=== PATIENT | female | born 1945 | race Caucasian/White ===

== ENCOUNTER 2016-06-10 08:32 | Inpatient (IN) | payer MEDICARE, OTHER ==
[2016-06-10] MEDS ORDERED: ONDANSETRON 4 MG/2 ML VIAL IVP STA (08:39)
--- NOTE | 2016-06-10 08:43 | ED ---
Abdominal Pain HPI - General Stated Complaint: Lethargic/Dehydrated Time Seen by Provider: 06/10/16 08:39 Source: patient, EMS, RN notes reviewed Mode of arrival: EMS Limitations: no limitations - History of Present Illness Initial Comments: This is a 71-year-old female presents emergency department via EMS chief complaint of nausea, vomiting, diarrhea, abdominal pain. Patient states this started on Saturday. Patient states she believes she had a UTI that she call her primary care physician who called her in [facility]. Patient states that the antibiotic seemed different than what she usually takes. Patient states she does have frequent UTIs. Patient states that she feels sick now from 1 dose of antibiotics that she started yesterday. Patient denies any known fever. Patient states that she has lower abdominal pain, some back discomfort. Patient states that she's had multiple abdominal surgeries secondary to colon cancer. Patient denies any chest pain or shortness of breath. Denies any cold- like symptoms. - Related Data Home Medications Medication Instructions Recorded Confirmed ALPRAZolam [Xanax] 0.25 mg PO BID PRN 02/22/16 06/10/16 Albuterol Sulfate [Proair Hfa] 1 puff INHALATION RT-Q6H PRN 02/22/16 06/10/16 Atenolol [Tenormin] 25 mg PO BID 02/22/16 06/10/16 Baclofen [Lioresal] 10 mg PO AC-TID 02/22/16 06/10/16 DULoxetine HCL [Cymbalta] 60 mg PO BID 02/22/16 06/10/16 Famotidine [Pepcid] 40 mg PO BID 02/22/16 06/10/16 Fluticasone/Salmeterol [Advair Hfa 2 puff INHALATION RT-BID 02/22/16 06/10/16 115-21 Mcg Inhaler] Folic Acid 2 mg PO DAILY@1600 02/22/16 06/10/16 Lansoprazole 30 mg PO DAILY@1600 02/22/16 06/10/16 Levothyroxine Sodium [Synthroid] 25 mcg PO DAILY 02/22/16 06/10/16 Loperamide [Imodium] 2 mg PO AC-SUPPER 02/22/16 06/10/16 Losartan [Cozaar] 50 mg PO AC-LUNCH 02/22/16 06/10/16 Pravastatin Sodium [Pravachol] 80 mg PO HS 02/22/16 06/10/16 busPIRone HCL 15 mg PO BID 02/22/16 06/10/16 levETIRAcetam [Keppra] 500 mg PO Q12HR 02/22/16 06/10/16 oxyCODONE-APAP 10-325MG [Percocet 1 tab PO Q6HR PRN 02/22/16 06/10/16 10-325 mg] Ergocalciferol [Vitamin D2] 50,000 unit PO Q7D 06/10/16 06/10/16 Allergies Allergy/AdvReac Type Severity Reaction Status Date / Time fluoxetine [From Prozac] Allergy Unknown Verified 06/10/16 08:50 indomethacin [From Indocin] Allergy Unknown Verified 06/10/16 08:50 Penicillins Allergy Anaphylaxis Verified 06/10/16 08:50 Sulfa (Sulfonamide AdvReac Nausea & Verified 06/10/16 12:08 Antibiotics) Vomiting & Diarrhea Review of Systems ROS Statement: Those systems with pertinent positive or pertinent negative responses have been documented in the HPI. ROS Other: All systems not noted in ROS Statement are negative. Past Medical History Past Medical History: Cancer, Hypertension Additional Past Medical History / Comment(s): anal ca History of Any Multi-Drug Resistant Organisms: None Reported Past Surgical History: Back Surgery, Orthopedic Surgery Additional Past Surgical History / Comment(s): hip knee surg Past Psychological History: No Psychological Hx Reported Smoking Status: Current every day smoker Past Alcohol Use History: None Reported Past Drug Use History: None Reported General Exam General appearance: alert, in no apparent distress Head exam: Present: atraumatic, normocephalic, normal inspection Respiratory exam: Present: normal lung sounds bilaterally. Absent: respiratory distress, wheezes, rales, rhonchi, stridor Cardiovascular Exam: Present: regular rate, normal rhythm, normal heart sounds. Absent: systolic murmur, diastolic murmur, rubs, gallop, clicks GI/Abdominal exam: Present: soft, tenderness (Mild suprapubic tenderness), normal bowel sounds, other (Multiple surgical scars noted). Absent: distended, guarding, rebound, rigid Back exam: Absent: CVA tenderness (R), CVA tenderness (L) Neurological exam: Present: alert, oriented X3, CN II-XII intact Skin exam: Present: warm, dry, intact, normal color. Absent: rash Course Vital Signs 06/10/16 06/10/16 06/10/16 08:36 09:40 09:58 Temperature 98.1 F 97.8 F Pulse Rate 74 73 76 Respiratory 16 16 Rate Blood Pressure 97/55 76/47 90/50 O2 Sat by Pulse 92 L 95 98 Oximetry 06/10/16 06/10/16 06/10/16 10:18 10:38 10:58 Temperature Pulse Rate 80 80 82 Respiratory Rate Blood Pressure 80/52 84/51 84/53 O2 Sat by Pulse 97 97 94 L Oximetry Medical Decision Making - Lab Data Result diagrams: 06/10/16 08:00 06/10/16 08:00 Lab Results 06/10/16 06/10/16 06/10/16 Range/Units 08:00 08:00 08:00 WBC 11.8 H (3.8-10.6) k/uL RBC 3.14 L (3.80-5.40) m/uL Hgb 9.8 L (11.4-16.0) gm/dL Hct 31.4 L (34.0-46.0) % MCV 99.9 (80.0-100.0) fL MCH 31.1 (25.0-35.0) pg MCHC 31.2 (31.0-37.0) g/dL RDW 15.8 H (11.5-15.5) % Plt Count 225 (150-450) k/uL Neutrophils % (Manual) 88.0 % Lymphocytes % (Manual) 4.0 % Monocytes % (Manual) 8.0 % Neutrophils # (Manual) 10.4 H (1.3-7.7) k/uL Lymphocytes # (Manual) 0.5 L (1.0-4.8) k/uL Monocytes # (Manual) 0.9 (0-1.0) k/uL Nucleated RBCs 0 (0-0) /100 WBC Macrocytosis Slight Rouleaux Present PT 10.3 (9.0-12.0) sec INR 1.0 (<1.1) APTT 29.0 (22.0-30.0) sec Sodium 141 (137-145) mmol/L Potassium 3.8 (3.5-5.1) mmol/L Chloride 108 H (98-107) mmol/L Carbon Dioxide 21 L (22-30) mmol/L Anion Gap 12 mmol/L BUN 36 H (7-17) mg/dL Creatinine 1.58 H (0.52-1.04) mg/dL Est GFR (MDRD) Af Amer 39 (>60 ml/min/1.73 sqM) Est GFR (MDRD) Non-Af 32 (>60 ml/min/1.73 sqM) Glucose 94 (74-99) mg/dL Plasma Lactic Acid Juan (0.7-2.0) mmol/L Calcium 8.2 L (8.4-10.2) mg/dL Total Bilirubin 0.5 (0.2-1.3) mg/dL AST 41 H (14-36) U/L ALT 52 (9-52) U/L Alkaline Phosphatase 112 (38-126) U/L Troponin I (0.000-0.034) ng/mL Total Protein 5.6 L (6.3-8.2) g/dL Albumin 2.7 L (3.5-5.0) g/dL Amylase <30 L (30-110) U/L Lipase 42 (23-300) U/L Urine Color Urine Appearance (Clear) Urine pH (5.0-8.0) Ur Specific [place] (1.001-1.035) Urine Protein (Negative) Urine Glucose (UA) (Negative) Urine Ketones (Negative) Urine Blood (Negative) Urine Nitrate (Negative) Urine Bilirubin (Negative) Urine Urobilinogen (<2.0) mg/dL Ur Leukocyte Esterase (Negative) Urine RBC (0-5) /hpf Urine WBC (0-5) /hpf Urine WBC Clumps (None) /hpf Amorphous Sediment (None) /hpf Urine Bacteria (None) /hpf 06/10/16 06/10/16 06/10/16 Range/Units 08:10 09:57 09:57 WBC (3.8-10.6) k/uL RBC (3.80-5.40) m/uL Hgb (11.4-16.0) gm/dL Hct (34.0-46.0) % MCV (80.0-100.0) fL MCH (25.0-35.0) pg MCHC (31.0-37.0) g/dL RDW (11.5-15.5) % Plt Count (150-450) k/uL Neutrophils % (Manual) % Lymphocytes % (Manual) % Monocytes % (Manual) % Neutrophils # (Manual) (1.3-7.7) k/uL Lymphocytes # (Manual) (1.0-4.8) k/uL Monocytes # (Manual) (0-1.0) k/uL Nucleated RBCs (0-0) /100 WBC Macrocytosis Rouleaux PT (9.0-12.0) sec INR (<1.1) APTT (22.0-30.0) sec Sodium (137-145) mmol/L Potassium (3.5-5.1) mmol/L Chloride (98-107) mmol/L Carbon Dioxide (22-30) mmol/L Anion Gap mmol/L BUN (7-17) mg/dL Creatinine (0.52-1.04) mg/dL Est GFR (MDRD) Af Amer (>60 ml/min/1.73 sqM) Est GFR (MDRD) Non-Af (>60 ml/min/1.73 sqM) Glucose (74-99) mg/dL Plasma Lactic Acid Juan 1.0 (0.7-2.0) mmol/L Calcium (8.4-10.2) mg/dL Total Bilirubin (0.2-1.3) mg/dL AST (14-36) U/L ALT (9-52) U/L Alkaline Phosphatase (38-126) U/L Troponin I <0.012 (0.000-0.034) ng/mL Total Protein (6.3-8.2) g/dL Albumin (3.5-5.0) g/dL Amylase (30-110) U/L Lipase (23-300) U/L Urine Color Yellow Urine Appearance Cloudy H (Clear) Urine pH 6.0 (5.0-8.0) Ur Specific [place] 1.014 (1.001-1.035) Urine Protein 2+ H (Negative) Urine Glucose (UA) Negative (Negative) Urine Ketones Negative (Negative) Urine Blood Small H (Negative) Urine Nitrate Negative (Negative) Urine Bilirubin Negative (Negative) Urine Urobilinogen 2.0 (<2.0) mg/dL Ur Leukocyte Esterase Moderate H (Negative) Urine RBC 7 H (0-5) /hpf Urine WBC 29 H (0-5) /hpf Urine WBC Clumps Few H (None) /hpf Amorphous Sediment Occasional H (None) /hpf Urine Bacteria Occasional H (None) /hpf Disposition Clinical Impression: UTI (urinary tract infection), Dehydration, Pneumonitis, Weakness, Nausea vomiting and diarrhea Disposition: ADMITTED IP TO THIS HOSP Condition: Fair Time of Disposition: 12:42
[2016-06-10] MEDS: SODIUM CHLORIDE 0.9% 1,000 ML IV STA ×2 (08:54→10:37)
[2016-06-10 09:06] LABS: Aty Lym Flag Slight; CH 31.4; CHCM 31.5; HCT 31.4 % (34.0-46.0); HDW 2.33; HGB 9.8 gm/dL (11.4-16.0); MCH 31.1 pg (25.0-35.0); MCHC 31.2 g/dL (31.0-37.0); MCV 99.9 fL (80.0-100.0); Macrocytosis Slight; Mean Platelet Volume 8.8; RBC 3.14 m/uL (3.80-5.40); RDW 15.8 % (11.5-15.5); WBC 11.8 k/uL (3.8-10.6); WBC (Perox) 12.08
[2016-06-10 09:14] LABS: Prothrombin Time 10.3 sec (9.0-12.0)
[2016-06-10] MEDS ORDERED: SODIUM CHLORIDE 0.9% 1,000 ML IV ONE ×2 (09:19→12:40)
[2016-06-10 09:21] LABS: ALT 52 U/L (9-52); AST 41 U/L (14-36); Alkaline Phosphatase 112 U/L (38-126); Amylase <30 U/L (30-110); Anion Gap 12 mmol/L; Blood Urea Nitrogen 36 mg/dL (7-17); Calcium 8.2 mg/dL (8.4-10.2); Carbon Dioxide 21 mmol/L (22-30); Chloride 108 mmol/L (98-107); Glucose 94 mg/dL (74-99); Non-African American GFR(MDRD) 32 (>60 ml/min/1.73 sqM); Potassium 3.8 mmol/L (3.5-5.1); Sodium 141 mmol/L (137-145); Total Bilirubin 0.5 mg/dL (0.2-1.3); Total Protein 5.6 g/dL (6.3-8.2)
[2016-06-10 09:59] LABS: Add Differential Manual Differential
[2016-06-10 10:00] LABS: Nucleated Red Blood Cells 0 /100 WBC (0-0); Total Cells Counted 100
[2016-06-10] MEDS ORDERED: LEVOFLOXACIN 750MG-D5W PMX 750 MG in DEXTROSE/WATER 1 150ML.BAG IVPB STA (10:00)
[2016-06-10 10:01] LABS: Rouleaux Present
[2016-06-10 10:17] LABS: Amorphous Sediment,Urine Occasional /hpf; Appearance,Urine Cloudy (Clear); Bacteria,Urine Occasional /hpf; Bilirubin,Urine Negative (Negative); Glucose,Urine (UA) Negative (Negative); Ketones,Urine Negative (Negative); Leukocyte Esterase,Urine Moderate (Negative); Nitrite,Urine Negative (Negative); Particle Count 11376; Protein,Urine 2+ (Negative); RBC,Urine 7 /hpf (0-5); Specific Gravity,Urine 1.014 (1.001-1.035); UA Billing (MACRO vs. MICRO) MICRO; WBC,Urine 29 /hpf (0-5)
--- NOTE | 2016-06-10 11:32 | XR ---
EXAMINATION TYPE: XR chest 1V DATE OF EXAM: 06/10/2016 11:27 AM COMPARISON: 04/11/2012 HISTORY: Shortness of breath TECHNIQUE: Single frontal view of the chest is obtained. FINDINGS: Hyperinflation suggests COPD. No definite pleural effusion or pneumothorax. Coarsened inte rstitium noted. IMPRESSION: 1. COPD correlate for mild venous congestion or interstitial pneumonitis superimposed on a background COPD.
--- NOTE | 2016-06-10 11:33 | XR ---
EXAMINATION TYPE: XR KUB DATE OF EXAM: 06/10/2016 11:27 AM COMPARISON: NONE HISTORY: Abdominal pain, nausea and vomiting FINDINGS: There are air-fluid levels with dilated small bowel loops. Air is seen distally within the colon. Sco liosis and postsurgical changes seen. Postsurgical changes involving the hip joints. IMPRESSION: 1. Nonspecific abdomen. Differential include enteritis or ileus. Partial obstruction not excluded. C orrelate clinically.
[2016-06-10] MEDS ORDERED: ONDANSETRON 4 MG/2 ML VIAL IVP PRN (12:42)
[2016-06-10] MEDS ORDERED: NALOXONE 0.4 MG/ML 1 ML VIAL IV PRN (12:42)
--- NOTE | 2016-06-10 15:41 | P.HPIM ---
History of Present Illness H&P Date: 06/10/16 Chief Complaint: Abdominal pain, altered mental status, UTI with failure to outpatient treat 71-year-old female one of Dr. Delaney's patient is known to have history of colorectal cancer recurrent UTI history of COPD chronic smoking chronic depression and hypothyroidism. Patient apparently was diagnosed with UTI sometime this past week Bactrim was called to the pharmacy patient is taking it yesterday she developed to have significant increase symptom with frequency urgency mild confusion and altered mental status along with worsening pain in the pelvic and lower abdominal area with more change of pinkish color urination with no clot at the time. With severe generalized fatigue and tiredness and low-grade temperature with her current symptom ended up coming to the emergency department [facility] where was seen and evaluated her urine was very positive culture was done at the time. Chest x-ray shows early sign of pneumonitis in the basal area specially in the right side. Patient also was tachypneic and tachycardic along with mild low-grade temperature. Was started on IV Levaquin updraft treatment patient be hospitalized with above problem. Review of Systems Constitutional: Reports anorexia, Reports chronic headaches, Reports fatigue, Reports lethargy, Reports malaise, Reports poor appetite, Reports weakness, Reports weight loss, Denies as per HPI, Denies chills, Denies chronic pain, Denies daytime sleepiness, Denies fever, Denies night sweats, Denies sweats, Denies weight gain Eyes: bilateral as per HPI, bilateral blurred vision Ears: bilateral: decreased hearing, ear discharge Ears, nose, mouth and throat: Reports ant. neck pain, Reports bleeding gums, Reports nasal discharge, Reports sinus pressure, Reports swelling in mouth, Denies as per HPI, Denies dental pain, Denies dysphagia, Denies epistaxis, Denies headache, Denies hoarseness, Denies mouth pain, Denies nasal congestion, Denies neck fullness/pressure, Denies neck lump, Denies nose pain, Denies odynophagia, Denies post-nasal drip, Denies sinus pain, Denies swelling in throat, Denies sore throat, Denies vertigo, Denies voice changes Cardiovascular: Reports chest pain, Reports lightheadedness, Reports orthopnea, Reports palpitations, Denies as per HPI, Denies claudication, Denies decreased exercise tolerance, Denies dyspnea on exertion, Denies edema, Denies high blood pressure, Denies irregular heart beat, Denies leg edema, Denies paroxysmal nocturnal dyspnea, Denies phlebitis, Denies rapid heart beat, Denies shortness of breath, Denies syncope Respiratory: Reports congestion, Reports cough, Reports dyspnea, Denies as per HPI, Denies cough with sputum, Denies excessive sputum, Denies hemoptysis, Denies home oxygen, Denies pain, Denies pain on inspiration, Denies pleurisy, Denies respiratory infections, Denies sleep apnea, Denies snoring, Denies wheezing Gastrointestinal: Reports abdominal pain, Reports bloating, Reports dyspepsia, Reports early satiety, Reports indigestion, Reports nausea, Denies as per HPI, Denies belching, Denies BRBPR, Denies change in bowel habits, Denies coffee ground emesis, Denies constipation, Denies diarrhea, Denies excessive gas, Denies heartburn, Denies hematemesis, Denies hematochezia, Denies jaundice, Denies lactose intolerance, Denies loss of appetite, Denies melena, Denies vomiting Genitourinary: Reports mixed incontinence, Reports nocturia, Reports pelvic pain , Reports stress incontinence, Reports urge incontinence, Reports urgency, Reports urinary frequency, Denies as per HPI, Denies abnormal vaginal bleeding, Denies decreased libido, Denies difficulty conceiving, Denies difficulty voiding , Denies dysmenorrhea, Denies dyspareunia, Denies dysuria, Denies flank pain, Denies genital sores, Denies hematuria, Denies hot flashes, Denies incomplete emptying, Denies kidney stones, Denies menorrhagia, Denies post void dribbling, Denies , Denies prolapse symptoms, Denies vaginal discharge, Denies vaginal dryness, Denies vaginal itching, Denies vaginal odor Musculoskeletal: Reports arm numbness/tingling, Reports frequent falls, Reports gait dysfunction, Reports leg numbness/tingling, Reports limitation of motion, Reports myalgias, Reports neck pain, Reports neck stiffness, Denies as per HPI, Denies atrophy, Denies fractures, Denies hot joints, Denies loss of height, Denies low back pain, Denies morning stiffness, Denies muscle cramps, Denies muscle weakness, Denies prior amputations, Denies redness of joints, Denies shooting arm pain, Denies shooting leg pain Integumentary: Reports pruritus, Reports rash, Denies as per HPI, Denies acne, Denies boils, Denies brittle nails, Denies change in hair/nails, Denies color changes, Denies darkening of skin, Denies depigmentation, Denies dryness, Denies foot/leg ulcers, Denies growths, Denies hirsutism, Denies lesions, Denies onychomycosis, Denies sores, Denies striae, Denies unusual bruising, Denies wounds Neurological: Reports ataxia, Reports convulsions, Reports gait dysfunction, Reports headaches, Reports motor disturbance, Reports numbness, Reports paralysis, Reports paresthesias, Reports tic, Reports tingling, Reports tremors , Reports weakness, Denies as per HPI, Denies aphasia, Denies balance difficulties, Denies burning pain, Denies change in mentation, Denies change in smell/taste, Denies change in speech, Denies confusion, Denies double vision, Denies head injury, Denies hearing difficulties, Denies lack of coordination, Denies loss of vision, Denies memory loss, Denies migraines, Denies seizures, Denies sensory deficit, Denies spasticity, Denies syncope, Denies transient paralysis, Denies vertigo, Denies visual changes Psychiatric: Reports anhedonia, Reports anxiety, Reports anxiety attacks, Reports depression, Reports difficulty concentrating, Reports memory loss, Reports sadness/tearfulness, Reports sleep disturbances, Denies as per HPI, Denies change in appetite, Denies change in libido, Denies change in sleep habits, Denies confusion, Denies disorientation, Denies hallucinations, Denies hopelessness, Denies hypersomnia, Denies insomnia, Denies irritability, Denies mood swings, Denies paranoia, Denies suicidal ideation Endocrine: Reports cold intolerance, Reports deepening of the voice, Reports excessive thirst, Reports flushing, Reports high blood sugars, Denies as per HPI , Denies excessive sweating, Denies fatigue, Denies heat intolerance, Denies increase in ring/shoe/hat size, Denies low blood sugars, Denies nocturia, Denies palpitations, Denies polydipsia, Denies polyphagia, Denies polyuria, Denies proptosis, Denies recent glucocorticoid use, Denies thyroid mass, Denies weight change Hematologic/Lymphatic: Reports easy bruising, Denies as per HPI, Denies easy bleeding, Denies lymphadenopathy, Denies lymphedema, Denies thrombophilia Allergic/Immunologic: Reports allergic rhinitis, Denies as per HPI, Denies anaphylaxis, Denies angioedema, Denies gluten intolerance, Denies persistent infections, Denies seasonal allergies, Denies urticaria, Denies wheezing Past Medical History Past Medical History: Cancer, Hypertension Additional Past Medical History / Comment(s): anal ca History of Any Multi-Drug Resistant Organisms: None Reported Past Surgical History: Back Surgery, Orthopedic Surgery Additional Past Surgical History / Comment(s): hip knee surg Past Psychological History: No Psychological Hx Reported Smoking Status: Current every day smoker Past Alcohol Use History: None Reported Past Drug Use History: None Reported Medications and Allergies Home Medications Medication Instructions Recorded Confirmed Type ALPRAZolam [Xanax] 0.25 mg PO BID PRN 02/22/16 06/10/16 History Atenolol [Tenormin] 25 mg PO DAILY 02/22/16 06/10/16 History Baclofen [Lioresal] 10 mg PO TID 02/22/16 06/10/16 History DULoxetine HCL [Cymbalta] 60 mg PO BID 02/22/16 06/10/16 History Famotidine [Pepcid] 40 mg PO BID 02/22/16 06/10/16 History Fluticasone/Salmeterol [Advair Hfa 1 puff INHALATION RT-HS 02/22/16 06/10/16 History 115-21 Mcg Inhaler] Folic Acid 2 mg PO DAILY 02/22/16 06/10/16 History Lansoprazole 30 mg PO DAILY 02/22/16 06/10/16 History Levothyroxine Sodium [Synthroid] 25 mcg PO DAILY 02/22/16 06/10/16 History Losartan [Cozaar] 50 mg PO DAILY 02/22/16 06/10/16 History Pravastatin Sodium [Pravachol] 80 mg PO HS 02/22/16 06/10/16 History busPIRone HCL 15 mg PO DAILY 02/22/16 06/10/16 History levETIRAcetam [Keppra] 500 mg PO Q12HR 02/22/16 06/10/16 History oxyCODONE-APAP 10-325MG [Percocet 1 tab PO Q6HR PRN 02/22/16 06/10/16 History 10-325 mg] Ergocalciferol [Vitamin D2] 50,000 unit PO Q7D 06/10/16 06/10/16 History Sulfamethox-Tmp 800-160Mg [Bactrim 1 tab PO BID 06/10/16 06/10/16 History DS 800-160 mg] Allergies Allergy/AdvReac Type Severity Reaction Status Date / Time fluoxetine [From Prozac] Allergy Unknown Verified 06/10/16 08:50 indomethacin [From Indocin] Allergy Unknown Verified 06/10/16 08:50 Penicillins Allergy Anaphylaxis Verified 06/10/16 08:50 Sulfa (Sulfonamide AdvReac Nausea & Verified 06/10/16 12:08 Antibiotics) Vomiting & Diarrhea Physical Exam Vitals: Vital Signs Pulse Resp BP Pulse Ox 06/10/16 14:58 84 18 103/56 97 06/10/16 14:18 83 98/57 95 06/10/16 13:50 82 18 93/54 97 06/10/16 12:48 74 80/47 97 - Constitutional General appearance: no average body habitus, cooperative, disheveled, no mild distress, no morbidly obese, no acute distress, no obese, no severe distress, thin - EENT Eyes: abnormal pupil, no anicteric sclerae, no disc margins sharp, no edentulous , no EOMI, no PERRLA, no fundus normal, no photophobia, no dentition normal, no poor dentition, no ptosis, no scleral icterus, no normal appearance ENT: no hard of hearing, no NA/AT, normal oropharynx, no other, pharyngeal erythema, no thrush, no tonsillar exudates, no tonsillar swelling Ears: bilateral: normal - Neck Neck: no lymphadenopathy, normal ROM, no other, no rigidity, no stridor, no thyromegaly Carotids: bilateral: upstroke normal, upstroke delayed Thyroid: bilateral: normal size, enlarged - Respiratory Respiratory: bilateral: CTA, diminished, dullness, rhonchi - Cardiovascular Rhythm: regular Heart sounds: normal: S1, S2 Abnormal Heart Sounds: systolic murmur, S3 Gallop - Gastrointestinal General gastrointestinal: no absent bowel sounds, no decreased bowel sounds, distended, no hepatomegaly, no hyperactive bowel sounds, normal bowel sounds, no organomegaly, no rigid, no scaphoid, soft, no splenomegaly, tenderness, no umbilical hernia, no ventral hernia - Integumentary Integumentary: no calor, no cellulitis, no cyanotic, no decreased turgor, no flushed, no jaundiced, normal, no normal turgor, pale, rash, no ulcer - Neurologic Neurologic: CNII-XII intact - Musculoskeletal Musculoskeletal: gait normal, generalized weakness, no strength equal bilaterally, no right sided weakness, no left sided weakness - Psychiatric Psychiatric: A&O x's 3, appropriate affect Results CBC & Chem 7: 06/10/16 08:00 06/10/16 08:00 Thrombosis Risk Factor Assmnt - DVT/VTE Prophylaxis DVT/VTE Prophylaxis: Pharmacologic Prophylaxis ordered Assessment and Plan Plan: 1 sepsis/UTI: With failure to outpatient treatment despite the sensitivity of bacteria to Bactrim patient is not well with it was patient to Levaquin blood culture was done continue to watch her symptoms can add Pyridium and increase fluid intake currently. 2 acute kidney injury most likely ATN: Patient be hydrated take away any of for renal medication for now watch symptoms closely. 3 early pneumonitis: With current symptoms patient be started on Ventolin inhaler along with her HFA oxygen and antibiotic with Mucinex. 4 increase abdominal pain: Most likely combination of UTI with sepsis and severe attack ulcer disease continue lansoprazole continue treatment for UTI. 5 seizure: Has been doing well on Keppra 500 mg twice a day. 6 chronic history of anal cancer: Patient still seen oncology on regular basis. 7 hyperlipidemia: On Pravachol 80 mg daily. 8 hypertension: Remain on Tenormin 25 mg twice a day along with losartan 50 mg daily. 9 Chronic depression: Has been on Cymbalta 60 mg twice a day and BuSpar 15 mg twice a day. 10 change in bowel habits with diarrhea: Patient has been on Imodium almost on regular basis. 11 severe GERD/GI prophylaxis: Patient remain on lansoprazole continue medication. 12 DVT prophylaxis: Patient will be on knee-high CHRISTELLE hose and Venodyne boots. 13 chronic pain syndrome: Has been on Percocet was taking off fentanyl recently because of tremor. CODE STATUS: Full code. Expectation from this admission: Patient be in the hospital for more than 2 nights.
[2016-06-10] MEDS ORDERED: ERGOCALCIFEROL 50,000 UNIT CAP PO SCH (15:45)
[2016-06-10] MEDS: SODIUM CHLORIDE 0.9% 1,000 ML IV SCH (16:23)
[2016-06-10] MEDS: BACLOFEN 10 MG TAB PO SCH ×2 (17:48→21:56)
[2016-06-10 18:30] VITALS: BMI 18.8
[2016-06-10] MEDS: SYMBICORT 80-4.5 MCG INHALER INHALATION SCH (19:15)
[2016-06-10] MEDS: ALPRAZolam 0.25 MG TAB PO PRN (21:52)
[2016-06-10] MEDS: DULoxetine HCL 60 MG CAPSULE.DR PO SCH (21:52)
[2016-06-10] MEDS: PRAVASTATIN SODIUM 80 MG TAB PO SCH (21:56)
[2016-06-10] MEDS: levETIRAcetam 500 MG TAB PO SCH (21:56)
[2016-06-10] MEDS: FAMOTIDINE 20 MG TAB PO SCH (22:05)
[2016-06-11] MEDS: SODIUM CHLORIDE 0.9% 1,000 ML IV SCH ×2 (00:21→12:25)
[2016-06-11] MEDS: LEVOTHYROXINE 25 MCG TAB PO SCH (06:12)
[2016-06-11] MEDS: LOSARTAN 50 MG TAB PO SCH (09:03)
[2016-06-11] MEDS: DULoxetine HCL 60 MG CAPSULE.DR PO SCH ×2 (09:03→21:43)
[2016-06-11] MEDS: levETIRAcetam 500 MG TAB PO SCH ×2 (09:03→21:43)
[2016-06-11] MEDS: busPIRone HCl 5 MG TAB PO SCH (09:04)
[2016-06-11] MEDS: FAMOTIDINE 20 MG TAB PO SCH (09:04)
[2016-06-11] MEDS: PANTOPRAZOLE 40 MG TABLET PO SCH (09:04)
[2016-06-11] MEDS: BACLOFEN 10 MG TAB PO SCH ×3 (09:04→21:43)
[2016-06-11] MEDS: ATENOLOL 25 MG TAB PO SCH (09:04)
[2016-06-11 09:05] LABS: Aty Lym Flag Slight; CH 30.8; CHCM 29.6; HCT 30.3 % (34.0-46.0); HDW 2.35; HGB 9.4 gm/dL (11.4-16.0); Hypochromasia Marked; MCH 32.2 pg (25.0-35.0); MCHC 30.9 g/dL (31.0-37.0); MCV 104.3 fL (80.0-100.0); Macrocytosis Moderate; Mean Platelet Volume 8.9; RBC 2.91 m/uL (3.80-5.40); RDW 15.9 % (11.5-15.5); WBC 9.8 k/uL (3.8-10.6); WBC (Perox) 10.04
[2016-06-11 09:59] LABS: Calcium 7.5 mg/dL (8.4-10.2); Potassium 4.3 mmol/L (3.5-5.1); Total Bilirubin 0.4 mg/dL (0.2-1.3); Total Protein 4.7 g/dL (6.3-8.2)
[2016-06-11 10:26] LABS: Add Differential Manual Differential
[2016-06-11 10:35] LABS: Nucleated Red Blood Cells 0 /100 WBC (0-0); Total Cells Counted 100
[2016-06-11 10:36] LABS: Manual Review Performed
[2016-06-11 10:37] LABS: Rouleaux Present
[2016-06-11] MEDS: FOLIC ACID 1 MG TAB PO SCH (12:26)
[2016-06-11] MEDS: LEVOFLOXACIN 500MG-D5W PMX 500 MG in DEXTROSE/WATER 1 100ML.BAG IVPB SCH (14:03)
[2016-06-11] MEDS: DEXTROSE 5%-0.45% NACL 1,000 ML IV SCH (14:04)
[2016-06-11] MEDS: NYSTATIN 100,000 UNIT/ML SUSP 500,000 UNIT/5 ML CUP PO SCH ×3 (14:04→21:43)
--- NOTE | 2016-06-11 16:23 | P.PN ---
Subjective 71-year-old female one of Dr. Delaney's patient is known to have history of colorectal cancer recurrent UTI history of COPD chronic smoking chronic depression and hypothyroidism. Patient apparently was diagnosed with UTI sometime this past week Bactrim was called to the pharmacy patient is taking it yesterday she developed to have significant increase symptom with frequency urgency mild confusion and altered mental status along with worsening pain in the pelvic and lower abdominal area with more change of pinkish color urination with no clot at the time. With severe generalized fatigue and tiredness and low-grade temperature with her current symptom ended up coming to the emergency department [facility] where was seen and evaluated her urine was very positive culture was done at the time. Chest x-ray shows early sign of pneumonitis in the basal area specially in the right side. Patient also was tachypneic and tachycardic along with mild low-grade temperature. Was started on IV Levaquin updraft treatment patient be hospitalized with above problem. 06/11: Repeat hemoglobin 9.4, BUN 20 and creatinine 1.1. Urine culture has been finalized with no growth at 18 hours. Objective - Vital Signs Vital signs: Vital Signs Temp 97.7 F 06/11/16 07:00 Pulse 92 06/11/16 07:00 Resp 16 06/11/16 07:00 BP 114/58 06/11/16 07:00 Pulse Ox 99 06/11/16 07:00 Intake & Output 06/10/16 06/11/16 06/11/16 18:59 06:59 18:59 Intake Total 590 240 Balance 590 240 Weight 48.081 kg 48.081 kg Intake: Oral 590 240 Other: Voiding Method Diaper Diaper Diaper Incontinent Incontinent Incontinent # Voids 2 2 - Exam General appearance: no average body habitus, cooperative, disheveled, no mild distress, no morbidly obese, no acute distress, no obese, no severe distress, thin - EENT Eyes: abnormal pupil, no anicteric sclerae, no disc margins sharp, no edentulous , no EOMI, no PERRLA, no fundus normal, no photophobia, no dentition normal, no poor dentition, no ptosis, no scleral icterus, no normal appearance ENT: no hard of hearing, no NA/AT, normal oropharynx, no other, pharyngeal erythema, no thrush, no tonsillar exudates, no tonsillar swelling Ears: bilateral: normal - Neck Neck: no lymphadenopathy, normal ROM, no other, no rigidity, no stridor, no thyromegaly Carotids: bilateral: upstroke normal, upstroke delayed Thyroid: bilateral: normal size, enlarged - Respiratory Respiratory: bilateral: CTA, diminished, dullness, rhonchi - Cardiovascular Rhythm: regular Heart sounds: normal: S1, S2 Abnormal Heart Sounds: systolic murmur, S3 Gallop - Gastrointestinal General gastrointestinal: no absent bowel sounds, no decreased bowel sounds, distended, no hepatomegaly, no hyperactive bowel sounds, normal bowel sounds, no organomegaly, no rigid, no scaphoid, soft, no splenomegaly, tenderness, no umbilical hernia, no ventral hernia - Integumentary Integumentary: no calor, no cellulitis, no cyanotic, no decreased turgor, no flushed, no jaundiced, normal, no normal turgor, pale, rash, no ulcer - Neurologic Neurologic: CNII-XII intact - Musculoskeletal Musculoskeletal: gait normal, generalized weakness, no strength equal bilaterally, no right sided weakness, no left sided weakness - Psychiatric Psychiatric: A&O x's 3, appropriate affect - Labs CBC & Chem 7: 06/11/16 08:32 06/11/16 08:39 Labs: Abnormal Lab Results - Last 24 Hours (Table) 06/11/16 06/11/16 Range/Units 08:32 08:39 RBC 2.91 L (3.80-5.40) m/uL Hgb 9.4 L (11.4-16.0) gm/dL Hct 30.3 L (34.0-46.0) % MCV 104.3 H (80.0-100.0) fL MCHC 30.9 L (31.0-37.0) g/dL RDW 15.9 H (11.5-15.5) % Neutrophils # (Manual) 8.4 H (1.3-7.7) k/uL Lymphocytes # (Manual) 0.6 L (1.0-4.8) k/uL Chloride 118 H (98-107) mmol/L Carbon Dioxide 17 L (22-30) mmol/L BUN 20 H (7-17) mg/dL Creatinine 1.10 H (0.52-1.04) mg/dL Calcium 7.5 L (8.4-10.2) mg/dL AST 87 H (14-36) U/L ALT 65 H (9-52) U/L Total Protein 4.7 L (6.3-8.2) g/dL Albumin 2.2 L (3.5-5.0) g/dL Assessment and Plan Plan: 1 sepsis/UTI: With failure to outpatient treatment despite the sensitivity of bacteria to Bactrim patient is not well with it was patient to Levaquin blood culture was done continue to watch her symptoms can add Pyridium and increase fluid intake currently. 2 acute kidney injury most likely ATN: Patient be hydrated take away any of for renal medication for now watch symptoms closely. 3 early pneumonitis: With current symptoms patient be started on Ventolin inhaler along with her HFA oxygen and antibiotic with Mucinex. 4 increase abdominal pain: Most likely combination of UTI with sepsis and severe attack ulcer disease continue lansoprazole continue treatment for UTI. 5 seizure: Has been doing well on Keppra 500 mg twice a day. 6 chronic history of anal cancer: Patient still seen oncology on regular basis. 7 hyperlipidemia: On Pravachol 80 mg daily. 8 hypertension: Remain on Tenormin 25 mg twice a day along with losartan 50 mg daily. 9 Chronic depression: Has been on Cymbalta 60 mg twice a day and BuSpar 15 mg twice a day. 10 change in bowel habits with diarrhea: Patient has been on Imodium almost on regular basis. 11 severe GERD/GI prophylaxis: Patient remain on lansoprazole continue medication. 12 DVT prophylaxis: Patient will be on knee-high CHRISTELLE hose and Venodyne boots. 13 chronic pain syndrome: Has been on Percocet was taking off fentanyl recently because of tremor. CODE STATUS: Full code. Discharge plan: Return home with [facility] Impression and plan of care have been directed as dictated by the signing physician. Louisa Edmond nurse practitioner acting as scribe for signing physician. Time with Patient: Greater than 30
[2016-06-11] MEDS: SYMBICORT 80-4.5 MCG INHALER INHALATION SCH (19:14)
[2016-06-11] MEDS: ALPRAZolam 0.25 MG TAB PO PRN (19:17)
[2016-06-11] MEDS: PRAVASTATIN SODIUM 80 MG TAB PO SCH (21:43)
[2016-06-12] MEDS: ACETAMINOPHEN TAB 325 MG TAB PO PRN ×3 (01:15→21:33)
[2016-06-12] MEDS: DEXTROSE 5%-0.45% NACL 1,000 ML IV SCH ×3 (01:16→12:28)
[2016-06-12] MEDS: SODIUM CHLORIDE 0.9% 1,000 ML IV SCH ×2 (02:26→07:41)
[2016-06-12] MEDS: LEVOTHYROXINE 25 MCG TAB PO SCH (05:43)
[2016-06-12] MEDS: DULoxetine HCL 60 MG CAPSULE.DR PO SCH ×2 (09:47→21:35)
[2016-06-12] MEDS: NYSTATIN 100,000 UNIT/ML SUSP 500,000 UNIT/5 ML CUP PO SCH ×4 (09:47→21:36)
[2016-06-12] MEDS: busPIRone HCl 5 MG TAB PO SCH (09:47)
[2016-06-12] MEDS: ATENOLOL 25 MG TAB PO SCH (09:47)
[2016-06-12] MEDS: levETIRAcetam 500 MG TAB PO SCH ×2 (09:47→21:36)
[2016-06-12] MEDS: PANTOPRAZOLE 40 MG TABLET PO SCH (09:47)
[2016-06-12] MEDS: BACLOFEN 10 MG TAB PO SCH ×3 (09:48→21:35)
[2016-06-12] MEDS: LOSARTAN 50 MG TAB PO SCH (09:48)
--- NOTE | 2016-06-12 11:23 | CDI ---
In responding to this query, please exercise your independent professional judgment. The [facility] Coding Staff and Clinical Documentation Specialists appreciate your assistance in clarifying documentation, maintaining compliance with coding guidelines, accurately documenting patients condition and capturing severity of illness. The fact that a question is asked does not imply that any particular answer is desired or expected. Communication forms are a method of clarifying documentation and are not made part of the Legal Health Record. Thank you in advance for your clarification. Last Revision, July 2015 Dayorosibel Najera [address] [place] [address] Documentation Clarification Form Date: 06/12/2016 11:08:00 AM From: Cristopher Schmidt, RN, BSN, CDI Admit Date: 06/10/2016 4:46:00 PM Patient Name: Aspen Mendoza Visit Number: [id number] Dr. Juan Lorenzo: Altered mental status and mild confusion was documented in the H&P. Patient history/risk factors: 71 yo female with history of frequent/recurrent UTI's. Currently being treatment for "sepsis/UTI with failed outpatient treatment, SANDRA most likely ATN and early pneumonitis". She has a history of chronic pain syndrome currently taking Percocet at home. Clinical Indicators: Per the H&P, "the patient was diagnosed with UTI last week and treated with Bactrim. Yesterday, she developed significant increase in symptoms with frequency, urgency, mild confusion and altered mental status". She reports fatigue and tiredness with low grade fever. Labs: WBC: 11.8, +UA Chest X Ray: COPD correlate or mild venous congestion or interstitial pneumonitis Treatment: Levaquin, Tylenol, IVF @100cc/hr, 3L fluid bolus given in ED Urine/blood cultures: pending In your professional opinion, please clarify the etiology of the altered mental status, if known. Metabolic Encephalopathy * Septic Encephalopathy * Toxic Encephalopathy Delirium (specify cause) Other condition (please specify) Unable to determine Please document in your progress notes and discharge summary in order to capture severity of illness and risk of mortality. Include clinical findings that support your diagnosis. FYI: Press F11 to launch patient chart. Place X here if this finding has no clinical significance, is not applicable or if you are not able to provide any additional documentation. MTDD
--- NOTE | 2016-06-12 11:33 | CDI ---
In responding to this query, please exercise your independent professional judgment. The [facility] Coding Staff and Clinical Documentation Specialists appreciate your assistance in clarifying documentation, maintaining compliance with coding guidelines, accurately documenting patients condition and capturing severity of illness. The fact that a question is asked does not imply that any particular answer is desired or expected. Communication forms are a method of clarifying documentation and are not made part of the Legal Health Record. Thank you in advance for your clarification. Last Revision, March 2015 Dayo Najera [address] [place] [address] Documentation Clarification Form Date: 06/12/2016 11:24:00 AM From: Cristopher Schmidt, RN, BSN, CDI Admit Date: 06/10/2016 4:46:00 PM Patient Name: Aspen Mendoza Visit Number: [id number] Dr. Juan Lorenzo: History/Risk Factors: 71 yo female with a history of anal cancer, back surgery , chronic pain syndrome, and active smoker Clinical Indicators: She reports anorexia, fatigue, lethargy, poor appetite, weight loss Labs: Total Protein: 5.6->4.7, Albumin: 2.7->2.2 Current BMI: 18.8 Decreased hand coat agent strength: reports arm numbness/tingling, frequent falls and gait dysfunction Treatment: Dietary Consult: pending Supplements: Ensure, Magic Cup In your professional opinion, can you please clarify if these findings signify one of the following conditions? Mild Protein Malnutrition Mild Protein-Calorie Malnutrition Moderate Protein Malnutrition Moderate Protein-Calorie Malnutrition Severe Protein Malnutrition Severe Protein-Calorie Malnutrition Malnutrition following GI surgery Malnutrition Other condition, please specify Unable to determine Please document in your progress notes and discharge summary in order to capture severity of illness and risk of mortality. Include clinical findings that support your diagnosis. FYI: Press F11 to launch patient chart. Place X here if this finding has no clinical significance, is not applicable or if you are not able to provide any additional documentation. MTDD
[2016-06-12] MEDS: LEVOFLOXACIN 500MG-D5W PMX 500 MG in DEXTROSE/WATER 1 100ML.BAG IVPB SCH (12:28)
[2016-06-12] MEDS: FOLIC ACID 1 MG TAB PO SCH (12:29)
--- NOTE | 2016-06-12 14:32 | P.PN ---
Subjective 71-year-old female one of Dr. Delaney's patient is known to have history of colorectal cancer recurrent UTI history of COPD chronic smoking chronic depression and hypothyroidism. Patient apparently was diagnosed with UTI sometime this past week Bactrim was called to the pharmacy patient is taking it yesterday she developed to have significant increase symptom with frequency urgency mild confusion and altered mental status along with worsening pain in the pelvic and lower abdominal area with more change of pinkish color urination with no clot at the time. With severe generalized fatigue and tiredness and low-grade temperature with her current symptom ended up coming to the emergency department [facility] where was seen and evaluated her urine was very positive culture was done at the time. Chest x-ray shows early sign of pneumonitis in the basal area specially in the right side. Patient also was tachypneic and tachycardic along with mild low-grade temperature. Was started on IV Levaquin updraft treatment patient be hospitalized with above problem. 06/11: Repeat hemoglobin 9.4, BUN 20 and creatinine 1.1. Urine culture has been finalized with no growth at 18 hours. 06/12: Patient was started on nystatin swish and swallow for thrush yesterday. IV fluids will be decreased to 75 mL per hour. Pulse ox currently 89% on 2 L and patient will be monitored for home O2 need. Objective - Vital Signs Vital signs: Vital Signs Temp 96.9 F L 06/12/16 07:00 Pulse 79 06/12/16 07:00 Resp 16 06/12/16 07:00 BP 120/56 06/12/16 07:00 Pulse Ox 98 06/12/16 07:00 Intake & Output 06/11/16 06/12/16 06/12/16 18:59 06:59 18:59 Intake Total 1380 1390 Balance 1380 1390 Weight 48.081 kg 48.081 kg Intake: IV 900 800 Levofloxacin 500Mg-D5w 100 Pmx 500 mg In Dextrose/ Water 1 100ml.bag @ 100 mls/hr IVPB Q24H [facility] Rx#: [id number] Sodium Chloride 0.9% 1, 800 800 000 ml @ 100 mls/hr IV . Q10H [facility] Rx#:[id number] Oral 480 590 Other: Voiding Method Diaper Diaper Incontinent Incontinent # Voids 1 1 - Exam General appearance: no average body habitus, cooperative, disheveled, no mild distress, no morbidly obese, no acute distress, no obese, no severe distress, thin - EENT Eyes: abnormal pupil, no anicteric sclerae, no disc margins sharp, no edentulous , no EOMI, no PERRLA, no fundus normal, no photophobia, no dentition normal, no poor dentition, no ptosis, no scleral icterus, no normal appearance ENT: no hard of hearing, no NA/AT, normal oropharynx, no other, pharyngeal erythema, no thrush, no tonsillar exudates, no tonsillar swelling Ears: bilateral: normal - Neck Neck: no lymphadenopathy, normal ROM, no other, no rigidity, no stridor, no thyromegaly Carotids: bilateral: upstroke normal, upstroke delayed Thyroid: bilateral: normal size, enlarged - Respiratory Respiratory: bilateral: CTA, diminished, dullness, rhonchi - Cardiovascular Rhythm: regular Heart sounds: normal: S1, S2 Abnormal Heart Sounds: systolic murmur, S3 Gallop - Gastrointestinal General gastrointestinal: no absent bowel sounds, no decreased bowel sounds, distended, no hepatomegaly, no hyperactive bowel sounds, normal bowel sounds, no organomegaly, no rigid, no scaphoid, soft, no splenomegaly, tenderness, no umbilical hernia, no ventral hernia - Integumentary Integumentary: no calor, no cellulitis, no cyanotic, no decreased turgor, no flushed, no jaundiced, normal, no normal turgor, pale, rash, no ulcer - Neurologic Neurologic: CNII-XII intact - Musculoskeletal Musculoskeletal: gait normal, generalized weakness, no strength equal bilaterally, no right sided weakness, no left sided weakness - Psychiatric Psychiatric: A&O x's 3, appropriate affect - Labs CBC & Chem 7: 06/11/16 08:32 06/11/16 08:39 Assessment and Plan Plan: 1 sepsis and UTIwith metabolic encephalopathy: With failure to outpatient treatment . Continue Levaquin 2 acute kidney injury most likely ATN: Patient be hydrated take away any of for renal medication for now watch symptoms closely. 3 early pneumonitis: With current symptoms patient be started on Ventolin inhaler along with her HFA oxygen and antibiotic with Mucinex. 4 increase abdominal pain: Most likely combination of UTI with sepsis and severe attack ulcer disease continue lansoprazole continue treatment for UTI. 5 seizure: Has been doing well on Keppra 500 mg twice a day. 6 chronic history of anal cancer: Patient still seen oncology on regular basis. 7 hyperlipidemia: On Pravachol 80 mg daily. 8 hypertension: Remain on Tenormin 25 mg twice a day along with losartan 50 mg daily. 9 Chronic depression: Has been on Cymbalta 60 mg twice a day and BuSpar 15 mg twice a day. 10 change in bowel habits with diarrhea: Patient has been on Imodium almost on regular basis. 11 severe GERD/GI prophylaxis: Patient remain on lansoprazole continue medication. 12 DVT prophylaxis: Patient will be on knee-high CHRISTELLE hose and Venodyne boots. 13 chronic pain syndrome: Has been on Percocet was taking off fentanyl recently because of tremor. 14. Severe protein calorie malnutrition with BMI of 18,albumin 2.2. Continue supplements. 15. Possible need for home O2 for chronic hypoxic respiratory failure. Patient is being monitored. 16. Oral thrush. Patient started on nystatin. CODE STATUS: Full code. Discharge plan: Return home with [facility] Impression and plan of care have been directed as dictated by the signing physician. Louisa Edmond nurse practitioner acting as scribe for signing physician. Time with Patient: Greater than 30
[2016-06-12] MEDS: HEPARIN SODIUM,PORCINE 5,000 UNIT/ML 1 ML VIAL SQ SCH (15:31)
[2016-06-12] MEDS: SYMBICORT 80-4.5 MCG INHALER INHALATION SCH (21:01)
[2016-06-12] MEDS: PRAVASTATIN SODIUM 80 MG TAB PO SCH (21:35)
[2016-06-13] MEDS: HEPARIN SODIUM,PORCINE 5,000 UNIT/ML 1 ML VIAL SQ SCH ×4 (00:19→23:30)
[2016-06-13] MEDS: DEXTROSE 5%-0.45% NACL 1,000 ML IV SCH ×5 (00:19→23:33)
[2016-06-13] MEDS: ALPRAZolam 0.25 MG TAB PO PRN ×2 (00:22→12:23)
[2016-06-13] MEDS: ACETAMINOPHEN TAB 325 MG TAB PO PRN ×3 (04:42→20:32)
[2016-06-13] MEDS: LEVOTHYROXINE 25 MCG TAB PO SCH (06:22)
[2016-06-13 07:44] LABS: Anisocytosis Slight; CH 31.1; CHCM 31.5; HCT 28.8 % (34.0-46.0); HDW 2.73; HGB 9.2 gm/dL (11.4-16.0); Hypochromasia Slight; MCH 31.6 pg (25.0-35.0); MCHC 31.9 g/dL (31.0-37.0); Macrocytosis Slight; Mean Platelet Volume 9.7; RDW 16.2 % (11.5-15.5); WBC 8.1 k/uL (3.8-10.6)
[2016-06-13 07:45] LABS: MCV 99.3 fL (80.0-100.0)
[2016-06-13 08:02] LABS: Anion Gap 9 mmol/L; Blood Urea Nitrogen 9 mg/dL (7-17); Calcium 8.1 mg/dL (8.4-10.2); Carbon Dioxide 19 mmol/L (22-30); Chloride 113 mmol/L (98-107); Glucose 106 mg/dL (74-99); Non-African American GFR(MDRD) >60 (>60 ml/min/1.73 sqM); Potassium 3.5 mmol/L (3.5-5.1); Sodium 141 mmol/L (137-145)
[2016-06-13] MEDS: SYMBICORT 80-4.5 MCG INHALER INHALATION SCH (08:06)
[2016-06-13] MEDS: BACLOFEN 10 MG TAB PO SCH ×3 (09:13→20:33)
[2016-06-13] MEDS: PANTOPRAZOLE 40 MG TABLET PO SCH (09:13)
[2016-06-13] MEDS: levETIRAcetam 500 MG TAB PO SCH ×2 (09:13→20:33)
[2016-06-13] MEDS: DULoxetine HCL 60 MG CAPSULE.DR PO SCH ×2 (09:13→20:33)
[2016-06-13] MEDS: busPIRone HCl 5 MG TAB PO SCH (09:14)
[2016-06-13] MEDS: ATENOLOL 25 MG TAB PO SCH (09:14)
[2016-06-13] MEDS: LOSARTAN 50 MG TAB PO SCH (09:15)
[2016-06-13] MEDS: NYSTATIN 100,000 UNIT/ML SUSP 500,000 UNIT/5 ML CUP PO SCH ×4 (09:15→20:33)
[2016-06-13] MEDS: LEVOFLOXACIN 250 MG TAB PO SCH (12:20)
[2016-06-13] MEDS: FOLIC ACID 1 MG TAB PO SCH (12:20)
--- NOTE | 2016-06-13 17:22 | P.PN ---
Subjective 71-year-old female one of Dr. Delaney's patient is known to have history of colorectal cancer recurrent UTI history of COPD chronic smoking chronic depression and hypothyroidism. Patient apparently was diagnosed with UTI sometime this past week Bactrim was called to the pharmacy patient is taking it yesterday she developed to have significant increase symptom with frequency urgency mild confusion and altered mental status along with worsening pain in the pelvic and lower abdominal area with more change of pinkish color urination with no clot at the time. With severe generalized fatigue and tiredness and low-grade temperature with her current symptom ended up coming to the emergency department [facility] where was seen and evaluated her urine was very positive culture was done at the time. Chest x-ray shows early sign of pneumonitis in the basal area specially in the right side. Patient also was tachypneic and tachycardic along with mild low-grade temperature. Was started on IV Levaquin updraft treatment patient be hospitalized with above problem. 06/11: Repeat hemoglobin 9.4, BUN 20 and creatinine 1.1. Urine culture has been finalized with no growth at 18 hours. 06/12: Patient was started on nystatin swish and swallow for thrush yesterday. IV fluids will be decreased to 75 mL per hour. Pulse ox currently 89% on 2 L and patient will be monitored for home O2 need. 06/13: Patient states that she is having frequent diarrhea and cramping. C diff toxin ordered. IV fluids increased to 100 cc/hr. Percocet resumed from home. Objective - Vital Signs Vital signs: Vital Signs Temp 98.0 F 06/13/16 07:00 Pulse 88 06/13/16 08:00 Resp 18 06/13/16 08:00 BP 145/71 06/13/16 07:00 Pulse Ox 97 06/13/16 07:00 Intake & Output 06/12/16 06/13/16 06/13/16 18:59 06:59 18:59 Intake Total 1250 300 Balance 1250 300 Weight 48.081 kg 48.081 kg Intake: IV 850 300 Dextrose 5%-0.45% NaCl 1, 150 300 000 ml @ 75 mls/hr IV . [id number] [facility] Rx#:[id number] Levofloxacin 500Mg-D5w 100 Pmx 500 mg In Dextrose/ Water 1 100ml.bag @ 100 mls/hr IVPB Q24H [facility] Rx#: [id number] Sodium Chloride 0.9% 1, 600 000 ml @ 100 mls/hr IV . Q10H [facility] Rx#:[id number] Oral 400 Other: Voiding Method Diaper Bedside Commode Bedside Commode Incontinent Diaper Diaper Incontinent Incontinent # Voids 1 4 1 # Bowel Movements 1 - Exam General appearance: no average body habitus, cooperative, disheveled, no mild distress, no morbidly obese, no acute distress, no obese, no severe distress, thin - EENT Eyes: abnormal pupil, no anicteric sclerae, no disc margins sharp, no edentulous , no EOMI, no PERRLA, no fundus normal, no photophobia, no dentition normal, no poor dentition, no ptosis, no scleral icterus, no normal appearance ENT: no hard of hearing, no NA/AT, normal oropharynx, no other, pharyngeal erythema, no thrush, no tonsillar exudates, no tonsillar swelling Ears: bilateral: normal - Neck Neck: no lymphadenopathy, normal ROM, no other, no rigidity, no stridor, no thyromegaly Carotids: bilateral: upstroke normal, upstroke delayed Thyroid: bilateral: normal size, enlarged - Respiratory Respiratory: bilateral: CTA, diminished, dullness, rhonchi - Cardiovascular Rhythm: regular Heart sounds: normal: S1, S2 Abnormal Heart Sounds: systolic murmur, S3 Gallop - Gastrointestinal General gastrointestinal: no absent bowel sounds, no decreased bowel sounds, distended, no hepatomegaly, no hyperactive bowel sounds, normal bowel sounds, no organomegaly, no rigid, no scaphoid, soft, no splenomegaly, tenderness, no umbilical hernia, no ventral hernia - Integumentary Integumentary: no calor, no cellulitis, no cyanotic, no decreased turgor, no flushed, no jaundiced, normal, no normal turgor, pale, rash, no ulcer - Neurologic Neurologic: CNII-XII intact - Musculoskeletal Musculoskeletal: gait normal, generalized weakness, no strength equal bilaterally, no right sided weakness, no left sided weakness - Psychiatric Psychiatric: A&O x's 3, appropriate affect - Labs CBC & Chem 7: 06/13/16 07:07 06/13/16 07:07 Labs: Abnormal Lab Results - Last 24 Hours (Table) 06/13/16 06/13/16 Range/Units 07:07 07:07 RBC 2.90 L (3.80-5.40) m/uL Hgb 9.2 L (11.4-16.0) gm/dL Hct 28.8 L (34.0-46.0) % RDW 16.2 H (11.5-15.5) % Chloride 113 H (98-107) mmol/L Carbon Dioxide 19 L (22-30) mmol/L Glucose 106 H (74-99) mg/dL Calcium 8.1 L (8.4-10.2) mg/dL Assessment and Plan Plan: 1 sepsis and UTIwith metabolic encephalopathy: With failure to outpatient treatment . Continue Levaquin 2 acute kidney injury most likely ATN: Patient be hydrated take away any of for renal medication for now watch symptoms closely. 3 early pneumonitis: With current symptoms patient be started on Ventolin inhaler along with her HFA oxygen and antibiotic with Mucinex. 4 increase abdominal pain: Most likely combination of UTI with sepsis and severe attack ulcer disease continue lansoprazole continue treatment for UTI. 5 seizure: Has been doing well on Keppra 500 mg twice a day. 6 chronic history of anal cancer: Patient still seen oncology on regular basis. 7 hyperlipidemia: On Pravachol 80 mg daily. 8 hypertension: Remain on Tenormin 25 mg twice a day along with losartan 50 mg daily. 9 Chronic depression recurrent. Has been on Cymbalta 60 mg twice a day and BuSpar 15 mg twice a day. 10 change in bowel habits with diarrhea: Patient has been on Imodium almost on regular basis. Check C Diff toxin. 11 severe GERD/GI prophylaxis: Patient remain on lansoprazole continue medication. 12 DVT prophylaxis: Patient will be on knee-high CHRISTELLE hose and Venodyne boots. 13 chronic pain syndrome: Has been on Percocet was taking off fentanyl recently because of tremor. 14. Severe protein calorie malnutrition with BMI of 18,albumin 2.2. Continue supplements. 15. Possible need for home O2 for chronic hypoxic respiratory failure. Patient is being monitored. 16. Oral thrush. Patient started on nystatin. CODE STATUS: Full code. Discharge plan: Return home with [facility] Impression and plan of care have been directed as dictated by the signing physician. Louisa Edmond nurse practitioner acting as scribe for signing physician. Time with Patient: Greater than 30
[2016-06-13] MEDS: PRAVASTATIN SODIUM 80 MG TAB PO SCH (20:33)
[2016-06-14] MEDS: ALPRAZolam 0.25 MG TAB PO PRN ×2 (01:08→14:58)
[2016-06-14] MEDS: LEVOTHYROXINE 25 MCG TAB PO SCH (06:24)
[2016-06-14 07:32] VITALS: RESP 16
[2016-06-14] MEDS: HEPARIN SODIUM,PORCINE 5,000 UNIT/ML 1 ML VIAL SQ SCH (08:12)
[2016-06-14] MEDS: ATENOLOL 25 MG TAB PO SCH (08:12)
[2016-06-14] MEDS: LOSARTAN 50 MG TAB PO SCH (08:13)
[2016-06-14] MEDS: levETIRAcetam 500 MG TAB PO SCH (08:13)
[2016-06-14] MEDS: DULoxetine HCL 60 MG CAPSULE.DR PO SCH (08:13)
[2016-06-14] MEDS: BACLOFEN 10 MG TAB PO SCH ×2 (08:13→16:07)
[2016-06-14] MEDS: busPIRone HCl 5 MG TAB PO SCH (08:13)
[2016-06-14] MEDS: NYSTATIN 100,000 UNIT/ML SUSP 500,000 UNIT/5 ML CUP PO SCH ×3 (08:14→11:29)
[2016-06-14] MEDS: PANTOPRAZOLE 40 MG TABLET PO SCH (08:14)
[2016-06-14] MEDS: DEXTROSE 5%-0.45% NACL 1,000 ML IV SCH (09:14)
[2016-06-14] MEDS: LEVOFLOXACIN 250 MG TAB PO SCH (11:28)
[2016-06-14] MEDS: FOLIC ACID 1 MG TAB PO SCH (11:28)
[2016-06-14] MEDS: ACETAMINOPHEN TAB 325 MG TAB PO PRN (11:31)
[2016-06-14 15:03] VITALS: BP 138/79; PULSE 91; TEMP 97
--- NOTE | 2016-06-15 12:22 | P.DS ---
Providers Date of admission: 06/10/16 16:46 Expected date of discharge: 06/14/16 Attending physician: Juan Lorenzo Primary care physician: Carolyn Delaney [facility] Course: 71-year-old female one of Dr. Delaney's patient is known to have history of colorectal cancer recurrent UTI history of COPD chronic smoking chronic depression and hypothyroidism. Patient apparently was diagnosed with UTI sometime this past week Bactrim was called to the pharmacy patient is taking it yesterday she developed to have significant increase symptom with frequency urgency mild confusion and altered mental status along with worsening pain in the pelvic and lower abdominal area with more change of pinkish color urination with no clot at the time. With severe generalized fatigue and tiredness and low-grade temperature with her current symptom ended up coming to the emergency department [facility] where was seen and evaluated her urine was very positive culture was done at the time. Chest x-ray shows early sign of pneumonitis in the basal area specially in the right side. Patient also was tachypneic and tachycardic along with mild low-grade temperature. Was started on IV Levaquin updraft treatment patient be hospitalized with above problem. 06/11: Repeat hemoglobin 9.4, BUN 20 and creatinine 1.1. Urine culture has been finalized with no growth at 18 hours. 06/12: Patient was started on nystatin swish and swallow for thrush yesterday. IV fluids will be decreased to 75 mL per hour. Pulse ox currently 89% on 2 L and patient will be monitored for home O2 need. 06/13: Patient states that she is having frequent diarrhea and cramping. C diff toxin ordered. IV fluids increased to 100 cc/hr. Percocet resumed from home. 06/14: C. difficile toxin was negative. Patient is anxious to be discharged home. Patient will be discharged home today in stable condition. Discharge diagnoses: 1 sepsis and UTI with metabolic encephalopathy: With failure to outpatient treatment . 2 acute kidney injury most likely ATN 3 early pneumonitis 4 increase abdominal pain: Most likely combination of UTI with sepsis and severe attack ulcer disease 5 seizure 6 chronic history of anal cancer 7 hyperlipidemia 8 hypertension 9 Chronic depression recurrent 10 change in bowel habits with diarrhea 11 severe GERD 12 chronic pain syndrome 13. Severe protein calorie malnutrition with BMI of 18,albumin 2.2. 14. Oral thrush. . Discharge plan: Return home with [facility] Impression and plan of care have been directed as dictated by the signing physician. Louisa Edmond nurse practitioner acting as scribe for signing physician. Patient Condition at Discharge: Good Plan - Discharge Summary New Discharge Prescriptions: Levofloxacin [Levaquin] 250 mg PO DAILY@1200 #7 tab Nystatin 100,000 Unit/ml Susp [Mycostatin Oral Susp] 500,000 unit PO QID #120 ml Discharge Medication List ALPRAZolam [Xanax] 0.25 mg PO BID PRN 02/22/16 [History] Atenolol [Tenormin] 25 mg PO DAILY 02/22/16 [History] Baclofen [Lioresal] 10 mg PO TID 02/22/16 [History] DULoxetine HCL [Cymbalta] 60 mg PO BID 02/22/16 [History] Famotidine [Pepcid] 40 mg PO BID 02/22/16 [History] Fluticasone/Salmeterol [Advair Hfa 115-21 Mcg Inhaler] 1 puff INHALATION RT-HS 02/22/16 [History] Folic Acid 2 mg PO DAILY 02/22/16 [History] Lansoprazole 30 mg PO DAILY 02/22/16 [History] Levothyroxine Sodium [Synthroid] 25 mcg PO DAILY 02/22/16 [History] Losartan [Cozaar] 50 mg PO DAILY 02/22/16 [History] Pravastatin Sodium [Pravachol] 80 mg PO HS 02/22/16 [History] busPIRone HCL 15 mg PO DAILY 02/22/16 [History] levETIRAcetam [Keppra] 500 mg PO Q12HR 02/22/16 [History] oxyCODONE-APAP 10-325MG [Percocet 10-325 mg] 1 tab PO Q6HR PRN 02/22/16 [History ] Ergocalciferol [Vitamin D2 (DRISDOL)] 50,000 unit PO Q7D 06/10/16 [History] Levofloxacin [Levaquin] 250 mg PO DAILY@1200 #7 tab 06/14/16 [Rx] Nystatin 100,000 Unit/ml Susp [Mycostatin Oral Susp] 500,000 unit PO QID #120 ml 06/14/16 [Rx] Follow up Appointment(s)/Referral(s): [facility], [NON-STAFF] - 1 Week Carolyn Delaney MD [Primary Care Provider] - 1 Week (Patient needs to call Dr. Delaney 's office in the morning to schedule follow up appointment, the office is closed at time of discharge.) Patient Instructions/Handouts: Nystatin (By mouth), Levofloxacin (By mouth), How to Stop Smoking (DC), Urinary Tract Infection in Women (DC) Discharge Disposition: HOME WITH HOME HEALTH SERVICES
== END 2016-06-14 16:45 | disposition home health service (06) | DRG 871 ==
LOC: EC 08:32 → 6SEL 12:43 → UNDOADMIN 12:43 → 5MS5E 16:46
PROVIDERS: ADMIT Internal Medicine Geriatric Medicine; ATTEND Internal Medicine Geriatric Medicine
DX: A41.9 Sepsis, unspecified organism (principal); N17.0 Acute kidney failure with tubular necrosis; E43 Unspecified severe protein-calorie malnutrition; G93.41 Metabolic encephalopathy; J96.11 Chronic respiratory failure with hypoxia; J18.9 Pneumonia, unspecified organism; B37.0 Candidal stomatitis; R56.9 Unspecified convulsions; J44.0 Chronic obstructive pulmonary disease with (acute) lower respiratory infection; N39.0 Urinary tract infection, site not specified; Z68.1 Body mass index [BMI] 19.9 or less, adult; F33.9 Major depressive disorder, recurrent, unspecified; E86.0 Dehydration; G89.4 Chronic pain syndrome; R32 Unspecified urinary incontinence; R53.1 Weakness; R11.2 Nausea with vomiting, unspecified; R19.7 Diarrhea, unspecified; R25.1 Tremor, unspecified; R19.4 Change in bowel habit; E03.9 Hypothyroidism, unspecified; K21.9 Gastro-esophageal reflux disease without esophagitis; R10.30 Lower abdominal pain, unspecified; M54.9 Dorsalgia, unspecified; E78.5 Hyperlipidemia, unspecified; I10 Essential (primary) hypertension; F17.200 Nicotine dependence, unspecified, uncomplicated; Z87.440 Personal history of urinary (tract) infections; Z85.048 Personal history of other malignant neoplasm of rectum, rectosigmoid junction, and anus; Z88.0 Allergy status to penicillin; Z88.2 Allergy status to sulfonamides; Z88.8 Allergy status to other drugs, medicaments and biological substances; Z87.11 Personal history of peptic ulcer disease; Z79.891 Long term (current) use of opiate analgesic; Z79.51 Long term (current) use of inhaled steroids; Z79.899 Other long term (current) drug therapy; Z71.6 Tobacco abuse counseling
CPT/HCPCS: 36415; 71010; 74000; 80048; 80053; 80299; 81001; 82150; 83605; 83690; 84484; 85025; 85027; 85610; 85730; 87040; 87077; 87086; 87186; 87324; 93005; 94640; 96361; 96365; 96375; 99285

== ENCOUNTER 2017-08-29 14:07 | Emergency (ER) | payer MEDICARE, OTHER ==
--- NOTE | 2017-08-29 16:30 | ED ---
General Adult HPI - General Chief complaint: Back Pain/Injury Stated complaint: Left Leg Numbness Time Seen by Provider: 08/29/17 15:50 Source: patient, RN notes reviewed Mode of arrival: wheelchair Limitations: no limitations - History of Present Illness Initial comments: This a 72-year-old female presents emergency Department chief complaint of left leg, left hip pain. Patient states that she has a history of back surgery, left hip replacement. Patient states that she's had extensive issues with this. Approximately one month ago she fell on concrete. She is concerned about her prosthesis of her left hip. Patient states she normally takes Percocet. States it has not been helping. Patient does not involve bladder incontinence or retention. Patient denies any saddle anesthesias. She normally has some nerve issues with her left leg. Patient states that her back surgeon was out of [place] and she's had left hip replacement by Dr. Spivey. - Related Data Home Medications Medication Instructions Recorded Confirmed ALPRAZolam [Xanax] 0.25 mg PO BID PRN 02/22/16 08/29/17 Atenolol [Tenormin] 25 mg PO BID 02/22/16 08/29/17 Baclofen [Lioresal] 10 mg PO TID 02/22/16 08/29/17 DULoxetine HCL [Cymbalta] 60 mg PO BID 02/22/16 08/29/17 Famotidine [Pepcid] 40 mg PO BID 02/22/16 08/29/17 Fluticasone/Salmeterol [Advair Hfa 1 puff INHALATION RT-BID 02/22/16 08/29/17 115-21 Mcg Inhaler] Folic Acid 2 mg PO DAILY 02/22/16 08/29/17 Lansoprazole 30 mg PO DAILY 02/22/16 08/29/17 Levothyroxine Sodium [Synthroid] 25 mcg PO DAILY 02/22/16 08/29/17 Losartan [Cozaar] 50 mg PO DAILY 02/22/16 08/29/17 Pravastatin Sodium [Pravachol] 80 mg PO HS 02/22/16 08/29/17 busPIRone HCL 15 mg PO DAILY 02/22/16 08/29/17 levETIRAcetam [Keppra] 500 mg PO Q12HR 02/22/16 08/29/17 oxyCODONE-APAP 10-325MG [Percocet 1 tab PO Q8HR PRN 02/22/16 08/29/17 10-325 mg] Albuterol Sulfate [Proair Hfa] 2 puff INHALATION RT-Q6H PRN 08/29/17 08/29/17 Nicotine 21Mg/24Hr Patch [Habitrol] 1 patch TRANSDERM DAILY 08/29/17 08/29/17 Potassium Chloride ER [K-Dur 10] 10 meq PO BID 08/29/17 08/29/17 Allergies Allergy/AdvReac Type Severity Reaction Status Date / Time aspirin Allergy Unknown Verified 08/29/17 16:28 fluoxetine [From Prozac] Allergy Unknown Verified 08/29/17 16:28 ibuprofen [From Motrin] Allergy Unknown Verified 08/29/17 16:28 indomethacin [From Indocin] Allergy Unknown Verified 08/29/17 16:28 Iodinated Contrast- Oral and Allergy Unknown Verified 08/29/17 16:28 IV Dye Penicillins Allergy Anaphylaxis Verified 08/29/17 16:28 Sulfa (Sulfonamide AdvReac Nausea & Verified 08/29/17 16:28 Antibiotics) Vomiting & Diarrhea Review of Systems ROS Statement: Those systems with pertinent positive or pertinent negative responses have been documented in the HPI. ROS Other: All systems not noted in ROS Statement are negative. Past Medical History Past Medical History: Cancer, Hypertension Additional Past Medical History / Comment(s): anal ca 2012 History of Any Multi-Drug Resistant Organisms: None Reported Past Surgical History: Back Surgery, Orthopedic Surgery Additional Past Surgical History / Comment(s): hip knee surg Past Psychological History: No Psychological Hx Reported Smoking Status: Former smoker Past Alcohol Use History: None Reported Past Drug Use History: None Reported - Past Family History Mother Family Medical History: CVA/TIA General Exam Limitations: no limitations General appearance: alert, in no apparent distress Head exam: Present: atraumatic, normocephalic, normal inspection Respiratory exam: Present: normal lung sounds bilaterally. Absent: respiratory distress, wheezes, rales, rhonchi, stridor Cardiovascular Exam: Present: regular rate, normal rhythm, normal heart sounds. Absent: systolic murmur, diastolic murmur, rubs, gallop, clicks GI/Abdominal exam: Present: soft, normal bowel sounds. Absent: distended, tenderness, guarding, rebound, rigid Extremities exam: Present: other (Left hip there is tenderness with palpation, left proximal to mid femur. Neurovascular intact) Back exam: Present: full ROM, tenderness (Left lower), paraspinal tenderness. Absent: vertebral tenderness Neurological exam: Present: alert, oriented X3, CN II-XII intact, reflexes normal. Absent: motor sensory deficit Skin exam: Present: warm, dry, intact, normal color. Absent: rash Course Vital Signs 08/29/17 14:08 Temperature 98.0 F Pulse Rate 74 Respiratory 20 Rate Blood Pressure 103/51 O2 Sat by Pulse 98 Oximetry Medical Decision Making - Medical Decision Making This a 72-year-old female presented to ER with complaints of back and hip problems. Patient will follow-up with surgeon's, primary care physician. Patient has recurrent pain medications. Patient has no red flag symptoms. Disposition Clinical Impression: Fall, Lumbar radiculopathy Disposition: HOME SELF-CARE Condition: Stable Instructions: Lumbar Radiculopathy (ED) Additional Instructions: Please return to the Emergency Department if symptoms worsen or any other concerns. Is patient prescribed a controlled substance at d/c from ED?: No Referrals: Carolyn Delaney MD [Primary Care Provider] - 1-2 days Time of Disposition: 17:08
--- NOTE | 2017-08-29 16:31 | XR ---
AP pelvis HISTORY: Trauma and pain 1 month prior Frontal view of the pelvis correlated to prior pelvis 02/22/2016 Patient is status post bilateral hip arthroplasties. There is a scoliotic curvature to the lumbar spi ne. Degenerative disc changes are present. Spacing cages are present at L4-5. Degenerative disc her es noted in the visualized spine with probable laminectomies. Bone mineralization is mildly reduced. IMPRESSION: Findings are stable. No acute fracture or dislocation evident.
--- NOTE | 2017-08-29 16:33 | XR ---
Left femur HISTORY: Trauma and pain 2 views of the left femur submitted on 4 images Bone mineralization is reduced which may limit sensitivity. Patient is status post left hip arthropla sty. Alignment is maintained. Joint space loss present within the medial and lateral joint compartmen ts at the left knee. IMPRESSION: No fracture or dislocation is evident. Consider rheumatoid arthritis.
--- NOTE | 2017-08-29 16:38 | XR ---
Lumbosacral spine HISTORY: Pain, trauma one month prior 3 views of the lumbosacral spine correlated to prior exam 02/22/2016 There is no interval change. Scoliotic curvature is again noted. Postop changes are stable. Alignment , bone mineralization is unchanged. Bone mineralization is reduced which may limit sensitivity. Vacuu m phenomenon present at the intervertebral level with endplate sclerosis at multiple levels. Suspect sacralized L5. Impression: No acute fracture or subluxation.
[2017-08-29] MEDS ORDERED: MORPHINE SULFATE 4 MG/ML SYRINGE IM ONE (17:06)
[2017-08-29 17:35] VITALS: BP 103/59; PULSE 64; RESP 16; TEMP 97.8
== END 2017-08-29 17:42 | disposition home or self-care (01) ==
LOC: EC 14:07
DX: M54.16 Radiculopathy, lumbar region (principal); I10 Essential (primary) hypertension; Z87.891 Personal history of nicotine dependence; Z79.51 Long term (current) use of inhaled steroids; Z79.899 Other long term (current) drug therapy; Z88.0 Allergy status to penicillin; Z88.2 Allergy status to sulfonamides; Z88.6 Allergy status to analgesic agent; Z88.8 Allergy status to other drugs, medicaments and biological substances; Z91.041 Radiographic dye allergy status; Z96.642 Presence of left artificial hip joint; Z98.890 Other specified postprocedural states; W19.XXXA Unspecified fall, initial encounter
CPT/HCPCS: 99284; 72100; 72170; 73552; J2270

== ENCOUNTER 2017-12-07 11:43 | Inpatient (IN) | payer MEDICARE, OTHER ==
[2017-12-07] MEDS ORDERED: SODIUM CHLORIDE 0.9% 500 ML IV STA (11:48)
[2017-12-07] MEDS ORDERED: SODIUM CHLORIDE 0.9% 1,000 ML IV STA ×2 (11:48→18:40)
--- NOTE | 2017-12-07 11:54 | ED ---
General Adult HPI - General Source: patient, EMS, RN notes reviewed, old records reviewed <Michael Matute - Last Filed: 12/07/17 16:57> <Michael Buchanan - Last Filed: 12/07/17 18:24> - General Stated complaint: SANDRITA Time Seen by Provider: 12/07/17 11:44 - History of Present Illness Initial comments: 72-year-old female presenting for evaluation of generalized weakness. Patient was recently admitted to outside hospital and subsequently transferred to the [facility]. She was discharged from the [facility] on which was 2 days ago. She has been home with family since that time. EMS was initially called for difficult to breathing and hypoxia. According to in all nursing there was hypoxia in the 80s. EMS reports normal oxygenation on room air throughout transport. Patient was noted to have low blood pressure by EMS in the 80s systolic. Patient denies fever or chills. Denies vomiting or diarrhea. She states she has been eating and drinking normally. She does confess to generalized weakness. No focal weakness or numbness. (Michael Matute) - Related Data Home Medications Medication Instructions Recorded Confirmed Atenolol [Tenormin] 25 mg PO BID 02/22/16 12/07/17 Baclofen [Lioresal] 10 mg PO TID 02/22/16 12/07/17 DULoxetine HCL [Cymbalta] 60 mg PO BID 02/22/16 12/07/17 Famotidine [Pepcid] 40 mg PO BID 02/22/16 12/07/17 Fluticasone/Salmeterol [Advair Hfa 2 puff INHALATION RT-BID 02/22/16 12/07/17 115-21 Mcg Inhaler] Folic Acid 2 mg PO DAILY 02/22/16 12/07/17 Lansoprazole 30 mg PO DAILY 02/22/16 12/07/17 Levothyroxine Sodium [Synthroid] 25 mcg PO DAILY 02/22/16 12/07/17 Losartan [Cozaar] 50 mg PO DAILY 02/22/16 12/07/17 Pravastatin Sodium [Pravachol] 80 mg PO HS 02/22/16 12/07/17 busPIRone HCL 15 mg PO BID 02/22/16 12/07/17 levETIRAcetam [Keppra] 500 mg PO Q12HR 02/22/16 12/07/17 oxyCODONE-APAP 10-325MG [Percocet 1 tab PO Q8HR PRN 02/22/16 12/07/17 10-325 mg] Potassium Chloride ER [K-Dur 10] 10 meq PO BID 08/29/17 12/07/17 Albuterol Inhaler [Ventolin Hfa 2 puff INHALATION RT-Q6H PRN 12/07/17 12/07/17 Inhaler] Clopidogrel [Plavix] 75 mg PO DAILY 12/07/17 12/07/17 Diltiazem Cd [Cardizem Cd] 180 mg PO DAILY 12/07/17 12/07/17 Metoprolol Tartrate [Lopressor] 25 mg PO TID 12/07/17 12/07/17 Allergies Allergy/AdvReac Type Severity Reaction Status Date / Time aspirin Allergy Unknown Verified 09/02/17 10:54 fluoxetine [From Prozac] Allergy Unknown Verified 09/02/17 10:54 ibuprofen [From Motrin] Allergy Unknown Verified 09/02/17 10:54 indomethacin [From Indocin] Allergy Unknown Verified 09/02/17 10:54 Iodinated Contrast- Oral and Allergy Unknown Verified 09/02/17 10:54 IV Dye Penicillins Allergy Anaphylaxis Verified 09/02/17 10:54 Sulfa (Sulfonamide AdvReac Nausea & Verified 09/02/17 10:54 Antibiotics) Vomiting & Diarrhea Review of Systems ROS Other: All systems not noted in ROS Statement are negative. <Michael Matute - Last Filed: 12/07/17 16:57> ROS Other: All systems not noted in ROS Statement are negative. <Michael Buchanan - Last Filed: 12/07/17 18:24> ROS Statement: Those systems with pertinent positive or pertinent negative responses have been documented in the HPI. Past Medical History Past Medical History: Cancer, Hypertension Additional Past Medical History / Comment(s): anal ca 2012 History of Any Multi-Drug Resistant Organisms: None Reported Past Surgical History: Back Surgery, Orthopedic Surgery Additional Past Surgical History / Comment(s): hip knee surg Smoking Status: Former smoker - Past Family History Mother Family Medical History: CVA/TIA <Michael Matute - Last Filed: 12/07/17 16:57> General Exam General appearance: lethargic Head exam: Present: atraumatic, normocephalic Eye exam: Present: normal appearance, PERRL ENT exam: Present: mucous membranes dry Neck exam: Present: normal inspection. Absent: tenderness, meningismus Respiratory exam: Present: decreased breath sounds. Absent: respiratory distress Cardiovascular Exam: Present: regular rate, normal rhythm GI/Abdominal exam: Present: soft. Absent: distended, tenderness, guarding Extremities exam: Present: normal inspection, normal capillary refill. Absent: pedal edema Neurological exam: Present: alert, oriented X3, CN II-XII intact. Absent: motor sensory deficit Psychiatric exam: Present: normal affect, normal mood Skin exam: Present: warm, dry, intact. Absent: cyanosis, diaphoretic <Michael Matute - Last Filed: 12/07/17 16:57> Course <Michael Matute - Last Filed: 12/07/17 16:57> <Michael Buchanan - Last Filed: 12/07/17 18:24> Vital Signs 12/07/17 12/07/17 12/07/17 11:48 13:53 14:16 Temperature 97.1 F L Pulse Rate 71 57 L 57 L Respiratory 17 17 17 Rate Blood Pressure 82/49 78/48 74/46 O2 Sat by Pulse 89 L 100 98 Oximetry 12/07/17 12/07/17 12/07/17 15:55 17:05 17:24 Temperature Pulse Rate 65 55 L 58 L Respiratory 17 Rate Blood Pressure 99/53 O2 Sat by Pulse 99 95 98 Oximetry - Reevaluation(s) Reevaluation #1: 12/07/17 [address] Lorenzo, was familiar with this patient. Patient has had multiple hospital admissions, multiple ER visits. She has been admitted to the [facility] and discharged secondary to noncompliance. She is bedbound at baseline. (Michael Matute) Reevaluation #2: 12/07/17 1700 Patient care is signed out to Dr. Buchanan at shift change awaiting repeat troponin. (Michael Matute) EKG Findings - EKG Comments: EKG Findings:: EKG: Sinus rhythm: T-wave inversion in inferior leads as well as precordial leads. No ST segment changes. Rate of 61, OK interval 158, QRS duration 64, QTC 473, no recent for comparison. <Michael Matute N - Last Filed: 12/07/17 16:57> Medical Decision Making - Lab Data Result diagrams: 12/07/17 12:25 12/07/17 12:25 <Michael Matute - Last Filed: 12/07/17 16:57> - Lab Data Result diagrams: 12/07/17 12:25 12/07/17 12:25 <Michael Buchanan - Last Filed: 12/07/17 18:24> - Medical Decision Making Patient was endorsed me by Dr. Matute at the end of his shift. Pending repeat troponin. The repeat troponin is trending down however the patient was having episodes of hypotension and dyspnea. Discussion with the family was called prior to my taking endorsed to patient will be admitted for ACS (Michael Buchanan) - Lab Data Lab Results 12/07/17 12/07/17 12/07/17 Range/Units 12:25 12:25 12:25 WBC 6.6 (3.8-10.6) k/uL RBC 3.41 L (3.80-5.40) m/uL Hgb 10.3 L (11.4-16.0) gm/dL Hct 33.8 L (34.0-46.0) % MCV 99.1 (80.0-100.0) fL MCH 30.3 (25.0-35.0) pg MCHC 30.5 L (31.0-37.0) g/dL RDW 17.3 H (11.5-15.5) % Plt Count 313 D (150-450) k/uL Neutrophils % (Manual) 80 % Lymphocytes % (Manual) 5 % Monocytes % (Manual) 15 % Neutrophils # (Manual) 5.28 (1.3-7.7) k/uL Lymphocytes # (Manual) 0.33 L (1.0-4.8) k/uL Monocytes # (Manual) 0.99 (0-1.0) k/uL Nucleated RBCs 0 (0-0) /100 WBC Manual Slide Review Performed Hypochromasia Slight Anisocytosis Slight Macrocytosis Slight PT (9.0-12.0) sec INR (<1.2) APTT (22.0-30.0) sec Sodium 138 (137-145) mmol/L Potassium 5.2 H (3.5-5.1) mmol/L Chloride 103 (98-107) mmol/L Carbon Dioxide 25 (22-30) mmol/L Anion Gap 10 mmol/L BUN 36 H (7-17) mg/dL Creatinine 1.80 H (0.52-1.04) mg/dL Est GFR (CKD-EPI)AfAm 32 (>60 ml/min/1.73 sqM) Est GFR (CKD-EPI)NonAf 28 (>60 ml/min/1.73 sqM) Glucose 118 H (74-99) mg/dL Plasma Lactic Acid Juan (0.7-2.0) mmol/L Calcium 9.0 (8.4-10.2) mg/dL Magnesium 2.7 H (1.6-2.3) mg/dL Total Bilirubin 0.4 (0.2-1.3) mg/dL AST 46 H (14-36) U/L ALT 103 H (9-52) U/L Alkaline Phosphatase 94 (38-126) U/L Total Creatine Kinase 31 (30-135) U/L CK-MB (CK-2) 1.6 (0.0-2.4) ng/mL CK-MB (CK-2) Rel Index 5.2 Troponin I 0.057 H* (0.000-0.034) ng/mL Total Protein 6.2 L (6.3-8.2) g/dL Albumin 3.6 (3.5-5.0) g/dL Urine Color Urine Appearance (Clear) Urine pH (5.0-8.0) Ur Specific [place] (1.001-1.035) Urine Protein (Negative) Urine Glucose (UA) (Negative) Urine Ketones (Negative) Urine Blood (Negative) Urine Nitrite (Negative) Urine Bilirubin (Negative) Urine Urobilinogen (<2.0) mg/dL Ur Leukocyte Esterase (Negative) Urine WBC (0-5) /hpf Urine Bacteria (None) /hpf 12/07/17 12/07/17 12/07/17 Range/Units 12:25 12:25 15:33 WBC (3.8-10.6) k/uL RBC (3.80-5.40) m/uL Hgb (11.4-16.0) gm/dL Hct (34.0-46.0) % MCV (80.0-100.0) fL MCH (25.0-35.0) pg MCHC (31.0-37.0) g/dL RDW (11.5-15.5) % Plt Count (150-450) k/uL Neutrophils % (Manual) % Lymphocytes % (Manual) % Monocytes % (Manual) % Neutrophils # (Manual) (1.3-7.7) k/uL Lymphocytes # (Manual) (1.0-4.8) k/uL Monocytes # (Manual) (0-1.0) k/uL Nucleated RBCs (0-0) /100 WBC Manual Slide Review Hypochromasia Anisocytosis Macrocytosis PT 9.6 (9.0-12.0) sec INR 1.0 (<1.2) APTT 22.1 (22.0-30.0) sec Sodium (137-145) mmol/L Potassium (3.5-5.1) mmol/L Chloride (98-107) mmol/L Carbon Dioxide (22-30) mmol/L Anion Gap mmol/L BUN (7-17) mg/dL Creatinine (0.52-1.04) mg/dL Est GFR (CKD-EPI)AfAm (>60 ml/min/1.73 sqM) Est GFR (CKD-EPI)NonAf (>60 ml/min/1.73 sqM) Glucose (74-99) mg/dL Plasma Lactic Acid Juan 1.3 (0.7-2.0) mmol/L Calcium (8.4-10.2) mg/dL Magnesium (1.6-2.3) mg/dL Total Bilirubin (0.2-1.3) mg/dL AST (14-36) U/L ALT (9-52) U/L Alkaline Phosphatase (38-126) U/L Total Creatine Kinase (30-135) U/L CK-MB (CK-2) (0.0-2.4) ng/mL CK-MB (CK-2) Rel Index Troponin I (0.000-0.034) ng/mL Total Protein (6.3-8.2) g/dL Albumin (3.5-5.0) g/dL Urine Color Yellow Urine Appearance Clear (Clear) Urine pH 5.5 (5.0-8.0) Ur Specific [place] 1.012 (1.001-1.035) Urine Protein Trace H (Negative) Urine Glucose (UA) Negative (Negative) Urine Ketones Negative (Negative) Urine Blood Negative (Negative) Urine Nitrite Negative (Negative) Urine Bilirubin Negative (Negative) Urine Urobilinogen <2.0 (<2.0) mg/dL Ur Leukocyte Esterase Moderate H (Negative) Urine WBC 47 H (0-5) /hpf Urine Bacteria Few H (None) /hpf 12/07/17 Range/Units 17:11 WBC (3.8-10.6) k/uL RBC (3.80-5.40) m/uL Hgb (11.4-16.0) gm/dL Hct (34.0-46.0) % MCV (80.0-100.0) fL MCH (25.0-35.0) pg MCHC (31.0-37.0) g/dL RDW (11.5-15.5) % Plt Count (150-450) k/uL Neutrophils % (Manual) % Lymphocytes % (Manual) % Monocytes % (Manual) % Neutrophils # (Manual) (1.3-7.7) k/uL Lymphocytes # (Manual) (1.0-4.8) k/uL Monocytes # (Manual) (0-1.0) k/uL Nucleated RBCs (0-0) /100 WBC Manual Slide Review Hypochromasia Anisocytosis Macrocytosis PT (9.0-12.0) sec INR (<1.2) APTT (22.0-30.0) sec Sodium (137-145) mmol/L Potassium (3.5-5.1) mmol/L Chloride (98-107) mmol/L Carbon Dioxide (22-30) mmol/L Anion Gap mmol/L BUN (7-17) mg/dL Creatinine (0.52-1.04) mg/dL Est GFR (CKD-EPI)AfAm (>60 ml/min/1.73 sqM) Est GFR (CKD-EPI)NonAf (>60 ml/min/1.73 sqM) Glucose (74-99) mg/dL Plasma Lactic Acid Juan (0.7-2.0) mmol/L Calcium (8.4-10.2) mg/dL Magnesium (1.6-2.3) mg/dL Total Bilirubin (0.2-1.3) mg/dL AST (14-36) U/L ALT (9-52) U/L Alkaline Phosphatase (38-126) U/L Total Creatine Kinase (30-135) U/L CK-MB (CK-2) (0.0-2.4) ng/mL CK-MB (CK-2) Rel Index Troponin I 0.037 H* (0.000-0.034) ng/mL Total Protein (6.3-8.2) g/dL Albumin (3.5-5.0) g/dL Urine Color Urine Appearance (Clear) Urine pH (5.0-8.0) Ur Specific [place] (1.001-1.035) Urine Protein (Negative) Urine Glucose (UA) (Negative) Urine Ketones (Negative) Urine Blood (Negative) Urine Nitrite (Negative) Urine Bilirubin (Negative) Urine Urobilinogen (<2.0) mg/dL Ur Leukocyte Esterase (Negative) Urine WBC (0-5) /hpf Urine Bacteria (None) /hpf Disposition <Michael Matute - Last Filed: 12/07/17 16:57> <Michael Buchanan - Last Filed: 12/07/17 18:24> Clinical Impression: Acute coronary syndrome Disposition: ADMITTED IP TO THIS HOSP Condition: Stable Referrals: Carolyn Delaney MD [Primary Care Provider] - 1-2 days
[2017-12-07 12:55] LABS: Partial Thromboplastin Time 22.1 sec (22.0-30.0); Prothrombin Time 9.6 sec (9.0-12.0)
[2017-12-07 12:58] LABS: Albumin 3.6 g/dL (3.5-5.0); Magnesium 2.7 mg/dL (1.6-2.3); Potassium 5.2 mmol/L (3.5-5.1); Total Bilirubin 0.4 mg/dL (0.2-1.3); Total Protein 6.2 g/dL (6.3-8.2)
[2017-12-07 12:59] LABS: Anisocytosis Slight; HCT 33.8 % (34.0-46.0); HGB 10.3 gm/dL (11.4-16.0); Hypochromasia Slight; MCH 30.3 pg (25.0-35.0); MCHC 30.5 g/dL (31.0-37.0); MCV 99.1 fL (80.0-100.0); Macrocytosis Slight; Mean Platelet Volume 8.8; RBC 3.41 m/uL (3.80-5.40); RDW 17.3 % (11.5-15.5); WBC 6.6 k/uL (3.8-10.6)
[2017-12-07 13:02] LABS: Platelet Count 313 k/uL (150-450)
[2017-12-07] MEDS ORDERED: ALPRAZolam 0.25 MG TAB PO STA (13:23)
[2017-12-07] MEDS ORDERED: oxyCODONE-APAP 10-325MG 1 EACH TAB PO ONE (13:24)
[2017-12-07 13:25] LABS: Lymphocytes # (M) 0.33 k/uL (1.0-4.8); Monocytes # (M) 0.99 k/uL (0-1.0); Neutrophils # (M) 5.28 k/uL (1.3-7.7); Neutrophils % (M) 80 %; Nucleated Red Blood Cells 0 /100 WBC (0-0); Total Cells Counted 100
[2017-12-07 13:26] LABS: Creatine Kinase MB 1.6 ng/mL (0.0-2.4)
[2017-12-07 13:27] LABS: Troponin I 0.057 ng/mL (0.000-0.034)
--- NOTE | 2017-12-07 13:42 | XR ---
EXAMINATION TYPE: XR chest 2V DATE OF EXAM: 12/07/2017 HISTORY: Weakness. REFERENCE: NONE. FINDINGS: The lungs are clear. Pleural spaces are clear. The heart is not enlarged. IMPRESSION: NO ACTIVE CARDIOTHORACIC ABNORMALITY.
[2017-12-07] MEDS ORDERED: SODIUM CHLORIDE 0.9% 500 ML IV ONE (14:10)
[2017-12-07 16:01] LABS: Appearance,Urine Clear (Clear); Bacteria,Urine Few /hpf; Bilirubin,Urine Negative (Negative); Blood,Urine Negative (Negative); Color,Urine Yellow; Glucose,Urine (UA) Negative (Negative); Ketones,Urine Negative (Negative); Leukocyte Esterase,Urine Moderate (Negative); Nitrite,Urine Negative (Negative); PH, Urine 5.5 (5.0-8.0); Protein,Urine Trace (Negative); Specific Gravity,Urine 1.012 (1.001-1.035); Urobilinogen,Urine <2.0 mg/dL (<2.0); WBC,Urine 47 /hpf (0-5)
[2017-12-07] MEDS ORDERED: HEPARIN SODIUM,PORCINE 5,000 UNIT/ML 1 ML VIAL IV ONE (18:24)
[2017-12-07] MEDS ORDERED: NITROGLYCERIN SL TABS 0.4 MG TAB SUBLINGUAL PRN (18:24)
[2017-12-07] MEDS ORDERED: HEPARIN SOD,PORK IN 0.45% NACL 25,000 UNIT in 0.45% NACL 1 500ML.BAG IV SCH (18:30)
[2017-12-07] MEDS: oxyCODONE-APAP 10-325MG 1 EACH TAB PO PRN (20:55)
[2017-12-07] MEDS: PRAVASTATIN SODIUM 80 MG TAB PO SCH (22:35)
[2017-12-07] MEDS: POTASSIUM CHLORIDE ER 10 MEQ TAB.ER.PRT PO SCH (22:35)
[2017-12-07] MEDS: DULoxetine HCL 60 MG CAPSULE.DR PO SCH (22:35)
[2017-12-07] MEDS: FAMOTIDINE 20 MG TAB PO SCH (22:35)
[2017-12-07] MEDS: busPIRone HCl 5 MG TAB PO SCH (22:35)
[2017-12-07] MEDS: levETIRAcetam 500 MG TAB PO SCH (22:35)
[2017-12-07] MEDS: METOPROLOL TARTRATE 25 MG TAB PO SCH (23:24)
[2017-12-07] MEDS: ATENOLOL 25 MG TAB PO SCH (23:24)
[2017-12-08 00:40] LABS: Creatine Kinase MB 1.7 ng/mL (0.0-2.4); Troponin I 0.034 ng/mL (0.000-0.034)
[2017-12-08] MEDS: ACETAMINOPHEN TAB 500 MG TAB PO PRN (06:19)
[2017-12-08 06:44] LABS: Calcium 7.2 mg/dL (8.4-10.2)
[2017-12-08] MEDS: LEVOTHYROXINE 25 MCG TAB PO SCH (06:49)
[2017-12-08] MEDS: SODIUM CHLORIDE 0.9% 1,000 ML IV SCH ×2 (06:50→20:56)
[2017-12-08] MEDS ORDERED: HEPARIN SODIUM,PORCINE 5,000 UNIT/ML 1 ML VIAL IV PRN (06:53)
[2017-12-08 06:59] LABS: Creatine Kinase MB 1.8 ng/mL (0.0-2.4); Troponin I 0.03 ng/mL (0.000-0.034)
[2017-12-08 07:12] LABS: Anisocytosis Slight; HCT 24.9 % (34.0-46.0); Hypochromasia Marked; MCH 31.4 pg (25.0-35.0); MCV 101.2 fL (80.0-100.0); Macrocytosis Slight; Mean Platelet Volume 8.8; Platelet Count 270 k/uL (150-450); RBC 2.46 m/uL (3.80-5.40); RDW 16.8 % (11.5-15.5); WBC 4.2 k/uL (3.8-10.6)
[2017-12-08 07:18] LABS: HGB 7.7 gm/dL (11.4-16.0)
[2017-12-08] MEDS: ALBUTEROL NEBULIZED 2.5 MG/3 ML INHALATION PRN ×2 (07:23→20:07)
[2017-12-08] MEDS: SYMBICORT 160-4.5 MCG INHALER INHALATION SCH ×2 (07:23→20:07)
[2017-12-08 08:33] LABS: Eosinophils # (M) 0.04 k/uL (0-0.7); Lymphocytes # (M) 0.29 k/uL (1.0-4.8); Monocytes # (M) 0.59 k/uL (0-1.0); Neutrophils # (M) 3.28 k/uL (1.3-7.7); Neutrophils % (M) 78 %; Nucleated Red Blood Cells 0 /100 WBC (0-0); Total Cells Counted 100
[2017-12-08 08:34] LABS: Large Platelets Present
[2017-12-08] MEDS: METOPROLOL TARTRATE 25 MG TAB PO SCH ×3 (08:39→22:28)
[2017-12-08] MEDS: ATENOLOL 25 MG TAB PO SCH ×2 (08:39→21:19)
[2017-12-08] MEDS: DILTIAZEM CD 180 MG CAP.ER.24H PO SCH (08:39)
[2017-12-08] MEDS: LOSARTAN 50 MG TAB PO SCH (08:39)
[2017-12-08] MEDS: busPIRone HCl 5 MG TAB PO SCH ×2 (08:45→21:19)
[2017-12-08] MEDS: FAMOTIDINE 20 MG TAB PO SCH ×2 (08:46→21:19)
[2017-12-08] MEDS: CLOPIDOGREL 75 MG TAB PO SCH (08:46)
[2017-12-08] MEDS: DULoxetine HCL 60 MG CAPSULE.DR PO SCH ×2 (08:46→21:19)
[2017-12-08] MEDS: levETIRAcetam 500 MG TAB PO SCH ×2 (08:46→21:19)
[2017-12-08] MEDS: POTASSIUM CHLORIDE ER 10 MEQ TAB.ER.PRT PO SCH ×2 (08:47→21:00)
[2017-12-08] MEDS: PANTOPRAZOLE 40 MG TABLET PO SCH (08:47)
[2017-12-08] MEDS: oxyCODONE-APAP 10-325MG 1 EACH TAB PO PRN ×3 (09:02→22:33)
--- NOTE | 2017-12-08 09:33 | P.HPIM ---
History of Present Illness H&P Date: 12/08/17 Chief Complaint: Possible acute coronary syndrome, severe generalized weakness, recurrent se 72-year-old female one of Dr. Delaney's patient is known to have history of colorectal cancer, recurrent UTI, COPD from chronic smoking, depression, hypothyroidism who was hospitalized at [facility] twice in the last 4 weeks and was transferred to [facility] and apparently refused to do physical therapy and rehab was discharged home sometimes last week ended up at the emergency department at [facility] the same night no major finding was discharged home to return to the emergency room one more time at [facility] with similar circumstances with no finding again for the second time the patient ended up being discharged home from the ER and agree to be taking care of by family. Patient repeatedly keeps claiming that her family are not giving her medication once taking care of her and such despite the failure to maintain and sustain in a fpc rehab and allow social media manager to help her for longer term planning, repeatedly going home with family to failed maintain her status at home and failed her care at home as well. She returned to the emergency department at [facility] this time after found by the visiting nurse to have significant hypotension not feeling well and having mild hypoxia. Ended up coming to the emergency department no family found with her [facility] showed mildly elevated troponin, patient is debilitated bedridden had mild change of mental status with elevated troponin the current condition patient was hospitalized. Troponin was elevated, kidney function slightly bit worse, patient had mild anemia, and I wouldn't be surprised patient had sepsis as well this time. Also found to have stage IV decub in the sacral area measure 0.51 cm with depth of 1 cm with significant drainage. [facility]: To notify the family that possible blood culture was done through the last visit to the emergency room last few days but no information of what kind of germ was found that time. Review of Systems CONSTITUTIONAL: Very thin, look in mild respiratory distress, mildly confused and able to answer most for question some time if she takes her time. EYES: No icterus sclerae, no conjunctivitis. EARS, NOSE, MOUTH, THROAT, and FACE: No sore throat, lymphadenopathy, carotid bruits or deformity. RESPIRATORY: The second shortness of breath with mild cough and wheezes.. CARDIOVASCULAR: No CP, Palpitation, PND, Orthopnea, or angina. GASTROINTESTINAL: Positive abdominal pain with mild nausea vomiting no diarrhea no bloody stool or black stool so far. GENITOURINARY: Has incontinence with burning discomfort. INTEGUMENT/BREAST: Significant East infection in the groin area. HEMATOLOGIC/LYMPHATIC: Negative for bleed or purpura. MUSCULOSKELTAL: Negative for Myalgia or arthralgia. NEURLOGICAL: History of seizure with mild change mental status with decreased mobility and mild tremor. BEHAVIORAL/PSYCH: Chronic depression. ENDOCRINE: Negative. Past Medical History Past Medical History: Cancer, CVA/TIA, Hypertension, Rheumatoid Arthritis (RA), Thyroid Disorder Additional Past Medical History / Comment(s): anal ca 2011; pt stated that she had a stroke back in 2001, stent to the legs History of Any Multi-Drug Resistant Organisms: None Reported Past Surgical History: Back Surgery, Hysterectomy, Orthopedic Surgery Additional Past Surgical History / Comment(s): hip and right knee surg Past Anesthesia/Blood Transfusion Reactions: No Reported Reaction Past Psychological History: Panic Disorder Smoking Status: Former smoker Past Alcohol Use History: None Reported Past Drug Use History: None Reported - Past Family History Mother Family Medical History: CVA/TIA Father Additional Family Medical History / Comment(s): father of blot clots 6months after cabg Medications and Allergies Home Medications Medication Instructions Recorded Confirmed Type Atenolol [Tenormin] 25 mg PO BID 02/22/16 12/07/17 History Baclofen [Lioresal] 10 mg PO TID 02/22/16 12/07/17 History DULoxetine HCL [Cymbalta] 60 mg PO BID 02/22/16 12/07/17 History Famotidine [Pepcid] 40 mg PO BID 02/22/16 12/07/17 History Fluticasone/Salmeterol [Advair Hfa 2 puff INHALATION RT-BID 02/22/16 12/07/17 History 115-21 Mcg Inhaler] Folic Acid 2 mg PO DAILY 02/22/16 12/07/17 History Lansoprazole 30 mg PO DAILY 02/22/16 12/07/17 History Levothyroxine Sodium [Synthroid] 25 mcg PO DAILY 02/22/16 12/07/17 History Losartan [Cozaar] 50 mg PO DAILY 02/22/16 12/07/17 History Pravastatin Sodium [Pravachol] 80 mg PO HS 02/22/16 12/07/17 History busPIRone HCL 15 mg PO BID 02/22/16 12/07/17 History levETIRAcetam [Keppra] 500 mg PO Q12HR 02/22/16 12/07/17 History oxyCODONE-APAP 10-325MG [Percocet 1 tab PO Q8HR PRN 02/22/16 12/07/17 History 10-325 mg] Potassium Chloride ER [K-Dur 10] 10 meq PO BID 08/29/17 12/07/17 History Albuterol Inhaler [Ventolin Hfa 2 puff INHALATION RT-Q6H PRN 12/07/17 12/07/17 History Inhaler] Clopidogrel [Plavix] 75 mg PO DAILY 12/07/17 12/07/17 History Diltiazem Cd [Cardizem Cd] 180 mg PO DAILY 12/07/17 12/07/17 History Metoprolol Tartrate [Lopressor] 25 mg PO TID 12/07/17 12/07/17 History Allergies Allergy/AdvReac Type Severity Reaction Status Date / Time aspirin Allergy Unknown Verified 09/02/17 10:54 fluoxetine [From Prozac] Allergy Unknown Verified 09/02/17 10:54 ibuprofen [From Motrin] Allergy Unknown Verified 09/02/17 10:54 indomethacin [From Indocin] Allergy Unknown Verified 09/02/17 10:54 Iodinated Contrast- Oral and Allergy Unknown Verified 09/02/17 10:54 IV Dye Penicillins Allergy Anaphylaxis Verified 09/02/17 10:54 Sulfa (Sulfonamide AdvReac Nausea & Verified 09/02/17 10:54 Antibiotics) Vomiting & Diarrhea Physical Exam Vitals: Vital Signs Temp Pulse Pulse Resp BP BP Pulse Ox 12/08/17 07:38 64 12/08/17 07:23 60 12/08/17 04:00 97 F L 60 17 93/50 96 12/07/17 23:50 60 18 12/07/17 23:45 96.6 F L 60 18 92/50 95 12/07/17 21:07 97.4 F L 12/07/17 20:50 96.6 F L 64 17 97/52 95 12/07/17 20:48 64 17 96/50 97 12/07/17 19:44 59 L 18 96/54 99 12/07/17 18:54 91 17 82/49 95 12/07/17 17:24 58 L 98 12/07/17 17:05 55 L 95 12/07/17 15:55 65 17 99/53 99 12/07/17 14:16 57 L 17 74/46 98 12/07/17 13:53 57 L 17 78/48 100 12/07/17 11:48 97.1 F L 71 17 82/49 89 L Intake and Output 12/07/17 12/08/17 12/08/17 22:59 06:59 14:59 Intake Total 285.090 0854 Output Total 900 Balance -174.009 8414 Intake: Intake, IV Titration 775.897 0211 Amount Heparin Sod,Pork in 0.45% 134.587 NaCl 25,000 unit In 0.45 % NaCl 1 500ml.bag @ 12 UNITS/KG/HR 11.2 mls/hr IV .Q24H ISAEL Rx#: [id number] Sodium Chloride 0.9% 1, 1500 000 ml @ 100 mls/hr IV . Q10H ISAEL Rx#:[id number] Output: Urine 900 Other: Voiding Method Bedside Commode # Bowel Movements 1 1 Weight 47 kg 49.2 kg General Appearance: Alert, slightly confused in mild respiratory distress Neck HEENT: Supple, no lymphadenopathy, no thyroid enlargement, no carotid bruits. Lungs: Decreased breath sound bilaterally fine rhonchi mild expiratory wheezes. Chest Wall: Decreased expansion with deep inspiration bilaterally worse on the left on the right side with mild rhonchi and positive expiratory wheezes.. Heart: Regular rate and rhythm, S1, S2 normal, no murmur, rub or gallop. Back: Decubitus in the sacral area measuring 11 with depth of 1 cm looks like stage IV sacral area. Abdomen: Soft slight discomfort in the epigastric area with significant yeast infection in the lower part extending into the groin area bilaterally. Extremities: Extremities normal, atraumatic, no cyanosis or edema. Pulses: 2+ and symmetric. Skin: Skin color, texture, tugor normal, no rashes or lesions. Neurologic: Alert slightly confused moving all her 4 extremity has generalized weakness no focal deficit also had mild resting tremor. Results CBC & Chem 7: 12/08/17 06:02 12/08/17 06:02 Labs: Abnormal Lab Results - Last 24 Hours (Table) 12/07/17 12/07/17 12/07/17 Range/Units 12:25 12:25 12:25 RBC 3.41 L (3.80-5.40) m/uL Hgb 10.3 L (11.4-16.0) gm/dL Hct 33.8 L (34.0-46.0) % MCV (80.0-100.0) fL MCHC 30.5 L (31.0-37.0) g/dL RDW 17.3 H (11.5-15.5) % Lymphocytes # (Manual) 0.33 L (1.0-4.8) k/uL APTT (22.0-30.0) sec Potassium 5.2 H (3.5-5.1) mmol/L Chloride (98-107) mmol/L Carbon Dioxide (22-30) mmol/L BUN 36 H (7-17) mg/dL Creatinine 1.80 H (0.52-1.04) mg/dL Glucose 118 H (74-99) mg/dL Calcium (8.4-10.2) mg/dL Magnesium 2.7 H (1.6-2.3) mg/dL AST 46 H (14-36) U/L ALT 103 H (9-52) U/L Troponin I 0.057 H* (0.000-0.034) ng/mL Total Protein 6.2 L (6.3-8.2) g/dL Urine Protein (Negative) Ur Leukocyte Esterase (Negative) Urine WBC (0-5) /hpf Urine Bacteria (None) /hpf 12/07/17 12/07/17 12/07/17 Range/Units 15:33 17:11 23:47 RBC (3.80-5.40) m/uL Hgb (11.4-16.0) gm/dL Hct (34.0-46.0) % MCV (80.0-100.0) fL MCHC (31.0-37.0) g/dL RDW (11.5-15.5) % Lymphocytes # (Manual) (1.0-4.8) k/uL APTT 53.7 H (22.0-30.0) sec Potassium (3.5-5.1) mmol/L Chloride (98-107) mmol/L Carbon Dioxide (22-30) mmol/L BUN (7-17) mg/dL Creatinine (0.52-1.04) mg/dL Glucose (74-99) mg/dL Calcium (8.4-10.2) mg/dL Magnesium (1.6-2.3) mg/dL AST (14-36) U/L ALT (9-52) U/L Troponin I 0.037 H* (0.000-0.034) ng/mL Total Protein (6.3-8.2) g/dL Urine Protein Trace H (Negative) Ur Leukocyte Esterase Moderate H (Negative) Urine WBC 47 H (0-5) /hpf Urine Bacteria Few H (None) /hpf 12/08/17 12/08/17 12/08/17 Range/Units 06:02 06:02 06:02 RBC 2.46 L (3.80-5.40) m/uL Hgb 7.7 L D (11.4-16.0) gm/dL Hct 24.9 L (34.0-46.0) % MCV 101.2 H (80.0-100.0) fL MCHC (31.0-37.0) g/dL RDW 16.8 H (11.5-15.5) % Lymphocytes # (Manual) (1.0-4.8) k/uL APTT 33.7 H (22.0-30.0) sec Potassium (3.5-5.1) mmol/L Chloride 114 H (98-107) mmol/L Carbon Dioxide 19 L (22-30) mmol/L BUN 29 H (7-17) mg/dL Creatinine 1.20 H (0.52-1.04) mg/dL Glucose (74-99) mg/dL Calcium 7.2 L (8.4-10.2) mg/dL Magnesium (1.6-2.3) mg/dL AST (14-36) U/L ALT (9-52) U/L Troponin I (0.000-0.034) ng/mL Total Protein (6.3-8.2) g/dL Urine Protein (Negative) Ur Leukocyte Esterase (Negative) Urine WBC (0-5) /hpf Urine Bacteria (None) /hpf Microbiology - Last 24 Hours (Table) 12/07/17 15:33 Urine Culture - Preliminary Urine,Catheterized Thrombosis Risk Factor Assmnt - DVT/VTE Prophylaxis DVT/VTE Prophylaxis: Mechanical Prophylaxis ordered - Choose All That Apply Each Factor Represents 1 point: Abnormal pulmonary function (COPD) Each Risk Factor Represents 2 Points: Age 61-74 years Thrombosis Risk Factor Assessment Total Risk Factor Score: 3 Thrombosis Risk Factor Assessment Level: Moderate Risk Assessment and Plan Plan: 1 elevated troponin with possible acute coronary syndrome: Patient be hospitalized, troponin 3 will be done, will see cardiology echocardiogram and her other testing to be done. Patient BNP from her last admission to [facility] was quite bit high was treated aggressively for congestive heart failure diastolic dysfunction. 2 hypoxia: With pulse ox running in the 80s only, continue O2 try to keep pulse ox above 90 percentile and patient will be go back on Advair along with 1 AB continue nebulizer treatment will consult pulmonary. 3 Alter mental status: Combination of sepsis, hypoxia, UTI, anemia and other. Patient will be seen neurology, , if need further workup including EEG and brain CT will be done. 4 sepsis and UTI: Previously diagnosed with E. coli many time also had significant candidiasis was doing nystatin topical patient had responded to levofloxacin in the past which can be use this point ~cultures final. 5 sacral ulcer: Stage IV, infectious disease, blood culture, IV antibiotics and topical care and patient will require probably wound care in the long run. 6 acute anemia with acute blood loss: Patient is known to have colorectal cancer , should watch Hemoccult and watch for any further bleed. Patient is not taking currently any anticoagulation. 7 chronic pain syndrome: Patient has been on Percocet along with muscle relaxer which is baclofen in the past reduce the dose slightly. 8 debility: Not been able to ambulate and walk with significant generalized weakness, will consult social media manager and further need and help should have meeting with the family to discuss further planning because specially with the failure to do physical therapy at [facility] I doubted that patient will be able to go back to do any short term rehab and fpc. Patient might benefit from longer term planning for either placement in assisted living or adult foster home or long-term fpc. 9 hypertension: Has been on losartan 50 mg a day along with atenolol 25 mg daily continue both medication. 10 hyperlipidemia: Has been on pravastatin 80 mg daily. 11 seizure: Patient is on Keppra 500 mg twice a day and the on add of her altered mental status related to seizure specially she is not using her medication regularly still a possibility. 12 chronic depression: Patient has been on Cymbalta 60 mg twice a day along with BuSpar 15 mg daily. 13 hypothyroidism: Continue levothyroxine at 25 g daily. 14 acute kidney injury: With stage III chronic kidney disease, continue to hydrate patient gently and watch her BUN/creatinine. CODE STATUS: Full code. Admit patient to inpatient status for more than 2 nights.
--- NOTE | 2017-12-08 09:58 | P.CRDCN ---
History of Present Illness History of present illness: Mrs. Mendoza is a pleasant 72-year-old female past medical history significant for hypertension, peripheral vascular disease status post stenting, details unknown at this time. History of CVA in the past. She denies personal coronary artery disease, diabetes mellitus or dyslipidemia. She states she has never followed with cardiology for any reason. We have been asked to see her in consultation for elevated troponin. She was recently admitted into [facility] for approximately 3 weeks then [facility]. She was just sent home from [facility] 2 days ago. She states she was trying to get back into bed last night and her family called EMS. She denies any symptoms and is unsure of the reason why her family called EMS. She denies symptoms of chest pain, shortness of breath, nausea, vomiting, diaphoresis, palpitations or dizziness. He documentation indicates she has had generalized weakness for this reason that is why the family called EMS. EKG reveals diffuse T-wave abnormalities in inferior, anterior and lateral leads. There is no old EKG to compare. Chest xray negative for an acute cardiopulmonary process. Laboratory data reviewed, hemoglobin on admission 10.3 repeat today 7.7, platelets 270, sodium 141, potassium 5.0, creatinine on admission 1.81.2 this morning, GFR 46, troponin 0.057, 0.037, 0.034, 0.03 with normal CK-MBs. LDL 60 , HDL 46. Current cardiac medications include Lopressor 25 mg 3 times a day, Cardizem 180 mg daily, Plavix 75 mg daily, pravastatin 80 mg daily, losartan 50 mg daily, and atenolol 25 mg twice a day. She also takes Ventolin, Advair, Percocet, Keppra, BuSpar, Synthroid, Pepcid and baclofen. Review of Systems At the time of my exam: CONSTITUTIONAL: Denies fever. Denies chills. EYES: Denies blurred vision. Denies vision changes. Denies eye pain. EARS, NOSE, MOUTH & THROAT: Denies headache. Denies sore throat. Denies ear pain. CARDIOVASCULAR: Denies chest pain. Denies shortness of breath. Denies orthopnea. Denies PND. Denies palpitations. RESPIRATORY: Denies cough. GASTROINTESTINAL: Denies abdominal pain. Denies diarrhea. Denies constipation. Denies nausea. Denies vomiting. MUSCULOSKELETAL: Denies myalgias. INTEGUMENTARY: Denies pruitis. Denies rash. NEUROLOGIC: Denies numbness. Denies tingling. Denies weakness. PSYCHIATRIC: Denies anxiety. Denies depression. ENDOCRINE: Denies fatigue. Denies weight change. Denies polydipsia. Denies polyurina. GENITOURINARY: Denies burning, hematuria or urgency with micturation. HEMATOLOGIC: Denies history of anemia. Denies bleeding. Past Medical History Past Medical History: Cancer, CVA/TIA, Hypertension, Rheumatoid Arthritis (RA), Thyroid Disorder Additional Past Medical History / Comment(s): anal ca 2011; pt stated that she had a stroke back in 2001, stent to the legs History of Any Multi-Drug Resistant Organisms: None Reported Past Surgical History: Back Surgery, Hysterectomy, Orthopedic Surgery Additional Past Surgical History / Comment(s): hip and right knee surg Past Anesthesia/Blood Transfusion Reactions: No Reported Reaction Past Psychological History: Panic Disorder Smoking Status: Former smoker Past Alcohol Use History: None Reported Past Drug Use History: None Reported - Past Family History Mother Family Medical History: CVA/TIA Father Additional Family Medical History / Comment(s): father of blot clots 6months after cabg Medications and Allergies Home Medications Medication Instructions Recorded Confirmed Type Atenolol [Tenormin] 25 mg PO BID 02/22/16 12/07/17 History Baclofen [Lioresal] 10 mg PO TID 02/22/16 12/07/17 History DULoxetine HCL [Cymbalta] 60 mg PO BID 02/22/16 12/07/17 History Famotidine [Pepcid] 40 mg PO BID 02/22/16 12/07/17 History Fluticasone/Salmeterol [Advair Hfa 2 puff INHALATION RT-BID 02/22/16 12/07/17 History 115-21 Mcg Inhaler] Folic Acid 2 mg PO DAILY 02/22/16 12/07/17 History Lansoprazole 30 mg PO DAILY 02/22/16 12/07/17 History Levothyroxine Sodium [Synthroid] 25 mcg PO DAILY 02/22/16 12/07/17 History Losartan [Cozaar] 50 mg PO DAILY 02/22/16 12/07/17 History Pravastatin Sodium [Pravachol] 80 mg PO HS 02/22/16 12/07/17 History busPIRone HCL 15 mg PO BID 02/22/16 12/07/17 History levETIRAcetam [Keppra] 500 mg PO Q12HR 02/22/16 12/07/17 History oxyCODONE-APAP 10-325MG [Percocet 1 tab PO Q8HR PRN 02/22/16 12/07/17 History 10-325 mg] Potassium Chloride ER [K-Dur 10] 10 meq PO BID 08/29/17 12/07/17 History Albuterol Inhaler [Ventolin Hfa 2 puff INHALATION RT-Q6H PRN 12/07/17 12/07/17 History Inhaler] Clopidogrel [Plavix] 75 mg PO DAILY 12/07/17 12/07/17 History Diltiazem Cd [Cardizem Cd] 180 mg PO DAILY 12/07/17 12/07/17 History Metoprolol Tartrate [Lopressor] 25 mg PO TID 12/07/17 12/07/17 History Allergies Allergy/AdvReac Type Severity Reaction Status Date / Time aspirin Allergy Unknown Verified 09/02/17 10:54 fluoxetine [From Prozac] Allergy Unknown Verified 09/02/17 10:54 ibuprofen [From Motrin] Allergy Unknown Verified 09/02/17 10:54 indomethacin [From Indocin] Allergy Unknown Verified 09/02/17 10:54 Iodinated Contrast- Oral and Allergy Unknown Verified 09/02/17 10:54 IV Dye Penicillins Allergy Anaphylaxis Verified 09/02/17 10:54 Sulfa (Sulfonamide AdvReac Nausea & Verified 09/02/17 10:54 Antibiotics) Vomiting & Diarrhea Physical Exam Vitals: Vital Signs Temp Pulse Pulse Resp BP BP Pulse Ox 12/08/17 08:00 97.8 F 75 16 88/51 96 12/08/17 07:38 64 12/08/17 07:23 60 12/08/17 04:00 97 F L 60 17 93/50 96 12/07/17 23:50 60 18 12/07/17 23:45 96.6 F L 60 18 92/50 95 12/07/17 21:07 97.4 F L 12/07/17 20:50 96.6 F L 64 17 97/52 95 12/07/17 20:48 64 17 96/50 97 12/07/17 19:44 59 L 18 96/54 99 12/07/17 18:54 91 17 82/49 95 12/07/17 17:24 58 L 98 12/07/17 17:05 55 L 95 12/07/17 15:55 65 17 99/53 99 12/07/17 14:16 57 L 17 74/46 98 12/07/17 13:53 57 L 17 78/48 100 12/07/17 11:48 97.1 F L 71 17 82/49 89 L Intake and Output 12/07/17 12/08/17 12/08/17 22:59 06:59 14:59 Intake Total 906.224 6887 Output Total 900 Balance -834.291 5912 Intake: Intake, IV Titration 827.426 2913 Amount Heparin Sod,Pork in 0.45% 134.587 NaCl 25,000 unit In 0.45 % NaCl 1 500ml.bag @ 12 UNITS/KG/HR 11.2 mls/hr IV .Q24H ISAEL Rx#: [id number] Sodium Chloride 0.9% 1, 1500 000 ml @ 100 mls/hr IV . Q10H ISAEL Rx#:[id number] Output: Urine 900 Other: Voiding Method Bedside Commode # Bowel Movements 1 1 Weight 47 kg 49.2 kg Blood pressure 88/51 heart rate 75 afebrile maintaining oxygen saturation on nasal cannula GENERAL: This is a 72-year-old female in no apparent distress at the time of my examination. Frail. HEENT: Head is atraumatic, normocephalic. Pupils are equal, round. Sclerae anicteric. Conjunctivae are clear. Mucous membranes of the mouth are moist. Neck is supple. There is no jugular venous distention. No carotid bruit is heard. LUNGS: Clear to auscultation no wheezes, rales or rhonchi. No chest wall tenderness is noted on palpation or with deep breathing. HEART: Regular rate and rhythm without murmurs, rubs or gallops. S1 and S2 heard. Distant heart sounds. ABDOMEN: Soft, nontender. Bowel sounds are heard. No organomegaly noted. EXTREMITIES: No evidence of peripheral edema and no calf tenderness noted. VASCULAR: Radial and dorsalis pedis pulses palpated, no evidence of clubbing. NEUROLOGIC: Patient is awake, alert and oriented x3. Results 12/08/17 06:02 12/08/17 06:02 Cardiac Enzymes 12/07/17 12/07/17 12/07/17 Range/Units 12:25 12:25 17:11 AST 46 H (14-36) U/L CK-MB (CK-2) 1.6 (0.0-2.4) ng/mL Troponin I 0.057 H* 0.037 H* (0.000-0.034) ng/mL 12/07/17 12/08/17 Range/Units 23:47 06:02 AST (14-36) U/L CK-MB (CK-2) 1.7 1.8 (0.0-2.4) ng/mL Troponin I 0.034 0.030 (0.000-0.034) ng/mL Coagulation 12/07/17 12/07/17 12/08/17 Range/Units 12:25 23:47 06:02 PT 9.6 (9.0-12.0) sec APTT 22.1 53.7 H 33.7 H (22.0-30.0) sec Lipids 12/08/17 Range/Units 06:02 Triglycerides 131 (<150) mg/dL Cholesterol 132 (<200) mg/dL HDL Cholesterol 46 (40-60) mg/dL CBC 12/07/17 12/08/17 Range/Units 12:25 06:02 WBC 6.6 4.2 (3.8-10.6) k/uL RBC 3.41 L 2.46 L (3.80-5.40) m/uL Hgb 10.3 L 7.7 L D (11.4-16.0) gm/dL Hct 33.8 L 24.9 L (34.0-46.0) % Plt Count 313 D 270 (150-450) k/uL Comprehensive Metabolic Panel 12/07/17 12/08/17 Range/Units 12:25 06:02 Sodium 138 141 (137-145) mmol/L Potassium 5.2 H 5.0 (3.5-5.1) mmol/L Chloride 103 114 H (98-107) mmol/L Carbon Dioxide 25 19 L (22-30) mmol/L BUN 36 H 29 H (7-17) mg/dL Creatinine 1.80 H 1.20 H (0.52-1.04) mg/dL Glucose 118 H 93 (74-99) mg/dL Calcium 9.0 7.2 L (8.4-10.2) mg/dL AST 46 H (14-36) U/L ALT 103 H (9-52) U/L Alkaline Phosphatase 94 (38-126) U/L Total Protein 6.2 L (6.3-8.2) g/dL Albumin 3.6 (3.5-5.0) g/dL Current Medications Generic Name Dose Route Start Last Admin Trade Name Freq PRN Reason Stop Dose Admin Acetaminophen 500 mg 12/08/17 05:37 12/08/17 06:19 Tylenol Tab PO 500 mg Q6HR PRN Administration Fever and/ or Pain Albuterol Sulfate 2.5 mg 12/07/17 18:28 12/08/17 07:23 Ventolin Nebulized INHALATION 2.5 mg RT-Q6H PRN Administration Shortness Of Breath Atenolol 25 mg 12/07/17 21:00 12/08/17 08:39 Tenormin PO Not Given BID [facility] Budesonide/Formoterol Fumarate 2 puff 12/08/17 08:00 12/08/17 07:23 Symbicort 160-4.5 Mcg Inhaler INHALATION 2 puff RT-BID ISAEL Administration Buspirone HCl 15 mg 12/07/17 21:00 12/08/17 08:45 Buspar PO 15 mg BID ISAEL Administration Clopidogrel Bisulfate 75 mg 12/08/17 09:00 12/08/17 08:46 Plavix PO 75 mg DAILY ISAEL Administration Diltiazem HCl 180 mg 12/08/17 09:00 12/08/17 08:39 Cardizem Cd PO Not Given DAILY [facility] Duloxetine HCl 60 mg 12/07/17 21:00 12/08/17 08:46 Cymbalta PO 60 mg BID ISAEL Administration Famotidine 40 mg 12/07/17 21:00 12/08/17 08:46 Pepcid PO 40 mg BID ISAEL Administration Folic Acid 2 mg 12/08/17 12:00 Folic Acid PO 1200 ISAEL Sodium Chloride 1,000 mls @ 100 mls/hr 12/08/17 06:30 12/08/17 06:50 Saline 0.9% IV 100 mls/hr .Q10H ISAEL Administration Levetiracetam 500 mg 12/07/17 21:00 12/08/17 08:46 Keppra PO 500 mg Q12HR ISAEL Administration Levothyroxine Sodium 25 mcg 12/08/17 06:30 12/08/17 06:49 Synthroid PO 25 mcg 0630 ISAEL Administration Losartan Potassium 50 mg 12/08/17 09:00 12/08/17 08:39 Cozaar PO Not Given DAILY ISAEL Metoprolol Tartrate 25 mg 12/07/17 22:00 12/08/17 08:39 Lopressor PO Not Given TID ISAEL Nitroglycerin 0.4 mg 12/07/17 18:24 Nitrostat SUBLINGUAL Q5M PRN Chest Pain Oxycodone/Acetaminophen 1 each 12/07/17 18:28 12/07/17 20:55 Percocet 10-325 PO 1 each Q8HR PRN Administration MODERATE Pain Pantoprazole Sodium 40 mg 12/08/17 09:00 12/08/17 08:47 Protonix PO 40 mg DAILY ISAEL Administration Potassium Chloride 10 meq 12/07/17 21:00 12/08/17 08:47 K-Dur 10 PO 10 meq BID ISAEL Administration Pravastatin Sodium 80 mg 12/07/17 21:00 12/07/17 22:35 Pravachol PO 80 mg HS ISAEL Administration Intake and Output 12/07/17 12/08/17 12/08/17 22:59 06:59 14:59 Intake Total 568.580 9886 Output Total 900 Balance -395.784 8555 Intake: Intake, IV Titration 637.222 3770 Amount Heparin Sod,Pork in 0.45% 134.587 NaCl 25,000 unit In 0.45 % NaCl 1 500ml.bag @ 12 UNITS/KG/HR 11.2 mls/hr IV .Q24H ISAEL Rx#: [id number] Sodium Chloride 0.9% 1, 1500 000 ml @ 100 mls/hr IV . Q10H ISAEL Rx#:[id number] Output: Urine 900 Other: Voiding Method Bedside Commode # Bowel Movements 1 1 Weight 47 kg 49.2 kg 12/08/17 06:02 12/08/17 06:02 Assessment and Plan Assessment: ASSESSMENT Elevated troponin of unclear etiology, possibly related to oxygen supply demand mismatch with hypoxia on admission. May also be related to acute anemia with 3 gram blood loss in 24 hours. EKG abnormalities, unknown if acute or chronic with no old EKG for comparison Hypoxia on admission, pulse ox saturation in 80's Anemia, unknown etiology. Denies any acute blood loss. Has history of rectal cancer. Hypertension, currently hypotensive. Acute sepsis, positive blood cultures per family from [facility] recently. Dyslipidemia Peripheral vascular disease s/p stenting per the patient this occurred 5 weeks ago Chronic kidney disease PLAN Obtain 2D echocardiogram and doppler study to assess cardiac structure and function. Hold antihypertensives while systolic bp less than 90. She is on 2 beta blocking agents, discontinue atenolol. Discontinue heparin infusion secondary to drop in hgb. Obtain records from recent admission at [facility] to compare EKG and assess extent of cardiac workup. Further recommendations to follow based on clinical course. Thank you kindly for this consultation. Nurse Practitioner note has been reviewed, I agree with a documented findings and plan of care. Patient was seen and examined.
[2017-12-08] MEDS ORDERED: LEVOFLOXACIN 250MG-D5W PMX 250 MG in DEXTROSE/WATER 1 50ML.BAG IVPB SCH (10:00)
[2017-12-08] MEDS: FOLIC ACID 1 MG TAB PO SCH (11:41)
[2017-12-08] MEDS: cefTRIAXone IN SWFI 1,000 MG/10 ML SYRINGE IVP SCH (16:21)
--- NOTE | 2017-12-08 20:54 | CONS ---
CONSULTATION DATE OF DICTATION: December 08, 2017. REQUESTING PHYSICIAN: Dr. Lorenzo. REASON FOR CONSULTATION: Severe anemia and chronic diarrhea. HISTORY OF PRESENT ILLNESS: The patient is a 72-year-old pleasant white female with history of anal cancer for which she underwent chemo radiation therapy and follows with Dr. Knott on a regular basis. She was admitted to the hospital because of progressive weakness, not feeling well, hypertension, and mild hypoxia. In the emergency room, she was noted to have a hemoglobin of 7.7 and hence we are consulted in regards to this issue. The patient states that she has been having chronic diarrhea for the last one month duration. She was in fact admitted two weeks ago and was discharged to [facility]. She does not recall as to what was the reason she was admitted to [facility]. The patient states that she has been having diarrhea with bowel movements anywhere from four to five a day which are loose to watery in consistency but denies any blood or mucous in the stool. She also mentioned that she did have a colonoscopy by Dr. Ferro about one or two months ago at [facility], according to her, it was within normal limits. She has been taking Imodium as needed for the chronic diarrhea. She has noticed a small amount of blood in the stool occasion. She denies abdominal pain. Reports no nausea, vomiting. PAST MEDICAL HISTORY: Significant for history of hypertension, rheumatoid arthritis, hypothyroidism, degenerative joint disease, anal cancer diagnosed in 2011, status post radiation and chemotherapy. PAST SURGICAL HISTORY: Hysterectomy, back surgery, hip surgery and right knee surgery. MEDICATIONS: At home include Folic acid, Prevacid, Tricor,Pravachol, Keppra, Buspirone, oxycodone, potassium chloride, albuterol, Plavix, Cardizem, Lopressor. ALLERGIES: TO PROZAC, MOTRIN, INDOCIN, IV DYE, PENICILLIN. SOCIAL HISTORY: No smoking. No alcohol use. FAMILY HISTORY: Unremarkable. REVIEW OF SYSTEMS: Cardiopulmonary: No chest pain or shortness of breath. Genitourinary: No dysuria or hematuria. Musculoskeletal: Unremarkable. Skin: Decub in the buttocks. Neurology unremarkable. Psychiatric unremarkable. ENT vision unremarkable. Musculoskeletal . ENT/Vision: Unremarkable. Constitutional: No recent weight loss. No fever, chills, night sweats. PHYSICAL EXAMINATION: She appears comfortable, in no apparent distress. VITAL SIGNS: Stable. Blood pressure is 122/82, pulse rate 80 per minute and afebrile. HEENT examination: Unremarkable. Conjunctivae pink. Sclerae anicteric. Oral cavity no lesions. NECK: No jugular venous distention or lymph node enlargement. Chest was clear to auscultation. HEART: Regular rate and rhythm. ABDOMEN: Soft. Bowel sounds are positive. No organomegaly. EXTREMITIES: No pedal edema. Skin: No rashes. NEUROLOGIC: Alert and oriented x3. No focal deficits. LABS: WBC 6.6, hemoglobin 10.3, and platelets 17.3. Today hemoglobin is down to 7.7, WBC is 4.2, and platelets are normal. BUN is 32 and creatinine 1.2. AST and ALT of 46 and 103 respectively. Rest of the labs are within normal limits. Troponin was 0.3. IMPRESSION: 1. Severe symptomatic anemia with a hemoglobin of 7.7 g/dL, but clinically no evidence of active ongoing bleeding. She noticed small amount of bright red blood in the stool a couple of weeks ago, but since being in the hospital, she has been having diarrhea with no active gastrointestinal bleed. Stool Hemoccult was negative. The patient states that she did have a colonoscopy by Dr. Ferro, the reports of which are not available at the time of this dictation. According to her, it was within normal limits. C. dif toxin was negative. 2. Chronic diarrhea. 3. Elevated troponin for which cardiology has been consulted. RECOMMENDATIONS: 1. Obtain . 2. Obtain colonoscopy report from [facility] that was done in the last 1 or 2 months. 3. evidence of active bleeding, I do not have any plans for endoscopic intervention. 4. I will review records of her endoscopy and further recommendations will follow. For now, we will follow the patient patient closely during her hospital stay. Thank you for this consultation. MMODL / IJN: [id number] /
[2017-12-08] MEDS: PRAVASTATIN SODIUM 80 MG TAB PO SCH (21:19)
[2017-12-09] MEDS: SODIUM CHLORIDE 0.9% 1,000 ML IV SCH ×3 (04:56→23:26)
[2017-12-09 06:42] LABS: Anisocytosis Slight; HCT 24.3 % (34.0-46.0); HGB 7.4 gm/dL (11.4-16.0); Hypochromasia Marked; MCH 31.1 pg (25.0-35.0); MCHC 30.6 g/dL (31.0-37.0); MCV 101.6 fL (80.0-100.0); Macrocytosis Slight; Mean Platelet Volume 8.2; Platelet Count 331 k/uL (150-450); RBC 2.39 m/uL (3.80-5.40); RDW 17.1 % (11.5-15.5); WBC 4.2 k/uL (3.8-10.6)
[2017-12-09 06:52] LABS: ALT 59 U/L (9-52); AST 30 U/L (14-36); Albumin 2.3 g/dL (3.5-5.0); Alkaline Phosphatase 60 U/L (38-126); Anion Gap 4 mmol/L; Blood Urea Nitrogen 12 mg/dL (7-17); Calcium 7.5 mg/dL (8.4-10.2); Carbon Dioxide 21 mmol/L (22-30); Chloride 116 mmol/L (98-107); Glucose 80 mg/dL (74-99); Potassium 4.8 mmol/L (3.5-5.1); Sodium 141 mmol/L (137-145); Total Bilirubin <0.1 mg/dL (0.2-1.3); Total Protein 4.4 g/dL (6.3-8.2)
[2017-12-09] MEDS: LEVOTHYROXINE 25 MCG TAB PO SCH (06:52)
[2017-12-09] MEDS: SYMBICORT 160-4.5 MCG INHALER INHALATION SCH ×2 (07:42→19:33)
[2017-12-09 07:43] LABS: Band Neutrophils % 1 %; Eosinophils # (M) 0.17 k/uL (0-0.7); Large Platelets Present; Lymphocytes # (M) 0.55 k/uL (1.0-4.8); Monocytes # (M) 0.59 k/uL (0-1.0); Myelocytes # (M) 0.04 k/uL (0); Myelocytes % 1 %; Neutrophils % (M) 69 %; Nucleated Red Blood Cells 0 /100 WBC (0-0); Polychromasia Present; Total Cells Counted 200
[2017-12-09 07:44] LABS: Poikilocytosis (M) Present
[2017-12-09] MEDS: cefTRIAXone IN SWFI 1,000 MG/10 ML SYRINGE IVP SCH (09:07)
[2017-12-09] MEDS: oxyCODONE-APAP 10-325MG 1 EACH TAB PO PRN ×2 (09:08→23:25)
[2017-12-09] MEDS: DULoxetine HCL 60 MG CAPSULE.DR PO SCH ×2 (09:09→21:02)
[2017-12-09] MEDS: CLOPIDOGREL 75 MG TAB PO SCH (09:09)
[2017-12-09] MEDS: DILTIAZEM CD 180 MG CAP.ER.24H PO SCH (09:09)
[2017-12-09] MEDS: FAMOTIDINE 20 MG TAB PO SCH ×2 (09:09→21:01)
[2017-12-09] MEDS: busPIRone HCl 5 MG TAB PO SCH ×2 (09:09→21:01)
[2017-12-09] MEDS: POTASSIUM CHLORIDE ER 10 MEQ TAB.ER.PRT PO SCH ×2 (09:10→21:01)
[2017-12-09] MEDS: METOPROLOL TARTRATE 25 MG TAB PO SCH ×3 (09:10→23:26)
[2017-12-09] MEDS: levETIRAcetam 500 MG TAB PO SCH ×2 (09:10→23:25)
[2017-12-09] MEDS: PANTOPRAZOLE 40 MG TABLET PO SCH (09:10)
[2017-12-09] MEDS: LOSARTAN 50 MG TAB PO SCH (09:10)
[2017-12-09] MEDS ORDERED: LOPERAMIDE 2 MG CAP PO PRN ×2 (10:20→20:01)
[2017-12-09] MEDS ORDERED: LOPERAMIDE 2 MG CAP PO STA (10:20)
[2017-12-09 10:23] VITALS: BMI 21.4
--- NOTE | 2017-12-09 10:42 | P.CONS ---
History of Present Illness - Reason for Consult Consult date: 12/09/17 Recurrent UTI and sepsis - History of Present Illness This is a 72-year-old female patient has been treated for recurrent UTIs. Patient was hospitalized twice at [facility] in the past 4 weeks and then transferred to [facility] for rehab patient apparently was discharged from [facility] on the as she apparently refused to do physical therapy she then presented to [facility] and was discharged home from the emergency center with plan for family to take care of her. According to Dr. Lorenzo's note patient has claimed that the family were not giving her her medications. Patient then presented to [facility] emergency center as she was found by her home care nurse to have hypotension and not feeling well with mild hypoxia on presentation she had a pulse ox of 89% below blood pressure with systolic in the 70s and 80s. Patient was afebrile, white count was 6.6. Hemoglobin initially 10.3 and repeat 7.4. P1 was 36 and creatinine 1.8 with repeat of 12 and 0.8 respectively patient has had a C. diff toxin negative and occult stool negative her urinalysis was clear, leukoesterase moderate, WBCs 47. Urine culture is showing group D enterococcus and blood culture is currently showing no growth after 24 hours patient did have a positive urine culture done at [facility] last week that was VRE and she also has a blood culture showing gram-positive cocci that has not been finalized. Regarding her diarrhea, patient states that she has had this for a number of months with stools watery consistency 4-5 times per day. She states Imodium does help her. She has decreased appetite with at least a 9 pound weight loss in the past couple months. She complains of some nausea without vomiting she states she always feels cold all the time with no definite complaints of fever. She is complaining of pain to the buttocks area where she has a stage IV decubitus in the sacral area. Wound culture in progress. Patient was initially on Levaquin and this has been transitioned to Rocephin and daptomycin based on previous cultures. Patient was admitted to the selective care unit. She has been seen by cardiology for elevated troponins of unclear etiology, possibly related to oxygen supply demand mismatch with hypoxia on admission and possibly related to acute anemia area echocardiogram has been ordered and all antihypertensives have been on hold, heparin discontinued. Patient has also been seen by Dr. Dominique Viera and there are currently no plans for endoscopy intervention. She will review the endoscopy reports from [facility]. Review of Systems All systems: negative Constitutional: Reports anorexia, Reports chills, Reports poor appetite, Reports weight loss, Denies fever Eyes: denies blurred vision, denies pain Ears, nose, mouth and throat: Denies dental pain, Denies dysphagia, Denies headache, Denies mouth pain, Denies sore throat, Denies vertigo Cardiovascular: Denies chest pain, Denies decreased exercise tolerance, Denies dyspnea on exertion, Denies edema, Denies leg edema, Denies lightheadedness, Denies shortness of breath, Denies syncope Respiratory: Denies cough, Denies cough with sputum, Denies dyspnea, Denies excessive sputum, Denies hemoptysis, Denies home oxygen, Denies wheezing Gastrointestinal: Reports diarrhea, Reports loss of appetite, Reports nausea, Denies abdominal pain, Denies constipation, Denies melena, Denies vomiting Genitourinary: Denies dysuria, Denies hematuria, Denies urgency, Denies urinary frequency Musculoskeletal: Denies myalgias Integumentary: Denies pruritus, Denies rash Neurological: Denies numbness, Denies weakness Psychiatric: Denies anxiety, Denies depression Endocrine: Denies fatigue, Denies weight change Past Medical History Past Medical History: Cancer, CVA/TIA, Hypertension, Rheumatoid Arthritis (RA), Thyroid Disorder Additional Past Medical History / Comment(s): anal ca 2011; pt stated that she had a stroke back in 2001, stent to the legs History of Any Multi-Drug Resistant Organisms: None Reported Past Surgical History: Back Surgery, Hysterectomy, Orthopedic Surgery Additional Past Surgical History / Comment(s): hip and right knee surg Past Anesthesia/Blood Transfusion Reactions: No Reported Reaction Past Psychological History: Panic Disorder Smoking Status: Former smoker Past Alcohol Use History: None Reported Additional Past Alcohol Use History / Comment(s): Patient lives at home with her and he is unable to care for her. She was recently [facility] for rehab Past Drug Use History: None Reported - Past Family History Mother Family Medical History: CVA/TIA Father Additional Family Medical History / Comment(s): father of blot clots 6months after cabg Medications and Allergies Home Medications Medication Instructions Recorded Confirmed Type Atenolol [Tenormin] 25 mg PO BID 02/22/16 12/07/17 History Baclofen [Lioresal] 10 mg PO TID 02/22/16 12/07/17 History DULoxetine HCL [Cymbalta] 60 mg PO BID 02/22/16 12/07/17 History Famotidine [Pepcid] 40 mg PO BID 02/22/16 12/07/17 History Fluticasone/Salmeterol [Advair Hfa 2 puff INHALATION RT-BID 02/22/16 12/07/17 History 115-21 Mcg Inhaler] Folic Acid 2 mg PO DAILY 02/22/16 12/07/17 History Lansoprazole 30 mg PO DAILY 02/22/16 12/07/17 History Levothyroxine Sodium [Synthroid] 25 mcg PO DAILY 02/22/16 12/07/17 History Losartan [Cozaar] 50 mg PO DAILY 02/22/16 12/07/17 History Pravastatin Sodium [Pravachol] 80 mg PO HS 02/22/16 12/07/17 History busPIRone HCL 15 mg PO BID 02/22/16 12/07/17 History levETIRAcetam [Keppra] 500 mg PO Q12HR 02/22/16 12/07/17 History oxyCODONE-APAP 10-325MG [Percocet 1 tab PO Q8HR PRN 02/22/16 12/07/17 History 10-325 mg] Potassium Chloride ER [K-Dur 10] 10 meq PO BID 08/29/17 12/07/17 History Albuterol Inhaler [Ventolin Hfa 2 puff INHALATION RT-Q6H PRN 12/07/17 12/07/17 History Inhaler] Clopidogrel [Plavix] 75 mg PO DAILY 12/07/17 12/07/17 History Diltiazem Cd [Cardizem Cd] 180 mg PO DAILY 12/07/17 12/07/17 History Metoprolol Tartrate [Lopressor] 25 mg PO TID 12/07/17 12/07/17 History Allergies Allergy/AdvReac Type Severity Reaction Status Date / Time aspirin Allergy Unknown Verified 09/02/17 10:54 fluoxetine [From Prozac] Allergy Unknown Verified 09/02/17 10:54 ibuprofen [From Motrin] Allergy Unknown Verified 09/02/17 10:54 indomethacin [From Indocin] Allergy Unknown Verified 09/02/17 10:54 Iodinated Contrast- Oral and Allergy Unknown Verified 09/02/17 10:54 IV Dye Penicillins Allergy Anaphylaxis Verified 09/02/17 10:54 Sulfa (Sulfonamide AdvReac Nausea & Verified 09/02/17 10:54 Antibiotics) Vomiting & Diarrhea Physical Exam Vitals: Vital Signs Temp Pulse Pulse Resp BP Pulse Ox 12/09/17 09:00 97.8 F 86 16 129/63 93 L 12/09/17 04:00 97.7 F 84 16 106/61 95 12/09/17 00:00 98.3 F 95 16 95/59 95 12/08/17 20:18 82 12/08/17 20:08 82 12/08/17 20:00 98.4 F 95 16 94/56 98 12/08/17 16:00 97.5 F L 82 16 91/51 98 12/08/17 11:55 82 16 12/08/17 11:20 82 16 88/48 98 Intake and Output 12/08/17 12/09/17 12/09/17 22:59 06:59 14:59 Intake Total 240 240 Output Total 1500 900 Balance -1260 -660 Intake: Oral 240 240 Output: Urine 1500 900 Uretheral (Arceo) 700 900 Other: Voiding Method Indwelling Catheter Indwelling Catheter Weight 55 kg Gen: This is a thin 72-year-old female patient. She is in bed and appears to be comfortable. She appears to be in no acute distress. No respiratory distress is noted. HEENT: Head is atraumatic, normocephalic. Pupils equal, round. Sclerae is anicteric. Conjunctiva pink. Because members of the mouth are somewhat dry. Dentures in place. NECK: Supple. No JVD. No lymphadenopathy. No thyromegaly. LUNGS: Clear to auscultation. No wheezes or rhonchi. No intercostal retractions. HEART: Regular rate and rhythm. No murmur. ABDOMEN: Soft. Bowel sounds are present. No masses. No tenderness. Arceo catheter in place draining clear ayla urine. Patient has known stage IV decubitus ulcer to the sacrum which was not evaluated and referred to Dr. Clifford. EXTREMITIES: No pedal edema. No calf tenderness. Dorsalis pedis is +1 bilaterally. NEUROLOGICAL: Patient is awake, alert and oriented x3. Cranial nerves 2 through 12 are grossly intact. Results Results: Laboratory Results WBC 4.2 k/uL (3.8-10.6) 12/09/17 06:02 RBC 2.39 m/uL (3.80-5.40) L 12/09/17 06:02 Hgb 7.4 gm/dL (11.4-16.0) L 12/09/17 06:02 Hct 24.3 % (34.0-46.0) L 12/09/17 06:02 MCV 101.6 fL (80.0-100.0) H 12/09/17 06:02 MCH 31.1 pg (25.0-35.0) 12/09/17 06:02 MCHC 30.6 g/dL (31.0-37.0) L 12/09/17 06:02 RDW 17.1 % (11.5-15.5) H 12/09/17 06:02 Plt Count 331 k/uL (150-450) 12/09/17 06:02 Neutrophils % (Manual) 69 % 12/09/17 06:02 Band Neutrophils % 1 % 12/09/17 06:02 Lymphocytes % (Manual) 13 % 12/09/17 06:02 Monocytes % (Manual) 14 % 12/09/17 06:02 Eosinophils % (Manual) 4 % 12/09/17 06:02 Myelocytes % 1 % 12/09/17 06:02 Neutrophils # (Manual) 2.90 k/uL (1.3-7.7) 12/09/17 06:02 Lymphocytes # (Manual) 0.55 k/uL (1.0-4.8) L 12/09/17 06:02 Monocytes # (Manual) 0.59 k/uL (0-1.0) 12/09/17 06:02 Eosinophils # (Manual) 0.17 k/uL (0-0.7) 12/09/17 06:02 Myelocytes # (Manual) 0.04 k/uL (0) H 12/09/17 06:02 Nucleated RBCs 0 /100 WBC (0-0) 12/09/17 06:02 Manual Slide Review Performed 12/09/17 06:02 Large Platelets Present 12/09/17 06:02 Polychromasia Present 12/09/17 06:02 Hypochromasia Marked 12/09/17 06:02 Poikilocytosis (manual Present 12/09/17 06:02 Anisocytosis Slight 12/09/17 06:02 Macrocytosis Slight 12/09/17 06:02 PT 9.6 sec (9.0-12.0) 12/07/17 12:25 INR 1.0 (<1.2) 12/07/17 12:25 APTT 33.7 sec (22.0-30.0) H 12/08/17 06:02 Sodium 141 mmol/L (137-145) 12/09/17 06:02 Potassium 4.8 mmol/L (3.5-5.1) 12/09/17 06:02 Chloride 116 mmol/L (98-107) H 12/09/17 06:02 Carbon Dioxide 21 mmol/L (22-30) L 12/09/17 06:02 Anion Gap 4 mmol/L 12/09/17 06:02 BUN 12 mg/dL (7-17) 12/09/17 06:02 Creatinine 0.80 mg/dL (0.52-1.04) 12/09/17 06:02 Est GFR (CKD-EPI)AfAm 87 (>60 ml/min/1.73 sqM) 12/09/17 06:02 Est GFR (CKD-EPI)NonAf 75 (>60 ml/min/1.73 sqM) 12/09/17 06:02 Glucose 80 mg/dL (74-99) 12/09/17 06:02 Plasma Lactic Acid Juan 1.3 mmol/L (0.7-2.0) 12/07/17 12:25 Calcium 7.5 mg/dL (8.4-10.2) L 12/09/17 06:02 Magnesium 2.7 mg/dL (1.6-2.3) H 12/07/17 12:25 Total Bilirubin <0.1 mg/dL (0.2-1.3) L 12/09/17 06:02 AST 30 U/L (14-36) 12/09/17 06:02 ALT 59 U/L (9-52) H 12/09/17 06:02 Alkaline Phosphatase 60 U/L (38-126) 12/09/17 06:02 Total Creatine Kinase 38 U/L (30-135) 12/08/17 06:02 CK-MB (CK-2) 1.8 ng/mL (0.0-2.4) 12/08/17 06:02 CK-MB (CK-2) Rel Index 4.7 12/08/17 06:02 Troponin I 0.030 ng/mL (0.000-0.034) 12/08/17 06:02 Total Protein 4.4 g/dL (6.3-8.2) L 12/09/17 06:02 Albumin 2.3 g/dL (3.5-5.0) L 12/09/17 06:02 Triglycerides 131 mg/dL (<150) 12/08/17 06:02 Cholesterol 132 mg/dL (<200) 12/08/17 06:02 LDL Cholesterol, Calc 60 mg/dL (0-99) 12/08/17 06:02 HDL Cholesterol 46 mg/dL (40-60) 12/08/17 06:02 Urine Color Yellow 12/07/17 15:33 Urine Appearance Clear (Clear) 12/07/17 15:33 Urine pH 5.5 (5.0-8.0) 12/07/17 15:33 Ur Specific Howard 1.012 (1.001-1.035) 12/07/17 15:33 Urine Protein Trace (Negative) H 12/07/17 15:33 Urine Glucose (UA) Negative (Negative) 12/07/17 15:33 Urine Ketones Negative (Negative) 12/07/17 15:33 Urine Blood Negative (Negative) 12/07/17 15:33 Urine Nitrite Negative (Negative) 12/07/17 15:33 Urine Bilirubin Negative (Negative) 12/07/17 15:33 Urine Urobilinogen <2.0 mg/dL (<2.0) 12/07/17 15:33 Ur Leukocyte Esterase Moderate (Negative) H 12/07/17 15:33 Urine WBC 47 /hpf (0-5) H 12/07/17 15:33 Urine Bacteria Few /hpf (None) H 12/07/17 15:33 Stool Occult Blood Negative (Negative) 12/08/17 08:15 C. difficile (EIA) Intrp Negative (Negative) 12/08/17 08:15 CBC & Chem 7: 12/09/17 06:02 12/09/17 06:02 Labs: Abnormal Lab Results - Last 24 Hours (Table) 12/09/17 12/09/17 Range/Units 06:02 06:02 RBC 2.39 L (3.80-5.40) m/uL Hgb 7.4 L (11.4-16.0) gm/dL Hct 24.3 L (34.0-46.0) % MCV 101.6 H (80.0-100.0) fL MCHC 30.6 L (31.0-37.0) g/dL RDW 17.1 H (11.5-15.5) % Lymphocytes # (Manual) 0.55 L (1.0-4.8) k/uL Myelocytes # (Manual) 0.04 H (0) k/uL Chloride 116 H (98-107) mmol/L Carbon Dioxide 21 L (22-30) mmol/L Calcium 7.5 L (8.4-10.2) mg/dL Total Bilirubin <0.1 L (0.2-1.3) mg/dL ALT 59 H (9-52) U/L Total Protein 4.4 L (6.3-8.2) g/dL Albumin 2.3 L (3.5-5.0) g/dL Microbiology - Last 24 Hours (Table) 12/08/17 14:50 Urine Culture - Preliminary Urine,Catheterized 12/08/17 11:00 Gram Stain - Preliminary Buttock Wound Culture - Preliminary 12/07/17 15:33 Urine Culture - Preliminary Urine,Catheterized Group D Enterococcus 12/08/17 11:00 Anaerobic Culture - Preliminary Buttock 12/07/17 12:25 Blood Culture - Preliminary Blood No Growth after 24 hours Assessment and Plan Plan: This is a 72-year-old female who presented to the hospital with elevated troponins, acute hypoxic respiratory failure, metabolic encephalopathy secondary to him sepsis with UTI and underlying sacral ulcer stage IV. There is concern also for acute blood loss anemia and patient presented with acute kidney injury as well with known chronic kidney disease stage III. Patient has been seen by cardiology regarding the elevated troponins. She has been seen by Dr. Barnes regarding diarrhea. We will add in Imodium as patient states this usually helps her stools improved consistency. [facility] urine culture has been finalized with VRE and patient is to be placed in isolation. Blood culture at [place] urine is positive for gram-positive cocci. Repeat blood culture showing no growth after 24 hours here blood cultures from the decubitus are in progress. Local wound care will be in the form of therahoney. Continue supportive care. Further recommendations as patient progresses. The above dictated assessment and findings were discussed with Dr. Clifford. The impression and plan of care have been directed as dictated. Louisa Edmond nurse practitioner acting as scribe for Dr. Clifford.
[2017-12-09] MEDS: ALBUTEROL NEBULIZED 2.5 MG/3 ML INHALATION PRN ×2 (11:34→19:34)
[2017-12-09] MEDS ORDERED: NYSTAT-TRIAMCIN 100,000-0.1 UNIT/GM-% OINT 30 GM TUBE TOPICAL SCH (12:15)
[2017-12-09] MEDS: FOLIC ACID 1 MG TAB PO SCH (13:12)
[2017-12-09] MEDS: TRIAMCINOLONE ACET 0.1% OINTMENT 15 GM TUBE TOPICAL SCH ×2 (13:16→21:00)
[2017-12-09] MEDS: NYSTATIN 100,000 UNIT/GM OINT 30 GM TUBE TOPICAL SCH ×2 (13:16→21:00)
--- NOTE | 2017-12-09 13:21 | P.PN ---
Subjective Progress Note Date: 12/09/17 Mrs. Mendoza is a pleasant 72-year-old female past medical history significant for hypertension, peripheral vascular disease status post stenting, details unknown at this time. History of CVA in the past. Patient was recently admitted to [facility] for approximately 3 weeks and then sent to [facility] for rehab. She states she was trying to get into bed and her family called EMS. She was really unsure on this admission Y she was here. Cardiology was asked to see the patient because of abnormal troponin. Her EKG on admission revealed diffuse T-wave abnormalities in the inferior anterior lateral leads. Laboratory data, hemoglobin 7.4 today, platelet count 331. Sodium 141, potassium 4.8, BUN 12, creatinine 0.8. Blood pressure today 114/60 with a heart rate in the 70s. Echocardiogram with Doppler study remains pending. Patient was seen and examined this morning, still feeling weak. No other complaints. Objective - Vital Signs Vital signs: Vital Signs Temp 97.8 F 12/09/17 09:00 Pulse 76 12/09/17 11:55 Resp 16 12/09/17 11:55 BP 114/62 12/09/17 11:55 Pulse Ox 94 L 12/09/17 11:55 Intake & Output 12/08/17 12/09/17 12/09/17 18:59 06:59 18:59 Intake Total 1740 240 180 Output Total 800 1600 Balance 940 -1360 180 Weight 55 kg 55 kg Intake: Intake, IV Titration 1500 Amount Sodium Chloride 0.9% 1, 1500 000 ml @ 100 mls/hr IV . Q10H [facility] Rx#:[id number] Oral 240 240 180 Output: Urine 800 1600 Uretheral (Acreo) 1600 Other: Voiding Method Indwelling Catheter Indwelling Catheter Indwelling Catheter # Bowel Movements 1 2 - Exam Blood pressure 88/51 heart rate 75 afebrile maintaining oxygen saturation on nasal cannula GENERAL: This is a 72-year-old female in no apparent distress at the time of my examination. Frail. HEENT: Head is atraumatic, normocephalic. Pupils are equal, round. Sclerae anicteric. Conjunctivae are clear. Mucous membranes of the mouth are moist. Neck is supple. There is no jugular venous distention. No carotid bruit is heard. LUNGS: Clear to auscultation no wheezes, rales or rhonchi. No chest wall tenderness is noted on palpation or with deep breathing. HEART: Regular rate and rhythm without murmurs, rubs or gallops. S1 and S2 heard. Distant heart sounds. ABDOMEN: Soft, nontender. Bowel sounds are heard. No organomegaly noted. EXTREMITIES: No evidence of peripheral edema and no calf tenderness noted. VASCULAR: Radial and dorsalis pedis pulses palpated, no evidence of clubbing. NEUROLOGIC: Patient is awake, alert and oriented x3. - Labs CBC & Chem 7: 12/09/17 06:02 12/09/17 06:02 Labs: Abnormal Lab Results - Last 24 Hours (Table) 12/09/17 12/09/17 Range/Units 06:02 06:02 RBC 2.39 L (3.80-5.40) m/uL Hgb 7.4 L (11.4-16.0) gm/dL Hct 24.3 L (34.0-46.0) % MCV 101.6 H (80.0-100.0) fL MCHC 30.6 L (31.0-37.0) g/dL RDW 17.1 H (11.5-15.5) % Lymphocytes # (Manual) 0.55 L (1.0-4.8) k/uL Myelocytes # (Manual) 0.04 H (0) k/uL Chloride 116 H (98-107) mmol/L Carbon Dioxide 21 L (22-30) mmol/L Calcium 7.5 L (8.4-10.2) mg/dL Total Bilirubin <0.1 L (0.2-1.3) mg/dL ALT 59 H (9-52) U/L Total Protein 4.4 L (6.3-8.2) g/dL Albumin 2.3 L (3.5-5.0) g/dL Microbiology - Last 24 Hours (Table) 12/08/17 14:50 Urine Culture - Preliminary Urine,Catheterized 12/08/17 11:00 Gram Stain - Preliminary Buttock Wound Culture - Preliminary 12/07/17 15:33 Urine Culture - Preliminary Urine,Catheterized Group D Enterococcus 12/08/17 11:00 Anaerobic Culture - Preliminary Buttock 12/07/17 12:25 Blood Culture - Preliminary Blood No Growth after 24 hours Assessment and Plan Plan: ASSESSMENT #1 Elevated troponin of unclear etiology, possibly related to oxygen supply demand mismatch with hypoxia on admission. May also be related to acute anemia with 3 gram blood loss in 24 hours. #2 EKG abnormalities, unknown if acute or chronic with no old EKG for comparison #3 Hypoxia on admission, pulse ox saturation in 80's #4 Anemia, unknown etiology. Denies any acute blood loss. Has history of rectal cancer. #5 Hypertension, currently hypotensive. #6 Acute sepsis, positive blood cultures per family from [facility] recently. #7 Dyslipidemia #8 Peripheral vascular disease s/p stenting per the patient this occurred 5 weeks ago #9 Chronic kidney disease Plan Records from [facility] of been reviewed, left ventricular systolic function is normal at 55-60%. EKG performed there revealed similar changes to the patient's EKG here. Number perspective we'll continue the patient on her current medications. DNP note has been reviewed, I agree with a documented findings and plan of care. Patient was seen and examined.
--- NOTE | 2017-12-09 14:45 | P.CNPUL ---
History of Present Illness Consult date: 12/09/17 Reason for consult: hypoxemia History of present illness: This is a 72-year-old female patient with previous history of colorectal cancer in addition to COPD, recurrent UTIs, depression and hypothyroidism who was residing at [facility] after being admitted to [facility] and transferred to [facility] was essentially to undergo rehabilitation. The patient declined the treatment and she she ultimately did not finish her rehabilitation and she went home and within 2 days she was readmitted to [facility]. During this current admission, the patient is found to have a 1 x 1 cm stage IV sacral decub ulceration with active drainage in addition to significant skin excoriation within the medial aspect of the buttock cheek with significant erythema and skin erosion and sloughing in addition to purulent material covering the skin surface. No fever. No chills. She was noted to be short of breath and it was reported by the burst department the patient was hypoxic with a pulse ox of 80% at a time of admission patient was also found to be in acute kidney injury with a creatinine of 1.3 at the time of admission. At time of my evaluation, the patient was resting comfortably in bed and pulse ox was 97% on room air. She denied having any respiratory distress. No cough sputum production chest tightness or wheezing. No pleurisy or hemoptysis. No reported aspiration. No chest pain or angina. No significant swelling in the lower extremities. She is able to answers questions appropriately. She is quite debilitated and she is unable to walk independently and she moves around with the help of a walker. She does minimal amount of work and she is help for activities of daily today life. I noted that her renal function is improved and normalized with IV fluids. She is chronically anemic. However, it was noted that hemoglobin dropped from a baseline of 10.3 down to 7.4. No signs of any GI bleeding. She was having loose liquidy bowel movements and the stool for C. diff has been negative. Stool for occult blood is also negative. Review of Systems Constitutional: Reports fatigue, Reports lethargy, Reports weakness Eyes: denies blurred vision, denies bulging eye, denies decreased vision Ears: deny: decreased hearing, ear discharge, earache Ears, nose, mouth and throat: Reports as per HPI Cardiovascular: Reports decreased exercise tolerance, Reports shortness of breath Respiratory: Reports dyspnea Gastrointestinal: Denies abdominal pain, Denies diarrhea, Denies nausea, Denies vomiting Genitourinary: Denies dysuria, Denies hematuria Musculoskeletal: Reports gait dysfunction, Reports limitation of motion Musculoskeletal: absent: ankle pain, ankle stiffness, ankle swelling Integumentary: Reports as per HPI, Reports wounds Neurological: Reports change in mentation, Reports gait dysfunction, Reports weakness Psychiatric: Denies anxiety, Denies depression Endocrine: Denies fatigue, Denies weight change Hematologic/Lymphatic: Reports as per HPI Allergic/Immunologic: Reports as per HPI Past Medical History Past Medical History: Cancer, CVA/TIA, Hypertension, Rheumatoid Arthritis (RA), Thyroid Disorder Additional Past Medical History / Comment(s): Colorectal/anal cancer 2012, CVA, TIA, depression, rheumatoid arthritis, hypothyroidism, peripheral vascular disease with previous stenting to the lower extremities, degenerative arthritis and chronic back pain History of Any Multi-Drug Resistant Organisms: None Reported Date of last positivie culture/infection: November 2017 ([facility]) MDRO Source:: Urine Past Surgical History: Back Surgery, Hysterectomy, Orthopedic Surgery Additional Past Surgical History / Comment(s): hip and right knee surg Past Anesthesia/Blood Transfusion Reactions: No Reported Reaction Past Psychological History: Panic Disorder Smoking Status: Former smoker Past Alcohol Use History: None Reported Additional Past Alcohol Use History / Comment(s): Patient lives at home with her and he is unable to care for her. She was recently [facility] for rehab Past Drug Use History: None Reported - Past Family History Mother Family Medical History: CVA/TIA Father Additional Family Medical History / Comment(s): father of blot clots 6months after cabg Medications and Allergies Home Medications Medication Instructions Recorded Confirmed Type Atenolol [Tenormin] 25 mg PO BID 02/22/16 12/07/17 History Baclofen [Lioresal] 10 mg PO TID 02/22/16 12/07/17 History DULoxetine HCL [Cymbalta] 60 mg PO BID 02/22/16 12/07/17 History Famotidine [Pepcid] 40 mg PO BID 02/22/16 12/07/17 History Fluticasone/Salmeterol [Advair Hfa 2 puff INHALATION RT-BID 02/22/16 12/07/17 History 115-21 Mcg Inhaler] Folic Acid 2 mg PO DAILY 02/22/16 12/07/17 History Lansoprazole 30 mg PO DAILY 02/22/16 12/07/17 History Levothyroxine Sodium [Synthroid] 25 mcg PO DAILY 02/22/16 12/07/17 History Losartan [Cozaar] 50 mg PO DAILY 02/22/16 12/07/17 History Pravastatin Sodium [Pravachol] 80 mg PO HS 02/22/16 12/07/17 History busPIRone HCL 15 mg PO BID 02/22/16 12/07/17 History levETIRAcetam [Keppra] 500 mg PO Q12HR 02/22/16 12/07/17 History oxyCODONE-APAP 10-325MG [Percocet 1 tab PO Q8HR PRN 02/22/16 12/07/17 History 10-325 mg] Potassium Chloride ER [K-Dur 10] 10 meq PO BID 08/29/17 12/07/17 History Albuterol Inhaler [Ventolin Hfa 2 puff INHALATION RT-Q6H PRN 12/07/17 12/07/17 History Inhaler] Clopidogrel [Plavix] 75 mg PO DAILY 12/07/17 12/07/17 History Diltiazem Cd [Cardizem Cd] 180 mg PO DAILY 12/07/17 12/07/17 History Metoprolol Tartrate [Lopressor] 25 mg PO TID 12/07/17 12/07/17 History Allergies Allergy/AdvReac Type Severity Reaction Status Date / Time aspirin Allergy Unknown Verified 09/02/17 10:54 fluoxetine [From Prozac] Allergy Unknown Verified 09/02/17 10:54 ibuprofen [From Motrin] Allergy Unknown Verified 09/02/17 10:54 indomethacin [From Indocin] Allergy Unknown Verified 09/02/17 10:54 Iodinated Contrast- Oral and Allergy Unknown Verified 09/02/17 10:54 IV Dye Penicillins Allergy Anaphylaxis Verified 09/02/17 10:54 Sulfa (Sulfonamide AdvReac Nausea & Verified 09/02/17 10:54 Antibiotics) Vomiting & Diarrhea Physical Exam Vitals: Vital Signs Temp Pulse Pulse Resp BP Pulse Ox 12/09/17 11:55 76 16 114/62 94 L 12/09/17 11:46 82 16 07/30/18 11:35 84 16 12/09/17 09:00 97.8 F 86 16 129/63 93 L 12/09/17 04:00 97.7 F 84 16 106/61 95 12/09/17 00:00 98.3 F 95 16 95/59 95 12/08/17 20:18 82 12/08/17 20:08 82 12/08/17 20:00 98.4 F 95 16 94/56 98 12/08/17 16:00 97.5 F L 82 16 91/51 98 Intake and Output 12/08/17 12/09/17 12/09/17 22:59 06:59 14:59 Intake Total 240 240 180 Output Total 1500 900 Balance -1260 -660 180 Intake: Oral 240 240 180 Output: Urine 1500 900 Uretheral (Arceo) 700 900 Other: Voiding Method Indwelling Catheter Indwelling Catheter Indwelling Catheter # Bowel Movements 2 Weight 55 kg 55 kg General Appearance: Alert, slightly confused , currently on room air oxygen and there is no apparent signs of any respiratory distress for now. Neck HEENT: Supple, no lymphadenopathy, no thyroid enlargement, no carotid bruits. Lungs: Decreased breath sound bilaterally fine rhonchi mild expiratory wheezes. Chest Wall: Decreased expansion with deep inspiration bilaterally worse on the left on the right side with mild rhonchi and positive expiratory wheezes.. Heart: Regular rate and rhythm, S1, S2 normal, no murmur, rub or gallop. Back: Decubitus in the sacral area measuring 11 with depth of 1 cm looks like stage IV sacral area. Abdomen: Soft slight discomfort in the epigastric area with significant yeast infection in the lower part extending into the groin area bilaterally. Extremities: Extremities normal, atraumatic, no cyanosis or edema. Pulses: 2+ and symmetric. Skin: Skin color, texture, tugor normal, no rashes or lesions. Stage IV sacral decub ulceration 1 x 1 cm in addition to extensive skin erosion and erythema along with superficial purulent material covering the surface wound along the medial aspect of the gluteus Neurologic: Alert slightly confused moving all her 4 extremity has generalized weakness no focal deficit also had mild resting tremor. Results - Laboratory Findings CBC and BMP: 12/09/17 06:02 12/09/17 06:02 PT/INR, D-dimer PT 9.6 sec (9.0-12.0) 12/07/17 12:25 INR 1.0 (<1.2) 12/07/17 12:25 Abnormal lab findings: Abnormal Labs 12/07/17 12/07/17 12/07/17 12:25 12:25 12:25 RBC 3.41 L Hgb 10.3 L Hct 33.8 L MCV MCHC 30.5 L RDW 17.3 H Lymphocytes # (Manual) 0.33 L Myelocytes # (Manual) APTT Potassium 5.2 H Chloride Carbon Dioxide BUN 36 H Creatinine 1.80 H Glucose 118 H Calcium Magnesium 2.7 H Total Bilirubin AST 46 H ALT 103 H Troponin I 0.057 H* Total Protein 6.2 L Albumin Urine Protein Ur Leukocyte Esterase Urine WBC Urine Bacteria 12/07/17 12/07/17 12/07/17 15:33 17:11 23:47 RBC Hgb Hct MCV MCHC RDW Lymphocytes # (Manual) Myelocytes # (Manual) APTT 53.7 H Potassium Chloride Carbon Dioxide BUN Creatinine Glucose Calcium Magnesium Total Bilirubin AST ALT Troponin I 0.037 H* Total Protein Albumin Urine Protein Trace H Ur Leukocyte Esterase Moderate H Urine WBC 47 H Urine Bacteria Few H 12/08/17 12/08/17 12/08/17 06:02 06:02 06:02 RBC 2.46 L Hgb 7.7 L D Hct 24.9 L MCV 101.2 H MCHC RDW 16.8 H Lymphocytes # (Manual) 0.29 L Myelocytes # (Manual) APTT 33.7 H Potassium Chloride 114 H Carbon Dioxide 19 L BUN 29 H Creatinine 1.20 H Glucose Calcium 7.2 L Magnesium Total Bilirubin AST ALT Troponin I Total Protein Albumin Urine Protein Ur Leukocyte Esterase Urine WBC Urine Bacteria 12/09/17 12/09/17 06:02 06:02 RBC 2.39 L Hgb 7.4 L Hct 24.3 L MCV 101.6 H MCHC 30.6 L RDW 17.1 H Lymphocytes # (Manual) 0.55 L Myelocytes # (Manual) 0.04 H APTT Potassium Chloride 116 H Carbon Dioxide 21 L BUN Creatinine Glucose Calcium 7.5 L Magnesium Total Bilirubin <0.1 L AST ALT 59 H Troponin I Total Protein 4.4 L Albumin 2.3 L Urine Protein Ur Leukocyte Esterase Urine WBC Urine Bacteria - Diagnostic Findings Chest x-ray: image reviewed Assessment and Plan Plan: Assessment 1 transient hypoxemia, recovered and the patient is currently on room air oxygen with her pulse ox above 94% and the patient denies having any respiratory distress. Chest x-ray on admission is within normal limits. No signs of pneumonia. No signs of aspiration. Pulmonary embolism is doubtful especially with the improvement in her oxidation that was seen over the past 24 hours. 2 altered mentation, recovered and the patient seems to be much more alert compared to yesterday 3 acute kidney injury, recovered and the renal function is normalized 4 history of recurrent urine checked infection with E. coli and Keri. Rule out recurrent urine checked infection and based on that urine cultures of been sent and the results are still pending. 5 sacral decub stage IV in addition to superficial skin excoriation/cellulitis along the medial aspect of the gluteus , bilaterally 6 chronic pain 7 depression 8 debility with difficulty with mobility and ambulation and the patient needs help with activities of daily today life and the patient was residing in snf 9 hypertension 10 hyperlipidemia 11 seizure disorder 12 hypothyroidism 13 troponin leak, nonspecific finding, awaiting cardiology evaluation. Plan No need for any further workup in regards to the pulmonary status. The patient' s oxidation is normalized. Watch for any signs of aspiration. Continue albuterol about treatments every 6 hours when necessary. Patient has baseline COPD and the patient is currently on Symbicort 160/4.52 puffs twice a day. The patient has cellulitis of the gluteus area in addition to a stage IV sacral decubitus ulceration and the patient is currently on a combination of Rocephin and daptomycin. Local wound care with medihoney in addition to a pressure dressing, Versiva. Resume outpatient medications. Renal function is normalized. IV fluids for another 24 hours at the same rate of 100 mL an hour and drop her down to a maintenance. We'll continue to follow.
[2017-12-09 16:20] LABS: Glucose,Whole Blood 100 mg/dL (75-99)
--- NOTE | 2017-12-09 16:55 | ECHOF ---
Referral Reason:lvfunction MEASUREMENTS -------- HEIGHT: 160.0 cm WEIGHT: 49.0 kg BP: 100/61 IVSd: 1.1 cm (0.6 - 1.1) LVIDd: 3.2 cm (3.9 - 5.3) LVPWd: 1.0 cm (0.6 - 1.1) IVSs: 1.4 cm LVIDs: 2.7 cm LVPWs: 1.0 cm Ao Diam: 2.9 cm (2.0 - 3.7) LA Diam: 4.0 cm (2.7 - 3.8) MV EXCURSION: 15.965 mm (> 18.000) MV EF SLOPE: 49 mm/s (70 - 150) MV E Scot: 0.87 m/s MV DecT: 160 ms MV A Scot: 0.65 m/s MV E/A Ratio: 1.35 RAP: 5.00 mmHg RVSP: 17.46 mmHg FINDINGS -------- Sinus rhythm. This was a technically adequate study. LV size, wall thickness and systolic function are normal, with an EF greater than 55%. The left shaq tricular size is normal. The right ventricle is normal in size. The left atrial size is normal. The right atrial size is normal. The aortic valve is trileaflet, and appears structurally normal. No aortic stenosis or regurgitation. Mild mitral annular calcification present. Mild mitral regurgitation is present. Mild tricuspid regurgitation present. There is no evidence of pulmonary hypertension. The right v entricular systolic pressure, as measured by Doppler, is 17.46mmHg. Trace/mild (physiologic) pulmonic regurgitation. The aortic root size is normal. There is no pericardial effusion. CONCLUSIONS -------- 1. LV size, wall thickness and systolic function are normal, with an EF greater than 55%. 2. The left ventricular size is normal. 3. The right ventricle is normal in size. 4. The left atrial size is normal. 5. The right atrial size is normal. 6. The aortic valve is trileaflet, and appears structurally normal. No aortic stenosis or regurgitati on. 7. Mild mitral annular calcification present. 8. Mild mitral regurgitation is present. 9. Mild tricuspid regurgitation present. 10. There is no evidence of pulmonary hypertension. 11. The right ventricular systolic pressure, as measured by Doppler, is 17.46mmHg. 12. Trace/mild (physiologic) pulmonic regurgitation. 13. The aortic root size is normal. 14. There is no pericardial effusion. CRANE ASSEMBLER: Suyapa Haney RDCS
[2017-12-09 18:52] LABS: Iron Saturation 5.91 (12.00-45.00)
[2017-12-09 19:30] LABS: T4, Free (Free Thyroxine) 1.48 ng/dL (0.78-2.19)
[2017-12-09] MEDS: PRAVASTATIN SODIUM 80 MG TAB PO SCH (21:01)
--- NOTE | 2017-12-09 23:55 | P.CON ---
Consult Note - . Consult date: 12/09/17 Assessment/Plan:: is is a 72-year-old female patient has been treated for recurrent UTIs. Patient was hospitalized twice at [facility] in the past 4 weeks and then transferred to [facility] for rehab patient apparently was discharged from [facility] on the as she apparently refused to do physical therapy she then presented to [facility] and was discharged home from the emergency center with plan for family to take care of her. According to Dr. Lorenzo's note patient has claimed that the family were not giving her her medications. Patient then presented to [facility] emergency center as she was found by her home care nurse to have hypotension and not feeling well with mild hypoxia on presentation she had a pulse ox of 89% below blood pressure with systolic in the 70s and 80s. Patient was afebrile, white count was 6.6. Hemoglobin initially 10.3 and repeat 7.4. P1 was 36 and creatinine 1.8 with repeat of 12 and 0.8 respectively patient has had a C. diff toxin negative and occult stool negative her urinalysis was clear, leukoesterase moderate, WBCs 47. Urine culture is showing group D enterococcus and blood culture is currently showing no growth after 24 hours patient did have a positive urine culture done at [facility] last week that was VRE and she also has a blood culture showing gram-positive cocci that has not been finalized. Regarding her diarrhea, patient states that she has had this for a number of months with stools watery consistency 4-5 times per day. She states Imodium does help her. She has decreased appetite with at least a 9 pound weight loss in the past couple months. She complains of some nausea without vomiting she states she always feels cold all the time with no definite complaints of fever. She is complaining of pain to the buttocks area where she has a stage IV decubitus in the sacral area. Wound culture in progress. Patient was initially on Levaquin and this has been transitioned to Rocephin and daptomycin based on previous cultures. Patient was admitted to the selective care unit. She has been seen by cardiology for elevated troponins of unclear etiology, possibly related to oxygen supply demand mismatch with hypoxia on admission and possibly related to acute anemia area echocardiogram has been ordered and all antihypertensives have been on hold, heparin discontinued. Patient has also been seen by Dr. Lynn Viera and there are currently no plans for endoscopy intervention. She will review the endoscopy reports from [facility]. Please see the consult note is dictated by nurse practitioner Mrs. Louisa Edmond. Fortunately at this time the patient is comfortable. However data is reviewed from the outside hospital, there is evidence of VRE in her urine culture and blood cultures are pending potentially positive for gram-positive cocci per preliminary report. Urine culture at this facility clarifies and enterococcus. With this daptomycin was initiated, and Rocephin was also utilized given her history of prior gram-negative urinary tract infections also it will continue this until final cultures available. May need to have plans for outpatient intravenous antibiotic therapy. Wound care to the coccyx ulceration as well as the optifoam dressing which she is tolerating well. I agree with the Evaluation, assessment and plan as dictated by nurse practitioner Mrs. Louisa Edmond. Patient will be followed by Dr. Wisdom after today.
--- NOTE | 2017-12-10 00:22 | CONS ---
CONSULTATION DATE OF CONSULTATION: 12/09/2017. CHIEF COMPLAINT: History of seizures. HISTORY OF PRESENT ILLNESS: Ms. Mendoza is a pleasant 72-year-old female seen by our service per the request of Dr. Lorenzo for history of seizures. She was brought into [facility] Emergency Room after her visiting nurse noticed that she was quite fatigued and was having hypotension and mild hypoxia. The patient is bedridden. And was also found to have a stage IV decubitus ulcer in the sacral region while being evaluated in the emergency room. She was admitted for further workup and management. She was also found to have elevated troponins and Cardiology was consulted. Her workup also revealed a urinary tract infection which she is currently on antibiotics. Regarding her seizure history, she states that she has had epilepsy for several years. This has been very well controlled on Keppra 500 mg b.i.d. She states that her last breakthrough seizure was several years ago. She denies any neurological complaints at this time except she has a chronic tremor involving bilateral upper extremities. PAST MEDICAL HISTORY: Seizure disorder, history of rectal cancer, strokes, hypertension, rheumatoid arthritis, hypothyroidism, peripheral vascular disease, history of lower extremity stent placement, history of spinal surgery, hysterectomy, orthopedic surgeries, history of panic attacks. SOCIAL HISTORY: The patient is a former smoker. She denies any alcohol or drug use. FAMILY HISTORY: Positive for strokes and heart disease. HOME MEDICATIONS: Reviewed in the chart. ALLERGIES: ASPIRIN, PROZAC, MOTRIN, INDOCIN, IV DYE, PENICILLIN, SULFA DRUGS. REVIEW OF SYSTEMS: As mentioned above and otherwise negative. PHYSICAL EXAM: VITAL SIGNS: Temperature of 97.8, pulse 82, respirations 16, blood pressure 129/63. GENERAL APPEARANCE: The patient is a thin elderly female who appears to be in no acute distress. HEENT: Normocephalic, atraumatic. No facial asymmetry is seen. NECK: Supple with no masses felt. CARDIOVASCULAR: Regular rate and rhythm. ABDOMEN: Nontender, nondistended. EXTREMITIES: No edema or clubbing. NEUROLOGICAL: The patient is awake and oriented to person and place. She knew it was the year 2017 but thought we were in the month of February. Speech and language are normal. Postural tremors are seen in bilateral upper extremities. Strength is 4/5 in bilateral lower extremities and 5-/5 in bilateral upper extremities. Sensory exam showed diminished light touch sensation in bilateral distal lower extremities. No facial asymmetry is seen on cranial nerve testing. No seizure-like activity is seen. IMPRESSION: 1. History of seizure disorder. 2. Altered mental status. 3. Infectious and hypoxic encephalopathy. 4. Episode of hypotension. 5. Elevated cardiac enzymes. 6. Urinary tract infection. 7. Hypoxia. RECOMMENDATIONS: The patient's altered mental status is likely due to a combination of and hypoxic etiologies. The patient was also hypotensive which has improved. Continue current workup and management for these findings. From a neurology standpoint, the patient's history of seizures is long-standing. Her seizures are very well controlled on Keppra and I will keep her on her home dose of 500 mg b.i.d. An EEG has been ordered. I will continue to follow with you. Further recommendations to follow. Thank you for allowing me to participate in the care of your patient. If you have any questions, please feel free to contact me. RIAZ / KAYLEY: [id number] /
[2017-12-10] MEDS: ACETAMINOPHEN TAB 500 MG TAB PO PRN (05:37)
[2017-12-10] MEDS: LEVOTHYROXINE 25 MCG TAB PO SCH (06:08)
[2017-12-10 06:43] LABS: Anisocytosis Slight; HCT 26.8 % (34.0-46.0); HGB 8.1 gm/dL (11.4-16.0); Hypochromasia Moderate; MCH 29.6 pg (25.0-35.0); MCHC 30.1 g/dL (31.0-37.0); MCV 98.5 fL (80.0-100.0); Macrocytosis Slight; Mean Platelet Volume 8.3; Platelet Count 405 k/uL (150-450); RBC 2.73 m/uL (3.80-5.40); RDW 16.6 % (11.5-15.5); WBC 3.9 k/uL (3.8-10.6)
[2017-12-10 06:44] LABS: ALT 53 U/L (9-52); AST 34 U/L (14-36); Albumin 2.6 g/dL (3.5-5.0); Alkaline Phosphatase 66 U/L (38-126); Anion Gap 4 mmol/L; Blood Urea Nitrogen 9 mg/dL (7-17); Carbon Dioxide 20 mmol/L (22-30); Chloride 116 mmol/L (98-107); Glucose 81 mg/dL (74-99); Potassium 4.9 mmol/L (3.5-5.1); Sodium 140 mmol/L (137-145); Total Bilirubin 0.1 mg/dL (0.2-1.3); Total Protein 4.8 g/dL (6.3-8.2)
[2017-12-10] MEDS: SYMBICORT 160-4.5 MCG INHALER INHALATION SCH ×2 (07:42→19:19)
[2017-12-10 09:01] LABS: Eosinophils # (M) 0.12 k/uL (0-0.7); Lymphocytes # (M) 0.47 k/uL (1.0-4.8); Metamyelocytes # (M) 0.04 k/uL (0); Metamyelocytes % 1 %; Monocytes # (M) 0.43 k/uL (0-1.0); Myelocytes # (M) 0.08 k/uL (0); Myelocytes % 2 %; Neutrophils # (M) 2.81 k/uL (1.3-7.7); Neutrophils % (M) 72 %; Nucleated Red Blood Cells 0 /100 WBC (0-0); Total Cells Counted 200
[2017-12-10 09:02] LABS: Polychromasia Present
[2017-12-10] MEDS: cefTRIAXone IN SWFI 1,000 MG/10 ML SYRINGE IVP SCH (09:11)
[2017-12-10] MEDS: TRIAMCINOLONE ACET 0.1% OINTMENT 15 GM TUBE TOPICAL SCH ×2 (09:11→22:33)
[2017-12-10] MEDS: oxyCODONE-APAP 10-325MG 1 EACH TAB PO PRN ×2 (09:11→16:11)
[2017-12-10] MEDS: NYSTATIN 100,000 UNIT/GM OINT 30 GM TUBE TOPICAL SCH ×2 (09:11→22:32)
[2017-12-10] MEDS: DULoxetine HCL 60 MG CAPSULE.DR PO SCH ×2 (09:11→22:32)
[2017-12-10] MEDS: DILTIAZEM CD 180 MG CAP.ER.24H PO SCH (09:12)
[2017-12-10] MEDS: LOSARTAN 50 MG TAB PO SCH (09:12)
[2017-12-10] MEDS: PANTOPRAZOLE 40 MG TABLET PO SCH (09:12)
[2017-12-10] MEDS: levETIRAcetam 500 MG TAB PO SCH ×2 (09:12→22:31)
[2017-12-10] MEDS: busPIRone HCl 5 MG TAB PO SCH ×2 (09:12→22:31)
[2017-12-10] MEDS: FOLIC ACID 1 MG TAB PO SCH (09:12)
[2017-12-10] MEDS: POTASSIUM CHLORIDE ER 10 MEQ TAB.ER.PRT PO SCH ×2 (09:12→22:32)
[2017-12-10] MEDS: FAMOTIDINE 20 MG TAB PO SCH ×2 (09:12→22:32)
[2017-12-10] MEDS: CLOPIDOGREL 75 MG TAB PO SCH (09:12)
[2017-12-10] MEDS: METOPROLOL TARTRATE 25 MG TAB PO SCH ×3 (09:12→22:34)
[2017-12-10] MEDS: SODIUM CHLORIDE 0.9% 1,000 ML IV SCH ×2 (09:13→22:32)
--- NOTE | 2017-12-10 10:02 | P.PN ---
Subjective Progress Note Date: 12/09/17 72-year-old female one of Dr. Delaney's patient is known to have history of colorectal cancer, recurrent UTI, COPD from chronic smoking, depression, hypothyroidism who was hospitalized at [facility] twice in the last 4 weeks and was transferred to [facility] rehab and apparently refused to do physical therapy and rehab was discharged home sometimes last week ended up at the emergency department at [facility] the same night no major finding was discharged home to return to the emergency room one more time at [facility] with similar circumstances with no finding again for the second time the patient ended up being discharged home from the ER and agree to be taking care of by family. Patient repeatedly keeps claiming that her family are not giving her medication once taking care of her and such despite the failure to maintain and sustain in a halfway rehab and allow manager social to help her for longer term planning, repeatedly going home with family to failed maintain her status at home and failed her care at home as well. She returned to the emergency department at [facility] this time after found by the visiting nurse to have significant hypotension not feeling well and having mild hypoxia. Ended up coming to the emergency department no family found with her at the time [facility] showed mildly elevated troponin, patient is debilitated bedridden had mild change of mental status with elevated troponin the current condition patient was hospitalized. Troponin was elevated, kidney function slightly bit worse, patient had mild anemia, and I wouldn't be surprised patient had sepsis as well this time. Also found to have stage IV decub in the sacral area measure 0.51 cm with depth of 1 cm with significant drainage. [facility]: To notify the family that possible blood culture was done through the last visit to the emergency room last few days but no information of what kind of germ was found that time. 12/09:She has been seen by cardiology for elevated troponins of unclear etiology , possibly related to oxygen supply demand mismatch with hypoxia on admission and possibly related to acute anemia. Echocardiogram has been ordered and all antihypertensives have been on hold, heparin discontinued. Patient has also been seen by Dr. Lory Viera and there are currently no plans for endoscopy intervention. She will review the endoscopy reports from [facility]. [facility] urine culture from last week has been finalized with VRE and blood culture is gram-positive cocci. Repeat blood culture done here is showing no growth at 24 hours. Cultures from the decubitus ulcer are in progress. Patient has been seen by Dr. Clifford and antibiotics have been changed to daptomycin and Rocephin. Local wound care is the form of therahoney. Nystatin/Kenalog added for anal ulcer with yeast. TSH and free T4 will be ordered. retail branch manager is working on [facility]. Apparently is not able to take care of the patient home. Objective - Vital Signs Vital signs: Vital Signs Temp 97.8 F 12/09/17 09:00 Pulse 82 12/09/17 11:46 Resp 16 12/09/17 11:46 BP 129/63 12/09/17 09:00 Pulse Ox 93 L 12/09/17 09:00 Intake & Output 12/08/17 12/09/17 12/09/17 18:59 06:59 18:59 Intake Total 1740 240 Output Total 800 1600 Balance 940 -1360 Weight 55 kg 55 kg Intake: Intake, IV Titration 1500 Amount Sodium Chloride 0.9% 1, 1500 000 ml @ 100 mls/hr IV . Q10H [facility] Rx#:[id number] Oral 240 240 Output: Urine 800 1600 Uretheral (Arceo) 1600 Other: Voiding Method Indwelling Catheter Indwelling Catheter Indwelling Catheter # Bowel Movements 1 2 - Exam General Appearance: Alert, slightly confused in mild respiratory distress Neck HEENT: Supple, no lymphadenopathy, no thyroid enlargement, no carotid bruits. Lungs: Decreased breath sound bilaterally fine rhonchi mild expiratory wheezes. Chest Wall: Decreased expansion with deep inspiration bilaterally worse on the left on the right side with mild rhonchi and positive expiratory wheezes.. Heart: Regular rate and rhythm, S1, S2 normal, no murmur, rub or gallop. Back: Decubitus in the sacral area measuring 11 with depth of 1 cm looks like stage IV sacral area. Abdomen: Soft slight discomfort in the epigastric area with significant yeast infection in the lower part extending into the groin area bilaterally. Extremities: Extremities normal, atraumatic, no cyanosis or edema. Pulses: 2+ and symmetric. Skin: Skin color, texture, tugor normal, no rashes or lesions. Neurologic: Alert slightly confused moving all her 4 extremity has generalized weakness no focal deficit also had mild resting tremor. - Labs CBC & Chem 7: 07/31/18 05:27 12/10/17 05:27 Labs: Abnormal Lab Results - Last 24 Hours (Table) 12/09/17 12/09/17 Range/Units 06:02 06:02 RBC 2.39 L (3.80-5.40) m/uL Hgb 7.4 L (11.4-16.0) gm/dL Hct 24.3 L (34.0-46.0) % MCV 101.6 H (80.0-100.0) fL MCHC 30.6 L (31.0-37.0) g/dL RDW 17.1 H (11.5-15.5) % Lymphocytes # (Manual) 0.55 L (1.0-4.8) k/uL Myelocytes # (Manual) 0.04 H (0) k/uL Chloride 116 H (98-107) mmol/L Carbon Dioxide 21 L (22-30) mmol/L Calcium 7.5 L (8.4-10.2) mg/dL Total Bilirubin <0.1 L (0.2-1.3) mg/dL ALT 59 H (9-52) U/L Total Protein 4.4 L (6.3-8.2) g/dL Albumin 2.3 L (3.5-5.0) g/dL Microbiology - Last 24 Hours (Table) 12/08/17 14:50 Urine Culture - Preliminary Urine,Catheterized 12/08/17 11:00 Gram Stain - Preliminary Buttock Wound Culture - Preliminary 12/07/17 15:33 Urine Culture - Preliminary Urine,Catheterized Group D Enterococcus 12/08/17 11:00 Anaerobic Culture - Preliminary Buttock 12/07/17 12:25 Blood Culture - Preliminary Blood No Growth after 24 hours Assessment and Plan Plan: 1. Elevated troponin secondary to oxygen supply demand mismatch with hypoxia on admission and acute anemia. Cardiology consult is appreciated. No plan for any further cardiac workup. Echocardiogram was reviewed from [facility] that showed EF of 55-60%. 2. Acute hypoxic respiratory failure of unclear etiology possibly due to anemia , improved. Continue oxygen supplementation, Symbicort 2 puffs twice daily, home urinary on consult. No sign of heart failure. 3. Metabolic encephalopathy secondary to sepsis, hypoxia in a patient with history of seizure disorder. Patient appears to be back to baseline. Continue Keppra 500 mg every [address] Sarkar. 4. Sepsis secondary to VRE urinary tract infection. Consult with Dr. Clifford is appreciated. Antibiotics have been changed to Rocephin and daptomycin according to culture from [facility]. 5. Possible bacteremia with positive blood culture done at [facility]. Await final report 6. Stage IV sacral ulcer, present on admission. Consult with Dr. Clifford appreciated. Continue Rocephin and daptomycin. Local wound care with Janine. Wound cultures are in progress. 7. Anemia of unclear etiology, possibly of chronic disease. Appears to be no acute blood loss. Consult with Dr. Barnes appreciated. Patient had recent colonoscopy done at [facility] which will be reviewed by Dr. Barnes. Monitor hemoglobin. No plan for transfusion until less than 7. Patient' s baseline hemoglobin appears to be around 9.6. Stool for occult blood was negative. 8. History of colorectal cancer, should watch Hemoccult and watch for any further bleed. Patient is not taking currently any anticoagulation. 9. Diarrhea chronic for greater than 3 months. C. difficile toxin negative. Patient will be started on Imodium which has helped in the past. 10. Chronic pain syndrome. 7 chronic pain syndrome: Patient has been on Percocet along with muscle relaxer which is baclofen in the past reduce the dose slightly. 8 debility: Not been able to ambulate and walk with significant generalized weakness, will consult manager social and further need and help should have meeting with the family to discuss further planning because specially with the failure to do physical therapy at [facility] I doubted that patient will be able to go back to do any short term rehab and halfway. Patient might benefit from longer term planning for either placement in assisted living or adult foster home or long-term halfway. 9 hypertension: Has been on losartan 50 mg a day along with atenolol 25 mg daily continue both medication. 10 hyperlipidemia: Has been on pravastatin 80 mg daily. 11 seizure: Patient is on Keppra 500 mg twice a day and the on add of her altered mental status related to seizure specially she is not using her medication regularly still a possibility. 12 chronic depression: Patient has been on Cymbalta 60 mg twice a day along with BuSpar 15 mg daily. 13 hypothyroidism: Continue levothyroxine at 25 g daily. 14 acute kidney injury: With stage III chronic kidney disease, continue to hydrate patient gently and watch her BUN/creatinine. CODE STATUS: Full code. [facility] Imp[facility] and plan of care have been directed as dictated by the signing physician. Louisa Edmond nurse practitioner acting as scribe for signing physician.
--- NOTE | 2017-12-10 10:50 | P.PN ---
Subjective Progress Note Date: 12/10/17 Principal diagnosis: Chronic diarrhea anemia 2 moderate loose nonbloody bowel movements this morning. No bleeding. Hemoglobin 8.1. C. diff negative. Stool occult blood negative. Objective - Vital Signs Vital signs: Vital Signs Temp 97.6 F 12/10/17 09:10 Pulse 77 12/10/17 09:10 Resp 16 12/10/17 09:10 BP 168/75 12/10/17 09:10 Pulse Ox 94 L 12/10/17 09:10 Intake & Output 12/09/17 12/10/17 12/10/17 18:59 06:59 18:59 Intake Total 180 120 Output Total 950 2401 1 Balance -770 -2281 -1 Weight 55 kg 54.5 kg Intake: Oral 180 120 Output: Urine 950 2400 Uretheral (Arceo) 2400 Stool 1 1 Other: Voiding Method Indwelling Catheter Indwelling Catheter Indwelling Catheter # Bowel Movements 2 1 - Exam General appearance: The patient is alert, oriented, in no acute distress. HET: Head is normocephalic and atraumatic. Pupils are equal and reactive. Oropharynx is clear without lesions. Neck: Supple without lymphadenopathy. Trachea midline. Heart: S1 S2. Regular rate and rhythm. Lungs: No crackles or wheezes are heard. Abdomen: Soft, nontender, nondistended with bowel sounds. No peritoneal signs. No palpable organomegaly or masses. - Labs CBC & Chem 7: 12/10/17 05:27 12/10/17 05:27 Labs: Abnormal Lab Results - Last 24 Hours (Table) 12/09/17 12/09/17 12/09/17 Range/Units 06:02 06:02 16:12 RBC (3.80-5.40) m/uL Hgb (11.4-16.0) gm/dL Hct (34.0-46.0) % MCHC (31.0-37.0) g/dL RDW (11.5-15.5) % Lymphocytes # (Manual) (1.0-4.8) k/uL Metamyelocytes # (Man) (0) k/uL Myelocytes # (Manual) (0) k/uL Chloride (98-107) mmol/L Carbon Dioxide (22-30) mmol/L POC Glucose (mg/dL) 100 H (75-99) mg/dL Calcium (8.4-10.2) mg/dL Iron 13 L (50-170) ug/dL TIBC 220 L (228-460) ug/dL Iron Saturation 5.91 L (12.00-45.00) Total Bilirubin (0.2-1.3) mg/dL ALT (9-52) U/L Total Protein (6.3-8.2) g/dL Albumin (3.5-5.0) g/dL TSH 0.349 L (0.465-4.680) mIU/L 12/10/17 12/10/17 Range/Units 05:27 05:27 RBC 2.73 L (3.80-5.40) m/uL Hgb 8.1 L (11.4-16.0) gm/dL Hct 26.8 L (34.0-46.0) % MCHC 30.1 L (31.0-37.0) g/dL RDW 16.6 H (11.5-15.5) % Lymphocytes # (Manual) 0.47 L (1.0-4.8) k/uL Metamyelocytes # (Man) 0.04 H (0) k/uL Myelocytes # (Manual) 0.08 H (0) k/uL Chloride 116 H (98-107) mmol/L Carbon Dioxide 20 L (22-30) mmol/L POC Glucose (mg/dL) (75-99) mg/dL Calcium 8.0 L (8.4-10.2) mg/dL Iron (50-170) ug/dL TIBC (228-460) ug/dL Iron Saturation (12.00-45.00) Total Bilirubin 0.1 L (0.2-1.3) mg/dL ALT 53 H (9-52) U/L Total Protein 4.8 L (6.3-8.2) g/dL Albumin 2.6 L (3.5-5.0) g/dL TSH (0.465-4.680) mIU/L Microbiology - Last 24 Hours (Table) 12/08/17 14:50 Urine Culture - Preliminary Urine,Catheterized Group D Enterococcus 12/07/17 12:25 Blood Culture - Preliminary Blood No Growth after 48 hours Assessment and Plan (1) Chronic diarrhea Current Visit: Yes Status: Acute Code(s): K52.9 - NONINFECTIVE GASTROENTERITIS AND COLITIS, UNSPECIFIED SNOMED Code(s): 312405434 (2) Symptomatic anemia Current Visit: Yes Status: Acute Code(s): D64.9 - ANEMIA, UNSPECIFIED SNOMED Code(s): 484086484 (3) Iron deficiency anemia Current Visit: Yes Status: Acute Code(s): D50.9 - IRON DEFICIENCY ANEMIA, UNSPECIFIED SNOMED Code(s): 67933522 Plan: 1. Colonoscopy report reviewed from [facility] performed on by Dr. Ferro for evaluation of bright red blood per rectum; exam within normal limits biopsies not obtained. Bleeding possibly related to superficial fissure or some reversible perianal irritation perhaps related to her diarrhea. 2. Change when necessary to scheduled Imodium 2 mg 4 times daily. We'll reevaluate. Assessment and plan a care discussed with Dr. Viera
--- NOTE | 2017-12-10 11:10 | P.PN ---
Subjective Progress Note Date: 12/10/17 Principal diagnosis: Transient hypoxemia, recovered, altered mentation, recovered, acute urinary tract infection This is a 72-year-old female patient with previous history of colorectal cancer in addition to COPD, recurrent UTIs, depression and hypothyroidism who was residing at [facility] after being admitted to [facility] and transferred to [facility] was essentially to undergo rehabilitation. The patient declined the treatment and she she ultimately did not finish her rehabilitation and she went home and within 2 days she was readmitted to [facility]. During this current admission, the patient is found to have a 1 x 1 cm stage IV sacral decub ulceration with active drainage in addition to significant skin excoriation within the medial aspect of the buttock cheek with significant erythema and skin erosion and sloughing in addition to purulent material covering the skin surface. No fever. No chills. She was noted to be short of breath and it was reported by the burst department the patient was hypoxic with a pulse ox of 80% at a time of admission patient was also found to be in acute kidney injury with a creatinine of 1.3 at the time of admission. At time of my evaluation, the patient was resting comfortably in bed and pulse ox was 97% on room air. She denied having any respiratory distress. No cough sputum production chest tightness or wheezing. No pleurisy or hemoptysis. No reported aspiration. No chest pain or angina. No significant swelling in the lower extremities. She is able to answers questions appropriately. She is quite debilitated and she is unable to walk independently and she moves around with the help of a walker. She does minimal amount of work and she is help for activities of daily today life. I noted that her renal function is improved and normalized with IV fluids. She is chronically anemic. However, it was noted that hemoglobin dropped from a baseline of 10.3 down to 7.4. No signs of any GI bleeding. She was having loose liquidy bowel movements and the stool for C. diff has been negative. Stool for occult blood is also negative. On 12/10/2017 patient seen in follow-up on selective care unit. She is not requiring supplemental oxygen, room air pulse ox is 94%, she denies any pulmonary complaints, no dyspnea, no cough, no chest congestion. Lung sounds are positive for coarse bilateral basilar rales, she is mostly bedbound, she has a chronic shortness on her coccyx, she is compliant with her incentive spirometry, although she needs encouragement. Incentive spirometer effort today 's 500-750 ML. Afebrile, hemodynamically stable, urine culture showed group D enterococcus, final culture is pending, wound cultures are pending. Cultures show no growth at the 48 hour goldie. He service is following, and the patient remains on Rocephin, and daptomycin. His labs were reviewed, no leukocytosis, she is 3.9, hemoglobin is 8.1, sodium is 140, potassium is 4.9, chloride is 116 , CO2 is 20, renal profile is normal. Objective - Vital Signs Vital signs: Vital Signs Temp 97.6 F 12/10/17 09:10 Pulse 77 12/10/17 09:10 Resp 16 12/10/17 09:10 BP 168/75 12/10/17 09:10 Pulse Ox 94 L 12/10/17 09:10 Intake & Output 12/09/17 12/10/17 12/10/17 18:59 06:59 18:59 Intake Total 180 120 Output Total 950 2401 1 Balance -770 -2281 -1 Weight 55 kg 54.5 kg Intake: Oral 180 120 Output: Urine 950 2400 Uretheral (Arceo) 2400 Stool 1 1 Other: Voiding Method Indwelling Catheter Indwelling Catheter Indwelling Catheter # Bowel Movements 2 1 - Exam General Appearance: Alert, slightly confused , currently on room air oxygen and there is no apparent signs of any respiratory distress for now. Neck HEENT: Supple, no lymphadenopathy, no thyroid enlargement, no carotid bruits. Lungs: Decreased breath sound bilaterally fine rhonchi Chest Wall: Equal breath sounds bilaterally Heart: Regular rate and rhythm, S1, S2 normal, no murmur, rub or gallop. Back: Decubitus in the sacral area measuring 11 with depth of 1 cm looks like stage IV sacral area. Abdomen: Soft slight discomfort in the epigastric area with significant yeast infection in the lower part extending into the groin area bilaterally. Extremities: Extremities normal, atraumatic, no cyanosis or edema. Pulses: 2+ and symmetric. Skin: Skin color, texture, tugor normal, no rashes or lesions. Stage IV sacral decub ulceration 1 x 1 cm in addition to extensive skin erosion and erythema along with superficial purulent material covering the surface wound along the medial aspect of the gluteus Neurologic: Alert slightly confused moving all her 4 extremity has generalized weakness no focal deficit also had mild resting tremor. - Labs CBC & Chem 7: 12/10/17 05:27 12/10/17 05:27 Labs: Abnormal Lab Results - Last 24 Hours (Table) 12/09/17 12/09/17 12/09/17 Range/Units 06:02 06:02 16:12 RBC (3.80-5.40) m/uL Hgb (11.4-16.0) gm/dL Hct (34.0-46.0) % MCHC (31.0-37.0) g/dL RDW (11.5-15.5) % Lymphocytes # (Manual) (1.0-4.8) k/uL Metamyelocytes # (Man) (0) k/uL Myelocytes # (Manual) (0) k/uL Chloride (98-107) mmol/L Carbon Dioxide (22-30) mmol/L POC Glucose (mg/dL) 100 H (75-99) mg/dL Calcium (8.4-10.2) mg/dL Iron 13 L (50-170) ug/dL TIBC 220 L (228-460) ug/dL Iron Saturation 5.91 L (12.00-45.00) Total Bilirubin (0.2-1.3) mg/dL ALT (9-52) U/L Total Protein (6.3-8.2) g/dL Albumin (3.5-5.0) g/dL TSH 0.349 L (0.465-4.680) mIU/L 12/10/17 12/10/17 Range/Units 05:27 05:27 RBC 2.73 L (3.80-5.40) m/uL Hgb 8.1 L (11.4-16.0) gm/dL Hct 26.8 L (34.0-46.0) % MCHC 30.1 L (31.0-37.0) g/dL RDW 16.6 H (11.5-15.5) % Lymphocytes # (Manual) 0.47 L (1.0-4.8) k/uL Metamyelocytes # (Man) 0.04 H (0) k/uL Myelocytes # (Manual) 0.08 H (0) k/uL Chloride 116 H (98-107) mmol/L Carbon Dioxide 20 L (22-30) mmol/L POC Glucose (mg/dL) (75-99) mg/dL Calcium 8.0 L (8.4-10.2) mg/dL Iron (50-170) ug/dL TIBC (228-460) ug/dL Iron Saturation (12.00-45.00) Total Bilirubin 0.1 L (0.2-1.3) mg/dL ALT 53 H (9-52) U/L Total Protein 4.8 L (6.3-8.2) g/dL Albumin 2.6 L (3.5-5.0) g/dL TSH (0.465-4.680) mIU/L Microbiology - Last 24 Hours (Table) 12/08/17 14:50 Urine Culture - Preliminary Urine,Catheterized Group D Enterococcus 12/07/17 12:25 Blood Culture - Preliminary Blood No Growth after 48 hours Assessment and Plan Plan: Assessment: 1 transient hypoxemia, recovered and the patient is currently on room air oxygen with her pulse ox above 94% and the patient denies having any respiratory distress. Chest x-ray on admission is within normal limits. No signs of pneumonia. No signs of aspiration. Pulmonary embolism is doubtful especially with the improvement in her oxidation that was seen over the past 24 hours. 2 altered mentation, recovered and the patient seems to be much more alert compared to yesterday 3 acute kidney injury, recovered and the renal function is normalized 4 history of recurrent urine checked infection with E. coli and Keri. Rule out recurrent urine checked infection and based on that urine cultures of been sent and the results are still pending. 5 sacral decub stage IV in addition to superficial skin excoriation/cellulitis along the medial aspect of the gluteus , bilaterally 6 chronic pain 7 depression 8 debility with difficulty with mobility and ambulation and the patient needs help with activities of daily today life and the patient was residing in [facility] 9 hypertension 10 hyperlipidemia 11 seizure disorder 12 hypothyroidism 13 troponin leak, nonspecific finding, awaiting cardiology evaluation. Plan: Patient remains stable from pulmonary standpoint, denies any pulmonary complaints, no shortness of breath, no cough, no wheezing, patient. She is on room air, chest x-ray was within normal limits. Vital signs are stable, no evidence of altered mentation, kidney function has recovered. We will see the patient on as-needed basis. Thank you for this consultation. I performed a history & physical examination of the patient and discussed their management with my nurse practitioner, Rosa Lan. I reviewed the nurse practitioner's note and agree with the documented findings and plan of care. Lung sounds are positive for bibasilar crackles. The findings and the impression was discussed with the patient. I attest to the documentation by the nurse practitioner. Time with Patient: Less than 30
[2017-12-10] MEDS: LOPERAMIDE 2 MG CAP PO SCH ×3 (11:28→22:34)
--- NOTE | 2017-12-10 14:21 | P.PN ---
Subjective Progress Note Date: 12/10/17 72-year-old female one of Dr. Delaney's patient is known to have history of colorectal cancer, recurrent UTI, COPD from chronic smoking, depression, hypothyroidism who was hospitalized at [facility] twice in the last 4 weeks and was transferred to [facility] rehab and apparently refused to do physical therapy and rehab was discharged home sometimes last week ended up at the emergency department at [facility] the same night no major finding was discharged home to return to the emergency room one more time at [facility] with similar circumstances with no finding again for the second time the patient ended up being discharged home from the ER and agree to be taking care of by family. Patient repeatedly keeps claiming that her family are not giving her medication once taking care of her and such despite the failure to maintain and sustain in a alf rehab and allow social work job titles to help her for longer term planning, repeatedly going home with family to failed maintain her status at home and failed her care at home as well. She returned to the emergency department at [facility] this time after found by the visiting nurse to have significant hypotension not feeling well and having mild hypoxia. Ended up coming to the emergency department no family found with her at the time her workup [facility] showed mildly elevated troponin, patient is debilitated bedridden had mild change of mental status with elevated troponin the current condition patient was hospitalized. Troponin was elevated, kidney function slightly bit worse, patient had mild anemia, and I wouldn't be surprised patient had sepsis as well this time. Also found to have stage IV decub in the sacral area measure 0.51 cm with depth of 1 cm with significant drainage. [facility]: To notify the family that possible blood culture was done through the last visit to the emergency room last few days but no information of what kind of germ was found that time. 12/09:She has been seen by cardiology for elevated troponins of unclear etiology , possibly related to oxygen supply demand mismatch with hypoxia on admission and possibly related to acute anemia. Echocardiogram has been ordered and all antihypertensives have been on hold, heparin discontinued. Patient has also been seen by Dr. Lory Viera and there are currently no plans for endoscopy intervention. She will review the endoscopy reports from [facility]. [facility] urine culture from last week has been finalized with VRE and blood culture is gram-positive cocci. Repeat blood culture done here is showing no growth at 24 hours. Cultures from the decubitus ulcer are in progress. Patient has been seen by Dr. Clifford and antibiotics have been changed to daptomycin and Rocephin. Local wound care is the form of therahoney. Nystatin/Kenalog added for anal ulcer with yeast. TSH and free T4 will be ordered. veterinary manager is working on discharge planning to [facility]. Apparently is not able to take care of the patient home. 12/10: Patient has been afebrile. Vital signs are stable. Pulse ox is 94% on room air. White count is normal, hemoglobin increased to 8.1. Imodium has been changed to scheduled. Protein supplement 3 times daily. Patient states that she has had 2 bowel movements today. PT has recommended subacute rehab. We will plan for discharge to [facility] tomorrow. Dr. Wisdom to clarify antibiotics. We are waiting for one blood culture from [facility] that was positive for gram-positive cocci. Objective - Vital Signs Vital signs: Vital Signs Temp 97.6 F 12/10/17 09:10 Pulse 77 12/10/17 09:10 Resp 16 12/10/17 09:10 BP 168/75 12/10/17 09:10 Pulse Ox 94 L 12/10/17 09:10 Intake & Output 12/09/17 12/10/17 12/10/17 18:59 06:59 18:59 Intake Total 180 120 Output Total 950 2401 Balance -770 -2281 Weight 55 kg 54.5 kg Intake: Oral 180 120 Output: Urine 950 2400 Uretheral (Arceo) 2400 Stool 1 Other: Voiding Method Indwelling Catheter Indwelling Catheter # Bowel Movements 2 1 - Exam General Appearance: Alert, slightly confused in mild respiratory distress Neck HEENT: Supple, no lymphadenopathy, no thyroid enlargement, no carotid bruits. Lungs: Decreased breath sound bilaterally fine rhonchi mild expiratory wheezes. Chest Wall: Decreased expansion with deep inspiration bilaterally worse on the left on the right side with mild rhonchi and positive expiratory wheezes.. Heart: Regular rate and rhythm, S1, S2 normal, no murmur, rub or gallop. Back: Decubitus in the sacral area measuring 11 with depth of 1 cm looks like stage IV sacral area. Abdomen: Soft slight discomfort in the epigastric area with significant yeast infection in the lower part extending into the groin area bilaterally. Extremities: Extremities normal, atraumatic, no cyanosis or edema. Pulses: 2+ and symmetric. Skin: Skin color, texture, tugor normal, no rashes or lesions. Neurologic: Alert slightly confused moving all her 4 extremity has generalized weakness no focal deficit also had mild resting tremor. - Labs CBC & Chem 7: 12/10/17 05:27 12/10/17 05:27 Labs: Abnormal Lab Results - Last 24 Hours (Table) 12/09/17 12/09/17 12/09/17 Range/Units 06:02 06:02 16:12 RBC (3.80-5.40) m/uL Hgb (11.4-16.0) gm/dL Hct (34.0-46.0) % MCHC (31.0-37.0) g/dL RDW (11.5-15.5) % Lymphocytes # (Manual) (1.0-4.8) k/uL Metamyelocytes # (Man) (0) k/uL Myelocytes # (Manual) (0) k/uL Chloride (98-107) mmol/L Carbon Dioxide (22-30) mmol/L POC Glucose (mg/dL) 100 H (75-99) mg/dL Calcium (8.4-10.2) mg/dL Iron 13 L (50-170) ug/dL TIBC 220 L (228-460) ug/dL Iron Saturation 5.91 L (12.00-45.00) Total Bilirubin (0.2-1.3) mg/dL ALT (9-52) U/L Total Protein (6.3-8.2) g/dL Albumin (3.5-5.0) g/dL TSH 0.349 L (0.465-4.680) mIU/L 12/10/17 12/10/17 Range/Units 05:27 05:27 RBC 2.73 L (3.80-5.40) m/uL Hgb 8.1 L (11.4-16.0) gm/dL Hct 26.8 L (34.0-46.0) % MCHC 30.1 L (31.0-37.0) g/dL RDW 16.6 H (11.5-15.5) % Lymphocytes # (Manual) 0.47 L (1.0-4.8) k/uL Metamyelocytes # (Man) 0.04 H (0) k/uL Myelocytes # (Manual) 0.08 H (0) k/uL Chloride 116 H (98-107) mmol/L Carbon Dioxide 20 L (22-30) mmol/L POC Glucose (mg/dL) (75-99) mg/dL Calcium 8.0 L (8.4-10.2) mg/dL Iron (50-170) ug/dL TIBC (228-460) ug/dL Iron Saturation (12.00-45.00) Total Bilirubin 0.1 L (0.2-1.3) mg/dL ALT 53 H (9-52) U/L Total Protein 4.8 L (6.3-8.2) g/dL Albumin 2.6 L (3.5-5.0) g/dL TSH (0.465-4.680) mIU/L Microbiology - Last 24 Hours (Table) 12/08/17 14:50 Urine Culture - Preliminary Urine,Catheterized Group D Enterococcus 12/07/17 12:25 Blood Culture - Preliminary Blood No Growth after 48 hours Assessment and Plan Plan: 1. Elevated troponin secondary to oxygen supply demand mismatch with hypoxia on admission and acute anemia. Cardiology consult is appreciated. No plan for any further cardiac workup. Echocardiogram was reviewed from [facility] that showed EF of 55-60%. 2. Acute hypoxic respiratory failure of unclear etiology possibly due to anemia , improved. Continue oxygen supplementation, Symbicort 2 puffs twice daily, home urinary on consult. No sign of heart failure. 3. Metabolic encephalopathy secondary to sepsis, hypoxia in a patient with history of seizure disorder. Patient appears to be back to baseline. Continue Keppra 500 mg every [address] Sarkar. 4. Sepsis secondary to VRE urinary tract infection. Consult with Dr. Clifford is appreciated. Antibiotics have been changed to Rocephin and daptomycin according to culture from [facility]. 5. Possible bacteremia with positive blood culture done at [facility]. Await final report 6. Stage IV sacral ulcer and stage II at the perianal opening, present on admission. Consult with Dr. Clifford appreciated. Continue Rocephin and daptomycin. Local wound care with Therahoney. Wound cultures are in progress. 7. Anemia of unclear etiology, possibly of chronic disease. Appears to be no acute blood loss. Consult with Dr. Barnes appreciated. Patient had recent colonoscopy done at [facility] which will be reviewed by Dr. Barnes. Monitor hemoglobin. No plan for transfusion until less than 7. Patient' s baseline hemoglobin appears to be around 9.6. Stool for occult blood was negative. 8. History of colorectal cancer, should watch Hemoccult and watch for any further bleed. Patient is not taking currently any anticoagulation. 9. Diarrhea chronic for greater than 3 months. C. difficile toxin negative. Patient will be started on Imodium which has helped in the past. 10. Chronic pain syndrome. 7 chronic pain syndrome: Patient has been on Percocet along with muscle relaxer which is baclofen in the past reduce the dose slightly. 8 debility: Not been able to ambulate and walk with significant generalized weakness, will consult social work job titles and further need and help should have meeting with the family to discuss further planning because specially with the failure to do physical therapy at [facility] I doubted that patient will be able to go back to do any short term rehab and alf. Patient might benefit from longer term planning for either placement in assisted living or adult foster home or long-term alf. 9 hypertension: Has been on losartan 50 mg a day along with atenolol 25 mg daily continue both medication. 10 hyperlipidemia: Has been on pravastatin 80 mg daily. 11 seizure: Patient is on Keppra 500 mg twice a day and the on add of her altered mental status related to seizure specially she is not using her medication regularly still a possibility. 12 chronic depression: Patient has been on Cymbalta 60 mg twice a day along with BuSpar 15 mg daily. 13 hypothyroidism: Continue levothyroxine at 25 g daily. 14 acute kidney injury: With stage III chronic kidney disease, continue to hydrate patient gently and watch her BUN/creatinine. CODE STATUS: Full code. [facility] Impression and plan of care have been directed as dictated by the signing physician. Louisa Edmond nurse practitioner acting as scribe for signing physician.
--- NOTE | 2017-12-10 14:37 | P.PN ---
Subjective Progress Note Date: 12/10/17 Mrs. Mendoza is a pleasant 72-year-old female past medical history significant for hypertension, peripheral vascular disease status post stenting, details unknown at this time. History of CVA in the past. Patient was recently admitted to [facility] for approximately 3 weeks and then sent to [facility] for rehab. She states she was trying to get into bed and her family called EMS. She was really unsure on this admission Y she was here. Cardiology was asked to see the patient because of abnormal troponin. Her EKG on admission revealed diffuse T-wave abnormalities in the inferior anterior lateral leads. Laboratory data, hemoglobin 7.4 today, platelet count 331. Sodium 141, potassium 4.8, BUN 12, creatinine 0.8. Blood pressure today 114/60 with a heart rate in the 70s. Echocardiogram with Doppler study remains pending. Patient was seen and examined this morning, still feeling weak. No other complaints. 12/10/2017 Patient seen and examined this morning,TERRI dynamically stable, blood pressure 150/60 heart rate in the 60s, 96% on room air.cardiac gram with Doppler study revealed a normal left ventricular systolic function. From cardiology's perspective, we'll follow this patient along with you now on an as-needed basis only, please don't hesitate to call with any questions. Objective - Vital Signs Vital signs: Vital Signs Temp 97.6 F 12/10/17 09:10 Pulse 65 12/10/17 11:30 Resp 16 12/10/17 11:32 BP 150/65 12/10/17 11:30 Pulse Ox 96 12/10/17 11:30 Intake & Output 12/09/17 12/10/17 12/10/17 18:59 06:59 18:59 Intake Total 180 120 Output Total 950 2401 403 Balance -770 -2281 -403 Weight 55 kg 54.5 kg Intake: Oral 180 120 Output: Urine 950 2400 400 Uretheral (Arceo) 2400 Stool 1 3 Other: Voiding Method Indwelling Catheter Indwelling Catheter Indwelling Catheter # Bowel Movements 2 1 1 - Exam Blood pressure 88/51 heart rate 75 afebrile maintaining oxygen saturation on nasal cannula GENERAL: This is a 72-year-old female in no apparent distress at the time of my examination. Frail. HEENT: Head is atraumatic, normocephalic. Pupils are equal, round. Sclerae anicteric. Conjunctivae are clear. Mucous membranes of the mouth are moist. Neck is supple. There is no jugular venous distention. No carotid bruit is heard. LUNGS: Clear to auscultation no wheezes, rales or rhonchi. No chest wall tenderness is noted on palpation or with deep breathing. HEART: Regular rate and rhythm without murmurs, rubs or gallops. S1 and S2 heard. Distant heart sounds. ABDOMEN: Soft, nontender. Bowel sounds are heard. No organomegaly noted. EXTREMITIES: No evidence of peripheral edema and no calf tenderness noted. VASCULAR: Radial and dorsalis pedis pulses palpated, no evidence of clubbing. NEUROLOGIC: Patient is awake, alert and oriented x3. - Labs CBC & Chem 7: 12/10/17 05:27 12/10/17 05:27 Labs: Abnormal Lab Results - Last 24 Hours (Table) 12/09/17 12/09/17 12/09/17 Range/Units 06:02 06:02 16:12 RBC (3.80-5.40) m/uL Hgb (11.4-16.0) gm/dL Hct (34.0-46.0) % MCHC (31.0-37.0) g/dL RDW (11.5-15.5) % Lymphocytes # (Manual) (1.0-4.8) k/uL Metamyelocytes # (Man) (0) k/uL Myelocytes # (Manual) (0) k/uL Chloride (98-107) mmol/L Carbon Dioxide (22-30) mmol/L POC Glucose (mg/dL) 100 H (75-99) mg/dL Calcium (8.4-10.2) mg/dL Iron 13 L (50-170) ug/dL TIBC 220 L (228-460) ug/dL Iron Saturation 5.91 L (12.00-45.00) Total Bilirubin (0.2-1.3) mg/dL ALT (9-52) U/L Total Protein (6.3-8.2) g/dL Albumin (3.5-5.0) g/dL TSH 0.349 L (0.465-4.680) mIU/L 12/10/17 12/10/17 Range/Units 05:27 05:27 RBC 2.73 L (3.80-5.40) m/uL Hgb 8.1 L (11.4-16.0) gm/dL Hct 26.8 L (34.0-46.0) % MCHC 30.1 L (31.0-37.0) g/dL RDW 16.6 H (11.5-15.5) % Lymphocytes # (Manual) 0.47 L (1.0-4.8) k/uL Metamyelocytes # (Man) 0.04 H (0) k/uL Myelocytes # (Manual) 0.08 H (0) k/uL Chloride 116 H (98-107) mmol/L Carbon Dioxide 20 L (22-30) mmol/L POC Glucose (mg/dL) (75-99) mg/dL Calcium 8.0 L (8.4-10.2) mg/dL Iron (50-170) ug/dL TIBC (228-460) ug/dL Iron Saturation (12.00-45.00) Total Bilirubin 0.1 L (0.2-1.3) mg/dL ALT 53 H (9-52) U/L Total Protein 4.8 L (6.3-8.2) g/dL Albumin 2.6 L (3.5-5.0) g/dL TSH (0.465-4.680) mIU/L Microbiology - Last 24 Hours (Table) 12/08/17 14:50 Urine Culture - Preliminary Urine,Catheterized Group D Enterococcus 12/07/17 12:25 Blood Culture - Preliminary Blood No Growth after 48 hours Assessment and Plan Plan: ASSESSMENT #1 Elevated troponin of unclear etiology, possibly related to oxygen supply demand mismatch with hypoxia on admission. May also be related to acute anemia with 3 gram blood loss in 24 hours. #2 EKG abnormalities, unknown if acute or chronic with no old EKG for comparison #3 Hypoxia on admission, pulse ox saturation in 80's #4 Anemia, unknown etiology. Denies any acute blood loss. Has history of rectal cancer. #5 Hypertension, currently hypotensive. #6 Acute sepsis, positive blood cultures per family from [facility] recently. #7 Dyslipidemia #8 Peripheral vascular disease s/p stenting per the patient this occurred 5 weeks ago #9 Chronic kidney disease Plan From Cardiology's perspective, we'll continue patient on current medications.we will follow this patient along with you now on an as-needed basis only, please hesitate to call with any questions. DNP note has been reviewed, I agree with a documented findings and plan of care. Patient was seen and examined.
--- NOTE | 2017-12-10 17:04 | P.PN ---
Subjective Progress Note Date: 12/10/17 Patient is a pleasant 72-year-old female who is being followed by the neurology service for seizures. Patient was brought to [facility] after visiting nurse noticed that she was quite fatigued and having hypotension and mild hypoxia. Patient is bedridden and, on presentation to the emergency room, was found to have a stage IV decubitus ulcer in the sacral region. Patient was admitted and lab work was done. Patient had elevated troponins and cardiology was consulted. Patient also was found to have a urinary tract infection which is currently being treated with antibiotics. Patient does have history of epilepsy which she has had for several years. Her epilepsy has been well controlled on Keppra 500 mg twice a day. No seizures have been reported since admission. Patient does have chronic tremor of both upper extremities. At the time of my evaluation, patient is complaining of inability to get comfortable due to sacral decubitus ulcer. Patient does not appear to be in any acute distress. Objective - Vital Signs Vital signs: Vital Signs Temp 97.9 F 12/10/17 16:00 Pulse 88 12/10/17 16:00 Resp 18 12/10/17 16:00 BP 177/81 12/10/17 16:00 Pulse Ox 93 L 12/10/17 16:00 Intake & Output 12/09/17 12/10/17 12/10/17 18:59 06:59 18:59 Intake Total 180 120 850 Output Total 950 2401 403 Balance -658 -2768 447 Weight 55 kg 54.5 kg Intake: Intake, IV Titration 850 Amount DAPTOmycin 250 mg In 50 Sodium Chloride 0.9% 50 ml @ 100 mls/hr IVPB Q24HR ISAEL Rx#:[id number] Sodium Chloride 0.9% 1, 800 000 ml @ 100 mls/hr IV . Q10H ISAEL Rx#:[id number] Oral 180 120 Output: Urine 950 2400 400 Uretheral (Arceo) 2400 Stool 1 3 Other: Voiding Method Indwelling Catheter Indwelling Catheter Indwelling Catheter # Bowel Movements 2 1 1 - Exam PHYSICAL EXAM: GENERAL APPEARANCE: Patient is a well-developed, female who appears to be in no acute distress. HEENT: Normocephalic, atraumatic, no facial asymmetry is seen. Neck is supple with no masses felt. CARDIOVASCULAR: Regular rate and rhythm. ABDOMEN: Nontender, nondistended. EXTREMITIES: Show no edema or clubbing. NEUROLOGICAL EXAM: Patient is awake, alert, and oriented 3. Speech and language are normal. Strength is 4/5 in bilateral lower extremities and 5-/5 in bilateral upper extremities. Postural tremors are seen in bilateral upper extremities. Sensory exam is diminished to light touch in distal lower extremities. No facial asymmetry is seen on cranial nerve testing. No seizure- like activity is noted. - Labs CBC & Chem 7: 12/10/17 05:27 12/10/17 05:27 Labs: Abnormal Lab Results - Last 24 Hours (Table) 12/09/17 12/10/17 12/10/17 Range/Units 06:02 05:27 05:27 RBC 2.73 L (3.80-5.40) m/uL Hgb 8.1 L (11.4-16.0) gm/dL Hct 26.8 L (34.0-46.0) % MCHC 30.1 L (31.0-37.0) g/dL RDW 16.6 H (11.5-15.5) % Lymphocytes # (Manual) 0.47 L (1.0-4.8) k/uL Metamyelocytes # (Man) 0.04 H (0) k/uL Myelocytes # (Manual) 0.08 H (0) k/uL Chloride 116 H (98-107) mmol/L Carbon Dioxide 20 L (22-30) mmol/L Calcium 8.0 L (8.4-10.2) mg/dL Iron 13 L (50-170) ug/dL TIBC 220 L (228-460) ug/dL Iron Saturation 5.91 L (12.00-45.00) Total Bilirubin 0.1 L (0.2-1.3) mg/dL ALT 53 H (9-52) U/L Total Protein 4.8 L (6.3-8.2) g/dL Albumin 2.6 L (3.5-5.0) g/dL Microbiology - Last 24 Hours (Table) 12/08/17 11:00 Anaerobic Culture - Preliminary Buttock 12/08/17 11:00 Gram Stain - Final Buttock Wound Culture - Final 12/07/17 12:25 Blood Culture - Preliminary Blood No Growth after 72 hours 07/29/18 14:50 Urine Culture - Preliminary Urine,Catheterized Group D Enterococcus Assessment and Plan Plan: Impression: 1. History of seizure disorder, on Keppra 2. Altered mental status 3. Infectious and hypoxic encephalopathy 4. Hypotension 5. Elevated cardiac enzymes 6. Urinary tract infection 7. Hypoxia Recommendation: Patient's altered mental status is improving. Staff reports patient is a little more confused at night, however, patient is appropriate during my visit. Her altered mental status most likely due to combination of infectious and hypoxic etiologies. I recommend continuing Keppra 500 mg twice a day. EEG has been done and results are pending. Continue current medical management. I will continue to follow with you. Further recommendations to follow. I performed an examination of the patient and discussed the management with the [employer]. I have reviewed the [employer] notes and agree with the findings and plan of care.
--- NOTE | 2017-12-10 18:32 | EEG ---
ELECTROENCEPHALOGRAM REPORT DATE OF SERVICE: 12/10/2017. REASON FOR TESTING: Seizures. CURRENT ANTI-EPILEPTIC MEDICATIONS: Keppra. DESCRIPTION OF THE PROCEDURE: This EEG was performed using a 21 channel digital electroencephalograph, following international 10-20 system. DESCRIPTION OF THE RECORDING: From the beginning of the tracing, and with patient's eyes closed, the background rhythm was mostly consisting of 8 Hz alpha frequency in the posterior occipital leads. Photic stimulation was performed with a minimal driving response seen. No pathological waves were elicited. Hyperventilation was not performed. No significant artifacts are seen. The patient remains awake throughout the tracing. No epileptiform discharges were seen. Rare movement artifacts are seen. Her EKG lead showed a regular rate and rhythm. INTERPRETATION: This awake EEG can be considered within normal limits. There was no asymmetry seen. No epileptiform discharges were noticed. The absence of epileptiform discharges does not rule out the diagnosis of epilepsy; therefore, clinical correlation is recommended. MMMONIQUEL / IJN: [id number] /
[2017-12-10] MEDS: PRAVASTATIN SODIUM 80 MG TAB PO SCH (22:31)
--- NOTE | 2017-12-10 23:35 | PN ---
PROGRESS NOTE DATE OF SERVICE: 12/10/2017. REASON FOR FOLLOWUP: VRE urinary tract infection. INTERVAL HISTORY: The patient is afebrile. She is breathing comfortably. Denies having any chest pain or cough. No abdominal pain. She is complaining of diarrhea with multiple loose stools. EXAMINATION: Her blood pressure is 177/81 with a pulse of 88, temperature 97.9. She is 93% on room air. General description is a an elderly female, lying in bed in no distress. RESPIRATORY SYSTEM: Unlabored breathing. Clear to auscultation anteriorly. HEART: S1, S2. Regular rate and rhythm. ABDOMEN: Soft. EXTREMITIES: No edema of feet. LABS: Hemoglobin is 8.9, white count of 3.9. BUN of 9, creatinine 0.70. Urine showing VRE. The 2nd culture so far negative. Blood culture negative. DIAGNOSTIC IMPRESSION/PLAN: 1. Patient with vancomycin-resistant Enterococcus urinary tract infection. Patient did have a PENICILLIN allergy, though the organism is sensitive penicillin. Hence, the patient will be continued on daptomycin through a main line for 10 days. 2. Patient with diarrhea. We will add Questran for symptomatic relief. 3. Patient with sacral wound stage III. Local wound care with Aquacel Silver. Keep the area off the pressure. MMODL / IJN: [id number] /
[2017-12-11] MEDS: oxyCODONE-APAP 10-325MG 1 EACH TAB PO PRN ×3 (00:22→20:07)
[2017-12-11] MEDS: SODIUM CHLORIDE 0.9% 1,000 ML IV SCH ×2 (06:06→12:24)
[2017-12-11] MEDS: LEVOTHYROXINE 25 MCG TAB PO SCH (06:38)
[2017-12-11] MEDS: SYMBICORT 160-4.5 MCG INHALER INHALATION SCH (07:59)
--- NOTE | 2017-12-11 08:46 | P.DS ---
Providers Date of admission: 12/07/17 18:25 Expected date of discharge: 12/11/17 Attending physician: Juan Lorenzo Consults: 12/07/17 18:25 Consult Physician Urgent Consulting Provider: Taniya Costa Consult Reason/Comments: Elevated troponin Do you want consulting provider notified?: Yes 12/08/17 08:46 Consult Physician Routine Consulting Provider: Michael Townsend Consult Reason/Comments: COPD Do you want consulting provider notified?: Yes 12/08/17 08:47 Consult Physician Routine Consulting Provider: Lyndsey Sarkar Consult Reason/Comments: Sz and Mental status Do you want consulting provider notified?: Yes 12/08/17 08:48 Consult Physician Routine Consulting Provider: Joanne Wisdom Consult Reason/Comments: Recurrent UTI and sepsis Do you want consulting provider notified?: Yes 12/08/17 08:49 Consult Physician Routine Consulting Provider: Lynn Viera Consult Reason/Comments: GI Bleed. Do you want consulting provider notified?: Yes Primary care physician: Carolyn Delaney Hospital Course: 72-year-old female one of Dr. Delaney's patient is known to have history of colorectal cancer, recurrent UTI, COPD from chronic smoking, depression, hypothyroidism who was hospitalized at [facility] twice in the last 4 weeks and was transferred [facility] and apparently refused to do physical therapy and rehab was discharged home sometimes last week ended up at the emergency department at [facility] the same night no major finding was discharged home to return to the emergency room one more time at [facility] with similar circumstances with no finding again for the second time the patient ended up being discharged home from the ER and agree to be taking care of by family. Patient repeatedly keeps claiming that her family are not giving her medication once taking care of her and such despite the failure to maintain and sustain in a senior living rehab and allow social worker delinquency prevention to help her for longer term planning, repeatedly going home with family to failed maintain her status at home and failed her care at home as well. She returned to the emergency department at [facility] this time after found by the visiting nurse to have significant hypotension not feeling well and having mild hypoxia. Ended up coming to the emergency department no family found with her at the time her workup [facility] showed mildly elevated troponin, patient is debilitated bedridden had mild change of mental status with elevated troponin the current condition patient was hospitalized. Troponin was elevated, kidney function slightly bit worse, patient had mild anemia, and I wouldn't be surprised patient had sepsis as well this time. Also found to have stage IV decub in the sacral area measure 0.51 cm with depth of 1 cm with significant drainage. [facility]: To notify the family that possible blood culture was done through the last visit to the emergency room last few days but no information of what kind of germ was found that time. 12/09:She has been seen by cardiology for elevated troponins of unclear etiology , possibly related to oxygen supply demand mismatch with hypoxia on admission and possibly related to acute anemia. Echocardiogram has been ordered and all antihypertensives have been on hold, heparin discontinued. Patient has also been seen by Dr. Lory Viera and there are currently no plans for endoscopy intervention. She will review the endoscopy reports from [facility]. [facility] urine culture from last week has been finalized with VRE and blood culture is gram-positive cocci. Repeat blood culture done here is showing no growth at 24 hours. Cultures from the decubitus ulcer are in progress. Patient has been seen by Dr. Clifford and antibiotics have been changed to daptomycin and Rocephin. Local wound care is the form of therahoney. Nystatin/Kenalog added for anal ulcer with yeast. TSH and free T4 will be ordered. manager sql is working on discharge planning to [facility]. Apparently is not able to take care of the patient home. 12/10: Patient has been afebrile. Vital signs are stable. Pulse ox is 94% on room air. White count is normal, hemoglobin increased to 8.1. Imodium has been changed to scheduled. Protein supplement 3 times daily. Patient states that she has had 2 bowel movements today. PT has recommended subacute rehab. We will plan for [facility] to [facility] Wisdom to clarify antibiotics. We are waiting for one blood culture from [facility] that was positive for gram-positive cocci. 12/11: Patient has been afebrile, pulse ox 98% on 2 L nasal cannula. WBC is 3.9, hemoglobin 8.1, creatinine 0.7. Noted TSH is 0.349 [address] lev[address] Wisdom has clarified antibiotics to daptomycin for 4 more days. Patient will be discharged to either [facility] or [facility] in stable condition once all arrangements are completed. Discharge diagnoses: 1. Elevated troponin secondary to oxygen supply demand mismatch with hypoxia on admission and acute anemia. 2. Acute hypoxic respiratory failure of unclear etiology possibly due to anemia , improved. No sign of heart failure. 3. Metabolic encephalopathy secondary to sepsis, hypoxia 4. Sepsis secondary to VRE urinary tract infection. 5. Possible bacteremia with positive blood culture done at [facility]. Await final report 6. Stage IV sacral ulcer and stage II at the perianal opening, present on admission. 7. Anemia, chronic blood loss. No acute blood loss. 8. History of colorectal cancer 9. Diarrhea chronic. C. difficile toxin negative. 10. Chronic pain syndrome. 7 chronic pain syndrome 8 debility 9 hypertension 10 hyperlipidemia 11 seizure disorder, stable 12 recurrent depression 13 hypothyroidism 14 acute kidney injury: With stage III chronic kidney disease Discharge plan: [facility] Impression and plan of care have been directed as dictated by the signing physician. Louisa Edmond nurse practitioner acting as scribe for signing physician. Patient Condition at Discharge: Good Plan - Discharge Summary Discharge Rx Participant: No New Discharge Prescriptions: New Acetaminophen with Codeine [Tylenol w/codeine #3] 1 - 2 tab PO Q6H PRN #24 tab PRN Reason: Pain Cholestyramine (with Sugar) [Questran Packet] 4 gm PO BID@1000,1800 packet Loperamide [Imodium] 2 mg PO QID cap Nitroglycerin Sl Tabs [Nitrostat] 0.4 mg SUBLINGUAL Q5M PRN tab PRN Reason: Chest Pain Nystatin 100,000 Unit/gm Oint [Mycostatin Oint] 1 applic TOPICAL BID applic DAPTOmycin [Cubicin] 500 mg IV DAILY #4 bag Continue busPIRone HCL 15 mg PO BID levETIRAcetam [Keppra] 500 mg PO Q12HR Levothyroxine Sodium [Synthroid] 25 mcg PO DAILY Pravastatin Sodium [Pravachol] 80 mg PO HS Folic Acid 2 mg PO DAILY Baclofen [Lioresal] 10 mg PO TID Losartan [Cozaar] 50 mg PO DAILY Lansoprazole 30 mg PO DAILY DULoxetine HCL [Cymbalta] 60 mg PO BID Fluticasone/Salmeterol [Advair Hfa 115-21 Mcg Inhaler] 2 puff INHALATION RT- BID Potassium Chloride ER [K-Dur 10] 10 meq PO BID Metoprolol Tartrate [Lopressor] 25 mg PO TID Diltiazem Cd [Cardizem CD] 180 mg PO DAILY Clopidogrel [Plavix] 75 mg PO DAILY Albuterol Inhaler [Ventolin Hfa Inhaler] 2 puff INHALATION RT-Q6H PRN PRN Reason: Shortness Of Breath Discontinued oxyCODONE-APAP 10-325MG [Percocet 10-325 mg] 1 tab PO Q8HR PRN PRN Reason: Pain Atenolol [Tenormin] 25 mg PO BID Famotidine [Pepcid] 40 mg PO BID Discharge Medication List Baclofen [Lioresal] 10 mg PO TID 02/22/16 [History] DULoxetine HCL [Cymbalta] 60 mg PO BID 02/22/16 [History] Fluticasone/Salmeterol [Advair Hfa 115-21 Mcg Inhaler] 2 puff INHALATION RT-BID 02/22/16 [History] Folic Acid 2 mg PO DAILY 02/22/16 [History] Lansoprazole 30 mg PO DAILY 02/22/16 [History] Levothyroxine Sodium [Synthroid] 25 mcg PO DAILY 02/22/16 [History] Losartan [Cozaar] 50 mg PO DAILY 02/22/16 [History] Pravastatin Sodium [Pravachol] 80 mg PO HS 02/22/16 [History] busPIRone HCL 15 mg PO BID 02/22/16 [History] levETIRAcetam [Keppra] 500 mg PO Q12HR 02/22/16 [History] Potassium Chloride ER [K-Dur 10] 10 meq PO BID 08/29/17 [History] Albuterol Inhaler [Ventolin Hfa Inhaler] 2 puff INHALATION RT-Q6H PRN 12/07/17 [ History] Clopidogrel [Plavix] 75 mg PO DAILY 12/07/17 [History] Diltiazem Cd [Cardizem CD] 180 mg PO DAILY 12/07/17 [History] Metoprolol Tartrate [Lopressor] 25 mg PO TID 12/07/17 [History] Acetaminophen with Codeine [Tylenol w/codeine #3] 1 - 2 tab PO Q6H PRN #24 tab 12/11/17 [Rx] Cholestyramine (with Sugar) [Questran Packet] 4 gm PO BID@1000,1800 packet 05/30 [Rx] DAPTOmycin [Cubicin] 500 mg IV DAILY #4 bag 12/11/17 [Rx] Loperamide [Imodium] 2 mg PO QID cap 12/11/17 [Rx] Nitroglycerin Sl Tabs [Nitrostat] 0.4 mg SUBLINGUAL Q5M PRN tab 12/11/17 [Rx] Nystatin 100,000 Unit/gm Oint [Mycostatin Oint] 1 applic TOPICAL BID applic 05/30 [Rx] Follow up Appointment(s)/Referral(s): Carolyn Delaney MD [Primary Care Provider] - As Needed () Lyndsey Sarkar MD [STAFF PHYSICIAN] - 4 Weeks ([facility] will call with appointment date and time) Joanne Wisdom MD [STAFF PHYSICIAN] - 12/26/17 9:45 am Ambulatory/Diagnostic Orders: Basic Metabolic Panel [LAB.AMB] Location: None Selected Complete Blood Count w/diff [LAB.AMB] Location: None Selected Patient Instructions/Handouts: How to Turn a Person in Bed (DC), How to Prevent Pressure Ulcers (DC), Iron Deficiency Anemia (DC), Acute Coronary Syndrome (DC), Epilepsy (DC), Hypotension (DC), Pressure Ulcer (DC) Activity/Diet/Wound Care/Special Instructions: Medi on D/C. Keep nava due to decubitus ulcer. Discharge Disposition: TRANSFER TO SNF/ECF
[2017-12-11] MEDS: NYSTATIN 100,000 UNIT/GM OINT 30 GM TUBE TOPICAL SCH (09:27)
[2017-12-11] MEDS: TRIAMCINOLONE ACET 0.1% OINTMENT 15 GM TUBE TOPICAL SCH (09:28)
[2017-12-11] MEDS: FAMOTIDINE 20 MG TAB PO SCH (09:29)
[2017-12-11] MEDS: busPIRone HCl 5 MG TAB PO SCH (09:29)
[2017-12-11] MEDS: DILTIAZEM CD 180 MG CAP.ER.24H PO SCH (09:29)
[2017-12-11] MEDS: POTASSIUM CHLORIDE ER 10 MEQ TAB.ER.PRT PO SCH (09:29)
[2017-12-11] MEDS: PANTOPRAZOLE 40 MG TABLET PO SCH (09:30)
[2017-12-11] MEDS: DULoxetine HCL 60 MG CAPSULE.DR PO SCH (09:31)
[2017-12-11] MEDS: LOPERAMIDE 2 MG CAP PO SCH ×2 (09:31→12:21)
[2017-12-11] MEDS: levETIRAcetam 500 MG TAB PO SCH (09:31)
[2017-12-11] MEDS: CLOPIDOGREL 75 MG TAB PO SCH (09:31)
[2017-12-11] MEDS: LOSARTAN 50 MG TAB PO SCH (09:32)
[2017-12-11] MEDS: FOLIC ACID 1 MG TAB PO SCH (09:32)
[2017-12-11] MEDS: METOPROLOL TARTRATE 25 MG TAB PO SCH ×2 (09:32→15:39)
--- NOTE | 2017-12-11 09:56 | P.PN ---
Subjective Progress Note Date: 12/11/17 Principal diagnosis: Chronic diarrhea anemia No bowel movements last night. No bleeding. Objective - Vital Signs Vital signs: Vital Signs Temp 98.4 F 12/11/17 04:15 Pulse 68 12/11/17 04:15 Resp 17 12/11/17 04:15 BP 138/63 12/11/17 04:15 Pulse Ox 98 12/11/17 04:15 Intake & Output 12/10/17 12/11/17 12/11/17 18:59 06:59 18:59 Intake Total 850 Output Total 405 778 Balance 445 -778 Weight 53.5 kg Intake: Intake, IV Titration 850 Amount DAPTOmycin 250 mg In 50 Sodium Chloride 0.9% 50 ml @ 100 mls/hr IVPB Q24HR [facility] Rx#:[id number] Sodium Chloride 0.9% 1, 800 000 ml @ 100 mls/hr IV . Q10H [facility] Rx#:[id number] Output: Urine 400 775 Stool 5 3 Other: Voiding Method Indwelling Catheter Indwelling Catheter # Voids 1 # Bowel Movements 1 1 - Exam General appearance: The patient is alert, oriented, in no acute distress. HET: Head is normocephalic and atraumatic. Pupils are equal and reactive. Oropharynx is clear without lesions. Neck: Supple without lymphadenopathy. Trachea midline. Heart: S1 S2. Regular rate and rhythm. Lungs: No crackles or wheezes are heard. Abdomen: Soft, nontender, nondistended with bowel sounds. No peritoneal signs. No palpable organomegaly or masses. - Labs CBC & Chem 7: 12/10/17 05:27 12/10/17 05:27 Labs: Microbiology - Last 24 Hours (Table) 12/07/17 15:33 Urine Culture - Final Urine,Catheterized Enterococcus faecalis VRE 12/08/17 14:50 Urine Culture - Final Urine,Catheterized Enterococcus faecalis VRE 12/08/17 11:00 Anaerobic Culture - Preliminary Buttock 12/08/17 11:00 Gram Stain - Final Buttock Wound Culture - Final 12/07/17 12:25 Blood Culture - Preliminary Blood No Growth after 72 hours Assessment and Plan (1) Chronic diarrhea Current Visit: Yes Status: Acute Code(s): K52.9 - NONINFECTIVE GASTROENTERITIS AND COLITIS, UNSPECIFIED SNOMED Code(s): 000590637 (2) Symptomatic anemia Current Visit: Yes Status: Acute Code(s): D64.9 - ANEMIA, UNSPECIFIED SNOMED Code(s): 368672051 (3) Iron deficiency anemia Current Visit: Yes Status: Acute Code(s): D50.9 - IRON DEFICIENCY ANEMIA, UNSPECIFIED SNOMED Code(s): 16172561 Plan: 1. Continue Imodium 2 mg 4 times daily. Assessment and plan a care discussed with Dr. Viera
[2017-12-11] MEDS ORDERED: CHOLESTYRAMINE (WITH SUGAR) 4 GM PACKET PO SCH (10:00)
[2017-12-11 10:31] VITALS: RESP 16
[2017-12-11] MEDS ORDERED: SODIUM FERRIC GLUCONAT-SUCROSE 125 MG in SODIUM CHLORIDE 0.9% 100 ML IVPB ONE (12:54)
[2017-12-11 13:17] LABS: INR 1.1 (<1.2); Prothrombin Time 10.3 sec (9.0-12.0)
--- NOTE | 2017-12-11 13:54 | PN ---
PROGRESS NOTE DATE OF SERVICE: 12/11/2017 REASON FOR FOLLOWUP: VRE urinary tract infection. INTERVAL HISTORY: The patient is currently afebrile. She is breathing comfortably. Denies having any chest pain or any cough. No abdominal pain. Did mention the diarrhea has slightly slowed down. PHYSICAL EXAMINATION: Blood pressure 132/61 with a pulse of 84, temperature 98.3, she is 100% on 2 L nasal cannula. General description is an elderly female, lying in bed in no distress. RESPIRATORY SYSTEM: Unlabored breathing, clear to auscultation anteriorly. HEART: S1, S2. Regular rate and rhythm. ABDOMEN: Soft, no tenderness. Sacral wound is currently dressed up, no obvious drainage. LABS: Hemoglobin 8.1, white count of 3.9, BUN of 9, creatinine 0.70. DIAGNOSTIC IMPRESSION AND PLAN: 1. Patient with vancomycin-resistant Enterococcus urinary tract infection. Unfortunately, the patient does to have allergies to PENICILLIN and she cannot use the Augmentin or amoxicillin due to sensitive. Similarly, the patient is on Cymbalta, currently continues the use of . She is currently on daptomycin 2 days of day 3. Will need at least 4 more days to finish a 7-day course of therapy. 2. Local wound care to the sacral wound with Aquacel silver dressing. Continue supportive care. MMODL / IJN: [id number] /
--- NOTE | 2017-12-11 14:37 | P.PN ---
Subjective Progress Note Date: 12/11/17 Patient is a pleasant 72-year-old female who is being followed by the neurology service for seizures. Patient was brought to [facility] after visiting nurse noticed that she was quite fatigued and having hypotension and mild hypoxia. Patient is bedridden and, on presentation to the emergency room, was found to have a stage IV decubitus ulcer in the sacral region. Patient was admitted and lab work was done. Patient had elevated troponins and cardiology was consulted. Patient also was found to have a urinary tract infection which is currently being treated with antibiotics. Patient does have history of epilepsy which she has had for several years. Her epilepsy has been well controlled on Keppra 500 mg twice a day. No seizures have been reported since admission. Patient does have chronic tremor of both upper extremities. At the time of my evaluation, patient is complaining of inability to get comfortable due to sacral decubitus ulcer. Patient does not appear to be in any acute distress. 12/11/2017 Patient is a pleasant 72-year-old female is being followed by the neurology service for seizures. Patient was brought to [facility] after visiting nurse found her to be hypotensive and hypoxic. Patient is bedridden and has a stage IV decubitus ulcer in the sacral region. Patient had elevated troponins on admission and cardiology has been consulted. Patient is being treated for urinary tract infection with IV antibiotics. Patient does have history of epilepsy which she has had for several years. Her seizures been well controlled on Keppra 500 mg twice a day. No seizures have been reported this admission. At the time of my evaluation, patient is resting comfortably in bed and appears to be in no acute distress. Objective - Vital Signs Vital signs: Vital Signs Temp 98.8 F 12/11/17 12:00 Pulse 89 12/11/17 12:00 Resp 16 12/11/17 12:00 BP 149/71 12/11/17 12:00 Pulse Ox 97 12/11/17 12:00 Intake & Output 12/10/17 12/11/17 12/11/17 18:59 06:59 18:59 Intake Total 850 236 Output Total 405 778 2 Balance 445 -398 234 Weight 53.5 kg Intake: Intake, IV Titration 850 Amount DAPTOmycin 250 mg In 50 Sodium Chloride 0.9% 50 ml @ 100 mls/hr IVPB Q24HR [facility] Rx#:[id number] Sodium Chloride 0.9% 1, 800 000 ml @ 100 mls/hr IV . Q10H [facility] Rx#:[id number] Oral 236 Output: Urine 400 775 Stool 5 3 2 Other: Voiding Method Indwelling Catheter Indwelling Catheter Indwelling Catheter # Voids 1 # Bowel Movements 1 1 - Exam PHYSICAL EXAM: GENERAL APPEARANCE: Patient is a well-developed, female who appears to be in no acute distress. HEENT: Normocephalic, atraumatic, no facial asymmetry is seen. Neck is supple with no masses felt. CARDIOVASCULAR: Regular rate and rhythm. ABDOMEN: Nontender, nondistended. EXTREMITIES: Show no edema or clubbing. NEUROLOGICAL EXAM: Patient is awake, alert, and oriented 3. Speech and language are normal. Strength is 4/5 in bilateral lower extremities and 5-/5 in bilateral upper extremities. Postural tremors are seen in bilateral upper extremities. Sensory exam is diminished to light touch in distal lower extremities. No facial asymmetry is seen on cranial nerve testing. No seizure- like activity is noted. - Labs CBC & Chem 7: 12/10/17 05:27 12/10/17 05:27 Labs: Microbiology - Last 24 Hours (Table) 12/07/17 15:33 Urine Culture - Final Urine,Catheterized Enterococcus faecalis VRE 12/08/17 14:50 Urine Culture - Final Urine,Catheterized Enterococcus faecalis VRE 12/08/17 11:00 Anaerobic Culture - Preliminary Buttock 12/08/17 11:00 Gram Stain - Final Buttock Wound Culture - Final 12/07/17 12:25 Blood Culture - Preliminary Blood No Growth after 72 hours Assessment and Plan Plan: Impression: 1. History of seizure disorder, on Keppra 2. Altered mental status 3. Infectious and hypoxic encephalopathy 4. Hypotension 5. Elevated cardiac enzymes 6. Urinary tract infection 7. Hypoxia Recommendation: Patient's altered mental status has improved and she has alert and oriented 3. Her altered mental status most likely due to combination of infectious and hypoxic etiologies. I recommend continuing Keppra 500 mg twice a day. EEG was normal. No seizure activity has been witnessed or reported. Continue current medical management. Continue seizure precautions. Patient is stable from a neurological standpoint for discharge to rehab. I will continue to follow with you on an as-needed basis. Feel free to call with any questions or concerns. I performed an examination of the patient and discussed the management with the PAWN BROKER. I have reviewed the PAWN BROKER notes and agree with the findings and plan of care.
[2017-12-11 17:25] VITALS: BP 131/62; PULSE 74; TEMP 97.5
== END 2017-12-11 20:18 | DRG 871 ==
LOC: EC 11:43 → 6SEL 18:25
PROVIDERS: ADMIT Internal Medicine Geriatric Medicine; ATTEND Internal Medicine Geriatric Medicine
DX: A41.81 Sepsis due to Enterococcus (principal); L89.154 Pressure ulcer of sacral region, stage 4; J96.01 Acute respiratory failure with hypoxia; G93.41 Metabolic encephalopathy; I50.32 Chronic diastolic (congestive) heart failure; N39.0 Urinary tract infection, site not specified; N17.9 Acute kidney failure, unspecified; F33.9 Major depressive disorder, recurrent, unspecified; I13.0 Hypertensive heart and chronic kidney disease with heart failure and stage 1 through stage 4 chronic kidney disease, or unspecified chronic kidney disease; L03.317 Cellulitis of buttock; K62.6 Ulcer of anus and rectum; G40.909 Epilepsy, unspecified, not intractable, without status epilepticus; D50.0 Iron deficiency anemia secondary to blood loss (chronic); M06.9 Rheumatoid arthritis, unspecified; J44.9 Chronic obstructive pulmonary disease, unspecified; N18.3 Chronic kidney disease, stage 3 (moderate); R65.20 Severe sepsis without septic shock; B37.2 Candidiasis of skin and nail; E03.9 Hypothyroidism, unspecified; E78.5 Hyperlipidemia, unspecified; G89.4 Chronic pain syndrome; F41.0 Panic disorder [episodic paroxysmal anxiety]; R26.2 Difficulty in walking, not elsewhere classified; M54.9 Dorsalgia, unspecified; M19.91 Primary osteoarthritis, unspecified site; R77.9 Abnormality of plasma protein, unspecified; K52.9 Noninfective gastroenteritis and colitis, unspecified; Z16.21 Resistance to vancomycin; Z79.02 Long term (current) use of antithrombotics/antiplatelets; Z79.51 Long term (current) use of inhaled steroids; Z79.890 Hormone replacement therapy; Z79.899 Other long term (current) drug therapy; Z74.01 Bed confinement status; Z95.820 Peripheral vascular angioplasty status with implants and grafts; Z85.048 Personal history of other malignant neoplasm of rectum, rectosigmoid junction, and anus; Z87.440 Personal history of urinary (tract) infections; Z87.891 Personal history of nicotine dependence; Z86.73 Personal history of transient ischemic attack (TIA), and cerebral infarction without residual deficits; Z90.710 Acquired absence of both cervix and uterus; Z92.3 Personal history of irradiation; Z92.21 Personal history of antineoplastic chemotherapy; Z88.0 Allergy status to penicillin; Z88.2 Allergy status to sulfonamides; Z88.8 Allergy status to other drugs, medicaments and biological substances; Z88.6 Allergy status to analgesic agent; Z88.1 Allergy status to other antibiotic agents; Z91.041 Radiographic dye allergy status; Z83.2 Family history of diseases of the blood and blood-forming organs and certain disorders involving the immune mechanism; Z82.49 Family history of ischemic heart disease and other diseases of the circulatory system; Z82.3 Family history of stroke
CPT/HCPCS: 36415; 71046; 80048; 80053; 80061; 81001; 82272; 82550; 82553; 82728; 83540; 83550; 83605; 83735; 84439; 84443; 84484; 85025; 85610; 85730; 87040; 87070; 87075; 87077; 87086; 87186; 87205; 87324; 93005; 93306; 94640; 95816; 96361; 96365; 96366; 96376; 99285

== ENCOUNTER 2018-01-29 11:46 | Day surgery (SDC) | payer MEDICARE, OTHER ==
[2018-01-28 10:38] VITALS: BMI 17.5
--- NOTE | 2018-01-29 09:59 | P.GSHP ---
History of Present Illness H&P Date: 01/29/18 Chief Complaint: Presacral ulcer This is a generally debilitated 72-year-old woman who developed a large presacral pressure ulcer. She has a significant area of tunneling which requires debridement to facilitate therapies. - Constitutional Constitutional: Reports weakness, Denies chills, Denies fever - EENT Eyes: denies blurred vision, denies pain Ears, nose, mouth and throat: Denies headache, Denies sore throat - Cardiovascular Cardiovascular: Reports decreased exercise tolerance, Denies chest pain, Denies orthopnea, Denies paroxysmal nocturnal dyspnea, Denies shortness of breath - Respiratory Respiratory: Reports cough, Denies cough with sputum, Denies hemoptysis - Gastrointestinal Gastrointestinal: Denies abdominal pain, Denies coffee ground emesis, Denies diarrhea, Denies hematochezia, Denies melena, Denies nausea, Denies vomiting - Genitourinary (Female) Genitourinary: Denies dysuria, Denies hematuria - Genitourinary (Male) Genitourinary: Denies dysuria, Denies hematuria - Musculoskeletal Musculoskeletal: Denies myalgias - Integumentary Integumentary: Denies pruritus, Denies rash - Neurological Comment: Generalized debilitation Neurological: Denies numbness, Denies weakness - Psychiatric Psychiatric: Denies anxiety, Denies depression - Endocrine Endocrine: Denies fatigue, Denies weight change - Hematologic/Lymphatic Hematologic/Lymphatic: Denies easy bleeding, Denies easy bruising - Allergic/Immunologic Allergic/Immunologic: Denies anaphylaxis, Denies angioedema Past Medical History Past Medical History: Cancer, CVA/TIA, Hypertension, Rheumatoid Arthritis (RA), Seizure Disorder, Skin Disorder, Thyroid Disorder, Vascular Disorder Additional Past Medical History / Comment(s): Colorectal/anal cancer 2012, CVA, TIA, peripheral vascular disease with previous stenting to the lower extremities, degenerative arthritis and chronic back pain, recent blood poisoning and bowel obtruction, "rapid heart rate with SOB", nava catheter. wound on tailbone, uses walker with wheels History of Any Multi-Drug Resistant Organisms: VRE Date of last positivie culture/infection: 12/07/17 MDRO Source:: URINE VRE Past Surgical History: Appendectomy, Back Surgery, Bowel Resection, Hysterectomy , Joint Replacement, Orthopedic Surgery Additional Past Surgical History / Comment(s): rt knee replacement, lyly hip replacement, bone removed and yaquelin placed left leg, surgery for bowel obstruction x 2, lyly cataracts Past Anesthesia/Blood Transfusion Reactions: No Reported Reaction Smoking Status: Current every day smoker - Past Family History Mother History Unknown: Yes Family Medical History: CVA/TIA Father History Unknown: Yes Additional Family Medical History / Comment(s): father of blot clots 6months after cabg Daughter(s) Family Medical History: Cancer Additional Family Medical History / Comment(s): bone Medications and Allergies Home Medications Medication Instructions Recorded Confirmed Type Baclofen [Lioresal] 10 mg PO TID 02/22/16 01/28/18 History DULoxetine HCL [Cymbalta] 60 mg PO BID 02/22/16 01/28/18 History Fluticasone/Salmeterol [Advair Hfa 2 puff INHALATION BID 02/22/16 01/28/18 History 115-21 Mcg Inhaler] Folic Acid 2 mg PO DAILY 02/22/16 01/28/18 History Lansoprazole 30 mg PO DAILY 02/22/16 01/28/18 History Levothyroxine Sodium [Synthroid] 25 mcg PO DAILY 02/22/16 01/28/18 History Losartan [Cozaar] 50 mg PO DAILY 02/22/16 01/28/18 History Pravastatin Sodium [Pravachol] 80 mg PO HS 02/22/16 01/28/18 History busPIRone HCL 15 mg PO BID 02/22/16 01/28/18 History levETIRAcetam [Keppra] 500 mg PO Q12HR 02/22/16 01/28/18 History Potassium Chloride ER [K-Dur 10] 10 meq PO BID 08/29/17 01/28/18 History Albuterol Inhaler [Ventolin Hfa 2 puff INHALATION Q6HR PRN 12/07/17 01/28/18 History Inhaler] Diltiazem Cd [Cardizem CD] 180 mg PO DAILY 12/07/17 01/28/18 History Metoprolol Tartrate [Lopressor] 25 mg PO TID 12/07/17 01/28/18 History oxyCODONE-APAP 10-325MG [Percocet 1 tab PO Q8HR PRN 08/24/18 09/18/18 History 10-325 mg] Allergies Allergy/AdvReac Type Severity Reaction Status Date / Time acetaminophen Allergy Hallucinati Verified 01/28/18 10:28 [From Tylenol-Codeine #3] ons aspirin Allergy Unknown Verified 01/28/18 10:28 codeine Allergy Hallucinati Verified 01/28/18 10:28 [From Tylenol-Codeine #3] ons fluoxetine [From Prozac] Allergy Unknown Verified 01/28/18 10:28 ibuprofen [From Motrin] Allergy Unknown Verified 01/28/18 10:28 indomethacin [From Indocin] Allergy Unknown Verified 01/28/18 10:28 Iodinated Contrast- Oral and Allergy Unknown Verified 01/28/18 10:28 IV Dye Penicillins Allergy Anaphylaxis Verified 01/28/18 10:28 Sulfa (Sulfonamide AdvReac Nausea & Verified 01/28/18 10:28 Antibiotics) Vomiting & Diarrhea Surgical - Exam Osteopathic Statement: *. No significant issues noted on an osteopathic structural exam other than those noted in the History and Physical/Consult. - General Rather thin and looks significantly older than her chronologic years. well developed, well nourished, no distress - Eyes normal ocular movement, no icteric - ENT no hearing loss, no congestion - Neck no masses, no bruits, trachea midline - Respiratory normal expansion, normal respiratory effort, clear to auscultation - Cardiovascular Rhythm: regular - Abdomen Abdomen: soft, non tender, no guarding, no rigid, no rebound - Integumentary Large presacral ulcer. no rash, no abnormal pigmentation - Neurologic no disoriented, no combative - Psychiatric oriented to time, oriented to person, oriented to place, speech is normal, memory intact Assessment and Plan (1) Pressure ulcer of sacral region, stage 3 Status: Acute Code(s): L89.153 - PRESSURE ULCER OF SACRAL REGION, STAGE 3 SNOMED Code(s): 170873973 Plan: Patient is admitted for debridement. We will then be able to utilize a wound VAC.
[~2018-01-29 11:46] MED LIST: DEXAMETHASONE SOD PHOSPHATE 10 MG/ML 1 ML VIAL IV ONE; HYDROmorphone 0.5 MG/0.5 ML SYRINGE IVP PRN; LACTATED RINGERS 1,000 ML IV SCH; LIDOCAINE 1% 20 ML VIAL (10MG/ML) FOR IV START INTRADERMA PRN; MIDAZOLAM 2 MG/2 ML VIAL IV PRN; ONDANSETRON 4 MG/2 ML VIAL IVP ONE; Pre Op ABX Message 1 EACH MISC MISCELLANE ONE; SCOPOLAMINE 1.5MG/72HR PATCH TRANSDERM ONE
[2018-01-29 11:58] VITALS: RESP 18; TEMP 97.4
[2018-01-29] MEDS ORDERED: KETAMINE 10 MG/ML 20 ML VIAL ONE (13:25)
[2018-01-29] MEDS ORDERED: PROPOFOL 10 MG/ML 20 ML VIAL IV ONE (13:25)
[2018-01-29] MEDS ORDERED: MIDAZOLAM 2 MG/2 ML VIAL ONE (13:25)
[2018-01-29] MEDS ORDERED: fentaNYL (PF) 50 MCG/ML 2 ML AMP ONE (13:25)
--- NOTE | 2018-01-29 14:44 | PCM.SQDEBR ---
Subcutaneous Debridement - Subcutaneous Debridement Subcutaneous Debridement: Date of service: 01/29/2018 Surgeon: Nikia Pre-and postop diagnosis: Pressure ulcer stage III over the sacrum Type of debridement: Excisional surgical Chief complaint: ulcer of directly over the distal sacrum Anesthesia: IV sedation was utilized Signs of infection: Mild redness Other material in the wound that is expected to inhibit healing or promote adjacent tissue breakdown: As noted below Degree of epithelialization: % Method and instrument: Surgical debridement with scalpel Character of the wound after debridement: Clean bloody subcutaneous bed Description of necrotic material present: Nonviable soft tissue and overhanging skin edges Description of tissue removed: Same Pre-debridement measurement: One by one cm and 0.8 cm in depth Postoperative debridement measurement: 2.1 x 2.0 cm and 0.8 cm in depth Specimens none sent to pathology Control of bleeding: Bleeding was controlled with a combination of electrocautery and direct pressure Post debridement dressing: Absorptive silver Patient tolerated procedure well
[2018-01-29 15:18] VITALS: BP 116/67; PULSE 64
== END 2018-01-29 16:02 | disposition home or self-care (01) ==
LOC: OR 11:46
PROVIDERS: ATTEND Thoracic Surgery (Cardiothoracic Vascular Surgery)
DX: L89.153 Pressure ulcer of sacral region, stage 3 (principal); J44.9 Chronic obstructive pulmonary disease, unspecified; I10 Essential (primary) hypertension; M06.9 Rheumatoid arthritis, unspecified; I73.9 Peripheral vascular disease, unspecified; E07.9 Disorder of thyroid, unspecified; M19.90 Unspecified osteoarthritis, unspecified site; M54.9 Dorsalgia, unspecified; G89.29 Other chronic pain; F41.0 Panic disorder [episodic paroxysmal anxiety]; E78.5 Hyperlipidemia, unspecified; F32.9 Major depressive disorder, single episode, unspecified; G40.909 Epilepsy, unspecified, not intractable, without status epilepticus; Z95.820 Peripheral vascular angioplasty status with implants and grafts; Z90.49 Acquired absence of other specified parts of digestive tract; Z90.710 Acquired absence of both cervix and uterus; Z96.651 Presence of right artificial knee joint; Z96.643 Presence of artificial hip joint, bilateral; Z85.038 Personal history of other malignant neoplasm of large intestine; Z85.048 Personal history of other malignant neoplasm of rectum, rectosigmoid junction, and anus; Z86.73 Personal history of transient ischemic attack (TIA), and cerebral infarction without residual deficits; Z87.440 Personal history of urinary (tract) infections; Z87.891 Personal history of nicotine dependence; Z79.02 Long term (current) use of antithrombotics/antiplatelets; Z79.890 Hormone replacement therapy; Z79.51 Long term (current) use of inhaled steroids; Z79.899 Other long term (current) drug therapy; Z88.5 Allergy status to narcotic agent; Z88.0 Allergy status to penicillin; Z88.8 Allergy status to other drugs, medicaments and biological substances; Z88.6 Allergy status to analgesic agent; Z91.041 Radiographic dye allergy status
CPT/HCPCS: 11043; J2250; J2405; J3010; J2704

== ENCOUNTER → 2018-05-19 | Outpatient (CLI) | payer MEDICARE, OTHER ==
--- NOTE | 2018-05-19 13:25 | MR ---
MR sacrum and coccyx with and without contrast HISTORY: Osteomyelitis, nonhealing ulcer Multiplanar multisequence and postcontrast images obtained through the sacrum and coccyx following 6 cc Gadavist IV. Correlation to plain film 08/29/2017 Postop changes are noted to the lower lumbar spine. There is an underlying scoliosis, degenerative di sc change. Patient shows post arthroplasty change in the hips, artifact is present. Suspect postop ch anges to the posterior left ilium, correlate for appropriate surgical history. Indwelling Arceo paul ter is present. There is also present at the level of the lower sacrum and coccyx in the midline, abnormal skin thick ening is present. Underlying bone marrow signal is maintained. No evident abscess. There is enhanceme nt at the level of the abnormal skin thickening at the site of patient's nonhealing wound. IMPRESSION: Findings compatible with cellulitis. Osteomyelitis is not evident. Follow-up as indicated . Additional findings above.
== END | disposition home or self-care (01) ==
LOC: RADMRIMAIN 11:21
PROVIDERS: ATTEND Nurse Practitioner Family
DX: L03.818 Cellulitis of other sites (principal)
CPT/HCPCS: 72197; A9585

== ENCOUNTER 2018-05-21 08:11 | Day surgery (SDC) | payer MEDICARE, OTHER ==
[2018-05-21 08:47] VITALS: TEMP 97.8
--- NOTE | 2018-05-21 09:39 | P.GSHP ---
History of Present Illness H&P Date: 05/21/18 Chief Complaint: Sacral ulcer The patient has a long-standing presacral ulcer. She has been more compliant with offloading. However, she still has a lot of rolled edges and undermining. - Constitutional Constitutional: Reports weakness, Denies chills, Denies fever - EENT Eyes: denies blurred vision, denies pain Ears, nose, mouth and throat: Denies headache, Denies sore throat - Cardiovascular Cardiovascular: Denies chest pain, Denies dyspnea on exertion, Denies orthopnea , Denies paroxysmal nocturnal dyspnea, Denies shortness of breath - Respiratory Respiratory: Reports cough, Denies cough with sputum, Denies hemoptysis - Gastrointestinal Gastrointestinal: Denies abdominal pain, Denies coffee ground emesis, Denies diarrhea, Denies hematemesis, Denies hematochezia, Denies jaundice, Denies nausea, Denies vomiting - Genitourinary (Female) Genitourinary: Denies dysuria, Denies hematuria - Genitourinary (Male) Genitourinary: Denies dysuria, Denies hematuria - Musculoskeletal Musculoskeletal: Reports gait dysfunction, Denies myalgias - Integumentary Integumentary: Denies pruritus, Denies rash - Neurological Neurological: Denies numbness, Denies weakness - Psychiatric Psychiatric: Denies anxiety, Denies depression - Endocrine Endocrine: Denies fatigue, Denies weight change Past Medical History Past Medical History: Coronary Artery Disease (CAD), Cancer, Heart Failure, COPD , CVA/TIA, Hyperlipidemia, Hypertension, Renal Disease, Rheumatoid Arthritis (RA ), Seizure Disorder, Skin Disorder, Thyroid Disorder, Vascular Disorder Additional Past Medical History / Comment(s): SACRAL WOUND STAGE 3 (WOUND CLINIC ). Arceo catheter. DAMARI'S ESOPHAGUS. IBS. Colorectal/anal cancer 2012. FIBROMYALGIA. Peripheral vascular disease with previous stenting to the lower extremities. Chronic back pain. "Blood poisoning and bowel obtruction. "Rapid heart rate with SOB". Walker with wheels. History of Any Multi-Drug Resistant Organisms: VRE Date of last positivie culture/infection: 12/07/17 MDRO Source:: URINE VRE Past Surgical History: Appendectomy, Back Surgery, Bowel Resection, Hysterectomy , Joint Replacement, Orthopedic Surgery Additional Past Surgical History / Comment(s): [employer] Operator knee replacement &ion hip replacement. Bone removed and yaquelin placed left leg. Surgery for bowel obstruction x 2. Ion cataracts Past Anesthesia/Blood Transfusion Reactions: No Reported Reaction Past Psychological History: Depression, Panic Disorder Smoking Status: Current every day smoker Past Alcohol Use History: None Reported Additional Past Alcohol Use History / Comment(s): smoked since age 21, < 1 PPD Past Drug Use History: None Reported - Past Family History Mother History Unknown: Yes Family Medical History: CVA/TIA Father History Unknown: Yes Additional Family Medical History / Comment(s): father of blot clots 6months after cabg Daughter(s) Family Medical History: Cancer Additional Family Medical History / Comment(s): bone Medications and Allergies Home Medications Medication Instructions Recorded Confirmed Type Baclofen [Lioresal] 10 mg PO TID 02/22/16 05/21/18 History Folic Acid 1 mg PO DAILY 02/22/16 05/21/18 History Lansoprazole 30 mg PO DAILY 02/22/16 05/21/18 History Levothyroxine Sodium [Synthroid] 25 mcg PO QAM 02/22/16 05/21/18 History busPIRone HCL 15 mg PO Q12H 02/22/16 05/21/18 History levETIRAcetam [Keppra] 500 mg PO Q12HR 02/22/16 05/21/18 History Albuterol Inhaler [Ventolin Hfa 2 puff INHALATION Q6HR PRN 12/07/17 05/21/18 History Inhaler] Clopidogrel Bisulfate [Plavix] 75 mg PO DAILY 04/23/18 05/21/18 History Melatonin 5 mg PO HS 04/23/18 05/21/18 History ALPRAZolam [Xanax] 0.25 mg PO BID PRN 05/14/18 05/21/18 History Diltiazem HCl 30 mg PO TID 05/15/18 05/21/18 History Dimethicone/Zinc Oxide [Inzo Zinc 1 dose TOPICAL Q8H 05/15/18 05/21/18 History Oxide Barrier Cream] Fluticasone/Vilanterol [Breo 1 puff INHALATION DAILY 05/15/18 05/21/18 History Ellipta 100-25 Mcg Inhaler] Losartan [Cozaar] 0.5 tab PO DAILY 05/15/18 05/21/18 History Metoprolol Tartrate [Lopressor] 12.5 mg PO BID 05/15/18 05/21/18 History Mylanta 30 ml PO Q4H PRN 05/15/18 05/21/18 History Nitroglycerin Sl Tabs [Nitrostat] 0.4 mg SL DIRECTED 05/15/18 05/21/18 History Potassium Chloride [Klor-Con 10] 10 meq PO Q12H 05/15/18 05/21/18 History oxyCODONE HCL/ACETAMINOPHEN 1 tab PO Q12H 05/15/18 05/21/18 History [Endocet 5-325 mg] Allergies Allergy/AdvReac Type Severity Reaction Status Date / Time amitriptyline Allergy Unknown Verified 05/21/18 08:48 aspirin Allergy Unknown Verified 05/21/18 08:48 ciprofloxacin [From Cipro] Allergy Unknown Verified 05/21/18 08:48 codeine Allergy Hallucinati Verified 05/21/18 08:48 [From Tylenol-Codeine #3] ons ezetimibe Allergy Unknown Verified 05/21/18 08:48 fluoxetine [From Prozac] Allergy Unknown Verified 05/21/18 08:48 ibuprofen [From Motrin] Allergy Unknown Verified 05/21/18 08:48 indomethacin [From Indocin] Allergy Unknown Verified 05/21/18 08:48 Iodinated Contrast- Oral and Allergy Unknown Verified 05/21/18 08:48 IV Dye niacin Allergy Unknown Verified 05/21/18 08:48 nitrofurantoin Allergy Unknown Verified 05/21/18 08:48 Penicillins Allergy Anaphylaxis Verified 05/21/18 08:48 pregabalin Allergy Unknown Verified 05/21/18 08:48 Boymyla-Dcf-[id number] Reductase Allergy Unknown Verified 05/21/18 08:48 Inhibitor Sulfa (Sulfonamide AdvReac Nausea & Verified 05/21/18 08:48 Antibiotics) Vomiting & Diarrhea Surgical - Exam Osteopathic Statement: *. No significant issues noted on an osteopathic structural exam other than those noted in the History and Physical/Consult. Vital Signs Temp Pulse Resp BP Pulse Ox 97.8 F 86 17 157/82 96 05/21/18 08:45 05/21/18 08:45 05/21/18 08:45 05/21/18 08:45 05/21/18 08:45 - General well developed, well nourished, no distress - Eyes normal ocular movement, no icteric - ENT no hearing loss, no congestion - Neck no masses, no bruits, trachea midline - Respiratory normal expansion, normal respiratory effort, clear to auscultation - Cardiovascular Rhythm: regular - Abdomen Abdomen: soft, non tender, no guarding, no rigid, no rebound - Integumentary Presacral ulcer no rash, no abnormal pigmentation - Neurologic no disoriented, no combative - Psychiatric oriented to time, oriented to person, oriented to place, speech is normal, memory intact Assessment and Plan (1) Pressure ulcer of sacral region, stage 3 Status: Acute Code(s): L89.153 - PRESSURE ULCER OF SACRAL REGION, STAGE 3 SNOMED Code(s): 525360176 Plan: We discussed options with the patient. She agrees to proceed with debridement to include the rolled edges to facilitate closure.
[2018-05-21] MEDS ORDERED: PROPOFOL 10 MG/ML 20 ML VIAL IV ONE (10:13)
[2018-05-21] MEDS ORDERED: LIDOCAINE 1% INJ 10MG/ML (20 ML MDV) ONE (10:13)
[2018-05-21] MEDS ORDERED: fentaNYL (PF) 50 MCG/ML 2 ML AMP ONE (10:13)
[2018-05-21] MEDS ORDERED: MIDAZOLAM 2 MG/2 ML VIAL ONE (10:13)
[2018-05-21] MEDS ORDERED: LACTATED RINGERS 1,000 ML IV ONE (10:53)
[2018-05-21 11:32] VITALS: BP 156/95; PULSE 86; RESP 16
--- NOTE | 2018-05-21 11:38 | PCM.SQDEBR ---
Subcutaneous Debridement - Subcutaneous Debridement Date of Service: 05/21/18 Subcutaneous Debridement: Date of service: 05/21/2018 Surgeon: Nikia Pre-and postop diagnosis: Presacral ulceration Type of debridement: Excisional subcutaneous surgical debridement Chief complaint: ulcer of presacral area Anesthesia: 2% lidocaine gel applied to the ulcer Signs of infection: Mild redness Other material in the wound that is expected to inhibit healing or promote adjacent tissue breakdown: And nonviable soft tissue, slough, rolled nonviable skin edges and subcutaneous tissue Degree of epithelialization: % Method and instrument: Surgical debridement with scalpel and sharp curette Character of the wound after debridement: Clean bloody subcutaneous bed with tapered skin edges Description of necrotic material present: And nonviable soft tissue with rolled skin edges and nonviable skin and slough Description of tissue removed: Same Pre-debridement measurement: 2 x 2.5 cm and 0.5 cm in depth Postoperative debridement measurement: 3 x 3.5 cm and 0.7 cm in depth Specimens deep tissue cultures sent Control of bleeding:Bleeding was easily controlled with saline moistened gauze and light pressure Post debridement dressing: Absorptive silver Patient tolerated procedure well
== END 2018-05-21 12:10 | disposition home or self-care (01) ==
LOC: OR 08:11
PROVIDERS: ATTEND Thoracic Surgery (Cardiothoracic Vascular Surgery)
DX: L89.153 Pressure ulcer of sacral region, stage 3 (principal); I25.10 Atherosclerotic heart disease of native coronary artery without angina pectoris; I13.0 Hypertensive heart and chronic kidney disease with heart failure and stage 1 through stage 4 chronic kidney disease, or unspecified chronic kidney disease; N18.9 Chronic kidney disease, unspecified; I50.9 Heart failure, unspecified; F17.210 Nicotine dependence, cigarettes, uncomplicated; J44.9 Chronic obstructive pulmonary disease, unspecified; Z86.73 Personal history of transient ischemic attack (TIA), and cerebral infarction without residual deficits; E78.5 Hyperlipidemia, unspecified; M06.9 Rheumatoid arthritis, unspecified; G40.909 Epilepsy, unspecified, not intractable, without status epilepticus; E07.9 Disorder of thyroid, unspecified; Z85.038 Personal history of other malignant neoplasm of large intestine; K22.70 Barrett's esophagus without dysplasia; M79.7 Fibromyalgia; I73.9 Peripheral vascular disease, unspecified; Z95.820 Peripheral vascular angioplasty status with implants and grafts; G89.29 Other chronic pain; M54.9 Dorsalgia, unspecified; K58.9 Irritable bowel syndrome, unspecified; F32.9 Major depressive disorder, single episode, unspecified; F41.0 Panic disorder [episodic paroxysmal anxiety]; Z79.02 Long term (current) use of antithrombotics/antiplatelets; Z79.890 Hormone replacement therapy; Z79.891 Long term (current) use of opiate analgesic; Z79.899 Other long term (current) drug therapy; Z88.5 Allergy status to narcotic agent; Z88.0 Allergy status to penicillin; Z88.2 Allergy status to sulfonamides; Z88.8 Allergy status to other drugs, medicaments and biological substances; Z88.6 Allergy status to analgesic agent; Z88.1 Allergy status to other antibiotic agents; Z91.041 Radiographic dye allergy status
CPT/HCPCS: 88304; 87070; 87205; 87075; 11043; J2250; J1100; J2405; J2001; J3010; J2704; 87077; 87186

== ENCOUNTER 2018-06-13 10:08 | Emergency (ER) | payer MEDICARE, OTHER ==
--- NOTE | 2018-06-13 10:48 | ED ---
Psych HPI - General Chief Complaint: Psychiatric Symptoms Stated Complaint: Petition Time Seen by Provider: 06/13/18 10:11 Source: patient, EMS, RN notes reviewed Mode of arrival: EMS Limitations: no limitations - History of Present Illness Initial Comments: This is a 73-year-old female presents emergency Department from [facility] for psychiatric evaluation. Patient has been aggressive, combative at [facility]. Patient reports this is because she cannot sleep at nighttime and he will not give her any sleeping pills. Patient states they've been given her melatonin that does not help. Patient and eyes fevers or chills. She is currently being treated for sacral wound with bone exposure states that she had a wound VAC on it but they removed it to send her to the hospital. Patient was seen at [facility] prior to this and was sent back to facility as they could not find any signs of infection or any other reason for her behavior. Patient is now sent here for evaluation by psych and petition. - Related Data Home Medications Medication Instructions Recorded Confirmed Baclofen [Lioresal] 10 mg PO TID@0900,1300,2100 02/22/16 06/13/18 Folic Acid 1 mg PO DAILY@1300 02/22/16 06/13/18 Lansoprazole 30 mg PO DAILY@0900 02/22/16 06/13/18 Levothyroxine Sodium [Synthroid] 25 mcg PO DAILY@0600 02/22/16 06/13/18 busPIRone HCL 15 mg PO BID@0900,2100 02/22/16 06/13/18 levETIRAcetam [Keppra] 500 mg PO BID@0900,2100 02/22/16 06/13/18 Albuterol Inhaler [Ventolin Hfa 2 puff INHALATION Q6HR PRN 12/07/17 06/13/18 Inhaler] Clopidogrel Bisulfate [Plavix] 75 mg PO DAILY@1700 04/23/18 06/13/18 Melatonin 5 mg PO HS@209904/23/18 06/13/18 ALPRAZolam [Xanax] 0.25 mg PO BID@1300,2100 05/14/18 06/13/18 Fluticasone/Vilanterol [Breo 1 puff INHALATION DAILY@0900 05/15/18 06/13/18 Ellipta 100-25 Mcg Inhaler] Metoprolol Tartrate [Lopressor] 12.5 mg PO BID@0900,2100 05/15/18 06/13/18 Mylanta 30 ml PO Q4H PRN 05/15/18 06/13/18 Nitroglycerin Sl Tabs [Nitrostat] 0.4 mg SL DIRECTED PRN 05/15/18 06/13/18 oxyCODONE HCL/ACETAMINOPHEN 1 tab PO TID@0600,1400,2200 05/15/18 06/13/18 [Endocet 5-325 mg] Acetaminophen Tab [Tylenol Tab] 650 mg PO Q4H PRN 06/13/18 06/13/18 Fluticasone Nasal [place] [Flonase 1 spray EA NOSTRIL DAILY@0900,209906/13/1805/31 Nasal [place]] Lactose-Reduced Food [Ensure Plus] 237 ml PO TID@0900,1300,209906/13/18 Loperamide [Imodium] 2 mg PO Q8H PRN 06/13/18 06/13/18 Potassium Chloride [Klor-Con 10] 10 meq PO BID@0900,209906/13/18 06/13/18 Sodium Chloride [Saline Nasal 1 spray EA NOSTRIL HS@209906/13/18 06/13/18 [place]] Previous Rx's Medication Instructions Recorded Cephalexin [Keflex] 500 mg PO Q8HR #21 cap 06/13/18 Allergies Allergy/AdvReac Type Severity Reaction Status Date / Time amitriptyline Allergy Unknown Verified 06/13/18 10:48 aspirin Allergy Unknown Verified 06/13/18 10:48 ciprofloxacin [From Cipro] Allergy Unknown Verified 06/13/18 10:48 codeine Allergy Hallucinati Verified 06/13/18 10:48 [From Tylenol-Codeine #3] ons ezetimibe Allergy Unknown Verified 06/13/18 10:48 fluoxetine [From Prozac] Allergy Unknown Verified 06/13/18 10:48 ibuprofen [From Motrin] Allergy Unknown Verified 06/13/18 10:48 indomethacin [From Indocin] Allergy Unknown Verified 06/13/18 10:48 Iodinated Contrast- Oral and Allergy Unknown Verified 06/13/18 10:48 IV Dye niacin Allergy Unknown Verified 06/13/18 10:48 nitrofurantoin Allergy Unknown Verified 06/13/18 10:48 Penicillins Allergy Anaphylaxis Verified 06/13/18 10:48 pregabalin Allergy Unknown Verified 06/13/18 10:48 Wxdiukp-Eeb-Ndk Reductase Allergy Unknown Verified 06/13/18 10:48 Inhibitor Sulfa (Sulfonamide AdvReac Nausea & Verified 06/13/18 10:48 Antibiotics) Vomiting & Diarrhea Review of Systems ROS Statement: Those systems with pertinent positive or pertinent negative responses have been documented in the HPI. ROS Other: All systems not noted in ROS Statement are negative. Past Medical History Past Medical History: Coronary Artery Disease (CAD), Cancer, Heart Failure, COPD , CVA/TIA, Hyperlipidemia, Hypertension, Renal Disease, Rheumatoid Arthritis (RA ), Seizure Disorder, Skin Disorder, Thyroid Disorder, Vascular Disorder Additional Past Medical History / Comment(s): SACRAL WOUND STAGE 3 (WOUND CLINIC ). Arceo catheter. DAMARI'S ESOPHAGUS. IBS. Colorectal/anal cancer 2012. FIBROMYALGIA. Peripheral vascular disease with previous stenting to the lower extremities. Chronic back pain. "Blood poisoning and bowel obtruction. "Rapid heart rate with SOB". Walker with wheels. 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 Bone removed and yaquelin placed left leg. Surgery for bowel obstruction x 2. Lyly cataracts Past Anesthesia/Blood Transfusion Reactions: No Reported Reaction Past Psychological History: Depression, Panic Disorder Smoking Status: Current every day smoker Past Alcohol Use History: None Reported Past Drug Use History: None Reported - Past Family History Mother History Unknown: Yes Family Medical History: CVA/TIA Father History Unknown: Yes Additional Family Medical History / Comment(s): father of blot clots 6months after cabg Daughter(s) Family Medical History: Cancer Additional Family Medical History / Comment(s): bone General Exam Limitations: no limitations General appearance: alert, in no apparent distress Head exam: Present: atraumatic, normocephalic, normal inspection Eye exam: Present: normal appearance, PERRL, EOMI. Absent: scleral icterus, conjunctival injection, periorbital swelling ENT exam: Present: normal exam, normal oropharynx, mucous membranes moist Cardiovascular Exam: Present: regular rate, normal rhythm, normal heart sounds. Absent: systolic murmur, diastolic murmur, rubs, gallop, clicks GI/Abdominal exam: Present: soft, normal bowel sounds. Absent: distended, tenderness, guarding, rebound, rigid Skin exam: Present: warm, dry, intact, normal color, other (Deep wound noted in the sacral region approximate 2.5 cm). Absent: rash Course Vital Signs 06/13/18 06/13/18 06/13/18 10:33 11:42 12:12 Temperature 97.8 F 98.3 F Pulse Rate 125 H 119 H Respiratory 18 18 Rate Blood Pressure 143/80 108/66 O2 Sat by Pulse 98 95 Oximetry Medical Decision Making - Medical Decision Making 73-year-old female presented for psychiatric evaluation. Patient was evaluated by EPS and case discussed with on-call psychiatrist. They do not recommend inpatient treatment. She does have noted bacteria in a urinalysis so this may be chronic from Arceo. Patient will be given antibiotics pending urine culture. Patient is stable for discharge at this time. - Lab Data Result diagrams: 06/13/18 10:31 06/13/18 10:31 Lab Results 06/13/18 06/13/18 06/13/18 Range/Units 10:31 10:31 10:44 WBC 10.5 (3.8-10.6) k/uL RBC 4.21 (3.80-5.40) m/uL Hgb 12.2 (11.4-16.0) gm/dL Hct 38.4 (34.0-46.0) % MCV 91.3 (80.0-100.0) fL MCH 28.9 (25.0-35.0) pg MCHC 31.7 (31.0-37.0) g/dL RDW 16.2 H (11.5-15.5) % Plt Count 385 (150-450) k/uL Neutrophils % 81 % Lymphocytes % 10 % Monocytes % 6 % Eosinophils % 0 % Basophils % 0 % Neutrophils # 8.5 H (1.3-7.7) k/uL Lymphocytes # 1.0 (1.0-4.8) k/uL Monocytes # 0.6 (0-1.0) k/uL Eosinophils # 0.0 (0-0.7) k/uL Basophils # 0.0 (0-0.2) k/uL Anisocytosis Slight Sodium 144 (137-145) mmol/L Potassium 4.8 (3.5-5.1) mmol/L Chloride 110 H (98-107) mmol/L Carbon Dioxide 22 (22-30) mmol/L Anion Gap 12 mmol/L BUN 24 H (7-17) mg/dL Creatinine 1.12 H (0.52-1.04) mg/dL Est GFR (CKD-EPI)AfAm 57 (>60 ml/min/1.73 sqM) Est GFR (CKD-EPI)NonAf 50 (>60 ml/min/1.73 sqM) Glucose 120 H (74-99) mg/dL Calcium 11.0 H (8.4-10.2) mg/dL Total Bilirubin 0.5 (0.2-1.3) mg/dL AST 35 (14-36) U/L ALT 20 (9-52) U/L Alkaline Phosphatase 106 (38-126) U/L Total Protein 7.3 (6.3-8.2) g/dL Albumin 4.3 (3.5-5.0) g/dL Urine Color Yellow Urine Appearance Turbid H (Clear) Urine pH 5.0 (5.0-8.0) Ur Specific [place] 1.020 (1.001-1.035) Urine Protein 1+ H (Negative) Urine Glucose (UA) Negative (Negative) Urine Ketones Negative (Negative) Urine Blood Small H (Negative) Urine Nitrite Negative (Negative) Urine Bilirubin Negative (Negative) Urine Urobilinogen <2.0 (<2.0) mg/dL Ur Leukocyte Esterase Large H (Negative) Urine RBC 10 H (0-5) /hpf Urine WBC >182 H (0-5) /hpf Ur Squamous Epith Cells 3 (0-4) /hpf Calcium Oxalate Crystal Occasional H (None) /hpf Urine Bacteria Occasional H (None) /hpf Urine Mucus Occasional H (None) /hpf Urine Opiates Screen Not Detected (NotDetected) Ur Oxycodone Screen Detected H (NotDetected) Urine Methadone Screen Not Detected (NotDetected) Ur Propoxyphene Screen Not Detected (NotDetected) Ur Barbiturates Screen Not Detected (NotDetected) U Tricyclic Antidepress Not Detected (NotDetected) Ur Phencyclidine Scrn Not Detected (NotDetected) Ur Amphetamines Screen Not Detected (NotDetected) U Methamphetamines Scrn Not Detected (NotDetected) U Benzodiazepines Scrn Detected H (NotDetected) Urine Cocaine Screen Not Detected (NotDetected) U Marijuana (THC) Screen Not Detected (NotDetected) Serum Alcohol <10 mg/dL Disposition Clinical Impression: UTI (urinary tract infection), Mood disorder Disposition: HOME SELF-CARE Condition: Stable Additional Instructions: Please return to the Emergency Department if symptoms worsen or any other concerns. Prescriptions: Cephalexin [Keflex] 500 mg PO Q8HR #21 cap Is patient prescribed a controlled substance at d/c from ED?: No Referrals: Carolyn Delaney MD [Primary Care Provider] - 1-2 days Time of Disposition: 14:35
[2018-06-13 10:53] VITALS: RESP 18
[2018-06-13 10:53] LABS: Anisocytosis Slight; Basophils % (A) 0 %; Eosinophils % (A) 0 %; HCT 38.4 % (34.0-46.0); HGB 12.2 gm/dL (11.4-16.0); Lymphocytes % (A) 10 %; MCH 28.9 pg (25.0-35.0); MCHC 31.7 g/dL (31.0-37.0); MCV 91.3 fL (80.0-100.0); Mean Platelet Volume 7.1; Monocytes # (A) 0.6 k/uL (0-1.0); Monocytes % (A) 6 %; Neutrophils # (A) 8.5 k/uL (1.3-7.7); Neutrophils % (A) 81 %; Platelet Count 385 k/uL (150-450); RBC 4.21 m/uL (3.80-5.40); RDW 16.2 % (11.5-15.5); WBC 10.5 k/uL (3.8-10.6)
[2018-06-13 11:02] LABS: ALT 20 U/L (9-52); AST 35 U/L (14-36); Albumin 4.3 g/dL (3.5-5.0); Alcohol <10 mg/dL; Alkaline Phosphatase 106 U/L (38-126); Anion Gap 12 mmol/L; Blood Urea Nitrogen 24 mg/dL (7-17); Carbon Dioxide 22 mmol/L (22-30); Chloride 110 mmol/L (98-107); Glucose 120 mg/dL (74-99); Potassium 4.8 mmol/L (3.5-5.1); Sodium 144 mmol/L (137-145); Total Bilirubin 0.5 mg/dL (0.2-1.3); Total Protein 7.3 g/dL (6.3-8.2)
[2018-06-13 11:05] LABS: Appearance,Urine Turbid (Clear); Bacteria,Urine Occasional /hpf; Bilirubin,Urine Negative (Negative); Blood,Urine Small (Negative); Calcium Oxalate Crystals,Urine Occasional /hpf; Color,Urine Yellow; Glucose,Urine (UA) Negative (Negative); Ketones,Urine Negative (Negative); Leukocyte Esterase,Urine Large (Negative); Mucus,Urine Occasional /hpf; Nitrite,Urine Negative (Negative); Protein,Urine 1+ (Negative); RBC,Urine 10 /hpf (0-5); Squamous Epithelial Cell,Urine 3 /hpf (0-4); Urobilinogen,Urine <2.0 mg/dL (<2.0); WBC,Urine >182 /hpf (0-5)
[2018-06-13] MEDS ORDERED: CEPHALEXIN 500 MG CAP PO STA (11:09)
[2018-06-13 11:15] LABS: Amphetamine Screen,Urine Not Detected (NotDetected); Barbiturate Screen,Urine Not Detected (NotDetected); Benzodiazepines Screen,Urine Detected (NotDetected); Cocaine Screen,Urine Not Detected (NotDetected); Methadone Screen, Urine Not Detected (NotDetected); Opiate Screen,Urine Not Detected (NotDetected); Oxycodone Screen, Urine Detected (NotDetected); Phencyclidine Screen,Urine Not Detected (NotDetected); Tricyclic Antidepressant,Urine Not Detected (NotDetected); Urn Cannabinoid Scrn Not Detected (NotDetected)
[2018-06-13] MEDS ORDERED: oxyCODONE-APAP 5-325MG 1 EACH TAB PO STA (11:31)
[2018-06-13] MEDS ORDERED: LORazepam 2 MG/ML INJ IM STA (13:40)
[2018-06-13] MEDS ORDERED: diphenhydrAMINE 50 MG/ML 1 ML VIAL IM STA (14:24)
[2018-06-13 15:03] VITALS: BP 126/68; PULSE 122; TEMP 98.5
== END 2018-06-13 16:12 | disposition home or self-care (01) ==
LOC: EC 10:08
DX: N39.0 Urinary tract infection, site not specified (principal); F39 Unspecified mood [affective] disorder; R45.6 Violent behavior; L89.153 Pressure ulcer of sacral region, stage 3; I11.0 Hypertensive heart disease with heart failure; I50.9 Heart failure, unspecified; J44.9 Chronic obstructive pulmonary disease, unspecified; I25.10 Atherosclerotic heart disease of native coronary artery without angina pectoris; K22.70 Barrett's esophagus without dysplasia; G89.29 Other chronic pain; G40.909 Epilepsy, unspecified, not intractable, without status epilepticus; F32.9 Major depressive disorder, single episode, unspecified; F41.0 Panic disorder [episodic paroxysmal anxiety]; M06.9 Rheumatoid arthritis, unspecified; F17.200 Nicotine dependence, unspecified, uncomplicated; Z88.0 Allergy status to penicillin; Z88.1 Allergy status to other antibiotic agents; Z88.2 Allergy status to sulfonamides; Z88.5 Allergy status to narcotic agent; Z88.6 Allergy status to analgesic agent; Z88.8 Allergy status to other drugs, medicaments and biological substances; Z91.041 Radiographic dye allergy status; Z79.02 Long term (current) use of antithrombotics/antiplatelets; Z79.51 Long term (current) use of inhaled steroids; Z79.890 Hormone replacement therapy; Z79.891 Long term (current) use of opiate analgesic; Z79.899 Other long term (current) drug therapy; Z86.73 Personal history of transient ischemic attack (TIA), and cerebral infarction without residual deficits; Z96.643 Presence of artificial hip joint, bilateral; Z96.0 Presence of urogenital implants; Z96.651 Presence of right artificial knee joint; Z85.038 Personal history of other malignant neoplasm of large intestine; Z85.048 Personal history of other malignant neoplasm of rectum, rectosigmoid junction, and anus; Z90.49 Acquired absence of other specified parts of digestive tract; Z86.79 Personal history of other diseases of the circulatory system; Z95.828 Presence of other vascular implants and grafts; Z87.19 Personal history of other diseases of the digestive system; Z98.890 Other specified postprocedural states
CPT/HCPCS: 36415; 80053; 85025; 81001; 80306; 87086; 99285; 96372 ×2; G0480; J2060; J1200; 80320; 87077; 87186

== ENCOUNTER 2018-06-14 17:02 | Inpatient (IN) | payer MEDICARE, OTHER ==
--- NOTE | 2018-06-14 19:19 | ED ---
Psych HPI - General Source: patient, RN notes reviewed Mode of arrival: EMS - History of Present Illness MD Complaint: other <Michael Buchanan - Last Filed: 06/14/18 20:59> <Óscar Aviles - Last Filed: 06/14/18 23:04> - General Chief Complaint: Psychiatric Symptoms Stated Complaint: Mental Health Time Seen by Provider: 06/14/18 18:05 - History of Present Illness Initial Comments: Is a 73-year-old female history of multiple medical problems who is back today for evaluation for psychiatric evaluation. The patient having nightmares not sleeping very anxious she relates it to multiple factors including a wound that won't resolve on her coccyx also she relates to the fact that she and her used to live with a lady who she feels feet are very badly. She was seen here yesterday and diagnosed with a UTI. She is back today for reevaluation. She is uncooperative at times with staff members she initially seemed to have somewhat of a flight of ideas. She reports of fevers chills or sweats she complains of her coccyx wound as well as a forearm wound on her right wrist/dorsal forearm that she states it happened yesterday when she was at [facility] which she states was caused by paramedics. (Michael Buchanan) - Related Data Home Medications Medication Instructions Recorded Confirmed Baclofen [Lioresal] 10 mg PO TID@0900,1300,2100 02/22/16 06/14/18 Folic Acid 1 mg PO DAILY@1300 02/22/16 06/14/18 Lansoprazole 30 mg PO DAILY@0900 02/22/16 06/14/18 Levothyroxine Sodium [Synthroid] 25 mcg PO DAILY@0600 02/22/16 06/14/18 busPIRone HCL 15 mg PO BID@0900,209902/22/16 06/14/18 levETIRAcetam [Keppra] 500 mg PO BID@0900,209902/22/16 06/14/18 Albuterol Inhaler [Ventolin Hfa 2 puff INHALATION RT-Q6H PRN 12/07/17 06/14/18 Inhaler] Clopidogrel Bisulfate [Plavix] 75 mg PO DAILY@1700 04/23/18 06/14/18 ALPRAZolam [Xanax] 0.25 mg PO BID@1300,2100 05/14/18 06/14/18 Fluticasone/Vilanterol [Breo 1 puff INHALATION DAILY@0900 05/15/18 06/14/18 Ellipta 100-25 Mcg Inhaler] Metoprolol Tartrate [Lopressor] 12.5 mg PO BID@0900,2100 05/15/18 06/14/18 Mylanta 30 ml PO Q4H PRN 05/15/18 06/14/18 Nitroglycerin Sl Tabs [Nitrostat] 0.4 mg SL DIRECTED PRN 05/15/18 06/14/18 oxyCODONE HCL/ACETAMINOPHEN 1 tab PO TID@0600,1400,2200 05/15/18 06/14/18 [Endocet 5-325 mg] Acetaminophen Tab [Tylenol Tab] 650 mg PO Q4H PRN 06/13/18 06/14/18 Fluticasone Nasal [place] [Flonase 1 spray EA NOSTRIL DAILY@0900,209906/13/1807/01 Nasal [place]] Lactose-Reduced Food [Ensure Plus] 237 ml PO TID@0900,1300,209906/13/18 Loperamide [Imodium] 2 mg PO Q8H PRN 06/13/18 06/14/18 Potassium Chloride [Klor-Con 10] 10 meq PO BID@0900,2100 06/13/18 06/14/18 Sodium Chloride [Saline Nasal 1 spray EA NOSTRIL HS@209906/13/18 06/14/18 [place]] Melatonin 10 mg PO HS 06/14/18 06/14/18 Previous Rx's Medication Instructions Recorded Cephalexin [Keflex] 500 mg PO Q8HR #21 cap 06/13/18 Allergies Allergy/AdvReac Type Severity Reaction Status Date / Time amitriptyline Allergy Unknown Verified 06/14/18 18:18 aspirin Allergy Unknown Verified 06/14/18 18:18 ciprofloxacin [From Cipro] Allergy Unknown Verified 06/14/18 18:18 codeine Allergy Hallucinati Verified 06/14/18 18:18 [From Tylenol-Codeine #3] ons ezetimibe Allergy Unknown Verified 06/14/18 18:18 fluoxetine [From Prozac] Allergy Unknown Verified 06/14/18 18:18 ibuprofen [From Motrin] Allergy Unknown Verified 06/14/18 18:18 indomethacin [From Indocin] Allergy Unknown Verified 06/14/18 18:18 Iodinated Contrast- Oral and Allergy Unknown Verified 06/14/18 18:18 IV Dye niacin Allergy Unknown Verified 06/14/18 18:18 nitrofurantoin Allergy Unknown Verified 06/14/18 18:18 Penicillins Allergy Anaphylaxis Verified 06/14/18 18:18 pregabalin Allergy Unknown Verified 06/14/18 18:18 Lbroivg-Brf-Vde Reductase Allergy Unknown Verified 06/14/18 18:18 Inhibitor Sulfa (Sulfonamide AdvReac Nausea & Verified 06/14/18 18:18 Antibiotics) Vomiting & Diarrhea Review of Systems ROS Other: All systems not noted in ROS Statement are negative. <Michael Buchanan - Last Filed: 06/14/18 20:59> ROS Other: All systems not noted in ROS Statement are negative. <Óscar Aviles - Last Filed: 06/14/18 23:04> ROS Statement: Those systems with pertinent positive or pertinent negative responses have been documented in the HPI. Past Medical History Past Medical History: Coronary Artery Disease (CAD), Cancer, Heart Failure, COPD , CVA/TIA, Hyperlipidemia, Hypertension, Renal Disease, Rheumatoid Arthritis (RA ), Seizure Disorder, Skin Disorder, Thyroid Disorder, Vascular Disorder Additional Past Medical History / Comment(s): SACRAL WOUND STAGE 3 (WOUND [facility] ). Arceo catheter. DAMARI'S ESOPHAGUS. IBS. Colorectal/anal cancer 2011. FIBROMYALGIA. Peripheral vascular disease with previous stenting to the lower extremities. Chronic back pain. "Blood poisoning and bowel obtruction. "Rapid heart rate with SOB". Walker with wheels. 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 Bone removed and yaquelin placed left leg. Surgery for bowel obstruction x 2. Lyly cataracts Past Anesthesia/Blood Transfusion Reactions: No Reported Reaction Past Psychological History: Depression, Panic Disorder Smoking Status: Current every day smoker Past Alcohol Use History: None Reported Past Drug Use History: None Reported - Past Family History Mother History Unknown: Yes Family Medical History: CVA/TIA Father History Unknown: Yes Additional Family Medical History / Comment(s): father of blot clots 6months after cabg Daughter(s) Family Medical History: Cancer Additional Family Medical History / Comment(s): bone <DewayneMichael - Last Filed: 06/14/18 20:59> General Exam Limitations: no limitations General appearance: alert, in no apparent distress Head exam: Present: atraumatic, normocephalic, normal inspection Eye exam: Present: normal appearance, PERRL, EOMI. Absent: scleral icterus, conjunctival injection, periorbital swelling ENT exam: Present: mucous membranes dry Neck exam: Present: normal inspection. Absent: tenderness, meningismus, lymphadenopathy Respiratory exam: Present: normal lung sounds bilaterally. Absent: respiratory distress, wheezes, rales, rhonchi, stridor Cardiovascular Exam: Present: regular rate, normal rhythm, normal heart sounds. Absent: systolic murmur, diastolic murmur, rubs, gallop, clicks GI/Abdominal exam: Present: soft, normal bowel sounds. Absent: distended, tenderness, guarding, rebound, rigid Rectal exam: Present: other (I finally 2.5 cm diameter stage III ulcer the coccyx no overt drainage no erythema localized tenderness.) Extremities exam: Present: normal inspection, full ROM, normal capillary refill. Absent: tenderness, pedal edema, joint swelling, calf tenderness Back exam: Present: normal inspection Neurological exam: Present: alert, oriented X3, CN II-XII intact Psychiatric exam: Present: agitated, anxious Skin exam: Present: warm, dry, normal color. Absent: intact, rash <Michael Buchanan - Last Filed: 06/14/18 20:59> <Óscar Aviles - Last Filed: 06/14/18 23:04> - General Exam Comments Initial Comments: This a well-developed well-nourished awake alert anxious appearing female (Michael Buchanan) Course <Michael Buchanan - Last Filed: 06/14/18 20:59> <Óscar Aviles - Last Filed: 06/14/18 23:04> Vital Signs 06/14/18 06/14/18 06/14/18 17:05 17:36 21:00 Temperature 97.1 F L 98.3 F 97.7 F Pulse Rate 113 H Respiratory 20 Rate Blood Pressure 116/75 O2 Sat by Pulse 97 Oximetry - Reevaluation(s) Reevaluation #1: 06/14/18 21:00 Patient's care will be endorsed to Dr. Aviles at our shift change. (Michael Buchanan) Reevaluation #2: 06/14/18 23:03 Patient was made medically cleared and seen evaluated by psychiatry here in the emergency department, was not deemed admissible for psychiatric criteria at this time (Óscar Aviles) Medical Decision Making - Lab Data Result diagrams: 06/14/18 19:10 06/14/18 19:10 <Michael Buchanan - Last Filed: 06/14/18 20:59> - Lab Data Result diagrams: 06/14/18 19:10 06/14/18 19:10 <Óscar Aviles - Last Filed: 06/14/18 23:04> - Medical Decision Making 73 female to be admitted for urinary tract infection feeling outpatient treatment, IV antibiotics and further psychiatric evaluation (Óscar Aviles) - Lab Data Lab Results 06/14/18 06/14/18 06/14/18 Range/Units 19:10 19:10 19:10 WBC 7.5 (3.8-10.6) k/uL RBC 4.01 (3.80-5.40) m/uL Hgb 11.9 (11.4-16.0) gm/dL Hct 36.5 (34.0-46.0) % MCV 91.0 (80.0-100.0) fL MCH 29.7 (25.0-35.0) pg MCHC 32.6 (31.0-37.0) g/dL RDW 16.1 H (11.5-15.5) % Plt Count 340 (150-450) k/uL Neutrophils % 73 % Lymphocytes % 12 % Monocytes % 8 % Eosinophils % 3 % Basophils % 0 % Neutrophils # 5.5 (1.3-7.7) k/uL Lymphocytes # 0.9 L (1.0-4.8) k/uL Monocytes # 0.6 (0-1.0) k/uL Eosinophils # 0.2 (0-0.7) k/uL Basophils # 0.0 (0-0.2) k/uL Anisocytosis Slight Sodium 140 (137-145) mmol/L Potassium 4.5 (3.5-5.1) mmol/L Chloride 108 H (98-107) mmol/L Carbon Dioxide 21 L (22-30) mmol/L Anion Gap 11 mmol/L BUN 25 H (7-17) mg/dL Creatinine 1.23 H (0.52-1.04) mg/dL Est GFR (CKD-EPI)AfAm 51 (>60 ml/min/1.73 sqM) Est GFR (CKD-EPI)NonAf 44 (>60 ml/min/1.73 sqM) Glucose 85 (74-99) mg/dL Plasma Lactic Acid Juan (0.7-2.0) mmol/L Calcium 10.4 H (8.4-10.2) mg/dL Magnesium 2.0 (1.6-2.3) mg/dL Total Bilirubin 0.6 (0.2-1.3) mg/dL AST 39 H (14-36) U/L ALT 28 (9-52) U/L Alkaline Phosphatase 110 (38-126) U/L Ammonia (<30) umol/L Total Creatine Kinase 452 H (30-135) U/L CK-MB (CK-2) 1.7 (0.0-2.4) ng/mL CK-MB (CK-2) Rel Index 0.4 Total Protein 6.8 (6.3-8.2) g/dL Albumin 4.0 (3.5-5.0) g/dL Amylase 81 (30-110) U/L Lipase 128 (23-300) U/L TSH 1.830 (0.465-4.680) mIU/L Urine Color Urine Appearance (Clear) Urine pH (5.0-8.0) Ur Specific [place] (1.001-1.035) Urine Protein (Negative) Urine Glucose (UA) (Negative) Urine Ketones (Negative) Urine Blood (Negative) Urine Nitrite (Negative) Urine Bilirubin (Negative) Urine Urobilinogen (<2.0) mg/dL Ur Leukocyte Esterase (Negative) Urine RBC (0-5) /hpf Urine WBC (0-5) /hpf Ur Squamous Epith Cells (0-4) /hpf Calcium Oxalate Crystal (None) /hpf Urine Bacteria (None) /hpf Urine Mucus (None) /hpf Urine Opiates Screen (NotDetected) Ur Oxycodone Screen (NotDetected) Urine Methadone Screen (NotDetected) Ur Propoxyphene Screen (NotDetected) Ur Barbiturates Screen (NotDetected) U Tricyclic Antidepress (NotDetected) Ur Phencyclidine Scrn (NotDetected) Ur Amphetamines Screen (NotDetected) U Methamphetamines Scrn (NotDetected) U Benzodiazepines Scrn (NotDetected) Urine Cocaine Screen (NotDetected) U Marijuana (THC) Screen (NotDetected) Serum Alcohol <10 mg/dL 06/14/18 06/14/18 Range/Units 19:11 19:18 WBC (3.8-10.6) k/uL RBC (3.80-5.40) m/uL Hgb (11.4-16.0) gm/dL Hct (34.0-46.0) % MCV (80.0-100.0) fL MCH (25.0-35.0) pg MCHC (31.0-37.0) g/dL RDW (11.5-15.5) % Plt Count (150-450) k/uL Neutrophils % % Lymphocytes % % Monocytes % % Eosinophils % % Basophils % % Neutrophils # (1.3-7.7) k/uL Lymphocytes # (1.0-4.8) k/uL Monocytes # (0-1.0) k/uL Eosinophils # (0-0.7) k/uL Basophils # (0-0.2) k/uL Anisocytosis Sodium (137-145) mmol/L Potassium (3.5-5.1) mmol/L Chloride (98-107) mmol/L Carbon Dioxide (22-30) mmol/L Anion Gap mmol/L BUN (7-17) mg/dL Creatinine (0.52-1.04) mg/dL Est GFR (CKD-EPI)AfAm (>60 ml/min/1.73 sqM) Est GFR (CKD-EPI)NonAf (>60 ml/min/1.73 sqM) Glucose (74-99) mg/dL Plasma Lactic Acid Juan 1.0 (0.7-2.0) mmol/L Calcium (8.4-10.2) mg/dL Magnesium (1.6-2.3) mg/dL Total Bilirubin (0.2-1.3) mg/dL AST (14-36) U/L ALT (9-52) U/L Alkaline Phosphatase (38-126) U/L Ammonia 18 (<30) umol/L Total Creatine Kinase (30-135) U/L CK-MB (CK-2) (0.0-2.4) ng/mL CK-MB (CK-2) Rel Index Total Protein (6.3-8.2) g/dL Albumin (3.5-5.0) g/dL Amylase (30-110) U/L Lipase (23-300) U/L TSH (0.465-4.680) mIU/L Urine Color Yellow Urine Appearance Cloudy H (Clear) Urine pH 5.5 (5.0-8.0) Ur Specific [place] 1.025 (1.001-1.035) Urine Protein 1+ H (Negative) Urine Glucose (UA) Negative (Negative) Urine Ketones Negative (Negative) Urine Blood Trace H (Negative) Urine Nitrite Positive H (Negative) Urine Bilirubin Negative (Negative) Urine Urobilinogen 2.0 (<2.0) mg/dL Ur Leukocyte Esterase Large H (Negative) Urine RBC 5 (0-5) /hpf Urine WBC 63 H (0-5) /hpf Ur Squamous Epith Cells 1 (0-4) /hpf Calcium Oxalate Crystal Occasional H (None) /hpf Urine Bacteria Rare H (None) /hpf Urine Mucus Rare H (None) /hpf Urine Opiates Screen Not Detected (NotDetected) Ur Oxycodone Screen Detected H (NotDetected) Urine Methadone Screen Not Detected (NotDetected) Ur Propoxyphene Screen Not Detected (NotDetected) Ur Barbiturates Screen Not Detected (NotDetected) U Tricyclic Antidepress Not Detected (NotDetected) Ur Phencyclidine Scrn Not Detected (NotDetected) Ur Amphetamines Screen Not Detected (NotDetected) U Methamphetamines Scrn Not Detected (NotDetected) U Benzodiazepines Scrn Detected H (NotDetected) Urine Cocaine Screen Not Detected (NotDetected) U Marijuana (THC) Screen Not Detected (NotDetected) Serum Alcohol mg/dL Disposition <Michael Buchanan - Last Filed: 06/14/18 20:59> Is patient prescribed a controlled substance at d/c from ED?: No <Óscar Aviles - Last Filed: 06/14/18 23:04> Clinical Impression: Weakness, Mood disorder, UTI (urinary tract infection), Failure of outpatient treatment Disposition: ADMITTED IP TO THIS HOSP Condition: Fair Referrals: Carolyn Delaney MD [Primary Care Provider] - 1-2 days
[2018-06-14 19:41] LABS: Anisocytosis Slight; Basophils % (A) 0 %; Eosinophils # (A) 0.2 k/uL (0-0.7); Eosinophils % (A) 3 %; HCT 36.5 % (34.0-46.0); HGB 11.9 gm/dL (11.4-16.0); Lymphocytes # (A) 0.9 k/uL (1.0-4.8); Lymphocytes % (A) 12 %; MCH 29.7 pg (25.0-35.0); MCHC 32.6 g/dL (31.0-37.0); Mean Platelet Volume 7.6; Monocytes # (A) 0.6 k/uL (0-1.0); Monocytes % (A) 8 %; Neutrophils # (A) 5.5 k/uL (1.3-7.7); Neutrophils % (A) 73 %; Platelet Count 340 k/uL (150-450); RBC 4.01 m/uL (3.80-5.40); RDW 16.1 % (11.5-15.5); WBC 7.5 k/uL (3.8-10.6)
[2018-06-14 19:44] LABS: Appearance,Urine Cloudy (Clear); Bacteria,Urine Rare /hpf; Bilirubin,Urine Negative (Negative); Blood,Urine Trace (Negative); Calcium Oxalate Crystals,Urine Occasional /hpf; Color,Urine Yellow; Glucose,Urine (UA) Negative (Negative); Ketones,Urine Negative (Negative); Leukocyte Esterase,Urine Large (Negative); Mucus,Urine Rare /hpf; Nitrite,Urine Positive (Negative); PH, Urine 5.5 (5.0-8.0); Protein,Urine 1+ (Negative); RBC,Urine 5 /hpf (0-5); Specific Gravity,Urine 1.025 (1.001-1.035); Squamous Epithelial Cell,Urine 1 /hpf (0-4)
[2018-06-14 19:51] LABS: ALT 28 U/L (9-52); AST 39 U/L (14-36); Alcohol <10 mg/dL; Alkaline Phosphatase 110 U/L (38-126); Amylase 81 U/L (30-110); Anion Gap 11 mmol/L; Blood Urea Nitrogen 25 mg/dL (7-17); Calcium 10.4 mg/dL (8.4-10.2); Carbon Dioxide 21 mmol/L (22-30); Chloride 108 mmol/L (98-107); Glucose 85 mg/dL (74-99); Lipase 128 U/L (23-300); Potassium 4.5 mmol/L (3.5-5.1); Sodium 140 mmol/L (137-145); Total Bilirubin 0.6 mg/dL (0.2-1.3); Total Protein 6.8 g/dL (6.3-8.2)
[2018-06-14 19:52] LABS: Amphetamine Screen,Urine Not Detected (NotDetected); Barbiturate Screen,Urine Not Detected (NotDetected); Benzodiazepines Screen,Urine Detected (NotDetected); Cocaine Screen,Urine Not Detected (NotDetected); Methadone Screen, Urine Not Detected (NotDetected); Opiate Screen,Urine Not Detected (NotDetected); Oxycodone Screen, Urine Detected (NotDetected); Phencyclidine Screen,Urine Not Detected (NotDetected); Tricyclic Antidepressant,Urine Not Detected (NotDetected); Urn Cannabinoid Scrn Not Detected (NotDetected)
[2018-06-14 20:16] LABS: Creatine Kinase MB 1.7 ng/mL (0.0-2.4)
--- NOTE | 2018-06-14 20:25 | CT ---
EXAMINATION TYPE: CT brain wo con DATE OF EXAM: 06/14/2018 HISTORY: Altered mental status CT DLP: 1099.4 mGycm. Automated Exposure Control for Dose Reduction was Utilized. TECHNIQUE: CT scan of the head is performed without contrast. COMPARISON: CT brain February 07, 2011. FINDINGS: There is no acute intracranial hemorrhage or midline shift identified. There is diffuse v entricular and sulcal prominence consistent with diffuse age-related cerebral atrophy. Atrophy is sli ghtly more prominent over the bilateral frontal lobes similar to prior. There is low-attenuation in t he periventricular white matter consistent with chronic small vessel ischemic change. Old lacunar inf arct left head of caudate nucleus axial image 24 is redemonstrated. The globes are intact and the vis ualized sinuses are clear. IMPRESSION: No acute intracranial hemorrhage or midline shift. There is mild to moderate diffuse ag e-related cerebral atrophy most prominent over bilateral frontal lobes and mild chronic small vessel ischemic change with old left-sided lacunar infarct all redemonstrated. No significant change from p rior CT.
--- NOTE | 2018-06-14 20:30 | XR ---
EXAMINATION TYPE: XR chest 1V DATE OF EXAM: 06/14/2018 COMPARISON: Prior chest x-ray June 10, 2016 HISTORY: Cough per order. TECHNIQUE: Single frontal view of the chest is obtained. FINDINGS: Exam is suboptimal due to rotation. In addition there is overlying clothing material causin g edge in the left lung with lung markings peripheral to this noted. There is chronic parenchymal luis enrique nge without suspicious focal air space opacity, pleural effusion, or pneumothorax seen. The cardiac silhouette size remains within normal limits. The osseous structures are somewhat demineralized. IMPRESSION: Suboptimal study without new acute pulmonary process.
[2018-06-14] MEDS ORDERED: cefTRIAXone 2,000 MG in SODIUM CHLORIDE 0.9% 100 ML IVPB STA (22:21)
[2018-06-14] MEDS ORDERED: SODIUM CHLORIDE 0.9% 1,000 ML IV ONE (23:00)
[2018-06-15] MEDS ORDERED: ALBUTEROL NEBULIZED 2.5 MG/3 ML INHALATION PRN (01:14)
[2018-06-15] MEDS: oxyCODONE-APAP 5-325MG 1 EACH TAB PO SCH ×4 (02:29→22:05)
[2018-06-15] MEDS ORDERED: ALPRAZolam 0.25 MG TAB PO STA (03:04)
[2018-06-15] MEDS ORDERED: MELATONIN 5 MG TABLET PO SCH (05:32)
[2018-06-15] MEDS: LEVOTHYROXINE 25 MCG TAB PO SCH (05:49)
[2018-06-15] MEDS: PANTOPRAZOLE 40 MG TABLET PO SCH (07:15)
[2018-06-15] MEDS: busPIRone HCl 5 MG TAB PO SCH ×2 (07:15→21:36)
[2018-06-15] MEDS: BACLOFEN 10 MG TAB PO SCH ×3 (07:15→21:35)
[2018-06-15] MEDS: levETIRAcetam 500 MG TAB PO SCH ×2 (07:15→21:36)
[2018-06-15] MEDS: ENOXAPARIN 40 MG/0.4 ML SYRINGE SQ SCH (07:16)
[2018-06-15] MEDS ORDERED: NON-FORMULARY DRUG (Lactose-Reduced Food [Ensure Plus] 237 ML) PO SCH (09:00)
[2018-06-15] MEDS ORDERED: FLUoxetine HCL 20 MG CAP PO SCH (09:00)
[2018-06-15] MEDS ORDERED: METOPROLOL TARTRATE 12.5 MG TAB PO SCH (09:00)
[2018-06-15] MEDS: SYMBICORT 80-4.5 MCG INHALER INHALATION SCH (11:41)
[2018-06-15] MEDS: ATENOLOL 12.5 MG TAB PO SCH ×2 (11:42→21:35)
[2018-06-15] MEDS: ALPRAZolam 0.25 MG TAB PO SCH ×2 (11:42→21:35)
[2018-06-15] MEDS: FOLIC ACID 1 MG TAB PO SCH (11:42)
[2018-06-15] MEDS: FLUTICASONE 50MCG/SPRAY NASAL 16GM EA NOSTRIL SCH ×2 (11:42→21:36)
--- NOTE | 2018-06-15 12:29 | P.HPIM ---
History of Present Illness H&P Date: 06/15/18 Chief Complaint: UTI This is a 73-year-old female one of Dr. Delaney's patient with a known history of colorectal cancer, recurrent UTIs, COPD, depression, chronic decub in the sacral area and hypothyroidism. Patient was recently seen in the emergency department yesterday for aggressive and combative behavior at [facility]. She was found have a urinary tract infection and was prescribed antibiotics and sent back to [facility]. [facility] apparently sent the patient back to the emergency department again for mood disturbances. She is admitted for urinary tract infection and for psychiatric evaluation. Vital signs are stable , blood pressure 133/84, she remains afebrile heart rate 106, 96% on room air. WBC 7.5, hemoglobin 11.9, sodium 140, BUN 25, creatinine 1.23. Urine positive for urinary tract infection, urine culture was sent. Patient evaluated today, reports she has not been sleeping. She does have a sitter at the bedside. Psychiatry consulted, medications were adjusted, trazodone 100 mg at bedtime and fluoxetine 20 mg daily added. Wound VAC ordered for the sacral decub, she follows up at the wound center with Dr. Montejo on regular basis. Review of Systems Constitutional: Denies chills, Denies fatigue, Denies fever Ears, nose, mouth and throat: Denies headache, Denies nasal congestion, Denies nasal discharge, Denies sinus pain, Denies sinus pressure Cardiovascular: Denies dyspnea on exertion, Denies edema, Denies orthopnea, Denies palpitations, Denies shortness of breath, Denies syncope Respiratory: Denies congestion, Denies cough, Denies dyspnea, Denies wheezing Gastrointestinal: Denies constipation, Denies diarrhea, Denies dyspepsia, Denies nausea, Denies vomiting Genitourinary: Denies flank pain, Denies urgency, Denies urinary frequency Musculoskeletal: Denies myalgias, Denies neck pain Integumentary: Denies lesions, Denies pruritus, Denies rash Neurological: Denies confusion, Denies convulsions, Denies headaches, Denies paralysis, Denies paresthesias, Denies seizures, Denies syncope, Denies weakness Psychiatric: Reports anxiety, Reports anxiety attacks, Reports insomnia, Reports irritability, Reports mood swings, Reports sleep disturbances, Denies hallucinations, Denies suicidal ideation Endocrine: Denies fatigue, Denies palpitations Past Medical History Past Medical History: Coronary Artery Disease (CAD), Cancer, Heart Failure, COPD , CVA/TIA, Hyperlipidemia, Hypertension, Renal Disease, Rheumatoid Arthritis (RA ), Seizure Disorder, Skin Disorder, Thyroid Disorder, Vascular Disorder Additional Past Medical History / Comment(s): SACRAL WOUND STAGE 3 (WOUND CLIN[facility] ). Arceo catheter. DAMARI'S ESOPHAGUS. IBS. Colorectal/anal cancer 2011. FIBROMYALGIA. Peripheral vascular disease with previous stenting to the lower extremities. Chronic back pain. "Blood poisoning and bowel obtruction. "Rapid heart rate with SOB". Walker with wheels. History of Any Multi-Drug Resistant Organisms: VRE Date of last positivie culture/infection: 12/07/17 MDRO Source:: URINE VRE Past Surgical History: Appendectomy, Back Surgery, Bowel Resection, Hysterectomy , Joint Replacement, Orthopedic Surgery Additional Past Surgical History / Comment(s): Machine Stamper knee replacement &lyly hip replacement. Bone removed and yaquelin placed left leg. Surgery for bowel obstruction x 2. Lyly cataracts Past Anesthesia/Blood Transfusion Reactions: No Reported Reaction Past Psychological History: Depression, Panic Disorder Smoking Status: Former smoker Past Alcohol Use History: None Reported Additional Past Alcohol Use History / Comment(s): smoked since age 21, < 1 PPD. states quit smoking 8 months ago Past Drug Use History: None Reported - Past Family History Mother History Unknown: Yes Family Medical History: CVA/TIA Father History Unknown: Yes Additional Family Medical History / Comment(s): father of blot clots 6months after cabg Daughter(s) Family Medical History: Cancer Additional Family Medical History / Comment(s): bone Medications and Allergies Home Medications Medication Instructions Recorded Confirmed Type Baclofen [Lioresal] 10 mg PO TID@0900,1300,2100 02/22/16 06/14/18 History Folic Acid 1 mg PO DAILY@1300 02/22/16 06/14/18 History Lansoprazole 30 mg PO DAILY@0900 02/22/16 06/14/18 History Levothyroxine Sodium [Synthroid] 25 mcg PO DAILY@0600 02/22/16 06/14/18 History busPIRone HCL 15 mg PO BID@0900,2100 02/22/16 06/14/18 History levETIRAcetam [Keppra] 500 mg PO BID@0900,2100 02/22/16 06/14/18 History Albuterol Inhaler [Ventolin Hfa 2 puff INHALATION RT-Q6H PRN 12/07/17 06/14/18 History Inhaler] Clopidogrel Bisulfate [Plavix] 75 mg PO DAILY@1700 04/23/18 06/14/18 History ALPRAZolam [Xanax] 0.25 mg PO BID@1300,209905/14/18 06/14/18 History Fluticasone/Vilanterol [Breo 1 puff INHALATION DAILY@0900 05/15/18 06/14/18 History Ellipta 100-25 Mcg Inhaler] Metoprolol Tartrate [Lopressor] 12.5 mg PO BID@0900,209905/15/18 06/14/18 History Mylanta 30 ml PO Q4H PRN 05/15/18 06/14/18 History Nitroglycerin Sl Tabs [Nitrostat] 0.4 mg SL DIRECTED PRN 05/15/18 06/14/18 History oxyCODONE HCL/ACETAMINOPHEN 1 tab PO TID@0600,1400,2200 05/15/18 06/14/18 History [Endocet 5-325 mg] Acetaminophen Tab [Tylenol Tab] 650 mg PO Q4H PRN 06/13/18 06/14/18 History Cephalexin [Keflex] 500 mg PO Q8HR #21 cap 06/13/18 06/14/18 Rx Fluticasone Nasal [place] [Flonase 1 spray EA NOSTRIL DAILY@0900,209906/13/1807/01 History Nasal [place]] Lactose-Reduced Food [Ensure Plus] 237 ml PO TID@0900,1300,209906/13/18 History Loperamide [Imodium] 2 mg PO Q8H PRN 06/13/18 06/14/18 History Potassium Chloride [Klor-Con 10] 10 meq PO BID@0900,209906/13/18 06/14/18 History Sodium Chloride [Saline Nasal 1 spray EA NOSTRIL HS@209906/13/18 06/14/18 History [place]] Melatonin 10 mg PO HS 06/14/18 06/14/18 History Allergies Allergy/AdvReac Type Severity Reaction Status Date / Time amitriptyline Allergy Unknown Verified 06/14/18 18:18 aspirin Allergy Unknown Verified 06/14/18 18:18 ciprofloxacin [From Cipro] Allergy Unknown Verified 06/14/18 18:18 codeine Allergy Hallucinati Verified 06/14/18 18:18 [From Tylenol-Codeine #3] ons ezetimibe Allergy Unknown Verified 06/14/18 18:18 fluoxetine [From Prozac] Allergy Unknown Verified 06/14/18 18:18 ibuprofen [From Motrin] Allergy Unknown Verified 06/14/18 18:18 indomethacin [From Indocin] Allergy Unknown Verified 06/14/18 18:18 Iodinated Contrast- Oral and Allergy Unknown Verified 06/14/18 18:18 IV Dye niacin Allergy Unknown Verified 06/14/18 18:18 nitrofurantoin Allergy Unknown Verified 06/14/18 18:18 Penicillins Allergy Anaphylaxis Verified 06/14/18 18:18 pregabalin Allergy Unknown Verified 06/14/18 18:18 Lyurvtg-Njm-Iah Reductase Allergy Unknown Verified 06/14/18 18:18 Inhibitor Sulfa (Sulfonamide AdvReac Nausea & Verified 06/14/18 18:18 Antibiotics) Vomiting & Diarrhea Physical Exam Vitals: Vital Signs Temp Pulse Pulse Resp BP BP Pulse Ox 06/15/18 07:05 97.9 F 106 H 16 133/84 96 06/15/18 00:25 97.8 F 116 H 16 149/77 94 L 06/14/18 23:00 97.8 F 85 20 119/71 97 06/14/18 21:00 97.7 F 113 H 20 116/75 97 06/14/18 17:36 98.3 F 06/14/18 17:05 97.1 F L Intake and Output 06/14/18 06/15/18 06/15/18 22:59 06:59 14:59 Intake Total 600 Output Total 400 Balance 200 Intake: Intake, IV Titration 600 Amount Sodium Chloride 0.9% 1, 500 000 ml @ 100 mls/hr IV . Q10H ONE Rx#:[id number] cefTRIAXone 2,000 mg In 100 Sodium Chloride 0.9% 100 ml @ 100 mls/hr IVPB ONCE STA Rx#:[id number] Output: Urine 400 Uretheral (Arceo) 400 Other: Voiding Method Indwelling Catheter Indwelling Catheter Weight 56.699 kg - Constitutional General appearance: no acute distress - EENT Eyes: EOMI, PERRLA ENT: hearing grossly normal - Neck Neck: no lymphadenopathy, normal ROM, no rigidity, no stridor, no thyromegaly - Respiratory Respiratory: bilateral: CTA, negative: diminished, dullness, rales, rhonchi, wheezing - Cardiovascular Rhythm: regular Heart sounds: normal: S1, S2 - Gastrointestinal General gastrointestinal: no distended, no hepatomegaly, normal bowel sounds, no organomegaly, soft, no tenderness - Genitourinary Arceo catheter in place - Integumentary Chronic sacral pressure ulcer with bone exposure - Neurologic Neurologic: CNII-XII intact - Musculoskeletal Musculoskeletal: generalized weakness, strength equal bilaterally, no right sided weakness, no left sided weakness - Psychiatric Psychiatric: A&O x's 3 Results CBC & Chem 7: 06/14/18 19:10 06/14/18 19:10 Labs: Abnormal Lab Results - Last 24 Hours (Table) 06/14/18 06/14/18 06/14/18 Range/Units 19:10 19:10 19:10 RDW 16.1 H (11.5-15.5) % Lymphocytes # 0.9 L (1.0-4.8) k/uL Chloride 108 H (98-107) mmol/L Carbon Dioxide 21 L (22-30) mmol/L BUN 25 H (7-17) mg/dL Creatinine 1.23 H (0.52-1.04) mg/dL Calcium 10.4 H (8.4-10.2) mg/dL AST 39 H (14-36) U/L Total Creatine Kinase 452 H (30-135) U/L Urine Appearance (Clear) Urine Protein (Negative) Urine Blood (Negative) Urine Nitrite (Negative) Ur Leukocyte Esterase (Negative) Urine WBC (0-5) /hpf Calcium Oxalate Crystal (None) /hpf Urine Bacteria (None) /hpf Urine Mucus (None) /hpf Ur Oxycodone Screen (NotDetected) U Benzodiazepines Scrn (NotDetected) 06/14/18 Range/Units 19:18 RDW (11.5-15.5) % Lymphocytes # (1.0-4.8) k/uL Chloride (98-107) mmol/L Carbon Dioxide (22-30) mmol/L BUN (7-17) mg/dL Creatinine (0.52-1.04) mg/dL Calcium (8.4-10.2) mg/dL AST (14-36) U/L Total Creatine Kinase (30-135) U/L Urine Appearance Cloudy H (Clear) Urine Protein 1+ H (Negative) Urine Blood Trace H (Negative) Urine Nitrite Positive H (Negative) Ur Leukocyte Esterase Large H (Negative) Urine WBC 63 H (0-5) /hpf Calcium Oxalate Crystal Occasional H (None) /hpf Urine Bacteria Rare H (None) /hpf Urine Mucus Rare H (None) /hpf Ur Oxycodone Screen Detected H (NotDetected) U Benzodiazepines Scrn Detected H (NotDetected) Microbiology - Last 24 Hours (Table) 06/14/18 19:14 Gram Stain - Preliminary Arm - Right Wound Culture - Preliminary 06/14/18 19:38 Anaerobic Culture - Preliminary Arm - Right Thrombosis Risk Factor Assmnt - Choose All That Apply Any of the Below Risk Factors Present?: Yes Each Factor Represents 1 point: Abnormal pulmonary function (COPD) Other Risk Factors: Yes Each Risk Factor Represents 2 Points: Age 61-74 years Other congenital or acquired thrombophilia - If yes, enter type in comment: No Thrombosis Risk Factor Assessment Total Risk Factor Score: 3 Thrombosis Risk Factor Assessment Level: Moderate Risk Assessment and Plan Plan: 1. Urinary tract infection. Urine culture obtained, will do ceftriaxone 50ml Q24 hours 2. Chronic depression, anxiety and panic attacks. Sitter at bedside, psychiatry consulted, will continue with BuSpar 15 mg twice a day, fluoxetine 20 mg and trazodone 100 mg added 3. Insomnia: Trazodone 100 mg at at bedtime 4. Chronic Sacral ulcer: Follows up in wound center on a regular basis with Dr. Montejo, wound VAC ordered, will continue with wound care 5. Chronic pain syndrome. Continue with Percocet 6. Hypertension. Atenolol 12.5 mg twice a day 7. Hyperlipidemia 8. Seizure. Continue home medication of Keppra 500 mg twice a day 9. Hypothyroidism. Continue with levothyroxine 25 g daily DVT/GI prophylaxis: Lovenox and Protonix The above impression and plan of care have been discussed and directed by signing physician. Heather Tejeda nurse practitioner acting as scribe for signing physician.
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
[2018-06-15] MEDS: CLOPIDOGREL 75 MG TAB PO SCH (17:53)
[2018-06-15] MEDS: MELATONIN 5 MG TABLET PO SCH (21:36)
[2018-06-15] MEDS: MIRTAZAPINE 15 MG TAB PO SCH (21:37)
[2018-06-15] MEDS: SODIUM CHLORIDE 0.65% NASAL SPRAY 44 ML BTL NASAL SCH (21:37)
[2018-06-15] MEDS: traZODone HCL 100 MG TAB PO SCH (21:37)
[2018-06-16] MEDS: oxyCODONE-APAP 5-325MG 1 EACH TAB PO SCH ×3 (05:47→22:18)
[2018-06-16] MEDS: LEVOTHYROXINE 25 MCG TAB PO SCH (05:47)
[2018-06-16] MEDS: BACLOFEN 10 MG TAB PO SCH ×3 (08:09→22:18)
[2018-06-16] MEDS: busPIRone HCl 5 MG TAB PO SCH ×2 (08:09→22:20)
[2018-06-16] MEDS: ENOXAPARIN 40 MG/0.4 ML SYRINGE SQ SCH (08:09)
[2018-06-16] MEDS: FLUTICASONE 50MCG/SPRAY NASAL 16GM EA NOSTRIL SCH ×2 (08:09→22:21)
[2018-06-16] MEDS: levETIRAcetam 500 MG TAB PO SCH ×2 (08:10→22:22)
[2018-06-16] MEDS: PANTOPRAZOLE 40 MG TABLET PO SCH (08:10)
[2018-06-16] MEDS: ATENOLOL 12.5 MG TAB PO SCH ×2 (08:11→22:21)
--- NOTE | 2018-06-16 11:42 | P.PN ---
Subjective Progress Note Date: 06/16/18 This is a 73-year-old female one of Dr. Delaney's patient with a known history of colorectal cancer, recurrent UTIs, COPD, depression, chronic decub in the sacral area and hypothyroidism. Patient was recently seen in the emergency department yesterday for aggressive and combative behavior at [facility]. She was found have a urinary tract infection and was prescribed antibiotics and sent back to [facility]. [facility] apparently sent the patient back to the emergency department again for mood disturbances. She is admitted for urinary tract infection and for psychiatric evaluation. Vital signs are stable , blood pressure 133/84, she remains afebrile heart rate 106, 96% on room air. WBC 7.5, hemoglobin 11.9, sodium 140, BUN 25, creatinine 1.23. Urine positive for urinary tract infection, urine culture was sent. Patient evaluated today, reports she has not been sleeping. She does have a sitter at the bedside. Psychiatry consulted, medications were adjusted, trazodone 100 mg at bedtime and fluoxetine 20 mg daily added. Wound VAC ordered for the sacral decub, she follows up at the wound center with Dr. Montejo on regular basis. 06/16: Patient has been afebrile, pulse ranging between 66 and 98, blood pressure 89/48, pulse ox 93% on room air. Urine culture showing gram-negative bacilli and patient is on ceftriaxone. Arm wound culture which is believed to be coccyx decub wound culture is showing presumptive staph aureus. Patient is complaining of left hip pain after a fall at [facility]. X-rays apparently were done at the time of the fall which were negative. Patient continues to have pain and repeat x-ray will be obtained. Discharge plan will be to return to [facility]. Patient is followed by PT and OT. Review of Systems Constitutional: Denies chills, Denies fatigue, Denies fever Ears, nose, mouth and throat: Denies headache, Denies nasal congestion, Denies nasal discharge, Denies sinus pain, Denies sinus pressure Cardiovascular: Denies dyspnea on exertion, Denies edema, Denies orthopnea, Denies palpitations, Denies shortness of breath, Denies syncope Respiratory: Denies congestion, Denies cough, Denies dyspnea, Denies wheezing Gastrointestinal: Denies constipation, Denies diarrhea, Denies dyspepsia, Denies nausea, Denies vomiting Genitourinary: Denies flank pain, Denies urgency, Denies urinary frequency Musculoskeletal: Denies myalgias, Denies neck pain, reports left hip pain Integumentary: Denies lesions, Denies pruritus, Denies rash Neurological: Denies confusion, Denies convulsions, Denies headaches, Denies paralysis, Denies paresthesias, Denies seizures, Denies syncope, Denies weakness Psychiatric: Reports anxiety, Reports anxiety attacks, Reports insomnia, Reports irritability, Reports mood swings, Reports sleep disturbances, Denies hallucinations, Denies suicidal ideation Endocrine: Denies fatigue, Denies palpitations Objective - Vital Signs Vital signs: Vital Signs Temp 98.3 F 06/16/18 00:00 Pulse 70 06/16/18 00:00 Resp 16 06/16/18 00:00 BP 94/54 06/16/18 00:00 Pulse Ox 95 06/16/18 00:00 Intake & Output 06/15/18 06/16/18 06/16/18 18:59 06:59 18:59 Intake Total 1000 1000 Output Total 300 Balance 700 1000 Intake: Intake, IV Titration 900 1000 Amount Sodium Chloride 0.9% 1, 900 1000 000 ml @ 100 mls/hr IV . Q10H ONE Rx#:[id number] Oral 100 Output: Urine 300 Uretheral (Arceo) 300 Other: Voiding Method Indwelling Catheter Indwelling Catheter # Bowel Movements 1 - Exam General appearance: no acute distress, patient resting in bed - EENT Eyes: EOMI, PERRLA ENT: hearing grossly normal - Neck Neck: no lymphadenopathy, normal ROM, no rigidity, no stridor, no thyromegaly - Respiratory Respiratory: bilateral: CTA, negative: diminished, dullness, rales, rhonchi, wheezing - Cardiovascular Rhythm: regular Heart sounds: normal: S1, S2 - Gastrointestinal General gastrointestinal: no distended, no hepatomegaly, normal bowel sounds, no organomegaly, soft, no tenderness - Genitourinary Arceo catheter in place - Integumentary Chronic sacral pressure ulcer with bone exposure - Neurologic Neurologic: CNII-XII intact - Musculoskeletal Musculoskeletal: generalized weakness, strength equal bilaterally, no right sided weakness, no left sided weakness - Psychiatric Psychiatric: A&O x's 3 - Labs CBC & Chem 7: 06/14/18 19:10 06/14/18 19:10 Labs: Microbiology - Last 24 Hours (Table) 06/14/18 19:18 Urine Culture - Preliminary Urine,Voided Gram Neg Bacilli 06/14/18 19:14 Gram Stain - Preliminary Arm - Right Wound Culture - Preliminary Presumptive Staph aureus Assessment and Plan Plan: 1. Urinary tract infection. Urine culture in progress, will do ceftriaxone Q24 hours 2. Chronic depression, anxiety and panic attacks. Sitter at bedside, psychiatry consulted, will continue with BuSpar 15 mg twice a day, fluoxetine 20 mg and trazodone 100 mg added 3. Insomnia: Trazodone 100 mg at at bedtime 4. Chronic Sacral ulcer: Follows up in wound center on a regular basis with Dr. Montejo, wound VAC ordered, will continue with wound care 5. Chronic pain syndrome. Continue with Percocet 6. Hypertension. Atenolol 12.5 mg twice a day 7. Hyperlipidemia 8. Seizure. Continue home medication of Keppra 500 mg twice a day 9. Hypothyroidism. Continue with levothyroxine 25 g daily DVT/GI prophylaxis: Lovenox and Protonix Left hip pain following fall. X-rays ordered. Discharge plan: return to [facility] under the care of Dr. Delaney. The above impression and plan of care have been discussed and directed by signing physician. Louisa Edmond nurse practitioner acting as scribe for signing physician.
[2018-06-16 12:07] VITALS: BMI 21.4
[2018-06-16] MEDS: ALPRAZolam 0.25 MG TAB PO SCH ×2 (13:22→22:18)
[2018-06-16] MEDS: FOLIC ACID 1 MG TAB PO SCH (13:22)
[2018-06-16] MEDS: CLOPIDOGREL 75 MG TAB PO SCH (16:49)
--- NOTE | 2018-06-16 20:09 | XR ---
EXAMINATION TYPE: XR Hip Complete LT DATE OF EXAM: 06/16/2018 CLINICAL HISTORY: Left hip pain, trauma per order. TECHNIQUE: AP and frogleg views of the left hip are obtained. COMPARISON: Left femur x-ray August 29, 2017. FINDINGS: Exam noted suboptimal due to patient pain and inability to move hip. Basically only single frontal projection is acquired. In addition [place] osseous structures are demineralized which is note d lower radiographic sensitivity. There is no definitive new acute fracture/dislocation evident in th e left hip. Metallic hardware from left hip arthroplasty is stable in position. Catheter over the pub ic symphysis likely reflects Arceo catheter. Tubular density left pelvis is felt to reflect new vascu lar stent graft in left-sided iliac artery, correlate clinically. There is surgical and degenerative change in visualized portion of lumbar spine IMPRESSION: There is no acute fracture or dislocation in the left hip.
[2018-06-16] MEDS: MIRTAZAPINE 15 MG TAB PO SCH (22:18)
[2018-06-16] MEDS: MELATONIN 5 MG TABLET PO SCH (22:19)
[2018-06-16] MEDS: SODIUM CHLORIDE 0.65% NASAL SPRAY 44 ML BTL NASAL SCH (22:22)
[2018-06-16] MEDS: traZODone HCL 100 MG TAB PO SCH (22:29)
[2018-06-17] MEDS: SYMBICORT 80-4.5 MCG INHALER INHALATION SCH ×4 (03:58→21:49)
[2018-06-17] MEDS: oxyCODONE-APAP 5-325MG 1 EACH TAB PO SCH ×3 (05:48→22:10)
[2018-06-17] MEDS: LEVOTHYROXINE 25 MCG TAB PO SCH (05:48)
[2018-06-17 08:22] LABS: Anisocytosis Slight; HCT 32.5 % (34.0-46.0); HGB 10.3 gm/dL (11.4-16.0); Hypochromasia Slight; MCH 29.7 pg (25.0-35.0); MCHC 31.5 g/dL (31.0-37.0); MCV 94.2 fL (80.0-100.0); Mean Platelet Volume 6.9; Platelet Count 320 k/uL (150-450); RBC 3.46 m/uL (3.80-5.40); WBC 4.5 k/uL (3.8-10.6)
[2018-06-17 08:25] LABS: Calcium 9.8 mg/dL (8.4-10.2)
[2018-06-17] MEDS: FLUTICASONE 50MCG/SPRAY NASAL 16GM EA NOSTRIL SCH (09:21)
[2018-06-17] MEDS: PANTOPRAZOLE 40 MG TABLET PO SCH (09:21)
[2018-06-17] MEDS: ENOXAPARIN 40 MG/0.4 ML SYRINGE SQ SCH (09:21)
[2018-06-17] MEDS: levETIRAcetam 500 MG TAB PO SCH ×2 (09:22→22:12)
[2018-06-17] MEDS: busPIRone HCl 5 MG TAB PO SCH ×2 (09:22→22:11)
[2018-06-17] MEDS: BACLOFEN 10 MG TAB PO SCH ×3 (09:22→22:11)
[2018-06-17] MEDS: ATENOLOL 12.5 MG TAB PO SCH ×2 (09:23→22:11)
[2018-06-17] MEDS ORDERED: VANCOMYCIN IV PER PHARMACY 1 EACH MISC MISCELLANE PRN (09:26)
[2018-06-17] MEDS ORDERED: VANCOMYCIN 1,250 MG in SODIUM CHLORIDE 0.9% 250 ML IVPB ONE (10:30)
[2018-06-17] MEDS: ALPRAZolam 0.25 MG TAB PO SCH ×2 (14:08→22:11)
[2018-06-17] MEDS: FOLIC ACID 1 MG TAB PO SCH (14:08)
--- NOTE | 2018-06-17 14:11 | P.CN ---
Psychiatric Consult - . Consult date: 06/17/18 Consult:: Psych? 06/17/18 13:34 Assessment and Plan Assessment: Reconsult for psychiatry This Is a 73-year-old female history of multiple medical problems who is back today for evaluation for psychiatric evaluation. The patient having nightmares not sleeping very anxious she relates it to multiple factors including a wound that won't resolve on her coccyx also she relates to the fact that she and her used to live with a lady who she feels feet are very badly. She was seen here yesterday and diagnosed with a UTI. She is back today for reevaluation. She is uncooperative at times with staff members she initially seemed to have somewhat of a flight of ideas. She reports of fevers chills or sweats she complains of her coccyx wound as well as a forearm wound on her right wrist/dorsal forearm that she states it happened yesterday when she was at [facility] which she states was caused by paramedics. - Related Data Home Medications Medication Instructions Recorded Confirmed Baclofen [Lioresal] 10 mg PO TID@0900,1300,2100 02/22/16 06/14/18 Folic Acid 1 mg PO DAILY@1300 02/22/16 06/14/18 Lansoprazole 30 mg PO DAILY@0900 02/22/16 06/14/18 Levothyroxine Sodium [Synthroid] 25 mcg PO DAILY@0600 02/22/16 06/14/18 busPIRone HCL 15 mg PO BID@0900,2100 02/22/16 06/14/18 levETIRAcetam [Keppra] 500 mg PO BID@0900,2100 02/22/16 06/14/18 Albuterol Inhaler [Ventolin Hfa 2 puff INHALATION RT-Q6H PRN 12/07/17 06/14/18 Inhaler] Clopidogrel Bisulfate [Plavix] 75 mg PO DAILY@1700 04/23/18 06/14/18 ALPRAZolam [Xanax] 0.25 mg PO BID@1300,2100 05/14/18 06/14/18 Fluticasone/Vilanterol [Breo 1 puff INHALATION DAILY@0900 05/15/18 06/14/18 Ellipta 100-25 Mcg Inhaler] Metoprolol Tartrate [Lopressor] 12.5 mg PO BID@0900,2100 05/15/18 06/14/18 Mylanta 30 ml PO Q4H PRN 05/15/18 06/14/18 Nitroglycerin Sl Tabs [Nitrostat] 0.4 mg SL DIRECTED PRN 05/15/18 06/14/18 oxyCODONE HCL/ACETAMINOPHEN 1 tab PO TID@0600,1400,2200 05/15/18 06/14/18 [Endocet 5-325 mg] Acetaminophen Tab [Tylenol Tab] 650 mg PO Q4H PRN 06/13/18 06/14/18 Fluticasone Nasal [place] [Flonase 1 spray EA NOSTRIL DAILY@0900,209906/13/1807/01 Nasal [place]] Lactose-Reduced Food [Ensure Plus] 237 ml PO TID@0900,1300,209906/13/18 Loperamide [Imodium] 2 mg PO Q8H PRN 06/13/18 06/14/18 Potassium Chloride [Klor-Con 10] 10 meq PO BID@0900,209906/13/18 06/14/18 Sodium Chloride [Saline Nasal 1 spray EA NOSTRIL HS@209906/13/18 06/14/18 [place]] Melatonin 10 mg PO HS 06/14/18 06/14/18 Previous Rx's Medication Instructions Recorded Cephalexin [Keflex] 500 mg PO Q8HR #21 cap 06/13/18 Allergies Allergy/AdvReac Type Severity Reaction Status Date / Time amitriptyline Allergy Unknown Verified 06/14/18 18:18 aspirin Allergy Unknown Verified 06/14/18 18:18 ciprofloxacin [From Cipro] Allergy Unknown Verified 06/14/18 18:18 codeine Allergy Hallucinati Verified 06/14/18 18:18 [From Tylenol-Codeine #3] ons ezetimibe Allergy Unknown Verified 06/14/18 18:18 fluoxetine [From Prozac] Allergy Unknown Verified 06/14/18 18:18 ibuprofen [From Motrin] Allergy Unknown Verified 06/14/18 18:18 indomethacin [From Indocin] Allergy Unknown Verified 06/14/18 18:18 Iodinated Contrast- Oral and Allergy Unknown Verified 06/14/18 18:18 IV Dye niacin Allergy Unknown Verified 06/14/18 18:18 nitrofurantoin Allergy Unknown Verified 06/14/18 18:18 Penicillins Allergy Anaphylaxis Verified 06/14/18 18:18 pregabalin Allergy Unknown Verified 06/14/18 18:18 Viywnow-Qdt-Lwy Reductase Allergy Unknown Verified 06/14/18 18:18 Inhibitor Sulfa (Sulfonamide AdvReac Nausea & Verified 06/14/18 18:18 Antibiotics) Vomiting & Diarrhea Past Medical History Past Medical History: Coronary Artery Disease (CAD), Cancer, Heart Failure, COPD , CVA/TIA, Hyperlipidemia, Hypertension, Renal Disease, Rheumatoid Arthritis (RA ), Seizure Disorder, Skin Disorder, Thyroid Disorder, Vascular Disorder Additional Past Medical History / Comment(s): SACRAL WOUND STAGE 3 (WOUND [facility] ). Arceo catheter. DAMARI'S ESOPHAGUS. IBS. Colorectal/anal cancer 2012. FIBROMYALGIA. Peripheral vascular disease with previous stenting to the lower extremities. Chronic back pain. "Blood poisoning and bowel obtruction. "Rapid heart rate with SOB". Walker with wheels. History of Any Multi-Drug Resistant Organisms: VRE Date of last positivie culture/infection: 12/07/17 MDRO Source:: URINE VRE Past Surgical History: Appendectomy, Back Surgery, Bowel Resection, Hysterectomy , Joint Replacement, Orthopedic Surgery Additional Past Surgical History / Comment(s): [employer] knee replacement &ion hip replacement. Bone removed and yaquelin placed left leg. Surgery for bowel obstruction x 2. Ion cataracts Past Anesthesia/Blood Transfusion Reactions: No Reported Reaction Past Psychological History: Depression, Panic Disorder Smoking Status: Current every day smoker Past Alcohol Use History: None Reported Past Drug Use History: None Reported - Past Family History Mother History Unknown: Yes Family Medical History: CVA/TIA Father History Unknown: Yes Additional Family Medical History / Comment(s): father of blot clots 6months after cabg Daughter(s) Family Medical History: Cancer Additional Family Medical History / Comment(s): bone Mental status examination: The patient presents alert, pleasant, and cooperative. There calmly seated without any agitated behavior. She reports that [her] mood is good. Affect is congruent and euthymic. [She] deny having any suicidal or homicidal ideation intent or plan. [She] denies any auditory or visual hallucinations. There is no evidence of any delusional thought content. [Her] thought process is linear and goal-directed. Her her speech is fluent and nonpressured. [] memory and concentration is grossly intact for the purposes of this session. Psychiatric impression: Delirium stabilized; major depressive disorder stable Psychiatric Recommendations: She is not a harm to herself or others and is medically psychiatrically stable may return to [facility] on the [place]. (1) Delirium due to another medical condition Current Visit: Yes Status: Acute Priority: Low Code(s): F05 - DELIRIUM DUE TO KNOWN PHYSIOLOGICAL CONDITION SNOMED Code(s): 9816091 Time with Patient: Less than 30
--- NOTE | 2018-06-17 15:59 | P.PN ---
Subjective Progress Note Date: 06/17/18 This is a 73-year-old female one of Dr. Delaney's patient with a known history of colorectal cancer, recurrent UTIs, COPD, depression, chronic decub in the sacral area and hypothyroidism. Patient was recently seen in the emergency department yesterday for aggressive and combative behavior at [facility]. She was found have a urinary tract infection and was prescribed antibiotics and sent back to [facility]. [facility] apparently sent the patient back to the emergency department again for mood disturbances. She is admitted for urinary tract infection and for psychiatric evaluation. Vital signs are stable , blood pressure 133/84, she remains afebrile heart rate 106, 96% on room air. WBC 7.5, hemoglobin 11.9, sodium 140, BUN 25, creatinine 1.23. Urine positive for urinary tract infection, urine culture was sent. Patient evaluated today, reports she has not been sleeping. She does have a sitter at the bedside. Psychiatry consulted, medications were adjusted, trazodone 100 mg at bedtime and fluoxetine 20 mg daily added. Wound VAC ordered for the sacral decub, she follows up at the wound center with Dr. Montejo on regular basis. 06/16: Patient has been afebrile, pulse ranging between 66 and 98, blood pressure 89/48, pulse ox 93% on room air. Urine culture showing gram-negative bacilli and patient is on ceftriaxone. Arm wound culture is showing presumptive staph aureus. Patient is complaining of left hip pain after a fall at [facility]. X- rays apparently were done at the time of the fall which were negative. Patient continues to have pain and repeat x-ray will be obtained. Discharge plan will be to return to [facility]. Patient is followed by PT and OT. 06/17: The patient will be given 1 dose of IV vancomycin possibly cover for MRSA from right arm wound. Culture came back as MSSA and urine culture was Pseudomonas. Patient has multiple ALLERGIES to antibiotics and consult will be placed with Dr. Wisdom. Hip x-ray was negative for any acute findings. She states her ostomy is having semi-formed soft stools. Psychiatry has been asked to clear patient for discharge to the alf. We'll plan for discharge to [facility] tomorrow. Review of Systems Constitutional: Denies chills, Denies fatigue, Denies fever Ears, nose, mouth and throat: Denies headache, Denies nasal congestion, Denies nasal discharge, Denies sinus pain, Denies sinus pressure Cardiovascular: Denies dyspnea on exertion, Denies edema, Denies orthopnea, Denies palpitations, Denies shortness of breath, Denies syncope Respiratory: Denies congestion, Denies cough, Denies dyspnea, Denies wheezing Gastrointestinal: Denies constipation, Denies diarrhea, Denies dyspepsia, Denies nausea, Denies vomiting Genitourinary: Denies flank pain, Denies urgency, Denies urinary frequency Musculoskeletal: Denies myalgias, Denies neck pain, reports left hip pain Integumentary: Reports wound right arm, Denies pruritus, Denies rash Neurological: Denies confusion, Denies convulsions, Denies headaches, Denies paralysis, Denies paresthesias, Denies seizures, Denies syncope, Denies weakness Psychiatric: Reports anxiety, Reports anxiety attacks, Reports insomnia, Reports irritability, Reports mood swings, Reports sleep disturbances, Denies hallucinations, Denies suicidal ideation Endocrine: Denies fatigue, Denies palpitations Objective - Vital Signs Vital signs: Vital Signs Temp 98.1 F 06/17/18 00:45 Pulse 73 06/17/18 00:45 Resp 18 06/17/18 00:45 BP 102/56 06/17/18 00:45 Pulse Ox 94 L 06/17/18 00:45 Intake & Output 06/16/18 06/17/18 06/17/18 18:59 06:59 18:59 Intake Total 100 473 Output Total 700 650 Balance -700 -550 473 Weight 56.699 kg Intake: Oral 100 473 Output: Urine 700 650 Other: Voiding Method Indwelling Catheter Indwelling Catheter - Exam General appearance: no acute distress, patient resting in bed - EENT Eyes: EOMI, PERRLA ENT: hearing grossly normal - Neck Neck: no lymphadenopathy, normal ROM, no rigidity, no stridor, no thyromegaly - Respiratory Respiratory: bilateral: CTA, negative: diminished, dullness, rales, rhonchi, wheezing - Cardiovascular Rhythm: regular Heart sounds: normal: S1, S2 - Gastrointestinal General gastrointestinal: no distended, no hepatomegaly, normal bowel sounds, no organomegaly, soft, no tenderness - Genitourinary Arceo catheter in place - Integumentary Wound right arm occurred at [facility] Chronic sacral pressure ulcer with bone exposure - Neurologic Neurologic: CNII-XII intact - Musculoskeletal Musculoskeletal: generalized weakness, strength equal bilaterally, no right sided weakness, no left sided weakness - Psychiatric Psychiatric: A&O x's 3 - Labs CBC & Chem 7: 06/17/18 07:26 06/17/18 07:26 Labs: Abnormal Lab Results - Last 24 Hours (Table) 06/17/18 06/17/18 Range/Units 07:26 07:26 RBC 3.46 L (3.80-5.40) m/uL Hgb 10.3 L (11.4-16.0) gm/dL Hct 32.5 L (34.0-46.0) % RDW 16.0 H (11.5-15.5) % Chloride 117 H (98-107) mmol/L Creatinine 1.06 H (0.52-1.04) mg/dL Microbiology - Last 24 Hours (Table) 06/14/18 19:14 Gram Stain - Final Arm - Right Wound Culture - Final Staphylococcus aureus 06/14/18 19:18 Urine Culture - Preliminary Urine,Voided Gram Neg Bacilli Assessment and Plan Plan: 1. Pseudomonas catheter associated urinary tract infection. Patient is on ceftriaxone Q24 hours. Consult with Dr. Wisdom. 2. Recurrent depression, anxiety and panic attacks. Psychiatry appreciated. Continue BuSpar 15 mg twice a day, Remeron 7.5 mg at bedtime, trazodone 100 mg at bedtime. 3. Insomnia: Trazodone 100 mg at at bedtime 4. Chronic Sacral ulcer: Follows up in wound center [facility] a [facility], wound VAC ordered, will continue with wound care 5. Chronic pain syndrome. Continue with Percocet 6. Hypertension. Atenolol 12.5 mg twice a day 7. Hyperlipidemia 8. Seizure. Continue home medication of Keppra 500 mg twice a day 9. Hypothyroidism. Continue with levothyroxine 25 g daily DVT/GI prophylaxis: Lovenox and Protonix Discharge plan: return to [facility] under the care of Dr. Delaney on Saturday. The above impression and plan of care have been discussed and directed by signing physician. Louisa Edmond nurse practitioner acting as scribe for signing physician.
[2018-06-17] MEDS: ACETAMINOPHEN TAB 325 MG TAB PO PRN (17:09)
[2018-06-17] MEDS: CLOPIDOGREL 75 MG TAB PO SCH (17:10)
[2018-06-17] MEDS: MELATONIN 5 MG TABLET PO SCH (22:11)
[2018-06-17] MEDS: traZODone HCL 100 MG TAB PO SCH (22:12)
[2018-06-17] MEDS: MIRTAZAPINE 15 MG TAB PO SCH (22:12)
[2018-06-17] MEDS: CEFEPIME 2 GM in SODIUM CHLORIDE 0.9% 50 ML IVPB SCH (22:13)
[2018-06-17] MEDS: SODIUM CHLORIDE 0.65% NASAL SPRAY 44 ML BTL NASAL SCH (22:21)
--- NOTE | 2018-06-18 00:25 | PN ---
PROGRESS NOTE DATE OF SERVICE: 06/17/2018. REASON FOR CONSULTATION: Positive urine culture. HISTORY OF PRESENT ILLNESS: The patient is a 73 -year-old female with past medical history significant for chronic nonhealing wound to the sacral area for which the patient currently being treated with wound VAC, has not been cleared for . The patient is on the wound VAC as the patient not sure about it. The patient to follow up at [facility]. The patient also has chronic indwelling Arceo catheter for urinary retention and she did not sure when the last time Arceo catheter has been changed. The patient has been brought into the ER at [facility] on 06/14/2018 for evaluation of psychiatric condition. The patient has nightmares, not sleeping, . The patient also apparently was recently diagnosed with UTI in the outpatient setting and has been treated with antibiotics without any improvement. On arrival to the ER, the patient has been afebrile. The patient did have a normal white count. The patient's urine was positive. However, this has been obtained from Arceo catheter, which showed large leukocyte esterases, 60 WBCs with urine culture now showing Pseudomonas aeruginosa that is sensitive pathogen. The patient now also have cultures obtained from the right arm, which is showing MSSA. However, we were not able to find any wound on her right arm and it is not very clear if this culture was obtained from the sacral wound as the patient is not able to give us that history. Patient at this time is awake. She knows she is in the hospital. The patient denies any headache or chest pain. No cough. No abdominal pain. Denies any diarrhea or any worsening pain to the sacral wound. REVIEW OF SYSTEMS: Positive points have been mentioned in HPI. The rest of systems have been negative. PAST MEDICAL HISTORY: Coronary artery disease, heart failure, COPD, CVA, TIA, hypertension, hyperlipidemia, rheumatoid arthritis, seizure disorder, hypothyroidism, stage III sacral wound. Cortes esophagus. Previous history of VRE urinary tract infection. PAST SURGICAL HISTORY: Appendectomy, back surgery, bowel resection, hysterectomy, right knee replacement, bilateral hip replacement. SOCIAL HISTORY: Current every day smoker. No drinking or drug use. FAMILY HISTORY: Mother with history of CVA/TIA. Father from blood clot after CABG. Daughter with history of colon cancer. ALLERGIES: MULTIPLE MEDICATIONS INCLUDING CIPROFLOXACIN, CODEINE, IBUPROFEN. MEDICATIONS: The patient is currently on Tylenol, Ventolin, Xanax, Tenormin, baclofen, Symbicort, Buspar, Rocephin, vancomycin, Lovenox, Keppra. Synthroid, melatonin, Premarin, Protonix and Desyrel. EXAMINATION: Blood pressure is 121/71 with a pulse of 74. Temperature is 97.2. She is 95% on room air. General description is an elderly female, lying in bed in no distress. No tachypnea or accessory muscles of respiration use. HEENT: Shows pallor. No scleral icterus. Oral mucosa membranes are dry. No pharyngeal erythema or thrush. Neck trachea central. No thyromegaly. Lungs unlabored breathing. Clear to auscultation anteriorly. No wheeze or crackles. Heart S1-S2. Regular rate and rhythm. ABDOMEN: Soft, no tenderness. No guarding or rigidity. Extremities: No edema of the feet. Sacral wound currently with wound VAC applied and no significant erythema was noted. EXTREMITIES: No edema of the feet. Skin examination: Some bruises but no rashes or mass palpable. Neurological: Patient is awake, alert, and oriented times three. Mood and affect normal. LABS: Hemoglobin is 10.2, white count 4.5, BUN of 16, creatinine 1.06. Electrolytes has been normal. Liver enzymes are normal. Urine was positive for oxycodone and benzos. UA was positive urine culture with Pseudomonas Aeruginosa. The wound culture with MSSA. DIAGNOSTIC IMPRESSION AND PLAN: 1. Patient admitted to the hospital with mental status changes, in this patient who does have a positive UA with concern for possible catheter associated urinary tract infection. Urine did show Pseudomonas sensitive to Cipro. However, the patient is ALLERGIC TO CIPROFLOXACIN. 2. The patient did have positive wound culture. Currently it is not very clear where this culture obtained from as the patient has no wound on her right arm, suspicion for possible culture taken from the sacral wound. The wound could not be examined today because of the wound VAC will be evaluated tomorrow to see any significance of these cultures and need for treatment. PLAN: 1. We will discontinue the Rocephin and vancomycin. 2. Will start patient cefepime 2 g q.12 to cover for both Pseudomonas as well as the MSSA. 3. Change of Arceo catheter. Obtain urine culture from new Arceo. 4. We will follow up on clinical condition and culture to further adjust medication if needed. Thank you for this consultation. Will follow this patient along with you. RIAZ / ORLINN: [id number] /
[2018-06-18] MEDS: FLUTICASONE 50MCG/SPRAY NASAL 16GM EA NOSTRIL SCH ×2 (01:18→09:05)
[2018-06-18] MEDS ORDERED: VANCOMYCIN 1,000 MG in SODIUM CHLORIDE 0.9% 250 ML IVPB SCH (04:00)
[2018-06-18] MEDS: ACETAMINOPHEN TAB 325 MG TAB PO PRN (04:13)
[2018-06-18] MEDS: LEVOTHYROXINE 25 MCG TAB PO SCH (05:49)
[2018-06-18] MEDS: oxyCODONE-APAP 5-325MG 1 EACH TAB PO SCH ×2 (05:49→13:00)
[2018-06-18 08:25] VITALS: BP 121/64; PULSE 68; RESP 16; TEMP 97.9
[2018-06-18] MEDS: ENOXAPARIN 40 MG/0.4 ML SYRINGE SQ SCH (09:05)
[2018-06-18] MEDS: BACLOFEN 10 MG TAB PO SCH ×2 (09:05→13:00)
[2018-06-18] MEDS: levETIRAcetam 500 MG TAB PO SCH (09:05)
[2018-06-18] MEDS: busPIRone HCl 5 MG TAB PO SCH (09:05)
[2018-06-18] MEDS: CEFEPIME 2 GM in SODIUM CHLORIDE 0.9% 50 ML IVPB SCH (09:05)
[2018-06-18] MEDS: ATENOLOL 12.5 MG TAB PO SCH (09:05)
[2018-06-18] MEDS: PANTOPRAZOLE 40 MG TABLET PO SCH (09:09)
[2018-06-18] MEDS: FOLIC ACID 1 MG TAB PO SCH (13:00)
[2018-06-18] MEDS: ALPRAZolam 0.25 MG TAB PO SCH (13:00)
--- NOTE | 2018-06-18 14:06 | P.DS ---
Providers Date of admission: 06/17/18 09:27 Expected date of discharge: 06/18/18 Attending physician: Carolyn Delaney Consults: 06/14/18 23:00 Consult Physician Routine Consulting Provider: Nicolás Reyna Consult Reason/Comments: psych Do you want consulting provider notified?: Yes 06/17/18 14:59 Consult Physician Routine Consulting Provider: Joanne Wisdom Consult Reason/Comments: Pseudomonas and MSSA, abx allergies Do you want consulting provider notified?: Yes Primary care physician: Carolyn Delaney [facility] Course: This is a 73-year-old female one of Dr. Delaney's patient with a known history of colorectal cancer, recurrent UTIs, COPD, depression, chronic decub in the sacral area and hypothyroidism. Patient was recently seen in the emergency department yesterday for aggressive and combative behavior at [facility]. She was found have a urinary tract infection and was prescribed antibiotics and sent back to [facility]. [facility] apparently sent the patient back to the emergency department again for mood disturbances. She is admitted for urinary tract infection and for psychiatric evaluation. Vital signs are stable , blood pressure 133/84, she remains afebrile heart rate 106, 96% on room air. WBC 7.5, hemoglobin 11.9, sodium 140, BUN 25, creatinine 1.23. Urine positive for urinary tract infection, urine culture was sent. Patient evaluated today, reports she has not been sleeping. She does have a sitter at the bedside. Psychiatry consulted, medications were adjusted, trazodone 100 mg at bedtime and fluoxetine 20 mg daily added. Wound VAC ordered for the sacral decub, she follows up at the wound center with Dr. Montejo on regular basis. 06/16: Patient has been afebrile, pulse ranging between 66 and 98, blood pressure 89/48, pulse ox 93% on room air. Urine culture showing gram-negative bacilli and patient is on ceftriaxone. Arm wound culture is showing presumptive staph aureus. Patient is complaining of left hip pain after a fall at [facility]. X- rays apparently were done at the time of the fall which were negative. Patient continues to have pain and repeat x-ray will be obtained. Discharge plan will be to return to [facility]. Patient is followed by PT and OT. 06/17: The patient will be given 1 dose of IV vancomycin possibly cover for MRSA from right arm wound. Culture came back as MSSA and urine culture was Pseudomonas. Patient has multiple ALLERGIES to antibiotics and consult will be placed with Dr. Wisdom. Hip x-ray was negative for any acute findings. She states her ostomy is having semi-formed soft stools. Psychiatry has been asked to clear patient for discharge to the intermediate. We'll plan for discharge to [facility] tomorrow. 06/18: Patient has been afebrile, blood pressure 121/64, heart rate running in the 60s and 70s. Pulse ox 93% on room air. Patient has been followed by Dr. Wisdom and has placed the patient on cefepime. Plan is for her to continue 3 doses at the intermediate via peripheral line. Arceo catheter was changed yesterday. Patient denies any diarrhea. Patient will be discharged to [facility] once all results are completed. Discharge diagnoses: 1. Pseudomonas catheter associated urinary tract infection. 2. Recurrent depression, anxiety and panic attacks. 3. Insomnia 4. Chronic Sacral ulcer: [facility], wound VAC to continue 5. Chronic pain syndrome. 6. Hypertension. 7. Hyperlipidemia 8. Seizure. 9. Hypothyroidism. Discharge plan: return to [facility] under the care of Dr. Delaney The above impression and plan of care have been discussed and directed by signing physician. Louisa Edmond nurse practitioner acting as scribe for signing physician. Patient Condition at Discharge: Good Plan - Discharge Summary Discharge Rx Participant: No New Discharge Prescriptions: New ALPRAZolam [Xanax] 0.25 mg PO BID@1300,2100 #6 tab Atenolol [Tenormin] 12.5 mg PO BID dose Cefepime HCl [Maxipime] 2 gm IV Q12H #6 vial Mirtazapine [Remeron] 7.5 mg PO HS tab traZODone HCL [Desyrel] 100 mg PO HS tab Continue busPIRone HCL 15 mg PO BID@0900,2100 levETIRAcetam [Keppra] 500 mg PO BID@0900,2100 Levothyroxine Sodium [Synthroid] 25 mcg PO DAILY@0600 Folic Acid 1 mg PO DAILY@1300 Baclofen [Lioresal] 10 mg PO TID@0900,1300,2100 Lansoprazole 30 mg PO DAILY@0900 Albuterol Inhaler [Ventolin Hfa Inhaler] 2 puff INHALATION RT-Q6H PRN PRN Reason: Shortness Of Breath Clopidogrel Bisulfate [Plavix] 75 mg PO DAILY@1700 ALPRAZolam [Xanax] 0.25 mg PO BID@1300,2100 Fluticasone/Vilanterol [Breo Ellipta 100-25 Mcg Inhaler] 1 puff INHALATION DAILY@0900 Mylanta 30 ml PO Q4H PRN PRN Reason: Indigestion Nitroglycerin Sl Tabs [Nitrostat] 0.4 mg SL DIRECTED PRN PRN Reason: Angina Acetaminophen Tab [Tylenol] 650 mg PO Q4H PRN PRN Reason: Pain Loperamide [Imodium] 2 mg PO Q8H PRN PRN Reason: Loose Stool Lactose-Reduced Food [Ensure Plus] 237 ml PO TID@0900,1300,2100 Sodium Chloride [Saline Nasal [place]] 1 spray EA NOSTRIL HS@2099 Potassium Chloride [Klor-Con 10] 10 meq PO BID@0900,2100 Fluticasone Nasal [place] [Flonase Nasal [place]] 1 spray EA NOSTRIL DAILY@0900, 2100 Melatonin 10 mg PO HS oxyCODONE HCL/ACETAMINOPHEN [Endocet 5-325 mg] 1 tab PO TID@0600,1400,2200 # 9 tablet Discontinued Metoprolol Tartrate [Lopressor] 12.5 mg PO BID@0900,2100 Cephalexin [Keflex] 500 mg PO Q8HR #21 cap Discharge Medication List Baclofen [Lioresal] 10 mg PO TID@0900,1300,2100 02/22/16 [History] Folic Acid 1 mg PO DAILY@1300 02/22/16 [History] Lansoprazole 30 mg PO DAILY@0900 02/22/16 [History] Levothyroxine Sodium [Synthroid] 25 mcg PO DAILY@0600 02/22/16 [History] busPIRone HCL 15 mg PO BID@0900,2100 02/22/16 [History] levETIRAcetam [Keppra] 500 mg PO BID@0900,2100 02/22/16 [History] Albuterol Inhaler [Ventolin Hfa Inhaler] 2 puff INHALATION RT-Q6H PRN 12/07/17 [ History] Clopidogrel Bisulfate [Plavix] 75 mg PO DAILY@1700 04/23/18 [History] ALPRAZolam [Xanax] 0.25 mg PO BID@1300,2100 05/14/18 [History] Fluticasone/Vilanterol [Breo Ellipta 100-25 Mcg Inhaler] 1 puff INHALATION DAILY @0900 05/15/18 [History] Mylanta 30 ml PO Q4H PRN 05/15/18 [History] Nitroglycerin Sl Tabs [Nitrostat] 0.4 mg SL DIRECTED PRN 05/15/18 [History] Acetaminophen Tab [Tylenol] 650 mg PO Q4H PRN 06/13/18 [History] Fluticasone Nasal [place] [Flonase Nasal [place]] 1 spray EA NOSTRIL DAILY@0900, 209906/13/18 [History] Lactose-Reduced Food [Ensure Plus] 237 ml PO TID@0900,1300,209906/13/18 [ History] Loperamide [Imodium] 2 mg PO Q8H PRN 06/13/18 [History] Potassium Chloride [Klor-Con 10] 10 meq PO BID@0900,209906/13/18 [History] Sodium Chloride [Saline Nasal [place]] 1 spray EA NOSTRIL HS@209906/13/18 [ History] Melatonin 10 mg PO HS 06/14/18 [History] ALPRAZolam [Xanax] 0.25 mg PO BID@1300,2100 #6 tab 06/18/18 [Rx] Atenolol [Tenormin] 12.5 mg PO BID dose 06/18/18 [Rx] Cefepime HCl [Maxipime] 2 gm IV Q12H #6 vial 06/18/18 [Rx] Mirtazapine [Remeron] 7.5 mg PO HS tab 06/18/18 [Rx] oxyCODONE HCL/ACETAMINOPHEN [Endocet 5-325 mg] 1 tab PO TID@0600,1400,2200 #9 tablet 06/18/18 [Rx] traZODone HCL [Desyrel] 100 mg PO HS tab 06/18/18 [Rx] Follow up Appointment(s)/Referral(s): Carolyn Delaney MD [Primary Care Provider] - 1 Week (at [facility])
--- NOTE | 2018-06-18 16:44 | PN ---
PROGRESS NOTE DATE OF SERVICE: 06/18/2018. REASON FOR FOLLOW UP: 1. Pseudomonas catheter infection. 2. Stage III sacral wound. INTERVAL HISTORY: The patient is currently afebrile. She was seen on rounds earlier this afternoon. No chest pain or any cough. No abdominal pain or any diarrhea. PHYSICAL EXAMINATION: Blood pressure 121/54 with a pulse of 68. Temperature 97.9. She is 93% on room air. General description is an elderly female, lying in bed in no distress. Respiratory system: Unlabored breathing. Clear to auscultation anteriorly. Heart S1, S2. Regular rate and rhythm. Abdomen soft, no tenderness. Examination of sacral wound, the wound base looks clean with no evidence of any cellulitis. LABS: Hemoglobin 10.1, white count 4.5 with a BUN of 16, creatinine 1.06. DIAGNOSTIC IMPRESSION AND PLAN: 1. Patient with Pseudomonas aeruginosa catheter associated urinary tract infection. The patient does have ALLERGY TO CIPROFLOXACIN with available. She will continue on cefepime 2 g q.12 hours for another 3 days to finish a course of therapy. Plan of care was discussed with the admitting team who is working on the discharge. 2. Patient with stage III sacral pressure ulcer. Local care with a wound VAC that can be resumed at the care home. MMODL / IJN: [id number] /
== END 2018-06-18 15:57 | DRG 698 ==
LOC: EC 17:02 → EEVIPCON 23:03 → 4SSUR 23:03 → INTOOBSV 23:03 → OBSVTOIN 06-17 09:27
PROVIDERS: ADMIT Internal Medicine; ATTEND Internal Medicine
DX: T83.511A Infection and inflammatory reaction due to indwelling urethral catheter, initial encounter (principal); L89.153 Pressure ulcer of sacral region, stage 3; F33.9 Major depressive disorder, recurrent, unspecified; Y84.6 Urinary catheterization as the cause of abnormal reaction of the patient, or of later complication, without mention of misadventure at the time of the procedure; E03.9 Hypothyroidism, unspecified; E78.5 Hyperlipidemia, unspecified; F17.200 Nicotine dependence, unspecified, uncomplicated; F41.0 Panic disorder [episodic paroxysmal anxiety]; G40.909 Epilepsy, unspecified, not intractable, without status epilepticus; G47.00 Insomnia, unspecified; G89.4 Chronic pain syndrome; I11.0 Hypertensive heart disease with heart failure; I25.10 Atherosclerotic heart disease of native coronary artery without angina pectoris; I50.9 Heart failure, unspecified; I73.9 Peripheral vascular disease, unspecified; J44.9 Chronic obstructive pulmonary disease, unspecified; K22.70 Barrett's esophagus without dysplasia; K58.9 Irritable bowel syndrome, unspecified; M06.9 Rheumatoid arthritis, unspecified; M79.7 Fibromyalgia; N39.0 Urinary tract infection, site not specified; W19.XXXA Unspecified fall, initial encounter; Z79.02 Long term (current) use of antithrombotics/antiplatelets; Z79.890 Hormone replacement therapy; Z79.899 Other long term (current) drug therapy; Z85.048 Personal history of other malignant neoplasm of rectum, rectosigmoid junction, and anus; Z86.73 Personal history of transient ischemic attack (TIA), and cerebral infarction without residual deficits; Z87.440 Personal history of urinary (tract) infections; Z88.1 Allergy status to other antibiotic agents; Z90.710 Acquired absence of both cervix and uterus; Z96.643 Presence of artificial hip joint, bilateral; Z96.651 Presence of right artificial knee joint; Z79.51 Long term (current) use of inhaled steroids; Z88.5 Allergy status to narcotic agent; Z88.0 Allergy status to penicillin; Z88.8 Allergy status to other drugs, medicaments and biological substances; Z88.6 Allergy status to analgesic agent; Z91.041 Radiographic dye allergy status; Z88.2 Allergy status to sulfonamides; Z98.42 Cataract extraction status, left eye; Z98.41 Cataract extraction status, right eye; B95.8 Unspecified staphylococcus as the cause of diseases classified elsewhere
CPT/HCPCS: 36415; 70450; 71045; 73502; 80048; 80053; 80306; 80320; 81001; 82140; 82150; 82550; 82553; 83605; 83690; 83735; 84443; 85025; 85027; 87070; 87075; 87077; 87086; 87186; 87205; 96365; 99285

== ENCOUNTER 2019-05-07 14:54 | Inpatient (IN) | payer MEDICARE, OTHER ==
--- NOTE | 2019-05-07 15:34 | ED ---
General Adult HPI - General Chief complaint: Neuro Symptoms/Deficit Stated complaint: Weakness Time Seen by Provider: 05/07/19 15:13 Source: patient, EMS, RN notes reviewed Mode of arrival: EMS Limitations: physical limitation - History of Present Illness Initial comments: Patient is a pleasant 73-year-old female presenting to the emergency Department with concerns regarding left sided paresthesias. Patient went to bed around midnight and was doing fine. Patient woke up at 2 AM and complains of paresthesias left face and left arm. Patient states left arm also feels somewhat weak. Symptoms have improved since onset. Symptoms still remained dheeraj ewhat low. No headache or confusion. No speech problems. Patient did have similar symptoms years ago associated with stroke. - Related Data Home Medications Medication Instructions Recorded Confirmed Baclofen [Lioresal] 10 mg PO TID@0900,1300,2100 02/22/16 08/12/18 Folic Acid 1 mg PO DAILY@1300 02/22/16 08/12/18 Lansoprazole 30 mg PO DAILY@0900 02/22/16 08/12/18 Levothyroxine Sodium [Synthroid] 25 mcg PO DAILY@0600 02/22/16 08/12/18 busPIRone HCL 15 mg PO BID@0900,2100 02/22/16 08/12/18 levETIRAcetam [Keppra] 500 mg PO BID@0900,2100 02/22/16 08/12/18 Albuterol Inhaler [Ventolin Hfa 2 puff INHALATION RT-Q6H PRN 12/07/17 08/12/18 Inhaler] Clopidogrel Bisulfate [Plavix] 75 mg PO DAILY@1700 04/23/18 08/12/18 ALPRAZolam [Xanax] 0.25 mg PO BID@1300,2100 05/14/18 08/12/18 Fluticasone/Vilanterol [Breo 1 puff INHALATION DAILY@0900 05/15/18 08/12/18 Ellipta 100-25 Mcg Inhaler] Mylanta 30 ml PO Q4H PRN 05/15/18 08/12/18 Nitroglycerin Sl Tabs [Nitrostat] 0.4 mg SL DIRECTED PRN 05/15/18 08/12/18 Acetaminophen Tab [Tylenol] 650 mg PO Q4H PRN 06/13/18 08/12/18 Fluticasone Nasal [place] [Flonase 1 spray EA NOSTRIL BID@0900,2100 06/13/18 08/13/18 Nasal [place]] Lactose-Reduced Food [Ensure Plus] 237 ml PO TID@0900,1300,2100 06/13/18 08/12/18 Loperamide [Imodium] 2 mg PO Q8H PRN 06/13/18 08/12/18 Potassium Chloride [Klor-Con 10] 10 meq PO BID@0900,2100 06/13/18 08/12/18 Sodium Chloride [Saline Nasal 1 spray EA NOSTRIL HS@209906/13/18 08/12/18 [place]] Melatonin 10 mg PO HS 06/14/18 08/12/18 FLUoxetine HCL [PROzac] 20 mg PO DAILY 07/08/18 08/12/18 Lidocaine 2% Gel [Xylocaine Jelly 1 applic TOPICAL DAILY PRN 07/29/18 08/13/18 2%] Tofacitinib Citrate [Xeljanz Xr] 11 mg PO DAILY 08/05/18 08/12/18 predniSONE 10 mg PO BID 08/05/18 08/12/18 Previous Rx's Medication Instructions Recorded Atenolol [Tenormin] 12.5 mg PO BID dose 06/18/18 Cefepime HCl [Maxipime] 2 gm IV Q12H #6 vial 06/18/18 Mirtazapine [Remeron] 7.5 mg PO HS tab 06/18/18 oxyCODONE HCL/ACETAMINOPHEN 1 tab PO TID@0600,1400,2200 #9 06/18/18 [Endocet 5-325 mg] tablet traZODone HCL [Desyrel] 100 mg PO HS tab 06/18/18 Allergies Allergy/AdvReac Type Severity Reaction Status Date / Time amitriptyline Allergy Unknown Verified 08/12/18 08:13 aspirin Allergy Unknown Verified 08/12/18 08:13 ciprofloxacin [From Cipro] Allergy Unknown Verified 08/12/18 08:13 codeine Allergy Hallucinati Verified 08/12/18 08:13 [From Tylenol-Codeine #3] ons ezetimibe Allergy Unknown Verified 08/12/18 08:13 fluoxetine [From Prozac] Allergy Unknown Verified 08/12/18 08:13 ibuprofen [From Motrin] Allergy Unknown Verified 08/12/18 08:13 indomethacin [From Indocin] Allergy Unknown Verified 08/12/18 08:13 Iodinated Contrast Media Allergy Unknown Verified 08/12/18 08:13 [Iodinated Contrast- Oral and IV Dye] niacin Allergy Unknown Verified 08/12/18 08:13 nitrofurantoin Allergy Unknown Verified 08/12/18 08:13 Penicillins Allergy Anaphylaxis Verified 08/12/18 08:13 pregabalin Allergy Unknown Verified 08/12/18 08:13 Mkptgvn-Aap-Eku Reductase Allergy Unknown Verified 08/12/18 08:13 Inhibitor Sulfa (Sulfonamide AdvReac Nausea & Verified 08/12/18 08:13 Antibiotics) Vomiting & Diarrhea Review of Systems ROS Statement: Those systems with pertinent positive or pertinent negative responses have been documented in the HPI. ROS Other: All systems not noted in ROS Statement are negative. Constitutional: Denies: fever Eyes: Denies: eye pain ENT: Denies: ear pain Respiratory: Denies: cough Cardiovascular: Denies: chest pain Endocrine: Denies: fatigue Gastrointestinal: Denies: abdominal pain Genitourinary: Denies: dysuria Musculoskeletal: Denies: back pain Skin: Denies: rash Neurological: Reports: weakness, paresthesias Past Medical History Past Medical History: Coronary Artery Disease (CAD), Cancer, Heart Failure, COPD, CVA/TIA, Hyperlipidemia, Hypertension, Renal Disease, Rheumatoid Arthritis (RA), Seizure Disorder, Skin Disorder, Thyroid Disorder, Vascular Disorder Additional Past Medical History / Comment(s): SACRAL WOUND STAGE 3 ([facility] Arceo catheter. DAMARI'S ESOPHAGUS. IBS. Colorectal/anal cancer 2011. FIBROMYALGIA. Peripheral vascular disease with previous stenting to the lower extremities. Chronic back pain. "Blood poisoning and bowel obtruction. "Rapid heart rate with SOB". Walker with wheels. 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 Bone removed and yaquelin placed left leg. Surgery for bowel obstruction x 2. Lyly cataracts Past Anesthesia/Blood Transfusion Reactions: No Reported Reaction Past Psychological History: Depression, Panic Disorder Smoking Status: Former smoker Past Alcohol Use History: None Reported Past Drug Use History: None Reported - Past Family History Mother History Unknown: Yes Family Medical History: CVA/TIA Father History Unknown: Yes Additional Family Medical History / Comment(s): father of blot clots 6months after cabg Daughter(s) Family Medical History: Cancer Additional Family Medical History / Comment(s): bone General Exam Limitations: physical limitation General appearance: alert, in no apparent distress Head exam: Present: normocephalic Eye exam: Present: normal appearance, PERRL, EOMI. Absent: nystagmus ENT exam: Present: normal oropharynx Neck exam: Present: normal inspection Respiratory exam: Present: normal lung sounds bilaterally Cardiovascular Exam: Present: regular rate, normal rhythm GI/Abdominal exam: Present: soft. Absent: tenderness Extremities exam: Present: normal inspection Neurological exam: Present: alert, oriented X3, CN II-XII intact (Except for decreased sensation left side of face) Expanded Neurological exam: Present: protecting the airway Patient oriented to: Present: person, place, time Speech: Present: fluid speech Cranial nerves: EOM's Intact: Normal, Facial Sensation: Abnormal Left (Patient states decreased on the left) Sensory exam: Upper Extremity Light Touch: Abnormal Left (Patient states decreased sensation), Lower Extremity Light Touch: Normal Motor strength exam: RUE: 5, LUE: 4, RLE: 5, LLE: 5 Eye Response: (4) open spontaneously Motor Response: (6) obeys commands Verbal Response: (5) oriented Psychiatric exam: Present: normal affect, normal mood Skin exam: Present: normal color Course Vital Signs 05/07/19 05/07/19 05/07/19 14:59 15:30 15:45 Temperature 98.1 F Pulse Rate 83 88 83 Respiratory 19 19 20 Rate Blood Pressure 118/93 113/93 124/96 O2 Sat by Pulse 93 L 93 L 94 L Oximetry 05/07/19 16:00 Temperature Pulse Rate 70 Respiratory 18 Rate Blood Pressure 151/76 O2 Sat by Pulse 94 L Oximetry - Reevaluation(s) Reevaluation #1: 05/07/19 15:32 Patient is not a TPA candidate secondary to onset greater than 4.5 hours. In addition patient has minimal symptoms that are improving. 05/07/19 15:47 Case was discussed in detail with neural interventional list Dr. Izaguirre who agrees patient is not a TPA candidate. He will call back if any intervention is needed EKG Findings - EKG Comments: EKG Findings:: Normal sinus rhythm 81. DE 162. QRS 68. QT 362. QTC 420. Normal axis. Normal QRS. No acute ST change. Medical Decision Making - Medical Decision Making Patient reevaluated and updated. Case was discussed in detail with Dr. Liriano, who will admit covering for Dr. Delaney. She does request Dr. Gamble with only and echo. CTA of chest Read done tomorrow secondary to patient just receiving contrast. - Lab Data Result diagrams: 05/07/19 15:31 05/07/19 15:31 Lab Results 05/07/19 05/07/19 05/07/19 Range/Units 15:31 15:31 15:31 WBC 8.6 (3.8-10.6) k/uL RBC 3.60 L (3.80-5.40) m/uL Hgb 10.6 L (11.4-16.0) gm/dL Hct 33.3 L (34.0-46.0) % MCV 92.4 (80.0-100.0) fL MCH 29.3 (25.0-35.0) pg MCHC 31.7 (31.0-37.0) g/dL RDW 16.4 H (11.5-15.5) % Plt Count 385 (150-450) k/uL Neutrophils % (Manual) 75 % Lymphocytes % (Manual) 15 % Monocytes % (Manual) 5 % Eosinophils % (Manual) 5 % Neutrophils # (Manual) 6.45 (1.3-7.7) k/uL Lymphocytes # (Manual) 1.29 (1.0-4.8) k/uL Monocytes # (Manual) 0.43 (0-1.0) k/uL Eosinophils # (Manual) 0.43 (0-0.7) k/uL Nucleated RBCs 0 (0-0) /100 WBC Manual Slide Review Performed Hypochromasia Slight Poikilocytosis (manual Present Anisocytosis Slight PT (9.0-12.0) sec INR (<1.2) APTT (22.0-30.0) sec Sodium 140 (137-145) mmol/L Potassium 4.2 (3.5-5.1) mmol/L Chloride 109 H (98-107) mmol/L Carbon Dioxide 25 (22-30) mmol/L Anion Gap 6 mmol/L BUN 30 H (7-17) mg/dL Creatinine 1.18 H (0.52-1.04) mg/dL Est GFR (CKD-EPI)AfAm 54 (>60 ml/min/1.73 sqM) Est GFR (CKD-EPI)NonAf 47 (>60 ml/min/1.73 sqM) Glucose 106 H (74-99) mg/dL Calcium 9.3 (8.4-10.2) mg/dL Total Bilirubin 0.4 (0.2-1.3) mg/dL AST 27 (14-36) U/L ALT 7 (4-34) U/L Alkaline Phosphatase 102 (38-126) U/L Total Creatine Kinase 61 (30-135) U/L CK-MB (CK-2) 0.6 (0.0-2.4) ng/mL CK-MB (CK-2) Rel Index 1.0 Troponin I <0.012 (0.000-0.034) ng/mL Total Protein 6.8 (6.3-8.2) g/dL Albumin 3.8 (3.5-5.0) g/dL 05/07/19 Range/Units 15:31 WBC (3.8-10.6) k/uL RBC (3.80-5.40) m/uL Hgb (11.4-16.0) gm/dL Hct (34.0-46.0) % MCV (80.0-100.0) fL MCH (25.0-35.0) pg MCHC (31.0-37.0) g/dL RDW (11.5-15.5) % Plt Count (150-450) k/uL Neutrophils % (Manual) % Lymphocytes % (Manual) % Monocytes % (Manual) % Eosinophils % (Manual) % Neutrophils # (Manual) (1.3-7.7) k/uL Lymphocytes # (Manual) (1.0-4.8) k/uL Monocytes # (Manual) (0-1.0) k/uL Eosinophils # (Manual) (0-0.7) k/uL Nucleated RBCs (0-0) /100 WBC Manual Slide Review Hypochromasia Poikilocytosis (manual Anisocytosis PT 9.5 (9.0-12.0) sec INR 0.9 (<1.2) APTT 22.9 (22.0-30.0) sec Sodium (137-145) mmol/L Potassium (3.5-5.1) mmol/L Chloride (98-107) mmol/L Carbon Dioxide (22-30) mmol/L Anion Gap mmol/L BUN (7-17) mg/dL Creatinine (0.52-1.04) mg/dL Est GFR (CKD-EPI)AfAm (>60 ml/min/1.73 sqM) Est GFR (CKD-EPI)NonAf (>60 ml/min/1.73 sqM) Glucose (74-99) mg/dL Calcium (8.4-10.2) mg/dL Total Bilirubin (0.2-1.3) mg/dL AST (14-36) U/L ALT (4-34) U/L Alkaline Phosphatase (38-126) U/L Total Creatine Kinase (30-135) U/L CK-MB (CK-2) (0.0-2.4) ng/mL CK-MB (CK-2) Rel Index Troponin I (0.000-0.034) ng/mL Total Protein (6.3-8.2) g/dL Albumin (3.5-5.0) g/dL - Radiology Data Radiology results: report reviewed (Computed tomography scan of the brain shows stable atrophy. No acute intercranial abnormality. CTA shows some incidental pulmonary emboli as discussed with radiology. This includes central left main pulmonary emboli.), image reviewed (Chest x-ray shows some interstitial densities that could reflect bronchitis or asthma.) Critical Care Time Critical Care Time: Yes Total Critical Care Time: 33 Disposition Clinical Impression: Cerebrovascular accident (CVA), Pulmonary embolus Disposition: ADMITTED IP TO THIS HOSP Is patient prescribed a controlled substance at d/c from ED?: No Referrals: Carolyn Delaney MD [Primary Care Provider] - 1-2 days Decision Time: 17:09
[2019-05-07] MEDS ORDERED: diphenhydrAMINE 50 MG/ML 1 ML VIAL IVP STA (15:39)
[2019-05-07] MEDS ORDERED: methylPREDNISolone SOD SUCCI 125 MG/2 ML VIAL IV STA (15:40)
[2019-05-07] MEDS ORDERED: FAMOTIDINE 20 MG/2 ML VIAL IV STA (15:40)
[2019-05-07 15:43] LABS: Anisocytosis Slight; HCT 33.3 % (34.0-46.0); HGB 10.6 gm/dL (11.4-16.0); Hypochromasia Slight; MCH 29.3 pg (25.0-35.0); MCHC 31.7 g/dL (31.0-37.0); MCV 92.4 fL (80.0-100.0); Mean Platelet Volume 8.3; Platelet Count 385 k/uL (150-450); RDW 16.4 % (11.5-15.5); WBC 8.6 k/uL (3.8-10.6)
[2019-05-07 15:47] LABS: INR 0.9 (<1.2); Partial Thromboplastin Time 22.9 sec (22.0-30.0); Prothrombin Time 9.5 sec (9.0-12.0)
[2019-05-07 15:49] LABS: Albumin 3.8 g/dL (3.5-5.0); Calcium 9.3 mg/dL (8.4-10.2); Potassium 4.2 mmol/L (3.5-5.1); Total Bilirubin 0.4 mg/dL (0.2-1.3); Total Protein 6.8 g/dL (6.3-8.2)
--- NOTE | 2019-05-07 15:51 | CT ---
EXAMINATION TYPE: CT brain wo con for TPA DATE OF EXAM: 05/07/2019 COMPARISON: 06/14/2018 HISTORY: 73-year-old female Left arm weakness TECHNIQUE: Examination was done in axial plane without intravenous contrast. Coronal and sagittal r econstructions performed. CT DLP: 1101.8 mGycm Automated exposure control for dose reduction was used. FINDINGS: There is no evidence of acute intracranial hemorrhage, acute ischemic changes, mass, mass-effect, or extra-axial fluid collection. There is no effacement of cerebral sulci or basal subarachnoid cister ns. There is no hydrocephalus. There is no midline shift. Bishop-white matter distinction is preserv ed. Mild generalized supratentorial volume loss. Mild patchy white matter hypodensities compatible with c hanges of chronic small vessel ischemic disease. Paranasal sinuses and mastoid air cells well pneumatized. Orbits and globes are intact. IMPRESSION: Stable mild generalized atrophy and changes of chronic small vessel ischemic disease. No acute intrac ranial abnormality seen.
[2019-05-07 15:53] LABS: Creatine Kinase 61 U/L (30-135)
[2019-05-07 16:05] LABS: Creatine Kinase MB 0.6 ng/mL (0.0-2.4); Troponin I <0.012 ng/mL (0.000-0.034)
[2019-05-07 16:11] LABS: Eosinophils # (M) 0.43 k/uL (0-0.7); Lymphocytes # (M) 1.29 k/uL (1.0-4.8); Monocytes # (M) 0.43 k/uL (0-1.0); Neutrophils # (M) 6.45 k/uL (1.3-7.7); Neutrophils % (M) 75 %; Nucleated Red Blood Cells 0 /100 WBC (0-0); Poikilocytosis (M) Present; Total Cells Counted 100
--- NOTE | 2019-05-07 16:12 | XR ---
EXAMINATION TYPE: XR chest 2V DATE OF EXAM: 05/07/2019 COMPARISON: 06/14/2018 HISTORY: 73-year-old female with confusion, altered mental status TECHNIQUE: AP and lateral views FINDINGS: Heart normal size. Aorta within normal limits. Mild streaky perihilar peribronchial opacities. No fra nk consolidation. Large appearance to the main right pulmonary artery on the lateral view. No pleural effusion. IMPRESSION: Central interstitial densities could reflect bronchitis or asthma. Correlate for underlying pulmonary arterial hypertension given large right main pulmonary artery on the lateral view.
--- NOTE | 2019-05-07 16:22 | CT ---
EXAMINATION TYPE: CT angio head neck DATE OF EXAM: 05/07/2019 COMPARISON: Brain same day HISTORY: 73-year-old female Left arm weakness TECHNIQUE: Contiguous axial scanning of the head and neck performed with IV Contrast, patient injecte d with 65 mL of Isovue 370. Coronal/sagittal MIP reconstructions performed. 3-D reconstructions gener ated on a dedicated independent workstation. CT DLP: 498.9 mGycm Automated exposure control for dose reduction was used. FINDINGS: NECK: Partially visualized upper lobe and segmental branch pulmonary emboli on both sides. Additional embol us within left main pulmonary artery. Conventional vessel branching anatomy. The vertebral arteries appear codominant and patent throughout the course. The common carotid arteries have a partial retropharyngeal course. Right common and internal carotid arteries are patent. The left common and internal carotid arteries are patent. HEAD: Vertebral and basilar arteries are patent. Scattered mild atherosclerotic calcifications within the carotid siphons with both internal carotid a rteries remain patent. The remainder of the anterior and posterior circulations are patent. No aneurysmal change seen. IMPRESSION: NECK: 1. PARTIALLY VISUALIZED BILATERAL PULMONARY EMBOLI INVOLVING THE RIGHT AND LEFT UPPER LOBAR AND SEGME NTAL BRANCHES. ADDITIONAL CENTRAL EMBOLUS INVOLVING THE LEFT MAIN PULMONARY ARTERY. 2. PATENT VERTEBRAL AND CAROTID ARTERIES OF THE NECK. HEAD: 1. NO LARGE VESSEL INTRACRANIAL ARTERIAL OCCLUSION OR ANEURYSMAL CHANGE SEEN. Critical findings of bilateral pulmonary emboli called to Dr. Baltazar in the ER at 4:17 PM.
[2019-05-07] MEDS ORDERED: HEPARIN SODIUM,PORCINE 5,000 UNIT/ML 1 ML VIAL IV PRN (17:09)
[2019-05-07] MEDS ORDERED: HEPARIN SODIUM,PORCINE 10,000 UNIT/ML 1 ML VIAL IV ONE (17:09)
[2019-05-07] MEDS: SODIUM CHLORIDE 0.9% 1,000 ML IV SCH (17:54)
[2019-05-07] MEDS: HEPARIN SOD,PORK IN 0.45% NACL 25,000 UNIT in 0.45% NACL 1 250ML.BAG IV SCH (17:55)
[2019-05-07] MEDS ORDERED: DICYCLOMINE 10 MG CAP PO PRN (20:32)
[2019-05-07] MEDS ORDERED: NITROGLYCERIN SL TABS 0.4 MG TAB SUBLINGUAL PRN (20:32)
[2019-05-07] MEDS ORDERED: IPRATROPIUM-ALBUTEROL 3 ML NEB INHALATION PRN (20:32)
[2019-05-07] MEDS ORDERED: LOPERAMIDE 2 MG CAP PO PRN (20:32)
[2019-05-07] MEDS: ALPRAZolam 0.25 MG TAB PO SCH (22:18)
[2019-05-07] MEDS: ATENOLOL 25 MG TAB PO SCH (22:18)
[2019-05-07] MEDS: CARBIDOPA-LEVODOPA 10-100 MG 1 EACH TAB PO SCH (22:19)
[2019-05-07] MEDS: busPIRone HCl 5 MG TAB PO SCH (22:19)
[2019-05-07] MEDS: FLUTICASONE 50MCG/SPRAY NASAL 16GM EA NOSTRIL SCH (22:19)
[2019-05-07] MEDS: BACLOFEN 10 MG TAB PO SCH (22:19)
[2019-05-07] MEDS: levETIRAcetam 500 MG TAB PO SCH (22:19)
[2019-05-07] MEDS: FAMOTIDINE 20 MG TAB PO SCH (22:19)
[2019-05-07] MEDS: oxyCODONE-APAP 5-325MG 1 EACH TAB PO SCH (22:20)
[2019-05-07] MEDS: traZODone HCL 100 MG TAB PO SCH (22:20)
[2019-05-07] MEDS: MELATONIN 5 MG TABLET PO SCH (22:20)
[2019-05-08] MEDS: oxyCODONE-APAP 5-325MG 1 EACH TAB PO SCH ×3 (06:35→20:57)
[2019-05-08] MEDS: LEVOTHYROXINE 25 MCG TAB PO SCH (06:35)
[2019-05-08] MEDS: SODIUM CHLORIDE 0.9% 1,000 ML IV SCH ×3 (06:36→23:15)
[2019-05-08 07:19] LABS: Anisocytosis Slight; Basophils % (A) 0 %; Eosinophils % (A) 0 %; HCT 34.2 % (34.0-46.0); HGB 11.1 gm/dL (11.4-16.0); Hypochromasia Slight; Lymphocytes # (A) 0.5 k/uL (1.0-4.8); Lymphocytes % (A) 6 %; MCH 30.5 pg (25.0-35.0); MCHC 32.4 g/dL (31.0-37.0); MCV 94.2 fL (80.0-100.0); Mean Platelet Volume 8.3; Monocytes # (A) 0.7 k/uL (0-1.0); Monocytes % (A) 8 %; Neutrophils # (A) 7.2 k/uL (1.3-7.7); Neutrophils % (A) 85 %; Platelet Count 382 k/uL (150-450); RBC 3.64 m/uL (3.80-5.40); RDW 16.6 % (11.5-15.5); WBC 8.5 k/uL (3.8-10.6)
[2019-05-08 07:52] LABS: Cholesterol 313 mg/dL (<200); HDL Cholesterol 77 mg/dL (40-60); LDL Cholesterol,Calculated 222 mg/dL (0-99); Triglycerides 70 mg/dL (<150)
[2019-05-08] MEDS ORDERED: NON FORMULARY DRUG (Prostat Awc 30 ML) PO SCH (09:00)
[2019-05-08] MEDS: BACLOFEN 10 MG TAB PO SCH ×3 (09:08→20:57)
[2019-05-08] MEDS: PANTOPRAZOLE 40 MG TABLET PO SCH (09:08)
[2019-05-08] MEDS: busPIRone HCl 5 MG TAB PO SCH ×2 (09:08→20:56)
[2019-05-08] MEDS: ACETAMINOPHEN TAB 325 MG TAB PO PRN (09:08)
[2019-05-08] MEDS: LORATADINE 10 MG TAB PO SCH (09:08)
[2019-05-08] MEDS: CARBIDOPA-LEVODOPA 10-100 MG 1 EACH TAB PO SCH ×3 (09:09→20:57)
[2019-05-08] MEDS: ATENOLOL 25 MG TAB PO SCH ×2 (09:09→20:58)
[2019-05-08] MEDS: FAMOTIDINE 20 MG TAB PO SCH (09:09)
[2019-05-08] MEDS: FLUoxetine HCL 20 MG CAP PO SCH (09:09)
[2019-05-08] MEDS: levETIRAcetam 500 MG TAB PO SCH ×2 (09:09→20:56)
[2019-05-08] MEDS: SYMBICORT 80-4.5 MCG INHALER INHALATION SCH ×2 (09:58→20:14)
--- NOTE | 2019-05-08 11:11 | US ---
EXAMINATION TYPE: US venous doppler duplex LE DATE OF EXAM: 05/08/2019 11:01 AM COMPARISON: NONE CLINICAL HISTORY: PE. Pulmonary embolism SIDE PERFORMED: Bilateral TECHNIQUE: The lower extremity deep venous system is examined utilizing real time linear array sonog wanda with graded compression, doppler sonography and color-flow sonography. VESSELS IMAGED: External Iliac Vein (EIV) Common Femoral Vein Deep Femoral Vein Greater Saphenous Vein * Femoral Vein Popliteal Vein Small Saphenous Vein * Proximal Calf Veins (* superficial vessels) Right Leg: Positive for DVT right popliteal vein and right proximal calf veins Left Leg: Positive for DVT left mid femoral vein to left proximal calf veins IMPRESSION: Bilateral DVT as discussed above.
--- NOTE | 2019-05-08 11:25 | P.PN ---
Subjective Progress Note Date: 05/08/19 Principal diagnosis: 73-year-old female patient of Dr. Delaney, chronically bedbound, resides at [facility], has chronic sacral wound stage IV, with wound cultures positive for MRSA, coronary artery disease, chronic congestive heart failure, COPD, previous history of CVA, hypertension, hyperlipidemia, chronic kidney disease, rheumatoid arthritis, seizure disorder hypothyroidism, who was brought into the emergency department per EMS on 05/07/2019 for evaluation of left facial numbness, and left arm numbness for 2 days. Patient states she had recently had ear tubes put in for ear infection by Dr. Billings, and the ear tube on the right side had fallen out, however the left side ear tube has not. She has been having increasing pain in her left ear but denies any drainage. She is also having some sinus pressure and pain over left until and left maxilla ry sinuses. No obvious facial asymmetry, her left dressage instructor is weaker than the right. She also had some headaches, nausea. She does admit to having some shortness of breath and discomfort on her left breast area worsened with deep inspiration and coughing. Denies any hemoptysis. Does admit to some pain and swelling in her legs. In the emergency department brain CT was completed showing stable mild generalized atrophy and changes of chronic small vessel ischemic disease no acute intracranial abnormality. Chest x-ray showed central interstitial densities, or could reflect pulmonary arterial hypertension. CT brain angiography showed patent vertebral and basilar arteries, scattered mild atherosclerotic calcifications within the carotid siphons with both internal carotid arteries patent, no aneurysmal changes, and the remainder of the anterior-posterior circulations were patent, however there were incidental finding of partially visualized bilateral pulmonary emboli involving the right a nd left upper lobar and segmental branches and additional central embolus involving the left main pulmonary artery. Patient was started on heparin for anticoagulation, been hemodynamically stable, she is on 3 L of supplemental oxygen, and her pulse ox is 93%. And we are consulted for acute bilateral pulmonary emboli Objective - Vital Signs Vital signs: Vital Signs Temp 97.7 F 05/08/19 04:00 Pulse 82 05/08/19 04:00 Resp 18 05/08/19 04:00 BP 135/73 05/08/19 04:00 Pulse Ox 93 L 05/08/19 04:00 Intake & Output 05/07/19 05/08/19 05/08/19 18:59 06:59 18:59 Intake Total 79.583 87.844 Output Total 1475 Balance -1395.417 87.844 Weight 77.56 kg 93 kg Intake: Intake, IV Titration 79.583 87.844 Amount Heparin Sod,Pork in 0.45% 79.583 87.844 NaCl 25,000 unit In 0.45 % NaCl 1 250ml.bag @ 18 UNITS/KG/HR 13.962 mls/hr IV .[id number] [facility] Rx#: [id number] Oral 0 Output: Urine 1475 Other: Voiding Method Indwelling Catheter - Exam GENERAL EXAM: Alert, very pleasant, 73-year-old white female, chronically bedbound, with no obvious facial asymmetry, on 3 L of oxygen, with a pulse ox of 93% comfortable in no apparent distress. HEAD: Normocephalic/atraumatic. EYES: Normal reaction of pupils, equal size. Conjunctiva pink, sclera white. NOSE: Clear with pink turbinates. THROAT: No erythema or exudates. NECK: No masses, no JVD, no thyroid enlargement, no adenopathy. CHEST: No chest wall deformity. Symmetrical expansion. LUNGS: Equal air entry with basilar crackles, but no wheeze, rhonchi or dullness. CVS: Regular rate and rhythm, normal S1 and S2, no gallops, no murmurs, no rubs ABDOMEN: Soft, nontender. No hepatosplenomegaly, normal bowel sounds, no guarding or rigidity. EXTREMITIES: No clubbing, no edema, no cyanosis, 2+ pulses and upper and lower extremities. MUSCULOSKELETAL: Muscle strength and tone normal. SPINE: No scoliosis or deformity SKIN: No rashes, stage IV sacral ulcer, with a clean wound bed, 100% granulated, no malodorous drainage, no slough, no necrotic tissue CENTRAL NERVOUS SYSTEM: Alert and oriented -3. No obvious facial asymmetry, s till complains of numbness on the left side of her face, and left arm, pain in the left ear, and pressure and pain in the left frontal and maxillary sinuses, left dressage instructor is weaker than the right PSYCHIATRIC: Alert and oriented -3. Appropriate affect. Intact judgment and insight. - Labs CBC & Chem 7: 05/08/19 06:36 05/07/19 15:31 Labs: Abnormal Lab Results - Last 24 Hours (Table) 05/07/19 05/07/19 05/07/19 Range/Units 15:31 15:31 22:11 RBC 3.60 L (3.80-5.40) m/uL Hgb 10.6 L (11.4-16.0) gm/dL Hct 33.3 L (34.0-46.0) % RDW 16.4 H (11.5-15.5) % Lymphocytes # (1.0-4.8) k/uL APTT >200.0 H* (22.0-30.0) sec Chloride 109 H (98-107) mmol/L BUN 30 H (7-17) mg/dL Creatinine 1.18 H (0.52-1.04) mg/dL Glucose 106 H (74-99) mg/dL Cholesterol (<200) mg/dL LDL Cholesterol, Calc (0-99) mg/dL HDL Cholesterol (40-60) mg/dL 05/08/19 05/08/19 05/08/19 Range/Units 06:36 06:36 06:36 RBC 3.64 L (3.80-5.40) m/uL Hgb 11.1 L (11.4-16.0) gm/dL Hct (34.0-46.0) % RDW 16.6 H (11.5-15.5) % Lymphocytes # 0.5 L (1.0-4.8) k/uL APTT >200.0 H* (22.0-30.0) sec Chloride (98-107) mmol/L BUN (7-17) mg/dL Creatinine (0.52-1.04) mg/dL Glucose (74-99) mg/dL Cholesterol 313 H (<200) mg/dL LDL Cholesterol, Calc 222 H (0-99) mg/dL HDL Cholesterol 77 H (40-60) mg/dL Assessment and Plan Plan: Assessment: #1. Acute bilateral pulmonary emboli, incidental finding on the CT angiogram of the brain, completed for purposes of neurologic workup for possibility of CVA #2. Left facial numbness, and left arm numbness, and left arm weakness, CT brain angiogram no large vessel intracranial arterial occlusion or aneurysmal change #3. Left ear pain, patient recently had bilateral ear tubes put in #4. History of coronary artery disease #5. Peripheral vascular disease with previous stenting #6. Chronic sacral wound, with MRSA infection, patient follows at the wound Center, and has recently received hyperbaric treatments #7. Recurrent congestive heart failure, unspecified #8. History of COPD #9. Previous history of CVA/TIA #10. Hypertension #11. Hyperlipidemia #12. History of rheumatoid arthritis #13. Seizure disorder #14. General medical debility, patient is chronically bedbound a resident of [facility] #15. Previous history of bleeding gastric ulcer Plan: Continue heparin infusion, echocardiogram is pending, hemodynamically patient is stable, does admit to some slight left chest discomfort with deep breathing, but no acute distress, no hemoptysis, we will check if she qualifies for Eliquis or Xarelto. Doppler ultrasounds of lower extremities revealed DVTs in the right popliteal vein and the right proximal calf veins, and left mid femoral to left proximal calf veins. She is still having left facial numbness and left arm numbness and weakness, neurology consultation is pending, will consult ENT service for left ear pain, Dr. Rosenberg and wound Center for wound care recommendations. We will continue to follow I performed a history & physical examination of the patient and discussed their management with my nurse practitioner, Rosa Lan. I reviewed the nurse practitioner's note and agree with the documented findings and plan of care. Lung sounds are positive for basilar crackles. The findings and the impression was discussed with the patient. I attest to the documentation by the nurse practitioner. Time with Patient: Greater than 30
[2019-05-08] MEDS: ALPRAZolam 0.25 MG TAB PO SCH ×2 (12:29→20:56)
[2019-05-08] MEDS: FOLIC ACID 1 MG TAB PO SCH (12:29)
[2019-05-08] MEDS: HEPARIN SOD,PORK IN 0.45% NACL 25,000 UNIT in 0.45% NACL 1 250ML.BAG IV SCH (12:36)
[2019-05-08] MEDS ORDERED: DIAZEPAM 5 MG/ML 2 ML INJ IVP STA (13:31)
--- NOTE | 2019-05-08 13:43 | P.CNNES ---
History of Present Illness Consult date: 05/08/19 Requesting physician: Josep Baltazar Reason for Consult: CVA History of Present Illness: Patient is a 73-year-old female, who has been nonambulatory for the last 1 year, states that for the last 3 days she has been noticing numbness of left side of his face, left arm and left leg. She was also having headache and the headache was going to the left ear. Patient had bilateral tympanostomy tubes placed, the right one has felt as expected but the left did not. Also complaining of pain in the left side of the neck. Patient underwent EKG, which revealed normal sinus rhythm. CT of the head showed stable mild generalized atrophy and changes of chronic small vessel ischemic disease. No acute process. Patient had CTA of head and neck, which revealed partially visualized bilateral pulmonary emboli involving the right and left upper lobar and segmental branches. Additional central embolus involving the left main pulmonary artery. Patent vertebral and carotid arteries of the neck. CTA of head showed no large vessel intercranial arterial occlusion or aneurysmal change. Chest x-ray showed central interstitial densities could reflect bronchitis or asthma. Ultrasound of the lower limbs revealed bilateral DVTs. Patient's blood tests was reviewed. Her hemoglobin is 7.1. Platelets 382. Electrolytes are normal, BUN 30 creatinine 1.18. Liver panel normal. Ammonia normal. Her total cholesterol is 313, LDL 222, HDL 77 and triglycerides 70. TSH normal. Patient had a normal EEG previously on 12/10/2017. Patient had a normal 2-D echo on 12/09/2017, with EF 55%. Her previous MRI of the cervical spine from 11/24/2014 showed mild disc bulge C5 6 and C6 7 with mild anterior thecal sac flattening. No cord contact or spinal canal stenosis. Patient also mentions that as she had history of a stroke affecting left side about 6-7 months ago. Patient also has chronic tremors which she believes is from use of antidepressant in the past. She also has panic attacks. Patient states she has stents in the legs placed 3 years ago. Patient has history of tobacco use of one pack per day for 50 years, quit 1 year ago. She has not smoked since 04/12/2018. She does not see a neurologist. ago. At that time her left face and arm became numb. She was admitted to the [facility]. Review of Systems As above. Complains of tremors. Some shortness of breath. She has rheumatoid arthritis. Denies diplopia loss of vision. Denies dysphagia. Past Medical History Past Medical History: Coronary Artery Disease (CAD), Cancer, Heart Failure, COPD, CVA/TIA, Hyperlipidemia, Hypertension, Rheumatoid Arthritis (RA), Seizure Disorder, Skin Disorder, Thyroid Disorder, Vascular Disorder Additional Past Medical History / Comment(s): SACRAL WOUND STAGE 3 ([facility] Arceo catheter. DAMARI'S ESOPHAGUS. IBS. Colorectal/anal cancer 2011. FIBROMYALGIA. Peripheral vascular disease with previous stenting to the lower extremities. Chronic back pain. "Blood poisoning and bowel obtruction. "Rapid heart rate with SOB". Walker with wheels. 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 Bone removed and yaquelin placed left leg. Surgery for bowel obstruction x 2. Lyly cataracts Past Anesthesia/Blood Transfusion Reactions: No Reported Reaction Past Psychological History: Depression, Panic Disorder Smoking Status: Former smoker Past Alcohol Use History: None Reported Additional Past Alcohol Use History / Comment(s): smoked since age 21, < 1 PPD. states quit smoking 8 months ago Past Drug Use History: None Reported - Past Family History Mother History Unknown: Yes Family Medical History: CVA/TIA Father History Unknown: Yes Additional Family Medical History / Comment(s): father of blot clots 6months after cabg Daughter(s) Family Medical History: Cancer Additional Family Medical History / Comment(s): bone Medications and Allergies Home Medications Medication Instructions Recorded Confirmed Type Baclofen [Lioresal] 10 mg PO TID@0900,1300,2100 02/22/16 05/07/19 History Folic Acid 1 mg PO DAILY@1300 02/22/16 05/07/19 History Levothyroxine Sodium [Synthroid] 25 mcg PO DAILY@0600 02/22/16 05/07/19 History busPIRone HCL 15 mg PO BID@0900,2100 02/22/16 05/07/19 History levETIRAcetam [Keppra] 500 mg PO BID@0900,2100 02/22/16 05/07/19 History Clopidogrel Bisulfate [Plavix] 75 mg PO DAILY@1700 04/23/18 05/07/19 History ALPRAZolam [Xanax] 0.25 mg PO BID@1300,2100 05/14/18 05/07/19 History Fluticasone/Vilanterol [Breo 1 puff INHALATION DAILY@0900 05/15/18 05/07/19 History Ellipta 100-25 Mcg Inhaler] Mylanta 30 ml PO Q4H PRN 05/15/18 05/07/19 History Nitroglycerin Sl Tabs [Nitrostat] 0.4 mg SL Q5M PRN 05/15/18 05/07/19 History Acetaminophen Tab [Tylenol] 650 mg PO Q4H PRN 06/13/18 05/07/19 History Fluticasone Nasal Sutton [Flonase 1 spray EA NOSTRIL BID@0900,2100 06/13/18 05/07/19 History Nasal Sutton] Loperamide [Imodium] 2 mg PO Q8H PRN 06/13/18 05/07/19 History Sodium Chloride [Saline Nasal 2 spray EA NOSTRIL 06/13/18 05/07/19 History Sutton] TID@0900,1300,2100 Melatonin 10 mg PO HS@209906/14/18 05/07/19 History oxyCODONE HCL/ACETAMINOPHEN 1 tab PO TID@0600,1400,2200 #9 06/18/18 05/07/19 Rx [Endocet 5-325 mg] tablet FLUoxetine HCL [PROzac] 20 mg PO DAILY@0900 07/08/18 05/07/19 History Tofacitinib Citrate [Xeljanz Xr] 11 mg PO DAILY@0900 08/05/18 05/07/19 History Atenolol [Tenormin] 12.5 mg PO BID@0900,209905/07/19 05/07/19 History Carbidopa-Levodopa 10-100 mg 1 tab PO TID@0900,1300,2100 05/07/19 05/07/19 History [Sinemet 10-100] Dicyclomine [Bentyl] 10 mg PO BID PRN 05/07/19 05/07/19 History Ipratropium-Albuterol Nebulize 3 ml INHALATION RT-QID PRN 05/07/19 05/07/19 History [Duoneb 0.5 mg-3 mg/3 ml Soln] Loratadine [Claritin] 10 mg PO DAILY@0900 05/07/19 05/07/19 History Pantoprazole Sodium [Protonix] 40 mg PO DAILY@0900 05/07/19 05/07/19 History Prostat Awc 30 ml PO BID@0900,1700 05/07/19 05/07/19 History traZODone HCL [Desyrel] 100 mg PO HS@2100 05/07/19 05/07/19 History Allergies Allergy/AdvReac Type Severity Reaction Status Date / Time amitriptyline Allergy Unknown Verified 05/07/19 18:03 aspirin Allergy Unknown Verified 05/07/19 18:03 ciprofloxacin [From Cipro] Allergy Unknown Verified 05/07/19 18:03 codeine Allergy Hallucinati Verified 05/07/19 18:03 [From Tylenol-Codeine #3] ons ezetimibe Allergy Unknown Verified 05/07/19 18:03 fluoxetine [From Prozac] Allergy Unknown Verified 05/07/19 18:03 ibuprofen [From Motrin] Allergy Unknown Verified 05/07/19 18:03 indomethacin [From Indocin] Allergy Unknown Verified 05/07/19 18:03 Iodinated Contrast Media Allergy Unknown Verified 05/07/19 18:03 [Iodinated Contrast- Oral and IV Dye] niacin Allergy Unknown Verified 05/07/19 18:03 nitrofurantoin Allergy Unknown Verified 05/07/19 18:03 Penicillins Allergy Anaphylaxis Verified 05/07/19 18:03 pregabalin Allergy Unknown Verified 05/07/19 18:03 [id number] Reductase Allergy Unknown Verified 05/07/19 18:03 Inhibitor Sulfa (Sulfonamide AdvReac Nausea & Verified 05/07/19 18:03 Antibiotics) Vomiting & Diarrhea Physical Examination - Vital Signs Vital Signs: Vital Signs Temp Pulse Pulse Resp BP BP Pulse Ox 05/08/19 08:00 97.2 F L 94 20 170/98 92 L 05/08/19 04:00 97.7 F 82 18 135/73 93 L 05/08/19 00:00 97.6 F 74 18 127/60 97 05/07/19 20:00 97.7 F 74 18 162/78 96 05/07/19 18:53 97.5 F L 76 22 175/88 97 05/07/19 17:56 71 18 148/98 97 05/07/19 17:30 128/99 05/07/19 17:00 142/115 05/07/19 16:30 70 14 166/84 96 05/07/19 16:00 70 18 151/76 94 L 05/07/19 15:45 83 20 124/96 94 L 05/07/19 15:30 88 19 113/93 93 L 05/07/19 14:59 98.1 F 83 19 118/93 93 L Intake and Output 05/07/19 05/08/19 05/08/19 22:59 06:59 14:59 Intake Total 79.583 112.665 Output Total 1475 Balance -1395.417 112.665 Intake: Intake, IV Titration 79.583 112.665 Amount Heparin Sod,Pork in 0.45% 79.583 112.665 NaCl 25,000 unit In 0.45 % NaCl 1 250ml.bag @ 18 UNITS/KG/HR 13.962 mls/hr IV .[id number] [facility] Rx#: [id number] Oral 0 Output: Urine 1475 Other: Voiding Method Indwelling Catheter Indwelling Catheter Indwelling Catheter Weight 77.56 kg 93 kg On examination patient is an elderly female, in no distress. She is anxious, has nervous tremors noted at rest. The tremors did go away while I was examining her arms but does come back and she appears very tense. Speech and language functions are normal. On cranial nerve examination her pupils are round and reactive, visual pradhan are full, face is symmetric and tongue protrudes the midline. Palatal elevation sensation normal. On muscle strength testing patient has left pronator drift. The strength is normal in the right arm and right leg. On the left side her deltoid, biceps, triceps and jig builder are all 4+. Her left ankle appears weaker than the right. Likewise her hip flexion was better on the right as compared to left. Reflexes are diminished and plantars are downgoing. Sensory touch is decreased in left arm and leg. Patient Stone is normal. She has tremor at rest, which appears somewhat combination of tremors at rest, enhanced because of anxiety. Results - Laboratory Findings CBC and BMP: 12/27/19 06:36 05/07/19 15:31 Abnormal Lab Findings: Abnormal Labs 05/07/19 05/07/19 05/07/19 15:31 15:31 22:11 RBC 3.60 L Hgb 10.6 L Hct 33.3 L RDW 16.4 H Lymphocytes # APTT >200.0 H* Chloride 109 H BUN 30 H Creatinine 1.18 H Glucose 106 H Cholesterol LDL Cholesterol, Calc HDL Cholesterol 05/08/19 05/08/19 05/08/19 06:36 06:36 06:36 RBC 3.64 L Hgb 11.1 L Hct RDW 16.6 H Lymphocytes # 0.5 L APTT >200.0 H* Chloride BUN Creatinine Glucose Cholesterol 313 H LDL Cholesterol, Calc 222 H HDL Cholesterol 77 H Assessment and Plan Assessment: * 73-year-old female admitted with a three-day history of possible left-sided numbness of the body. Examination reveals mild left hemiparesis. Rule out CVA. * Bilateral DVTs and PE. Patient on anticoagulation. * History of CVA 3 years ago affected left side. * Hypertension * Hyperlipidemia * Rheumatoid arthritis. Plan: * MRI of the brain was performed today, which revealed no acute stroke. Only showed some small vessel disease.. * Patient already has been started on anticoagulation for bilateral DVT and PE, which hopefully will prevent further strokes also. * CTA of head and neck showed no significant stenosis. * 2-D echocardiogram was performed today, which revealed normal EF 55-60%. Normal size of the left ventricle. * Suggest starting statins, but patient is ALLERGIC to "statins and niacin". * Continue Sinemet. * Patient needs to follow-up with neurologist as outpatient to manage her trem ors/?Parkinson's.
[2019-05-08] MEDS: TOFACITINIB CITRATE 11 MG PO SCH (13:50)
--- NOTE | 2019-05-08 16:15 | P.CONS ---
History of Present Illness - Reason for Consult Consult date: 05/08/19 DVT,PE Requesting physician: Padmini Liriano - Chief Complaint CVA symptoms, lt sided deficit - History of Present Illness Mrs. Mendoza is a very pleasant 73-year-old female resident of [facility] who has seen Dr. Knott in the past for anal canal cancer. Patient noticed rectal bleeding in January 2012, symptoms persisted. Patient had a sigmoidoscopy with Dr. Aden on 03/17/2012, she had a mass, ultimately, pathology was determined to be invasive carcinoma. CT scan on 04/10/2012 was negative. She had concurrent chemoradiation starting in April 2012. She completed chemotherapy 06/23/2012, radiation therapy on 07/03/2012. Patient stayed current on her follow-up, no evidence of recurrence. In September 2014 there was a liver lesion at the dome of her liver, MRI revealed focal area of fat. She had [address] scans in 2014 with no evidence of disease recurrence. She was last seen by Dr. Knott in July 2016, she was supposed to have 6 mo f/u-pt states she does n ot see Dr. Knott anymore because her cancer is cured. Patient states that she was in her normal state of health until waking up last night with left-sided deficit, she feels it's related to tubes she had placed in her ears. Some of the symptoms are improved, she states some chronic bilateral upper extremity tremors, she states her mood stabilizing medications are going to be adjusted for the same. Patient denied any sudden onset difficulty in breathing, lower extremity swelling, pain in the lower extremities, denies any recent injury, unusual immobility, hormonal usage. Denies SANDRITA, dysphagia, odynophagia. Review of Systems 14 point ROS is negative except as stated in HPI` Past Medical History Past Medical History: Coronary Artery Disease (CAD), Cancer, Heart Failure, COPD, CVA/TIA, Hyperlipidemia, Hypertension, Rheumatoid Arthritis (RA), Seizure Disorder, Skin Disorder, Thyroid Disorder, Vascular Disorder Additional Past Medical History / Comment(s): SACRAL WOUND STAGE 3 (WOUND CLIN IC). Arceo catheter. DAMARI'S ESOPHAGUS. IBS. Colorectal/anal cancer 2011. FIBROMYALGIA. Peripheral vascular disease with previous stenting to the lower extremities. Chronic back pain. "Blood poisoning and bowel obtruction. "Rapid heart rate with SOB". Walker with wheels. History of Any Multi-Drug Resistant Organisms: C-DIFF, Other MDRO, VRE Year Discovered:: 04/2019 MDRO Source:: C Diff Past Surgical History: Appendectomy, Back Surgery, Bowel Resection, Hysterectomy, Joint Replacement, Orthopedic Surgery Additional Past Surgical History / Comment(s): [place] knee replacement &lyly hip replacement. Bone removed and yaquelin placed left leg. Surgery for bowel obstruction x 2. Lyly cataracts Past Anesthesia/Blood Transfusion Reactions: No Reported Reaction Past Psychological History: Depression, Panic Disorder Smoking Status: Former smoker Past Alcohol Use History: None Reported Additional Past Alcohol Use History / Comment(s): smoked since age 21, < 1 PPD. states quit smoking 8 months ago Past Drug Use History: None Reported - Past Family History Mother History Unknown: Yes Family Medical History: CVA/TIA Father History Unknown: Yes Additional Family Medical History / Comment(s): father of blot clots 6months after cabg Daughter(s) Family Medical History: Cancer Additional Family Medical History / Comment(s): bone Medications and Allergies Home Medications Medication Instructions Recorded Confirmed Type Baclofen [Lioresal] 10 mg PO TID@0900,1300,2100 02/22/16 05/07/19 History Folic Acid 1 mg PO DAILY@1300 02/22/16 05/07/19 History Levothyroxine Sodium [Synthroid] 25 mcg PO DAILY@0600 02/22/16 05/07/19 History busPIRone HCL 15 mg PO BID@0900,2100 02/22/16 05/07/19 History levETIRAcetam [Keppra] 500 mg PO BID@0900,2100 02/22/16 05/07/19 History Clopidogrel Bisulfate [Plavix] 75 mg PO DAILY@1700 04/23/18 05/07/19 History ALPRAZolam [Xanax] 0.25 mg PO BID@1300,2100 05/14/18 05/07/19 History Fluticasone/Vilanterol [Breo 1 puff INHALATION DAILY@0900 05/15/18 05/07/19 History Ellipta 100-25 Mcg Inhaler] Mylanta 30 ml PO Q4H PRN 05/15/18 05/07/19 History Nitroglycerin Sl Tabs [Nitrostat] 0.4 mg SL Q5M PRN 05/15/18 05/07/19 History Acetaminophen Tab [Tylenol] 650 mg PO Q4H PRN 06/13/18 05/07/19 History Fluticasone Nasal [place] [Flonase 1 spray EA NOSTRIL BID@0900,209906/13/18 05/07/19 History Nasal [place]] Loperamide [Imodium] 2 mg PO Q8H PRN 06/13/18 05/07/19 History Sodium Chloride [Saline Nasal 2 spray EA NOSTRIL 06/13/18 05/07/19 History [place]] TID@0900,1300,2100 Melatonin 10 mg PO HS@209906/14/18 05/07/19 History oxyCODONE HCL/ACETAMINOPHEN 1 tab PO TID@0600,1400,2200 #9 06/18/18 05/07/19 Rx [Endocet 5-325 mg] tablet FLUoxetine HCL [PROzac] 20 mg PO DAILY@0900 07/08/18 05/07/19 History Tofacitinib Citrate [Xeljanz Xr] 11 mg PO DAILY@0900 08/05/18 05/07/19 History Atenolol [Tenormin] 12.5 mg PO BID@0900,209905/07/19 05/07/19 History Carbidopa-Levodopa 10-100 mg 1 tab PO TID@0900,1300,209905/07/19 05/07/19 History [Sinemet 10-100] Dicyclomine [Bentyl] 10 mg PO BID PRN 05/07/19 05/07/19 History Ipratropium-Albuterol Nebulize 3 ml INHALATION RT-QID PRN 05/07/19 05/07/19 History [Duoneb 0.5 mg-3 mg/3 ml Soln] Loratadine [Claritin] 10 mg PO DAILY@0900 05/07/19 05/07/19 History Pantoprazole Sodium [Protonix] 40 mg PO DAILY@0900 05/07/19 05/07/19 History Prostat Awc 30 ml PO BID@0900,1700 05/07/19 05/07/19 History traZODone HCL [Desyrel] 100 mg PO HS@209905/07/19 05/07/19 History Allergies Allergy/AdvReac Type Severity Reaction Status Date / Time amitriptyline Allergy Unknown Verified 05/07/19 18:03 aspirin Allergy Unknown Verified 05/07/19 18:03 ciprofloxacin [From Cipro] Allergy Unknown Verified 05/07/19 18:03 codeine Allergy Hallucinati Verified 05/07/19 18:03 [From Tylenol-Codeine #3] ons ezetimibe Allergy Unknown Verified 05/07/19 18:03 fluoxetine [From Prozac] Allergy Unknown Verified 05/07/19 18:03 ibuprofen [From Motrin] Allergy Unknown Verified 05/07/19 18:03 indomethacin [From Indocin] Allergy Unknown Verified 05/07/19 18:03 Iodinated Contrast Media Allergy Unknown Verified 05/07/19 18:03 [Iodinated Contrast- Oral and IV Dye] niacin Allergy Unknown Verified 05/07/19 18:03 nitrofurantoin Allergy Unknown Verified 05/07/19 18:03 Penicillins Allergy Anaphylaxis Verified 05/07/19 18:03 pregabalin Allergy Unknown Verified 05/07/19 18:03 [id number]-[id number]-Cca Reductase Allergy Unknown Verified 05/07/19 18:03 Inhibitor Sulfa (Sulfonamide AdvReac Nausea & Verified 05/07/19 18:03 Antibiotics) Vomiting & Diarrhea Physical Exam Vitals: Vital Signs Temp Pulse Pulse Resp BP BP Pulse Ox 05/08/19 12:00 20 05/08/19 08:00 97.2 F L 94 20 170/98 92 L 05/08/19 04:00 97.7 F 82 18 135/73 93 L 05/08/19 00:00 97.6 F 74 18 127/60 97 05/07/19 20:00 97.7 F 74 18 162/78 96 05/07/19 18:53 97.5 F L 76 22 175/88 97 05/07/19 17:56 71 18 148/98 97 05/07/19 17:30 128/99 05/07/19 17:00 142/115 05/07/19 16:30 70 14 166/84 96 05/07/19 16:00 70 18 151/76 94 L 05/07/19 15:45 83 20 124/96 94 L Intake and Output 05/08/19 05/08/19 05/08/19 06:59 14:59 22:59 Intake Total 79.583 112.665 Output Total 1475 Balance -1395.417 112.665 Intake: Intake, IV Titration 79.583 112.665 Amount Heparin Sod,Pork in 0.45% 79.583 112.665 NaCl 25,000 unit In 0.45 % NaCl 1 250ml.bag @ 18 UNITS/KG/HR 13.962 mls/hr IV .[id number] [facility] Rx#: [id number] Oral 0 Output: Urine 1475 Other: Voiding Method Indwelling Catheter Indwelling Catheter Weight 93 kg - Constitutional General appearance: average body habitus, cooperative, no acute distress - EENT very dry mouth Eyes: anicteric sclerae, EOMI ENT: hearing grossly normal - Neck Neck: no lymphadenopathy - Respiratory Respiratory: bilateral: diminished - Cardiovascular Rhythm: regular Heart sounds: normal: S1, S2 Abnormal Heart Sounds: no systolic murmur, no diastolic murmur, no rub, no S3 Gallop, no S4 Gallop, no click, no other leg Peripheral Edema: bilateral: Trace - Gastrointestinal General gastrointestinal: no absent bowel sounds, no decreased bowel sounds, no distended, no hepatomegaly, no hyperactive bowel sounds, normal bowel sounds, no organomegaly, no rigid, no scaphoid, soft, no splenomegaly, no tenderness, no umbilical hernia, no ventral hernia - Integumentary Integumentary: normal - Neurologic Slight left facial droop, bilateral upper extremity tremor R>L - Psychiatric Psychiatric: A&O x's 3 Results CBC & Chem 7: 05/08/19 06:36 05/07/19 15:31 Labs: Abnormal Lab Results - Last 24 Hours (Table) 05/07/19 05/07/19 05/07/19 Range/Units 15:31 15:31 22:11 RBC 3.60 L (3.80-5.40) m/uL Hgb 10.6 L (11.4-16.0) gm/dL Hct 33.3 L (34.0-46.0) % RDW 16.4 H (11.5-15.5) % Lymphocytes # (1.0-4.8) k/uL APTT >200.0 H* (22.0-30.0) sec Chloride 109 H (98-107) mmol/L BUN 30 H (7-17) mg/dL Creatinine 1.18 H (0.52-1.04) mg/dL Glucose 106 H (74-99) mg/dL Cholesterol (<200) mg/dL LDL Cholesterol, Calc (0-99) mg/dL HDL Cholesterol (40-60) mg/dL 05/08/19 05/08/19 05/08/19 Range/Units 06:36 06:36 06:36 RBC 3.64 L (3.80-5.40) m/uL Hgb 11.1 L (11.4-16.0) gm/dL Hct (34.0-46.0) % RDW 16.6 H (11.5-15.5) % Lymphocytes # 0.5 L (1.0-4.8) k/uL APTT >200.0 H* (22.0-30.0) sec Chloride (98-107) mmol/L BUN (7-17) mg/dL Creatinine (0.52-1.04) mg/dL Glucose (74-99) mg/dL Cholesterol 313 H (<200) mg/dL LDL Cholesterol, Calc 222 H (0-99) mg/dL HDL Cholesterol 77 H (40-60) mg/dL CT scan - chest: report reviewed Venous US: report reviewed Assessment and Plan (1) DVT, bilateral lower limbs Current Visit: Yes Status: Acute Priority: High Code(s): I82.403 - ACUTE EMBOLISM AND THOMBOS UNSP DEEP VEINS OF LOW EXTRM, BI SNOMED Code(s): 488977189 (2) Pulmonary embolus Current Visit: Yes Status: Acute Priority: High Code(s): I26.99 - OTHER PULMONARY EMBOLISM WITHOUT ACUTE COR PULMONALE SNOMED Code(s): 34119605 Plan: Bilateral lower extremity DVT and LLL PE. Heparin drip. Eliquis recommended as oral anticoagulant. Due to lack of f/u in the last 4 years, unprovoked BLE DVT, PE and non healing perirectal wounds CT AP ordered. Not sure when pt last seen by GI, may need to follow up outpatient
[2019-05-08] MEDS ORDERED: IOPAMIDOL CONTRAST (ORAL USE) VIAL PO PRN (16:16)
[2019-05-08] MEDS ORDERED: predniSONE 50 MG TAB PO ONE (16:19)
[2019-05-08] MEDS ORDERED: diphenhydrAMINE 50 MG CAP PO ONE (16:19)
[2019-05-08] MEDS: CLOPIDOGREL 75 MG TAB PO SCH (17:37)
[2019-05-08] MEDS: FLUTICASONE 50MCG/SPRAY NASAL 16GM EA NOSTRIL SCH ×2 (17:45→21:27)
--- NOTE | 2019-05-08 19:24 | MR ---
EXAMINATION TYPE: MR brain and iac wo/w con DATE OF EXAM: 05/08/2019 COMPARISON: 06/28/2011 HISTORY: CVA, PE, EUSTACHEAN TUBE SX, EAR PAIN VERTIGO CONTRAST: Standard multiplanar, multisequence MRI departmental protocol utilizing 9 mL intravenous Gadavist joleen olinium contrast. there is mild cerebral cortical atrophy. There is no mass effect nor midline shift. There is no sign of intracranial hemorrhage. There is no evidence of cortical infarct. There are a few areas of increa sed signal in the periventricular white matter on the FLAIR images that measure up to 5 mm. Total num luca is less than 10. The brainstem is intact. Cerebellum is intact. Contrast images show no pathologic enhancement. Corpus callosum is intact. Sella turcica appears normal. Internal auditory canals appear normal. There is no evidence of cerebellopontine angle mass. Acoustic and vestibular nerves appear normal. IMPRESSION: There are mild white matter changes that are nonspecific and probably relate to minimal chronic small vessel ischemia that has progressed compared to old exam. No evidence of posterior fossa focal abnor mality.
--- NOTE | 2019-05-08 19:33 | ECHOF ---
Referral Reason:Thrombus MEASUREMENTS -------- HEIGHT: 160.0 cm WEIGHT: 90.7 kg BP: RVIDd: 3.2 cm (< 3.3) IVSd: 1.4 cm (0.6 - 1.1) LVIDd: 3.2 cm (3.9 - 5.3) LVPWd: 1.3 cm (0.6 - 1.1) IVSs: 1.4 cm LVIDs: 2.9 cm LVPWs: 1.1 cm Ao Diam: 2.7 cm (2.0 - 3.7) AV Cusp: 1.8 cm (1.5 - 2.6) RAP: 5.00 mmHg RVSP: 12.80 mmHg FINDINGS -------- Undetermined rhythm. This was a techncally difficult study with suboptimal views, , Lumason utilized for enhancement of im ages. Pt. not compliant. The left ventricular size is normal. There is mild concentric left ventricular hypertrophy. Overa ll left ventricular systolic function is normal with, an EF between 55 - 60 %. The right ventricle is normal in size. The left atrial size is normal. The right atrial size is normal. 5.0mg OF Lumason UTLIZED: 2 OR MORE WALL SEGMENTS NOT VISUALIZED. The aortic valve was not well visualized. There is no evidence of aortic regurgitation. Mild mitral annular calcification present. Mild mitral regurgitation is present. Trace tricuspid regurgitation present. Right ventricular systolic pressure is normal at < 35 mmHg. There is no evidence of pulmonary hypertension. The pulmonic valve was not well visualized. The aortic root size is normal. There is no pericardial effusion. CONCLUSIONS -------- 1. Undetermined rhythm. 2. Pt. not compliant. 3. The left ventricular size is normal. 4. There is mild concentric left ventricular hypertrophy. 5. Overall left ventricular systolic function is normal with, an EF between 55 - 60 %. 6. The left atrial size is normal. 7. 5.0mg OF Lumason UTLIZED: 2 OR MORE WALL SEGMENTS NOT VISUALIZED. 8. The aortic valve was not well visualized. 9. Mild mitral annular calcification present. 10. Mild mitral regurgitation is present. 11. Trace tricuspid regurgitation present. 12. Right ventricular systolic pressure is normal at < 35 mmHg. 13. The pulmonic valve was not well visualized. 14. The aortic root size is normal. 15. There is no pericardial effusion. DESIGN PAINTER: Suyapa Haney RDCS
[2019-05-08] MEDS: MELATONIN 5 MG TABLET PO SCH (20:56)
[2019-05-08] MEDS: traZODone HCL 100 MG TAB PO SCH (20:57)
--- NOTE | 2019-05-08 21:43 | P.HPIM ---
History of Present Illness H&P Date: 05/08/19 Chief Complaint: left face numbness and weakness lef arm headache This is a 73-year-old female one of Dr. Delaney's patient with a known history of colorectal cancer, recurrent UTIs, COPD, depression, chronic decub in the sacral area follows with wound care center at [facility] and hypothyroidism and currently resides at [facility] the [place] x 1 year, and is wheelchair bound.. Patient was recently seen in the emergency department yesterday Secondary to left face numbness, left shoulder numbness, upper extremity numbness, for the past 3 days, accompanied by weakness of the upper extremity, pain in the upper shoulders, posterior back, for the past 3 days. She also has chronic leg swelling for the past 3 months, with pain, patient denies any chest pain or palpitations, she mentioned this to the nurse, however her neurologic exam was unremarkable to the time, and last night, when she mentioned this to the nurse again, she might be having a CVA, with the left arm weakness, and was subsequently sent to the emergency room for evaluation. We have conflicting sarah kwon from the emergency room as the emergency room mentions that she woke up with the numbness and weakness, per patient, this has been going on for the past 3 days. Patient has had leg swelling and pain left side, for the past 3 months, no Dopplers were done prior to admission, no new medication changes according to the patient. She is not on any blood thinner anticoagulation, however she had PAD with stents placed several months ago and is on Plavix for it. Patient is very anxious with information today, has refused to be seen by surgeon in the hospital for wound in the sacrum, however at the wound clinic, she is followed by [facility]ese Np patient refused to be seen by infectious disease while in the hospital. She has had multiple debridements of the sacrum, and had multiple referrals to plastic surgeon, however this is not amenable to treatment secondary to radiation changes to the skin. 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 Incidentally, the CTA of the chest showed partially visualized upper lobe and segmental partial pulmonary emboli on both sides, additional embolus in the left main pulmonary artery, patient was subsequently admitted secondary to TIA againstCVA, paraneoplastic syndrome as well as acute pulmonary emboli that was incidentally seen in the CT angiogram of the neck. We admitted the patient, with consultation to Dr. Jefferson from neurology, Dr. Abbott from oncology, Dr. Kelley from pulmonary medicine. Patient refused infectious disease consultation, patient was started on iv heparin, irina have requested MRi brain with IAC, doppler lyly lower extremitis, and soon will need spect ct o to be done this admissionf sacrum for osteomyelitis , Review of Systems Constitutional: Reports as per HPI, Reports anorexia, Reports fatigue, Reports sweats Ears: left: decreased hearing, earache Ears, nose, mouth and throat: Reports as per HPI, Reports neck fullness/pressure, Denies ant. neck pain, Denies bleeding gums, Denies dental pain, Denies dysphagia, Denies epistaxis, Denies headache, Denies hoarseness, Denies mouth pain, Denies nasal congestion, Denies nasal discharge, Denies neck lump, Denies nose pain, Denies odynophagia, Denies post-nasal drip, Denies sinus pain, Denies sinus pressure, Denies swelling in mouth, Denies swelling in throat, Denies sore throat, Denies vertigo, Denies voice changes Cardiovascular: Reports as per HPI, Denies chest pain, Denies claudication, Denies decreased exercise tolerance, Denies dyspnea on exertion, Denies edema, Denies high blood pressure, Denies irregular heart beat, Denies leg edema, Denies lightheadedness, Denies orthopnea, Denies palpitations, Denies paroxysmal nocturnal dyspnea, Denies phlebitis, Denies rapid heart beat, Denies shortness of breath, Denies syncope Respiratory: Reports as per HPI, Denies congestion, Denies cough, Denies cough with sputum, Denies dyspnea, Denies excessive sputum, Denies hemoptysis, Denies home oxygen, Denies pain, Denies pain on inspiration, Denies pleurisy, Denies respiratory infections, Denies sleep apnea, Denies snoring, Denies wheezing Gastrointestinal: Reports as per HPI, Denies abdominal pain, Denies belching, Denies bloating, Denies BRBPR, Denies change in bowel habits, Denies coffee ground emesis, Denies constipation, Denies diarrhea, Denies dyspepsia, Denies early satiety, Denies excessive gas, Denies heartburn, Denies hematemesis, Denies hematochezia, Denies indigestion, Denies jaundice, Denies lactose intolerance, Denies loss of appetite, Denies melena, Denies nausea, Denies vomiting Genitourinary: Reports as per HPI Menstruation: Reports as per HPI, Reports postmenopausal Musculoskeletal: Reports as per HPI, Reports gait dysfunction, Reports limitation of motion, Reports shooting leg pain Integumentary: Reports as per HPI, Denies acne, Denies boils, Denies brittle nails, Denies change in hair/nails, Denies color changes, Denies darkening of skin, Denies depigmentation, Denies dryness, Denies foot/leg ulcers, Denies growths, Denies hirsutism, Denies lesions, Denies onychomycosis, Denies pruritus, Denies rash, Denies sores, Denies striae, Denies unusual bruising, Denies wounds Neurological: Reports as per HPI, Denies aphasia, Denies ataxia, Denies balance difficulties, Denies burning pain, Denies change in mentation, Denies change in smell/taste, Denies change in speech, Denies confusion, Denies convulsions, Denies double vision, Denies gait dysfunction, Denies head injury, Denies headaches, Denies hearing difficulties, Denies lack of coordination, Denies loss of vision, Denies memory loss, Denies migraines, Denies motor disturbance, Denies numbness, Denies paralysis, Denies paresthesias, Denies seizures, Denies sensory deficit, Denies spasticity, Denies syncope, Denies tic, Denies tingling, Denies transient paralysis, Denies tremors, Denies vertigo, Denies weakness, Denies visual changes Psychiatric: Reports as per HPI Endocrine: Reports as per HPI Hematologic/Lymphatic: Reports as per HPI Allergic/Immunologic: Reports as per HPI, Denies allergic rhinitis, Denies anaphylaxis, Denies angioedema, Denies gluten intolerance, Denies persistent infections, Denies seasonal allergies, Denies urticaria, Denies wheezing Past Medical History Past Medical History: Coronary Artery Disease (CAD), Cancer, Heart Failure, COPD, CVA/TIA, Hyperlipidemia, Hypertension, Rheumatoid Arthritis (RA), Seizure Disorder, Skin Disorder, Thyroid Disorder, Vascular Disorder Additional Past Medical History / Comment(s): SACRAL WOUND STAGE 3 (WOUND CLINIC). Arceo catheter. DAMARI'S ESOPHAGUS. IBS. Colorectal/anal cancer 2011. FIBROMYALGIA. Peripheral vascular disease with previous stenting to the lower extremities. Chronic back pain. "Blood poisoning and bowel obtruction. "Rapid heart rate with SOB". Walker with wheels. History of Any Multi-Drug Resistant Organisms: C-DIFF, Other MDRO, VRE Date of last positivie culture/infection: 04/2019 MDRO Source:: C Diff Past Surgical History: Appendectomy, Back Surgery, Bowel Resection, Hysterectomy, Joint Replacement, Orthopedic Surgery Additional Past Surgical History / Comment(s): [employer] knee replacement &lyly hip rep lacement. Bone removed and yaquelin placed left leg. Surgery for bowel obstruction x 2. Lyly cataracts Past Anesthesia/Blood Transfusion Reactions: No Reported Reaction Past Psychological History: Depression, Panic Disorder Smoking Status: Former smoker Past Alcohol Use History: None Reported Additional Past Alcohol Use History / Comment(s): smoked since age 21, < 1 PPD. states quit smoking 8 months ago Past Drug Use History: None Reported - Past Family History Mother History Unknown: Yes Family Medical History: CVA/TIA Father History Unknown: Yes Additional Family Medical History / Comment(s): father of blot clots 6months after cabg Daughter(s) Family Medical History: Cancer Additional Family Medical History / Comment(s): bone Medications and Allergies Home Medications Medication Instructions Recorded Confirmed Type Baclofen [Lioresal] 10 mg PO TID@0900,1300,2100 02/22/16 05/07/19 History Folic Acid 1 mg PO DAILY@1300 02/22/16 05/07/19 History Levothyroxine Sodium [Synthroid] 25 mcg PO DAILY@0600 02/22/16 05/07/19 History busPIRone HCL 15 mg PO BID@0900,2100 02/22/16 05/07/19 History levETIRAcetam [Keppra] 500 mg PO BID@0900,2100 02/22/16 05/07/19 History Clopidogrel Bisulfate [Plavix] 75 mg PO DAILY@1700 04/23/18 05/07/19 History ALPRAZolam [Xanax] 0.25 mg PO BID@1300,2100 05/14/18 05/07/19 History Fluticasone/Vilanterol [Breo 1 puff INHALATION DAILY@0900 05/15/18 05/07/19 History Ellipta 100-25 Mcg Inhaler] Mylanta 30 ml PO Q4H PRN 05/15/18 05/07/19 History Nitroglycerin Sl Tabs [Nitrostat] 0.4 mg SL Q5M PRN 05/15/18 05/07/19 History Acetaminophen Tab [Tylenol] 650 mg PO Q4H PRN 06/13/18 05/07/19 History Fluticasone Nasal Nelson [Flonase 1 spray EA NOSTRIL BID@0900,2100 06/13/18 05/07/19 History Nasal Nelson] Loperamide [Imodium] 2 mg PO Q8H PRN 06/13/18 05/07/19 History Sodium Chloride [Saline Nasal 2 spray EA NOSTRIL 06/13/18 05/07/19 History Nelson] TID@0900,1300,2100 Melatonin 10 mg PO HS@209906/14/18 05/07/19 History oxyCODONE HCL/ACETAMINOPHEN 1 tab PO TID@0600,1400,2200 #9 06/18/18 05/07/19 Rx [Endocet 5-325 mg] tablet FLUoxetine HCL [PROzac] 20 mg PO DAILY@0900 07/08/18 05/07/19 History Tofacitinib Citrate [Xeljanz Xr] 11 mg PO DAILY@0900 08/05/18 05/07/19 History Atenolol [Tenormin] 12.5 mg PO BID@0900,209905/07/19 05/07/19 History Carbidopa-Levodopa 10-100 mg 1 tab PO TID@0900,1300,2100 05/07/19 05/07/19 History [Sinemet 10-100] Dicyclomine [Bentyl] 10 mg PO BID PRN 05/07/19 05/07/19 History Ipratropium-Albuterol Nebulize 3 ml INHALATION RT-QID PRN 05/07/19 05/07/19 History [Duoneb 0.5 mg-3 mg/3 ml Soln] Loratadine [Claritin] 10 mg PO DAILY@0900 05/07/19 05/07/19 History Pantoprazole Sodium [Protonix] 40 mg PO DAILY@0900 05/07/19 05/07/19 History Prostat Awc 30 ml PO BID@0900,1700 05/07/19 05/07/19 History traZODone HCL [Desyrel] 100 mg PO HS@2100 05/07/19 05/07/19 History Allergies Allergy/AdvReac Type Severity Reaction Status Date / Time amitriptyline Allergy Unknown Verified 05/07/19 18:03 aspirin Allergy Unknown Verified 05/07/19 18:03 ciprofloxacin [From Cipro] Allergy Unknown Verified 05/07/19 18:03 codeine Allergy Hallucinati Verified 05/07/19 18:03 [From Tylenol-Codeine #3] ons ezetimibe Allergy Unknown Verified 05/07/19 18:03 fluoxetine [From Prozac] Allergy Unknown Verified 05/07/19 18:03 ibuprofen [From Motrin] Allergy Unknown Verified 05/07/19 18:03 indomethacin [From Indocin] Allergy Unknown Verified 05/07/19 18:03 Iodinated Contrast Media Allergy Unknown Verified 05/07/19 18:03 [Iodinated Contrast- Oral and IV Dye] niacin Allergy Unknown Verified 05/07/19 18:03 nitrofurantoin Allergy Unknown Verified 05/07/19 18:03 Penicillins Allergy Anaphylaxis Verified 05/07/19 18:03 pregabalin Allergy Unknown Verified 05/07/19 18:03 Czqqoxl-Feh-Rig Reductase Allergy Unknown Verified 05/07/19 18:03 Inhibitor Sulfa (Sulfonamide AdvReac Nausea & Verified 05/07/19 18:03 Antibiotics) Vomiting & Diarrhea Physical Exam Vitals: Vital Signs Temp Pulse Pulse Resp BP BP Pulse Ox 05/08/19 04:00 97.7 F 82 18 135/73 93 L 05/08/19 00:00 97.6 F 74 18 127/60 97 05/07/19 20:00 97.7 F 74 18 162/78 96 05/07/19 18:53 97.5 F L 76 22 175/88 97 12/26/19 17:56 71 18 148/98 97 05/07/19 17:30 128/99 05/07/19 17:00 142/115 05/07/19 16:30 70 14 166/84 96 05/07/19 16:00 70 18 151/76 94 L 05/07/19 15:45 83 20 124/96 94 L 05/07/19 15:30 88 19 113/93 93 L 05/07/19 14:59 98.1 F 83 19 118/93 93 L Intake and Output 05/07/19 05/08/19 05/08/19 22:59 06:59 14:59 Intake Total 79.583 87.844 Output Total 1475 Balance -1395.417 87.844 Intake: Intake, IV Titration 79.583 87.844 Amount Heparin Sod,Pork in 0.45% 79.583 87.844 NaCl 25,000 unit In 0.45 % NaCl 1 250ml.bag @ 18 UNITS/KG/HR 13.962 mls/hr IV .[id number] [facility] Rx#: [id number] Oral 0 Output: Urine 1475 Other: Voiding Method Indwelling Catheter Indwelling Catheter Weight 77.56 kg 93 kg - Constitutional General appearance: cooperative, no acute distress, obese - EENT Eyes: anicteric sclerae, EOMI, PERRLA, normal appearance ENT: NA/AT, normal oropharynx - Neck Neck: normal ROM - Respiratory Respiratory: bilateral: CTA, negative: diminished, dullness, rales - Cardiovascular Rhythm: regular Heart sounds: normal: S1, S2 Abnormal Heart Sounds: systolic murmur - Gastrointestinal General gastrointestinal: normal bowel sounds, soft - Integumentary Integumentary: decreased turgor, normal - Neurologic Neurologic: CNII-XII intact - Musculoskeletal Musculoskeletal: gait normal, strength equal bilaterally - Psychiatric Psychiatric: A&O x's 3, appropriate affect, intact judgment & insight Results CBC & Chem 7: 05/08/19 06:36 05/07/19 15:31 Labs: Abnormal Lab Results - Last 24 Hours (Table) 05/07/19 05/07/19 05/07/19 Range/Units 15:31 15:31 22:11 RBC 3.60 L (3.80-5.40) m/uL Hgb 10.6 L (11.4-16.0) gm/dL Hct 33.3 L (34.0-46.0) % RDW 16.4 H (11.5-15.5) % Lymphocytes # (1.0-4.8) k/uL APTT >200.0 H* (22.0-30.0) sec Chloride 109 H (98-107) mmol/L BUN 30 H (7-17) mg/dL Creatinine 1.18 H (0.52-1.04) mg/dL Glucose 106 H (74-99) mg/dL Cholesterol (<200) mg/dL LDL Cholesterol, Calc (0-99) mg/dL HDL Cholesterol (40-60) mg/dL 05/08/19 05/08/19 05/08/19 Range/Units 06:36 06:36 06:36 RBC 3.64 L (3.80-5.40) m/uL Hgb 11.1 L (11.4-16.0) gm/dL Hct (34.0-46.0) % RDW 16.6 H (11.5-15.5) % Lymphocytes # 0.5 L (1.0-4.8) k/uL APTT >200.0 H* (22.0-30.0) sec Chloride (98-107) mmol/L BUN (7-17) mg/dL Creatinine (0.52-1.04) mg/dL Glucose (74-99) mg/dL Cholesterol 313 H (<200) mg/dL LDL Cholesterol, Calc 222 H (0-99) mg/dL HDL Cholesterol 77 H (40-60) mg/dL Most recent lab results Calcium 9.3 mg/dL (8.4-10.2) 05/07/19 15:31 Thrombosis Risk Factor Assmnt - DVT/VTE Prophylaxis DVT/VTE Prophylaxis: Pharmacologic Prophylaxis ordered - Choose All That Apply Any of the Below Risk Factors Present?: Yes Each Factor Represents 1 point: Obesity (BMI >25) Other Risk Factors: Yes Each Risk Factor Represents 2 Points: Age 61-74 years, Patient confined to bed Each Risk Factor Represents 3 Points: History of DVT/PE Other congenital or acquired thrombophilia - If yes, enter type in comment: No Thrombosis Risk Factor Assessment Total Risk Factor Score: 8 Thrombosis Risk Factor Assessment Level: High Risk Assessment and Plan Plan: 1. acute lyly PE and lyly dvt , with known history of malignancy, will need life long anticoagulation, heparin iv for now, then can switch to oral direct anticoag/ facor xa inhibitor. will consult dr abbott oncology. echo cardiogram, venous dopplers. in view of previous plavix use withh discontinue this in favor on the direct anticoagulants 2. left face numbness and left uppper extremitiy weakness TIA suspected but has residual left hemiparesis, mri brain failed to reveal ischemic or embolic event 3. old hemiparesis from previous cva , residual mhemiparesis left side, refusing statins/ zetia mentioning she is allergic to this. will discuss PSK-9 inhibitors like praluent or repatha howevere these drugs are very costly 4. uncontrolled hyperlipidemia, see above 5. parkinsons, significnt tremors 6 Chronic depression, anxiety and panic attacks. Sitter at bedside, will continue with BuSpar 15 mg twice a day, fluoxetine 20 mg and trazodone 100 mg 7 Insomnia: Trazodone 100 mg at at bedtime 8. Chronic Sacral ulcer: Follows up in wound center on a regular basis with jesus ptient refused to see Dr. Montejo as pt does not want any debridement , refused infectious disease consultation for osteomyelitis, will need spect ct imaging sacrum 9. 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 Chronic pain syndrome. Continue with Percocet 11. Hypertension. Atenolol 12.5 mg twice a day 12. Seizure. Continue home medication of Keppra 500 mg twice a day 13 Hypothyroidism. Continue with levothyroxine 25 g daily DVT/GI prophylaxis: skilled nursing anticoagulation with this new pe DVT; Protonix discharge planning return to [facility] [place]
[2019-05-09] MEDS: oxyCODONE-APAP 5-325MG 1 EACH TAB PO SCH ×3 (06:13→21:26)
[2019-05-09] MEDS: LEVOTHYROXINE 25 MCG TAB PO SCH (06:13)
[2019-05-09] MEDS: SODIUM CHLORIDE 0.9% 1,000 ML IV SCH ×2 (06:15→17:26)
[2019-05-09 06:32] LABS: Anisocytosis Slight; Basophils % (A) 0 %; Eosinophils % (A) 0 %; HCT 33.3 % (34.0-46.0); HGB 10.7 gm/dL (11.4-16.0); Hypochromasia Slight; Lymphocytes # (A) 0.3 k/uL (1.0-4.8); Lymphocytes % (A) 3 %; MCH 30.3 pg (25.0-35.0); MCHC 32.1 g/dL (31.0-37.0); MCV 94.2 fL (80.0-100.0); Mean Platelet Volume 8.2; Monocytes # (A) 0.5 k/uL (0-1.0); Monocytes % (A) 5 %; Neutrophils # (A) 10.1 k/uL (1.3-7.7); Neutrophils % (A) 90 %; Platelet Count 398 k/uL (150-450); RBC 3.54 m/uL (3.80-5.40); RDW 16.9 % (11.5-15.5); WBC 11.2 k/uL (3.8-10.6)
[2019-05-09 06:44] LABS: Calcium 9.2 mg/dL (8.4-10.2); Potassium 3.6 mmol/L (3.5-5.1)
--- NOTE | 2019-05-09 08:06 | CONS ---
CONSULTATION REASON FOR CONSULTATION: Left ear pain. HISTORY: This is a 73-year-old white female who is nonambulatory, who was admitted due to having numbness on the left side of the face acutely, left arm and left leg. She has a history of stroke about 3 years ago. She also has had some pain in the left ear over the last week. She has previous history of bilateral ventilation tube placement due to need for hyperbaric oxygen treatment for a nonhealing sacral wound with the ventilation tubes placed in early February to facilitate the hyperbaric oxygen treatments as she could not tolerate the pressure with eustachian tube dysfunction without ventilation tubes. She completed her hyperbaric oxygen treatment and she thinks that the right ventilation tube is extruded. Her ear pain is actually better today but still has some ear pain, but states that it radiates in the preauricular area and down into the neck on the left. She is admitted also for DVT and pulmonary embolus, bilateral. She is having no hearing change or ear drainage. PAST MEDICAL HISTORY: Positive for history of coronary artery disease, cancer, heart failure, COPD, TIA, CVA, hyperlipidemia, hypertension, rheumatoid arthritis, seizure disorder, thyroid disorder, vascular disorder. PAST SURGICAL HISTORY: As above as well as a sacral wound, Cortes's esophagus history, IBS, colorectal and anal cancer, probable myalgia. Additional past surgical history is appendectomy and back surgery, bowel resection, hysterectomy, joint replacement, orthopedic surgery, right knee replacement, bilateral hip replacement, surgery for bowel obstruction, cataract surgery. SOCIAL HISTORY: Did smoke, does not now. Alcohol none. She is in an extended care facility. FAMILY HISTORY: History of blood clot and cancer. MEDICATIONS: Baclofen, folic acid, Synthroid, Keppra, Plavix, Xanax, Breo, Mylanta, nitroglycerin, seizure medicine, Flonase, Imodium, oxycodone, Prozac, Xeljanz, Tenormin, Sinemet, Bentyl, DuoNeb, Claritin, Protonix, trazodone. ALLERGIES: AMITRIPTYLINE, ASPIRIN, CIPRO, CODEINE, EZETIMIBE, PROZAC INDOCIN, NIACIN, NITROFURANTOIN, PENICILLIN, PREGABALIN, STATINS, SULFA. REVIEW OF SYSTEMS: Reviewed in the History of Present Illness, otherwise noncontributory. Vital signs are stable overall, in the chart already. PHYSICAL EXAM: Well-developed elderly white female in no acute distress. She is conversant, awake and alert and oriented x3. HEENT. Head normocephalic and atraumatic. Ears and canals are clear. Tympanic membranes show ventilation tubes patent and intact bilaterally. There is no drainage, erythema or other abnormalities of the tympanic membranes. There is tenderness of the left temporomandibular joint, worse on oral excursion. No masses palpated in this area. The nose shows no drainage or obstruction. Mouth and throat shows the patient is edentulous. She has relatively dry mucosa. She does have dentures in place. Oropharynx shows no abnormal masses or lesions. NECK: Supple without adenopathy or tenderness noted. ASSESSMENT: 1. Left otalgia secondary to referred pain from left temporomandibular joint syndrome. 2. Eustachian tube dysfunction with ventilation tubes in place. PLAN: The patient was counseled on conservative TMJ instructions. She does have analgesics ordered. Could use local heat also if necessary. As an outpatient she should have her dentures checked for fit. The current ventilation tubes are still functional and are having no particular bearing on her symptoms presently. she should continue to keep her ears dry. If there are questions or concerns, please free to contact me. MMODL / IJN: [id number] /
[2019-05-09] MEDS: PANTOPRAZOLE 40 MG TABLET PO SCH (09:43)
[2019-05-09] MEDS: FAMOTIDINE 20 MG TAB PO SCH (09:43)
[2019-05-09] MEDS: ATENOLOL 25 MG TAB PO SCH ×2 (09:43→21:25)
[2019-05-09] MEDS: BACLOFEN 10 MG TAB PO SCH ×3 (09:43→21:25)
[2019-05-09] MEDS: FLUoxetine HCL 20 MG CAP PO SCH (09:43)
[2019-05-09] MEDS: levETIRAcetam 500 MG TAB PO SCH ×2 (09:44→21:25)
[2019-05-09] MEDS: CARBIDOPA-LEVODOPA 10-100 MG 1 EACH TAB PO SCH ×3 (09:44→21:25)
[2019-05-09] MEDS: LORATADINE 10 MG TAB PO SCH (09:44)
[2019-05-09] MEDS: FLUTICASONE 50MCG/SPRAY NASAL 16GM EA NOSTRIL SCH ×2 (09:44→22:09)
[2019-05-09] MEDS: busPIRone HCl 5 MG TAB PO SCH ×2 (09:44→21:25)
[2019-05-09] MEDS: TOFACITINIB CITRATE 11 MG PO SCH (09:45)
[2019-05-09] MEDS: SYMBICORT 80-4.5 MCG INHALER INHALATION SCH ×2 (09:50→21:57)
[2019-05-09] MEDS: ALPRAZolam 0.25 MG TAB PO SCH ×2 (12:53→21:25)
[2019-05-09] MEDS: FOLIC ACID 1 MG TAB PO SCH (12:53)
--- NOTE | 2019-05-09 14:14 | P.PN ---
Subjective Progress Note Date: 05/09/19 This is a 73-year-old female one of Dr. Delaney's patient with a known history of colorectal cancer, recurrent UTIs, COPD, depression, chronic decub in the sacral area follows with wound care center at [facility] and hypothyroidism and currently resides at [facility] [place] 1 year, and is wheelchair bound.. Patient was recently seen in the emergency department yesterday Secondary to left face numbness, left shoulder numbness, upper extremity numbness, for the past 3 days, accompanied by weakness of the upper extremity, pain in the upper shoulders, posterior back, for the past 3 days. She also has chronic leg swelling for the past 3 months, with pain, patient denies any chest pain or pal pitations, she mentioned this to the nurse, however her neurologic exam was unremarkable to the time, and last night, when she mentioned this to the nurse again, she might be having a CVA, with the left arm weakness, and was subsequently sent to the emergency room for evaluation. We have conflicting data from the emergency room as the emergency room mentions that she woke up with the numbness and weakness, per patient, this has been going on for the past 3 days. Patient has had leg swelling and pain left side, for the past 3 months, no Dopplers were done prior to admission, no new medication changes according to the patient. She is not on any blood thinner anticoagulation, however she had PAD with stents placed several months ago and is on Plavix for it. Patient is very anxious with information today, has refused to be seen by surgeon in the hospital for wound in the sacrum, however at the wound clinic, she is followed by [facility] patient refused to be seen by infectious disease while in the hospital. She has had multiple debridements of the sacrum, and had multiple referrals to plastic surgeon, however this is not amenable to treatment secondary to radiation changes to the skin. 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 Incidentally, the CTA of the chest showed partially visualized upper lobe and segmental partial pulmonary emboli on both sides, additional embolus in the left main pulmonary artery, patient was subsequently admitted secondary to TIA againstCVA, paraneoplastic syndrome as well as acute pulmonary emboli that was incidentally seen in the CT angiogram of the neck. We admitted the patient, with consultation to Dr. Jefferson from neurology, Dr. Abbott from oncology, Dr. Kelley from pulmonary medicine. Patient refused infectious disease consultation, patient was started on iv heparin, irina have requested MRi brain with IAC, doppler lyly lower extremitis, and soon will need spect ct o to be done this admissionf sacrum for osteomyelitis 05/09: Patient is calm and today, he has less pain in the neck area, seen by ENT, tympanostomy tube is in place, they have suggested TMJ as a problem for the left ear left base, MRI brain ruled out CVA,, patient still is refusing statins, has seen by oncology, with recommendations for eliquis, imaging studies are underway for GI cancer evaluation, with a CAT scan, patient would need SPECT CT of the sacrum in a.m. to evaluate for osteomyelitis however CTs underwent also for the abdomen. We will with this results, waiting for creatinine clear currently at 1.08 from 1.18, C4 imaging studies, continue to hydrate. Patient h as tremors, although less will discontinue IV heparin today, and transition to eliquis today, no RV strain on echocardiogram RVSP less than 35 normal , pulse oximetry 96- 97% on room on 3 L is a cannula. Review of Systems Constitutional: Reports as per HPI, Reports anorexia, Reports fatigue, Reports sweats Ears: left: decreased hearing, earache Ears, nose, mouth and throat: Reports as per HPI, Reports neck fullness/pressure, Denies ant. neck pain, Denies bleeding gums, Denies dental pain, Denies dysphagia, Denies epistaxis, Denies headache, Denies hoarseness, Denies mouth pain, Denies nasal congestion, Denies nasal discharge, Denies neck lump, Denies nose pain, Denies odynophagia, Denies post-nasal drip, Denies sinus pain, Denies sinus pressure, Denies swelling in mouth, Denies swelling in throat , Denies sore throat, Denies vertigo, Denies voice changes Cardiovascular: Reports as per HPI, Denies chest pain, Denies claudication, Denies decreased exercise tolerance, Denies dyspnea on exertion, Denies edema, Denies high blood pressure, Denies irregular heart beat, Denies leg edema, Denies lightheadedness, Denies orthopnea, Denies palpitations, Denies paroxysmal nocturnal dyspnea, Denies phlebitis, Denies rapid heart beat, Denies shortness of breath, Denies syncope Respiratory: Reports as per HPI, Denies congestion, Denies cough, Denies cough with sputum, Denies dyspnea, Denies excessive sputum, Denies hemoptysis, Denies home oxygen, Denies pain, Denies pain on inspiration, Denies pleurisy, Denies respiratory infections, Denies sleep apnea, Denies snoring, Denies wheezing Gastrointestinal: Reports as per HPI, Denies abdominal pain, Denies belching, Denies bloating, Denies BRBPR, Denies change in bowel habits, Denies coffee ground emesis, Denies constipation, Denies diarrhea, Denies dyspepsia, Denies early satiety, Denies excessive gas, Denies heartburn, Denies hematemesis, Denies hematochezia, Denies indigestion, Denies jaundice, Denies lactose intolerance, Denies loss of appetite, Denies melena, Denies nausea, Denies vomiting Genitourinary: Reports as per HPI Menstruation: Reports as per HPI, Reports postmenopausal Musculoskeletal: Reports as per HPI, Reports gait dysfunction, Reports limitation of motion, Reports shooting leg pain Integumentary: Reports as per HPI, Denies acne, Denies boils, Denies brittle nails, Denies change in hair/nails, Denies color changes, Denies darkening of skin, Denies depigmentation, Denies dryness, Denies foot/leg ulcers, Denies growths, Denies hirsutism, Denies lesions, Denies onychomycosis, Denies pruritus, Denies rash, Denies sores, Denies striae, Denies unusual bruising, Denies wounds Neurological: Reports as per HPI, Denies aphasia, Denies ataxia, Denies balance difficulties, Denies burning pain, Denies change in mentation, Denies change in smell/taste, Denies change in speech, Denies confusion, Denies convulsions, Denies double vision, Denies gait dysfunction, Denies head injury, Denies headaches, Denies hearing difficulties, Denies lack of coordination, Denies loss of vision, Denies memory loss, Denies migraines, Denies motor disturbance, Denies numbness, Denies paralysis, Denies paresthesias, Denies seizures, Denies sensory deficit, Denies spasticity, Denies syncope, Denies tic, Denies tingling, Denies transient paralysis, Denies tremors, Denies vertigo, Denies weakness, Denies visual changes Psychiatric: Reports as per HPI Endocrine: Reports as per HPI Hematologic/Lymphatic: Reports as per HPI Allergic/Immunologic: Reports as per HPI, Denies allergic rhinitis, Denies anaphylaxis, Denies angioedema, Denies gluten intolerance, Denies persistent infections, Denies seasonal allergies, Denies urticaria, Denies wheezing Objective - Vital Signs Vital signs: Vital Signs Temp 97.7 F 05/09/19 00:18 Pulse 86 05/09/19 00:18 Resp 20 05/09/19 04:12 BP 135/79 05/09/19 00:18 Pulse Ox 96 05/09/19 00:18 Intake & Output 05/08/19 05/09/19 05/09/19 18:59 06:59 18:59 Intake Total 164.324 0 Output Total 525 2100 Balance -360.676 -2100 Weight 87 kg Intake: Intake, IV Titration 164.324 0 Amount Heparin Sod,Pork in 0.45% 164.324 0 NaCl 25,000 unit In 0.45 % NaCl 1 250ml.bag @ 18 UNITS/KG/HR 13.962 mls/hr IV .[id number] [facility] Rx#: [id number] Oral 0 Output: Urine 525 2100 Other: Voiding Method Indwelling Catheter Indwelling Catheter # Bowel Movements 1 - Constitutional General appearance: Present: cooperative, no acute distress, obese - EENT Eyes: Present: anicteric sclerae, EOMI, PERRLA, dentition normal ENT: Present: NA/AT, normal oropharynx - Neck Neck: Present: normal ROM - Respiratory Respiratory: bilateral: CTA, negative: diminished, dullness - Cardiovascular Rhythm: regular Heart sounds: normal: S1, S2 Abnormal Heart Sounds: Absent: systolic murmur, diastolic murmur, rub, S3 Gallop, S4 Gallop, click, other - Gastrointestinal General gastrointestinal: Present: normal bowel sounds, soft - Integumentary Integumentary: Present: normal - Neurologic Neurologic: Present: CNII-XII intact - Musculoskeletal Musculoskeletal: Present: left sided weakness - Psychiatric Psychiatric: Present: A&O x's 3 - Labs CBC & Chem 7: 05/09/19 05:51 05/09/19 05:51 Labs: Abnormal Lab Results - Last 24 Hours (Table) 05/08/19 05/09/19 05/09/19 Range/Units 17:51 01:56 05:51 WBC 11.2 H (3.8-10.6) k/uL RBC 3.54 L (3.80-5.40) m/uL Hgb 10.7 L (11.4-16.0) gm/dL Hct 33.3 L (34.0-46.0) % RDW 16.9 H (11.5-15.5) % Neutrophils # 10.1 H (1.3-7.7) k/uL Lymphocytes # 0.3 L (1.0-4.8) k/uL APTT 92.4 H 66.8 H (22.0-30.0) sec Chloride (98-107) mmol/L BUN (7-17) mg/dL Creatinine (0.52-1.04) mg/dL Glucose (74-99) mg/dL 05/09/19 Range/Units 05:51 WBC (3.8-10.6) k/uL RBC (3.80-5.40) m/uL Hgb (11.4-16.0) gm/dL Hct (34.0-46.0) % RDW (11.5-15.5) % Neutrophils # (1.3-7.7) k/uL Lymphocytes # (1.0-4.8) k/uL APTT (22.0-30.0) sec Chloride 113 H (98-107) mmol/L BUN 18 H (7-17) mg/dL Creatinine 1.08 H (0.52-1.04) mg/dL Glucose 120 H (74-99) mg/dL Assessment and Plan Plan: 1. acute lyly PE and lyly dvt , with known history of malignancy, will need life long anticoagulation, heparin iv for now, then can switch to oral direct anticoag/ facor xa inhibitor. will consult dr abbott oncology. echo cardiogram, venous dopplers. in view of previous plavix use withh discontinue this in favor on the direct anticoagulants 2. left face numbness and left uppper extremitiy weakness, ruled out acute cva TIA suspected but has residual left hemiparesis, mri brain failed to reveal ischemic or embolic event 3. old hemiparesis from previous cva , residual mhemiparesis left side, refusing statins/ zetia mentioning she is allergic to this. will discuss PSK-9 inhibitors like praluent or repatha however these drugs are very costly 4. uncontrolled hyperlipidemia, see above refused statin 5. parkinsons vs benign familial tremors, significnt tremors on sineme t. has hx behavior disturbance in past must be cautious on titration, can cause increase in psychosis. cont kepra 500 bid 6 Chronic depression, anxiety and panic attacks. Sitter at bedside, will continue with BuSpar 15 mg twice a day, fluoxetine 20 mg and trazodone 100 mg 7 Insomnia: Trazodone 100 mg at at bedtime 8. Chronic Sacral ulcer: Follows up in wound center on a regular basis with jesus henriquezient refused to see Dr. Montejo as pt does not want any debridement , refused infectious disease consultation for osteomyelitis, will need spect ct imaging sacrum has pending CAT scan of the abdomen and pelvis, ordered by oncology 9. 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 Chronic pain syndrome. Continue with Percocet 11. Hypertension. Atenolol 12.5 mg twice a day 12. Seizure. Continue home medication of Keppra 500 mg twice a day 13 Hypothyroidism. Continue with levothyroxine 25 g daily 14. TMJ, recent eustachean tube placement functional in place DVT/GI prophylaxis: nursing home anticoagulation with this new pe DVT; Protonix discharge planning return to [facility] [place]
[2019-05-09] MEDS: HEPARIN SOD,PORK IN 0.45% NACL 25,000 UNIT in 0.45% NACL 1 250ML.BAG IV SCH (17:26)
[2019-05-09] MEDS: CLOPIDOGREL 75 MG TAB PO SCH ×2 (17:33→17:34)
--- NOTE | 2019-05-09 19:34 | P.PN ---
Subjective Progress Note Date: 05/09/19 Principal diagnosis: PE MRI of the brain was negative Objective - Vital Signs Vital signs: Vital Signs Temp 97.4 F L 05/09/19 17:00 Pulse 76 05/09/19 16:00 Resp 16 05/09/19 17:00 BP 133/53 05/09/19 16:00 Pulse Ox 96 05/09/19 17:00 Intake & Output 05/09/19 05/09/19 05/10/19 06:59 18:59 06:59 Intake Total 0 290.7 Output Total 2100 500 Balance -2100 -209.3 Weight 87 kg Intake: Intake, IV Titration 0 172.7 Amount Heparin Sod,Pork in 0.45% 0 172.7 NaCl 25,000 unit In 0.45 % NaCl 1 250ml.bag @ 18 UNITS/KG/HR 13.962 mls/hr IV .[id number] [facility] Rx#: [id number] Oral 118 Output: Urine 2100 500 Other: Voiding Method Indwelling Catheter Indwelling Catheter - Exam Gen.: In no acute distress. HEENT: No conjunctival pallor or scleral icterus. Mucosa moist. Neck: Supple. Lungs: CTA-B bilaterally. Heart: Regular rate. Trace bilateral lower extremity pitting edema. Abdomen: Soft, nontender. MSK: 4/4 strength in all 4 extremities. Neuro: Alert and oriented 3. Skin: No jaundice Psych: Appropriate affect. - Labs CBC & Chem 7: 05/09/19 05:51 05/09/19 05:51 Labs: Abnormal Lab Results - Last 24 Hours (Table) 05/09/19 05/09/19 05/09/19 Range/Units 01:56 05:51 05:51 WBC 11.2 H (3.8-10.6) k/uL RBC 3.54 L (3.80-5.40) m/uL Hgb 10.7 L (11.4-16.0) gm/dL Hct 33.3 L (34.0-46.0) % RDW 16.9 H (11.5-15.5) % Neutrophils # 10.1 H (1.3-7.7) k/uL Lymphocytes # 0.3 L (1.0-4.8) k/uL APTT 66.8 H (22.0-30.0) sec Chloride 113 H (98-107) mmol/L BUN 18 H (7-17) mg/dL Creatinine 1.08 H (0.52-1.04) mg/dL Glucose 120 H (74-99) mg/dL Assessment and Plan Assessment: 1. PE 2. Bilateral lower extremity DVTs 3. History of rectal cancer, lost to follow-up 4. Mild AK I 5. Mild reactive leukocytosis 6. Mild normocytic anemia 7. Neuropathy Plan: Mrs. Mendoza is a very pleasant 73-year-old female with history of rectal cancer, lost to follow-up, who is here for shortness of breath, found to have PE. She was started on heparin drip and underwent lower extremity Dopplers which revealed bilateral lower extremity DVT. Seen by neurology for generalized weakness and neuropathy. MRI ordered, unremarkable. She also has mild leukocy tosis today and mild anemia, likely reactive leukocytosis and dilutional anemia. Has been on IV heparin, continue. Ideally would like to restage her with a CT of the chest abdomen and pelvis with contrast however we'll hold off for now due to slightly increased creatinine from baseline as well as recent CT/PE. 1 patient stable and ready for discharge we'll need anticoagulation DOAC. She will likely need long-term anticoagulation as this is provoked due to malignancy and immobility however this does not seem to be a reversible provoking factor.
[2019-05-09] MEDS ORDERED: predniSONE 50 MG TAB PO ONE (21:00)
[2019-05-09] MEDS: traZODone HCL 100 MG TAB PO SCH (21:25)
[2019-05-09] MEDS: APIXABAN 5 MG TAB PO SCH (21:25)
[2019-05-09] MEDS: MELATONIN 5 MG TABLET PO SCH (21:25)
[2019-05-10] MEDS ORDERED: predniSONE 50 MG TAB PO ONE ×2 (03:00→09:00)
[2019-05-10] MEDS: LEVOTHYROXINE 25 MCG TAB PO SCH (05:53)
[2019-05-10] MEDS: oxyCODONE-APAP 5-325MG 1 EACH TAB PO SCH ×3 (05:53→20:42)
[2019-05-10] MEDS ORDERED: BARIUM SULFATE 450 ML ORAL.SUSP BOTTLE PO ONE ×2 (06:00→09:00)
[2019-05-10 06:54] LABS: Anisocytosis Slight; Basophils % (A) 0 %; Eosinophils % (A) 0 %; HCT 34.1 % (34.0-46.0); HGB 10.8 gm/dL (11.4-16.0); Hypochromasia Slight; Lymphocytes # (A) 0.4 k/uL (1.0-4.8); Lymphocytes % (A) 4 %; MCH 29.5 pg (25.0-35.0); MCHC 31.6 g/dL (31.0-37.0); MCV 93.2 fL (80.0-100.0); Mean Platelet Volume 8.3; Monocytes # (A) 0.3 k/uL (0-1.0); Monocytes % (A) 3 %; Neutrophils # (A) 8.6 k/uL (1.3-7.7); Neutrophils % (A) 92 %; Platelet Count 388 k/uL (150-450); RBC 3.66 m/uL (3.80-5.40); WBC 9.3 k/uL (3.8-10.6)
[2019-05-10 07:24] LABS: Calcium 9.4 mg/dL (8.4-10.2); Potassium 3.8 mmol/L (3.5-5.1)
[2019-05-10] MEDS ORDERED: diphenhydrAMINE 50 MG CAP PO ONE (09:00)
[2019-05-10] MEDS: SYMBICORT 80-4.5 MCG INHALER INHALATION SCH ×2 (09:37→20:55)
[2019-05-10] MEDS: CARBIDOPA-LEVODOPA 10-100 MG 1 EACH TAB PO SCH ×3 (10:47→20:42)
[2019-05-10] MEDS: ATENOLOL 25 MG TAB PO SCH ×2 (10:47→20:42)
[2019-05-10] MEDS: PANTOPRAZOLE 40 MG TABLET PO SCH (10:47)
[2019-05-10] MEDS: APIXABAN 5 MG TAB PO SCH ×2 (10:47→20:42)
[2019-05-10] MEDS: FOLIC ACID 1 MG TAB PO SCH (10:47)
[2019-05-10] MEDS: levETIRAcetam 500 MG TAB PO SCH ×2 (10:48→20:42)
[2019-05-10] MEDS: FAMOTIDINE 20 MG TAB PO SCH (10:48)
[2019-05-10] MEDS: TOFACITINIB CITRATE 11 MG PO SCH (10:48)
[2019-05-10] MEDS: LORATADINE 10 MG TAB PO SCH (10:48)
[2019-05-10] MEDS: BACLOFEN 10 MG TAB PO SCH ×3 (10:48→20:42)
[2019-05-10] MEDS: FLUoxetine HCL 20 MG CAP PO SCH (10:48)
[2019-05-10] MEDS: FLUTICASONE 50MCG/SPRAY NASAL 16GM EA NOSTRIL SCH ×2 (10:49→20:58)
[2019-05-10] MEDS: ACETAMINOPHEN TAB 325 MG TAB PO PRN (10:52)
--- NOTE | 2019-05-10 10:56 | CT ---
EXAMINATION TYPE: CT abdomen pelvis w con DATE OF EXAM: 05/10/2019 COMPARISON: None HISTORY: HX of rectal cancer. NO F/U for [address] DLP: 1367.5 mGycm Automated exposure control for dose reduction was used. CONTRAST: CT scan of the abdomen pelvis is performed with IV Contrast, patient injected with 100 ml mL of Isovu e 300. FINDINGS- LUNG BASES-basilar subsegmental consolidation noted is typical of atelectasis. LIVER/GB-2 mm hypodensity within the liver axial image 19 too small to characterize. Low attenuation near the ligamentum teres suggestive of fatty localized infiltration small amount of fluid is seen ad jacent lower margin PANCREAS- No gross abnormality is seen. SPLEEN- No gross abnormality is seen. ADRENALS- No gross abnormality is seen. KIDNEYS/BLADDER- no hydronephrosis nephrolithiasis or renal mass. Renal cortical loss suggest chronic medical renal disease. BOWEL-bowel loops in the pelvis including the rectum or not visualized due to severe artifact from th e patient's hip prostheses. Remaining portions of bowel demonstrate no diagnostic evidence of obstruc tion. Visualized portions of the sigmoid colon demonstrate occasional diverticulosis wall thickening which could be related to incomplete distention. Other etiologies not excluded correlate with direct visualization as clinically warranted. Stomach is nondistended and limited evaluation LYMPH NODES- No greater than 1cm abdominal or pelvic lymph nodes areappreciated. OSSEOUS STRUCTURES-scoliosis with postsurgical changes and multilevel severe degenerative disc diseas e noted. Sclerotic changes of L3 and L2 are nonspecific.. OTHER- the pelvis is completely obscured by severe metallic artifact from patient's hip prostheses a nd therefore assessment for mass, adenopathy or abnormalities of the bowel nondiagnostic in the regio n. There is suggestion of a Arceo catheter air within the bladder. Small amount of free fluid is seen within the anterior pelvis. There is a single 6 mm nodular density inferior and lateral to the spleen which could represent a sma ll accessory spleen. Six-month follow-up is recommended to confirm stability exclude other etiologies . 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 IMPRESSION- 1. Nondiagnostic assessment of the pelvis due to severe artifact from patient's bilateral hip prosthe ses. This includes the rectal region. 2. Nonspecific wall thickening involving the distal left colon and sigmoid colon most likely in the b asis of incomplete distention. Correlate with direct visualization as clinically warranted. 3. No pathologic adenopathy. There is a 6 mm nodule inferior and lateral to the spleen which could re present a small accessory spleen but is too small to characterize. Six-month follow-up CT scan recomm ended to confirm stability and exclude other etiologies including metastases.
[2019-05-10] MEDS: busPIRone HCl 5 MG TAB PO SCH ×2 (12:55→20:42)
--- NOTE | 2019-05-10 15:47 | P.PN ---
Subjective Progress Note Date: 05/10/19 This is a 73-year-old female one of Dr. Delaney's patient with a known history of colorectal cancer, recurrent UTIs, COPD, depression, chronic decub in the sacral area follows with wound care center at [facility] and hypothyroidism and currently resides at [facility] on the [place] 1 year, and is wheelchair bound.. Patient was recently seen in the emergency department yesterday Secondary to left face numbness, left shoulder numbness, upper extremity numbness, for the past 3 days, accompanied by weakness of the upper extremity, pain in the upper shoulders, posterior back, for the past 3 days. She also has chronic leg swelling for the past 3 months, with pain, patient denies any chest pain or pal pitations, she mentioned this to the nurse, however her neurologic exam was unremarkable to the time, and last night, when she mentioned this to the nurse again, she might be having a CVA, with the left arm weakness, and was subsequently sent to the emergency room for evaluation. We have conflicting data from the emergency room as the emergency room mentions that she woke up with the numbness and weakness, per patient, this has been going on for the past 3 days. Patient has had leg swelling and pain left side, for the past 3 months, no Dopplers were done prior to admission, no new medication changes according to the patient. She is not on any blood thinner anticoagulation, however she had PAD with stents placed several months ago and is on Plavix for it. Patient is very anxious with information today, has refused to be seen by surgeon in the hospital for wound in the sacrum, however at the wound clinic, she is followed by [facility] patient refused to be seen by infectious disease while in the hospital. She has had multiple debridements of the sacrum, and had multiple referrals to plastic surgeon, however this is not amenable to treatment secondary to radiation changes to the skin. 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 Incidentally, the CTA of the chest showed partially visualized upper lobe and segmental partial pulmonary emboli on both sides, additional embolus in the left main pulmonary artery, patient was subsequently admitted secondary to TIA againstCVA, paraneoplastic syndrome as well as acute pulmonary emboli that was incidentally seen in the CT angiogram of the neck. We admitted the patient, with consultation to Dr. Jefferson from neurology, Dr. Abbott from oncology, Dr. Kelley from pulmonary medicine. Patient refused infectious disease consultation, patient was started on iv heparin, irina have requested MRi brain with IAC, doppler lyly lower extremitis, and soon will need spect ct o to be done this admissionf sacrum for osteomyelitis 05/09: Patient is calm and today, he has less pain in the neck area, seen by ENT, tympanostomy tube is in place, they have suggested TMJ as a problem for the left ear left base, MRI brain ruled out CVA,, patient still is refusing statins, has seen by oncology, with recommendations for eliquis, imaging studies are underway for GI cancer evaluation, with a CAT scan, patient would need SPECT CT of the sacrum in a.m. to evaluate for osteomyelitis however CTs underwent also for the abdomen. We will with this results, waiting for creatinine clear currently at 1.08 from 1.18, C4 imaging studies, continue to hydrate. Patient h as tremors, although less will discontinue IV heparin today, and transition to eliquis today, no RV strain on echocardiogram RVSP less than 35 normal , pulse oximetry 96- 97% on room on 3 L is a cannula. 05/10, patient has headache left frontal, left jaw, and left occiput, most likely secondary TMJ, and occipital neuralgia, patient was offered lidocaine for supplemental control, incidentally agreeable to this one. CAT scan imaging abdomen and pelvis, shows artifact changes secondary to hip prosthesis, there is no obstruction, occasional diverticulosis of the sigmoid colon, however direct visualization is warranted, no lymphadenopathy, six-month follow-up recommended to confirm stability. Creatinine is at 1.12, hemoglobin of 10.7 stable, double basic count decreased now to 9.3, C. diff negative requesting SPECT-CT images of the sacrum to evaluate for osteomyelitis, has chronic decubiti, nonhealing wounds Review of Systems Constitutional: Reports as per HPI, Reports anorexia, Reports fatigue, Reports sweats Ears: left: decreased hearing, earache Ears, nose, mouth and throat: Reports as per HPI, Reports neck fullness/pressure, Denies ant. neck pain, Denies bleeding gums, Denies dental pain, Denies dysphagia, Denies epistaxis, Denies headache, Denies hoarseness, Denies mouth pain, Denies nasal congestion, Denies nasal discharge, Denies neck lump, Denies nose pain, Denies odynophagia, Denies post-nasal drip, Denies sinus pain, Denies sinus pressure, Denies swelling in mouth, Denies swelling in throat, Denies sore throat, Denies vertigo, Denies voice changes Cardiovascular: Reports as per HPI, Denies chest pain, Denies claudication, Denies decreased exercise tolerance, Denies dyspnea on exertion, Denies edema, Denies high blood pressure, Denies irregular heart beat, Denies leg edema, Denies lightheadedness, Denies orthopnea, Denies palpitations, Denies paroxysmal nocturnal dyspnea, Denies phlebitis, Denies rapid heart beat, Denies shortness of breath, Denies syncope Respiratory: Reports as per HPI, Denies congestion, Denies cough, Denies cough with sputum, Denies dyspnea, Denies excessive sputum, Denies hemoptysis, Denies home oxygen, Denies pain, Denies pain on inspiration, Denies pleurisy, Denies respiratory infections, Denies sleep apnea, Denies snoring, Denies wheezing Gastrointestinal: Reports as per HPI, Denies abdominal pain, Denies belching, Denies bloating, Denies BRBPR, Denies change in bowel habits, Denies coffee ground emesis, Denies constipation, Denies diarrhea, Denies dyspepsia, Denies early satiety, Denies excessive gas, Denies heartburn, Denies hematemesis, Denies hematochezia, Denies indigestion, Denies jaundice, Denies lactose intolerance, Denies loss of appetite, Denies melena, Denies nausea, Denies vomiting Genitourinary: Reports as per HPI Menstruation: Reports as per HPI, Reports postmenopausal Musculoskeletal: Reports as per HPI, Reports gait dysfunction, Reports limitation of motion, Reports shooting leg pain Integumentary: Reports as per HPI, Denies acne, Denies boils, Denies brittle nails, Denies change in hair/nails, Denies color changes, Denies darkening of skin, Denies depigmentation, Denies dryness, Denies foot/leg ulcers, Denies growths, Denies hirsutism, Denies lesions, Denies onychomycosis, Denies pruritus, Denies rash, Denies sores, Denies striae, Denies unusual bruising, Denies wounds Neurological: Reports as per HPI, Denies aphasia, Denies ataxia, Denies balance difficulties, Denies burning pain, Denies change in mentation, Denies change in smell/taste, Denies change in speech, Denies confusion, Denies convulsions, Denies double vision, Denies gait dysfunction, Denies head injury, Denies headaches, Denies hearing difficulties, Denies lack of coordination, Denies loss of vision, Denies memory loss, Denies migraines, Denies motor disturbance, Denies numbness, Denies paralysis, Denies paresthesias, Denies seizures, Denies sensory deficit, Denies spasticity, Denies syncope, Denies tic, Denies tingling, Denies transient paralysis, Denies tremors, Denies vertigo, Denies weakness, Denies visual changes Psychiatric: Reports as per HPI Endocrine: Reports as per HPI Hematologic/Lymphatic: Reports as per HPI Allergic/Immunologic: Reports as per HPI, Denies allergic rhinitis, Denies anaphylaxis, Denies angioedema, Denies gluten intolerance, Denies persistent infections, Denies seasonal allergies, Denies urticaria, Denies wheezing Objective - Vital Signs Vital signs: Vital Signs Temp 97.5 F L 05/10/19 12:00 Pulse 68 05/10/19 12:00 Resp 18 05/10/19 12:00 BP 185/88 05/10/19 12:00 Pulse Ox 95 05/10/19 12:00 Intake & Output 05/09/19 05/10/19 05/10/19 18:59 06:59 18:59 Intake Total 290.7 30.895 Output Total 500 950 Balance -209.3 -919.105 Weight 87.5 kg Intake: Intake, IV Titration 172.7 30.895 Amount Heparin Sod,Pork in 0.45% 172.7 30.895 NaCl 25,000 unit In 0.45 % NaCl 1 250ml.bag @ 18 UNITS/KG/HR 13.962 mls/hr IV .[id number] [facility] Rx#: [id number] Oral 118 Output: Urine 500 950 Other: Voiding Method Indwelling Catheter Indwelling Catheter Indwelling Catheter # Bowel Movements 1 1 - Constitutional General appearance: Present: cooperative, no acute distress, obese - EENT Eyes: Present: anicteric sclerae, EOMI, PERRLA, dentition normal ENT: Present: NA/AT, normal oropharynx - Respiratory Respiratory: bilateral: CTA, negative: diminished, dullness, rales, rhonchi, wheezing - Cardiovascular Rhythm: regular Heart sounds: normal: S1, S2 Abnormal Heart Sounds: Absent: systolic murmur, diastolic murmur, rub, S3 Gallop, S4 Gallop, click, other - Gastrointestinal General gastrointestinal: Present: normal bowel sounds, soft - Integumentary Integumentary: Present: decreased turgor, normal - Neurologic Neurologic: Present: CNII-XII intact, focal deficits - Labs CBC & Chem 7: 05/10/19 06:02 05/10/19 06:02 Labs: Abnormal Lab Results - Last 24 Hours (Table) 05/10/19 05/10/19 Range/Units 06:02 06:02 RBC 3.66 L (3.80-5.40) m/uL Hgb 10.8 L (11.4-16.0) gm/dL RDW 17.0 H (11.5-15.5) % Neutrophils # 8.6 H (1.3-7.7) k/uL Lymphocytes # 0.4 L (1.0-4.8) k/uL Chloride 109 H (98-107) mmol/L Creatinine 1.12 H (0.52-1.04) mg/dL Glucose 144 H (74-99) mg/dL Assessment and Plan Plan: 1. acute lyly PE and lyly dvt , with known history of malignancy, will need life long anticoagulation, heparin iv for now, then can switch to oral direct anticoag/ facor xa inhibitor. will consult dr abbott oncology. echo cardiogram, venous dopplers. in view of previous plavix use withh discontinue this in favor on the direct anticoagulants 2. left face numbness and left uppper extremitiy weakness, ruled out acute cva TIA suspected but has residual left hemiparesis, mri brain failed to reveal is chemic or embolic event 3. old hemiparesis from previous cva , residual mhemiparesis left side, refusing statins/ zetia mentioning she is allergic to this. will discuss PSK-9 inhibitors like praluent or repatha however these drugs are very costly 4. uncontrolled hyperlipidemia, see above refused statin 5. parkinsons vs benign familial tremors, significnt tremors on sineme t. has hx behavior disturbance in past must be cautious on titration, can cause increase in psychosis. cont kepra 500 bid 6 Chronic depression, anxiety and panic attacks. Sitter at bedside, will continue with BuSpar 15 mg twice a day, fluoxetine 20 mg and trazodone 100 mg 7 Insomnia: Trazodone 100 mg at at bedtime 8. Chronic Sacral ulcer: Follows up in wound center on a regular basis with jesus henriquezient refused to see Dr. Montejo as pt does not want any debridement , refused infectious disease consultation for osteomyelitis, will need spect ct imaging sacrum has pending CAT scan of the abdomen and pelvis, ordered by oncology 9. 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 Chronic pain syndrome. Continue with Percocet 11. Hypertension. Atenolol 12.5 mg twice a day 12. Seizure. Continue home medication of Keppra 500 mg twice a day 13 Hypothyroidism. Continue with levothyroxine 25 g daily 14. TMJ, recent eustachean tube placement functional in place DVT/GI prophylaxis: retirement anticoagulation with this new pe DVT; Protonix discharge planning return to [facility] on [facility] [address] in 24-48 hrs depenmding on sacral spect ct
[2019-05-10] MEDS: ALPRAZolam 0.25 MG TAB PO SCH ×2 (16:14→20:42)
[2019-05-10] MEDS: MELATONIN 5 MG TABLET PO SCH (20:41)
[2019-05-10] MEDS: traZODone HCL 100 MG TAB PO SCH (20:41)
[2019-05-11] MEDS: oxyCODONE-APAP 5-325MG 1 EACH TAB PO SCH ×3 (05:14→20:43)
[2019-05-11] MEDS: LEVOTHYROXINE 25 MCG TAB PO SCH (05:14)
[2019-05-11 07:53] LABS: Calcium 9.3 mg/dL (8.4-10.2); Potassium 3.3 mmol/L (3.5-5.1)
[2019-05-11] MEDS: SYMBICORT 80-4.5 MCG INHALER INHALATION SCH ×2 (08:30→20:32)
[2019-05-11] MEDS: SODIUM CHLORIDE 0.9% 1,000 ML IV SCH ×2 (09:16→20:59)
[2019-05-11] MEDS: BACLOFEN 10 MG TAB PO SCH ×3 (09:18→20:44)
[2019-05-11] MEDS: PANTOPRAZOLE 40 MG TABLET PO SCH (09:18)
[2019-05-11] MEDS: LORATADINE 10 MG TAB PO SCH (09:18)
[2019-05-11] MEDS: ATENOLOL 25 MG TAB PO SCH ×2 (09:18→20:43)
[2019-05-11] MEDS: FOLIC ACID 1 MG TAB PO SCH (09:18)
[2019-05-11] MEDS: levETIRAcetam 500 MG TAB PO SCH ×2 (09:18→20:44)
[2019-05-11] MEDS: busPIRone HCl 5 MG TAB PO SCH ×2 (09:18→20:43)
[2019-05-11] MEDS: FLUoxetine HCL 20 MG CAP PO SCH (09:18)
[2019-05-11] MEDS: APIXABAN 5 MG TAB PO SCH ×2 (09:18→20:43)
[2019-05-11] MEDS: FAMOTIDINE 20 MG TAB PO SCH (09:18)
[2019-05-11] MEDS: FLUTICASONE 50MCG/SPRAY NASAL 16GM EA NOSTRIL SCH ×2 (09:19→20:45)
[2019-05-11] MEDS: CARBIDOPA-LEVODOPA 10-100 MG 1 EACH TAB PO SCH ×3 (09:19→20:44)
[2019-05-11] MEDS: TOFACITINIB CITRATE 11 MG PO SCH (09:19)
[2019-05-11] MEDS: ACETAMINOPHEN TAB 325 MG TAB PO PRN (12:42)
[2019-05-11] MEDS: ALPRAZolam 0.25 MG TAB PO SCH ×2 (12:43→20:44)
--- NOTE | 2019-05-11 14:11 | P.PN ---
Subjective Progress Note Date: 05/11/19 This is a 73-year-old female one of Dr. Delaney's patient with a known history of colorectal cancer, recurrent UTIs, COPD, depression, chronic decub in the sacral area follows with wound care center at [facility] and hypothyroidism and currently resides at [facility] on the [address] x 1 year, and is wheelchair bound.. Patient was recently seen in the emergency department y for left face numbness, left shoulder numbness, upper extremity numbness, for the past 3 days, accompanied by weakness of the upper extremity, pain in the upper shoulders, posterior back, for the past 3 days. Patient has had leg swelling and pain left side, for the past 3 months. She had PAD with stents placed several months ago and is on Plavix for it. Patient also sees nurse practitioner Mary Ann, for wound in the sacrum at the wound clinic,, refused to be seen by infectious disease while in the hospital. She has had multiple debridements of the sacrum, and had multiple referrals to plastic surgeon, however this is not amenable to treatment secondary to radiation changes to the skin. 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 Incidentally, the CTA of the chest showed partially visualized upper lobe and segmental partial pulmonary emboli on both sides, additional embolus in the left main pulmonary artery, patient was subsequently admitted secondary to TIA againstCVA, paraneoplastic syndrome as well as acute pulmonary emboli that was incidentally seen in the CT angiogram of the neck. Multiple consultation to Dr. Jefferson from neurology, Dr. Abbott from oncology, Dr. Kelley from pulmonary medicine. Patient refused infectious disease consultation, patient was started on iv heparin, irina have requested MRi brain with IAC, doppler lyly lower extremitis, and soon will need spect ct o to be done this admissionf sacrum for osteomyelitis 05/09: Seen by ENT, tympanostomy tube is in place, they have suggested TMJ as a problem for the left ear left base, MRI brain ruled out CVA,, patient still is refusing statins, has seen by oncology, with recommendations for eliquis, imaging studies are underway for GI cancer evaluation, with a CAT scan, patient would need SPECT CT of the sacrum in a.m. to evaluate for osteomyelitis however CTs underwent also for the abdomen. We will with this results, waiting for c reatinine clear currently at 1.08 from 1.18, C4 imaging studies, continue to hydrate. Patient has tremors, although less will discontinue IV heparin today, and transition to eliquis today, no RV strain on echocardiogram RVSP less than 35 normal , pulse oximetry 96- 97% on room on 3 L is a cannula. 05/10, patient has headache left frontal, left jaw, and left occiput, most likely secondary TMJ, and occipital neuralgia, patient was offered lidocaine for supplemental control, incidentally agreeable to this one. CAT scan imaging abdomen and pelvis, shows artifact changes secondary to hip prosthesis, there is no obstruction, occasional diverticulosis of the sigmoid colon, however direct visualization is warranted, no lymphadenopathy, six-month follow-up recommended to confirm stability. Creatinine is at 1.12, hemoglobin of 10.7 stable, double basic count decreased now to 9.3, C. diff negative requesting SPECT-CT images of the sacrum to evaluate for osteomyelitis, has chronic decubiti, nonhealing wounds 05/11 patient examined at bedside complaining of headache on the left side and jaw pain. The seen by ENT yesterday and was told to have TMJ dislocation for which patient would need to have her dentures checked. Patient has not been seen by wound care nurse here. Bone scan ordered results pending. Vitals are stable. Patient's numbness in the upper and lower extremity is still persistent on the left. Patient is had multiple back surgeries and is currently bedbound. She has foot drop on the left and has minimal motor power in the left limb which is present from the previous CVA. On assessment of lab patient has a hemoglobin of 10 and a creatinine 1.18 and potassium of 3.3 status post 20 meq of potassium Review Constitutional: Denies chills, Denies fever, endorses lethargy Eyes: denies decreased vision, denies diplopia, denies discharge, denies pain Ears: deny: decreased hearing Ears, nose, mouth and throat: Denies dental pain, Denies headache, Denies nasal discharge, Denies nose pain Cardiovascular: Denies chest pain, Denies decreased exercise tolerance, Denies edema, Denies high blood pressure, Denies irregular heart beat, Denies palpitations, Denies paroxysmal nocturnal dyspnea, Denies rapid heart beat, Denies shortness of breath Respiratory: Denies congestion, Denies cough, Denies cough with sputum, Denies dyspnea, Denies home oxygen, Denies wheezing Gastrointestinal: Denies abdominal pain, Denies change in bowel habits, Denies coffee ground emesis, Denies early satiety, Denies excessive gas, Denies heartburn, Denies hematemesis, Denies hematochezia, Denies loss of appetite, Denies nausea, Denies vomiting Genitourinary: Denies dysuria, Denies flank pain, Denies kidney stones, Denies menorrhagia, Denies urgency, Denies urinary frequency Musculoskeletal: endorses gait dysfunction, endorses limitation of motion, Denies morning stiffness, Denies muscle cramps Integumentary: Denies rash, Denies wounds, Denies brittle nails, Denies change in hair/nails, Denies darkening of skin Neurological: endoerses balance difficulties, Denies change in speech, Denies double vision,endorses gait dysfunction, Denies loss of vision, endorses weakness and numbness left , left LE paralysis, Denies paresthesias, Denies seizures Psychiatric: Denies anxiety, Denies depression Endocrine: Denies excessive sweating, Denies excessive thirst, Denies high blood sugars, Denies palpitations Hematologic/Lymphatic: Denies easy bruising, Denies lymphadenopathy Objective - Vital Signs Vital signs: Vital Signs Temp 97.5 F L 05/11/19 07:53 Pulse 68 05/11/19 07:53 Resp 16 05/11/19 07:53 BP 110/56 05/11/19 07:53 Pulse Ox 94 L 05/11/19 07:53 Intake & Output 05/10/19 05/11/19 05/11/19 18:59 06:59 18:59 Intake Total 472 120 Output Total 1600 600 Balance -1128 -480 Weight 85 kg Intake: Oral 472 120 Output: Urine 1600 600 Other: Voiding Method Indwelling Catheter Indwelling Catheter # Voids 0 # Bowel Movements 1 - Exam - Constitutional General appearance: Present: cooperative, no acute distress, left paresthesias and face numbness - EENT Eyes: Present: anicteric sclerae, EOMI, PERRLA, dentition normal ENT: Present: NA/AT, normal oropharynx - Respiratory Respiratory: bilateral: CTA, negative: diminished, dullness, rales, rhonchi, w heezing - Cardiovascular Rhythm: regular Heart sounds: normal: S1, S2 Abnormal Heart Sounds: Absent: systolic murmur, diastolic murmur, rub - Gastrointestinal General gastrointestinal: Present: normal bowel sounds, soft - Integumentary Integumentary: Present: decreased turgor, normal , sacral wound currently dressed - Neurologic Neurologic: Present: CNII-XII intact, left lower extremity 3/5 power, numbness left lower extremity and left upper extremity - Labs CBC & Chem 7: 05/10/19 06:02 05/11/19 06:25 Labs: Abnormal Lab Results - Last 24 Hours (Table) 05/11/19 Range/Units 06:25 Potassium 3.3 L (3.5-5.1) mmol/L BUN 18 H (7-17) mg/dL Creatinine 1.18 H (0.52-1.04) mg/dL Glucose 100 H (74-99) mg/dL Assessment and Plan Plan: 1. acute lyly PE and lyly dvt , with known history of malignancy, will need life long anticoagulation, on eliquis 10 mg twice a day dr abbott oncology. echo cardiogram negative for blood clot , venous dopplers positive for bilateral DVT in the right popliteal vein and right proximal calf vein and left mid femoral vein to left proximal calf 2. left face numbness and left uppper extremitiy weakness, ruled out acute cva ,has residual left hemiparesis, mri brain failed to reveal ischemic or embolic event 3. old hemiparesis from previous cva , residual hemiparesis left side, refusing statins/ zetia mentioning she is allergic to this. will discuss PSK-9 inhibitors like praluent or repatha however these drugs are very costly 4. uncontrolled hyperlipidemia, see above refused statin 5. parkinsons vs benign familial tremors, significnt tremors on sineme t. has hx behavior disturbance in past must be cautious on titration, can cause increase in psychosis. cont kepra 500 bid 6 Chronic depression, anxiety and panic attacks. Sitter at bedside, will continue with BuSpar 15 mg twice a day, fluoxetine 20 mg and trazodone 100 mg 7 Insomnia: Trazodone 100 mg at at bedtime 8. Chronic Sacral ulcer: Follows up in wound center on a regular basis with jesus henriquezient refused to see Dr. Montejo as pt does not want any debridement , refused infectious disease consultation for osteomyelitis, three- phase bone scan negative for osteomyelitis 9. 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 Chronic pain syndrome. Continue with Percocet 11. Hypertension. Atenolol 12.5 mg twice a day 12. Seizure. Continue home medication of Keppra 500 mg twice a day 13 Hypothyroidism. Continue with levothyroxine 25 g daily 14. Left otalgia secondary to TMJ, recent eustachean tube placement functional in place DVT/GI prophylaxis: correction anticoagulation with this new pe DVT; Protonix discharge planning return to [facility] on the [address] tomorrow
--- NOTE | 2019-05-11 16:22 | NM ---
EXAMINATION TYPE: NM bone 3 phase DATE OF EXAM: 05/11/2019 COMPARISON: CT abdomen and pelvis from yesterday HISTORY: History of rectal cancer with sacral decubitus ulcer rule out acute osteomyelitis. Triple phase bone scintigraphy was performed following the injection of 25.7 mCi Tc 99m MDP. Immedia te images and 5.5 hours post injection images acquired. Imaging is performed of the pelvis in multipl e projections with additional delayed phase whole body images in anterior and posterior projections. FINDINGS: Arterial and soft tissue phase images show increased radiotracer uptake involving lower sacrum or chaya cyx. Present with delayed phase images show no suspicious increased radiotracer uptake at this level to suggest acute osteomyelitis. Excretion in poorly distended bladder anteriorly is noted with Arceo catheter extension inferiorly identified. 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 There is scoliotic curvature and degenerative change in the lumbar spine. Whole body image s show no suspicious radiotracer uptake to suggest metastatic disease to the bone. IMPRESSION: No scintigraphic evidence of three-phase radiotracer uptake to the lower sacrum/coccyx to suggest acu te osteomyelitis involvement at this level.
--- NOTE | 2019-05-11 16:40 | P.PN ---
Subjective Progress Note Date: 05/11/19 Principal diagnosis: 73-year-old female patient of Dr. Delaney, chronically bedbound, resides at [facility], has chronic sacral wound stage IV, with wound cultures positive for MRSA, coronary artery disease, chronic congestive heart failure, COPD, previous history of CVA, hypertension, hyperlipidemia, chronic kidney disease, rheumatoid arthritis, seizure disorder hypothyroidism, who was brought into the emergency department per EMS on 05/07/2019 for evaluation of left facial numbness, and left arm numbness for 2 days. Patient states she had recently had ear tubes put in for ear infection by Dr. Billings, and the ear tube on the right side had fallen out, however the left side ear tube has not. She has been having increasing pain in her left ear but denies any drainage. She is also having some sinus pressure and pain over left until and left maxilla ry sinuses. No obvious facial asymmetry, her left expansion joint builder is weaker than the right. She also had some headaches, nausea. She does admit to having some shortness of breath and discomfort on her left breast area worsened with deep inspiration and coughing. Denies any hemoptysis. Does admit to some pain and swelling in her legs. In the emergency department brain CT was completed showing stable mild generalized atrophy and changes of chronic small vessel ischemic disease no acute intracranial abnormality. Chest x-ray showed central interstitial densities, or could reflect pulmonary arterial hypertension. CT brain angiography showed patent vertebral and basilar arteries, scattered mild atherosclerotic calcifications within the carotid siphons with both internal carotid arteries patent, no aneurysmal changes, and the remainder of the anterior-posterior circulations were patent, however there were incidental finding of partially visualized bilateral pulmonary emboli involving the right a nd left upper lobar and segmental branches and additional central embolus involving the left main pulmonary artery. Patient was started on heparin for anticoagulation, been hemodynamically stable, she is on 3 L of supplemental oxygen, and her pulse ox is 93%. And we are consulted for acute bilateral pulmonary emboli On 05/11/2019 patient seen in follow-up on selective care unit. She is awake a nd alert, in no acute distress, on 2 L of oxygen her pulse ox is 95%, no complaints of worsening shortness of breath, vital signs are stable, lung sounds are clear, diminished at the bases. Patient has been started on Eliquis for anticoagulation for bilateral pulmonary embolisms and lower extremity DVTs. Patient is likely to require lifelong anticoagulation in view of her chronic immobility. Echocardiogram was completed showing preserved left ventricle systolic function with an EF of 55-60%, and no sign of right ventricular strain Objective - Vital Signs Vital signs: Vital Signs Temp 97.5 F L 05/11/19 07:53 Pulse 70 05/11/19 12:00 Resp 18 05/11/19 12:00 BP 166/77 05/11/19 12:00 Pulse Ox 95 05/11/19 12:00 Intake & Output 05/10/19 05/11/19 05/11/19 18:59 06:59 18:59 Intake Total 472 120 Output Total 1600 600 Balance -1128 -480 Weight 85 kg Intake: Oral 472 120 Output: Urine 1600 600 Other: Voiding Method Indwelling Catheter Indwelling Catheter Indwelling Catheter # Voids 0 # Bowel Movements 1 - Exam GENERAL EXAM: Alert, very pleasant, 73-year-old white female, chronically bedbound, with no obvious facial asymmetry, on 3 L of oxygen, with a pulse ox of 93% comfortable in no apparent distress. HEAD: Normocephalic/atraumatic. EYES: Normal reaction of pupils, equal size. Conjunctiva pink, sclera white. NOSE: Clear with pink turbinates. THROAT: No erythema or exudates. NECK: No masses, no JVD, no thyroid enlargement, no adenopathy. CHEST: No chest wall deformity. Symmetrical expansion. LUNGS: Equal air entry with basilar crackles, but no wheeze, rhonchi or dullness. CVS: Regular rate and rhythm, normal S1 and S2, no gallops, no murmurs, no rubs ABDOMEN: Soft, nontender. No hepatosplenomegaly, normal bowel sounds, no guarding or rigidity. EXTREMITIES: No clubbing, no edema, no cyanosis, 2+ pulses and upper and lower extremities. MUSCULOSKELETAL: Muscle strength and tone normal. SPINE: No scoliosis or deformity SKIN: No rashes, stage IV sacral ulcer, with a clean wound bed, 100% granulated, no malodorous drainage, no slough, no necrotic tissue CENTRAL NERVOUS SYSTEM: Alert and oriented -3. No obvious facial asymmetry, still complains of numbness on the left side of her face, and left arm, pain in the left ear, and pressure and pain in the left frontal and maxillary sinuses, left expansion joint builder is weaker than the right PSYCHIATRIC: Alert and oriented -3. Appropriate affect. Intact judgment and insight. - Labs CBC & Chem 7: 05/10/19 06:02 05/11/19 06:25 Labs: Abnormal Lab Results - Last 24 Hours (Table) 05/11/19 Range/Units 06:25 Potassium 3.3 L (3.5-5.1) mmol/L BUN 18 H (7-17) mg/dL Creatinine 1.18 H (0.52-1.04) mg/dL Glucose 100 H (74-99) mg/dL Assessment and Plan Plan: Assessment: #1. Acute bilateral pulmonary emboli, incidental finding on the CT angiogram of the brain, completed for purposes of neurologic workup for possibility of CVA #2. Left facial numbness, and left arm numbness, and left arm weakness, CT brain angiogram no large vessel intracranial arterial occlusion or aneurysmal change #3. Left ear pain, patient recently had bilateral ear tubes put in #4. History of coronary artery disease #5. Peripheral vascular disease with previous stenting #6. Chronic sacral wound, with MRSA infection, patient follows at the wound Center, and has recently received hyperbaric treatments #7. Recurrent congestive heart failure, unspecified #8. History of COPD #9. Previous history of CVA/TIA #10. Hypertension #11. Hyperlipidemia #12. History of rheumatoid arthritis #13. Seizure disorder #14. General medical debility, patient is chronically bedbound a resident of [facility] #15. Previous history of bleeding gastric ulcer Plan: Continue oral anticoagulation for acute PEs and lower extremity DVTs, patient will likely need lifelong anticoagulation in view of her chronic immobility. No sign of right ventricular strain on echocardiogram, vital signs are stable, no worsening dyspnea, no complex of chest pain, maintaining stable oxygenation on 2 L of oxygen, hemodynamically patient is stable. No worsening dyspnea. I performed a history & physical examination of the patient and discussed their management with my nurse practitioner, Rosa Lan. I reviewed the nurse practitioner's note and agree with the documented findings and plan of care. Lung sounds are positive for basilar crackles. The findings and the impression was discussed with the patient. I attest to the documentation by the nurse practitioner. Time with Patient: Less than 30
[2019-05-11] MEDS: CLOPIDOGREL 75 MG TAB PO SCH (17:03)
[2019-05-11] MEDS: traZODone HCL 100 MG TAB PO SCH (20:43)
[2019-05-11] MEDS: MELATONIN 5 MG TABLET PO SCH (20:58)
[2019-05-12] MEDS: oxyCODONE-APAP 5-325MG 1 EACH TAB PO SCH (06:53)
[2019-05-12] MEDS: LEVOTHYROXINE 25 MCG TAB PO SCH (06:53)
[2019-05-12 07:35] LABS: Calcium 9.3 mg/dL (8.4-10.2); Potassium 3.1 mmol/L (3.5-5.1)
[2019-05-12 07:38] LABS: Anisocytosis Slight; Basophils % (A) 0 %; Eosinophils # (A) 0.3 k/uL (0-0.7); Eosinophils % (A) 4 %; HCT 34.5 % (34.0-46.0); Hypochromasia Slight; Lymphocytes # (A) 0.5 k/uL (1.0-4.8); Lymphocytes % (A) 7 %; MCH 29.4 pg (25.0-35.0); MCHC 31.8 g/dL (31.0-37.0); MCV 92.7 fL (80.0-100.0); Mean Platelet Volume 8.1; Monocytes # (A) 0.5 k/uL (0-1.0); Monocytes % (A) 7 %; Neutrophils # (A) 5.9 k/uL (1.3-7.7); Neutrophils % (A) 79 %; Platelet Count 337 k/uL (150-450); RBC 3.73 m/uL (3.80-5.40); RDW 17.1 % (11.5-15.5); WBC 7.5 k/uL (3.8-10.6)
--- NOTE | 2019-05-12 08:38 | CDI ---
Documentation Clarification Form Date: 05/11/2019 02:25:32 PM From: Thuy Moseley RN CCDS Admit Date: 05/07/2019 05:10:00 PM Patient Name: Aspen Mendoza Visit Number: [id number] Discharge Date: ATTENTION: The Clinical Documentation Specialists (CDI) and [facility] Coding Staff appreciate your assistance in clarifying documentation. Please respond to the clarification below the line at the bottom and electronically sign. The CDI & [facility] Coding staff will review the response and follow-up if needed. Please note: Queries are made part of the Legal Health Record. If you have any questions, please contact the author of this message via ITS. Dr. Aime Montejo DO A chronic sacral ulcer is documented in the H & P and subsequent documentation. History/Risk Factors: 73-year-old female presents to the ED via EMS from [facility] for left sided facial and arm paresthesias. Medical history CAD; CHF; RA; CVA/TIA; COPD; PVD; Chronic sacral ulcer. Clinical Indicators: Per nursing assessment patient states she has been bed bound for 2 years. States she cannot walk and only pivots. Location: Sacral Wound description: per nursing assessment tunneling Treatment: ABD pad. Elements for accurate and compliant documentation of an ulcer: *The location/laterality of the ulcer *Etiology (decubitus/pressure, diabetic, PVD) *Stage I-IV, Unstageable, Suspected Deep Tissue Injury (To the deepest stage) *If the ulcer was present at admission (POA) or occurred after admission In your professional opinion, can you please clarify the diagnosis, location, laterality and whether present on admission (POA): * Stage 3 Pressure/Decubitus Ulcer (Full thickness tissue loss) * Stage 4 Pressure/Decubitus Ulcer (Full thickness tissue loss with exposed bone, tendon, or muscle. May have slough or eschar present) * Unstageable * Other condition, please specify * Unable to determine Please indicate etiology of pressure ulcer (if known). (Last Revision: February 2017) MTDD
[2019-05-12] MEDS: SYMBICORT 80-4.5 MCG INHALER INHALATION SCH (08:47)
[2019-05-12 09:46] VITALS: TEMP 98
[2019-05-12] MEDS: busPIRone HCl 5 MG TAB PO SCH (09:57)
[2019-05-12] MEDS: FLUoxetine HCL 20 MG CAP PO SCH (09:57)
[2019-05-12] MEDS: levETIRAcetam 500 MG TAB PO SCH (09:58)
[2019-05-12] MEDS: APIXABAN 5 MG TAB PO SCH (09:58)
[2019-05-12] MEDS: ATENOLOL 25 MG TAB PO SCH (09:58)
[2019-05-12] MEDS: CARBIDOPA-LEVODOPA 10-100 MG 1 EACH TAB PO SCH ×2 (09:58→12:41)
[2019-05-12] MEDS: BACLOFEN 10 MG TAB PO SCH ×2 (09:58→12:41)
[2019-05-12] MEDS: FAMOTIDINE 20 MG TAB PO SCH (09:58)
[2019-05-12] MEDS: LORATADINE 10 MG TAB PO SCH (09:58)
[2019-05-12] MEDS: PANTOPRAZOLE 40 MG TABLET PO SCH (09:58)
[2019-05-12] MEDS: FLUTICASONE 50MCG/SPRAY NASAL 16GM EA NOSTRIL SCH (10:00)
[2019-05-12] MEDS: TOFACITINIB CITRATE 11 MG PO SCH (10:03)
--- NOTE | 2019-05-12 10:41 | P.CON ---
Consult Note - . Consult date: 05/12/19 Assessment/Plan:: This is a 73-year-old patient known to the wound care center being seen on for continuation of care of wound. Patient has a stage 3 pressure injury on the sacrum. Measuring approximately 1.2 x 0.7 x 0.8 cm. There is fat layer exposure. With undermining from 11:00 until 2:00. Patient has history of soft tissue radionecrosis. Patient continues to have significant amount of serosanguineous drainage. She has granulation to the wound bed. Patient to complete 40 treatments of hyperbaric therapy. Patient had a wound VAC previously however she has not been able to tolerate wound VAC at this time. Patient was seen by plastic surgery who did not feel she was a candidate for a flap. Wound care has been observed to silver at this time previously it was triad. Review Of Systems: Constitutional: No fever, no chills, no night sweats. No weight change. No weakness, fatigue or lethargy. No daytime sleepiness. Integumentary:reports wounds, no lesions. No rash or pruritus. No unusual bruising. No change in hair or nails. Physical exam: General Appearance: Alert, cooperative, no distress, appears stated age. Skin: See HPI all other Skin color, texture, tugor normal, no rashes or lesions. Neurologic: Alert oriented x3 Assessment: 1. 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 Pressure ulcer of sacral region stage III 3. Nicotine dependence, cigarettes Plan: 1. Absorptive silver, saline moistened gauze, foam, paper tape to secure. Change dressing to this Saturday, continue with weekly wound care visits. Continue with offloading. Thank you for the consultation. Any questions please contact the wound care center DNP note has been reviewed and discussed with Dr. Montejo and the impression and plan of care has been directed as dictated.
[2019-05-12] MEDS: ALPRAZolam 0.25 MG TAB PO SCH (12:40)
[2019-05-12] MEDS: FOLIC ACID 1 MG TAB PO SCH (12:41)
[2019-05-12 12:47] VITALS: BP 106/60; PULSE 68; RESP 18
--- NOTE | 2019-05-12 13:09 | P.DS ---
Providers Date of admission: 05/07/19 17:10 Attending physician: Padmini Liriano Consults: 05/07/19 17:11 Consult Physician Urgent Consulting Provider: Chasidy Gamble Consult Reason/Comments: pe Do you want consulting provider notified?: Yes Consult Physician Urgent Consulting Provider: Camille Nolasco Consult Reason/Comments: cva Do you want consulting provider notified?: Yes 05/07/19 20:42 Consult Physician Routine Consulting Provider: Saúl Abbott Consult Reason/Comments: PE and CVA, CA patient Do you want consulting provider notified?: Yes, Notify in am 05/08/19 09:59 Consult Physician Routine Consulting Provider: Luis Escalante Consult Reason/Comments: left ear pain recent tubes placed 3 mo ago Do you want consulting provider notified?: Yes Primary care physician: Carolyn Delaney [facility] Course: This is a 73-year-old female one of Dr. Delaeny's patient with a known history of colorectal cancer, recurrent UTIs, COPD, depression, chronic decub in the sacral area follows with wound care center at [facility] and [facility] and currently resides at [facility] x 1 year, and is wheelchair bound.. Patient was recently seen in the emergency department y for left face numbness, left shoulder numbness, upper extremity numbness, for the past 3 days, accompanied by weakness of the upper extremity, pain in the upper shoulders, posterior back, for the past 3 days. Patient has had leg swelling and pain left side, for the past 3 months. She had PAD with stents placed several months ago and is on Plavix for it. Patient also sees nurse practitioner Mary Ann, for wound in the sacrum at the wound clinic,, refused to be seen by infectious disease while in the hospital. She has had multiple debridements of the sacrum, and had multiple referrals to plastic surgeon, however this is not amenable to treatment secondary to radiation changes to the skin. 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 Incidentally, the CTA of the chest showed partially visualized upper lobe and segmental partial pulmonary emboli on both sides, additional embolus in the left main pulmonary artery, patient was subsequently admitted secondary to TIA againstCVA, paraneoplastic syndrome as well as acute pulmonary emboli that was incidentally seen in the CT angiogram of the neck. Multiple consultation to Dr. Jefferson from neurology, Dr. Abbott from oncology, Dr. Kelley from pulmonary medicine. Patient refused infectious disease consultation, patient was started on iv heparin, irina have requested MRi brain with IAC, doppler lyly lower extremitis, and soon will need spect ct o to be done this admissionf sacrum for osteomyelitis 05/09: Seen by ENT, tympanostomy tube is in place, they have suggested TMJ as a problem for the left ear left base, MRI brain ruled out CVA,, patient still is refusing statins, has seen by oncology, with recommendations for eliquis, imaging studies are underway for GI cancer evaluation, with a CAT scan, patient would need SPECT CT of the sacrum in a.m. to evaluate for osteomyelitis however CTs underwent also for the abdomen. We will with this results, waiting for creatinine clear currently at 1.08 from 1.18, C4 imaging studies, continue to hydrate. Patient has tremors, although less will discontinue IV heparin today, and transition to eliquis today, no RV strain on echocardiogram RVSP less than 35 normal , pulse oximetry 96- 97% on room on 3 L is a cannula. 05/10, patient has headache left frontal, left jaw, and left occiput, most likely secondary TMJ, and occipital neuralgia, patient was offered lidocaine for supplemental control, incidentally agreeable to this one. CAT scan imaging abdomen and pelvis, shows artifact changes secondary to hip prosthesis, there is no obstruction, occasional diverticulosis of the sigmoid colon, however direct visualization is warranted, no lymphadenopathy, six-month follow-up recommended to confirm stability. Creatinine is at 1.12, hemoglobin of 10.7 stable, double basic count decreased now to 9.3, C. diff negative requesting SPECT-CT images of the sacrum to evaluate for osteomyelitis, has chronic decubiti, nonhealing wounds 05/11 patient examined at bedside complaining of headache on the left side and jaw pain. The seen by ENT yesterday and was told to have TMJ dislocation for which patient would need to have her dentures checked. Patient has not been seen by wound care nurse here. Bone scan ordered results pending. Vitals are stable. Patient's numbness in the upper and lower extremity is still persistent on the left. Patient is had multiple back surgeries and is currently bedbound. She has foot drop on the left and has minimal motor power in the left limb which is present from the previous CVA. On assessment of lab patient has a hemoglobin of 10 and a creatinine 1.18 and potassium of 3.3 status post 20 meq of potassium Patient examined at bedside. Feeling better but still complains of headache on the left side and difficulty with shoulder mobility on the right. Patient has outpatient appointment pending with Dr. Butler. Follow-up as outpatient with ENT for possible TMJ dislocation. If his bone scan was negative Discharge diagnosis 1. acute lyly PE and lyly dvt , with known history of malignancy, will need life long anticoagulation 2. left face numbness and left uppper extremitiy weakness, ruled out acute cva ,has residual left hemiparesis 3. old hemiparesis from previous cva 4. uncontrolled hyperlipidemia 5. parkinsons vs benign familial tremors 6 Chronic depression, anxiety and panic attacks. 7 Insomnia: 8. Chronic Sacral ulcer: 9. 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 Chronic pain syndrome. 11. Hypertension. 12. Seizure. 13 Hypothyroidism 14. Left otalgia secondary to TMJ, recent eustachean tube placement functional in place Patient Condition at Discharge: Good Plan - Discharge Summary Discharge Rx Participant: No New Discharge Prescriptions: New Apixaban [Eliquis] 10 mg PO BID tab ALPRAZolam [Xanax] 0.25 mg PO BID@1300,2100 #6 tab Continue busPIRone HCL 15 mg PO BID@0900,2100 levETIRAcetam [Keppra] 500 mg PO BID@0900,2100 Levothyroxine Sodium [Synthroid] 25 mcg PO DAILY@0600 Folic Acid 1 mg PO DAILY@1300 Baclofen [Lioresal] 10 mg PO TID@0900,1300,2100 Clopidogrel Bisulfate [Plavix] 75 mg PO DAILY@1700 ALPRAZolam [Xanax] 0.25 mg PO BID@1300,2100 Fluticasone/Vilanterol [Breo Ellipta 100-25 Mcg Inhaler] 1 puff INHALATION DAILY@0900 Mylanta 30 ml PO Q4H PRN PRN Reason: Indigestion Nitroglycerin Sl Tabs [Nitrostat] 0.4 mg SL Q5M PRN PRN Reason: Chest Pain Acetaminophen Tab [Tylenol] 650 mg PO Q4H PRN PRN Reason: Pain Loperamide [Imodium] 2 mg PO Q8H PRN PRN Reason: Loose Stool Sodium Chloride [Saline Nasal Dunlow] 2 spray EA NOSTRIL TID@0900,1300,2100 Fluticasone Nasal Dunlow [Flonase Nasal Dunlow] 1 spray EA NOSTRIL BID@0900,2100 Melatonin 10 mg PO HS@2100 FLUoxetine HCL [PROzac] 20 mg PO DAILY@0900 Tofacitinib Citrate [Xeljanz Xr] 11 mg PO DAILY@0900 Prostat Awc 30 ml PO BID@0900,1700 Atenolol [Tenormin] 12.5 mg PO BID@0900,2100 Carbidopa-Levodopa 10-100 mg [Sinemet 10-100 mg] 1 tab PO TID@0900,1300,2100 Dicyclomine [Bentyl] 10 mg PO BID PRN PRN Reason: STOMACH CRAMPING Ipratropium-Albuterol Nebulize [Duoneb 0.5 mg-3 mg/3 ml Soln] 3 ml INHALATION RT-QID PRN PRN Reason: HYPOXIA Loratadine [Claritin] 10 mg PO DAILY@0900 Pantoprazole Sodium [Protonix] 40 mg PO DAILY@0900 traZODone HCL [Desyrel] 100 mg PO HS@2100 oxyCODONE HCL/ACETAMINOPHEN [Endocet 5-325 mg] 1 tab PO TID@0600,1400,2200 #9 tablet Discharge Medication List Baclofen [Lioresal] 10 mg PO TID@0900,1300,2100 02/22/16 [History] Folic Acid 1 mg PO DAILY@1300 02/22/16 [History] Levothyroxine Sodium [Synthroid] 25 mcg PO DAILY@0600 02/22/16 [History] busPIRone HCL 15 mg PO BID@0900,2100 02/22/16 [History] levETIRAcetam [Keppra] 500 mg PO BID@0900,2100 02/22/16 [History] Clopidogrel Bisulfate [Plavix] 75 mg PO DAILY@1700 12/12/18 [History] ALPRAZolam [Xanax] 0.25 mg PO BID@1300,209905/14/18 [History] Fluticasone/Vilanterol [Breo Ellipta 100-25 Mcg Inhaler] 1 puff INHALATION DAILY@0905/15/18 [History] Mylanta 30 ml PO Q4H PRN 05/15/18 [History] Nitroglycerin Sl Tabs [Nitrostat] 0.4 mg SL Q5M PRN 05/15/18 [History] Acetaminophen Tab [Tylenol] 650 mg PO Q4H PRN 06/13/18 [History] Fluticasone Nasal Dunlow [Flonase Nasal Dunlow] 1 spray EA NOSTRIL BID@0900,209906/13/18 [History] Loperamide [Imodium] 2 mg PO Q8H PRN 06/13/18 [History] Sodium Chloride [Saline Nasal Dunlow] 2 spray EA NOSTRIL TID@0900,1300,209906/13/18 [History] Melatonin 10 mg PO HS@209906/14/18 [History] FLUoxetine HCL [PROzac] 20 mg PO DAILY@89907/08/18 [History] Tofacitinib Citrate [Xeljanz Xr] 11 mg PO DAILY@89908/05/18 [History] Atenolol [Tenormin] 12.5 mg PO BID@0900,209905/07/19 [History] Carbidopa-Levodopa 10-100 mg [Sinemet 10-100 mg] 1 tab PO TID@0900,1300,209905/07/19 [History] Dicyclomine [Bentyl] 10 mg PO BID PRN 05/07/19 [History] Ipratropium-Albuterol Nebulize [Duoneb 0.5 mg-3 mg/3 ml Soln] 3 ml INHALATION RT-QID PRN 05/07/19 [History] Loratadine [Claritin] 10 mg PO DAILY@0905/07/19 [History] Pantoprazole Sodium [Protonix] 40 mg PO DAILY@0905/07/19 [History] Prostat Awc 30 ml PO BID@0900,1700 05/07/19 [History] traZODone HCL [Desyrel] 100 mg PO HS@209905/07/19 [History] ALPRAZolam [Xanax] 0.25 mg PO BID@1300,2100 #6 tab 05/12/19 [Rx] Apixaban [Eliquis] 10 mg PO BID tab 05/12/19 [Rx] oxyCODONE HCL/ACETAMINOPHEN [Endocet 5-325 mg] 1 tab PO TID@0600,1400,2200 #9 tablet 05/12/19 [Rx] Follow up Appointment(s)/Referral(s): Carolyn Delaney MD [Primary Care Provider] - 1-2 days Activity/Diet/Wound Care/Special Instructions: Sacral wound stage 3 - Absorptive silver, saline moistened gauze, foam, paper tape to secure. Change dressing to this Saturday, continue with weekly wound care visits. Continue with offloading. Discharge Disposition: TRANSFER TO SNF/ECF
[2019-05-12 13:18] VITALS: BMI 33.0
--- NOTE | 2019-05-12 15:52 | P.PN ---
Subjective Progress Note Date: 05/12/19 Principal diagnosis: CVA, PE In f/u today pt states she is being discharged, We reviewed her CT scan results in regards to her rectal cancer. She is on eliquis, denies any overt bleeding Objective - Vital Signs Vital signs: Vital Signs Temp 98 F 05/12/19 08:00 Pulse 68 05/12/19 12:00 Resp 18 05/12/19 12:00 BP 106/60 05/12/19 12:00 Pulse Ox 92 L 05/12/19 12:00 Intake & Output 05/11/19 05/12/19 05/12/19 18:59 06:59 18:59 Intake Total 120 Output Total 1400 200 Balance -1280 -200 Weight 84.5 kg 84.5 kg Intake: Oral 120 Output: Urine 1400 200 Uretheral (Arceo) 100 Other: Voiding Method Indwelling Catheter Indwelling Catheter Indwelling Catheter # Voids 0 - Constitutional General appearance: Present: average body habitus, cooperative, no acute distres s - EENT Eyes: Present: anicteric sclerae, EOMI ENT: Present: hearing grossly normal - Respiratory Details: respirations even and unlabored - Gastrointestinal General gastrointestinal: Present: soft - Integumentary Integumentary: Present: pale - Neurologic Neurologic Comment(s): hand tremor - Musculoskeletal Musculoskeletal: Present: generalized weakness, strength equal bilaterally - Psychiatric Psychiatric: Present: A&O x's 3, appropriate affect - Labs CBC & Chem 7: 05/12/19 06:51 05/12/19 06:51 Labs: Abnormal Lab Results - Last 24 Hours (Table) 05/12/19 05/12/19 Range/Units 06:51 06:51 RBC 3.73 L (3.80-5.40) m/uL Hgb 11.0 L (11.4-16.0) gm/dL RDW 17.1 H (11.5-15.5) % Lymphocytes # 0.5 L (1.0-4.8) k/uL Potassium 3.1 L (3.5-5.1) mmol/L BUN 19 H (7-17) mg/dL Creatinine 1.22 H (0.52-1.04) mg/dL - Imaging and Cardiology CT scan - abdomen: report reviewed CT scan - pelvis: report reviewed Assessment and Plan (1) DVT, bilateral lower limbs Current Visit: Yes Status: Acute Priority: High Code(s): I82.403 - ACUTE EMBOLISM AND THOMBOS UNSP DEEP VEINS OF LOW EXTRM, BI SNOMED Code(s): 812095465 (2) Pulmonary embolus Current Visit: Yes Status: Acute Priority: High Code(s): I26.99 - OTHER PULMONARY EMBOLISM WITHOUT ACUTE COR PULMONALE SNOMED Code(s): 04033956 Plan: Bilateral lower extremity DVT and LLL PE, suspect r/t ongoing rectal area wound. Eliquis recommended as oral anticoagulant, this has been started no gross bleeding. Recommendation for anticoagulation for at least [address] Knott Due to lack of f/u in the last 4 years, unprovoked BLE DVT, PE and non healing perirectal wounds CT AP ordered, no evidence to suggest recurrent malignancy. Advised pt that she should f/u with Dr. Knott at least every 6 mo for another year or 2. GI routine f/u recommended as well.
--- NOTE | 2019-05-15 09:45 | CDI ---
Documentation Clarification Form Date: 05/15/2019 From: Darlyn Torre Phone: If you have a question about this query, please contact Lore Morin, Drive Worker at [phone] between 8am and 5pm. Admit Date: 05/07/19 Discharge Date:05/12/19 Patient Name: Aspen Mendoza Visit Number: [id number] ATTENTION: The Clinical Documentation Specialists (CDI) and [facility] Coding Staff appreciate your assistance in clarifying documentation. Please respond to the clarification below the line at the bottom and electronically sign. The CDI & [facility] Coding staff will review the response and follow-up if needed. Please note: Queries are made part of the Legal Health Record. If you have any questions, please contact the author of this message via ITS. Dear Dr. Padmini Liriano TIA suspected is documented as a diagnosis in the H&P and throughout the chart. Acute bilateral PE and lower extremity DVT with workup for possiblity of CVA is documented in Dr. Bryant's 05/[address] Townsend's 05/11 progress note. Documentation in the discharge summary stated CVA ruled out. Patient history/risk factors: History of CVA with left weakness, hypertension, PE, bilateral lower extremity DVT Clinical indicators: left face numbness, left arm numbness and weakness CT head: Mild generalized atrophy and changes of chronic small vessel disease. No acute intracranial abnormality. CT head and neck: Patent vertebral and carotid arteries of the neck. Treatment: Heparin IV Consult: Dr. Nolasco documented 3 day history of possible left -sided numbness. Rule out CVA. In your professional opinion, please clarify if the transient ischemic attack was: Ruled In Ruled Out Other (please specify): Etiology unknown or Unable to determine TIA RULED OUT MTDD
== END 2019-05-12 15:50 | DRG 175 ==
LOC: EEVIPCON 14:54 → EC 14:54 → 3SCARD 17:10
PROVIDERS: ADMIT Family Medicine; ATTEND Family Medicine
DX: I26.99 Other pulmonary embolism without acute cor pulmonale (principal); L89.153 Pressure ulcer of sacral region, stage 3; G45.9 Transient cerebral ischemic attack, unspecified; I13.0 Hypertensive heart and chronic kidney disease with heart failure and stage 1 through stage 4 chronic kidney disease, or unspecified chronic kidney disease; I50.32 Chronic diastolic (congestive) heart failure; I69.354 Hemiplegia and hemiparesis following cerebral infarction affecting left non-dominant side; I82.431 Acute embolism and thrombosis of right popliteal vein; I82.4Z1 Acute embolism and thrombosis of unspecified deep veins of right distal lower extremity; I82.412 Acute embolism and thrombosis of left femoral vein; I82.4Z2 Acute embolism and thrombosis of unspecified deep veins of left distal lower extremity; N17.9 Acute kidney failure, unspecified; G20 Parkinson's disease; D64.9 Anemia, unspecified; R20.0 Anesthesia of skin; D72.828 Other elevated white blood cell count; E03.9 Hypothyroidism, unspecified; E78.5 Hyperlipidemia, unspecified; F32.9 Major depressive disorder, single episode, unspecified; F41.0 Panic disorder [episodic paroxysmal anxiety]; G40.909 Epilepsy, unspecified, not intractable, without status epilepticus; G47.00 Insomnia, unspecified; G62.9 Polyneuropathy, unspecified; G89.4 Chronic pain syndrome; H69.93 Unspecified Eustachian tube disorder, bilateral; I25.10 Atherosclerotic heart disease of native coronary artery without angina pectoris; I73.9 Peripheral vascular disease, unspecified; J44.9 Chronic obstructive pulmonary disease, unspecified; M06.9 Rheumatoid arthritis, unspecified; M26.602 Left temporomandibular joint disorder, unspecified; M54.81 Occipital neuralgia; M79.7 Fibromyalgia; N18.9 Chronic kidney disease, unspecified; H92.02 Otalgia, left ear; M54.9 Dorsalgia, unspecified; K58.9 Irritable bowel syndrome, unspecified; E66.9 Obesity, unspecified; Z68.33 Body mass index [BMI] 33.0-33.9, adult; Z74.01 Bed confinement status; Z79.02 Long term (current) use of antithrombotics/antiplatelets; Z79.890 Hormone replacement therapy; Z79.899 Other long term (current) drug therapy; Z79.891 Long term (current) use of opiate analgesic; Z79.52 Long term (current) use of systemic steroids; Z88.8 Allergy status to other drugs, medicaments and biological substances; Z88.5 Allergy status to narcotic agent; Z88.0 Allergy status to penicillin; Z88.2 Allergy status to sulfonamides; Z88.6 Allergy status to analgesic agent; Z88.1 Allergy status to other antibiotic agents; Z91.041 Radiographic dye allergy status; Z87.11 Personal history of peptic ulcer disease; Z87.440 Personal history of urinary (tract) infections; Z90.710 Acquired absence of both cervix and uterus; Z95.820 Peripheral vascular angioplasty status with implants and grafts; Z96.643 Presence of artificial hip joint, bilateral; Z96.651 Presence of right artificial knee joint; Z90.49 Acquired absence of other specified parts of digestive tract; Z99.3 Dependence on wheelchair; Z87.891 Personal history of nicotine dependence; Z98.42 Cataract extraction status, left eye; Z98.41 Cataract extraction status, right eye; Z96.1 Presence of intraocular lens; Z85.038 Personal history of other malignant neoplasm of large intestine; Z85.048 Personal history of other malignant neoplasm of rectum, rectosigmoid junction, and anus; Z86.14 Personal history of Methicillin resistant Staphylococcus aureus infection; Z82.3 Family history of stroke; Z80.8 Family history of malignant neoplasm of other organs or systems
CPT/HCPCS: 36415; 70450; 70496; 70498; 70553; 71046; 74177; 78315; 80048; 80053; 80061; 82272; 82550; 82553; 84484; 85025; 85610; 85730; 87324; 93005; 93306; 93970; 94640; 96374; 96375; 99283; 99291

== ENCOUNTER 2019-05-12 20:45 | Emergency (ER) | payer MEDICARE, OTHER ==
[2019-05-12] MEDS ORDERED: oxyCODONE-APAP 7.5-325MG 1 EACH TAB PO STA (21:21)
[2019-05-12] MEDS ORDERED: ALPRAZolam 0.25 MG TAB PO STA (21:21)
[2019-05-12] MEDS ORDERED: levETIRAcetam 500 MG TAB PO STA (21:21)
[2019-05-12] MEDS ORDERED: BACLOFEN 10 MG TAB PO STA (21:22)
[2019-05-12] MEDS ORDERED: traZODone HCL 50 MG TAB PO STA (21:22)
--- NOTE | 2019-05-12 21:27 | ED ---
Fall HPI - General Chief Complaint: Fall Stated Complaint: Fall Time Seen by Provider: 05/12/19 20:49 Source: EMS Mode of arrival: EMS - History of Present Illness Initial Comments: This patient is a 73-year-old woman, presenting from the residential to have evaluation after she had a fall. The patient states that she was attempting to demonstrate that she does not walk well. She attempted to stand next to her bed and then she could not support herself and slid down, striking her head. halfway staff felt that she should have evaluation, but the patient on arrival denies any injury. She states she does have a little bit of headache at baseline but states that she has had this for a number of months intermittently. She states that she does not want to have any evaluation here. She also acknowledges that she had a bump to her left arm but she does not want any imaging there either and states that it is just a dull ache. Patient denies any change in neurologic status. 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 Witnessed: yes, by living facility staff Place Fall Occurred: residential/SNF Loss of Consciousness: none Prolonged Down Time?: no Symptoms Prior to Fall: none Location: head Location - Extremities: Left: Arm Severity: mild Quality: dull Associated Symptoms: headache - Related Data Home Medications Medication Instructions Recorded Confirmed Baclofen [Lioresal] 10 mg PO TID@0900,1300,2100 02/22/16 05/07/19 Folic Acid 1 mg PO DAILY@1300 02/22/16 05/07/19 Levothyroxine Sodium [Synthroid] 25 mcg PO DAILY@0600 02/22/16 05/07/19 busPIRone HCL 15 mg PO BID@0900,2100 02/22/16 05/07/19 levETIRAcetam [Keppra] 500 mg PO BID@0900,2100 02/22/16 05/07/19 Clopidogrel Bisulfate [Plavix] 75 mg PO DAILY@1700 04/23/18 05/07/19 ALPRAZolam [Xanax] 0.25 mg PO BID@1300,2100 05/14/18 05/07/19 Fluticasone/Vilanterol [Breo 1 puff INHALATION DAILY@0900 05/15/18 05/07/19 Ellipta 100-25 Mcg Inhaler] Mylanta 30 ml PO Q4H PRN 05/15/18 05/07/19 Nitroglycerin Sl Tabs [Nitrostat] 0.4 mg SL Q5M PRN 05/15/18 05/07/19 Acetaminophen Tab [Tylenol] 650 mg PO Q4H PRN 06/13/18 05/07/19 Fluticasone Nasal [place] [Flonase 1 spray EA NOSTRIL BID@0900,209906/13/18 05/07/19 Nasal [place]] Loperamide [Imodium] 2 mg PO Q8H PRN 06/13/18 05/07/19 Sodium Chloride [Saline Nasal 2 spray EA NOSTRIL 06/13/18 05/07/19 [place]] TID@0900,1300,2099 Melatonin 10 mg PO HS@209906/14/18 05/07/19 FLUoxetine HCL [PROzac] 20 mg PO DAILY@0907/08/18 05/07/19 Tofacitinib Citrate [Xeljanz Xr] 11 mg PO DAILY@0908/05/18 05/07/19 Atenolol [Tenormin] 12.5 mg PO BID@0900,209905/07/19 05/07/19 Carbidopa-Levodopa 10-100 mg 1 tab PO TID@0900,1300,209905/07/19 05/07/19 [Sinemet 10-100 mg] Dicyclomine [Bentyl] 10 mg PO BID PRN 05/07/19 05/07/19 Ipratropium-Albuterol Nebulize 3 ml INHALATION RT-QID PRN 05/07/19 05/07/19 [Duoneb 0.5 mg-3 mg/3 ml Soln] Loratadine [Claritin] 10 mg PO DAILY@0905/07/19 05/07/19 Pantoprazole Sodium [Protonix] 40 mg PO DAILY@0905/07/19 05/07/19 Prostat Awc 30 ml PO BID@0900,1700 05/07/19 05/07/19 traZODone HCL [Desyrel] 100 mg PO HS@209905/07/19 05/07/19 Previous Rx's Medication Instructions Recorded ALPRAZolam [Xanax] 0.25 mg PO BID@1300,2100 #6 tab 05/12/19 Apixaban [Eliquis] 10 mg PO BID tab 05/12/19 oxyCODONE HCL/ACETAMINOPHEN 1 tab PO TID@0600,1400,2200 #9 05/12/19 [Endocet 5-325 mg] tablet Allergies Allergy/AdvReac Type Severity Reaction Status Date / Time amitriptyline Allergy Unknown Verified 05/07/19 18:03 aspirin Allergy Unknown Verified 05/07/19 18:03 ciprofloxacin [From Cipro] Allergy Unknown Verified 05/07/19 18:03 codeine Allergy Hallucinati Verified 05/07/19 18:03 [From Tylenol-Codeine #3] ons ezetimibe Allergy Unknown Verified 05/07/19 18:03 fluoxetine [From Prozac] Allergy Unknown Verified 05/07/19 18:03 ibuprofen [From Motrin] Allergy Unknown Verified 05/07/19 18:03 indomethacin [From Indocin] Allergy Unknown Verified 05/07/19 18:03 Iodinated Contrast Media Allergy Unknown Verified 05/07/19 18:03 [Iodinated Contrast- Oral and IV Dye] niacin Allergy Unknown Verified 05/07/19 18:03 nitrofurantoin Allergy Unknown Verified 05/07/19 18:03 Penicillins Allergy Anaphylaxis Verified 05/07/19 18:03 pregabalin Allergy Unknown Verified 05/07/19 18:03 Quhcdym-Aml-Dgx Reductase Allergy Unknown Verified 05/07/19 18:03 Inhibitor Sulfa (Sulfonamide AdvReac Nausea & Verified 05/07/19 18:03 Antibiotics) Vomiting & Diarrhea Review of Systems ROS Statement: Those systems with pertinent positive or pertinent negative responses have been documented in the HPI. ROS Other: All systems not noted in ROS Statement are negative. Constitutional: Denies: fever Eyes: Denies: eye pain, vision change ENT: Denies: epistaxis Respiratory: Denies: cough, dyspnea Cardiovascular: Denies: chest pain Gastrointestinal: Denies: abdominal pain Musculoskeletal: Denies: back pain Skin: Reports: other (Chronic decubitus ulcer) Neurological: Reports: headache (Chronic for years), weakness (Chronic) Past Medical History Past Medical History: Coronary Artery Disease (CAD), Cancer, Heart Failure, COPD, CVA/TIA, Hyperlipidemia, Hypertension, Rheumatoid Arthritis (RA), Seizure Disorder, Skin Disorder, Thyroid Disorder, Vascular Disorder Additional Past Medical History / Comment(s): SACRAL WOUND STAGE 3 ([facility]). Arceo catheter. DAMARI'S ESOPHAGUS. IBS. Colorectal/anal cancer 2012. FIBROMYALGIA. Peripheral vascular disease with previous stenting to the lower extremities. Chronic back pain. "Blood poisoning and bowel obtruction. "Rapid heart rate with SOB". Walker with wheels. 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 Bone removed and yaquelin placed left leg. Surgery for bowel obstruction x 2. Lyly cataracts Past Anesthesia/Blood Transfusion Reactions: No Reported Reaction Past Psychological History: Depression, Panic Disorder Smoking Status: Former smoker Past Alcohol Use History: None Reported Past Drug Use History: None Reported - Past Family History Mother History Unknown: Yes Family Medical History: CVA/TIA Father History Unknown: Yes Additional Family Medical History / Comment(s): father of blot clots 6months after cabg Daughter(s) Family Medical History: Cancer Additional Family Medical History / Comment(s): bone General Exam Limitations: no limitations General appearance: alert, in no apparent distress Head exam: Present: atraumatic, normocephalic Eye exam: Present: normal appearance, PERRL, EOMI. Absent: scleral icterus, conjunctival injection Neck exam: Present: normal inspection, full ROM. Absent: tenderness Respiratory exam: Present: normal lung sounds bilaterally. Absent: respiratory distress, wheezes, rales, rhonchi, stridor, chest wall tenderness Cardiovascular Exam: Present: regular rate, normal rhythm, normal heart sounds. Absent: systolic murmur, diastolic murmur, rubs, gallop GI/Abdominal exam: Present: soft. Absent: distended, tenderness, guarding, rebound Extremities exam: Present: normal inspection, normal capillary refill. Absent: tenderness, pedal edema, calf tenderness Neurological exam: Present: alert Skin exam: Present: warm, dry Course Vital Signs 05/12/19 05/12/19 20:49 22:00 Temperature 99.1 F 98.4 F Pulse Rate 83 68 Respiratory 20 18 Rate Blood Pressure 152/75 140/79 O2 Sat by Pulse 93 L 94 L Oximetry Medical Decision Making - Medical Decision Making Patient is a 73-year-old woman coming from long-term care facility after a low mechanism of injury fall. The patient states that she feels she is doing well and that she does not want to have any workup. The patient does state that she had been in the hospital for nearly one week and had left this afternoon. She states that she did not receive her night medications from her long-term care facility and if it is possible she would like to have these and go back home. I did discuss with patient that she is free to change her mind at any time if she would like to have imaging done. Disposition Clinical Impression: Fall Disposition: HOME SELF-CARE Condition: Fair Instructions (If sedation given, give patient instructions): Fall Prevention (ED) Is patient prescribed a controlled substance at d/c from ED?: No Referrals: Carolyn Delaney MD [Primary Care Provider] - 1-2 days
[2019-05-12 22:02] VITALS: BP 140/79; PULSE 68; RESP 18; TEMP 98.4
== END 2019-05-12 22:02 | disposition home or self-care (01) ==
LOC: EC 20:45
DX: Z04.3 Encounter for examination and observation following other accident (principal); R51 Headache; I25.10 Atherosclerotic heart disease of native coronary artery without angina pectoris; I11.0 Hypertensive heart disease with heart failure; I50.9 Heart failure, unspecified; E07.9 Disorder of thyroid, unspecified; F41.0 Panic disorder [episodic paroxysmal anxiety]; F32.9 Major depressive disorder, single episode, unspecified; G40.909 Epilepsy, unspecified, not intractable, without status epilepticus; Z79.890 Hormone replacement therapy; Z79.02 Long term (current) use of antithrombotics/antiplatelets; Z79.51 Long term (current) use of inhaled steroids; Z79.899 Other long term (current) drug therapy; Z88.6 Allergy status to analgesic agent; Z88.1 Allergy status to other antibiotic agents; Z88.5 Allergy status to narcotic agent; Z88.8 Allergy status to other drugs, medicaments and biological substances; Z91.041 Radiographic dye allergy status; Z88.0 Allergy status to penicillin; Z88.2 Allergy status to sulfonamides; Z86.73 Personal history of transient ischemic attack (TIA), and cerebral infarction without residual deficits; Z96.651 Presence of right artificial knee joint; Z96.643 Presence of artificial hip joint, bilateral; Z87.891 Personal history of nicotine dependence
CPT/HCPCS: 99283

== ENCOUNTER → 2019-05-25 | Outpatient (CLI) | payer MEDICARE, OTHER ==
--- NOTE | 2019-05-25 11:44 | US ---
EXAMINATION TYPE: US venous doppler duplex LE LT DATE OF EXAM: 05/25/2019 11:10 AM COMPARISON: 05/08/2019 CLINICAL HISTORY: M79.605 Pain in left leg. SIDE PERFORMED: left+ TECHNIQUE: The lower extremity deep venous system is examined utilizing real time linear array sonog wanda with graded compression, doppler sonography and color-flow sonography. VESSELS IMAGED: External Iliac Vein (EIV) Common Femoral Vein Deep Femoral Vein Greater Saphenous Vein * Femoral Vein Popliteal Vein Small Saphenous Vein * (* superficial vessels) Technically difficult due to patient tremors and inability to abduct leg. Left Leg: DVT left leg, appears slightly improved from previous scan in April. Patient and math and science instructor state patient on blood thinner. IMPRESSION: Chronic deep venous thrombosis within the left mid femoral vein and popliteal vein appear s slightly improved from the prior of 05/08/2019.
== END | disposition home or self-care (01) ==
LOC: RADUSWWP 10:37
PROVIDERS: ATTEND Thoracic Surgery (Cardiothoracic Vascular Surgery)
DX: I82.532 Chronic embolism and thrombosis of left popliteal vein (principal)

== ENCOUNTER 2020-01-15 18:56 | Inpatient (IN) | payer MEDICARE, OTHER ==
[2020-01-15] MEDS ORDERED: MORPHINE SULFATE 4 MG/ML SYRINGE IV STA (19:06)
--- NOTE | 2020-01-15 19:11 | ED ---
General Adult HPI - General Chief complaint: Back Pain/Injury Stated complaint: Leg pain Time Seen by Provider: 01/15/20 18:57 Source: patient, EMS Mode of arrival: EMS Limitations: no limitations - History of Present Illness Initial comments: Dictation was produced using Inf[employer] dictation software. please excuse any grammatical, word or spelling errors. This patient was cared for during a federal and state declared state of emergency secondary to Covid 19 Chief Complaint: 74-year-old female brought in for worsening right lower leg weakness and numbness. History of Present Illness: 74-year-old female. I did get a call ahead from the [facility] doctor. States that we should be expecting the patient this coming from [facility] for back pain and right lower extremity neurologic deficits. According to EMS and patient. She was at the shelter where she was in a hoist for a shower. Patient reports that the staff member who is giving her shower was not familiar with the equipment. She was in her voice and she was dr haynes causing her back pain. Patient has history of right lower extremity weakness and paresthesias. She has not had sensation to her right lower extremity since 4 months ago. She has history of multiple back surgeries. Patient is chronically debilitated. She does not ambulate at baseline. Dr. Delaney who is [facility] doctor was concerned about traumatic spinal injury. He request that patient get CT imaging.. Alleged fall occurred approximately for 5 days ago. The ROS documented in this emergency department record has been reviewed and confirmed by me. Those systems with pertinent positive or negative responses have been documented in the HPI. All other systems are other negative and/or noncontributory. PHYSICAL EXAM: General Impression: Alert and oriented x3, not in acute distress HEENT: Normocephalic atraumatic, extra-ocular movements intact, pupils equal and reactive to light bilaterally, mucous membranes moist. Cardiovascular: Heart regular rate and rhythm Chest: Able to complete full sentences, no retractions, no tachypnea Abdomen: abdomen soft, non-tender, non-distended, no organomegaly Musculoskeletal: Pulses present and equal in all extremities, no peripheral edema Neurological: CN II-XII grossly intact, tremulous, last process of the right lower extremity, 2+ weakness in the left lower extremity. She does not have any sensory to painful stimuli at about the mid thigh level, no clonus, no knee hyperreflexia Skin: Intact with no visualized rashes Psych: Normal affect and mood ED course: 74-year-old female with chronic back injuries, multiple back surgeries and chronic right lower extremity numbness and weakness presents with fall from shower hoist 4 days ago. She was sent in by [facility] doctor who was concerned about traumatic back injury. She has indwelling Arceo catheter. She also has history of radiation to the anus and is incontinent to stool c hronically. EKG shows atrial flutter which was not apparent on previous EKG however patient's currently on Elavil course and is rate controlled. Laboratory evaluation obtained. CBC is unremarkable. Coag panel is negative. Metabolic panel is negative. Computed tomography scan of the head and C-spine was obtained showing no acute processes. Thoracic and lumbar CT shows previous surgery with no acute bony abnormality. I did discussed patient case further with Dr. Delaney. I did mention to him that patient reports that she has had weakness in her right leg for [address] Delaney is not so sure and believes that patient should be evaluated by a spinal surgeon and to get an urgent MRI. We usually don't have any MRI capabilities over the weekend however recontacted MRI and they will be able to take patient for MRI tomorrow. We discussed patient case with Dr. Delaney is willing to accept patients care for admission. Discussed case with Dr. Neely or spinal surgeon who will consult on patient tomorrow. EKG interpretation: Ventricular rate 74, atrial flutter, QRS 66, QTC 457. No PA prolongation, no QTC prolongation, no ST or T-wave changes noted. Overall, this EKG is unremarkable - Related Data Home Medications Medication Instructions Recorded Confirmed Baclofen [Lioresal] 10 mg PO TID@0900,1300,2100 02/22/16 05/07/19 Folic Acid 1 mg PO DAILY@1300 02/22/16 05/07/19 Levothyroxine Sodium [Synthroid] 25 mcg PO DAILY@0600 02/22/16 05/07/19 busPIRone HCL 15 mg PO BID@0900,2100 02/22/16 05/07/19 levETIRAcetam [Keppra] 500 mg PO BID@0900,2100 02/22/16 05/07/19 Fluticasone/Vilanterol [Breo 1 puff INHALATION DAILY@0905/15/18 05/07/19 Ellipta 100-25 Mcg Inhaler] Nitroglycerin Sl Tabs [Nitrostat] 0.4 mg SL Q5M PRN 05/15/18 05/07/19 Acetaminophen Tab [Tylenol] 650 mg PO Q4H PRN 06/13/18 05/07/19 Fluticasone Nasal [place] [Flonase 1 spray EA NOSTRIL BID@09,209906/13/18 05/07/19 Nasal [place]] Sodium Chloride [Saline Nasal 2 spray EA NOSTRIL 06/13/18 05/07/19 [place]] TID@0900,1300,2099 Melatonin 10 mg PO HS@209906/14/18 05/07/19 Tofacitinib Citrate [Xeljanz Xr] 11 mg PO DAILY@89908/05/18 05/07/19 Dicyclomine [Bentyl] 10 mg PO BID PRN 05/07/19 05/07/19 Loratadine [Claritin] 10 mg PO DAILY@89905/07/19 05/07/19 Pantoprazole Sodium [Protonix] 40 mg PO DAILY@89905/07/19 05/07/19 Prostat Awc 30 ml PO BID@0900,1700 05/07/19 05/07/19 atenoloL [Tenormin] 12.5 mg PO BID@0900,209905/07/19 05/07/19 traZODone HCL [Desyrel] 100 mg PO HS@209905/07/19 05/07/19 Apixaban [Eliquis] 5 mg PO BID@0900,209901/15/20 01/15/20 Carbidopa-Levodopa 25-100 mg 1 tab PO TID@0900,1300,209901/15/20 01/15/20 [Sinemet 25-100] FLUoxetine HCL [PROzac] 10 mg PO DAILY@89901/15/20 01/15/20 Furosemide [Lasix] 20 mg PO DAILY@0601/15/20 01/15/20 Gabapentin 600 mg PO TID@0900,1300,209901/15/20 01/15/20 Ipratropium/Albuter 20-100Mcg 2 puff INHALATION RT-QID PRN 01/15/20 01/15/20 [Combivent Respimat 20-100Mcg Inhaler] Mag Hydrox/Aluminum Hyd/Simeth 30 ml PO Q4H PRN 01/15/20 01/15/20 [Mylanta Maximum Strength Liq] Potassium Chloride [Klor-Con 10] 20 meq PO DAILY@0900 01/15/20 01/15/20 Psyllium Husk 100% [Metamucil 6 gm PO DAILY PRN 01/15/20 01/15/20 Packet] Sennosides/Docusate Sodium 2 tab PO HS@209901/15/20 01/15/20 [Senna-S 8.6-50 mg Tablet] oxyCODONE HCL/ACETAMINOPHEN 1 tab PO TID@0900,1300,209901/15/20 01/15/20 [Endocet 7.5-325 mg] traZODone HCL 25 mg PO HS@209901/15/20 01/15/20 Previous Rx's Medication Instructions Recorded ALPRAZolam [Xanax] 0.25 mg PO BID@1299,2099 #6 tab 05/12/19 Allergies Allergy/AdvReac Type Severity Reaction Status Date / Time amitriptyline Allergy Unknown Verified 01/15/20 20:48 aspirin Allergy Unknown Verified 01/15/20 20:48 ciprofloxacin [From Cipro] Allergy Unknown Verified 01/15/20 20:48 codeine Allergy Hallucinati Verified 01/15/20 20:48 [From Tylenol-Codeine #3] ons ezetimibe Allergy Unknown Verified 01/15/20 20:48 fluoxetine [From Prozac] Allergy Unknown Verified 01/15/20 20:48 ibuprofen [From Motrin] Allergy Unknown Verified 01/15/20 20:48 indomethacin [From Indocin] Allergy Unknown Verified 01/15/20 20:48 Iodinated Contrast Media Allergy Unknown Verified 01/15/20 20:48 [Iodinated Contrast- Oral and IV Dye] niacin Allergy Unknown Verified 01/15/20 20:48 nitrofurantoin Allergy Unknown Verified 01/15/20 20:48 Penicillins Allergy Anaphylaxis Verified 01/15/20 20:48 pregabalin Allergy Unknown Verified 01/15/20 20:48 Cuxmrrl-Nbj-Vtk Reductase Allergy Unknown Verified 01/15/20 20:48 Inhibitor Sulfa (Sulfonamide AdvReac Nausea & Verified 01/15/20 20:48 Antibiotics) Vomiting & Diarrhea Review of Systems ROS Statement: Those systems with pertinent positive or pertinent negative responses have been documented in the HPI. ROS Other: All systems not noted in ROS Statement are negative. Past Medical History Past Medical History: Coronary Artery Disease (CAD), Cancer, Heart Failure, COPD, CVA/TIA, Hyperlipidemia, Hypertension, Rheumatoid Arthritis (RA), Seizure Disorder, Skin Disorder, Thyroid Disorder, Vascular Disorder Additional Past Medical History / Comment(s): parkinsons History of Any Multi-Drug Resistant Organisms: ESBL, Other MDRO, VRE Date of last positivie culture/infection: 07/18/19 ESBL 12/08/17 VRE MDRO Source:: ESBL/VRE/MDRO URINE Past Surgical History: Appendectomy, Back Surgery, Bowel Resection, Hysterectomy, Joint Replacement, Orthopedic Surgery Additional Past Surgical History / Comment(s): Necktie Turner knee replacement &ion hip replacement. Bone removed and yaquelin placed left leg. Surgery for bowel obstruction x 2. Ion cataracts Past Anesthesia/Blood Transfusion Reactions: No Reported Reaction Past Psychological History: Depression, Panic Disorder Smoking Status: Never smoker Past Alcohol Use History: None Reported Past Drug Use History: None Reported - Past Family History Mother History Unknown: Yes Family Medical History: CVA/TIA Father History Unknown: Yes Additional Family Medical History / Comment(s): father of blot clots 6months after cabg Daughter(s) Family Medical History: Cancer Additional Family Medical History / Comment(s): bone General Exam Limitations: no limitations Course Vital Signs 01/15/20 19:00 Temperature 97.8 F Pulse Rate 78 Respiratory 18 Rate Blood Pressure 162/82 O2 Sat by Pulse 96 Oximetry Medical Decision Making - Lab Data Result diagrams: 01/15/20 19:27 01/15/20 19:27 Lab Results 01/15/20 01/15/20 01/15/20 Range/Units 19:27 19:27 19:27 WBC 5.2 (3.8-10.6) k/uL RBC 3.45 L (3.80-5.40) m/uL Hgb 9.6 L (11.4-16.0) gm/dL Hct 31.5 L (34.0-46.0) % MCV 91.5 (80.0-100.0) fL MCH 27.8 (25.0-35.0) pg MCHC 30.4 L (31.0-37.0) g/dL RDW 16.5 H (11.5-15.5) % Plt Count 346 (150-450) k/uL Neutrophils % (Manual) 33 % Lymphocytes % (Manual) 48 % Monocytes % (Manual) 15 % Eosinophils % (Manual) 4 % Neutrophils # (Manual) 1.72 (1.3-7.7) k/uL Lymphocytes # (Manual) 2.50 (1.0-4.8) k/uL Monocytes # (Manual) 0.78 (0-1.0) k/uL Eosinophils # (Manual) 0.21 (0-0.7) k/uL Nucleated RBCs 0 (0-0) /100 WBC Manual Slide Review Performed Polychromasia Present Hypochromasia Marked Anisocytosis Slight Anisocytosis (manual) Present PT 9.6 (9.0-12.0) sec INR 0.9 (<1.2) APTT 23.3 (22.0-30.0) sec Sodium 136 L (137-145) mmol/L Potassium 4.2 (3.5-5.1) mmol/L Chloride 101 (98-107) mmol/L Carbon Dioxide 28 (22-30) mmol/L Anion Gap 7 mmol/L BUN 26 H (7-17) mg/dL Creatinine 1.07 H (0.52-1.04) mg/dL Est GFR (CKD-EPI)AfAm 60 (>60 ml/min/1.73 sqM) Est GFR (CKD-EPI)NonAf 52 (>60 ml/min/1.73 sqM) Glucose 149 H (74-99) mg/dL Calcium 9.4 (8.4-10.2) mg/dL Disposition Clinical Impression: Back pain Disposition: ADMITTED IP TO THIS HOSP Condition: Fair Referrals: Carolyn Delaney MD [Primary Care Provider] - 1-2 days Decision Time: 21:06
[2020-01-15 19:53] LABS: Calcium 9.4 mg/dL (8.4-10.2); Potassium 4.2 mmol/L (3.5-5.1)
--- NOTE | 2020-01-15 19:58 | XR ---
EXAMINATION TYPE: XR chest 1V DATE OF EXAM: 01/15/2020 COMPARISON: 05/07/2019 HISTORY: Altered mental status. Chest pain after fall TECHNIQUE: FINDINGS: There is no heart failure nor confluent pneumonic infiltrate. Costophrenic angles are clear . There are no hilar masses. There are chest leads. Bony thorax appears intact. IMPRESSION: No active cardiopulmonary disease. No adverse change.
[2020-01-15 20:02] LABS: Anisocytosis Slight; HCT 31.5 % (34.0-46.0); HGB 9.6 gm/dL (11.4-16.0); Hypochromasia Marked; MCH 27.8 pg (25.0-35.0); MCHC 30.4 g/dL (31.0-37.0); MCV 91.5 fL (80.0-100.0); Mean Platelet Volume 8.1; Platelet Count 346 k/uL (150-450); RBC 3.45 m/uL (3.80-5.40); RDW 16.5 % (11.5-15.5); WBC 5.2 k/uL (3.8-10.6)
[2020-01-15 20:11] LABS: INR 0.9 (<1.2); Partial Thromboplastin Time 23.3 sec (22.0-30.0); Prothrombin Time 9.6 sec (9.0-12.0)
--- NOTE | 2020-01-15 20:18 | CT ---
EXAMINATION TYPE: CT thor lumbar spine wo con DATE OF EXAM: 01/15/2020 COMPARISON: None HISTORY: Fall. CT DLP: 919 mGycm Automated exposure control for dose reduction was used. Images were obtained from the level of T1-S1 vertebra without contrast. There is a mid lumbar dextroscoliotic deformity. There is degenerative disc space narrowing in the lo wer lumbar spine at multiple levels. There is no compression fracture. Thoracic spine shows fairly no rmal alignment of the vertebra. There is no thoracic compression fracture. There is no thoracic milla arian mass. The posterior elements are intact in the thoracic spine. There is multilevel posterior fu kandy surgery in the lumbar spine with laminectomy defect. The sacroiliac joints are intact. IMPRESSION: Previous surgery. Lumbar dextroscoliotic deformity. Spondylotic changes. No acute bony abnormality.
--- NOTE | 2020-01-15 20:26 | CT ---
EXAMINATION TYPE: CT brain alejandraine wo con DATE OF EXAM: 01/15/2020 COMPARISON: CT brain 05/07/2019 HISTORY: Fall. Pain CT DLP: 1581.8 mGycm Automated exposure control for dose reduction was used. There is cerebral cortical atrophy. There is no mass effect nor midline shift. There is no sign of in tracranial hemorrhage. The calvarium is intact. There is no evidence of cerebral edema. Skull base is intact. There is normal aeration of the temporal bones. There is mild straightening of the cervical spine. There is mild spondylotic changes from C4 to C7. F acet joints are intact. There is no evidence of cervical spine fracture. IMPRESSION: Cerebral atrophy. No acute intracranial abnormality. No change. Mild degenerative disc changes in the cervical spine. No fracture.
[2020-01-15 20:36] LABS: Anisocytosis (M) Present; Eosinophils # (M) 0.21 k/uL (0-0.7); Monocytes # (M) 0.78 k/uL (0-1.0); Neutrophils # (M) 1.72 k/uL (1.3-7.7); Neutrophils % (M) 33 %; Nucleated Red Blood Cells 0 /100 WBC (0-0); Polychromasia Present; Total Cells Counted 100
[2020-01-15] MEDS ORDERED: NALOXONE 0.4 MG/ML 1 ML VIAL IV PRN (21:06)
[2020-01-15] MEDS ORDERED: ACETAMINOPHEN TAB 325 MG TAB PO PRN (21:07)
[2020-01-15] MEDS ORDERED: DICYCLOMINE 10 MG CAP PO PRN (21:30)
[2020-01-15] MEDS ORDERED: HYDROmorphone 0.5 MG/0.5 ML SYRINGE IVP STA (21:37)
[2020-01-15] MEDS ORDERED: NITROGLYCERIN SL TABS 0.4 MG TAB SUBLINGUAL PRN (22:00)
[2020-01-15] MEDS ORDERED: PSYLLIUM HUSK 100% 6 GM PACKET PO PRN (22:00)
[2020-01-15] MEDS ORDERED: MAG HYDROX/AL HYDROX/SIMETH 30 ML CUP PO PRN (22:30)
[2020-01-15] MEDS ORDERED: IPRATROPIUM-ALBUTEROL 3 ML NEB INHALATION PRN (23:00)
[2020-01-15] MEDS ORDERED: FLUTICASONE 50MCG/SPRAY NASAL 16GM EA NOSTRIL PRN (23:30)
[2020-01-16] MEDS: SODIUM CHLORIDE 0.9% 1,000 ML IV SCH (01:21)
[2020-01-16] MEDS: FUROSEMIDE 20 MG TAB PO SCH (05:06)
[2020-01-16] MEDS: LEVOTHYROXINE 25 MCG TAB PO SCH (05:06)
[2020-01-16] MEDS: SYMBICORT 80-4.5 MCG INHALER INHALATION SCH ×2 (07:51→19:53)
[2020-01-16] MEDS: levETIRAcetam 500 MG TAB PO SCH ×2 (08:00→19:49)
[2020-01-16] MEDS: BACLOFEN 10 MG TAB PO SCH ×3 (08:00→19:56)
[2020-01-16] MEDS: APIXABAN 5 MG TAB PO SCH ×2 (08:00→19:49)
[2020-01-16] MEDS: busPIRone HCl 5 MG TAB PO SCH ×2 (08:00→19:47)
[2020-01-16] MEDS: GABAPENTIN 300 MG CAP PO SCH ×3 (08:00→19:48)
[2020-01-16] MEDS: PANTOPRAZOLE 40 MG TABLET PO SCH (08:00)
[2020-01-16] MEDS: FLUoxetine HCL 10 MG CAP PO SCH (08:00)
[2020-01-16] MEDS: POTASSIUM CHLORIDE ER 20 MEQ TAB.ER PO SCH (08:00)
[2020-01-16] MEDS: LORATADINE 10 MG TAB PO SCH (08:01)
[2020-01-16] MEDS: oxyCODONE-APAP 7.5-325MG 1 EACH TAB PO SCH ×3 (08:01→19:48)
[2020-01-16] MEDS: CARBIDOPA-LEVODOPA 25-100 MG 1 EACH TAB PO SCH ×3 (08:01→19:49)
[2020-01-16] MEDS: atenoloL 25 MG TAB PO SCH (08:01)
[2020-01-16] MEDS: TOFACITINIB CITRATE 11 MG PO SCH (08:02)
[2020-01-16] MEDS ORDERED: SODIUM CHLORIDE 0.65% NASAL SPRAY 44 ML BTL NASAL PRN (09:00)
[2020-01-16] MEDS ORDERED: NON FORMULARY DRUG (Prostat Awc 30 ML) PO SCH (09:00)
[2020-01-16] MEDS: FOLIC ACID 1 MG TAB PO SCH (12:55)
[2020-01-16] MEDS: ALPRAZolam 0.25 MG TAB PO SCH ×2 (12:55→19:49)
--- NOTE | 2020-01-16 14:05 | P.CNOR ---
History of Present Illness - [facility] Consult date: 01/16/20 Requesting physician: Que Aguirre Consult reason: low back pain, other (Right lower extremity radiculopathy) History of present illness: Patient is a pleasant 74-year-old female with a significant medical history who is seen and examined at the bedside for further evaluation for increased low back pain and right lower extremity radiculopathy. Patient resides at [facility] with her . She states she was being lifted with a hoist into the bathroom by care provider who had not used this hoist previously and the patient fell to the floor. She has had exacerbation of her pain since that time. She was brought to [facility] for further evaluation. Patient had multiple CT imaging taken at that time. Patient does have a significant history in regards to her lumbar spine. She states she is undergone 6 surgical interventions at her lumbar spine all performed by Dr. Baron in [place], [place]. She states her last surgery was performed in 2014. At that time, her last surgery was for removal of lumbar hardware. She states under sedation while being transferred to the surgical bed for surgical intervention to remove her lumbar hardware, she was dropped on the floor. She states they proceeded forward with surgical intervention at her lumbar spine at that time. She states the next day following surgical intervention she was unable to get out of bed due to right hip pain. Imaging was taken at that time which showed evidence of a right hip fracture. She subsequently underwent further surgical intervention at her right hip by another orthopedic surgeon at that time. She states approximately a year later her pain became debilitating and she has been basically bedridden over the past 4 years. During the past 4 years she had been able to transfer with assistance to a bedside chair up until this past year. Patient is known to have a history of anal cancer and underwent chemotherapy and radiation. She currently has a wound that is chronically being treated near the anus. She states approximately one year ago she spent 28 days and a chamber to try to help heal her wound. At that time she began to ex perience increased low back pain with pain radiating into her right lower extremity. She states no one would treat her or evaluate her in this regard. Since that time she has developed complete paresthesia and functionality of her right lower extremity. She states she has no sensation in the right lower extremity below the upper most portion of her right thigh with palpation. She cannot perform any active range of motion of the right lower extremity. Her right foot is chronically any foot drop position. She has been on permanent bed rest over the past year since that time. She does admit to permanent indwelling catheter placement. She states today although she has no sensation in her right lower extremity she does feel a deep pain radiating down the posterior portion of her right lower extremity. She also has significant weakness and reduced range of motion with the left lower extremity. She is unable to perform any dorsiflexion or extensor hallucis longus on the left. She also admits to Parkinson's disease and has evidence of bilateral upper extremity and left lower extremity tremor. She states this is managed by her primary care provider. 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 She is not interested in any further surgical intervention at her lumbar spine. An MRI of the lumbar spine has been ordered t hrough the emergency department. Emergency department note states the fall happened approximately [address] Delaney in medicine was concerned about a possible spine injury and had patient transferred to [facility] for further imaging. Patient has not had any change in the function of her lower extremities following the fall in her weakness continues to be chronic. She states her most significant symptom following the fall is the increased back pain with pain into the right posterior thigh. Patient's other past medical history includes coronary artery disease, heart failure, COPD, hyperlipidemia, hypertension, seizure disorder, rheumatoid arth ritis and CVA/TIA. 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 Bone removed and yaquelin placed left leg. Surgery for bowel obstruction x 2. Ion cataracts Past Anesthesia/Blood Transfusion Reactions: No Reported Reaction Past Psychological History: Anxiety, Depression, Panic Disorder Smoking Status: Never smoker Past Alcohol Use History: None Reported Additional Past Alcohol Use History / Comment(s): smoked since age 21, < 1 PPD. states quit smoking 8 months ago Past Drug Use History: None Reported - Past Family History Mother History Unknown: Yes Family Medical History: CVA/TIA Father History Unknown: Yes Additional Family Medical History / Comment(s): father of blot clots 6months after cabg Daughter(s) Family Medical History: Cancer Additional Family Medical History / Comment(s): bone Medications and Allergies Home Medications Medication Instructions Recorded Confirmed Type Baclofen [Lioresal] 10 mg PO TID@0900,1300,2100 02/22/16 01/15/20 History Folic Acid 1 mg PO DAILY@1300 02/22/16 01/15/20 History Levothyroxine Sodium [Synthroid] 25 mcg PO DAILY@0600 02/22/16 01/15/20 History busPIRone HCL 15 mg PO BID@0900,209902/22/16 01/15/20 History levETIRAcetam [Keppra] 500 mg PO BID@0900,2100 02/22/16 01/15/20 History Fluticasone/Vilanterol [Breo 1 puff INHALATION RT-DAILY@0900 05/15/18 01/15/20 History Ellipta 100-25 Mcg Inhaler] Nitroglycerin Sl Tabs [Nitrostat] 0.4 mg SL Q5M PRN 05/15/18 01/15/20 History Acetaminophen Tab [Tylenol] 650 mg PO Q4H PRN 06/13/18 01/15/20 History Fluticasone Nasal [place] [Flonase 1 spray EA NOSTRIL BID PRN 06/13/18 01/15/20 History Nasal [place]] Sodium Chloride [Saline Nasal 2 spray EA NOSTRIL TID PRN 06/13/18 01/15/20 History [place]] Melatonin 10 mg PO HS@209906/14/18 01/15/20 History Tofacitinib Citrate [Xeljanz Xr] 11 mg PO DAILY@0900 08/05/18 01/15/20 History Dicyclomine [Bentyl] 10 mg PO BID PRN 05/07/19 01/15/20 History Loratadine [Claritin] 10 mg PO DAILY@0900 12/26/19 09/04/20 History Pantoprazole Sodium [Protonix] 40 mg PO DAILY@89905/07/19 01/15/20 History Prostat Awc 30 ml PO BID@899,209905/07/19 01/15/20 History atenoloL [Tenormin] 25 mg PO DAILY@89905/07/19 01/15/20 History traZODone HCL [Desyrel] 100 mg PO HS@209905/07/19 01/15/20 History ALPRAZolam [Xanax] 0.25 mg PO BID@1299,2099 #6 tab 05/12/19 01/15/20 Rx Apixaban [Eliquis] 5 mg PO BID@899,209901/15/20 01/15/20 History Carbidopa-Levodopa 25-100 mg 1 tab PO TID@0900,1300,209901/15/20 01/15/20 History [Sinemet 25-100] FLUoxetine HCL [PROzac] 10 mg PO DAILY@89901/15/20 01/15/20 History Furosemide [Lasix] 20 mg PO DAILY@59901/15/20 01/15/20 History Gabapentin 600 mg PO TID@0900,1300,209901/15/20 01/15/20 History Ipratropium/Albuter 20-100Mcg 2 puff INHALATION RT-QID PRN 01/15/20 01/15/20 History [Combivent Respimat 20-100Mcg Inhaler] Mag Hydrox/Aluminum Hyd/Simeth 30 ml PO Q4H PRN 01/15/20 01/15/20 History [Mylanta Maximum Strength Liq] Potassium Chloride [Klor-Con 10] 20 meq PO DAILY@89901/15/20 01/15/20 History Psyllium Husk 100% [Metamucil 6 gm PO DAILY PRN 01/15/20 01/15/20 History Packet] Sennosides/Docusate Sodium 2 tab PO HS@209901/15/20 01/15/20 History [Senna-S 8.6-50 mg Tablet] oxyCODONE HCL/ACETAMINOPHEN 1 tab PO TID@0900,1300,209901/15/20 01/15/20 History [Endocet 7.5-325 mg] traZODone HCL 25 mg PO HS@2100 01/15/20 01/15/20 History Allergies Allergy/AdvReac Type Severity Reaction Status Date / Time amitriptyline Allergy Unknown Verified 01/15/20 20:48 aspirin Allergy Unknown Verified 01/15/20 20:48 ciprofloxacin [From Cipro] Allergy Unknown Verified 01/15/20 20:48 codeine Allergy Hallucinati Verified 01/15/20 20:48 [From Tylenol-Codeine #3] ons ezetimibe Allergy Unknown Verified 01/15/20 20:48 fluoxetine [From Prozac] Allergy Unknown Verified 01/15/20 20:48 ibuprofen [From Motrin] Allergy Unknown Verified 01/15/20 20:48 indomethacin [From Indocin] Allergy Unknown Verified 01/15/20 20:48 Iodinated Contrast Media Allergy Unknown Verified 01/15/20 20:48 [Iodinated Contrast- Oral and IV Dye] niacin Allergy Unknown Verified 01/15/20 20:48 nitrofurantoin Allergy Unknown Verified 01/15/20 20:48 Penicillins Allergy Anaphylaxis Verified 01/15/20 20:48 pregabalin Allergy Unknown Verified 01/15/20 20:48 Pcgeqdx-Hsj-Bau Reductase Allergy Unknown Verified 01/15/20 20:48 Inhibitor Sulfa (Sulfonamide AdvReac Nausea & Verified 01/15/20 20:48 Antibiotics) Vomiting & Diarrhea Physical Examination Physical exam: Patient is awake, alert, and oriented 3 Vital signs stable Adequate chest excursion with deep inspiration and expiration with nasal cannula intact Complete paresthesia with palpation of the right lower extremity Motor strength right lower extremity is 0/5 throughout range of motion Right lower extremity foot in chronic foot drop position Vascular intact bilateral lower extremities Patient is able to lift left lower extremity off the bed but slowly and with difficulty Significant weakness with the left lower extremity with motor strength is 0/5 including dorsiflexion and extensor hallucis longus Patient is able to perform some plantarflexion on the left lower extremity with strength at 3/5 Examination lumbar spine shows very large midline incision along the entire lumbar spine No significant pain with palpation along the lumbar spine Patient has had difficulty with rolling onto her side in bed Evidence of dressing intact over a wound near the anus Permanent indwelling catheter intact Results Pertinent studies: CT of the thoracic and lumbar spine taken on 01/15/2020: No evidence of vertebral body compression fracture: Lumbar scoliotic deformity centered at L3- 4; multilevel lumbar degenerative disc disease; no thoracic compression fracture deformity; evidence of multilevel lumbar fusion with retained interbody devices at L2-3, L4-5, and L5-S1; L3-4 asymmetric degenerative disc disease and lateral listhesis - Labs Labs: Abnormal Lab Results - Last 24 Hours (Table) 01/15/20 01/15/20 Range/Units 19:27 19:27 RBC 3.45 L (3.80-5.40) m/uL Hgb 9.6 L (11.4-16.0) gm/dL Hct 31.5 L (34.0-46.0) % MCHC 30.4 L (31.0-37.0) g/dL RDW 16.5 H (11.5-15.5) % Sodium 136 L (137-145) mmol/L BUN 26 H (7-17) mg/dL Creatinine 1.07 H (0.52-1.04) mg/dL Glucose 149 H (74-99) mg/dL H & H 01/15/20 Range/Units 19:27 Hgb 9.6 L (11.4-16.0) gm/dL Hct 31.5 L (34.0-46.0) % Coagulation 01/15/20 Range/Units 19:27 INR 0.9 (<1.2) Result Diagrams: 01/15/20 19:27 01/15/20 19:27 Assessment and Plan Assessment: Assessment: Low back pain History of chronic low back pain Deep right lower extremity radiculopathy at the posterior thigh Complete loss of strength of the right lower extremity Paresthesia of the right lower extremity Left lower extremity weakness with inability to perform dorsiflexion and extensor hallucis longus Inability to ambulate History of 6 surgical interventions at her lumbar spine including fusion with removal of hardware Retained interbody hardware at L2-3 L4-5, and L5-S1 L3-4 asymmetric degenerative disc disease and lateral listhesis History of right hip fracture status post fall during surgery requiring surgical intervention History bilateral total hip arthroplasty History of anal cancer with treatment with chemotherapy and radiation Parkinson's disease Permanent indwelling catheter intact Bilateral upper extremity and left lower extremity tremor History of coronary artery disease Heart failure COPD Hyperlipidemia Hypertension History of seizure disorder Rheumatoid arthritis History of CVA/TIA (1) Acute exacerbation of chronic low back pain Current Visit: Yes Status: Acute Code(s): M54.5 - LOW BACK PAIN; G89.29 - OTHER CHRONIC PAIN SNOMED Code(s): 990246465 (2) Lumbar back pain with radiculopathy affecting right lower extremity Current Visit: Yes Status: Acute Code(s): M54.16 - RADICULOPATHY, LUMBAR R EGION SNOMED Code(s): 456870189 (3) Right leg paresthesias Current Visit: Yes Status: Acute Code(s): R20.2 - PARESTHESIA OF SKIN SNOMED Code(s): 39472038025333947 (4) Bilateral leg weakness Current Visit: Yes Status: Acute Code(s): R29.898 - OTH SYMPTOMS AND SIGNS INVOLVING THE MUSCULOSKELETAL SYSTEM SNOMED Code(s): 4150837 (5) Unable to ambulate Current Visit: Yes Status: Acute Code(s): R26.2 - DIFFICULTY IN WALKING, NOT ELSEWHERE CLASSIFIED SNOMED Code(s): 143770145 (6) History of lumbar fusion Current Visit: Yes Status: Acute Code(s): Z98.1 - ARTHRODESIS STATUS SNOMED Code(s): 37306460494494 (7) History of bilateral total hip arthroplasty Current Visit: Yes Status: Acute Code(s): Z96.643 - PRESENCE OF ARTIFICIAL HIP JOINT, BILATERAL SNOMED Code(s): 105496230032 (8) Retained orthopedic hardware Current Visit: Yes Status: Acute Code(s): Z96.9 - PRESENCE OF FUNCTIONAL IMPLANT, UNSPECIFIED SNOMED Code(s): 851910836 (9) Spondylolisthesis, lumbar region Current Visit: Yes Status: Acute Code(s): M43.16 - SPONDYLOLISTHESIS, LUMBAR REGION SNOMED Code(s): 790925452204449 (10) Degenerative scoliosis Current Visit: Yes Status: Acute Code(s): M41.50 - OTHER SECONDARY SCOLIOSIS, SITE UNSPECIFIED SNOMED Code(s): 816299791 (11) Lumbar degenerative disc disease Current Visit: Yes Status: Acute Code(s): M51.36 - OTHER INTERVERTEBRAL DISC DEGENERATION, LUMBAR REGION SNOMED Code(s): 59872128 (12) History of rectal or anal cancer Current Visit: Yes Status: Acute Code(s): Z85.048 - PRSNL HX OF MALIG NEOPLM OF RECTUM, RECTOSIG JUNCT, AND ANUS SNOMED Code(s): 678226384 (13) Parkinsons disease Current Visit: Yes Status: Acute Code(s): G20 - PARKINSON'S DISEASE SNOMED Code(s): 67814067 (14) Tremor Current Visit: Yes Status: Acute Code(s): R25.1 - TREMOR, UNSPECIFIED SNOMED Code(s): 04817940 (15) Coronary artery disease Current Visit: Yes Status: Acute Code(s): I25.10 - ATHSCL HEART DISEASE OF [place] CORONARY ARTERY W/O ANG PCTRS SNOMED Code(s): 10201799 (16) COPD (chronic obstructive pulmonary disease) Current Visit: Yes Status: Acute Code(s): J44.9 - CHRONIC OBSTRUCTIVE PULMONARY DISEASE, UNSPECIFIED SNOMED Code(s): 96425746 (17) Heart failure Current Visit: Yes Status: Acute Code(s): I50.9 - HEART FAILURE, UNSPECIFIED SNOMED Code(s): 27030647 (18) Hyperlipidemia Current Visit: Yes Status: Acute Code(s): E78.5 - HYPERLIPIDEMIA, UNSPECIFIED SNOMED Code(s): 58038605 (19) Hypertension Current Visit: Yes Status: Acute Code(s): I10 - ESSENTIAL (PRIMARY) HYPERTENSION SNOMED Code(s): 29787542 (20) History of seizure disorder Current Visit: Yes Status: Acute Code(s): Z86.69 - PERSONAL HISTORY OF DIS OF THE NERVOUS SYS AND SENSE ORGANS SNOMED Code(s): 222994492 (21) Rheumatoid arthritis Current Visit: Yes Status: Acute Code(s): M06.9 - RHEUMATOID ARTHRITIS, UNSPECIFIED SNOMED Code(s): 85191189 (22) History of CVA (cerebrovascular accident) Current Visit: Yes Status: Acute Code(s): Z86.73 - PRSNL HX OF TIA (TIA), AND CEREB INFRC W/O RESID DEFICITS SNOMED Code(s): 541127265 (23) Chronic indwelling Arceo catheter Current Visit: Yes Status: Acute Code(s): Z97.8 - PRESENCE OF OTHER SPECIFIED DEVICES SNOMED Code(s): 586531053 Plan: Plan: 1. After physical examination of the patient, reviewing imaging, and further discussion as to her significant history and current symptoms, we are currently planning continue conservative treatment at this time. Patient has chronic weakness of the bilateral lower extremities with complete paresthesia of the right lower extremity. She states she has been bedridden over the past 4 years and only able to transfer to a bedside chair with assistance. Most recently, she states over the past year she has not been able to get out of bed at all and has remained on permanent bed rest. She has also undergone 6 surgical interventions at her lumbar spine with multilevel fusion. She has a significant medical history as well which includes history of anal cancer with chemotherapy and radiation and currently continues with chronic wound care of a wound near her anus. Patient also has history of Parkinson's disease, coronary artery disease, heart failure, COPD, hyperlipidemia, hypertension, and history of seizure disorder. Given the patient's significant medical diagnoses, chronic conditions in regards to her right lower extremity paresthesia and bilateral lower extremity weakness, history of being bed ridden completely over the past year, history of 6 surgical interventions at her lumbar spine, and no change in her chronic symptoms following her recent fall, we would not plan for any sort of surgical intervention as surgical intervention would most likely not provide any improvement of her chronic conditions and would most likely not provide any significant improvement of recent onset symptoms. Her fall was approximately 5 days ago with some exacerbation of back pain and deep right lower extremity pain in the right posterior thigh since that fall. She does have significant changes at her lumbar spine following CT imaging of the thoracic and lumbar spine. MRI imaging has been ordered for her lumbar spine for further evaluation. We did discuss she could benefit from consultation with pain management to discuss possible treatment options including possibility of injections to help provide better pain control. Patient feels this is a good plan of care and is willing to proceed forward with consultation with pain management. The MRI was ordered through the emergency department as the medical provider at [facility] was concerned about a spinal cord injury. With further discussion with the patient, she has not had any neurological change since the fall other than her exacerbation of chronic low back pain and some pain radiating the right posterior thigh. Patient has a chronic indwelling catheter placed. Patient does not feel she would benefit from surgical intervention at her lumbar spine. At this time we would plan to exhaust all conservative treatment options. We will plan to review her lumbar MRI once his is reviewed. Patient will continue to be seen and examined by other medical providers including medicine for her other multiple medical diagnoses. Consultation will be placed with pain management. Patient feels this is a good plan of care. Time with Patient: Greater than 30 (Including obtaining history, physical examination, reviewing of imaging, and dictation.)
--- NOTE | 2020-01-16 15:35 | MR ---
EXAMINATION TYPE: MR lumbar spine wo con DATE OF EXAM: 01/16/2020 COMPARISON: 02/05/2011 HISTORY: Left leg weakness Multiplanar multiecho imaging of the lumbar spine was performed with no contrast. There is multilevel posterior fusion surgery with metal artifact. There is been apparent revision of the surgery compared to old exam. I see no evidence of lumbar spinal stenosis. There is large spinal canal and multilevel laminectomy defect. There is no lumbar paraspinal mass. There is lumbar dextrosc oliotic deformity. There is remained 3 disc at S1-S2. There is slight loss of height of L3 and L4 nadiya tebra of approximately 10%. I see no focal bone destruction. IMPRESSION: Multilevel spondylotic changes with disc space narrowing and slight compression deformities. No acute fracture seen. Mild dextroscoliosis probably slightly worse than old MR scan. No spinal stenosis. I see no evidence of acute bony abnormality.
--- NOTE | 2020-01-16 18:35 | P.HPIM ---
History of Present Illness H&P Date: 01/16/20 ED course: 74-year-old female with chronic back injuries, multiple back surgeries and chronic right lower extremity numbness and weakness presents with fall from shower hoist 4 days ago. She was sent in by Jorge franks who was concerned about traumatic back injury. She has indwelling Arceo catheter. She also has history of radiation to the anus and is incontinent to stool chronicall y. EKG shows atrial flutter which was not apparent on previous EKG however patient's currently on Elavil course and is rate controlled. Laboratory evaluation obtained. CBC is unremarkable. Coag panel is negative. Metabolic panel is negative. Computed tomography scan of the head and C-spine was obtained showing no acute processes. Thoracic and lumbar CT shows previous surgery with no acute bony abnormality. I did discussed patient case further with Dr. Delaney. I did mention to him that patient reports that she has had weakness in her right leg for 4 months. PCP is requested to admission and evaluation by a spinal surgeon and to get an urgent MRI; MRI team was contacted by ER physician and the will be able to take patient for MRI tomorrow. Patient to be evaluated by orthopedic surgery. Review of Systems REVIEW OF SYSTEMS: CONSTITUTIONAL: No fever, no malaise, no fatigue. HEENT: No recent visual problems or hearing problems. Denied any sore throat. CARDIOVASCULAR: No chest pain, orthopnea, PND, no palpitations, no syncope. PULMONARY: No shortness of breath, no cough, no hemoptysis. GASTROINTESTINAL: No diarrhea, no nausea, no vomiting, no abdominal pain. NEUROLOGICAL: No headaches, no weakness, no numbness. HEMATOLOGICAL: Denies any bleeding or petechiae. GENITOURINARY: Denies any burning micturition, frequency, or urgency. MUSCULOSKELETAL/RHEUMATOLOGICAL: Denies any joint pain, swelling, or any muscle pain. ENDOCRINE: Denies any polyuria or polydipsia. The rest of the 14-point review of systems is negative. 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 Bone removed and yaquelin placed left leg. Surgery for bowel obstruction x 2. Lyly cataracts Past Anesthesia/Blood Transfusion Reactions: No Reported Reaction Past Psychological History: Anxiety, Depression, Panic Disorder Smoking Status: Never smoker Past Alcohol Use History: None Reported Additional Past Alcohol Use History / Comment(s): smoked since age 21, < 1 PPD. states quit smoking 8 months ago Past Drug Use History: None Reported - Past Family History Mother History Unknown: Yes Family Medical History: CVA/TIA Father History Unknown: Yes Additional Family Medical History / Comment(s): father of blot clots 6months after cabg Daughter(s) Family Medical History: Cancer Additional Family Medical History / Comment(s): bone Medications and Allergies Home Medications Medication Instructions Recorded Confirmed Type Baclofen [Lioresal] 10 mg PO TID@0900,1300,2100 02/22/16 01/15/20 History Folic Acid 1 mg PO DAILY@1300 02/22/16 01/15/20 History Levothyroxine Sodium [Synthroid] 25 mcg PO DAILY@0600 02/22/16 01/15/20 History busPIRone HCL 15 mg PO BID@0900,2100 02/22/16 01/15/20 History levETIRAcetam [Keppra] 500 mg PO BID@0900,2100 02/22/16 01/15/20 History Fluticasone/Vilanterol [Breo 1 puff INHALATION RT-DAILY@0900 05/15/18 01/15/20 History Ellipta 100-25 Mcg Inhaler] Nitroglycerin Sl Tabs [Nitrostat] 0.4 mg SL Q5M PRN 05/15/18 01/15/20 History Acetaminophen Tab [Tylenol] 650 mg PO Q4H PRN 06/13/18 01/15/20 History Fluticasone Nasal [employer] [place] [Flonase 1 spray EA NOSTRIL BID PRN 06/13/18 01/15/[address] Nasal [employer] [place]] Sodium Chloride [Saline Nasal 2 spray EA NOSTRIL TID PRN 06/13/18 01/15/[address] [place]] Melatonin 10 mg PO HS@209906/14/18 01/15/20 History Tofacitinib Citrate [Xeljanz Xr] 11 mg PO DAILY@89908/05/18 01/15/20 History Dicyclomine [Bentyl] 10 mg PO BID PRN 05/07/19 01/15/20 History Loratadine [Claritin] 10 mg PO DAILY@89905/07/19 01/15/20 History Pantoprazole Sodium [Protonix] 40 mg PO DAILY@89905/07/19 01/15/20 History Prostat Awc 30 ml PO BID@899,209905/07/19 01/15/20 History atenoloL [Tenormin] 25 mg PO DAILY@89905/07/19 01/15/20 History traZODone HCL [Desyrel] 100 mg PO HS@209905/07/19 01/15/20 History ALPRAZolam [Xanax] 0.25 mg PO BID@1299,2099 #6 tab 05/12/19 01/15/20 Rx Apixaban [Eliquis] 5 mg PO BID@899,209901/15/20 01/15/20 History Carbidopa-Levodopa 25-100 mg 1 tab PO TID@00,1300,209901/15/20 01/15/20 History [Sinemet 25-100] FLUoxetine HCL [PROzac] 10 mg PO DAILY@89901/15/20 01/15/20 History Furosemide [Lasix] 20 mg PO DAILY@59901/15/20 01/15/20 History Gabapentin 600 mg PO TID@0900,1300,209901/15/20 01/15/20 History Ipratropium/Albuter 20-100Mcg 2 puff INHALATION RT-QID PRN 01/15/20 01/15/20 History [Combivent Respimat 20-100Mcg Inhaler] Mag Hydrox/Aluminum Hyd/Simeth 30 ml PO Q4H PRN 01/15/20 01/15/20 History [Mylanta Maximum Strength Liq] Potassium Chloride [Klor-Con 10] 20 meq PO DAILY@89901/15/2020 History Psyllium Husk 100% [Metamucil 6 gm PO DAILY PRN 01/15/20 01/15/20 History Packet] Sennosides/Docusate Sodium 2 tab PO HS@209901/15/20 01/15/20 History [Senna-S 8.6-50 mg Tablet] oxyCODONE HCL/ACETAMINOPHEN 1 tab PO TID@0900,1300,209901/15/20 01/15/20 History [Endocet 7.5-325 mg] traZODone HCL 25 mg PO HS@209901/15/20 01/15/20 History Allergies Allergy/AdvReac Type Severity Reaction Status Date / Time amitriptyline Allergy Unknown Verified 01/15/20 20:48 aspirin Allergy Unknown Verified 01/15/20 20:48 ciprofloxacin [From Cipro] Allergy Unknown Verified 01/15/20 20:48 codeine Allergy Hallucinati Verified 01/15/20 20:48 [From Tylenol-Codeine #3] ons ezetimibe Allergy Unknown Verified 01/15/20 20:48 fluoxetine [From Prozac] Allergy Unknown Verified 01/15/20 20:48 ibuprofen [From Motrin] Allergy Unknown Verified 01/15/20 20:48 indomethacin [From Indocin] Allergy Unknown Verified 01/15/20 20:48 Iodinated Contrast Media Allergy Unknown Verified 01/15/20 20:48 [Iodinated Contrast- Oral and IV Dye] niacin Allergy Unknown Verified 01/15/20 20:48 nitrofurantoin Allergy Unknown Verified 01/15/20 20:48 Penicillins Allergy Anaphylaxis Verified 01/15/20 20:48 pregabalin Allergy Unknown Verified 01/15/20 20:48 Vllsuah-Agj-Hlv Reductase Allergy Unknown Verified 01/15/20 20:48 Inhibitor Sulfa (Sulfonamide AdvReac Nausea & Verified 01/15/20 20:48 Antibiotics) Vomiting & Diarrhea Physical Exam Vitals: Vital Signs Temp Pulse Pulse Resp BP BP Pulse Ox 01/16/20 05:59 98.3 F 72 16 137/73 95 01/16/20 00:34 97.7 F 74 17 110/71 96 01/15/20 22:36 97.6 F 76 18 118/71 94 L 01/15/20 21:10 64 18 122/80 95 01/15/20 19:00 97.8 F 78 18 162/82 96 Intake and Output 01/15/20 01/16/20 01/16/20 22:59 06:59 14:59 Intake Total 180 Output Total 1100 Balance -920 Intake: Intake, IV Titration 120 Amount Sodium Chloride 0.9% 1, 120 000 ml @ 20 mls/hr IV . Q24H [facility] Rx#:[id number] Oral 60 Output: Urine 1100 Other: Voiding Method Indwelling Catheter Indwelling Catheter Weight 83.461 kg 83.461 kg General Impression: Alert and oriented x3, not in acute distress HEENT: Normocephalic atraumatic, extra-ocular movements intact, pupils equal and reactive to light bilaterally, mucous membranes moist. Cardiovascular: Heart regular rate and rhythm Chest: Able to complete full sentences, no retractions, no tachypnea Abdomen: abdomen soft, non-tender, non-distended, no organomegaly Musculoskeletal: Pulses present and equal in all extremities, no peripheral geovanna a Neurological: CN II-XII grossly intact, tremulous, last process of the right lower extremity, 2+ weakness in the left lower extremity. She does not have any sensory to painful stimuli at about the mid thigh level, no clonus, no knee hyperreflexia Skin: Intact with no visualized rashes Results CBC & Chem 7: 01/15/20 19:27 01/15/20 19:27 Labs: Abnormal Lab Results - Last 24 Hours (Table) 01/15/20 01/15/20 Range/Units 19:27 19:27 RBC 3.45 L (3.80-5.40) m/uL Hgb 9.6 L (11.4-16.0) gm/dL Hct 31.5 L (34.0-46.0) % MCHC 30.4 L (31.0-37.0) g/dL RDW 16.5 H (11.5-15.5) % Sodium 136 L (137-145) mmol/L BUN 26 H (7-17) mg/dL Creatinine 1.07 H (0.52-1.04) mg/dL Glucose 149 H (74-99) mg/dL Thrombosis Risk Factor Assmnt - Choose All That Apply Each Factor Represents 1 point: Obesity (BMI >25) Each Risk Factor Represents 2 Points: Age 61-74 years Thrombosis Risk Factor Assessment Total Risk Factor Score: 3 Thrombosis Risk Factor Assessment Level: Moderate Risk Assessment and Plan Assessment: 1. Acute exacerbation of chronic back pain - Patient has been evaluated by orthopedic surgery with plans for conservative treatment; patient has chronic weakness of bilateral lower extremities with complete paresthesia of right lower extremity; given patient's complicated med ical history and chronicity of the condition orthopedic recommending to continue conservative treatment and monitor closely; patient will not benefit from surgical intervention of her lumbar spine 2. Acute renal injury; continue with IV fluid hydration; monitor strict LAURENT's, daily weights, renal function and electrolytes; avoid nephrotoxins and hypotension 3. Anemia; possibly chronic; monitor H&H closely. Hemoglobin stabilized 4. Hypothyroidism; levothyroxin 25 MCG daily 8. Seizure disorder; Keppra 500 mg 2 twice a day 9. COPD/asthma; 301 puff twice a day; Combivent resting met 08352 MCG 2 puffs 4 times a day DVT prophylaxis; SCDs CODE STATUS; full code
[2020-01-16] MEDS: traZODone HCL 50 MG TAB PO SCH ×3 (19:49→20:17)
[2020-01-17] MEDS: SODIUM CHLORIDE 0.9% 1,000 ML IV SCH ×2 (00:24→21:16)
[2020-01-17] MEDS: MELATONIN 5 MG TABLET PO SCH ×2 (00:25→20:33)
[2020-01-17] MEDS: SENNOSIDES-DOCUSATE SODIUM 1 EACH TAB PO SCH ×2 (00:25→20:34)
[2020-01-17] MEDS: FUROSEMIDE 20 MG TAB PO SCH (05:30)
[2020-01-17] MEDS: LEVOTHYROXINE 25 MCG TAB PO SCH (05:30)
[2020-01-17] MEDS: SYMBICORT 80-4.5 MCG INHALER INHALATION SCH ×2 (07:40→21:03)
[2020-01-17] MEDS: TOFACITINIB CITRATE 11 MG PO SCH (08:24)
[2020-01-17] MEDS: APIXABAN 5 MG TAB PO SCH ×2 (08:29→20:35)
[2020-01-17] MEDS: GABAPENTIN 300 MG CAP PO SCH ×3 (08:30→20:33)
[2020-01-17] MEDS: atenoloL 25 MG TAB PO SCH (08:30)
[2020-01-17] MEDS: PANTOPRAZOLE 40 MG TABLET PO SCH (08:30)
[2020-01-17] MEDS: CARBIDOPA-LEVODOPA 25-100 MG 1 EACH TAB PO SCH ×3 (08:30→20:35)
[2020-01-17] MEDS: LORATADINE 10 MG TAB PO SCH (08:30)
[2020-01-17] MEDS: oxyCODONE-APAP 7.5-325MG 1 EACH TAB PO SCH ×3 (08:30→20:34)
[2020-01-17] MEDS: busPIRone HCl 5 MG TAB PO SCH ×2 (08:30→20:34)
[2020-01-17] MEDS: BACLOFEN 10 MG TAB PO SCH ×3 (08:30→20:35)
[2020-01-17] MEDS: FLUoxetine HCL 10 MG CAP PO SCH (08:30)
[2020-01-17] MEDS: POTASSIUM CHLORIDE ER 20 MEQ TAB.ER PO SCH (08:30)
[2020-01-17] MEDS: levETIRAcetam 500 MG TAB PO SCH ×2 (08:30→20:35)
--- NOTE | 2020-01-17 10:09 | P.PN ---
Progress Note - Text Progress Note Date: 01/17/20 Patient is seen and examined today at bedside. Overall she feels her status is unchanged. She denies new pain. She denies any shortness of breath or chest pain. She has pain at her lower back extending up toward her midback. She's been afebrile overnight. She has very little motion in her legs. She does not move her right leg and has small motion at the left. Her thighs and calves soft nontender. Her abdomen soft nontender. The new MRI from yesterday of her lumbar spine is reviewed. It shows evidence of prior multilevel decompression and fusion. The hardware has been removed. There is wide decompression from L2 to S1. There does not appear to be acute new fracture. I do not see any evidence of new stenosis or new herniation. There is no apparent spinal mass or erosions. Assessment and plan Chronic low back pain and lower extremity weakness with history of multiple surgeries performed with Dr. 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 History of rectal cancer MRI does not show any new stenosis or erosion or masses. There is no evidence of new fracture at the lumbar spine. She has chronic conditions and is a nonambulator. I do not think that she requires any acute surgical intervention or stabilization at this point. It is okay for her to try to resume her mobilization with physical therapy and to use devices as needed for changing positions and bathing. We do not plan any surgical intervention. She has had a long history of spinal surgeries and if she requires further spinal treatment she would do best to refer back to Dr. Baron who performed her prior 6 surgeries.
[2020-01-17] MEDS: ALPRAZolam 0.25 MG TAB PO SCH ×2 (13:05→20:34)
[2020-01-17] MEDS: FOLIC ACID 1 MG TAB PO SCH (13:05)
[2020-01-17 14:32] LABS: Calcium 9.3 mg/dL (8.4-10.2); Potassium 4.4 mmol/L (3.5-5.1)
[2020-01-17 14:50] LABS: Anisocytosis Slight; HGB 9.8 gm/dL (11.4-16.0); Hypochromasia Marked; MCH 27.7 pg (25.0-35.0); MCHC 29.8 g/dL (31.0-37.0); MCV 93.2 fL (80.0-100.0); Mean Platelet Volume 7.8; Platelet Count 336 k/uL (150-450); RBC 3.54 m/uL (3.80-5.40); RDW 16.1 % (11.5-15.5); WBC 6.9 k/uL (3.8-10.6)
[2020-01-17 15:42] LABS: Band Neutrophils % 1 %; Eosinophils # (M) 0.21 k/uL (0-0.7); Lymphocytes # (M) 0.62 k/uL (1.0-4.8); Monocytes # (M) 0.48 k/uL (0-1.0); Neutrophils % (M) 81 %; Nucleated Red Blood Cells 0 /100 WBC (0-0); Total Cells Counted 200
[2020-01-17 17:08] LABS: Appearance,Urine Cloudy (Clear); Bacteria,Urine Occasional /hpf; Bilirubin,Urine Negative (Negative); Blood,Urine Large (Negative); Color,Urine Yellow; Glucose,Urine (UA) Negative (Negative); Hyaline Casts,Urine 16 /lpf (0-2); Ketones,Urine Negative (Negative); Leukocyte Esterase,Urine Moderate (Negative); Mucus,Urine Rare /hpf; Nitrite,Urine Negative (Negative); Protein,Urine 2+ (Negative); RBC,Urine >182 /hpf (0-5); Specific Gravity,Urine 1.022 (1.001-1.035); Squamous Epithelial Cell,Urine 2 /hpf (0-4); Urobilinogen,Urine <2.0 mg/dL (<2.0); WBC,Urine 32 /hpf (0-5)
--- NOTE | 2020-01-17 18:06 | P.PN ---
Subjective Progress Note Date: 01/17/20 Principal diagnosis: Acute exacerbation of chronic back pain Acute renal injury Anemia 74-year-old female with chronic back injuries, multiple back surgeries and chronic right lower extremity numbness and weakness presents with fall from shower hoist 4 days ago. She was sent in by [facility] who was concerned about traumatic back injury. She has indwelling Arceo catheter. She also has history of radiation to the anus and is incontinent to stool chronically. EKG shows atrial flutter which was not apparent on previous EKG however patient's currently on Elavil course and is rate controlled. Laboratory evaluation obtained. CBC is unremarkable. Coag panel is negative. Metabolic panel is negative. Computed tomography scan of the head and C-spine was obtained showing no acute processes. Thoracic and lumbar CT shows previous surgery with no acute bony abnormality. I did discussed patient case further with Dr. Delaney. I did mention to him that patient reports that she has had weakness in her right leg for 4 months. PCP is requested to admission and evaluation by a spinal surgeon and to get an urgent MRI 01/17/2020 Patient is seen and evaluated in room at bedside; continues to complain of lower back pain extending to mid back area; MRI is done and does not show any new stenosis or masses; no evidence of new fracture lumbar spine; orthopedic surgeries following and deemed patient not in any need for acute surgical intervention or stabilization; orthopedic is recommending increasing mobilization with physical therapy and to use devices needed for activity; patient continues to require pain medications; IV steroids for a short course along with muscle relaxers and monitor closely Objective - Vital Signs Vital signs: Vital Signs Temp 97.7 F 01/17/20 11:34 Pulse 74 01/17/20 11:34 Resp 16 01/17/20 11:34 BP 107/68 01/17/20 11:34 Pulse Ox 93 L 01/17/20 11:34 Intake & Output 01/16/20 01/17/20 01/17/20 18:59 06:59 18:59 Intake Total 160 Output Total 700 Balance 160 -700 Intake: Intake, IV Titration 160 Amount Sodium Chloride 0.9% 1, 160 000 ml @ 20 mls/hr IV . Q24H [facility] Rx#:[id number] Output: Urine 700 Other: Voiding Method Indwelling Catheter Indwelling Catheter Indwelling Catheter # Bowel Movements 0 0 - Exam - Constitutional General appearance: Present: average body habitus, cooperative, no acute distress - EENT Eyes: Present: anicteric sclerae, EOMI, PERRLA, normal appearance ENT: Present: hearing grossly normal, normal oropharynx Ears: bilateral: normal - Neck Neck: Present: normal ROM. Absent: lymphadenopathy, rigidity, thyromegaly Carotids: negative: bruit present Thyroid: bilateral: normal size, negative: enlarged, nodule - Respiratory Respiratory: bilateral: CTA, negative: rales, rhonchi, wheezing - Cardiovascular Rhythm: regular Heart sounds: normal: S1, S2 Abnormal Heart Sounds: Absent: systolic murmur, diastolic murmur - Gastrointestinal General gastrointestinal: Present: normal bowel sounds, soft. Absent: distended, organomegaly, tenderness - Genitourinary Genitourinary Comment(s): deferred - Integumentary Integumentary: Present: normal turgor. Absent: jaundiced, rash, ulcer - Neurologic Neurologic: Present: CNII-XII intact. Absent: focal deficits - Musculoskeletal Musculoskeletal: Present: gait normal, strength equal bilaterally - Psychiatric Psychiatric: Present: A&O x's 3, appropriate affect, intact judgment & insight - Labs CBC & Chem 7: 01/17/20 13:57 01/17/20 13:57 Assessment and Plan Assessment: 1. Acute exacerbation of chronic back pain - Patient has been evaluated by orthopedic surgery with plans for conservative treatment; patient has chronic weakness of bilateral lower extremities with complete paresthesia of right lower extremity; given patient's complicated medical history and chronicity of the condition orthopedic recommending to continue conservative treatment and monitor closely; patient will not benefit from surgical intervention of her lumbar spine 2. Acute renal injury; continue with IV fluid hydration; monitor strict LAURENT's, daily weights, renal function and electrolytes; avoid nephrotoxins and hypotension 3. Anemia; possibly chronic; monitor H&H closely. Hemoglobin stabilized 4. Hypothyroidism; levothyroxin 25 MCG daily 8. Seizure disorder; Keppra 500 mg 2 twice a day 9. COPD/asthma; 301 puff twice a day; Combivent [place] met 75327 MCG 2 puffs 4 times a day DVT prophylaxis; SCDs CODE STATUS; full code
[2020-01-17] MEDS: methylPREDNISolone SOD SUCCI 40 MG/ML 1 ML VIAL IV SCH (20:35)
[2020-01-17] MEDS: traZODone HCL 50 MG TAB PO SCH (20:35)
[2020-01-18] MEDS: LEVOTHYROXINE 25 MCG TAB PO SCH (06:00)
[2020-01-18] MEDS: FUROSEMIDE 20 MG TAB PO SCH (06:00)
[2020-01-18 07:04] LABS: Anisocytosis Slight; Basophils % (A) 0 %; Eosinophils % (A) 0 %; HCT 33.2 % (34.0-46.0); HGB 9.9 gm/dL (11.4-16.0); Hypochromasia Marked; Lymphocytes # (A) 0.5 k/uL (1.0-4.8); Lymphocytes % (A) 7 %; MCH 27.5 pg (25.0-35.0); MCHC 29.8 g/dL (31.0-37.0); MCV 92.1 fL (80.0-100.0); Mean Platelet Volume 8.2; Monocytes # (A) 0.2 k/uL (0-1.0); Monocytes % (A) 3 %; Neutrophils # (A) 6.4 k/uL (1.3-7.7); Neutrophils % (A) 89 %; Platelet Count 330 k/uL (150-450); RDW 16.3 % (11.5-15.5); WBC 7.2 k/uL (3.8-10.6)
[2020-01-18] MEDS: SYMBICORT 80-4.5 MCG INHALER INHALATION SCH ×2 (07:26→20:19)
[2020-01-18 07:30] LABS: Calcium 9.7 mg/dL (8.4-10.2); Potassium 4.7 mmol/L (3.5-5.1)
[2020-01-18] MEDS: TOFACITINIB CITRATE 11 MG PO SCH (08:41)
[2020-01-18] MEDS: methylPREDNISolone SOD SUCCI 40 MG/ML 1 ML VIAL IV SCH ×2 (08:44→21:29)
[2020-01-18] MEDS: PANTOPRAZOLE 40 MG TABLET PO SCH (08:45)
[2020-01-18] MEDS: busPIRone HCl 5 MG TAB PO SCH ×2 (08:45→21:28)
[2020-01-18] MEDS: BACLOFEN 10 MG TAB PO SCH ×3 (08:45→21:27)
[2020-01-18] MEDS: CARBIDOPA-LEVODOPA 25-100 MG 1 EACH TAB PO SCH ×3 (08:45→21:27)
[2020-01-18] MEDS: POTASSIUM CHLORIDE ER 20 MEQ TAB.ER PO SCH (08:45)
[2020-01-18] MEDS: APIXABAN 5 MG TAB PO SCH ×2 (08:45→21:28)
[2020-01-18] MEDS: GABAPENTIN 300 MG CAP PO SCH ×3 (08:45→21:28)
[2020-01-18] MEDS: FLUoxetine HCL 10 MG CAP PO SCH (08:45)
[2020-01-18] MEDS: oxyCODONE-APAP 7.5-325MG 1 EACH TAB PO SCH ×3 (08:45→21:31)
[2020-01-18] MEDS: atenoloL 25 MG TAB PO SCH (08:45)
[2020-01-18] MEDS: LORATADINE 10 MG TAB PO SCH (08:45)
[2020-01-18] MEDS: levETIRAcetam 500 MG TAB PO SCH ×2 (08:45→21:27)
[2020-01-18] MEDS: ALPRAZolam 0.25 MG TAB PO SCH ×2 (14:39→21:28)
[2020-01-18] MEDS: FOLIC ACID 1 MG TAB PO SCH (14:41)
[2020-01-18 17:17] LABS: Glucose,Whole Blood 215 mg/dL (75-99)
[2020-01-18] MEDS: INSULIN ASPART (NovoLOG) 100 UNIT/ML VIAL SQ SCH ×2 (18:01→21:29)
[2020-01-18 20:28] LABS: Glucose,Whole Blood 244 mg/dL (75-99)
[2020-01-18] MEDS: traZODone HCL 50 MG TAB PO SCH (21:27)
[2020-01-18] MEDS: MELATONIN 5 MG TABLET PO SCH (21:28)
[2020-01-18] MEDS: SENNOSIDES-DOCUSATE SODIUM 1 EACH TAB PO SCH (21:28)
--- NOTE | 2020-01-19 01:52 | PN ---
PROGRESS NOTE DATE OF SERVICE: 01/18/2020 This 74-year-old woman who was admitted with acute on chronic back pain. The patient apparently had previous surgery from [place] by Dr. Alejo. The patient also had chronic weakness of both lower legs. Patient also had renal failure on admission. The creatinine was found to be 1.07, improved to 1.03 at this time. The urine also is slightly cloudy. The patient being closely monitored. The hemoglobin is 9.9. PAST MEDICAL HISTORY: Reviewed. REVIEW OF SYSTEMS: CARDIOVASCULAR SYSTEM: No angina. RESPIRATORY SYSTEM: As mentioned earlier. GI: As mentioned earlier. : As mentioned earlier. NERVOUS SYSTEM: No numbness or weakness. CURRENT MEDICATIONS: Current medications are: Tylenol p.r.n., Maalox, DuoNeb q.i.d. and p.r.n., Xanax, Eliquis, Lioresal, Symbicort, Sinemet, Bentyl, Prozac, Flonase, folic acid, Lasix, Neurontin, Keppra, Synthroid, Claritin, Solu-Medrol, Narcan, Nitrostat, Percocet, Protonix, K-Dur, Metamucil, Desyrel. PHYSICAL EXAMINATION: Patient is alert and oriented x3. Pulse is 82, blood pressure 121/64, respiration 18, temperature 97.5, pulse ox 92% on 3 L. HEENT: Conjunctivae normal. Oral mucosa moist. NECK: No jugular venous distention. No carotid bruit. No lymph node enlargement. CARDIOVASCULAR: S1, S2 muffled. No S3, no S4. RESPIRATORY: Breath sounds diminished at the bases. A few scattered rhonchi and crackles. ABDOMEN: Soft, nontender. LEGS: No edema, no swelling. NERVOUS SYSTEM: No focal deficits. LABS: WBC 7.2, hemoglobin 9.9, sodium 139, potassium 4.7. UA noted. ASSESSMENT: 1. Severe acute on chronic low back pain with severe gait dysfunction with failure of outpatient treatment. 2. Acute kidney failure with prerenal acute renal factors. 3. Anemia chronic of chronic disease. 4. Hyponatremia, mild. 5. Obesity with body mass index 32.6. 6. History of coronary artery disease. 7. History of congestive heart failure. 8. History of chronic obstructive pulmonary disease. 9. Cerebrovascular accident, transient ischemic attack. 10.Hypertension. 11.Hyperlipidemia. 12.Rheumatoid arthritis. 13.Seizure disorder. 14.Hypothyroidism. 15.History of Parkinson's. 16.History of ESBL. 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 18.History of Pseudomonas. 19.History of appendectomy. 20.History of back surgery. 21.Anxiety, depression. 22.FULL CODE. RECOMMENDATIONS AND DISCUSSION: Recommend to continue current medications, continue symptomatic treatment. Patient is on apixaban. Patient is on bronchodilators. The patient is also on IV steroids. Recommend Accu-Cheks a.c. and at bedtime and scale also at this time. Otherwise, PT,OT evaluation, possible ECF rehab. Orthopedic evaluation input appreciated. Guarded prognosis. Further recommendations to follow. DVT prophylaxis. RIAZ / KAYLEY: [id number] /
[2020-01-19] MEDS: traZODone HCL 50 MG TAB PO SCH (05:25)
[2020-01-19] MEDS: FUROSEMIDE 20 MG TAB PO SCH (06:15)
[2020-01-19] MEDS: LEVOTHYROXINE 25 MCG TAB PO SCH (06:15)
[2020-01-19] MEDS: SYMBICORT 80-4.5 MCG INHALER INHALATION SCH (07:11)
[2020-01-19 07:13] LABS: Glucose,Whole Blood 184 mg/dL (75-99)
[2020-01-19] MEDS: BACLOFEN 10 MG TAB PO SCH ×2 (08:12→13:01)
[2020-01-19] MEDS: APIXABAN 5 MG TAB PO SCH (08:12)
[2020-01-19] MEDS: GABAPENTIN 300 MG CAP PO SCH ×2 (08:12→13:01)
[2020-01-19] MEDS: PANTOPRAZOLE 40 MG TABLET PO SCH (08:12)
[2020-01-19] MEDS: busPIRone HCl 5 MG TAB PO SCH (08:13)
[2020-01-19] MEDS: methylPREDNISolone SOD SUCCI 40 MG/ML 1 ML VIAL IV SCH (08:13)
[2020-01-19] MEDS: SODIUM CHLORIDE 0.9% 1,000 ML IV SCH (08:13)
[2020-01-19] MEDS: LORATADINE 10 MG TAB PO SCH (08:13)
[2020-01-19] MEDS: CARBIDOPA-LEVODOPA 25-100 MG 1 EACH TAB PO SCH ×2 (08:13→13:01)
[2020-01-19] MEDS: levETIRAcetam 500 MG TAB PO SCH (08:14)
[2020-01-19] MEDS: FLUoxetine HCL 10 MG CAP PO SCH (08:14)
[2020-01-19] MEDS: atenoloL 25 MG TAB PO SCH (08:14)
[2020-01-19] MEDS: POTASSIUM CHLORIDE ER 20 MEQ TAB.ER PO SCH (08:14)
[2020-01-19] MEDS: TOFACITINIB CITRATE 11 MG PO SCH (08:15)
[2020-01-19] MEDS: INSULIN ASPART (NovoLOG) 100 UNIT/ML VIAL SQ SCH ×2 (08:15→13:01)
[2020-01-19] MEDS: oxyCODONE-APAP 7.5-325MG 1 EACH TAB PO SCH (08:20)
[2020-01-19 08:26] LABS: Anisocytosis Slight; Basophils % (A) 0 %; Eosinophils % (A) 0 %; HCT 32.3 % (34.0-46.0); HGB 9.9 gm/dL (11.4-16.0); Hypochromasia Marked; Lymphocytes # (A) 0.6 k/uL (1.0-4.8); Lymphocytes % (A) 5 %; MCH 27.9 pg (25.0-35.0); MCHC 30.5 g/dL (31.0-37.0); MCV 91.6 fL (80.0-100.0); Mean Platelet Volume 8.1; Monocytes # (A) 0.6 k/uL (0-1.0); Monocytes % (A) 5 %; Neutrophils % (A) 87 %; Platelet Count 360 k/uL (150-450); RBC 3.53 m/uL (3.80-5.40); RDW 16.1 % (11.5-15.5); WBC 11.5 k/uL (3.8-10.6)
[2020-01-19 08:33] LABS: Calcium 9.5 mg/dL (8.4-10.2); Potassium 4.7 mmol/L (3.5-5.1)
[2020-01-19 11:48] LABS: Glucose,Whole Blood 147 mg/dL (75-99)
[2020-01-19] MEDS: ALPRAZolam 0.25 MG TAB PO SCH (13:01)
[2020-01-19] MEDS: FOLIC ACID 1 MG TAB PO SCH (13:01)
--- NOTE | 2020-01-19 13:03 | P.DS ---
Providers Date of admission: 01/19/20 06:43 Expected date of discharge: 01/19/20 Attending physician: Carolyn Delaney Consults: 01/15/20 21:07 Consult Physician Routine Consulting Provider: Juno Neely Consult Reason/Comments: back pain Do you want consulting provider notified?: Yes Primary care physician: Carolyn Delaney Hospital Course: 74-year-old female with chronic back injuries, multiple back surgeries and chronic right lower extremity numbness and weakness presents with fall from shower hoist 4 days ago. She was sent in by [facility] doctor who was concerned about traumatic back injury. She has indwelling Arceo catheter. She also has history of radiation to the anus and is incontinent to stool chronically. EKG shows atrial flutter which was not apparent on previous EKG however patient's currently on Elavil course and is rate controlled. Laboratory evaluation obtained. CBC is unremarkable. Coag panel is negative. Metabolic panel is negative. Computed tomography scan of the head and C-spine was obtained showing no acute processes. Thoracic and lumbar CT shows previous surgery with no acute bony abnormality. I did discussed patient case further w deny Delaney. I did mention to him that patient reports that she has had weakness in her right leg for 4 months. PCP is requested to admission and evaluation by a spinal surgeon and to get an urgent MRI 01/17/2020 Patient is seen and evaluated in room at bedside; continues to complain of lower back pain extending to mid back area; MRI is done and does not show any new stenosis or masses; no evidence of new fracture lumbar spine; orthopedic surgeries following and deemed patient not in any need for acute surgical intervention or stabilization; orthopedic is recommending increasing mobilization with physical therapy and to use devices needed for activity; patient continues to require pain medications; IV steroids for a short course along with muscle relaxers and monitor closely 01/18: Patient has been seen by Dr. Neely with no plan for any acute surgical intervention or stabilization at this time. Patient can resume mobilization with physical therapy as needed. Recommendations to refer patient back to Dr. Alejo. Patient is not a good candidate for surgical intervention. Patient is not interested in undergoing rehab. She states she is feeling better since admission. She is unable to lift the left leg well. Percocet will be increased to 10 mg. She is complaining of cough is nonproductive. No shortness of breath. Patient has been afebrile, heart rate 74, blood pressure 115/63, pulse ox 94% on 3 L nasal cannula. WBC 11.5, hemoglobin 9.9. Electrolytes normal, BUN 28 creatinine 0.9 to. Blood sugars running between 140 784. But sugars were in the 200s yesterday secondary to steroids. The patient will be discharged back to [facility] today in stable condition. Discharge diagnoses: 1. Acute exacerbation of chronic back pain 2. Acute renal injury 3. Anemia of chronic disease 4. Hypothyroidism 8. Seizure disorder 9. History of stroke 10. Chronic sacral ulcer, present on admission 11. Hypertension 12. Parkinson's 13. Hyperglycemia secondary to steroids 14. Chronic hypoxic respiratory failure on home O2 at 3 L nasal cannula Discharge plan: Return to [facility] Impression and plan of care have been directed as dictated by the signing physician. Louisa Edmond nurse practitioner acting as scribe for signing physician. Patient Condition at Discharge: Good Plan - Discharge Summary New Discharge Prescriptions: New INSULIN ASPART (NovoLOG) [NovoLOG (formulary)] 0 unit SQ ACHS vial oxyCODONE-APAP 10-325MG [Percocet 10-325 mg] 1 tab PO TID #9 tab predniSONE 0 mg PO DIRECTED #30 tab Continue busPIRone HCL 15 mg PO BID@0900,2100 levETIRAcetam [Keppra] 500 mg PO BID@0900,2100 Levothyroxine Sodium [Synthroid] 25 mcg PO DAILY@0600 Folic Acid 1 mg PO DAILY@1300 Baclofen [Lioresal] 10 mg PO TID@0900,1300,2100 Fluticasone/Vilanterol [Breo Ellipta 100-25 Mcg Inhaler] 1 puff INHALATION RT-DAILY@0900 Nitroglycerin Sl Tabs [Nitrostat] 0.4 mg SL Q5M PRN PRN Reason: Chest Pain Acetaminophen Tab [Tylenol] 650 mg PO Q4H PRN PRN Reason: Pain Sodium Chloride [Saline Nasal [place]] 2 spray EA NOSTRIL TID PRN PRN Reason: NASAL DRYNESS Fluticasone Nasal [place] [Flonase Nasal [place]] 1 spray EA NOSTRIL BID PRN PRN Reason: Allergy Symptoms Melatonin 10 mg PO HS@2100 Tofacitinib Citrate [Xeljanz Xr] 11 mg PO DAILY@0900 Prostat Awc 30 ml PO BID@0900,2100 atenoloL [Tenormin] 25 mg PO DAILY@0900 Dicyclomine [Bentyl] 10 mg PO BID PRN PRN Reason: STOMACH CRAMPING Loratadine [Claritin] 10 mg PO DAILY@0900 Pantoprazole Sodium [Protonix] 40 mg PO DAILY@0900 traZODone HCL [Desyrel] 100 mg PO HS@2100 Carbidopa-Levodopa 25-100 mg [Sinemet 25-100 mg] 1 tab PO TID@0900,1300,2099 FLUoxetine HCL [PROzac] 10 mg PO DAILY@0900 Furosemide [Lasix] 20 mg PO DAILY@0600 Ipratropium/Albuter 20-100Mcg [Combivent Respimat 20-100Mcg Inhaler] 2 puff INHALATION RT-QID PRN PRN Reason: Shortness Of Breath Mag Hydrox/Aluminum Hyd/Simeth [Mylanta Maximum Strength Liq] 30 ml PO Q4H PRN PRN Reason: Indigestion Potassium Chloride [Klor-Con 10] 20 meq PO DAILY@0900 Psyllium Husk 100% [Metamucil Packet] 6 gm PO DAILY PRN PRN Reason: Constipation Sennosides/Docusate Sodium [Senna-S 8.6-50 mg Tablet] 2 tab PO HS@2099 traZODone HCL 25 mg PO HS@2099 Apixaban [Eliquis] 5 mg PO BID@0900,2100 Gabapentin 600 mg PO TID@0900,1300,2099 #9 tab ALPRAZolam [Xanax] 0.25 mg PO BID@1299,2099 #6 tab Discontinued oxyCODONE HCL/ACETAMINOPHEN [Endocet 7.5-325 mg] 1 tab PO TID@0900,1300,2100 Discharge Medication List Baclofen [Lioresal] 10 mg PO TID@0900,1300,209902/22/16 [History] Folic Acid 1 mg PO DAILY@1300 02/22/16 [History] Levothyroxine Sodium [Synthroid] 25 mcg PO DAILY@0600 02/22/16 [History] busPIRone HCL 15 mg PO BID@0900,2100 02/22/16 [History] levETIRAcetam [Keppra] 500 mg PO BID@0900,209902/22/16 [History] Fluticasone/Vilanterol [Breo Ellipta 100-25 Mcg Inhaler] 1 puff INHALATION RT- DAILY@89905/15/18 [History] Nitroglycerin Sl Tabs [Nitrostat] 0.4 mg SL Q5M PRN 05/15/18 [History] Acetaminophen Tab [Tylenol] 650 mg PO Q4H PRN 06/13/18 [History] Fluticasone Nasal [place] [Flonase Nasal [place]] 1 spray EA NOSTRIL BID PRN 05/31 [History] Sodium Chloride [Saline Nasal [place]] 2 spray EA NOSTRIL TID PRN 06/13/18 [History] Melatonin 10 mg PO HS@209906/14/18 [History] Tofacitinib Citrate [Xeljanz Xr] 11 mg PO DAILY@89908/05/18 [History] Dicyclomine [Bentyl] 10 mg PO BID PRN 05/07/19 [History] Loratadine [Claritin] 10 mg PO DAILY@89905/07/19 [History] Pantoprazole Sodium [Protonix] 40 mg PO DAILY@89905/07/19 [History] Prostat Awc 30 ml PO BID@899,209905/07/19 [History] atenoloL [Tenormin] 25 mg PO DAILY@89905/07/19 [History] traZODone HCL [Desyrel] 100 mg PO HS@209905/07/19 [History] Apixaban [Eliquis] 5 mg PO BID@899,209901/15/20 [History] Carbidopa-Levodopa 25-100 mg [Sinemet 25-100 mg] 1 tab PO TID@0900,1300,209901/15/20 [History] FLUoxetine HCL [PROzac] 10 mg PO DAILY@89901/15/20 [History] Furosemide [Lasix] 20 mg PO DAILY@59901/15/20 [History] Ipratropium/Albuter 20-100Mcg [Combivent Respimat 20-100Mcg Inhaler] 2 puff INHALATION RT-QID PRN 01/15/20 [History] Mag Hydrox/Aluminum Hyd/Simeth [Mylanta Maximum Strength Liq] 30 ml PO Q4H PRN 01/15/20 [History] Potassium Chloride [Klor-Con 10] 20 meq PO DAILY@0900 01/15/20 [History] Psyllium Husk 100% [Metamucil Packet] 6 gm PO DAILY PRN 01/15/20 [History] Sennosides/Docusate Sodium [Senna-S 8.6-50 mg Tablet] 2 tab PO HS@209901/15/20 [History] traZODone HCL 25 mg PO HS@209901/15/20 [History] ALPRAZolam [Xanax] 0.25 mg PO BID@1299,2099 #6 tab 01/19/20 [Rx] Gabapentin 600 mg PO TID@0900,1299,2099 #9 tab 01/19/20 [Rx] INSULIN ASPART (NovoLOG) [NovoLOG (formulary)] 0 unit SQ ACHS vial 01/19/20 [Rx] oxyCODONE-APAP 10-325MG [Percocet 10-325 mg] 1 tab PO TID #9 tab 01/19/20 [Rx] predniSONE 0 mg PO DIRECTED #30 tab 01/19/20 [Rx] Follow up Appointment(s)/Referral(s): Carolyn Delaney MD [Primary Care Provider] - 01/21/20 1:00 pm
[2020-01-19 13:16] VITALS: BP 122/74; PULSE 61; RESP 16; TEMP 97.7
--- NOTE | 2020-01-19 13:58 | P.PAINCN ---
History of Present Illness - Reason for Consult Consult date: 01/19/20 - History of Present Illness This is 74 years old female with a chronic history of severe low back pain, with radiation to the lower extremity mainly to the right side, pain increased significantly after she fell on the floor recently, which is exacerbated her pain and the pain is constant , patient's being bedridden for the last 4 years, she had 6 surgical interventions on her back which was done by Dr. Baron in [facility], patient not able to ambulate, for 4 years, she is currently on ELEQUIS, Neurontin 600 mg 3 times a day and baclofen 10 mg 3 times a day and Percocet 10/325. (Increased today from 7.5 3 times a day), the patient complaining of pain from the cervical area radiating to the lower back area to wards the right lower extremity, patient had wound in the anal area at the end after she had radiation therapy to treat anal cancer Past Medical History Past Medical History: Coronary Artery Disease (CAD), Cancer, Heart Failure, COPD, CVA/TIA, Hyperlipidemia, Hypertension, Rheumatoid Arthritis (RA), Seizure Disorder, Skin Disorder, Thyroid Disorder, Vascular Disorder Additional Past Medical History / Comment(s): parkinsons History of Any Multi-Drug Resistant Organisms: ESBL, Other MDRO, VRE Year Discovered:: 07/18/19 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 Bone removed and yaquelin placed left leg. Surgery for bowel obstruction x 2. Ion cataracts Past Anesthesia/Blood Transfusion Reactions: No Reported Reaction Past Psychological History: Anxiety, Depression, Panic Disorder Smoking Status: Never smoker Past Alcohol Use History: None Reported Additional Past Alcohol Use History / Comment(s): smoked since age 21, < 1 PPD. states quit smoking 8 months ago Past Drug Use History: None Reported - Past Family History Mother History Unknown: Yes Family Medical History: CVA/TIA Father History Unknown: Yes Additional Family Medical History / Comment(s): father of blot clots 6months after cabg Daughter(s) Family Medical History: Cancer Additional Family Medical History / Comment(s): bone Medications and Allergies Home Medications Medication Instructions Recorded Confirmed Type Baclofen [Lioresal] 10 mg PO TID@0900,1300,209902/22/16 01/15/20 History Folic Acid 1 mg PO DAILY@1300 02/22/16 01/15/20 History Levothyroxine Sodium [Synthroid] 25 mcg PO DAILY@0600 02/22/16 01/15/20 History busPIRone HCL 15 mg PO BID@0900,209902/22/16 01/15/20 History levETIRAcetam [Keppra] 500 mg PO BID@0900,209902/22/16 01/15/20 History Fluticasone/Vilanterol [Breo 1 puff INHALATION RT-DAILY@89905/15/18 01/15/20 History Ellipta 100-25 Mcg Inhaler] Nitroglycerin Sl Tabs [Nitrostat] 0.4 mg SL Q5M PRN 05/15/18 01/15/20 History Acetaminophen Tab [Tylenol] 650 mg PO Q4H PRN 06/13/18 01/15/20 History Fluticasone Nasal [place] [Flonase 1 spray EA NOSTRIL BID PRN 06/13/18 01/15/20 History Nasal Hart] Sodium Chloride [Saline Nasal 2 spray EA NOSTRIL TID PRN 06/13/18 01/15/20 History Hart] Melatonin 10 mg PO HS@209906/14/18 01/15/20 History Tofacitinib Citrate [Xeljanz Xr] 11 mg PO DAILY@0900 08/05/18 01/15/20 History Dicyclomine [Bentyl] 10 mg PO BID PRN 05/07/19 01/15/20 History Loratadine [Claritin] 10 mg PO DAILY@0900 05/07/19 01/15/20 History Pantoprazole Sodium [Protonix] 40 mg PO DAILY@0905/07/19 01/15/20 History Prostat Awc 30 ml PO BID@0900,209905/07/19 01/15/20 History atenoloL [Tenormin] 25 mg PO DAILY@0900 05/07/19 01/15/20 History traZODone HCL [Desyrel] 100 mg PO HS@209905/07/19 01/15/20 History Apixaban [Eliquis] 5 mg PO BID@0900,209901/15/20 01/15/20 History Carbidopa-Levodopa 25-100 mg 1 tab PO TID@0900,1300,209901/15/20 01/15/20 History [Sinemet 25-100 mg] FLUoxetine HCL [PROzac] 10 mg PO DAILY@89901/15/20 01/15/20 History Furosemide [Lasix] 20 mg PO DAILY@59901/15/20 01/15/20 History Ipratropium/Albuter 20-100Mcg 2 puff INHALATION RT-QID PRN 01/15/20 01/15/20 History [Combivent Respimat 20-100Mcg Inhaler] Mag Hydrox/Aluminum Hyd/Simeth 30 ml PO Q4H PRN 01/15/20 01/15/20 History [Mylanta Maximum Strength Liq] Potassium Chloride [Klor-Con 10] 20 meq PO DAILY@89901/15/20 01/15/20 History Psyllium Husk 100% [Metamucil 6 gm PO DAILY PRN 01/15/20 01/15/20 History Packet] Sennosides/Docusate Sodium 2 tab PO HS@209901/15/20 01/15/20 History [Senna-S 8.6-50 mg Tablet] traZODone HCL 25 mg PO HS@209901/15/20 01/15/20 History ALPRAZolam [Xanax] 0.25 mg PO BID@1300,2100 #6 tab 01/19/20 Rx Gabapentin 600 mg PO TID@0900,1300,2100 #9 tab 01/19/20 Rx INSULIN ASPART (NovoLOG) [NovoLOG 0 unit SQ ACHS vial 01/19/20 Rx (formulary)] oxyCODONE-APAP 10-325MG [Percocet 1 tab PO TID #9 tab 01/19/20 Rx 10-325 mg] predniSONE 0 mg PO DIRECTED #30 tab 01/19/20 Rx Allergies Allergy/AdvReac Type Severity Reaction Status Date / Time amitriptyline Allergy Unknown Verified 01/15/20 20:48 aspirin Allergy Unknown Verified 01/15/20 20:48 ciprofloxacin [From Cipro] Allergy Unknown Verified 01/15/20 20:48 codeine Allergy Hallucinati Verified 01/15/20 20:48 [From Tylenol-Codeine #3] ons ezetimibe Allergy Unknown Verified 01/15/20 20:48 fluoxetine [From Prozac] Allergy Unknown Verified 01/15/20 20:48 ibuprofen [From Motrin] Allergy Unknown Verified 01/15/20 20:48 indomethacin [From Indocin] Allergy Unknown Verified 01/15/20 20:48 Iodinated Contrast Media Allergy Unknown Verified 01/15/20 20:48 [Iodinated Contrast- Oral and IV Dye] niacin Allergy Unknown Verified 01/15/20 20:48 nitrofurantoin Allergy Unknown Verified 01/15/20 20:48 Penicillins Allergy Anaphylaxis Verified 01/15/20 20:48 pregabalin Allergy Unknown Verified 01/15/20 20:48 Gaqzlim-Zrm-Wis Reductase Allergy Unknown Verified 01/15/20 20:48 Inhibitor Sulfa (Sulfonamide AdvReac Nausea & Verified 01/15/20 20:48 Antibiotics) Vomiting & Diarrhea Physical Exam Vitals: Vital Signs Temp Pulse Resp BP Pulse Ox 01/19/20 13:00 97.7 F 61 16 122/74 93 L 01/19/20 04:48 98.5 F 74 14 115/63 94 L 01/19/20 00:00 73 16 01/18/20 20:19 92 L 01/18/20 20:00 97.8 F 73 16 108/66 92 L Intake and Output 01/18/20 01/19/20 01/19/20 22:59 06:59 14:59 Intake Total 70 160 Output Total 825 Balance 70 -665 Intake: Intake, IV Titration 70 160 Amount Sodium Chloride 0.9% 1, 70 160 000 ml @ 20 mls/hr IV . Q24H [facility] Rx#:[id number] Output: Urine 825 Other: Voiding Method Indwelling Catheter Indwelling Catheter Indwelling Catheter Physical Examinations : -Constitutiona : Cooperative , not in acute distress . -HEENT : nech : supple , no Lymphadenopathy , normal thyroid size . : eyes : no ptosis , no icterus, no photophobia . - neurologic : Cranial nerve II to XII intact , no focal neurological deffecit . -psychatric : alert , oriented X 3 , appropriate affect , intact judgment and insight . -Lymphatic : no Lymphadenopathy . - musculoskeltal : Thoracic Spine : Generalized tenderness over the thoracic paravertebral muscles Lumber spine moter stegnth lower extremities ,thigh and legs 2/5 Right side , 2/5 Left side deep tendon reflexes : normal Knee Jerk , normal ankle Jerk lumber facet Loading Test =positive Right , positive left tenderness over the Sacroiliac joint on the Right , and Left sides Results CBC & Chem 7: 01/19/20 07:43 01/19/20 07:43 Labs: Abnormal Lab Results - Last 24 Hours (Table) 01/18/20 01/18/20 01/19/20 Range/Units 17:15 20:00 07:10 WBC (3.8-10.6) k/uL RBC (3.80-5.40) m/uL Hgb (11.4-16.0) gm/dL Hct (34.0-46.0) % MCHC (31.0-37.0) g/dL RDW (11.5-15.5) % Neutrophils # (1.3-7.7) k/uL Lymphocytes # (1.0-4.8) k/uL BUN (7-17) mg/dL Glucose (74-99) mg/dL POC Glucose (mg/dL) 215 H 244 H 184 H (75-99) mg/dL 01/19/20 01/19/20 01/19/20 Range/Units 07:43 07:43 11:43 WBC 11.5 H (3.8-10.6) k/uL RBC 3.53 L (3.80-5.40) m/uL Hgb 9.9 L (11.4-16.0) gm/dL Hct 32.3 L (34.0-46.0) % MCHC 30.5 L (31.0-37.0) g/dL RDW 16.1 H (11.5-15.5) % Neutrophils # 10.0 H (1.3-7.7) k/uL Lymphocytes # 0.6 L (1.0-4.8) k/uL BUN 28 H (7-17) mg/dL Glucose 171 H (74-99) mg/dL POC Glucose (mg/dL) 147 H (75-99) mg/dL Microbiology - Last 24 Hours (Table) 01/17/20 16:52 Urine Culture - Final Urine,Voided Comments: Computed tomography scan of the thoracic spine multilevel lumbar degenerative disc disease evidence of multilevel lumbar fusion with returned interbody devices at L2 3 L4 5 and L5-S1 Assessment and Plan Plan: Assessment and plan=1 acute exacerbation of chronic low back pain. 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 3- Lumbar degenerative disc disease. 4-Parkinson's disease. 5-history of anal cancer. 6-myofascial pain syndrome thoracic and lumbar a felipa. She is not a candidate for interventional pain procedure, because she had open wound at the caudal area which we cannot do any intervention, cause of the wound, and patient also currently she is on lElequis , recommend increase Percocet to 10/325 kg 6-8 hours Continue baclofen 10 mg 3 times a day. Continue Neurontin 600 mg 3 times a day Time with Patient: Greater than 30 PQRS Measure Charge Sheet PQRS Narrative: Smoking Status Former smoker Do You Want the Pneumonia Vaccine Up to Date Vaccine AT THIS TIME? Blood Pressure [Left Arm] 122/74 Blood Pressure 118/71 Pain Intensity [Right Hip] 0 Pain Intensity 8 Pain Scale Used Non Verbal Pain Indicator Scale Used Numeric (1 - 10) Home Medications: Ambulatory Orders Baclofen [Lioresal] 10 mg PO TID@0900,1300,209902/22/16 Folic Acid 1 mg PO DAILY@1300 02/22/16 Levothyroxine Sodium [Synthroid] 25 mcg PO DAILY@0600 02/22/16 busPIRone HCL 15 mg PO BID@0900,209902/22/16 levETIRAcetam [Keppra] 500 mg PO BID@0900,209902/22/16 Fluticasone/Vilanterol [Breo Ellipta 100-25 Mcg Inhaler] 1 puff INHALATION RT-DAILY@0900 05/15/18 Nitroglycerin Sl Tabs [Nitrostat] 0.4 mg SL Q5M PRN 05/15/18 Acetaminophen Tab [Tylenol] 650 mg PO Q4H PRN 06/13/18 Fluticasone Nasal [place] [Flonase Nasal [place]] 1 spray EA NOSTRIL BID PRN 06/13/18 Sodium Chloride [Saline Nasal [place]] 2 spray EA NOSTRIL TID PRN 06/13/18 Melatonin 10 mg PO HS@209906/14/18 Tofacitinib Citrate [Xeljanz Xr] 11 mg PO DAILY@89908/05/18 Dicyclomine [Bentyl] 10 mg PO BID PRN 05/07/19 Loratadine [Claritin] 10 mg PO DAILY@89905/07/19 Pantoprazole Sodium [Protonix] 40 mg PO DAILY@89905/07/19 Prostat Awc 30 ml PO BID@899,209905/07/19 atenoloL [Tenormin] 25 mg PO DAILY@89905/07/19 traZODone HCL [Desyrel] 100 mg PO HS@209905/07/19 Apixaban [Eliquis] 5 mg PO BID@899,209901/15/20 Carbidopa-Levodopa 25-100 mg [Sinemet 25-100 mg] 1 tab PO TID@899,1299,209901/15/20 FLUoxetine HCL [PROzac] 10 mg PO DAILY@89901/15/20 Furosemide [Lasix] 20 mg PO DAILY@59901/15/20 Ipratropium/Albuter 20-100Mcg [Combivent Respimat 20-100Mcg Inhaler] 2 puff INHALATION RT-QID PRN 01/15/20 Mag Hydrox/Aluminum Hyd/Simeth [Mylanta Maximum Strength Liq] 30 ml PO Q4H PRN 01/15/20 Potassium Chloride [Klor-Con 10] 20 meq PO DAILY@89901/15/20 Psyllium Husk 100% [Metamucil Packet] 6 gm PO DAILY PRN 01/15/20 Sennosides/Docusate Sodium [Senna-S 8.6-50 mg Tablet] 2 tab PO HS@209901/15/20 traZODone HCL 25 mg PO HS@209901/15/20 ALPRAZolam [Xanax] 0.25 mg PO BID@1299,2099 #6 tab 01/19/20 Gabapentin 600 mg PO TID@899,1299,2099 #9 tab 01/19/20 INSULIN ASPART (NovoLOG) [NovoLOG (formulary)] 0 unit SQ ACHS vial 01/19/20 oxyCODONE-APAP 10-325MG [Percocet 10-325 mg] 1 tab PO TID #9 tab 01/19/20 predniSONE 0 mg PO DIRECTED #30 tab 01/19/20
[2020-01-19] MEDS ORDERED: oxyCODONE-APAP 10-325MG 1 EACH TAB PO SCH (16:00)
--- NOTE | 2020-01-22 13:22 | CDI ---
Documentation Clarification Form Date: 01/22/20 From: Darlyn Torre Phone: If you have a question about this query, please contact Lore Morin, Sash Installer at [phone] between 8am and 5pm. Admit Date: 01/19/20 Discharge Date:01/20/20 Patient Name: Aspen Mendoza Visit Number: [id number] ATTENTION: The Clinical Documentation Specialists (CDI) and [facility] Coding Staff appreciate your assistance in clarifying documentation. Please respond to the clarification below the line at the bottom and electronically sign. The CDI & [facility] Coding staff will review the response and follow-up if needed. Please note: Queries are made part of the Legal Health Record. If you have any questions, please contact the author of this message via ITS. Dear Dr. Vee EKG shows atrial flutter which was not apparent on previous EKG is documente in the ED Note, H&P, discharge summary and your 01/16 progress note. History/Risk factors: CAD, Hypertension, history of CHF Clinical Indicators: Abnormal EKG finding EKG/telemetry: Atrial flutter with 4:1 AV conduction Treatment: Patient already on Eliquis In your professional opinion, in order to capture the severity of condition; can you please clarify the type of Atrial Flutter if known? Typical/Type I Atypical/Type II Other, please specify Unable to determine Atypical/Type II MTDD
--- NOTE | 2020-01-22 13:32 | CDI ---
Documentation Clarification Form Date: 01/22/20 From: Darlyn Torre Phone: If you have a question about this query, please contact Lore Morin, [employer] Professional at [phone] between 8am and 5pm. Admit Date: 01/19/20 Discharge Date:01/19/20 Patient Name: Aspen Mendoza Visit Number: [id number] ATTENTION: The Clinical Documentation Specialists (CDI) and [facility] Coding Staff appreciate your assistance in clarifying documentation. Please respond to the clarification below the line at the bottom and electronically sign. The CDI & [facility] Coding staff will review the response and follow-up if needed. Please note: Queries are made part of the Legal Health Record. If you have any questions, please contact the author of this message via ITS. Dear Dr. Vee Heart failure is documented in the past medical history of the ED note, H&P, both consult notes and Dr. Bustamante's 01/17 progress note History/Risk Factors: CAD, hypertension Clinical Indicators: No acute symptoms VS/Pulse OX: T. 97, P. 78, R. 18, BP 162/82, Pulse ox. 96% on room air Chest X Ray: No active cardiopulmonary disease Treatment: Patient currently on 20 mg po daily Lasix at home In your professional opinion, can you please clarify the type of CHF if known? Systolic Heart Failure: Diastolic Heart Failure: Systolic & Diastolic Heart Failure: Unable to Determine Other, please specify Unable to Determine ____ MTDD
== END 2020-01-19 16:30 | DRG 948 ==
LOC: EC 18:56 → 6NMEDSUR 21:06 → OBSVTOIN 01-19 06:43
PROVIDERS: ADMIT Internal Medicine; ATTEND Internal Medicine
DX: G89.11 Acute pain due to trauma (principal); E87.1 Hypo-osmolality and hyponatremia; J96.11 Chronic respiratory failure with hypoxia; N17.9 Acute kidney failure, unspecified; I48.4 Atypical atrial flutter; I11.0 Hypertensive heart disease with heart failure; I50.9 Heart failure, unspecified; L98.429 Non-pressure chronic ulcer of back with unspecified severity; M41.50 Other secondary scoliosis, site unspecified; D63.8 Anemia in other chronic diseases classified elsewhere; G20 Parkinson's disease; G40.909 Epilepsy, unspecified, not intractable, without status epilepticus; J44.9 Chronic obstructive pulmonary disease, unspecified; M06.9 Rheumatoid arthritis, unspecified; E03.9 Hypothyroidism, unspecified; M51.16 Intervertebral disc disorders with radiculopathy, lumbar region; E66.9 Obesity, unspecified; E78.5 Hyperlipidemia, unspecified; F32.9 Major depressive disorder, single episode, unspecified; F41.0 Panic disorder [episodic paroxysmal anxiety]; G89.29 Other chronic pain; I25.10 Atherosclerotic heart disease of native coronary artery without angina pectoris; M21.371 Foot drop, right foot; M43.16 Spondylolisthesis, lumbar region; T38.0X5A Adverse effect of glucocorticoids and synthetic analogues, initial encounter; R26.9 Unspecified abnormalities of gait and mobility; R15.9 Full incontinence of feces; M79.18 Myalgia, other site; R73.9 Hyperglycemia, unspecified; Z68.32 Body mass index [BMI] 32.0-32.9, adult; Z74.01 Bed confinement status; Z79.01 Long term (current) use of anticoagulants; Z79.890 Hormone replacement therapy; Z79.899 Other long term (current) drug therapy; Z79.52 Long term (current) use of systemic steroids; Z79.891 Long term (current) use of opiate analgesic; Z87.891 Personal history of nicotine dependence; Z98.1 Arthrodesis status; Z96.643 Presence of artificial hip joint, bilateral; Z92.3 Personal history of irradiation; Z90.710 Acquired absence of both cervix and uterus; Z90.49 Acquired absence of other specified parts of digestive tract; Z86.73 Personal history of transient ischemic attack (TIA), and cerebral infarction without residual deficits; Z88.0 Allergy status to penicillin; Z88.2 Allergy status to sulfonamides; Z88.8 Allergy status to other drugs, medicaments and biological substances; Z88.6 Allergy status to analgesic agent; Z88.1 Allergy status to other antibiotic agents; Z91.041 Radiographic dye allergy status; Z85.048 Personal history of other malignant neoplasm of rectum, rectosigmoid junction, and anus; Z86.19 Personal history of other infectious and parasitic diseases; Z96.651 Presence of right artificial knee joint; Z98.42 Cataract extraction status, left eye; Z98.41 Cataract extraction status, right eye; Z92.21 Personal history of antineoplastic chemotherapy; Z98.890 Other specified postprocedural states; Z82.3 Family history of stroke; Z82.49 Family history of ischemic heart disease and other diseases of the circulatory system; Z80.8 Family history of malignant neoplasm of other organs or systems; W17.89XA Other fall from one level to another, initial encounter; Y92.129 Unspecified place in nursing home as the place of occurrence of the external cause
CPT/HCPCS: 36415; 70450; 71045; 72125; 72128; 72131; 72148; 80048; 81001; 85025; 85610; 85730; 87086; 93005; 94640; 96374; 96375; 99285

== ENCOUNTER 2020-02-25 18:01 | Emergency (ER) | payer MEDICARE, OTHER ==
[2020-02-25 18:09] VITALS: BP 145/104; PULSE 98; RESP 18; TEMP 99.2
[2020-02-25] MEDS ORDERED: SODIUM CHLORIDE 0.9% 1,000 ML IV STA (18:11)
[2020-02-25] MEDS ORDERED: SODIUM CHLORIDE 0.9% 500 ML 500 ML IV ONE (18:11)
[2020-02-25 18:50] LABS: Amorphous Sediment,Urine Occasional /hpf; Appearance,Urine Cloudy (Clear); Bacteria,Urine Few /hpf; Bilirubin,Urine Negative (Negative); Blood,Urine Negative (Negative); Calcium Oxalate Crystals,Urine Moderate /hpf; Color,Urine Yellow; Glucose,Urine (UA) Negative (Negative); Hyaline Casts,Urine 2 /lpf (0-2); Ketones,Urine Trace (Negative); Leukocyte Esterase,Urine Moderate (Negative); Mucus,Urine Rare /hpf; Nitrite,Urine Negative (Negative); PH, Urine 5.5 (5.0-8.0); Protein,Urine Trace (Negative); Specific Gravity,Urine 1.022 (1.001-1.035); Squamous Epithelial Cell,Urine 2 /hpf (0-4); WBC,Urine 9 /hpf (0-5)
[2020-02-25 18:52] LABS: Albumin 3.7 g/dL (3.5-5.0); Calcium 9.1 mg/dL (8.4-10.2); Potassium 4.8 mmol/L (3.5-5.1); Total Bilirubin 0.4 mg/dL (0.2-1.3); Total Protein 6.8 g/dL (6.3-8.2)
--- NOTE | 2020-02-25 18:53 | ED ---
General Adult HPI - General Chief complaint: Altered Mental Status Stated complaint: Altered Time Seen by Provider: 02/25/20 18:07 Source: patient, EMS, RN notes reviewed, old records reviewed Mode of arrival: EMS Limitations: no limitations - History of Present Illness Initial comments: 74-year-old female presented from senior living for evaluation of altered level of consciousness. Patient is alert and oriented 3, able to provide history. She states she's had a decubitus ulcer rectal pain which is been ongoing. She has no other new complaints. She had recent history of UTI does have an indwelling Arceo catheter. Additionally she has history of Parkinson's disease with a resting tremor. No headache. Denies vomiting. Denies fever. Not c urrently on antibiotics. - Related Data Home Medications Medication Instructions Recorded Confirmed Baclofen [Lioresal] 10 mg PO TID@0900,1300,209902/22/16 01/15/20 Folic Acid 1 mg PO DAILY@1300 02/22/16 01/15/20 Levothyroxine Sodium [Synthroid] 25 mcg PO DAILY@0600 02/22/16 01/15/20 busPIRone HCL 15 mg PO BID@0900,209902/22/16 01/15/20 levETIRAcetam [Keppra] 500 mg PO BID@0900,209902/22/16 01/15/20 Fluticasone/Vilanterol [Breo 1 puff INHALATION RT-DAILY@0900 05/15/18 01/15/20 Ellipta 100-25 Mcg Inhaler] Nitroglycerin Sl Tabs [Nitrostat] 0.4 mg SL Q5M PRN 05/15/18 01/15/20 Acetaminophen Tab [Tylenol] 650 mg PO Q4H PRN 06/13/18 01/15/20 Fluticasone Nasal [place] [Flonase 1 spray EA NOSTRIL BID PRN 06/13/18 01/15/20 Nasal [place]] Sodium Chloride [Saline Nasal 2 spray EA NOSTRIL TID PRN 06/13/18 01/15/20 [place]] Melatonin 10 mg PO HS@2100 06/14/18 01/15/20 Tofacitinib Citrate [Xeljanz Xr] 11 mg PO DAILY@0900 08/05/18 01/15/20 Dicyclomine [Bentyl] 10 mg PO BID PRN 05/07/19 01/15/20 Loratadine [Claritin] 10 mg PO DAILY@89905/07/19 01/15/20 Pantoprazole Sodium [Protonix] 40 mg PO DAILY@89905/07/19 01/15/20 Prostat Awc 30 ml PO BID@899,209905/07/19 01/15/20 atenoloL [Tenormin] 25 mg PO DAILY@89905/07/19 01/15/20 traZODone HCL [Desyrel] 100 mg PO HS@209905/07/19 01/15/20 Apixaban [Eliquis] 5 mg PO BID@899,209901/15/20 01/15/20 Carbidopa-Levodopa 25-100 mg 1 tab PO TID@00,1299,209901/15/20 01/15/20 [Sinemet 25-100 mg] FLUoxetine HCL [PROzac] 10 mg PO DAILY@89901/15/20 01/15/20 Furosemide [Lasix] 20 mg PO DAILY@59901/15/20 01/15/20 Ipratropium/Albuter 20-100Mcg 2 puff INHALATION RT-QID PRN 01/15/20 01/15/20 [Combivent Respimat 20-100Mcg Inhaler] Mag Hydrox/Aluminum Hyd/Simeth 30 ml PO Q4H PRN 01/15/20 01/15/20 [Mylanta Maximum Strength Liq] Potassium Chloride [Klor-Con 10] 20 meq PO DAILY@89901/15/20 01/15/20 Psyllium Husk 100% [Metamucil 6 gm PO DAILY PRN 01/15/20 01/15/20 Packet] Sennosides/Docusate Sodium 2 tab PO HS@209901/15/20 01/15/20 [Senna-S 8.6-50 mg Tablet] traZODone HCL 25 mg PO HS@209901/15/20 01/15/20 Previous Rx's Medication Instructions Recorded ALPRAZolam [Xanax] 0.25 mg PO BID@1299,2099 #6 tab 01/19/20 Gabapentin 600 mg PO TID@899,1299,2099 #9 tab 01/19/20 INSULIN ASPART (NovoLOG) [NovoLOG 0 unit SQ ACHS vial 01/19/20 (formulary)] oxyCODONE-APAP 10-325MG [Percocet 1 tab PO TID #9 tab 01/19/20 10-325 mg] predniSONE 0 mg PO DIRECTED #30 tab 01/19/20 Allergies Allergy/AdvReac Type Severity Reaction Status Date / Time amitriptyline Allergy Unknown Verified 01/15/20 20:48 aspirin Allergy Unknown Verified 01/15/20 20:48 ciprofloxacin [From Cipro] Allergy Unknown Verified 01/15/20 20:48 codeine Allergy Hallucinati Verified 01/15/20 20:48 [From Tylenol-Codeine #3] ons ezetimibe Allergy Unknown Verified 01/15/20 20:48 fluoxetine [From Prozac] Allergy Unknown Verified 01/15/20 20:48 ibuprofen [From Motrin] Allergy Unknown Verified 01/15/20 20:48 indomethacin [From Indocin] Allergy Unknown Verified 01/15/20 20:48 Iodinated Contrast Media Allergy Unknown Verified 01/15/20 20:48 [Iodinated Contrast- Oral and IV Dye] niacin Allergy Unknown Verified 01/15/20 20:48 nitrofurantoin Allergy Unknown Verified 01/15/20 20:48 Penicillins Allergy Anaphylaxis Verified 01/15/20 20:48 pregabalin Allergy Unknown Verified 01/15/20 20:48 Jrjbwxa-Vrb-Fcv Reductase Allergy Unknown Verified 01/15/20 20:48 Inhibitor Sulfa (Sulfonamide AdvReac Nausea & Verified 01/15/20 20:48 Antibiotics) Vomiting & Diarrhea Review of Systems ROS Statement: Those systems with pertinent positive or pertinent negative responses have been documented in the HPI. ROS Other: All systems not noted in ROS Statement are negative. 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 Bone removed and yaquelin placed left leg. Surgery for bowel obstruction x 2. Ion cataracts Past Anesthesia/Blood Transfusion Reactions: No Reported Reaction Past Psychological History: Anxiety, Depression, Panic Disorder Smoking Status: Never smoker Past Alcohol Use History: None Reported Past Drug Use History: None Reported - Past Family History Mother History Unknown: Yes Family Medical History: CVA/TIA Father History Unknown: Yes Additional Family Medical History / Comment(s): father of blot clots 6months after cabg Daughter(s) Family Medical History: Cancer Additional Family Medical History / Comment(s): bone General Exam Limitations: no limitations General appearance: alert, in no apparent distress Head exam: Present: atraumatic, normocephalic Eye exam: Present: normal appearance, PERRL ENT exam: Present: mucous membranes dry Neck exam: Present: normal inspection. Absent: tenderness, meningismus Respiratory exam: Present: decreased breath sounds. Absent: respiratory distres s, wheezes Cardiovascular Exam: Present: regular rate, normal rhythm GI/Abdominal exam: Present: soft. Absent: distended, tenderness, guarding, rebound Rectal exam: Present: other (Stage III sacral decubitus ulcer no surrounding cellulitis or fluctuance) Extremities exam: Present: normal capillary refill, pedal edema Back exam: Present: normal inspection Neurological exam: Present: alert, oriented X3, CN II-XII intact. Absent: motor sensory deficit Psychiatric exam: Present: normal affect, normal mood Skin exam: Present: warm, dry, intact. Absent: cyanosis, diaphoretic Course Vital Signs 02/25/20 18:06 Temperature 99.2 F Pulse Rate 98 Respiratory 18 Rate Blood Pressure 145/104 O2 Sat by Pulse 94 L Oximetry - Reevaluation(s) Reevaluation #1: 02/25/20 19:[address] Delaney, both agreeable at this time for discharge there is no acute new findings on history, physical, or workup. EKG Findings - EKG Comments: EKG Findings:: EKG: Atrial flutter 3:1 AV conduction low voltage, rate of 93, QRS duration 68, QTC 417, no ST segment elevation. Medical Decision Making - Medical Decision Making 74-year-old female with an episode of altered level of consciousness. Patient alert and oriented 3, able to give historical details, no new complaints. Head CT is performed negative for intracranial hemorrhage or mass effect, chest x-ray negative for focal pneumonia or acute findings. She has mild leukocytosis of 11. Hemoglobin is stable at 9.9. Creatinine 1.1 which is stable for this patient. She has urinalysis from an indwelling Arceo catheter which is negative for significant signs of infection. Overall patient is baseline. I discussed case with her primary care physician Dr. Delaney. Patient will return in senior living. - Lab Data Result diagrams: 02/25/20 18:35 02/25/20 18:35 Lab Results 02/25/20 02/25/20 02/25/20 Range/Units 18:35 18:35 18:35 WBC 10.8 H (3.8-10.6) k/uL RBC 3.56 L (3.80-5.40) m/uL Hgb 9.9 L (11.4-16.0) gm/dL Hct 32.2 L (34.0-46.0) % MCV 90.4 (80.0-100.0) fL MCH 27.9 (25.0-35.0) pg MCHC 30.8 L (31.0-37.0) g/dL RDW 16.7 H (11.5-15.5) % Plt Count 404 (150-450) k/uL Neutrophils % (Manual) 65 % Lymphocytes % (Manual) 21 % Monocytes % (Manual) 11 % Eosinophils % (Manual) 1 % Metamyelocytes % 1 % Myelocytes % 1 % Neutrophils # (Manual) 7.02 (1.3-7.7) k/uL Lymphocytes # (Manual) 2.27 (1.0-4.8) k/uL Monocytes # (Manual) 1.19 H (0-1.0) k/uL Eosinophils # (Manual) 0.11 (0-0.7) k/uL Metamyelocytes # (Man) 0.11 H (0) k/uL Myelocytes # (Manual) 0.11 H (0) k/uL Nucleated RBCs 2 H (0-0) /100 WBC Manual Slide Review Performed Hypochromasia Marked Anisocytosis Slight Stomatocytes Present PT 9.9 (9.0-12.0) sec INR 0.9 (<1.2) APTT 22.7 (22.0-30.0) sec Sodium (137-145) mmol/L Potassium (3.5-5.1) mmol/L Chloride (98-107) mmol/L Carbon Dioxide (22-30) mmol/L Anion Gap mmol/L BUN (7-17) mg/dL Creatinine (0.52-1.04) mg/dL Est GFR (CKD-EPI)AfAm (>60 ml/min/1.73 sqM) Est GFR (CKD-EPI)NonAf (>60 ml/min/1.73 sqM) Glucose (74-99) mg/dL Calcium (8.4-10.2) mg/dL Total Bilirubin (0.2-1.3) mg/dL AST (14-36) U/L ALT (4-34) U/L Alkaline Phosphatase (38-126) U/L Total Protein (6.3-8.2) g/dL Albumin (3.5-5.0) g/dL Urine Color Yellow Urine Appearance Cloudy H (Clear) Urine pH 5.5 (5.0-8.0) Ur Specific [place] 1.022 (1.001-1.035) Urine Protein Trace H (Negative) Urine Glucose (UA) Negative (Negative) Urine Ketones Trace H (Negative) Urine Blood Negative (Negative) Urine Nitrite Negative (Negative) Urine Bilirubin Negative (Negative) Urine Urobilinogen 2.0 (<2.0) mg/dL Ur Leukocyte Esterase Moderate H (Negative) Urine WBC 9 H (0-5) /hpf Ur Squamous Epith Cells 2 (0-4) /hpf Calcium Oxalate Crystal Moderate H (None) /hpf Amorphous Sediment Occasional H (None) /hpf Urine Bacteria Few H (None) /hpf Hyaline Casts 2 (0-2) /lpf Urine Mucus Rare H (None) /hpf 10/15/20 Range/Units 18:35 WBC (3.8-10.6) k/uL RBC (3.80-5.40) m/uL Hgb (11.4-16.0) gm/dL Hct (34.0-46.0) % MCV (80.0-100.0) fL MCH (25.0-35.0) pg MCHC (31.0-37.0) g/dL RDW (11.5-15.5) % Plt Count (150-450) k/uL Neutrophils % (Manual) % Lymphocytes % (Manual) % Monocytes % (Manual) % Eosinophils % (Manual) % Metamyelocytes % % Myelocytes % % Neutrophils # (Manual) (1.3-7.7) k/uL Lymphocytes # (Manual) (1.0-4.8) k/uL Monocytes # (Manual) (0-1.0) k/uL Eosinophils # (Manual) (0-0.7) k/uL Metamyelocytes # (Man) (0) k/uL Myelocytes # (Manual) (0) k/uL Nucleated RBCs (0-0) /100 WBC Manual Slide Review Hypochromasia Anisocytosis Stomatocytes PT (9.0-12.0) sec INR (<1.2) APTT (22.0-30.0) sec Sodium 136 L (137-145) mmol/L Potassium 4.8 (3.5-5.1) mmol/L Chloride 101 (98-107) mmol/L Carbon Dioxide 29 (22-30) mmol/L Anion Gap 6 mmol/L BUN 17 (7-17) mg/dL Creatinine 1.10 H (0.52-1.04) mg/dL Est GFR (CKD-EPI)AfAm 58 (>60 ml/min/1.73 sqM) Est GFR (CKD-EPI)NonAf 50 (>60 ml/min/1.73 sqM) Glucose 117 H (74-99) mg/dL Calcium 9.1 (8.4-10.2) mg/dL Total Bilirubin 0.4 (0.2-1.3) mg/dL AST 36 (14-36) U/L ALT 10 (4-34) U/L Alkaline Phosphatase 79 (38-126) U/L Total Protein 6.8 (6.3-8.2) g/dL Albumin 3.7 (3.5-5.0) g/dL Urine Color Urine Appearance (Clear) Urine pH (5.0-8.0) Ur Specific [place] (1.001-1.035) Urine Protein (Negative) Urine Glucose (UA) (Negative) Urine Ketones (Negative) Urine Blood (Negative) Urine Nitrite (Negative) Urine Bilirubin (Negative) Urine Urobilinogen (<2.0) mg/dL Ur Leukocyte Esterase (Negative) Urine WBC (0-5) /hpf Ur Squamous Epith Cells (0-4) /hpf Calcium Oxalate Crystal (None) /hpf Amorphous Sediment (None) /hpf Urine Bacteria (None) /hpf Hyaline Casts (0-2) /lpf Urine Mucus (None) /hpf Disposition Clinical Impression: Altered mental status Disposition: OTHER INSTITUTION NOT DEFINED Condition: Fair Instructions (If sedation given, give patient instructions): Altered Mental Status (ED) Is patient prescribed a controlled substance at d/c from ED?: No Referrals: Carolyn Delaney MD [Primary Care Provider] - 1-2 days - Out of Hospital Transfer - Req. Specs Out of Hospital Transfer - Requested Specifics: Other Non-Acute (Return to senior living)
[2020-02-25 18:57] LABS: INR 0.9 (<1.2); Partial Thromboplastin Time 22.7 sec (22.0-30.0); Prothrombin Time 9.9 sec (9.0-12.0)
[2020-02-25 19:07] LABS: Anisocytosis Slight; HCT 32.2 % (34.0-46.0); HGB 9.9 gm/dL (11.4-16.0); Hypochromasia Marked; MCH 27.9 pg (25.0-35.0); MCHC 30.8 g/dL (31.0-37.0); MCV 90.4 fL (80.0-100.0); Mean Platelet Volume 8.1; Platelet Count 404 k/uL (150-450); RBC 3.56 m/uL (3.80-5.40); RDW 16.7 % (11.5-15.5)
--- NOTE | 2020-02-25 19:39 | XR ---
EXAMINATION TYPE: XR chest 1V portable DATE OF EXAM: 02/25/2020 COMPARISON: 01/15/2020 HISTORY: Pain TECHNIQUE: Single view FINDINGS: There is no heart failure nor confluent pneumonic infiltrate. Costophrenic angles are clear . There are chest leads. Exam limited by patient's size. IMPRESSION: No active cardiopulmonary disease. Inspiration decreased slightly compared to old exam.
--- NOTE | 2020-02-25 19:41 | CT ---
EXAMINATION TYPE: CT brain wo con DATE OF EXAM: 02/25/2020 COMPARISON: 01/15/2020 HISTORY: AMS CT DLP: 1072.4 mGycm Automated exposure control for dose reduction was used. There is mild cerebral atrophy. There is no mass effect nor midline shift. There is no sign of intrac ranial hemorrhage. The calvarium is intact. There is no evidence of cerebral edema. IMPRESSION: Mild atrophy. No acute intracranial abnormality.
[2020-02-25 19:44] LABS: Eosinophils # (M) 0.11 k/uL (0-0.7); Lymphocytes # (M) 2.27 k/uL (1.0-4.8); Metamyelocytes # (M) 0.11 k/uL (0); Metamyelocytes % 1 %; Monocytes # (M) 1.19 k/uL (0-1.0); Myelocytes # (M) 0.11 k/uL (0); Myelocytes % 1 %; Neutrophils # (M) 7.02 k/uL (1.3-7.7); Neutrophils % (M) 65 %; Nucleated Red Blood Cells 2 /100 WBC (0-0); Total Cells Counted 200; WBC 10.8 k/uL (3.8-10.6)
[2020-02-25 19:45] LABS: Stomatocytes Present
== END 2020-02-25 22:54 | disposition other institution (70) ==
LOC: EC 18:01
DX: R41.82 Altered mental status, unspecified (principal); F41.9 Anxiety disorder, unspecified; F32.9 Major depressive disorder, single episode, unspecified; F41.0 Panic disorder [episodic paroxysmal anxiety]; I25.10 Atherosclerotic heart disease of native coronary artery without angina pectoris; I50.9 Heart failure, unspecified; G20 Parkinson's disease; I11.0 Hypertensive heart disease with heart failure; E07.9 Disorder of thyroid, unspecified; G40.909 Epilepsy, unspecified, not intractable, without status epilepticus; M06.9 Rheumatoid arthritis, unspecified; L89.153 Pressure ulcer of sacral region, stage 3; J44.9 Chronic obstructive pulmonary disease, unspecified; Z79.01 Long term (current) use of anticoagulants; Z79.51 Long term (current) use of inhaled steroids; Z79.890 Hormone replacement therapy; Z79.899 Other long term (current) drug therapy; Z88.0 Allergy status to penicillin; Z80.8 Family history of malignant neoplasm of other organs or systems; Z88.1 Allergy status to other antibiotic agents; Z88.2 Allergy status to sulfonamides; Z88.5 Allergy status to narcotic agent; Z88.6 Allergy status to analgesic agent; Z88.8 Allergy status to other drugs, medicaments and biological substances; Z91.040 Latex allergy status; Z98.42 Cataract extraction status, left eye; Z98.41 Cataract extraction status, right eye; Z96.651 Presence of right artificial knee joint; Z96.643 Presence of artificial hip joint, bilateral; Z90.710 Acquired absence of both cervix and uterus; Z85.9 Personal history of malignant neoplasm, unspecified; Z86.73 Personal history of transient ischemic attack (TIA), and cerebral infarction without residual deficits
CPT/HCPCS: 36415; 70450; 71045; 80053; 81001; 85025; 85610; 85730; 87040; 93005; 96360; 96361; 99285

== ENCOUNTER 2020-04-14 15:34 | Inpatient (IN) | payer MEDICARE, OTHER ==
--- NOTE | 2020-04-14 16:41 | ED ---
General Adult HPI - General Chief complaint: Shortness of Breath Stated complaint: SOB, +Covid Time Seen by Provider: 04/14/20 15:40 Source: patient, EMS, RN notes reviewed, old records reviewed Mode of arrival: EMS Limitations: physical limitation - History of Present Illness Initial comments: This is a 74-year-old female presents emergency Department from a group home. Patient was COVID Positive at the facility. Patient's breathing is gotten worse over the last few days. They noted today that she was in the low 80s on pulse oximeter they sent her to the emergency department. Patient herself states she was feeling little short of breath earlier but feeling better now she is satting 97% on 10 L. Patient denies any chest pain or palpitations. Patient has any fever chills or cough per patient denies any abdominal pain patient denies naus ea vomiting diarrhea. - Related Data Home Medications Medication Instructions Recorded Confirmed Baclofen [Lioresal] 10 mg PO TID@0900,1300,2100 02/22/16 04/14/20 Folic Acid 1 mg PO DAILY@1300 02/22/16 04/14/20 Levothyroxine Sodium [Synthroid] 25 mcg PO DAILY@0600 02/22/16 04/14/20 busPIRone HCL 15 mg PO BID@0900,209902/22/16 04/14/20 levETIRAcetam [Keppra] 500 mg PO BID@0900,2100 02/22/16 04/14/20 Fluticasone/Vilanterol [Breo 1 puff INHALATION RT-DAILY@0900 05/15/18 04/14/20 Ellipta 100-25 Mcg Inhaler] Nitroglycerin Sl Tabs [Nitrostat] 0.4 mg SL Q5M PRN 05/15/18 04/14/20 Acetaminophen Tab [Tylenol] 650 mg PO Q4H PRN 06/13/18 04/14/20 Fluticasone Nasal [place] [Flonase 1 spray EA NOSTRIL BID PRN 06/13/18 04/14/20 Nasal [place]] Melatonin 10 mg PO HS@2100 06/14/18 04/14/20 Tofacitinib Citrate [Xeljanz Xr] 11 mg PO DAILY@0900 08/05/18 04/14/20 Dicyclomine [Bentyl] 10 mg PO BID@0900,209905/07/19 04/14/20 Loratadine [Claritin] 10 mg PO DAILY@89905/07/19 04/14/20 Pantoprazole Sodium [Protonix] 40 mg PO DAILY@59905/07/19 04/14/20 Prostat Awc 30 ml PO BID@0900,209905/07/19 04/14/20 atenoloL [Tenormin] 25 mg PO DAILY@89905/07/19 04/14/20 Apixaban [Eliquis] 5 mg PO BID@0900,209901/15/20 04/14/20 Carbidopa-Levodopa 25-100 mg 1 tab PO TID@0900,1300,209901/15/20 04/14/20 [Sinemet 25-100 mg] Furosemide [Lasix] 20 mg PO DAILY@59901/15/20 04/14/20 Ipratropium/Albuter 20-100Mcg 2 puff INHALATION RT-QID PRN 01/15/20 04/14/20 [Combivent Respimat 20-100Mcg Inhaler] Mag Hydrox/Aluminum Hyd/Simeth 30 ml PO Q4H PRN 01/15/20 04/14/20 [Mylanta Maximum Strength Liq] Psyllium [place] 100% [Metamucil 6 gm PO DAILY PRN 01/15/20 04/14/20 Packet] Sennosides/Docusate Sodium 2 tab PO HS@209901/15/20 04/14/20 [Senna-S 8.6-50 mg Tablet] Acetaminophen Tab [Tylenol] 500 mg PO DAILY@59904/14/20 04/14/20 Potassium Chloride [Klor-Con 20] 20 meq PO DAILY@89904/14/20 04/14/20 Sodium Chloride [Saline Nasal 2 spray EA NOSTRIL TID PRN 04/14/20 04/14/20 [place]] oxyCODONE-APAP 10-325MG [Percocet 1 tab PO QID@09,13,17,21 04/14/20 04/14/20 10-325 mg] traZODone HCL 150 mg PO HS@209904/14/20 04/14/20 Previous Rx's Medication Instructions Recorded ALPRAZolam [Xanax] 0.25 mg PO BID@1300,2100 #6 tab 01/19/20 Gabapentin 600 mg PO TID@0900,1300,2100 #9 tab 01/19/20 Allergies Allergy/AdvReac Type Severity Reaction Status Date / Time amitriptyline Allergy Unknown Verified 04/14/20 16:37 aspirin Allergy Unknown Verified 04/14/20 16:37 ciprofloxacin [From Cipro] Allergy Unknown Verified 04/14/20 16:37 codeine Allergy Hallucinati Verified 04/14/20 16:37 [From Tylenol-Codeine #3] ons ezetimibe Allergy Unknown Verified 04/14/20 16:37 fluoxetine [From Prozac] Allergy Unknown Verified 04/14/20 16:37 ibuprofen [From Motrin] Allergy Unknown Verified 04/14/20 16:37 indomethacin [From Indocin] Allergy Unknown Verified 04/14/20 16:37 Iodinated Contrast Media Allergy Unknown Verified 04/14/20 16:37 [Iodinated Contrast- Oral and IV Dye] niacin Allergy Unknown Verified 04/14/20 16:37 nitrofurantoin Allergy Unknown Verified 04/14/20 16:37 Penicillins Allergy Anaphylaxis Verified 04/14/20 16:37 pregabalin Allergy Unknown Verified 04/14/20 16:37 Mhploaz-Ftm-Hro Reductase Allergy Unknown Verified 04/14/20 16:37 Inhibitor Sulfa (Sulfonamide AdvReac Nausea & Verified 04/14/20 16:37 Antibiotics) Vomiting & Diarrhea Review of Systems ROS Statement: Those systems with pertinent positive or pertinent negative responses have been documented in the HPI. ROS Other: All systems not noted in ROS Statement are negative. 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 Bone removed and yaquelin placed left leg. Surgery for bowel obstruction x 2. Lyly cataracts Past Anesthesia/Blood Transfusion Reactions: No Reported Reaction Past Psychological History: Anxiety, Depression, Panic Disorder Smoking Status: Never smoker Past Alcohol Use History: None Reported Past Drug Use History: None Reported - Past Family History Mother History Unknown: Yes Family Medical History: CVA/TIA Father History Unknown: Yes Additional Family Medical History / Comment(s): father of blot clots 6mont hs after cabg Daughter(s) Family Medical History: Cancer Additional Family Medical History / Comment(s): bone General Exam - General Exam Comments Initial Comments: GENERAL: Patient is well-developed and well-nourished. Patient is nontoxic and well- hydrated and is in mild distress. ENT: Neck is soft and supple. No significant lymphadenopathy is noted. Oropharynx is clear. Moist mucous membranes. Neck has full range of motion without eliciting any pain. EYES: The sclera were anicteric and conjunctiva were pink and moist. Extraocular movements were intact and pupils were equal round and reactive to light. Eyelids were unremarkable. PULMONARY: Crackles in the bases bilaterally CARDIOVASCULAR: There is a regular rate and rhythm without any murmurs gallops or rubs. ABDOMEN: Soft and nontender with normal bowel sounds. SKIN: Skin is clear with no lesions or rashes and otherwise unremarkable. NEUROLOGIC: Patient is alert and oriented 2. Cranial nerves II through XII are grossly intact. MUSCULOSKELETAL: Patient is poor strength bilateral legs she states this is her baseline. No lower extremity swelling or edema. No calf tenderness. LYMPHATICS: No significant lymphadenopathy is noted PSYCHIATRIC: Normal psychiatric evaluation. Limitations: physical limitation Course Vital Signs 04/14/20 04/14/20 15:41 16:59 Temperature 98.5 F Pulse Rate 65 Respiratory 20 16 Rate Blood Pressure 105/75 O2 Sat by Pulse 94 L Oximetry Medical Decision Making - Medical Decision Making EKG shows normal sinus rhythm at 65 bpm MD interval is on a 76 QRS 60 QT interval 392 QTC is 407. Patient's EKG shows no ST segment elevation or depression. Chest x-ray shows pneumonia. Patient is calm and positives group home and I'm assuming is COVID pneumonia. I spoke with Dr. Delaney and he agreed to admit the patient admitted the patient wrote admitting orders - Lab Data Result diagrams: 04/14/20 16:36 04/14/20 16:36 Lab Results 04/14/20 04/14/20 04/14/20 Range/Units 16:36 16:36 16:36 WBC 6.5 (3.8-10.6) k/uL RBC 3.44 L (3.80-5.40) m/uL Hgb 9.1 L (11.4-16.0) gm/dL Hct 30.2 L (34.0-46.0) % MCV 87.7 (80.0-100.0) fL MCH 26.4 (25.0-35.0) pg MCHC 30.1 L (31.0-37.0) g/dL RDW 17.2 H (11.5-15.5) % Plt Count 312 (150-450) k/uL MPV 9.1 Neutrophils % 71 % Lymphocytes % 20 % Monocytes % 7 % Eosinophils % 0 % Basophils % 1 % Neutrophils # 4.6 (1.3-7.7) k/uL Lymphocytes # 1.3 (1.0-4.8) k/uL Monocytes # 0.4 (0-1.0) k/uL Eosinophils # 0.0 (0-0.7) k/uL Basophils # 0.0 (0-0.2) k/uL Hypochromasia Marked Anisocytosis Slight PT 10.3 (9.0-12.0) sec INR 1.0 (<1.2) APTT 29.5 (22.0-30.0) sec D-Dimer 0.82 H (<0.60) mg/L FEU Sodium 137 (137-145) mmol/L Potassium 4.6 (3.5-5.1) mmol/L Chloride 103 (98-107) mmol/L Carbon Dioxide 30 (22-30) mmol/L Anion Gap 4 mmol/L BUN 21 H (7-17) mg/dL Creatinine 1.28 H (0.52-1.04) mg/dL Est GFR (CKD-EPI)AfAm 49 (>60 ml/min/1.73 sqM) Est GFR (CKD-EPI)NonAf 42 (>60 ml/min/1.73 sqM) Glucose 113 H (74-99) mg/dL Plasma Lactic Acid Juan (0.7-2.0) mmol/L Calcium 8.6 (8.4-10.2) mg/dL Magnesium 2.1 (1.6-2.3) mg/dL Total Bilirubin 0.4 (0.2-1.3) mg/dL AST 70 H (14-36) U/L ALT 9 (4-34) U/L Alkaline Phosphatase 61 (38-126) U/L Lactate Dehydrogenase 1120 H (313-618) U/L C-Reactive Protein 55.6 H (<10.0) mg/L Total Protein 6.5 (6.3-8.2) g/dL Albumin 3.3 L (3.5-5.0) g/dL Influenza Type A RNA (Not Detectd) Influenza Type B (PCR) (Not Detectd) 04/14/20 04/14/20 Range/Units 16:36 16:36 WBC (3.8-10.6) k/uL RBC (3.80-5.40) m/uL Hgb (11.4-16.0) gm/dL Hct (34.0-46.0) % MCV (80.0-100.0) fL MCH (25.0-35.0) pg MCHC (31.0-37.0) g/dL RDW (11.5-15.5) % Plt Count (150-450) k/uL MPV Neutrophils % % Lymphocytes % % Monocytes % % Eosinophils % % Basophils % % Neutrophils # (1.3-7.7) k/uL Lymphocytes # (1.0-4.8) k/uL Monocytes # (0-1.0) k/uL Eosinophils # (0-0.7) k/uL Basophils # (0-0.2) k/uL Hypochromasia Anisocytosis PT (9.0-12.0) sec INR (<1.2) APTT (22.0-30.0) sec D-Dimer (<0.60) mg/L FEU Sodium (137-145) mmol/L Potassium (3.5-5.1) mmol/L Chloride (98-107) mmol/L Carbon Dioxide (22-30) mmol/L Anion Gap mmol/L BUN (7-17) mg/dL Creatinine (0.52-1.04) mg/dL Est GFR (CKD-EPI)AfAm (>60 ml/min/1.73 sqM) Est GFR (CKD-EPI)NonAf (>60 ml/min/1.73 sqM) Glucose (74-99) mg/dL Plasma Lactic Acid Juan 1.1 (0.7-2.0) mmol/L Calcium (8.4-10.2) mg/dL Magnesium (1.6-2.3) mg/dL Total Bilirubin (0.2-1.3) mg/dL AST (14-36) U/L ALT (4-34) U/L Alkaline Phosphatase (38-126) U/L Lactate Dehydrogenase (313-618) U/L C-Reactive Protein (<10.0) mg/L Total Protein (6.3-8.2) g/dL Albumin (3.5-5.0) g/dL Influenza Type A RNA Not Detected (Not Detectd) Influenza Type B (PCR) Not Detected (Not Detectd) Critical Care Time Critical Care Time: Yes Total Critical Care Time: 35 Disposition Clinical Impression: Pneumonia due to COVID-19 virus Disposition: ADMITTED IP TO THIS HOSP Referrals: Carolyn Delaney MD [Primary Care Provider] - 1-2 days Time of Disposition: 18:11
[2020-04-14 16:43] LABS: Anisocytosis Slight; Basophils % (A) 1 %; Eosinophils % (A) 0 %; HCT 30.2 % (34.0-46.0); HGB 9.1 gm/dL (11.4-16.0); Hypochromasia Marked; Lymphocytes # (A) 1.3 k/uL (1.0-4.8); Lymphocytes % (A) 20 %; MCH 26.4 pg (25.0-35.0); MCHC 30.1 g/dL (31.0-37.0); MCV 87.7 fL (80.0-100.0); Mean Platelet Volume 9.1; Monocytes # (A) 0.4 k/uL (0-1.0); Monocytes % (A) 7 %; Neutrophils # (A) 4.6 k/uL (1.3-7.7); Neutrophils % (A) 71 %; Platelet Count 312 k/uL (150-450); RBC 3.44 m/uL (3.80-5.40); RDW 17.2 % (11.5-15.5); WBC 6.5 k/uL (3.8-10.6)
--- NOTE | 2020-04-14 16:54 | XR ---
EXAMINATION TYPE: XR chest 1V portable DATE OF EXAM: 04/14/2020 COMPARISON: Prior chest x-ray 02/25/2020 HISTORY: Suspected Covid pneumonia, shortness of breath TECHNIQUE: Single frontal view of the chest is obtained. FINDINGS: Patient is rotated and there are overlying cardiac leads. Lung volumes are low. Cardiac me diastinal silhouette is stable accounting for differences in technique. Patchy basilar density is not ed bilaterally. There is no evident pneumothorax or sizable effusion. IMPRESSION: Findings are similar to prior exam. Changes of subsegmental basilar atelectatic changes or scarring, correlate for pneumonia follow-up PA and lateral chest x-ray may be of benefit
[2020-04-14 16:59] LABS: Albumin 3.3 g/dL (3.5-5.0); C Reactive Protein 55.6 mg/L (<10.0); Calcium 8.6 mg/dL (8.4-10.2); Magnesium 2.1 mg/dL (1.6-2.3); Potassium 4.6 mmol/L (3.5-5.1); Total Bilirubin 0.4 mg/dL (0.2-1.3); Total Protein 6.5 g/dL (6.3-8.2)
[2020-04-14 17:08] LABS: Partial Thromboplastin Time 29.5 sec (22.0-30.0); Prothrombin Time 10.3 sec (9.0-12.0)
[2020-04-14 17:20] LABS: D-Dimer 0.82 mg/L FEU (<0.60)
[2020-04-14] MEDS ORDERED: dexAMETHasone 2 MG TAB PO STA (18:10)
[2020-04-15] MEDS ORDERED: ALUMINUM HYD PO PRN (00:06)
[2020-04-15] MEDS ORDERED: FLUTICASONE 50MCG/SPRAY NASAL 16GM EA NOSTRIL PRN (00:06)
[2020-04-15] MEDS ORDERED: NITROGLYCERIN SL TABS 0.4 MG TAB SUBLINGUAL PRN (00:06)
[2020-04-15] MEDS ORDERED: ALBUTER INHALATION PRN (00:06)
[2020-04-15] MEDS ORDERED: PSYLLIUM HUSK 100% 6 GM PACKET PO PRN (00:06)
[2020-04-15] MEDS ORDERED: [UNRECOGNIZED DRUG - OTHER] PO PRN (00:06)
[2020-04-15] MEDS ORDERED: IPRATROPIUM INHALATION PRN (00:06)
[2020-04-15] MEDS ORDERED: MAG HYDROX PO PRN (00:06)
[2020-04-15] MEDS ORDERED: SODIUM CHLORIDE 0.65% NASAL SPRAY 44 ML BTL NASAL PRN (00:06)
[2020-04-15] MEDS: ALPRAZolam 0.25 MG TAB PO SCH ×3 (00:25→21:00)
[2020-04-15] MEDS: oxyCODONE-APAP 10-325MG 1 EACH TAB PO SCH ×5 (00:25→21:01)
[2020-04-15] MEDS: ACETAMINOPHEN TAB 325 MG TAB PO PRN (00:26)
[2020-04-15] MEDS ORDERED: ALBUTEROL HFA INHALER INHALATION PRN (05:18)
[2020-04-15] MEDS ORDERED: ACETAMINOPHEN TAB 500 MG TAB PO SCH (06:00)
[2020-04-15] MEDS ORDERED: FUROSEMIDE 20 MG TAB PO SCH (06:00)
[2020-04-15] MEDS ORDERED: PANTOPRAZOLE 40 MG TABLET PO SCH (06:00)
[2020-04-15] MEDS: LEVOTHYROXINE 25 MCG TAB PO SCH (07:11)
[2020-04-15] MEDS: ACETAMINOPHEN TAB 500 MG TAB PO SCH (07:11)
[2020-04-15] MEDS: FUROSEMIDE 20 MG TAB PO SCH (07:11)
[2020-04-15] MEDS: PANTOPRAZOLE 40 MG TABLET PO SCH (07:12)
[2020-04-15] MEDS ORDERED: SYMBICORT 80-4.5 MCG INHALER INHALATION SCH (08:00)
[2020-04-15] MEDS ORDERED: NON FORMULARY DRUG (Prostat Awc 30 ML) PO SCH (09:00)
[2020-04-15] MEDS: ASCORBIC ACID 500 MG TAB PO SCH (09:33)
[2020-04-15] MEDS: CARBIDOPA-LEVODOPA 25-100 MG 1 EACH TAB PO SCH ×3 (09:33→21:01)
[2020-04-15] MEDS: DICYCLOMINE 10 MG CAP PO SCH ×2 (09:33→21:01)
[2020-04-15] MEDS: BACLOFEN 10 MG TAB PO SCH ×3 (09:33→21:01)
[2020-04-15] MEDS: ZINC SULFATE 220 MG CAP PO SCH (09:33)
[2020-04-15] MEDS: POTASSIUM CHLORIDE ER 20 MEQ TAB.ER PO SCH (09:33)
[2020-04-15] MEDS: CHOLECALCIFEROL 1,000 UNIT TAB PO SCH (09:34)
[2020-04-15] MEDS: dexAMETHasone 2 MG TAB PO SCH (09:34)
[2020-04-15] MEDS: busPIRone HCl 10 MG TAB PO SCH ×2 (09:34→21:00)
[2020-04-15] MEDS: atenoloL 25 MG TAB PO SCH (09:34)
[2020-04-15] MEDS: APIXABAN 5 MG TAB PO SCH ×2 (09:34→21:01)
--- NOTE | 2020-04-15 10:00 | P.CONS ---
History of Present Illness - Reason for Consult Consult date: 04/15/20 wound care - History of Present Illness this is a 74-year-old patient known to the wound care center with a nonhealing ulceration to the coccyx. 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 Patient was being seen in the wound care center for an extended length of time however at this time she is getting wound care at [facility]. Patient was unable to say what is now being utilized to the ulceration. The area shows maceration excoriation no longer bone exposed. Review of Systems Review Of Systems: Constitutional: No fever, no chills, no night sweats. No weight change. No weakness, fatigue or lethargy. No daytime sleepiness. Integumentary:reports wounds, no lesions. No rash or pruritus. No unusual bruising. No change in hair or nails. Past Medical History Past Medical History: Atrial Fibrillation, Coronary Artery Disease (CAD), Cancer, Heart Failure, COPD, CVA/TIA, GERD/Reflux, Hyperlipidemia, Hypertension, Renal Disease, Rheumatoid Arthritis (RA), Seizure Disorder, Skin Disorder, Thyroid Disorder, Vascular Disorder Additional Past Medical History / Comment(s): parkinsons, diverticulitis, oxygen daily continously use unsure of how many liters, anus cancer,chronic pain syndrome, polyneuropathy, barretts esophagus, IBS, depression, rheumatoid arthritis, dementia, chronic kidney disease stage 4, fibromyalgia, anxiety, stage 4 on right buttock History of Any Multi-Drug Resistant Organisms: ESBL, Other MDRO, VRE Year Discovered:: 07/18/19 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 Bone removed and yaquelin placed left leg. Surgery for bowel obstruction x 2. Ion cataracts Past Anesthesia/Blood Transfusion Reactions: No Reported Reaction Past Psychological History: Anxiety, Depression, Panic Disorder Smoking Status: Never smoker Past Alcohol Use History: None Reported Additional Past Alcohol Use History / Comment(s): smoked since age 21, < 1 PPD. states quit smoking 8 months ago Past Drug Use History: None Reported - Past Family History Mother History Unknown: Yes Family Medical History: CVA/TIA Father History Unknown: Yes Additional Family Medical History / Comment(s): father of blot clots 6months after cabg Daughter(s) Family Medical History: Cancer Additional Family Medical History / Comment(s): bone Medications and Allergies Home Medications Medication Instructions Recorded Confirmed Type Baclofen [Lioresal] 10 mg PO TID@0900,1300,2100 02/22/16 04/14/20 History Folic Acid 1 mg PO DAILY@1300 02/22/16 04/14/20 History Levothyroxine Sodium [Synthroid] 25 mcg PO DAILY@0600 02/22/16 04/14/20 History busPIRone HCL 15 mg PO BID@0900,209902/22/16 04/14/20 History levETIRAcetam [Keppra] 500 mg PO BID@0900,2100 02/22/16 04/14/20 History Fluticasone/Vilanterol [Breo 1 puff INHALATION RT-DAILY@0905/15/18 04/14/20 History Ellipta 100-25 Mcg Inhaler] Nitroglycerin Sl Tabs [Nitrostat] 0.4 mg SL Q5M PRN 05/15/18 04/14/20 History Acetaminophen Tab [Tylenol] 650 mg PO Q4H PRN 06/13/18 04/14/20 History Fluticasone Nasal [place] [Flonase 1 spray EA NOSTRIL BID PRN 06/13/18 04/14/20 History Nasal [place]] Melatonin 10 mg PO HS@209906/14/18 04/14/20 History Tofacitinib Citrate [Xeljanz Xr] 11 mg PO DAILY@0900 08/05/18 04/14/20 History Dicyclomine [Bentyl] 10 mg PO BID@0900,2100 05/07/19 04/14/20 History Loratadine [Claritin] 10 mg PO DAILY@0900 05/07/19 04/14/20 History Pantoprazole Sodium [Protonix] 40 mg PO DAILY@0600 05/07/19 04/14/20 History Prostat Awc 30 ml PO BID@0900,2100 05/07/19 04/14/20 History atenoloL [Tenormin] 25 mg PO DAILY@0900 05/07/19 04/14/20 History Apixaban [Eliquis] 5 mg PO BID@0900,209901/15/20 04/14/20 History Carbidopa-Levodopa 25-100 mg 1 tab PO TID@0900,1300,209901/15/20 04/14/20 History [Sinemet 25-100 mg] Furosemide [Lasix] 20 mg PO DAILY@0600 01/15/20 04/14/20 History Ipratropium/Albuter 20-100Mcg 2 puff INHALATION RT-QID PRN 01/15/20 04/14/20 History [Combivent Respimat 20-100Mcg Inhaler] Mag Hydrox/Aluminum Hyd/Simeth 30 ml PO Q4H PRN 01/15/20 04/14/20 History [Mylanta Maximum Strength Liq] Psyllium Husk 100% [Metamucil 6 gm PO DAILY PRN 01/15/20 04/14/20 History Packet] Sennosides/Docusate Sodium 2 tab PO HS@209901/15/20 04/14/20 History [Senna-S 8.6-50 mg Tablet] ALPRAZolam [Xanax] 0.25 mg PO BID@1300,2100 #6 tab 01/19/20 04/14/20 Rx Gabapentin 600 mg PO TID@0900,1300,2100 #9 tab 01/19/20 04/14/20 Rx Acetaminophen Tab [Tylenol] 500 mg PO DAILY@0600 04/14/20 04/14/20 History Potassium Chloride [Klor-Con 20] 20 meq PO DAILY@0900 04/14/20 04/14/20 History Sodium Chloride [Saline Nasal 2 spray EA NOSTRIL TID PRN 04/14/20 04/14/20 History [place]] oxyCODONE-APAP 10-325MG [Percocet 1 tab PO QID@09,13,17,21 04/14/20 04/14/20 History 10-325 mg] traZODone HCL 150 mg PO HS@209904/14/20 04/14/20 History Allergies Allergy/AdvReac Type Severity Reaction Status Date / Time amitriptyline Allergy Unknown Verified 04/14/20 16:37 aspirin Allergy Unknown Verified 04/14/20 16:37 ciprofloxacin [From Cipro] Allergy Unknown Verified 04/14/20 16:37 codeine Allergy Hallucinati Verified 04/14/20 16:37 [From Tylenol-Codeine #3] ons ezetimibe Allergy Unknown Verified 04/14/20 16:37 fluoxetine [From Prozac] Allergy Unknown Verified 04/14/20 16:37 ibuprofen [From Motrin] Allergy Unknown Verified 04/14/20 16:37 indomethacin [From Indocin] Allergy Unknown Verified 04/14/20 16:37 Iodinated Contrast Media Allergy Unknown Verified 04/14/20 16:37 [Iodinated Contrast- Oral and IV Dye] niacin Allergy Unknown Verified 04/14/20 16:37 nitrofurantoin Allergy Unknown Verified 04/14/20 16:37 Penicillins Allergy Anaphylaxis Verified 04/14/20 16:37 pregabalin Allergy Unknown Verified 04/14/20 16:37 Ojsuhux-Zks-Vfl Reductase Allergy Unknown Verified 04/14/20 16:37 Inhibitor Sulfa (Sulfonamide AdvReac Nausea & Verified 04/14/20 16:37 Antibiotics) Vomiting & Diarrhea Physical Exam Vitals: Vital Signs Temp Pulse Pulse Resp BP BP Pulse Ox 04/15/20 04:29 97.4 F L 89 16 122/77 99 04/15/20 02:00 20 98 04/14/20 23:56 99.2 F 62 18 114/60 97 04/14/20 23:00 67 16 131/76 97 04/14/20 22:00 70 16 94 L 04/14/20 19:24 69 16 109/68 94 L 04/14/20 16:59 16 04/14/20 15:41 98.5 F 65 20 105/75 94 L Intake and Output 04/14/20 04/15/20 04/15/20 22:59 06:59 14:59 Intake Total 240 Output Total 100 Balance -100 240 Intake: Oral 240 Output: Urine 100 Other: Voiding Method Indwelling Catheter Weight 83.007 kg Physical exam: General Appearance: Alert, cooperative, no distress, appears stated age. Skin: full thickness open ulceration to the sacrum pressure ulcer grade 3 unable to palpate bone fascia is noted. There is undermining at 3:00 to 8:00 measuring approximately 1.3 cm. Granulation syndrome. Purulent shows increased maceration and excoriation with open ulcerations noted minimal granulation seen with Slough and nonviable tissue.all other Skin color, texture, tugor normal, no rashes or lesions. Neurologic: Alert oriented x3 Results CBC & Chem 7: 04/14/20 16:36 04/14/20 16:36 Labs: Abnormal Lab Results - Last 24 Hours (Table) 04/14/20 04/14/20 04/14/20 Range/Units 16:24 16:36 16:36 RBC 3.44 L (3.80-5.40) m/uL Hgb 9.1 L (11.4-16.0) gm/dL Hct 30.2 L (34.0-46.0) % MCHC 30.1 L (31.0-37.0) g/dL RDW 17.2 H (11.5-15.5) % D-Dimer 0.82 H (<0.60) mg/L FEU BUN (7-17) mg/dL Creatinine (0.52-1.04) mg/dL Glucose (74-99) mg/dL AST (14-36) U/L Lactate Dehydrogenase (313-618) U/L C-Reactive Protein (<10.0) mg/L Albumin (3.5-5.0) g/dL Procalcitonin 0.25 H (0.02-0.09) ng/mL 04/14/20 Range/Units 16:36 RBC (3.80-5.40) m/uL Hgb (11.4-16.0) gm/dL Hct (34.0-46.0) % MCHC (31.0-37.0) g/dL RDW (11.5-15.5) % D-Dimer (<0.60) mg/L FEU BUN 21 H (7-17) mg/dL Creatinine 1.28 H (0.52-1.04) mg/dL Glucose 113 H (74-99) mg/dL AST 70 H (14-36) U/L Lactate Dehydrogenase 1120 H (313-618) U/L C-Reactive Protein 55.6 H (<10.0) mg/L Albumin 3.3 L (3.5-5.0) g/dL Procalcitonin (0.02-0.09) ng/mL Assessment and Plan (1) Soft tissue radionecrosis Current Visit: Yes Status: Acute Code(s): L59.8 - OTH DISRD OF THE SKIN, SUBCU RELATED TO RADIATION; Y84.2 - RADIOLOG PROC/RADIOTHRPY CAUSE ABN REACT/COMPL, W/O MISADVNT SNOMED Code(s): 89983757 (2) Pressure ulcer of sacral region, stage 3 Current Visit: No Status: Acute Code(s): L89.153 - PRESSURE ULCER OF SACRAL REGION, STAGE 3 SNOMED Code(s): 275959754 Plan: apply absorptive silver, saline moistened gauze, dry gauze to the ulceration, periwound apply triad. Cover with a border foam sacrum dressing. Change Saturday and Saturday. Utilize the service algorithm for appropriate surface. Turn patient to every 8 hours. Thank you for the consultation any questions please contact the wound care center DNP note has been reviewed and discussed with Dr. Montejo and the impression and plan of care has been directed as dictated.
[2020-04-15] MEDS: levETIRAcetam 500 MG TAB PO SCH ×2 (10:47→21:01)
[2020-04-15] MEDS: LORATADINE 10 MG TAB PO SCH (10:47)
[2020-04-15] MEDS: GABAPENTIN 300 MG CAP PO SCH ×3 (10:47→21:01)
[2020-04-15] MEDS: Tofacitinib Citrate [Xeljanz Xr] 11 MG Tab.Er.24h PO SCH (10:48)
[2020-04-15] MEDS: SYMBICORT 80-4.5 MCG INHALER INHALATION SCH ×2 (13:40→19:37)
[2020-04-15] MEDS: FOLIC ACID 1 MG TAB PO SCH (13:48)
[2020-04-15] MEDS: HYDROPHILIC CREAM 180 GM TUBE TOPICAL SCH (13:49)
[2020-04-15 14:32] VITALS: BMI 32.4
--- NOTE | 2020-04-15 15:41 | P.HPIM ---
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 Patient recently tested positive at [facility] with rapid Covid testing reported yesterday to the nurse and patient experienced increasing difficulty with breathing with hypoxia, pulse ox down in the low 80s. Patient was having shortness of breath. No chest pain or palpitations. No fever or chills. No cough. Patient was transferred to [facility] emergency center for evaluation. Patient was afebrile, heart rate 65, blood pressure 105/75, pulse ox 94% EKG was a sinus rhythm with no acute ST changes. Chest x-ray positive for pneumonia Data CBC 6.5, hemoglobin 9.1, platelet count 312. Electrolytes normal. BUN 21 and creatinine 1.28. Blood sugar 113. AST 70. LDH 1120, C-reactive protein 55.6. Lactic acid 1.1. Influenza testing negative. Subsequently, COVID-19 ordered. Past Medical History Past Medical History: Atrial Fibrillation, Coronary Artery Disease (CAD), Cance r, Heart Failure, COPD, CVA/TIA, GERD/Reflux, Hyperlipidemia, Hypertension, Renal Disease, Rheumatoid Arthritis (RA), Seizure Disorder, Skin Disorder, Thyroid Disorder, Vascular Disorder Additional Past Medical History / Comment(s): parkinsons, diverticulitis, oxygen daily continously use unsure of how many liters, anus cancer,chronic pain syndrome, polyneuropathy, barretts esophagus, IBS, depression, rheumatoid arthritis, dementia, chronic kidney disease stage 4, fibromyalgia, anxiety, stage 4 on right buttock History of Any Multi-Drug Resistant Organisms: ESBL, Other MDRO, VRE Date of last positivie culture/infection: 07/18/19 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 Bone removed and yaquelin placed left leg. Surgery for bowel obstruction x 2. Ion cataracts Past Anesthesia/Blood Transfusion Reactions: No Reported Reaction Past Psychological History: Anxiety, Depression, Panic Disorder Smoking Status: Never smoker Past Alcohol Use History: None Reported Additional Past Alcohol Use History / Comment(s): smoked since age 21, < 1 PPD. states quit smoking 8 months ago Past Drug Use History: None Reported - Past Family History Mother History Unknown: Yes Family Medical History: CVA/TIA Father History Unknown: Yes Additional Family Medical History / Comment(s): father of blot clots 6months after cabg Daughter(s) Family Medical History: Cancer Additional Family Medical History / Comment(s): bone Medications and Allergies Home Medications Medication Instructions Recorded Confirmed Type Baclofen [Lioresal] 10 mg PO TID@0900,1300,2100 02/22/16 04/14/20 History Folic Acid 1 mg PO DAILY@1300 02/22/16 04/14/20 History Levothyroxine Sodium [Synthroid] 25 mcg PO DAILY@0600 02/22/16 04/14/20 History busPIRone HCL 15 mg PO BID@0900,2100 02/22/16 04/14/20 History levETIRAcetam [Keppra] 500 mg PO BID@0900,2100 02/22/16 04/14/20 History Fluticasone/Vilanterol [Breo 1 puff INHALATION RT-DAILY@0900 05/15/18 04/14/20 History Ellipta 100-25 Mcg Inhaler] Nitroglycerin Sl Tabs [Nitrostat] 0.4 mg SL Q5M PRN 05/15/18 04/14/20 History Acetaminophen Tab [Tylenol] 650 mg PO Q4H PRN 06/13/18 04/14/20 History Fluticasone Nasal [place] [Flonase 1 spray EA NOSTRIL BID PRN 06/13/18 04/14/20 History Nasal [place]] Melatonin 10 mg PO HS@2100 06/14/18 04/14/20 History Tofacitinib Citrate [Xeljanz Xr] 11 mg PO DAILY@89908/05/18 04/14/20 History Dicyclomine [Bentyl] 10 mg PO BID@899,209905/07/19 04/14/20 History Loratadine [Claritin] 10 mg PO DAILY@89905/07/19 04/14/20 History Pantoprazole Sodium [Protonix] 40 mg PO DAILY@59905/07/19 04/14/20 History Prostat Awc 30 ml PO BID@899,209905/07/19 04/14/20 History atenoloL [Tenormin] 25 mg PO DAILY@89905/07/19 04/14/20 History Apixaban [Eliquis] 5 mg PO BID@899,209901/15/20 04/14/20 History Carbidopa-Levodopa 25-100 mg 1 tab PO TID@0900,1300,209901/15/20 04/14/20 History [Sinemet 25-100 mg] Furosemide [Lasix] 20 mg PO DAILY@59901/15/20 04/14/20 History Ipratropium/Albuter 20-100Mcg 2 puff INHALATION RT-QID PRN 01/15/20 04/14/20 History [Combivent Respimat 20-100Mcg Inhaler] Mag Hydrox/Aluminum Hyd/Simeth 30 ml PO Q4H PRN 01/15/20 04/14/20 History [Mylanta Maximum Strength Liq] Psyllium Husk 100% [Metamucil 6 gm PO DAILY PRN 01/15/20 04/14/20 History Packet] Sennosides/Docusate Sodium 2 tab PO HS@209901/15/20 04/14/20 History [Senna-S 8.6-50 mg Tablet] ALPRAZolam [Xanax] 0.25 mg PO BID@1299,2099 #6 tab 01/19/20 04/14/20 Rx Gabapentin 600 mg PO TID@0900,1299,2099 #9 tab 01/19/20 04/14/20 Rx Acetaminophen Tab [Tylenol] 500 mg PO DAILY@0604/14/20 04/14/20 History Potassium Chloride [Klor-Con 20] 20 meq PO DAILY@0900 04/14/20 04/14/20 History Sodium Chloride [Saline Nasal 2 spray EA NOSTRIL TID PRN 04/14/20 04/14/20 History [place]] oxyCODONE-APAP 10-325MG [Percocet 1 tab PO QID@09,13,17,21 04/14/20 04/14/20 History 10-325 mg] traZODone HCL 150 mg PO HS@2100 04/14/20 04/14/20 History Allergies Allergy/AdvReac Type Severity Reaction Status Date / Time amitriptyline Allergy Unknown Verified 04/14/20 16:37 aspirin Allergy Unknown Verified 04/14/20 16:37 ciprofloxacin [From Cipro] Allergy Unknown Verified 04/14/20 16:37 codeine Allergy Hallucinati Verified 04/14/20 16:37 [From Tylenol-Codeine #3] ons ezetimibe Allergy Unknown Verified 04/14/20 16:37 fluoxetine [From Prozac] Allergy Unknown Verified 04/14/20 16:37 ibuprofen [From Motrin] Allergy Unknown Verified 04/14/20 16:37 indomethacin [From Indocin] Allergy Unknown Verified 04/14/20 16:37 Iodinated Contrast Media Allergy Unknown Verified 04/14/20 16:37 [Iodinated Contrast- Oral and IV Dye] niacin Allergy Unknown Verified 04/14/20 16:37 nitrofurantoin Allergy Unknown Verified 04/14/20 16:37 Penicillins Allergy Anaphylaxis Verified 04/14/20 16:37 pregabalin Allergy Unknown Verified 04/14/20 16:37 [id number]-Gcr-[id number] Reductase Allergy Unknown Verified 04/14/20 16:37 Inhibitor Sulfa (Sulfonamide AdvReac Nausea & Verified 04/14/20 16:37 Antibiotics) Vomiting & Diarrhea Physical Exam Vitals: Vital Signs Temp Pulse Pulse Pulse Resp BP BP 04/15/20 10:55 97.5 F L 68 20 127/73 04/15/20 08:00 70 H 04/15/20 04:29 97.4 F L 89 16 122/77 04/15/20 02:00 20 04/14/20 23:56 99.2 F 62 18 114/60 04/14/20 23:00 67 16 131/76 04/14/20 22:00 70 16 04/14/20 19:24 69 16 109/68 04/14/20 16:59 16 04/14/20 15:41 98.5 F 65 20 105/75 Pulse Ox 04/15/20 10:55 96 04/15/20 08:00 04/15/20 04:29 99 04/15/20 02:00 98 04/14/20 23:56 97 04/14/20 23:00 97 04/14/20 22:00 94 L 04/14/20 19:24 94 L 04/14/20 16:59 04/14/20 15:41 94 L Intake and Output 04/14/20 04/15/20 04/15/20 22:59 06:59 14:59 Intake Total 240 Output Total 100 Balance -100 240 Intake: Oral 240 Output: Urine 100 Other: Voiding Method Indwelling Catheter Indwelling Catheter # Voids 2 # Bowel Movements 1 Weight 83.007 kg 83.007 kg Physical examination: HEENT: Head is atraumatic, normocephalic, pupils were equal round reactive to l ight and accommodation, extraocular muscle movement intact, mucous membranes of the mouth are somewhat dry. Neck: Supple, no JVD, no carotid bruit. Chest: Decreased breath sounds at bases few rhonchi no expiratory wheezes, no chest wall tenderness, no intercostal retractions. Heart: First heart sound is depressed, second heart sounds normal, there is no gallop or murmur. Abdomen: Soft, minimal nonspecific tenderness no rebound or guarding positive bowel sounds Extremities: No pedal edema, dorsalis pedis +1 bilaterally. Neurologic examination: Patient is awake alert and oriented 3, cranial nerves 3-12 are grossly intact, muscle power 4 out of 5 in upper and lower extremities bilaterally. Results CBC & Chem 7: 04/21/20 06:26 04/21/20 06:26 Labs: Abnormal Lab Results - Last 24 Hours (Table) 04/14/20 04/14/20 04/14/20 Range/Units 16:24 16:36 16:36 RBC 3.44 L (3.80-5.40) m/uL Hgb 9.1 L (11.4-16.0) gm/dL Hct 30.2 L (34.0-46.0) % MCHC 30.1 L (31.0-37.0) g/dL RDW 17.2 H (11.5-15.5) % D-Dimer 0.82 H (<0.60) mg/L FEU BUN (7-17) mg/dL Creatinine (0.52-1.04) mg/dL Glucose (74-99) mg/dL AST (14-36) U/L Lactate Dehydrogenase (313-618) U/L C-Reactive Protein (<10.0) mg/L Albumin (3.5-5.0) g/dL Procalcitonin 0.25 H (0.02-0.09) ng/mL 04/14/20 Range/Units 16:36 RBC (3.80-5.40) m/uL Hgb (11.4-16.0) gm/dL Hct (34.0-46.0) % MCHC (31.0-37.0) g/dL RDW (11.5-15.5) % D-Dimer (<0.60) mg/L FEU BUN 21 H (7-17) mg/dL Creatinine 1.28 H (0.52-1.04) mg/dL Glucose 113 H (74-99) mg/dL AST 70 H (14-36) U/L Lactate Dehydrogenase 1120 H (313-618) U/L C-Reactive Protein 55.6 H (<10.0) mg/L Albumin 3.3 L (3.5-5.0) g/dL Procalcitonin (0.02-0.09) ng/mL Thrombosis Risk Factor Assmnt - DVT/VTE Prophylaxis DVT/VTE Prophylaxis: Pharmacologic Prophylaxis ordered - Choose All That Apply Each Factor Represents 1 point: Abnormal pulmonary function (COPD), Medical pt on bed rest, Obesity (BMI >25) Other Risk Factors: Yes Each Risk Factor Represents 2 Points: Age 61-74 years, Patient confined to bed Other congenital or acquired thrombophilia - If yes, enter type in comment: No Thrombosis Risk Factor Assessment Total Risk Factor Score: 7 Thrombosis Risk Factor Assessment Level: High Risk Assessment and Plan Assessment: Assessment and Plan: 1. Acute hypoxic respiratory failure secondary to COVID-19 pneumonia. Patient minutes to the [facility] floor. Patient started on azithromycin 500 mg IV piggyback daily, ceftriaxone 1 g IV piggyback daily, dexamethasone 6 mg oral daily, vitamin C 500 mg daily, vitamin D 5000 units daily, continue Eliquis 5 mg twice daily, zinc 220 mg daily, albuterol inhaler 4 times daily as needed. Consult with pulmonary medicine we will continue with high flow Oxygen/ 2. Elevated d-dimer secondary to Covid 19.we will continue with Eliquis 5 mg orally bid. 3. Chronic kidney disease stage III, stable.we will continue to monitor CMP. 4. Hypertension. Continue atenolol 25 mg daily. 5. History of bilateral PE and bilateral DVT on lifelong anticoagulation with Eliquis 5 mg orally bid. 6. Hemiparesis left side from previous CVA.we will continue with monitoring. 7. Parkinson's disease.we will continue with Sinemet 25/100 g po tid. 8. Hypothyroidism.we will continue with Synthroid 25 mcg orally daily. 9. Seizure disorder.stable. 10. Anemia of chronic kidney disease.we will continue to monitor CBC closely. 11. Chronic hypoxic respiratory failure and now with COVD-19 requiring high flow oxygen. 12. Chronic sacral ulcer stage III nonhealing. has been under the wound care team at [facility] . 13. Recurrent depression, anxiety and panic attacks we will continue with Xanax as needed. 14. History of colorectal cancer status post radiation cellulitis of sacrum. 15. Patient admitted to the hospital for a minimum of 2 night stay. 16. Discharge plan: Return to [facility] 17. Very guarded prognosis.
[2020-04-15] MEDS: AZITHROMYCIN 500 MG in SODIUM CHLORIDE 0.9% 250 ML IVPB SCH (16:54)
--- NOTE | 2020-04-15 17:20 | P.CNPUL ---
History of Present Illness Consult date: 04/15/20 Requesting physician: Carolyn Delaney Reason for consult: dyspnea, abnormal CXR/CT Chief complaint: Shortness of breath, hypoxemia History of present illness: This is a 74-year-old female patient who resides at [facility] on the [facility]. She has a history of hypothyroidism, seizures, chronic obstructive pulmonary disease, CVA/TIA, hypertension, hyperlipidemia, rheumatoid arthritis, Parkinson's disease with tremors, anxiety/depression, panic disorder. Lifelong nonsmoker. He was brought into the emergency room today after being tested positive for CoVID and having low O2 saturations at the facility. She is seen today in consultation on the regular medical floor. She is currently awake and alert. She does have essential tremors. He is currently on 15 L high flow nasal cannula maintaining O2 saturations in the mid 90s. She's afebrile. Hemodynamically stable. Chest x-ray revealing low lung volumes. Patchy basilar density bilaterally. No sizable effusion. White count 6.5. Hemoglobin 9.1. D-dimer 0.82. Sodium 137. Potassium 4.6. Creatinine 1.28. LDH 1120. C-re active protein 55.6. Pro-calcitonin 0.25. Influenza screen not detected. She is currently on azithromycin and ceftriaxone. Symbicort, albuterol.. Anticoagulated with Eliquis. Initiated on dexamethasone, vitamin C, vitamin D, zinc, melatonin, Pepcid. Review of Systems ROS unobtainable: due to mental status Past Medical History Past Medical History: Atrial Fibrillation, Coronary Artery Disease (CAD), Cancer, Heart Failure, COPD, CVA/TIA, GERD/Reflux, Hyperlipidemia, Hypertension, Renal Disease, Rheumatoid Arthritis (RA), Seizure Disorder, Skin Disorder, Thyroid Disorder, Vascular Disorder Additional Past Medical History / Comment(s): parkinsons, diverticulitis, oxygen daily continously use unsure of how many liters, anus cancer,chronic pain syndrome, polyneuropathy, barretts esophagus, IBS, depression, rheumatoid arthritis, dementia, chronic kidney disease stage 4, fibromyalgia, anxiety, stage 4 on right buttock History of Any Multi-Drug Resistant Organisms: ESBL, Other MDRO, VRE Date of last positivie culture/infection: 07/18/19 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 Bone removed and yaquelin placed left leg. Surgery for bowel ob struction x 2. Lyly cataracts Past Anesthesia/Blood Transfusion Reactions: No Reported Reaction Past Psychological History: Anxiety, Depression, Panic Disorder Smoking Status: Never smoker Past Alcohol Use History: None Reported Additional Past Alcohol Use History / Comment(s): smoked since age 21, < 1 PPD. states quit smoking 8 months ago Past Drug Use History: None Reported - Past Family History Mother History Unknown: Yes Family Medical History: CVA/TIA Father History Unknown: Yes Additional Family Medical History / Comment(s): father of blot clots 6months after cabg Daughter(s) Family Medical History: Cancer Additional Family Medical History / Comment(s): bone Medications and Allergies Home Medications Medication Instructions Recorded Confirmed Type Baclofen [Lioresal] 10 mg PO TID@0900,1300,2100 02/22/16 04/14/20 History Folic Acid 1 mg PO DAILY@1300 02/22/16 04/14/20 History Levothyroxine Sodium [Synthroid] 25 mcg PO DAILY@0600 02/22/16 04/14/20 History busPIRone HCL 15 mg PO BID@0900,2100 02/22/16 04/14/20 History levETIRAcetam [Keppra] 500 mg PO BID@0900,2100 02/22/16 04/14/20 History Fluticasone/Vilanterol [Breo 1 puff INHALATION RT-DAILY@0905/15/18 04/14/20 H istory Ellipta 100-25 Mcg Inhaler] Nitroglycerin Sl Tabs [Nitrostat] 0.4 mg SL Q5M PRN 05/15/18 04/14/20 History Acetaminophen Tab [Tylenol] 650 mg PO Q4H PRN 06/13/18 04/14/20 History Fluticasone Nasal [place] [Flonase 1 spray EA NOSTRIL BID PRN 06/13/18 04/14/20 History Nasal [place]] Melatonin 10 mg PO HS@2100 06/14/18 04/14/20 History Tofacitinib Citrate [Xeljanz Xr] 11 mg PO DAILY@0900 26/19 12/03/20 History Dicyclomine [Bentyl] 10 mg PO BID@899,209905/07/19 04/14/20 History Loratadine [Claritin] 10 mg PO DAILY@89905/07/19 04/14/20 History Pantoprazole Sodium [Protonix] 40 mg PO DAILY@59905/07/19 04/14/20 History Prostat Awc 30 ml PO BID@899,209905/07/19 04/14/20 History atenoloL [Tenormin] 25 mg PO DAILY@89905/07/19 04/14/20 History Apixaban [Eliquis] 5 mg PO BID@899,209901/15/20 04/14/20 History Carbidopa-Levodopa 25-100 mg 1 tab PO TID@0900,1300,209901/15/20 04/14/20 History [Sinemet 25-100 mg] Furosemide [Lasix] 20 mg PO DAILY@59901/15/20 04/14/20 History Ipratropium/Albuter 20-100Mcg 2 puff INHALATION RT-QID PRN 01/15/20 04/14/20 History [Combivent Respimat 20-100Mcg Inhaler] Mag Hydrox/Aluminum Hyd/Simeth 30 ml PO Q4H PRN 01/15/20 04/14/20 History [Mylanta Maximum Strength Liq] Psyllium Husk 100% [Metamucil 6 gm PO DAILY PRN 01/15/20 04/14/20 History Packet] Sennosides/Docusate Sodium 2 tab PO HS@209901/15/20 04/14/20 History [Senna-S 8.6-50 mg Tablet] ALPRAZolam [Xanax] 0.25 mg PO BID@1299,2099 #6 tab 01/19/20 04/14/20 Rx Gabapentin 600 mg PO TID@0900,1299,2099 #9 tab 01/19/20 04/14/20 Rx Acetaminophen Tab [Tylenol] 500 mg PO DAILY@0604/14/20 04/14/20 History Potassium Chloride [Klor-Con 20] 20 meq PO DAILY@89904/14/20 04/14/20 History Sodium Chloride [Saline Nasal 2 spray EA NOSTRIL TID PRN 04/14/20 04/14/20 History [place]] oxyCODONE-APAP 10-325MG [Percocet 1 tab PO QID@09,13,17,21 04/14/20 04/14/20 History 10-325 mg] traZODone HCL 150 mg PO HS@2100 04/14/20 04/14/20 History Allergies Allergy/AdvReac Type Severity Reaction Status Date / Time amitriptyline Allergy Unknown Verified 04/14/20 16:37 aspirin Allergy Unknown Verified 04/14/20 16:37 ciprofloxacin [From Cipro] Allergy Unknown Verified 04/14/20 16:37 codeine Allergy Hallucinati Verified 04/14/20 16:37 [From Tylenol-Codeine #3] ons ezetimibe Allergy Unknown Verified 04/14/20 16:37 fluoxetine [From Prozac] Allergy Unknown Verified 04/14/20 16:37 ibuprofen [From Motrin] Allergy Unknown Verified 04/14/20 16:37 indomethacin [From Indocin] Allergy Unknown Verified 04/14/20 16:37 Iodinated Contrast Media Allergy Unknown Verified 04/14/20 16:37 [Iodinated Contrast- Oral and IV Dye] niacin Allergy Unknown Verified 04/14/20 16:37 nitrofurantoin Allergy Unknown Verified 04/14/20 16:37 Penicillins Allergy Anaphylaxis Verified 04/14/20 16:37 pregabalin Allergy Unknown Verified 04/14/20 16:37 Lghppsd-Lgi-Bea Reductase Allergy Unknown Verified 04/14/20 16:37 Inhibitor Sulfa (Sulfonamide AdvReac Nausea & Verified 04/14/20 16:37 Antibiotics) Vomiting & Diarrhea Physical Exam Vitals: Vital Signs Temp Pulse Pulse Pulse Resp BP BP 04/15/20 10:55 97.5 F L 68 20 127/73 04/15/20 08:00 70 H 04/15/20 04:29 97.4 F L 89 16 122/77 04/15/20 02:00 20 04/14/20 23:56 99.2 F 62 18 114/60 04/14/20 23:00 67 16 131/76 04/14/20 22:00 70 16 04/14/20 19:24 69 16 109/68 Pulse Ox 04/15/20 10:55 96 04/15/20 08:00 04/15/20 04:29 99 04/15/20 02:00 98 04/14/20 23:56 97 04/14/20 23:00 97 04/14/20 22:00 94 L 04/14/20 19:24 94 L Intake and Output 04/15/20 04/15/20 04/15/20 06:59 14:59 22:59 Intake Total 240 Output Total 100 Balance -100 240 Intake: Oral 240 Output: Urine 100 Other: Voiding Method Indwelling Catheter Indwelling Catheter # Voids 2 # Bowel Movements 1 Weight 83.007 kg GENERAL EXAM: Alert, confused, 74-year-old female patient, Parkinson tremors, on 15 L high flow nasal cannula, fairly comfortable in no apparent distress. HEAD: Normocephalic. EYES: Normal reaction of pupils, equal size. NOSE: Clear with pink turbinates. THROAT: No erythema or exudates. NECK: No masses, no JVD. CHEST: No chest wall deformity. LUNGS: Equal air entry with bilateral scattered rhonchi CVS: S1 and S2 normal with no audible murmur, regular rhythm. ABDOMEN: No hepatosplenomegaly, normal bowel sounds, no guarding or rigidity. SPINE: No scoliosis or deformity SKIN: Chronic sacral decubitus ulcer CENTRAL NERVOUS SYSTEM: Essential tremors, left-sided hemiparesis from previous CVA, tone is normal in all 4 extremities. EXTREMITIES: There is no peripheral edema. No clubbing, no cyanosis. Peripheral pulses are intact. Results - Laboratory Findings CBC and BMP: 04/14/20 16:36 04/14/20 16:36 PT/INR, D-dimer PT 10.3 sec (9.0-12.0) 04/14/20 16:36 INR 1.0 (<1.2) 04/14/20 16:36 D-Dimer 0.82 mg/L FEU (<0.60) H 04/14/20 16:36 Abnormal lab findings: Abnormal Labs 04/14/20 04/14/20 04/14/20 16:24 16:36 16:36 RBC 3.44 L Hgb 9.1 L Hct 30.2 L MCHC 30.1 L RDW 17.2 H D-Dimer 0.82 H BUN Creatinine Glucose AST Lactate Dehydrogenase C-Reactive Protein Albumin Procalcitonin 0.25 H 04/14/20 16:36 RBC Hgb Hct MCHC RDW D-Dimer BUN 21 H Creatinine 1.28 H Glucose 113 H AST 70 H Lactate Dehydrogenase 1120 H C-Reactive Protein 55.6 H Albumin 3.3 L Procalcitonin - Diagnostic Findings Chest x-ray: image reviewed Assessment and Plan Assessment: 1 Acute hypoxic respiratory failure secondary to acute CoVID 19 pneumonitis 2 Elevated d-dimer secondary to cover 19. On Eliquis. 3 History of bilateral PE and bilateral DVT on Eliquis in the outpatient setting 4 Chronic hypoxic respiratory failure on oxygen at 2-3 L 5 History of CVA with left-sided romi-paresis 6 Parkinson's disease with tremors 7 History of seizures 8 Hypertension 9 Chronic kidney disease stage III 10 Hypertension 11 Hypothyroidism 12 Chronic sacral ulcer stage III nonhealing 13 History of colorectal cancer status post radiation 14 History of anxiety/depression/panic attacks 15 Poor overall functional performance based on the above-mentioned multiple comorbidities, [facility] resident Plan: The patient was seen and evaluated by Dr. Townsend We'll continue with the current treatment plan Anticoagulated with Eliquis On antibiotics and bronchodilators Titrate the FiO2 as tolerated We'll continue to follow and make further recommendations based on her clinical status I, the cosigning physician, performed a history & physical examination of the patient. Lungs sounds with bilateral scattered rhonchi. Maintaining good O2 saturations in the 90s on 15 L high flow nasal cannula. I discussed the assessment and plan of care with my nurse practitioner, Alycia Lancaster. I attest to the above consultation as dictated by her. Time with Patient: Greater than 30
[2020-04-15] MEDS: ALBUTEROL HFA INHALER INHALATION SCH (19:37)
[2020-04-15] MEDS: SENNOSIDES-DOCUSATE SODIUM 1 EACH TAB PO SCH (21:00)
[2020-04-15] MEDS: traZODone HCL 50 MG TAB PO SCH (21:01)
[2020-04-15] MEDS: MELATONIN 5 MG TABLET PO SCH (21:01)
[2020-04-16] MEDS: PANTOPRAZOLE 40 MG TABLET PO SCH (05:59)
[2020-04-16] MEDS: ACETAMINOPHEN TAB 500 MG TAB PO SCH (05:59)
[2020-04-16] MEDS: LEVOTHYROXINE 25 MCG TAB PO SCH (05:59)
[2020-04-16] MEDS: FUROSEMIDE 20 MG TAB PO SCH (05:59)
[2020-04-16] MEDS: ASCORBIC ACID 500 MG TAB PO SCH (07:58)
[2020-04-16] MEDS: busPIRone HCl 10 MG TAB PO SCH ×2 (07:58→20:33)
[2020-04-16] MEDS: POTASSIUM CHLORIDE ER 20 MEQ TAB.ER PO SCH (07:58)
[2020-04-16] MEDS: LORATADINE 10 MG TAB PO SCH (07:58)
[2020-04-16] MEDS: APIXABAN 5 MG TAB PO SCH ×2 (07:58→20:32)
[2020-04-16] MEDS: ZINC SULFATE 220 MG CAP PO SCH (07:58)
[2020-04-16] MEDS: GABAPENTIN 300 MG CAP PO SCH ×3 (07:59→20:33)
[2020-04-16] MEDS: CHOLECALCIFEROL 1,000 UNIT TAB PO SCH (07:59)
[2020-04-16] MEDS: dexAMETHasone 2 MG TAB PO SCH (07:59)
[2020-04-16] MEDS: CARBIDOPA-LEVODOPA 25-100 MG 1 EACH TAB PO SCH ×3 (08:00→20:33)
[2020-04-16] MEDS: DICYCLOMINE 10 MG CAP PO SCH ×2 (08:00→20:33)
[2020-04-16] MEDS: levETIRAcetam 500 MG TAB PO SCH ×2 (08:00→20:33)
[2020-04-16] MEDS: atenoloL 25 MG TAB PO SCH (08:00)
[2020-04-16] MEDS: BACLOFEN 10 MG TAB PO SCH ×3 (08:00→20:33)
[2020-04-16] MEDS: oxyCODONE-APAP 10-325MG 1 EACH TAB PO SCH ×4 (08:02→20:32)
[2020-04-16] MEDS: Tofacitinib Citrate [Xeljanz Xr] 11 MG Tab.Er.24h PO SCH (08:05)
[2020-04-16] MEDS: SYMBICORT 80-4.5 MCG INHALER INHALATION SCH ×2 (08:47→19:40)
[2020-04-16] MEDS: ALBUTEROL HFA INHALER INHALATION SCH ×4 (08:47→19:40)
[2020-04-16] MEDS: ALPRAZolam 0.25 MG TAB PO SCH ×2 (12:41→20:33)
[2020-04-16] MEDS: FOLIC ACID 1 MG TAB PO SCH (12:41)
--- NOTE | 2020-04-16 14:23 | P.PN ---
Subjective Progress Note Date: 04/16/20 Principal diagnosis: CoVID 19 pneumonitis This is a 74-year-old female patient who resides at [facility] on the [facility]. She has a history of hypothyroidism, seizures, chronic obstructive pulmonary disease, CVA/TIA, hypertension, hyperlipidemia, rheumatoid arthritis, Parkinson's disease with tremors, anxiety/depression, panic disorder. Lifelong nonsmoker. He was brought into the emergency room today after being tested positive for CoVID and having low O2 saturations at the facility. She is seen today in consultation on the regular medical floor. She is currently awake and alert. She does have essential tremors. He is currently on 15 L high flow nasal cannula maintaining O2 saturations in the mid 90s. She's afebrile. Hemodynamically stable. Chest x-ray revealing low lung volumes. Patchy basilar density bilaterally. No sizable effusion. White count 6.5. Hemoglobin 9.1. D-dimer 0.82. Sodium 137. Potassium 4.6. Creatinine 1.28. LDH 1120. C- reactive protein 55.6. Pro-calcitonin 0.25. Influenza screen not detected. She is currently on azithromycin and ceftriaxone. Symbicort, albuterol.. Anticoagulated with Eliquis. Initiated on dexamethasone, vitamin C, vitamin D, zinc, melatonin, Pepcid. The patient is seen today 04/16/2020 in follow-up on the regular medical floor. She is currently resting on 2 L. Awake and alert in no acute distress. He is requiring 15 L high flow nasal cannula to maintain O2 saturations in the mid 90 s. She is afebrile. She remains on antibiotics in the form of ceftriaxone and azithromycin. Continued on bronchodilators. Anticoagulated with Eliquis. He remains on dexamethasone, vitamin C, vitamin D, zinc, melatonin, Pepcid Objective - Vital Signs Vital signs: Vital Signs Temp 97.5 F L 04/16/20 11:00 Pulse 56 L 04/16/20 11:00 Resp 18 04/16/20 11:00 BP 123/68 04/16/20 11:00 Pulse Ox 98 04/16/20 11:00 Intake & Output 04/15/20 04/16/20 04/16/20 18:59 06:59 18:59 Intake Total 540 237 Output Total 300 650 Balance 240 -413 Weight 83.007 kg Intake: Intake, IV Titration 300 Amount Azithromycin 500 mg In 250 Sodium Chloride 0.9% 250 ml @ 250 mls/hr IVPB Q24H ISAEL Rx#:[id number] cefTRIAXone 1 gm In 50 Sodium Chloride 0.9% 50 ml @ 100 mls/hr IVPB Q24HR ISAEL Rx#:[id number] Oral 240 237 Output: Urine 300 650 Uretheral (Arceo) 475 Other: Voiding Method Indwelling Catheter Indwelling Catheter Indwelling Catheter # Voids 2 # Bowel Movements 1 - Exam GENERAL EXAM: Alert, confused, 74-year-old female patient, Parkinson tremors, on 15 L high flow nasal cannula, fairly comfortable in no apparent distress. HEAD: Normocephalic. EYES: Normal reaction of pupils, equal size. NOSE: Clear with pink turbinates. THROAT: No erythema or exudates. NECK: No masses, no JVD. CHEST: No chest wall deformity. LUNGS: Equal air entry with bilateral scattered rhonchi CVS: S1 and S2 normal with no audible murmur, regular rhythm. ABDOMEN: No hepatosplenomegaly, normal bowel sounds, no guarding or rigidity. SPINE: No scoliosis or deformity SKIN: Chronic sacral decubitus ulcer CENTRAL NERVOUS SYSTEM: Essential tremors, left-sided hemiparesis from previous CVA, tone is normal in all 4 extremities. EXTREMITIES: There is no peripheral edema. No clubbing, no cyanosis. Peripheral pulses are intact. - Labs CBC & Chem 7: 04/14/20 16:36 04/14/20 16:36 Labs: Abnormal Lab Results - Last 24 Hours (Table) 04/15/20 Range/Units 15:08 Coronavirus (PCR) Detected A (Not Detectd) Microbiology - Last 24 Hours (Table) 04/14/20 16:36 Blood Culture - Preliminary Blood No Growth after 24 hours Assessment and Plan Assessment: 1 Acute on chronic hypoxic respiratory failure secondary to acute CoVID 19 pneumonitis 2 Elevated d-dimer secondary to CoVID 19. On Eliquis. 3 History of bilateral PE and bilateral DVT on Eliquis in the outpatient setting 4 Chronic hypoxic respiratory failure on oxygen at 2-3 L 5 History of CVA with left-sided romi-paresis 6 Parkinson's disease with tremors 7 History of seizures 8 Hypertension 9 Chronic kidney disease stage III 10 Hypertension 11 Hypothyroidism 12 Chronic sacral ulcer stage III nonhealing 13 History of colorectal cancer status post radiation 14 History of anxiety/depression/panic attacks 15 Poor overall functional performance based on the above-mentioned multiple comorbidities, [facility] resident Plan: The patient was seen and evaluated by Dr. Townsend We'll continue with the current treatment plan Anticoagulated with Eliquis On antibiotics and bronchodilators Titrate the FiO2 as tolerated Repeat chest x-ray and inflammatory markers in the a.m. We'll continue to follow and make further recommendations based on her clinical status I, the cosigning physician, performed a history & physical examination of the patient. Lungs sounds with bilateral scattered rhonchi. Maintaining good O2 saturations in the 90s on 15 L high flow nasal cannula. I discussed the assessment and plan of care with my nurse practitioner, Alycia Lancaster. I attest to the above note as dictated by her.
[2020-04-16] MEDS: AZITHROMYCIN 500 MG in SODIUM CHLORIDE 0.9% 250 ML IVPB SCH (15:25)
[2020-04-16] MEDS: MELATONIN 5 MG TABLET PO SCH (20:32)
[2020-04-16] MEDS: SENNOSIDES-DOCUSATE SODIUM 1 EACH TAB PO SCH (20:34)
[2020-04-16] MEDS: traZODone HCL 50 MG TAB PO SCH (20:34)
[2020-04-17] MEDS: PANTOPRAZOLE 40 MG TABLET PO SCH (06:07)
[2020-04-17] MEDS: ACETAMINOPHEN TAB 500 MG TAB PO SCH (06:07)
[2020-04-17] MEDS: FUROSEMIDE 20 MG TAB PO SCH (06:07)
[2020-04-17] MEDS: LEVOTHYROXINE 25 MCG TAB PO SCH (06:07)
[2020-04-17] MEDS: ASCORBIC ACID 500 MG TAB PO SCH (07:33)
[2020-04-17] MEDS: busPIRone HCl 10 MG TAB PO SCH ×2 (07:33→21:59)
[2020-04-17] MEDS: Tofacitinib Citrate [Xeljanz Xr] 11 MG Tab.Er.24h PO SCH (07:34)
[2020-04-17] MEDS: oxyCODONE-APAP 10-325MG 1 EACH TAB PO SCH ×4 (07:34→21:59)
[2020-04-17] MEDS: ZINC SULFATE 220 MG CAP PO SCH (07:34)
[2020-04-17] MEDS: APIXABAN 5 MG TAB PO SCH ×2 (07:35→22:00)
[2020-04-17] MEDS: CHOLECALCIFEROL 1,000 UNIT TAB PO SCH (07:35)
[2020-04-17] MEDS: dexAMETHasone 2 MG TAB PO SCH (07:35)
[2020-04-17] MEDS: levETIRAcetam 500 MG TAB PO SCH ×2 (07:35→22:00)
[2020-04-17] MEDS: CARBIDOPA-LEVODOPA 25-100 MG 1 EACH TAB PO SCH ×3 (07:35→22:00)
[2020-04-17] MEDS: atenoloL 25 MG TAB PO SCH (07:36)
[2020-04-17] MEDS: LORATADINE 10 MG TAB PO SCH (07:36)
[2020-04-17] MEDS: DICYCLOMINE 10 MG CAP PO SCH ×2 (07:36→22:00)
[2020-04-17] MEDS: BACLOFEN 10 MG TAB PO SCH ×3 (07:36→21:59)
[2020-04-17] MEDS: POTASSIUM CHLORIDE ER 20 MEQ TAB.ER PO SCH (07:36)
[2020-04-17] MEDS: GABAPENTIN 300 MG CAP PO SCH ×3 (07:36→22:00)
--- NOTE | 2020-04-17 08:01 | XR ---
EXAMINATION TYPE: XR chest 1V DATE OF EXAM: 04/17/2020 COMPARISON: 04/14/2020 HISTORY: 74-year-old female COVID pneumonia TECHNIQUE: Single frontal view of the chest is obtained. FINDINGS: Heart normal size. Mild patchy opacities left mid and lower lung increased from prior. Convexly jennifer nated lucency projecting over the left mediastinum suspected lung margin displaced by patient rotatio n. Attention on follow-up. No pneumothorax is visualized. IMPRESSION: 1. Mild patchy infiltrates throughout the left mid and lower lung increased from 04/14/2020. 2. Suspect projectional/rotational artifact along the left mediastinum with convexly marginated lucen cy likely relating to the right lung margin. Attention on follow-up.
[2020-04-17] MEDS: SYMBICORT 80-4.5 MCG INHALER INHALATION SCH ×3 (08:32→21:33)
[2020-04-17] MEDS: ALBUTEROL HFA INHALER INHALATION SCH ×5 (08:32→21:32)
[2020-04-17] MEDS: FOLIC ACID 1 MG TAB PO SCH (12:18)
[2020-04-17] MEDS: ALPRAZolam 0.25 MG TAB PO SCH ×2 (12:18→21:59)
[2020-04-17 12:39] LABS: C Reactive Protein 2.5 mg/dL (0.0-0.8)
[2020-04-17] MEDS: AZITHROMYCIN 500 MG in SODIUM CHLORIDE 0.9% 250 ML IVPB SCH (14:51)
--- NOTE | 2020-04-17 14:55 | P.PN ---
Subjective Progress Note Date: 04/17/20 Principal diagnosis: CoVID 19 pneumonitis This is a 74-year-old female patient who resides at [facility] on the [facility]. She has a history of hypothyroidism, seizures, chronic obstructive pulmonary disease, CVA/TIA, hypertension, hyperlipidemia, rheumatoid arthritis, Parkinson's disease with tremors, anxiety/depression, panic disorder. Lifelong nonsmoker. He was brought into the emergency room today after being tested positive for CoVID and having low O2 saturations at the facility. She is seen today in consultation on the regular medical floor. She is currently awake and alert. She does have essential tremors. He is currently on 15 L high flow nasal cannula maintaining O2 saturations in the mid 90s. She's afebrile. Hemodynamically stable. Chest x-ray revealing low lung volumes. Patchy basilar density bilaterally. No sizable effusion. White count 6.5. Hemoglobin 9.1. D-dimer 0.82. Sodium 137. Potassium 4.6. Creatinine 1.28. LDH 1120. C- reactive protein 55.6. Pro-calcitonin 0.25. Influenza screen not detected. She is currently on azithromycin and ceftriaxone. Symbicort, albuterol.. Anticoagulated with Eliquis. Initiated on dexamethasone, vitamin C, vitamin D, zinc, melatonin, Pepcid. The patient is seen today 04/16/2020 in follow-up on the regular medical floor. She is currently resting on 2 L. Awake and alert in no acute distress. He is requiring 15 L high flow nasal cannula to maintain O2 saturations in the mid 90 s. She is afebrile. She remains on antibiotics in the form of ceftriaxone and azithromycin. Continued on bronchodilators. Anticoagulated with Eliquis. He remains on dexamethasone, vitamin C, vitamin D, zinc, melatonin, Pepcid The patient is seen today 04/17/2020 in follow-up on the regular medical floor. She remains awake and alert in no acute distress. He still requires 15 L high flow nasal cannula to maintain O2 saturations in the 90s. D-dimer 0.71. LDH 450. C-reactive protein 2.5. Chest x-ray continues to show mild patchy infiltrates felt the left mid and lower lung. She remains on dexamethasone, vitamin C, vitamin D, zinc, melatonin, Pepcid. Quite relieved with Eliquis. Sh e was outside the window for Remdesivir. Objective - Vital Signs Vital signs: Vital Signs Temp 98.5 F 04/17/20 11:00 Pulse 70 04/17/20 11:00 Resp 17 04/17/20 11:00 BP 159/82 04/17/20 11:00 Pulse Ox 93 L 04/17/20 11:00 Intake & Output 04/16/20 04/17/20 04/17/20 18:59 06:59 18:59 Output Total 100 Balance -100 Output: Urine 100 Other: Voiding Method Indwelling Catheter Indwelling Catheter Indwelling Catheter # Bowel Movements 0 - Exam GENERAL EXAM: Alert, confused, 74-year-old female patient, Parkinson tremors, on 15 L high flow nasal cannula, fairly comfortable in no apparent distress. HEAD: Normocephalic. EYES: Normal reaction of pupils, equal size. NOSE: Clear with pink turbinates. THROAT: No erythema or exudates. NECK: No masses, no JVD. CHEST: No chest wall deformity. LUNGS: Equal air entry with bilateral scattered rhonchi CVS: S1 and S2 normal with no audible murmur, regular rhythm. ABDOMEN: No hepatosplenomegaly, normal bowel sounds, no guarding or rigidity. SPINE: No scoliosis or deformity SKIN: Chronic sacral decubitus ulcer CENTRAL NERVOUS SYSTEM: Essential tremors, left-sided hemiparesis from previous CVA, tone is normal in all 4 extremities. EXTREMITIES: There is no peripheral edema. No clubbing, no cyanosis. Peripheral pulses are intact. - Labs CBC & Chem 7: 04/14/20 16:36 04/14/20 16:36 Labs: Abnormal Lab Results - Last 24 Hours (Table) 04/17/20 04/17/20 Range/Units 07:20 07:20 D-Dimer 0.71 H (<0.60) mg/L FEU Lactate Dehydrogenase 450 H (120-246) U/L C-Reactive Protein 2.5 H (0.0-0.8) mg/dL Microbiology - Last 24 Hours (Table) 04/14/20 16:36 Blood Culture - Preliminary Blood No Growth after 48 hours Assessment and Plan Assessment: 1 Acute on chronic hypoxic respiratory failure secondary to acute CoVID 19 pneumonitis, originally tested at [facility], outside the window for Remdesivir 2 Elevated d-dimer secondary to CoVID 19. On Eliquis. 3 History of bilateral PE and bilateral DVT on Eliquis in the outpatient setting 4 Chronic hypoxic respiratory failure on oxygen at 2-3 L 5 History of CVA with left-sided romi-paresis 6 Parkinson's disease with tremors 7 History of seizures 8 Hypertension 9 Chronic kidney disease stage III 10 Hypertension 11 Hypothyroidism 12 Chronic sacral ulcer stage III nonhealing 13 History of colorectal cancer status post radiation 14 History of anxiety/depression/panic attacks 15 Poor overall functional performance based on the above-mentioned multiple comorbidities, [facility] resident Plan: The patient was seen and evaluated by Dr. Townsend Chest x-ray and labs reviewed We'll continue with the current treatment plan Titrate the FiO2 as tolerated We'll continue to follow and make further recommendations based on her clinical status I, the cosigning physician, performed a history & physical examination of the patient. Lungs sounds with bilateral scattered rhonchi. Maintaining good O2 saturations in the 90s on 15 L high flow nasal cannula. I discussed the assessment and plan of care with my nurse practitioner, Alycia Lancaster. I attest to the above note as dictated by her.
[2020-04-17] MEDS: SENNOSIDES-DOCUSATE SODIUM 1 EACH TAB PO SCH (21:49)
[2020-04-17] MEDS: traZODone HCL 50 MG TAB PO SCH (22:00)
[2020-04-17] MEDS: MELATONIN 5 MG TABLET PO SCH (22:00)
--- NOTE | 2020-04-18 02:54 | P.PN ---
Subjective Progress Note Date: 04/16/20 Principal diagnosis: Acute hypoxic respiratory failure secondary to COVID-19 pneumonia. This is a 74-year-old female patient of mine currently residing at [facility] [place] and is wheelchair bound with past medical history of hypertension, coronary artery disease, history of bilateral PE and bilateral DVT on lifelong anticoagulation with Eliquis, hyperlipidemia, Parkinson's, hypothyroidism, seizure disorder, history of stroke, anemia of chronic disease, chronic back pain, chronic hypoxic respiratory failure on home O2 at 3 L nasal cannula, COPD, rheumatoid arthritis, chronic Arceo catheter, chronic sacral ulcer stage III nonhealing ulceration of the toxic previously seen at the wound care center, recurrent depression, anxiety and panic attacks, history 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 Patient recently tested positive at [facility] with rapid Covid testing reported yesterday to the nurse and patient experienced increasing difficulty with breathing with hypoxia, pulse ox down in the low 80s. Patient was having shortness of breath. No chest pain or palpitations. No fever or chills. No cough. Patient was transferred to [facility] emergency center for evaluation. Patient was afebrile, heart rate 65, blood pressure 105/75, pulse ox 94% EKG was a sinus rhythm with no acute ST changes. Chest x-ray positive for pneumonia Data CBC 6.5, hemoglobin 9.1, platelet count 312. Electrolytes normal. BUN 21 and creatinine 1.28. Blood sugar 113. AST 70. LDH 1120, C-reactive protein 55.6. Lactic acid 1.1. Influenza testing negative. Subsequently, COVID-19 ordered. 04/16/2020 Patient is currently lying in bed comfortably. No complaints of chest pain or shortness of breath. Still requiring oxygen at 15 L high flow via nasal cannula. Patient has been afebrile. Patient is being continued antibiotics in the form of ceftriaxone and azithromycin. Also continued on dexamethasone and Eliquis. Patient is a poor historian due to underlying dementia. Laboratory data reviewed. Current medications reviewed. Objective - Vital Signs Vital signs: Vital Signs Temp 97.5 F L 04/16/20 11:00 Pulse 56 L 04/16/20 11:00 Resp 18 04/16/20 11:00 BP 123/68 04/16/20 11:00 Pulse Ox 98 04/16/20 16:00 Intake & Output 04/15/20 04/16/20 04/16/20 18:59 06:59 18:59 Intake Total 540 237 Output Total 300 650 Balance 240 -413 Weight 83.007 kg Intake: Intake, IV Titration 300 Amount Azithromycin 500 mg In 250 Sodium Chloride 0.9% 250 ml @ 250 mls/hr IVPB Q24H ISAEL Rx#:[id number] cefTRIAXone 1 gm In 50 Sodium Chloride 0.9% 50 ml @ 100 mls/hr IVPB Q24HR ISAEL Rx#:[id number] Oral 240 237 Output: Urine 300 650 Uretheral (Arceo) 475 Other: Voiding Method Indwelling Catheter Indwelling Catheter Indwelling Catheter # Voids 2 # Bowel Movements 1 - Exam Physical examination: HEENT: Head is atraumatic, normocephalic, pupils were equal round reactive to light and accommodation, extraocular muscle movement intact, mucous membranes of the mouth are somewhat dry. Neck: Supple, no JVD, no carotid bruit. Chest: Decreased breath sounds at bases few rhonchi no expiratory wheezes, no chest wall tenderness, no intercostal retractions. Heart: First heart sound is depressed, second heart sounds normal, there is no gallop or murmur. Abdomen: Soft, minimal nonspecific tenderness no rebound or guarding positive bowel sounds Extremities: No pedal edema, dorsalis pedis +1 bilaterally. Neurologic examination: Patient is awake alert and oriented 3, cranial nerves 3-12 are grossly intact, muscle power 4 out of 5 in upper and lower extremities bilaterally. - Labs CBC & Chem 7: 04/14/20 16:36 04/14/20 16:36 Labs: Abnormal Lab Results - Last 24 Hours (Table) 04/15/20 Range/Units 15:08 Coronavirus (PCR) Detected A (Not Detectd) Microbiology - Last 24 Hours (Table) 04/14/20 16:36 Blood Culture - Preliminary Blood No Growth after 24 hours Assessment and Plan Assessment: 1. Acute hypoxic respiratory failure secondary to COVID-19 pneumonia. Patient minutes to the [facility] floor. Patient started on azithromycin 500 mg IV piggyback daily, ceftriaxone 1 g IV piggyback daily, dexamethasone 6 mg oral daily, vitamin C 500 mg daily, vitamin D 5000 units daily, continue Yusuf was 5 m g twice daily, zinc 220 mg daily, albuterol inhaler 4 times daily as needed. Consult with pulmonary medicine. 2. Elevated d-dimer secondary to Covid 19. 3. Chronic kidney disease stage III, stable. 4. Hypertension. Continue atenolol 25 mg daily. 5. 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 6. Hemiparesis left side from previous CVA. 7. Parkinson's disease. 8. Hypothyroidism. 9. Seizure disorder. 10. Anemia of chronic kidney disease. 11. Chronic hypoxic respiratory failure on home O2 at 3 L nasal cannula. 12. Chronic sacral ulcer stage III nonhealing. We will consider consult. 13. Recurrent depression, anxiety and panic attacks. 14. History of colorectal cancer status post radiation cellulitis of sacrum. Patient admitted to the hospital for a minimum of 2 night stay. Discharge plan: Return to [facility] Time with Patient: Greater than 30
--- NOTE | 2020-04-18 02:56 | P.PN ---
Subjective Progress Note Date: 04/17/20 Principal diagnosis: Acute hypoxic respiratory failure secondary to COVID-19 pneumonia. This is a 74-year-old female patient of mine currently residing at [facility] [place] and is wheelchair bound with past medical history of hypertension, coronary artery disease, history of bilateral PE and bilateral DVT on lifelong anticoagulation with Eliquis, hyperlipidemia, Parkinson's, hypothyroidism, seizure disorder, history of stroke, anemia of chronic disease, chronic back pain, chronic hypoxic respiratory failure on home O2 at 3 L nasal cannula, COPD, rheumatoid arthritis, chronic Arceo catheter, chronic sacral ulcer stage III nonhealing ulceration of the toxic previously seen at the wound care center, recurrent depression, anxiety and panic attacks, history 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 Patient recently tested positive at [facility] with rapid Covid testing reported yesterday to the nurse and patient experienced increasing difficulty with breathing with hypoxia, pulse ox down in the low 80s. Patient was having shortness of breath. No chest pain or palpitations. No fever or chills. No cough. Patient was transferred to [facility] emergency center for evaluation. Patient was afebrile, heart rate 65, blood pressure 105/75, pulse ox 94% EKG was a sinus rhythm with no acute ST changes. Chest x-ray positive for pneumonia Data CBC 6.5, hemoglobin 9.1, platelet count 312. Electrolytes normal. BUN 21 and creatinine 1.28. Blood sugar 113. AST 70. LDH 1120, C-reactive protein 55.6. Lactic acid 1.1. Influenza testing negative. Subsequently, COVID-19 ordered. 04/16/2020 Patient is currently lying in bed comfortably. No complaints of chest pain or shortness of breath. Still requiring oxygen at 15 L high flow via nasal cannula. Patient has been afebrile. Patient is being continued antibiotics in the form of ceftriaxone and azithromycin. Also continued on dexamethasone and Eliquis. Patient is a poor historian due to underlying dementia. Laboratory data reviewed. 04/17/2020 Patient is currently lying in bed comfortably. No acute distress. Still requiring 15 L high flow oxygen via nasal cannula. Chest x-ray showed mild patchy infiltrate in the left mid and lower lung. Patient is being continued on dexamethasone, Eliquis and vitamin supplementation. Patient has been afebrile otherwise. Follow-up CBC and BMP tomorrow. Current medications reviewed. Objective - Vital Signs Vital signs: Vital Signs Temp 98.7 F 04/17/20 16:41 Pulse 79 04/17/20 16:41 Resp 17 04/17/20 16:41 BP 132/68 04/17/20 16:41 Pulse Ox 91 L 04/17/20 16:41 Intake & Output 04/16/20 04/17/20 04/17/20 18:59 06:59 18:59 Output Total 100 Balance -100 Output: Urine 100 Other: Voiding Method Indwelling Catheter Indwelling Catheter Indwelling Catheter # Bowel Movements 0 - Exam Physical examination: HEENT: Head is atraumatic, normocephalic, pupils were equal round reactive to light and accommodation, extraocular muscle movement intact, mucous membranes of the mouth are somewhat dry. Neck: Supple, no JVD, no carotid bruit. Chest: Decreased breath sounds at bases few rhonchi no expiratory wheezes, no chest wall tenderness, no intercostal retractions. Heart: First heart sound is depressed, second heart sounds normal, there is no g allop or murmur. Abdomen: Soft, minimal nonspecific tenderness no rebound or guarding positive bowel sounds Extremities: No pedal edema, dorsalis pedis +1 bilaterally. Neurologic examination: Patient is awake alert and oriented 3, cranial nerves 3-12 are grossly intact, muscle power 4 out of 5 in upper and lower extremities bilaterally. - Labs CBC & Chem 7: 04/14/20 16:36 12 16:36 Labs: Abnormal Lab Results - Last 24 Hours (Table) 04/17/20 04/17/20 Range/Units 07:20 07:20 D-Dimer 0.71 H (<0.60) mg/L FEU Lactate Dehydrogenase 450 H (120-246) U/L C-Reactive Protein 2.5 H (0.0-0.8) mg/dL Microbiology - Last 24 Hours (Table) 04/14/20 16:36 Blood Culture - Preliminary Blood No Growth after 48 hours Assessment and Plan Assessment: 1. Acute hypoxic respiratory failure secondary to COVID-19 pneumonia. Patient minutes to the [facility] floor. Patient started on azithromycin 500 mg IV piggyback daily, ceftriaxone 1 g IV piggyback daily, dexamethasone 6 mg oral daily, vitamin C 500 mg daily, vitamin D 5000 units daily, continue Yusuf was 5 mg twice daily, zinc 220 mg daily, albuterol inhaler 4 times daily as needed. Consult with pulmonary medicine. 2. Elevated d-dimer secondary to Covid 19. 3. Chronic kidney disease stage III, stable. 4. Hypertension. Continue atenolol 25 mg daily. 5. 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 6. Hemiparesis left side from previous CVA. 7. Parkinson's disease. 8. Hypothyroidism. 9. Seizure disorder. 10. Anemia of chronic kidney disease. 11. Chronic hypoxic respiratory failure on home O2 at 3 L nasal cannula. 12. Chronic sacral ulcer stage III nonhealing. We will consider consult. 13. Recurrent depression, anxiety and panic attacks. 14. History of colorectal cancer status post radiation cellulitis of sacrum. Patient admitted to the hospital for a minimum of 2 night stay. Discharge plan: Return to [facility] Time with Patient: Greater than 30
[2020-04-18] MEDS: FUROSEMIDE 20 MG TAB PO SCH (05:21)
[2020-04-18] MEDS: LEVOTHYROXINE 25 MCG TAB PO SCH (05:21)
[2020-04-18] MEDS: PANTOPRAZOLE 40 MG TABLET PO SCH (05:21)
[2020-04-18] MEDS: ACETAMINOPHEN TAB 500 MG TAB PO SCH (05:21)
[2020-04-18 07:23] LABS: Anisocytosis Slight; HCT 36.8 % (34.0-46.0); HGB 10.7 gm/dL (11.4-16.0); Hypochromasia Marked; MCH 26.2 pg (25.0-35.0); MCHC 29.2 g/dL (31.0-37.0); MCV 89.6 fL (80.0-100.0); Mean Platelet Volume 8.9; Platelet Count 398 k/uL (150-450); RBC 4.11 m/uL (3.80-5.40); RDW 17.5 % (11.5-15.5)
[2020-04-18 07:42] LABS: Band Neutrophils % 3 %; Metamyelocytes % 1 %; Neutrophils % (M) 90 %; Nucleated Red Blood Cells 6 /100 WBC (0-0); Total Cells Counted 200
[2020-04-18 07:43] LABS: Lymphocytes # (M) 0.48 k/uL (1.0-4.8); Metamyelocytes # (M) 0.12 k/uL (0); Monocytes # (M) 0.36 k/uL (0-1.0); Polychromasia Present; WBC 12.1 k/uL (3.8-10.6)
[2020-04-18] MEDS: ALBUTEROL HFA INHALER INHALATION SCH ×4 (08:26→19:40)
[2020-04-18] MEDS: SYMBICORT 80-4.5 MCG INHALER INHALATION SCH ×2 (08:26→19:41)
[2020-04-18] MEDS: ASCORBIC ACID 500 MG TAB PO SCH (08:57)
[2020-04-18] MEDS: APIXABAN 5 MG TAB PO SCH ×2 (08:57→20:13)
[2020-04-18] MEDS: CHOLECALCIFEROL 1,000 UNIT TAB PO SCH (08:58)
[2020-04-18] MEDS: dexAMETHasone 2 MG TAB PO SCH (08:58)
[2020-04-18] MEDS: busPIRone HCl 10 MG TAB PO SCH ×2 (08:58→20:14)
[2020-04-18] MEDS: GABAPENTIN 300 MG CAP PO SCH ×4 (08:58→20:13)
[2020-04-18] MEDS: BACLOFEN 10 MG TAB PO SCH ×3 (08:58→20:13)
[2020-04-18] MEDS: POTASSIUM CHLORIDE ER 20 MEQ TAB.ER PO SCH (08:58)
[2020-04-18] MEDS: LORATADINE 10 MG TAB PO SCH (08:58)
[2020-04-18] MEDS: levETIRAcetam 500 MG TAB PO SCH ×2 (08:58→20:12)
[2020-04-18] MEDS: CARBIDOPA-LEVODOPA 25-100 MG 1 EACH TAB PO SCH ×3 (08:58→20:12)
[2020-04-18] MEDS: DICYCLOMINE 10 MG CAP PO SCH ×2 (08:58→20:14)
[2020-04-18] MEDS: atenoloL 25 MG TAB PO SCH (08:58)
[2020-04-18] MEDS: oxyCODONE-APAP 10-325MG 1 EACH TAB PO SCH ×4 (08:58→20:12)
[2020-04-18] MEDS: Tofacitinib Citrate [Xeljanz Xr] 11 MG Tab.Er.24h PO SCH (08:59)
[2020-04-18] MEDS: ZINC SULFATE 220 MG CAP PO SCH (08:59)
[2020-04-18 09:21] LABS: BUN/Creat Ratio 23.33 Ratio (12.00-20.00); Calcium 9.2 mg/dL (8.7-10.3); Non-African American GFR(CKD) 63.9 (60.0-200.0); Potassium 4.3 mmol/L (3.5-5.5)
[2020-04-18] MEDS: HYDROPHILIC CREAM 180 GM TUBE TOPICAL SCH (11:32)
--- NOTE | 2020-04-18 12:55 | P.PN ---
Subjective Progress Note Date: 04/18/20 75-year-old male patient is a correction resident with multiple medical problems including COPD, previous history of CVA, hypertension, hyperlipidemia, a Parkinson's disease in addition to chronic anxiety and depression and panic disorder. The patient is currently in the hospital for acute hypoxic resp iratory failure secondary to COVID 19 Pneumonia. The patient was initiated on dexamethasone, vitamin C, vitamin D, zinc and linezolid and sepsis. The patient is currently on on the percent nonrebreather and Addition to 15 L nasal cannula. He was out of the window Remdesivir. The patient has resting tremors. The patient is a bit restless in bed. She is still feeling short of breath. She is also bronchospastic and wheezy. Her IV fluids are running at 0.9 at 10 mL an hour. Her sodium level is up to 147. BUN is 21 with a creatinine of 0.9. LDH is down to 450. The chest x-ray showing peripheral infiltrates more so on the left. This is a rotated film. She is on Rocephin. She is on Decadron. She is on Zithromax. She is on vitamin supplements for coronavirus Covid 19 infection. Objective - Vital Signs Vital signs: Vital Signs Temp 101.1 F H 04/18/20 11:00 Pulse 88 04/18/20 11:00 Resp 18 04/18/20 11:00 BP 139/65 04/18/20 11:00 Pulse Ox 95 04/18/20 12:04 Intake & Output 04/17/20 04/18/20 04/18/20 18:59 06:59 18:59 Output Total 700 300 Balance -700 -300 Output: Urine 700 300 Other: Voiding Method Indwelling Catheter Indwelling Catheter Indwelling Catheter # Bowel Movements 2 1 - Exam GENERAL EXAM: Alert, confused, 74-year-old female patient, Parkinson tremors, on 15 L high flow nasal cannulain addition to 100% nonrebreather facemask., fairly comfortable in no apparent distress.the patient has resting tremors related to Parkinson's disease. She has significant poker facies. HEAD: Normocephalic. EYES: Normal reaction of pupils, equal size. NOSE: Clear with pink turbinates. THROAT: No erythema or exudates. NECK: No masses, no JVD. CHEST: No chest wall deformity. LUNGS: Equal air entry with bilateral scattered rhonchi CVS: S1 and S2 normal with no audible murmur, regular rhythm. ABDOMEN: No hepatosplenomegaly, normal bowel sounds, no guarding or rigidity. SPINE: No scoliosis or deformity SKIN: Chronic sacral decubitus ulcer CENTRAL NERVOUS SYSTEM: Essential tremors, left-sided hemiparesis from previous CVA, tone is normal in all 4 extremities. EXTREMITIES: There is no peripheral edema. No clubbing, no cyanosis. Peripheral pulses are intact. - Labs CBC & Chem 7: 04/18/20 06:04 04/18/20 06:04 Labs: Abnormal Lab Results - Last 24 Hours (Table) 04/18/20 04/18/20 Range/Units 06:04 06:04 WBC 12.1 H (3.8-10.6) k/uL Hgb 10.7 L (11.4-16.0) gm/dL MCHC 29.2 L (31.0-37.0) g/dL RDW 17.5 H (11.5-15.5) % Neutrophils # (Manual) 11.20 H (1.3-7.7) k/uL Lymphocytes # (Manual) 0.48 L (1.0-4.8) k/uL Metamyelocytes # (Man) 0.12 H (0) k/uL Nucleated RBCs 6 H (0-0) /100 WBC Sodium 147 H (135-145) mmol/L BUN/Creatinine Ratio 23.33 H (12.00-20.00) Ratio Glucose 223 H (70-110) mg/dL Microbiology - Last 24 Hours (Table) 04/14/20 16:36 Blood Culture - Preliminary Blood No Growth after 72 hours Assessment and Plan Plan: 1 Acute on chronic hypoxic respiratory failure secondary to acute CoVID 19 pneumonitis, originally tested at [facility], outside the window for Remdesivirthe patient is currently on 100% nonrebreather facemask in addition to oxygen at 15 L. There has been worsening in her oxygenation. A repeat chest x-ray still follow. The patient remains on Decadron. The patient is also on anticoagulation with aggressive the patient was taken Eliquis 4 previous history of DVT and pulmonary embolism. 2 Elevated d-dimer secondary to CoVID 19. On Eliquis. 3 History of bilateral PE and bilateral DVT on Eliquis in the outpatient setting 4 Chronic hypoxic respiratory failure on oxygen at 2-3 L 5 History of CVA with left-sided romi-paresis 6 Parkinson's disease with tremors 7 History of seizures 8 Hypertension 9 Chronic kidney disease stage III 10 Hypertension 11 Hypothyroidism 12 Chronic sacral ulcer stage III nonhealing 13 History of colorectal cancer status post radiation 14 History of anxiety/depression/panic attacks 15 Poor overall functional performance based on the above-mentioned multiple co morbidities, correction resident Plan: Chest x-ray needs to be repeated, we will obtain one in the morning Increase IV fluids as the patient has developed some hyper x-ray. Switch IV fluids to half-normal saline today to 75 mL an hour. Continue Decadron Establish CODE STATUS We'll continue with the current treatment plan Titrate the FiO2 as tolerated We'll continue to follow and make further recommendations based on her clinical status
[2020-04-18] MEDS: ACETAMINOPHEN TAB 325 MG TAB PO PRN (12:59)
[2020-04-18] MEDS: FOLIC ACID 1 MG TAB PO SCH (14:45)
[2020-04-18] MEDS: ALPRAZolam 0.25 MG TAB PO SCH ×3 (14:45→20:12)
--- NOTE | 2020-04-18 15:38 | P.PN ---
Subjective Progress Note Date: 04/18/20 Acute hypoxic respiratory failure secondary to COVID-19 pneumonia. This is a 74-year-old female patient of mine currently residing at [facility] [place] and is wheelchair bound with past medical history of hypertension, coronary artery disease, history of bilateral PE and bilateral DVT on lifelong anticoagulation with Eliquis, hyperlipidemia, Parkinson's, hypothyroidism, seizure disorder, history of stroke, anemia of chronic disease, chronic back pain, chronic hypoxic respiratory failure on home O2 at 3 L nasal cannula, COPD, rheumatoid arthritis, chronic Arceo catheter, chronic sacral ulcer stage III nonhealing ulceration of the toxic previously seen at the wound care center, recurrent depression, anxiety and panic attacks, history 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 Patient recently tested positive at [facility] with rapid Covid testing reported yesterday to the nurse and patient experienced increasing difficulty with breathing with hypoxia, pulse ox down in the low 80s. Patient was having shortness of breath. No chest pain or palpitations. No fever or chills. No cough. Patient was transferred to [facility] emergency center for evaluation. Patient was afebrile, heart rate 65, blood pressure 105/75, pulse ox 94% EKG was a sinus rhythm with no acute ST changes. Chest x-ray positive for pneumonia Data CBC 6.5, hemoglobin 9.1, platelet count 312. Electrolytes normal. BUN 21 and creatinine 1.28. Blood sugar 113. AST 70. LDH 1120, C-reactive protein 55.6. Lactic acid 1.1. Influenza testing negative. Subsequently, COVID-19 ordered. 04/16/2020 Patient is currently lying in bed comfortably. No complaints of chest pain or shortness of breath. Still requiring oxygen at 15 L high flow via nasal cannula. Patient has been afebrile. Patient is being continued antibiotics in the form of ceftriaxone and azithro mycin. Also continued on dexamethasone and Eliquis. Patient is a poor historian due to underlying dementia. Laboratory data reviewed. 04/17/2020 Patient is currently lying in bed comfortably. No acute distress. Still requiring 15 L high flow oxygen via nasal cannula. Chest x-ray showed mild patc hy infiltrate in the left mid and lower lung. Patient is being continued on dexamethasone, Eliquis and vitamin supplementation. Patient has been afebrile otherwise. Follow-up CBC and BMP tomorrow. Current medications reviewed. 04/18/2020 Patient is seen and evaluated and follow-up continues to be confused and pulling out IV catheter. Multiple attempts have been made by nursing staff and an order for a midline was placed. Patient continues to require 15 L high flow via nasal cannula along with a nonrebreather and needs constant redirection as she continues to try to take off the oxygen. Patient is maintained on dexamethasone and vitamin supplementation and will continue at this time. Patient also continues on IV antibiotics in the form of ceftriaxone and azithromycin. Review of systems: Unable to obtain as patient is confused Objective - Vital Signs Vital signs: Vital Signs Temp 101.1 F H 04/18/20 11:00 Pulse 88 04/18/20 11:00 Resp 18 04/18/20 11:00 BP 139/65 04/18/20 11:00 Pulse Ox 95 04/18/20 12:04 Intake & Output 04/17/20 04/18/20 04/18/20 18:59 06:59 18:59 Output Total 700 300 Balance -700 -300 Output: Urine 700 300 Other: Voiding Method Indwelling Catheter Indwelling Catheter Indwelling Catheter # Bowel Movements 2 1 - Exam Gen: This is a 74-year-old female lying in bed, awake, alert and oriented 1-2, well-developed, well-nourished. HEENT: Head is atraumatic, normocephalic. Pupils equal, round. Sclerae is anicteric. NECK: Supple. No JVD. No lymphadenopathy. No thyromegaly. LUNGS: Diminished breath sounds bilaterally with some scattered rhonchi and crackles noted. No intercostal retractions. HEART: S1, S2 are muffled ABDOMEN: Soft. Bowel sounds are present. No masses. No tenderness. EXTREMITIES: No pedal edema. No calf tenderness. NEUROLOGICAL: Patient is awake, alert and oriented x1-2. Cranial nerves 2 through 12 are grossly intact. - Labs CBC & Chem 7: 04/18/20 06:04 04/18/20 06:04 Labs: Abnormal Lab Results - Last 24 Hours (Table) 04/18/20 04/18/20 Range/Units 06:04 06:04 WBC 12.1 H (3.8-10.6) k/uL Hgb 10.7 L (11.4-16.0) gm/dL MCHC 29.2 L (31.0-37.0) g/dL RDW 17.5 H (11.5-15.5) % Neutrophils # (Manual) 11.20 H (1.3-7.7) k/uL Lymphocytes # (Manual) 0.48 L (1.0-4.8) k/uL Metamyelocytes # (Man) 0.12 H (0) k/uL Nucleated RBCs 6 H (0-0) /100 WBC Sodium 147 H (135-145) mmol/L BUN/Creatinine Ratio 23.33 H (12.00-20.00) Ratio Glucose 223 H (70-110) mg/dL Microbiology - Last 24 Hours (Table) 04/14/20 16:36 Blood Culture - Preliminary Blood No Growth after 72 hours Assessment and Plan Assessment: -Acute hypoxic respiratory failure secondary to COVID-19 pneumonia. Patient started on azithromycin 500 mg IV piggyback daily, ceftriaxone 1 g IV piggyback daily, dexamethasone 6 mg oral daily, vitamin C 500 mg daily, vitamin D 5000 units daily, zinc 220 mg daily, albuterol inhaler 4 times daily as needed. Consult with pulmonary medicine. -Elevated d-dimer secondary to Covid 19. -Chronic kidney disease stage III, stable. -Hypertension. Continue atenolol 25 mg daily. -History of bilateral PE and bilateral DVT on lifelong anticoagulation with Eliquis. -Hemiparesis left side from previous CVA. -Parkinson's disease. -Hypothyroidism. -Seizure disorder. -Anemia of chronic kidney disease. -Chronic hypoxic respiratory failure on home O2 at 3 L nasal cannula. -Chronic sacral ulcer stage III nonhealing. We will consider consult. -Recurrent depression, anxiety and panic attacks. -History of colorectal cancer status post radiation cellulitis of sacrum. Plan: Continue current medications. An order for a midline was placed as patient continues to be confused and pulling out IV catheters. Full attempts by nursing staff made an patient is a difficult stick. Patient to continue with IV antibiotics along with breathing inhalational treatments. She also continues on both a nonrebreather and nasal cannula and continues to empty take the nonrebreather off and nasal cannula out. Patient needing constant redirection. Patient is currently not eating very well and has been refusing some medications. Patient continues to be confused. Social work following as patient is returning to [facility] once stabilized and discharged. Will continue to monitor closely.
[2020-04-18] MEDS: AZITHROMYCIN 500 MG in SODIUM CHLORIDE 0.9% 250 ML IVPB SCH (16:10)
[2020-04-18] MEDS: SODIUM CHLORIDE 0.45% 1,000 ML IV SCH (17:54)
[2020-04-18] MEDS: MELATONIN 5 MG TABLET PO SCH (20:14)
[2020-04-18] MEDS: traZODone HCL 50 MG TAB PO SCH (20:14)
[2020-04-18] MEDS: SENNOSIDES-DOCUSATE SODIUM 1 EACH TAB PO SCH (20:15)
[2020-04-19] MEDS: SODIUM CHLORIDE 0.45% 1,000 ML IV SCH ×2 (04:46→17:45)
[2020-04-19] MEDS: ACETAMINOPHEN TAB 500 MG TAB PO SCH (05:19)
[2020-04-19] MEDS: PANTOPRAZOLE 40 MG TABLET PO SCH (05:19)
[2020-04-19] MEDS: FUROSEMIDE 20 MG TAB PO SCH (05:19)
[2020-04-19] MEDS: LEVOTHYROXINE 25 MCG TAB PO SCH (05:19)
[2020-04-19 05:52] LABS: Anisocytosis Slight; HCT 32.8 % (34.0-46.0); HGB 9.8 gm/dL (11.4-16.0); Hypochromasia Marked; MCH 26.7 pg (25.0-35.0); MCHC 29.9 g/dL (31.0-37.0); MCV 89.3 fL (80.0-100.0); Mean Platelet Volume 8.4; Platelet Count 394 k/uL (150-450); RBC 3.67 m/uL (3.80-5.40); RDW 17.9 % (11.5-15.5)
[2020-04-19 06:45] LABS: Band Neutrophils % 1 %; Large Platelets Present; Myelocytes % 4 %; Neutrophils % (M) 85 %; Nucleated Red Blood Cells 4 /100 WBC (0-0); Total Cells Counted 200
[2020-04-19 06:46] LABS: Polychromasia Present
[2020-04-19] MEDS: CHOLECALCIFEROL 1,000 UNIT TAB PO SCH (08:07)
[2020-04-19] MEDS: CARBIDOPA-LEVODOPA 25-100 MG 1 EACH TAB PO SCH ×3 (08:08→20:35)
[2020-04-19] MEDS: ASCORBIC ACID 500 MG TAB PO SCH (08:08)
[2020-04-19] MEDS: BACLOFEN 10 MG TAB PO SCH ×3 (08:08→20:35)
[2020-04-19] MEDS: ZINC SULFATE 220 MG CAP PO SCH (08:08)
[2020-04-19] MEDS: atenoloL 25 MG TAB PO SCH (08:08)
[2020-04-19] MEDS: levETIRAcetam 500 MG TAB PO SCH ×2 (08:08→20:35)
[2020-04-19] MEDS: DICYCLOMINE 10 MG CAP PO SCH ×2 (08:08→20:35)
[2020-04-19] MEDS: GABAPENTIN 300 MG CAP PO SCH ×3 (08:08→20:35)
[2020-04-19] MEDS: POTASSIUM CHLORIDE ER 20 MEQ TAB.ER PO SCH (08:08)
[2020-04-19] MEDS: APIXABAN 5 MG TAB PO SCH ×2 (08:08→20:35)
[2020-04-19] MEDS: busPIRone HCl 10 MG TAB PO SCH ×2 (08:08→20:35)
[2020-04-19] MEDS: LORATADINE 10 MG TAB PO SCH (08:08)
[2020-04-19] MEDS: DEXAMETHASONE SOD PHOSPHATE 10 MG/ML 1 ML VIAL IV SCH (08:09)
[2020-04-19] MEDS: oxyCODONE-APAP 10-325MG 1 EACH TAB PO SCH ×4 (08:09→20:35)
--- NOTE | 2020-04-19 08:55 | XR ---
EXAMINATION TYPE: XR chest 1V portable DATE OF EXAM: 04/19/2020 COMPARISON: Prior chest x-ray 04/17/2020 HISTORY: Shortness of breath, Covid pneumonia TECHNIQUE: Single frontal view of the chest is obtained. FINDINGS: Patient is rotated. Patchy density present in the right upper and right lower lobe, possib ly left upper lobe. Heart size is stable. Aorta is dense. No evident pneumothorax or pleural effusion . IMPRESSION: Correlate for pneumonia.
[2020-04-19] MEDS: SYMBICORT 80-4.5 MCG INHALER INHALATION SCH ×2 (08:58→19:41)
[2020-04-19] MEDS: ALBUTEROL HFA INHALER INHALATION SCH ×4 (08:58→19:40)
[2020-04-19 09:28] LABS: Anion Gap 14.3 mmol/L (4.00-12.00); BUN/Creat Ratio 16.67 Ratio (12.00-20.00); Calcium 8.8 mg/dL (8.7-10.3); Carbon Dioxide 25.7 mmol/L (21.6-31.8); Non-African American GFR(CKD) 63.9 (60.0-200.0); Potassium 3.8 mmol/L (3.5-5.5)
[2020-04-19] MEDS: Tofacitinib Citrate [Xeljanz Xr] 11 MG Tab.Er.24h PO SCH (09:48)
--- NOTE | 2020-04-19 12:53 | P.PN ---
Subjective Progress Note Date: 04/19/20 75-year-old male patient is a senior care resident with multiple medical problems including COPD, previous history of CVA, hypertension, hyperlipidemia, a Parkinson's disease in addition to chronic anxiety and depression and panic disorder. The patient is currently in the hospital for acute hypoxic resp iratory failure secondary to COVID 19 Pneumonia. The patient was initiated on dexamethasone, vitamin C, vitamin D, zinc and linezolid and sepsis. The patient is currently on on the percent nonrebreather and Addition to 15 L nasal cannula. He was out of the window Remdesivir. The patient has resting tremors. The patient is a bit restless in bed. She is still feeling short of breath. She is also bronchospastic and wheezy. Her IV fluids are running at 0.9 at 10 mL an hour. Her sodium level is up to 147. BUN is 21 with a creatinine of 0.9. LDH is down to 450. The chest x-ray showing peripheral infiltrates more so on the left. This is a rotated film. She is on Rocephin. She is on Decadron. She is on Zithromax. She is on vitamin supplements for coronavirus Covid 19 infection. On 04/19/2020, I'm seeing this patient in follow-up regarding her COVID 19 related pneumonia. The patient is on 100% nonrebreather facemask in addition to a 15 L high flow oxygen. The patient remains on Decadron. She is on anticoagulation with Eliquis. She has a previous history of DVT and pulmonary embolism. She has a sitter at the bedside. She was episodically confused. On today's evaluation she seems much more appropriate and she is able to answer questions appropriately. The white cell count is at 15 with a hemoglobin of 9.8. Platelet count is at 394. The patient is also having a normal renal function. Repeat chest x-ray was done today showed patchy density in the right upper lobe and right lower lobe and the left upper lobe. No evidence of any pneumothorax. She did have a pressure temperature of 101.1. Objective - Vital Signs Vital signs: Vital Signs Temp 98.9 F 04/19/20 11:00 Pulse 50 L 04/19/20 11:00 Resp 18 04/19/20 11:00 BP 154/82 04/19/20 05:00 Pulse Ox 93 L 04/19/20 11:00 Intake & Output 04/18/20 04/19/20 04/19/20 18:59 06:59 18:59 Intake Total 200 120 Output Total 900 600 Balance -900 -400 120 Intake: Oral 200 120 Output: Urine 900 600 Other: Voiding Method Indwelling Catheter Indwelling Catheter # Bowel Movements 1 - Exam GENERAL EXAM: Alert, confused, 74-year-old female patient, Parkinson tremors, on 15 L high flow nasal cannula in addition to 100% nonrebreather facemask., fairly comfortable in no apparent distress.the patient has resting tremors related to Parkinson's disease. She has significant poker facies. HEAD: Normocephalic. EYES: Normal reaction of pupils, equal size. NOSE: Clear with pink turbinates. THROAT: No erythema or exudates. NECK: No masses, no JVD. CHEST: No chest wall deformity. LUNGS: Equal air entry with bilateral scattered rhonchi CVS: S1 and S2 normal with no audible murmur, regular rhythm. ABDOMEN: No hepatosplenomegaly, normal bowel sounds, no guarding or rigidity. SPINE: No scoliosis or deformity SKIN: Chronic sacral decubitus ulcer CENTRAL NERVOUS SYSTEM: Essential tremors, left-sided hemiparesis from previous CVA, tone is normal in all 4 extremities. EXTREMITIES: There is no peripheral edema. No clubbing, no cyanosis. Peripheral pulses are intact. - Labs CBC & Chem 7: 04/19/20 05:29 04/19/20 05:29 Labs: Abnormal Lab Results - Last 24 Hours (Table) 04/19/20 04/19/20 Range/Units 05:29 05:29 WBC 15.0 H (3.8-10.6) k/uL RBC 3.67 L (3.80-5.40) m/uL Hgb 9.8 L (11.4-16.0) gm/dL Hct 32.8 L (34.0-46.0) % MCHC 29.9 L (31.0-37.0) g/dL RDW 17.9 H (11.5-15.5) % Neutrophils # (Manual) 12.90 H (1.3-7.7) k/uL Myelocytes # (Manual) 0.60 H (0) k/uL Nucleated RBCs 4 H (0-0) /100 WBC Anion Gap 14.30 H (4.00-12.00) mmol/L Glucose 182 H (70-110) mg/dL Microbiology - Last 24 Hours (Table) 04/14/20 16:36 Blood Culture - Preliminary Blood No Growth after 96 hours Assessment and Plan Plan: 1 Acute on chronic hypoxic respiratory failure secondary to acute CoVID 19 pneumonitis, originally tested at [facility], outside the window for Remdesivir the patient is currently on 100% nonrebreather facemask in addition to oxygen at 15 L. There has been worsening in her oxygenation. A repeat chest x-ray still follow. The patient remains on Decadron. The patient is also on anticoagulation with Eliquis for previous history of DVT and pulmonary embolism. the chest x-ray from today is showing some infiltration of the right lung. The patient's pulse ox is quite stable. She is a mouth breather. She prefers to stay on a partial nonrebreather. We'll continue that and will continue the steroid treatment for now in addition to Eliquis.note that the patient had some improving trend and her inflammatory markers from few days ago. 2 Elevated d-dimer secondary to CoVID 19. On Eliquis. 3 History of bilateral PE and bilateral DVT on Eliquis in the outpatient setting 4 Chronic hypoxic respiratory failure on oxygen at 2-3 L 5 History of CVA with left-sided romi-paresis 6 Parkinson's disease with tremors 7 History of seizures 8 Hypertension 9 Chronic kidney disease stage III 10 Hypertension 11 Hypothyroidism 12 Chronic sacral ulcer stage III nonhealing 13 History of colorectal cancer status post radiation 14 History of anxiety/depression/panic attacks 15 Poor overall functional performance based on the above-mentioned multiple comorbidities, senior care resident Plan: Chest x-ray this morning was noted. IV fluids to half-normal saline today to 75 mL an hour. Continue Decadron Establish CODE STATUS We'll continue with the current treatment plan Titrate the FiO2 as tolerated We'll continue to follow and make further recommendations based on her clinical status
[2020-04-19] MEDS: ALPRAZolam 0.25 MG TAB PO SCH ×2 (13:02→20:34)
[2020-04-19] MEDS: FOLIC ACID 1 MG TAB PO SCH (13:02)
--- NOTE | 2020-04-19 13:22 | P.PN ---
Subjective Progress Note Date: 04/19/20 Acute hypoxic respiratory failure secondary to COVID-19 pneumonia. This is a 74-year-old female patient of mine currently residing at [facility] on the [place] and is wheelchair bound with past medical history of hypertension, coronary artery disease, history of bilateral PE and bilateral DVT on lifelong anticoagulation with Eliquis, hyperlipidemia, Parkinson's, hypothyroidism, seizure disorder, history of stroke, anemia of chronic disease, chronic back pain, chronic hypoxic respiratory failure on home O2 at 3 L nasal cannula, COPD, rheumatoid arthritis, chronic Arceo catheter, chronic sacral ulcer stage III nonhealing ulceration of the toxic previously seen at the wound care center, recurrent depression, anxiety and panic attacks, history 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 Patient recently tested positive at [facility] with rapid Covid testing reported yesterday to the nurse and patient experienced increasing difficulty with breathing with hypoxia, pulse ox down in the low 80s. Patient was having shortness of breath. No chest pain or palpitations. No fever or chills. No cough. Patient was transferred to [facility] emergency center for evaluation. Patient was afebrile, heart rate 65, blood pressure 105/75, pulse ox 94% EKG was a sinus rhythm with no acute ST changes. Chest x-ray positive for pneumonia Data CBC 6.5, hemoglobin 9.1, platelet count 312. Electrolytes normal. BUN 21 and creatinine 1.28. Blood sugar 113. AST 70. LDH 1120, C-reactive protein 55.6. Lactic acid 1.1. Influenza testing negative. Subsequently, COVID-19 ordered. 04/16/2020 Patient is currently lying in bed comfortably. No complaints of chest pain or shortness of breath. Still requiring oxygen at 15 L high flow via nasal cannula. Patient has been afebrile. Patient is being continued antibiotics in the form of ceftriaxone and azithro mycin. Also continued on dexamethasone and Eliquis. Patient is a poor historian due to underlying dementia. Laboratory data reviewed. 04/17/2020 Patient is currently lying in bed comfortably. No acute distress. Still requiring 15 L high flow oxygen via nasal cannula. Chest x-ray showed mild patc hy infiltrate in the left mid and lower lung. Patient is being continued on dexamethasone, Eliquis and vitamin supplementation. Patient has been afebrile otherwise. Follow-up CBC and BMP tomorrow. Current medications reviewed. 04/18/2020 Patient is seen and evaluated and follow-up continues to be confused and pulling out IV catheter. Multiple attempts have been made by nursing staff and an order for a midline was placed. Patient continues to require 15 L high flow via nasal cannula along with a nonrebreather and needs constant redirection as she continues to try to take off the oxygen. Patient is maintained on dexamethasone and vitamin supplementation and will continue at this time. Patient also continues on IV antibiotics in the form of ceftriaxone and azithromycin. Review of systems: Unable to obtain as patient is confused 04/19/2020 Patient is seen and evaluated in follow-up and appears to be more alert and oriented today. Patient does have a sitter at the bedside she was continuing to remove her nasal cannula nonrebreather. Patient currently remains on 15 L high flow along with nonrebreather and discussed with nursing staff about weaning FiO2 as tolerated she was 97%. Repeat chest x-ray done today shows patchy density in the right upper and right lower lobe possible left upper lobe with no evidence of pneumothorax or pleural effusion noted. Patient was also noted to have low-grade fevers which responded with Tylenol. Patient is eating today and taking medications and will continue with current medication regimen. Pulmonary is following. Review of systems: Constitutional: No reports of fatigue, reports chills and fever Cardiovascular: No reports of chest pain or palpitations Respiratory: Reports shortness of breath GI: No reports of nausea, vomiting, or diarrhea : No reports of dysuria or retention Neurovascular: Reports weakness, reports tremors and shaking of bilateral upper extremities All medications have been reviewed Objective - Vital Signs Vital signs: Vital Signs Temp 101.1 F H 04/19/20 05:00 Pulse 119 H 04/19/20 05:00 Resp 20 04/19/20 05:00 BP 154/82 04/19/20 05:00 Pulse Ox 97 04/19/20 05:00 Intake & Output 04/18/20 04/19/20 04/19/20 18:59 06:59 18:59 Intake Total 200 120 Output Total 900 600 Balance -900 -400 120 Intake: Oral 200 120 Output: Urine 900 600 Other: Voiding Method Indwelling Catheter Indwelling Catheter # Bowel Movements 1 - Exam Gen: This is a 74-year-old female lying in bed, awake, alert and oriented 2-3, well-developed, well-nourished. Tremors noted. sitter at the bedside HEENT: Head is atraumatic, normocephalic. Pupils equal, round. Sclerae is anicteric. NECK: Supple. No JVD. No lymphadenopathy. No thyromegaly. LUNGS: Diminished breath sounds bilaterally with some scattered rhonchi and crackles noted. No intercostal retractions. HEART: S1, S2 are muffled ABDOMEN: Soft. Bowel sounds are present. No masses. No tenderness. EXTREMITIES: No pedal edema. No calf tenderness. tremors noted of bilateral upper extremities NEUROLOGICAL: Patient is awake, alert and oriented x2-3. Cranial nerves 2 through 12 are grossly intact. diffusely weak - Labs CBC & Chem 7: 04/19/20 05:29 04/19/20 05:29 Labs: Abnormal Lab Results - Last 24 Hours (Table) 04/19/20 04/19/20 Range/Units 05:29 05:29 WBC 15.0 H (3.8-10.6) k/uL RBC 3.67 L (3.80-5.40) m/uL Hgb 9.8 L (11.4-16.0) gm/dL Hct 32.8 L (34.0-46.0) % MCHC 29.9 L (31.0-37.0) g/dL RDW 17.9 H (11.5-15.5) % Neutrophils # (Manual) 12.90 H (1.3-7.7) k/uL Myelocytes # (Manual) 0.60 H (0) k/uL Nucleated RBCs 4 H (0-0) /100 WBC Anion Gap 14.30 H (4.00-12.00) mmol/L Glucose 182 H (70-110) mg/dL Microbiology - Last 24 Hours (Table) 04/14/20 16:36 Blood Culture - Preliminary Blood No Growth after 96 hours Assessment and Plan Assessment: -Acute hypoxic respiratory failure secondary to COVID-19 pneumonia. Patient maintained on azithromycin 500 mg IV piggyback daily, ceftriaxone 1 g IV piggyback daily, dexamethasone 6 mg oral daily, vitamin C 500 mg daily, vitamin D 5000 units daily, zinc 220 mg daily, albuterol inhaler 4 times daily as needed. Pulmonary following -Elevated d-dimer secondary to Covid 19. -Chronic kidney disease stage III, stable. -Hypertension -History of bilateral PE and bilateral DVT on lifelong anticoagulation with Eliquis. -Hemiparesis left side from previous CVA. -Parkinson's disease. Tremors noted -Hypothyroidism. -Seizure disorder. -Anemia of chronic kidney disease. -Chronic hypoxic respiratory failure on home O2 at 3 L nasal cannula. -Chronic sacral ulcer stage III nonhealing -Recurrent depression, anxiety and panic attacks. -History of colorectal cancer status post radiation cellulitis of sacrum. Plan: Continue current medications. Patient to continue with IV antibiotics along with breathing inhalational treatments. She also continues on both a nonrebreather and nasal cannula 15L and is currently 97%. Discussed with nursing staff about weaning FiO2 as tolerated. She was also found to be febrile today and responded to Tylenol. Will continue to monitor vital signs closely. Patient is more alert and oriented today and is taking medications and eating. Sitter at the bedside for safety and redirection. Social work following as patient is returning to [facility] once stabilized and discharged. Further recommendations to follow.
[2020-04-19] MEDS ORDERED: ONDANSETRON 4 MG/2 ML VIAL IVP PRN (14:28)
[2020-04-19] MEDS: AZITHROMYCIN 500 MG in SODIUM CHLORIDE 0.9% 250 ML IVPB SCH (17:44)
[2020-04-19] MEDS: traZODone HCL 50 MG TAB PO SCH (20:34)
[2020-04-19] MEDS: SENNOSIDES-DOCUSATE SODIUM 1 EACH TAB PO SCH (20:34)
[2020-04-19] MEDS: MELATONIN 5 MG TABLET PO SCH (20:35)
[2020-04-19] MEDS: PANTOPRAZOLE 40 MG/10 ML VIAL IVP SCH (20:36)
[2020-04-20] MEDS: SODIUM CHLORIDE 0.45% 1,000 ML IV SCH ×2 (05:37→10:07)
[2020-04-20] MEDS: FUROSEMIDE 20 MG TAB PO SCH (05:46)
[2020-04-20] MEDS: ACETAMINOPHEN TAB 500 MG TAB PO SCH (05:46)
[2020-04-20] MEDS: LEVOTHYROXINE 25 MCG TAB PO SCH (05:47)
[2020-04-20 07:06] LABS: Anisocytosis Slight; Basophils % (A) 0 %; Eosinophils % (A) 0 %; HCT 30.9 % (34.0-46.0); Hypochromasia Marked; Lymphocytes # (A) 0.5 k/uL (1.0-4.8); Lymphocytes % (A) 4 %; MCH 26.4 pg (25.0-35.0); MCHC 29.3 g/dL (31.0-37.0); MCV 90.2 fL (80.0-100.0); Mean Platelet Volume 9.3; Monocytes # (A) 0.4 k/uL (0-1.0); Monocytes % (A) 4 %; Neutrophils # (A) 9.9 k/uL (1.3-7.7); Neutrophils % (A) 90 %; Platelet Count 331 k/uL (150-450); RBC 3.43 m/uL (3.80-5.40); RDW 17.9 % (11.5-15.5)
[2020-04-20] MEDS: Tofacitinib Citrate [Xeljanz Xr] 11 MG Tab.Er.24h PO SCH (08:34)
[2020-04-20 08:36] LABS: Poikilocytosis (M) Present; Polychromasia Present
[2020-04-20 08:37] LABS: Mixed Population RBC Present
[2020-04-20] MEDS: DICYCLOMINE 10 MG CAP PO SCH ×2 (08:37→21:22)
[2020-04-20] MEDS: POTASSIUM CHLORIDE ER 20 MEQ TAB.ER PO SCH (08:37)
[2020-04-20] MEDS: ZINC SULFATE 220 MG CAP PO SCH (08:37)
[2020-04-20] MEDS: LORATADINE 10 MG TAB PO SCH (08:38)
[2020-04-20] MEDS: CHOLECALCIFEROL 1,000 UNIT TAB PO SCH (08:38)
[2020-04-20] MEDS: busPIRone HCl 10 MG TAB PO SCH ×2 (08:38→21:22)
[2020-04-20] MEDS: ASCORBIC ACID 500 MG TAB PO SCH (08:38)
[2020-04-20] MEDS: CARBIDOPA-LEVODOPA 25-100 MG 1 EACH TAB PO SCH ×3 (08:38→21:21)
[2020-04-20] MEDS: APIXABAN 5 MG TAB PO SCH ×2 (08:38→21:21)
[2020-04-20] MEDS: levETIRAcetam 500 MG TAB PO SCH ×2 (08:38→21:21)
[2020-04-20] MEDS: atenoloL 25 MG TAB PO SCH (08:39)
[2020-04-20] MEDS: GABAPENTIN 300 MG CAP PO SCH ×3 (08:39→21:22)
[2020-04-20] MEDS: BACLOFEN 10 MG TAB PO SCH ×3 (08:39→21:21)
[2020-04-20] MEDS: DEXAMETHASONE SOD PHOSPHATE 10 MG/ML 1 ML VIAL IV SCH (08:39)
[2020-04-20] MEDS: PANTOPRAZOLE 40 MG/10 ML VIAL IVP SCH ×2 (08:40→21:21)
[2020-04-20] MEDS: oxyCODONE-APAP 10-325MG 1 EACH TAB PO SCH ×4 (08:41→22:06)
[2020-04-20] MEDS: SYMBICORT 80-4.5 MCG INHALER INHALATION SCH ×2 (08:44→19:17)
[2020-04-20] MEDS: ALBUTEROL HFA INHALER INHALATION SCH ×4 (08:44→19:17)
[2020-04-20 11:29] LABS: Anion Gap 12.9 mmol/L (4.00-12.00); BUN/Creat Ratio 22.22 Ratio (12.00-20.00); Calcium 8.7 mg/dL (8.7-10.3); Carbon Dioxide 26.1 mmol/L (21.6-31.8); Non-African American GFR(CKD) 63.9 (60.0-200.0); Potassium 4.9 mmol/L (3.5-5.5)
--- NOTE | 2020-04-20 12:13 | P.PN ---
Subjective Progress Note Date: 04/20/20 75-year-old male patient is a long-term resident with multiple medical problems including COPD, previous history of CVA, hypertension, hyperlipidemia, a Parkinson's disease in addition to chronic anxiety and depression and panic disorder. The patient is currently in the hospital for acute hypoxic respi ratory failure secondary to COVID 19 Pneumonia. The patient was initiated on dexamethasone, vitamin C, vitamin D, zinc and linezolid and sepsis. The patient is currently on on the percent nonrebreather and Addition to 15 L nasal cannula. He was out of the window Remdesivir. The patient has resting tremors. The patient is a bit restless in bed. She is still feeling short of breath. She is also bronchospastic and wheezy. Her IV fluids are running at 0.9 at 10 mL an hour. Her sodium level is up to 147. BUN is 21 with a creatinine of 0.9. LDH is down to 450. The chest x-ray showing peripheral infiltrates more so on the left. This is a rotated film. She is on Rocephin. She is on Decadron. She is on Zithromax. She is on vitamin supplements for coronavirus Covid 19 infection. On 04/19/2020, I'm seeing this patient in follow-up regarding her COVID 19 related pneumonia. The patient is on 100% nonrebreather facemask in addition to a 15 L high flow oxygen. The patient remains on Decadron. She is on anticoagulation with Eliquis. She has a previous history of DVT and pulmonary embolism. She has a sitter at the bedside. She was episodically confused. On today's evaluation she seems much more appropriate and she is able to answer questions appropriately. The white cell count is at 15 with a hemoglobin of 9.8. Platelet count is at 394. The patient is also having a normal renal function. Repeat chest x-ray was done today showed patchy density in the right upper lobe and right lower lobe and the left upper lobe. No evidence of any pneumothorax. She did have a pressure temperature of 101.1. On today's evaluation on 04/20/2020 patient seen in follow-up on the general medical surgical floor, she is resting comfortably in bed, she still requiring high flow oxygen currently on 15 L per high flow cannula and 100% nonrebreather, and she is satting at 85-90%. She's been afebrile, she's been hemodynamically stable. Yesterday chest x-ray showed patchy density in the right upper and right lower lobe, possibly left upper lobe, patient remains on Decadron, she is on empiric antibiotics in the form of Rocephin. On occasional cough, with no phlegm production, she denies any chest pain, she was in the hospital, she could not remember the date, but appears to be less confused on today's exam. States she is bored, but otherwise no specific complaints, no nausea vomiting or diarrhea Objective - Vital Signs Vital signs: Vital Signs Temp 97.8 F 04/20/20 10:37 Pulse 86 04/20/20 10:37 Resp 24 04/20/20 10:37 BP 153/75 04/20/20 10:37 Pulse Ox 85 L 04/20/20 10:37 Intake & Output 04/19/20 04/20/20 04/20/20 18:59 06:59 18:59 Intake Total 1170 1260 Output Total 1300 1426 Balance -130 -166 Weight 83.007 kg Intake: Intake, IV Titration 1050 900 Amount Azithromycin 500 mg In 250 Sodium Chloride 0.9% 250 ml @ 250 mls/hr IVPB Q24H [facility] Rx#:[id number] Sodium Chloride 0.45% 1, 700 900 000 ml @ 75 mls/hr IV . [id number] [facility] Rx#:[id number] cefTRIAXone 1 gm In 100 Sodium Chloride 0.9% 50 ml @ 100 mls/hr IVPB Q24HR [facility]AEL Rx#:[id number] Oral 120 360 Output: Urine 1300 1425 Uretheral (Arceo) 1300 725 Stool 1 Other: Voiding Method Indwelling Catheter Indwelling Catheter Indwelling Catheter # Bowel Movements 1 - Exam GENERAL EXAM: Alert, Comfortable, 74-year-old white female, on 15 L per high flow nasal cannula in the 100% nonrebreather, with pulse ox of 85% comfortable in no apparent distress. HEAD: Normocephalic/atraumatic. EYES: Normal reaction of pupils, equal size. Conjunctiva pink, sclera white. NOSE: Clear with pink turbinates. THROAT: No erythema or exudates. NECK: No masses, no JVD, no thyroid enlargement, no adenopathy. CHEST: No chest wall deformity. Symmetrical expansion. LUNGS: Equal air entry with no crackles, wheeze, rhonchi or dullness. CVS: Regular rate and rhythm, normal S1 and S2, no gallops, no murmurs, no rubs ABDOMEN: Soft, nontender. No hepatosplenomegaly, normal bowel sounds, no guarding or rigidity. EXTREMITIES: No clubbing, no edema, no cyanosis, 2+ pulses and upper and lower extremities. MUSCULOSKELETAL: Muscle strength and tone normal. SPINE: No scoliosis or deformity SKIN: No rashes CENTRAL NERVOUS SYSTEM: Alert and oriented -3. No focal deficits, tone is normal in all 4 extremities. PSYCHIATRIC: Alert and oriented -3. Appropriate affect. Intact judgment and insight. - Labs CBC & Chem 7: 04/20/20 05:35 04/20/20 05:35 Labs: Abnormal Lab Results - Last 24 Hours (Table) 04/20/20 04/20/20 Range/Units 05:35 05:35 WBC 11.0 H (3.8-10.6) k/uL RBC 3.43 L (3.80-5.40) m/uL Hgb 9.0 L (11.4-16.0) gm/dL Hct 30.9 L (34.0-46.0) % MCHC 29.3 L (31.0-37.0) g/dL RDW 17.9 H (11.5-15.5) % Neutrophils # 9.9 H (1.3-7.7) k/uL Lymphocytes # 0.5 L (1.0-4.8) k/uL Anion Gap 12.90 H (4.00-12.00) mmol/L BUN/Creatinine Ratio 22.22 H (12.00-20.00) Ratio Glucose 279 H (70-110) mg/dL Microbiology - Last 24 Hours (Table) 04/14/20 16:36 Blood Culture - Preliminary Blood No Growth after 120 hours Assessment and Plan Plan: Assessment: 1 Acute on chronic hypoxic respiratory failure secondary to acute CoVID 19 pneumonitis, originally tested at [facility], outside the window for Remdesivir the patient is currently on 100% nonrebreather facemask in addition to oxygen at 15 L. There has been worsening in her oxygenation. A repeat chest x-ray still follow. The patient remains on Decadron. The patient is also on antic oagulation with Eliquis for previous history of DVT and pulmonary embolism. the chest x-ray from today is showing some infiltration of the right lung. The patient's pulse ox is quite stable. She is a mouth breather. She prefers to stay on a partial nonrebreather. We'll continue that and will continue the steroid treatment for now in addition to Eliquis.note that the patient had some improving trend and her inflammatory markers from few days ago. 2 Elevated d-dimer secondary to CoVID 19. On Eliquis. 3 History of bilateral PE and bilateral DVT on Eliquis in the outpatient setting 4 Chronic hypoxic respiratory failure on oxygen at 2-3 L 5 History of CVA with left-sided romi-paresis 6 Parkinson's disease with tremors 7 History of seizures 8 Hypertension 9 Chronic kidney disease stage III 10 Hypertension 11 Hypothyroidism 12 Chronic sacral ulcer stage III nonhealing 13 History of colorectal cancer status post radiation 14 History of anxiety/depression/panic attacks 15 Poor overall functional performance based on the above-mentioned multiple comorbidities, long-term residentOr graft plan: Plan: Continue current medical treatment, continue steroids, anticoagulation, continue oral diuretics, and antibiotics, despite wearing high flow oxygen patient denies worsening dyspnea, we'll obtain follow-up chest x-ray tomorrow, she denies any cough, she's been afebrile, hemodynamically she is stable. Maintain saturations above 90, will use Airvo device. Her CODE STATUS needs to be addressed with her legal guardian. I performed a history & physical examination of the patient and discussed their management with my nurse practitioner, Rosa Lan. I reviewed the nurse practitioner's note and agree with the documented findings and plan of care. Lung sounds are positive for Diminished breath sounds The findings and the impression was discussed with the patient. I attest to the documentation by the nurse practitioner. Time with Patient: Less than 30
[2020-04-20] MEDS: FOLIC ACID 1 MG TAB PO SCH (12:46)
[2020-04-20] MEDS: ALPRAZolam 0.25 MG TAB PO SCH ×2 (12:46→21:22)
[2020-04-20] MEDS: HYDROPHILIC CREAM 180 GM TUBE TOPICAL SCH (12:51)
--- NOTE | 2020-04-20 15:10 | P.PN ---
Subjective Progress Note Date: 04/20/20 Acute hypoxic respiratory failure secondary to COVID-19 pneumonia. 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 Patient recently tested positive at [facility] with rapid Covid testing reported yesterday to the nurse and patient experienced increasing difficulty with breathing with hypoxia, pulse ox down in the low 80s. Patient was having shortness of breath. No chest pain or palpitations. No fever or chills. No cough. Patient was transferred to [facility] emergency center for evaluation. Patient was afebrile, heart rate 65, blood pressure 105/75, pulse ox 94% EKG was a sinus rhythm with no acute ST changes. Chest x-ray positive for pneumonia Data CBC 6.5, hemoglobin 9.1, platelet count 312. Electrolytes normal. BUN 21 and creatinine 1.28. Blood sugar 113. AST 70. LDH 1120, C-reactive protein 55.6. Lactic acid 1.1. Influenza testing negative. Subsequently, COVID-19 ordered. 04/16/2020 Patient is currently lying in bed comfortably. No complaints of chest pain or shortness of breath. Still requiring oxygen at 15 L high flow via nasal cannula. Patient has been afebrile. Patient is being continued antibiotics in the form of ceftriaxone and azithro mycin. Also continued on dexamethasone and Eliquis. Patient is a poor historian due to underlying dementia. Laboratory data reviewed. 04/17/2020 Patient is currently lying in bed comfortably. No acute distress. Still requiring 15 L high flow oxygen via nasal cannula. Chest x-ray showed mild patc hy infiltrate in the left mid and lower lung. Patient is being continued on dexamethasone, Eliquis and vitamin supplementation. Patient has been afebrile otherwise. Follow-up CBC and BMP tomorrow. Current medications reviewed. 04/18/2020 Patient is seen and evaluated and follow-up continues to be confused and pulling out IV catheter. Multiple attempts have been made by nursing staff and an order for a midline was placed. Patient continues to require 15 L high flow via nasal cannula along with a nonrebreather and needs constant redirection as she continues to try to take off the oxygen. Patient is maintained on dexamethasone and vitamin supplementation and will continue at this time. Patient also continues on IV antibiotics in the form of ceftriaxone and azithromycin. Review of systems: Unable to obtain as patient is confused 04/19/2020 Patient is seen and evaluated in follow-up and appears to be more alert and oriented today. Patient does have a sitter at the bedside she was continuing to remove her nasal cannula nonrebreather. Patient currently remains on 15 L high flow along with nonrebreather and discussed with nursing staff about weaning FiO2 as tolerated she was 97%. Repeat chest x-ray done today shows patchy density in the right upper and right lower lobe possible left upper lobe with no evidence of pneumothorax or pleural effusion noted. Patient was also noted to have low-grade fevers which responded with Tylenol. Patient is eating today and taking medications and will continue with current medication regimen. Pulmonary is following. 04/20/2020 Patient seen in follow-up continues to be severely dyspneic and was maintained on 15 L high flow along with nonrebreather at 89% saturation. Pulmonary following closely. Patient was placed on Airvo and tolerating thus far. Will continue to monitor respiratory status closely. Patient continues to be alert today although lethargic and responding appropriately to questions and commands. Patient has little oral intake although is taking medications per nursing staff. Sodium slightly improved at 141, potassium is 4.9, creatinine remains at 0.9, and blood sugars continue to be slightly elevated most likely due to steroids. Patient remains on IV antibiotics in the form of ceftriaxone and oral Zithromax. Patient is currently afebrile Review of systems: Constitutional: reports fatigue, no reports chills and fever Cardiovascular: No reports of chest pain or palpitations Respiratory: Reports shortness of breath and cough GI: No reports of nausea, vomiting, or diarrhea : No reports of dysuria or retention Neurovascular: Reports weakness, reports generalized pain All medications have been reviewed Objective - Vital Signs Vital signs: Vital Signs Temp 97.8 F 04/20/20 10:37 Pulse 86 04/20/20 10:37 Resp 24 04/20/20 10:37 BP 153/75 04/20/20 10:37 Pulse Ox 85 L 04/20/20 10:37 Intake & Output 04/19/20 04/20/20 04/20/20 18:59 06:59 18:59 Intake Total 1170 1260 Output Total 1300 1426 Balance -130 -166 Weight 83.007 kg Intake: Intake, IV Titration 1050 900 Amount Azithromycin 500 mg In 250 Sodium Chloride 0.9% 250 ml @ 250 mls/hr IVPB Q24H [facility] Rx#:[id number] Sodium Chloride 0.45% 1, 700 900 000 ml @ 75 mls/hr IV . [id number] [facility] Rx#:[id number] cefTRIAXone 1 gm In 100 Sodium Chloride 0.9% 50 ml @ 100 mls/hr IVPB Q24HR [facility] Rx#:[id number] Oral 120 360 Output: Urine 1300 1425 Uretheral (Arceo) 1300 725 Stool 1 Other: Voiding Method Indwelling Catheter Indwelling Catheter Indwelling Catheter # Bowel Movements 1 - Exam Gen: This is a 74-year-old female lying in bed, awake, alert and oriented 2-3, well-developed, well-nourished. HEENT: Head is atraumatic, normocephalic. Pupils equal, round. Sclerae is anicteric. NECK: Supple. No JVD. No lymphadenopathy. No thyromegaly. LUNGS: Diminished breath sounds bilaterally with some scattered rhonchi and crackles noted. No intercostal retractions. Airvo now present HEART: S1, S2 are muffled ABDOMEN: Soft. Bowel sounds are present. No masses. No tenderness. EXTREMITIES: No pedal edema. No calf tenderness. NEUROLOGICAL: Patient is awake, alert and oriented x2-3. Cranial nerves 2 through 12 are grossly intact. diffusely weak - Labs CBC & Chem 7: 04/20/20 05:35 04/20/20 05:35 Labs: Abnormal Lab Results - Last 24 Hours (Table) 04/20/20 04/20/20 Range/Units 05:35 05:35 WBC 11.0 H (3.8-10.6) k/uL RBC 3.43 L (3.80-5.40) m/uL Hgb 9.0 L (11.4-16.0) gm/dL Hct 30.9 L (34.0-46.0) % MCHC 29.3 L (31.0-37.0) g/dL RDW 17.9 H (11.5-15.5) % Neutrophils # 9.9 H (1.3-7.7) k/uL Lymphocytes # 0.5 L (1.0-4.8) k/uL Anion Gap 12.90 H (4.00-12.00) mmol/L BUN/Creatinine Ratio 22.22 H (12.00-20.00) Ratio Glucose 279 H (70-110) mg/dL Microbiology - Last 24 Hours (Table) 04/14/20 16:36 Blood Culture - Preliminary Blood No Growth after 120 hours Assessment and Plan Assessment: -Acute hypoxic respiratory failure secondary to COVID-19 pneumonia. Patient maintained on azithromycin 500 which has been transitioned oral, ceftriaxone 1 g IV piggyback daily, dexamethasone 6 mg IV, vitamin C 500 mg daily, vitamin D 5000 units daily, zinc 220 mg daily, albuterol inhaler 4 times daily as needed. Pulmonary following. Patient was maintained on nasal cannula along with nonrebreather at 15 L and has been transitioned to Airvo as she was at 88% and dyspneic -Elevated d-dimer secondary to Covid 19. -Chronic kidney disease stage III, stable. -Hypertension -History of bilateral PE and bilateral DVT on lifelong anticoagulation with El iquis. -Hemiparesis left side from previous CVA. -Parkinson's disease. Tremors noted -Hypothyroidism. -Seizure disorder. -Anemia of chronic kidney disease. -Chronic hypoxic respiratory failure on home O2 at 3 L nasal cannula. -Chronic sacral ulcer stage III nonhealing -Recurrent depression, anxiety and panic attacks. -History of colorectal cancer status post radiation cellulitis of sacrum. Plan: Continue current medications. Patient to continue with IV antibiotics along with breathing inhalational treatments. She has been transitioned airvo as she continued to be hypoxic and severely dyspneic on the nonrebreather and nasal cannula 15 L. Discussed with nursing staff about weaning FiO2 as tolerated. Will continue to monitor vital signs closely. Patient is more alert and oriented today and is taking medications and eating although poor oral intake and needs assistance. Social work following as patient is returning to [facility] once stabilized and discharged. Further recommendations to follow.
[2020-04-20] MEDS: AZITHROMYCIN 500 MG TAB PO SCH (16:09)
[2020-04-20] MEDS: MELATONIN 5 MG TABLET PO SCH (21:21)
[2020-04-20] MEDS: SENNOSIDES-DOCUSATE SODIUM 1 EACH TAB PO SCH (21:21)
[2020-04-20] MEDS: traZODone HCL 50 MG TAB PO SCH (22:06)
[2020-04-21] MEDS: LEVOTHYROXINE 25 MCG TAB PO SCH (05:22)
[2020-04-21] MEDS: ACETAMINOPHEN TAB 500 MG TAB PO SCH (05:23)
[2020-04-21] MEDS: FUROSEMIDE 20 MG TAB PO SCH (05:23)
[2020-04-21 06:58] LABS: Anisocytosis Slight; Basophils % (A) 0 %; Eosinophils % (A) 0 %; HCT 28.5 % (34.0-46.0); HGB 8.5 gm/dL (11.4-16.0); Hypochromasia Marked; Lymphocytes # (A) 0.5 k/uL (1.0-4.8); Lymphocytes % (A) 5 %; MCH 26.4 pg (25.0-35.0); MCHC 29.7 g/dL (31.0-37.0); MCV 88.8 fL (80.0-100.0); Monocytes # (A) 0.4 k/uL (0-1.0); Monocytes % (A) 4 %; Neutrophils # (A) 8.6 k/uL (1.3-7.7); Neutrophils % (A) 88 %; Platelet Count 314 k/uL (150-450); RBC 3.21 m/uL (3.80-5.40); RDW 17.8 % (11.5-15.5); WBC 9.8 k/uL (3.8-10.6)
[2020-04-21 07:55] LABS: Polychromasia Present
[2020-04-21] MEDS: SYMBICORT 80-4.5 MCG INHALER INHALATION SCH ×2 (08:09→20:47)
[2020-04-21] MEDS: ALBUTEROL HFA INHALER INHALATION SCH ×4 (08:09→20:47)
[2020-04-21] MEDS: DEXAMETHASONE SOD PHOSPHATE 10 MG/ML 1 ML VIAL IV SCH (09:06)
[2020-04-21] MEDS: ZINC SULFATE 220 MG CAP PO SCH (09:06)
[2020-04-21] MEDS: PANTOPRAZOLE 40 MG/10 ML VIAL IVP SCH (09:06)
[2020-04-21] MEDS: atenoloL 25 MG TAB PO SCH (09:07)
[2020-04-21] MEDS: POTASSIUM CHLORIDE ER 20 MEQ TAB.ER PO SCH (09:07)
[2020-04-21] MEDS: APIXABAN 5 MG TAB PO SCH ×2 (09:07→20:04)
[2020-04-21] MEDS: busPIRone HCl 10 MG TAB PO SCH ×2 (09:07→20:05)
[2020-04-21] MEDS: ASCORBIC ACID 500 MG TAB PO SCH (09:07)
[2020-04-21] MEDS: LORATADINE 10 MG TAB PO SCH (09:07)
[2020-04-21] MEDS: CARBIDOPA-LEVODOPA 25-100 MG 1 EACH TAB PO SCH ×3 (09:07→20:06)
[2020-04-21] MEDS: levETIRAcetam 500 MG TAB PO SCH ×2 (09:07→21:10)
[2020-04-21] MEDS: CHOLECALCIFEROL 1,000 UNIT TAB PO SCH (09:08)
[2020-04-21] MEDS: DICYCLOMINE 10 MG CAP PO SCH ×2 (09:08→20:06)
[2020-04-21] MEDS: BACLOFEN 10 MG TAB PO SCH ×3 (09:08→20:06)
[2020-04-21] MEDS: GABAPENTIN 300 MG CAP PO SCH ×3 (09:08→20:05)
[2020-04-21] MEDS: oxyCODONE-APAP 10-325MG 1 EACH TAB PO SCH ×4 (09:09→21:10)
[2020-04-21 09:35] LABS: African American GFR (CKD) 85.4 (60.0-200.0); Anion Gap 7.5 mmol/L (4.00-12.00); BUN/Creat Ratio 27.5 Ratio (12.00-20.00); Calcium 8.3 mg/dL (8.7-10.3); Carbon Dioxide 28.5 mmol/L (21.6-31.8); Non-African American GFR(CKD) 73.7 (60.0-200.0); Potassium 4.5 mmol/L (3.5-5.5)
[2020-04-21] MEDS: Tofacitinib Citrate [Xeljanz Xr] 11 MG Tab.Er.24h PO SCH (09:35)
[2020-04-21] MEDS: FOLIC ACID 1 MG TAB PO SCH (13:02)
[2020-04-21] MEDS: ALPRAZolam 0.25 MG TAB PO SCH ×2 (13:02→20:06)
[2020-04-21] MEDS: SODIUM CHLORIDE 0.45% 1,000 ML IV SCH ×2 (13:03→21:11)
--- NOTE | 2020-04-21 15:04 | P.PN ---
Subjective Progress Note Date: 04/21/20 On 04/21/2020, the patient is being seen in follow-up. The patient remains in a partial nonrebreather facemask and a high flow oxygen at 60 L also added to her regimen.. She remains on Decadron features anticoagulants with Eliquis. She has previous history of DVT and pulmonary embolism. She is quite debilitated. She is known to have COPD and previous history of CVA. She is also known to have hypertension. Comorbidities include Parkinson's disease and she has resting tremors an underlying dementia. She is weak. She is debilitated. Oral intake is minimal at this point in time. She is on normal saline at the rate of 75 mL an hour. Blood work shows no major abnormalities. Objective - Vital Signs Vital signs: Vital Signs Temp 98.6 F 04/21/20 11:00 Pulse 84 04/21/20 11:00 Resp 18 04/21/20 11:00 BP 177/76 04/21/20 11:00 Pulse Ox 95 04/21/20 11:00 Intake & Output 04/20/20 04/21/20 04/21/20 18:59 06:59 18:59 Intake Total 1400 Output Total 1999 901 Balance -600 -901 Weight 83.007 kg Intake: Intake, IV Titration 900 Amount Sodium Chloride 0.45% 1, 900 000 ml @ 75 mls/hr IV . [id number] [facility] Rx#:[id number] Oral 500 Output: Urine 2000 900 Uretheral (Arceo) 2000 900 Stool 1 Other: Voiding Method Indwelling Catheter Indwelling Catheter Indwelling Catheter # Bowel Movements 1 - Exam GENERAL EXAM: Alert, confused, 74-year-old female patient, Parkinson tremors, on 60 L high flow nasal cannula in addition to 100% nonrebreather facemask., fairly comfortable in no apparent distress.the patient has resting tremors related to Parkinson's disease. She has significant poker facies. HEAD: Normocephalic. EYES: Normal reaction of pupils, equal size. NOSE: Clear with pink turbinates. THROAT: No erythema or exudates. NECK: No masses, no JVD. CHEST: No chest wall deformity. LUNGS: Equal air entry with bilateral scattered rhonchi CVS: S1 and S2 normal with no audible murmur, regular rhythm. ABDOMEN: No hepatosplenomegaly, normal bowel sounds, no guarding or rigidity. SPINE: No scoliosis or deformity SKIN: Chronic sacral decubitus ulcer CENTRAL NERVOUS SYSTEM: Essential tremors, left-sided hemiparesis from previous CVA, tone is normal in all 4 extremities. EXTREMITIES: There is no peripheral edema. No clubbing, no cyanosis. Perip heral pulses are intact. - Labs CBC & Chem 7: 04/21/20 06:26 04/21/20 06:26 Labs: Abnormal Lab Results - Last 24 Hours (Table) 04/21/20 04/21/20 Range/Units 06:26 06:26 RBC 3.21 L (3.80-5.40) m/uL Hgb 8.5 L (11.4-16.0) gm/dL Hct 28.5 L (34.0-46.0) % MCHC 29.7 L (31.0-37.0) g/dL RDW 17.8 H (11.5-15.5) % Neutrophils # 8.6 H (1.3-7.7) k/uL Lymphocytes # 0.5 L (1.0-4.8) k/uL BUN/Creatinine Ratio 27.50 H (12.00-20.00) Ratio Glucose 270 H (70-110) mg/dL Calcium 8.3 L (8.7-10.3) mg/dL Microbiology - Last 24 Hours (Table) 04/14/20 16:36 Blood Culture - Final Blood No Growth after 144 hours Assessment and Plan Plan: 1 Acute on chronic hypoxic respiratory failure secondary to acute CoVID 19 pneumonitis, originally tested at [facility], [facility] the patient is currently on 100% nonrebreather facemask in addition to oxygen at 60 L high flow. Her oxygenation is stable compared to yesterday. The patient continues to be on the same settings of oxygen delivery. The patient remains on Decadron. The patient is also on anticoagulation with Eliquis for previous history of DVT and pulmonary embolism. 2 Elevated d-dimer secondary to CoVID 19. On Eliquis. 3 History of bilateral PE and bilateral DVT on Eliquis in the outpatient setting 4 Chronic hypoxic respiratory failure on oxygen at 2-3 L 5 History of CVA with left-sided romi-paresis 6 Parkinson's disease with tremors 7 History of seizures 8 Hypertension 9 Chronic kidney disease stage III 10 Hypertension 11 Hypothyroidism 12 Chronic sacral ulcer stage III nonhealing 13 History of colorectal cancer status post radiation 14 History of anxiety/depression/panic attacks 15 Poor overall functional performance based on the above-mentioned multiple comorbidities, [facility] resident Plan: No major improvement in her condition. Based on her comorbidities, the patient is extremely debilitated. Her oral intake is minimal. She has poor insight on her condition. She'll be kept on the same oxygen setting which is 100% nonrebreather facemask and a high flow oxygen at 60 L per minute. IV fluids to half-normal saline today to 75 mL an hour. Continue Decadron Establish CODE STATUS, for now she is full code We'll continue with the current treatment plan Titrate the FiO2 as tolerated We'll continue to follow and make further recommendations based on her clinical status
--- NOTE | 2020-04-21 15:20 | P.PN ---
Subjective Progress Note Date: 04/21/20 Acute hypoxic respiratory failure secondary to COVID-19 pneumonia. This is a 74-year-old female patient of mine currently residing at [facility] on the [place] and is wheelchair bound with past medical history of hypertension, coronary artery disease, history of bilateral PE and bilateral DVT on lifelong anticoagulation with Eliquis, hyperlipidemia, Parkinson's, hypothyroidism, seizure disorder, history of stroke, anemia of chronic disease, chronic back pain, chronic hypoxic respiratory failure on home O2 at 3 L nasal cannula, COPD, rheumatoid arthritis, chronic Arceo catheter, chronic sacral ulcer stage III nonhealing ulceration of the toxic previously seen at the wound care center, recurrent depression, anxiety and panic attacks, history 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 Patient recently tested positive at [facility] with rapid Covid testing reported yesterday to the nurse and patient experienced increasing difficulty with breathing with hypoxia, pulse ox down in the low 80s. Patient was having shortness of breath. No chest pain or palpitations. No fever or chills. No cough. Patient was transferred to [facility] emergency center for evaluation. Patient was afebrile, heart rate 65, blood pressure 105/75, pulse ox 94% EKG was a sinus rhythm with no acute ST changes. Chest x-ray positive for pneumonia Data CBC 6.5, hemoglobin 9.1, platelet count 312. Electrolytes normal. BUN 21 and creatinine 1.28. Blood sugar 113. AST 70. LDH 1120, C-reactive protein 55.6. Lactic acid 1.1. Influenza testing negative. Subsequently, COVID-19 ordered. 04/16/2020 Patient is currently lying in bed comfortably. No complaints of chest pain or shortness of breath. Still requiring oxygen at 15 L high flow via nasal cannula. Patient has been afebrile. Patient is being continued antibiotics in the form of ceftriaxone and azithro mycin. Also continued on dexamethasone and Eliquis. Patient is a poor historian due to underlying dementia. Laboratory data reviewed. 04/17/2020 Patient is currently lying in bed comfortably. No acute distress. Still requiring 15 L high flow oxygen via nasal cannula. Chest x-ray showed mild patc hy infiltrate in the left mid and lower lung. Patient is being continued on dexamethasone, Eliquis and vitamin supplementation. Patient has been afebrile otherwise. Follow-up CBC and BMP tomorrow. Current medications reviewed. 04/18/2020 Patient is seen and evaluated and follow-up continues to be confused and pulling out IV catheter. Multiple attempts have been made by nursing staff and an order for a midline was placed. Patient continues to require 15 L high flow via nasal cannula along with a nonrebreather and needs constant redirection as she continues to try to take off the oxygen. Patient is maintained on dexamethasone and vitamin supplementation and will continue at this time. Patient also continues on IV antibiotics in the form of ceftriaxone and azithromycin. Review of systems: Unable to obtain as patient is confused 04/19/2020 Patient is seen and evaluated in follow-up and appears to be more alert and oriented today. Patient does have a sitter at the bedside she was continuing to remove her nasal cannula nonrebreather. Patient currently remains on 15 L high flow along with nonrebreather and discussed with nursing staff about weaning FiO2 as tolerated she was 97%. Repeat chest x-ray done today shows patchy density in the right upper and right lower lobe possible left upper lobe with no evidence of pneumothorax or pleural effusion noted. Patient was also noted to have low-grade fevers which responded with Tylenol. Patient is eating today and taking medications and will continue with current medication regimen. Pulmonary is following. 04/20/2020 Patient seen in follow-up continues to be severely dyspneic and was maintained on 15 L high flow along with nonrebreather at 89% saturation. Pulmonary following closely. Patient was placed on Airvo and tolerating thus far. Will continue to monitor respiratory status closely. Patient continues to be alert today although lethargic and responding appropriately to questions and commands. Patient has little oral intake although is taking medications per nursing staff. Sodium slightly improved at 141, potassium is 4.9, creatinine remains at 0.9, and blood sugars continue to be slightly elevated most likely due to steroids. Patient remains on IV antibiotics in the form of ceftriaxone and oral Zithromax. Patient is currently afebrile 04/21/2020 Patient is seen and evaluated in follow-up currently maintained on airvo at 60% along with a nonrebreather on 15 L and is currently maxed with oxygenation of 90%. Patient continues to be lethargic although is arousable and responding appropriately. Patient continues to be quite weak and lethargic and falls asleep easily. Oral intake is fairly poor and minimal at this time. Patient needs maximum assistance. Discussed with legal guardian about CODE STATUS yesterday and wishes to continue with full code without mechanical ventilation and will continue to monitor closely. Patient's prognosis is poor and showing no real improvement at this time. Will continue to monitor and readdress with legal guardian based on clinical course. Review of systems: Constitutional: reports fatigue, no reports chills and fever Cardiovascular: No reports of chest pain or palpitations Respiratory: Reports shortness of breath and cough GI: No reports of nausea, vomiting, or diarrhea : No reports of dysuria or retention Neurovascular: Reports weakness, reports generalized pain All medications have been reviewed Objective - Vital Signs Vital signs: Vital Signs Temp 98.6 F 04/21/20 11:00 Pulse 84 04/21/20 11:00 Resp 18 04/21/20 11:00 BP 177/76 04/21/20 11:00 Pulse Ox 95 04/21/20 11:00 Intake & Output 04/20/20 04/21/20 04/21/20 18:59 06:59 18:59 Intake Total 1400 Output Total 1999 901 Balance -600 -901 Intake: Intake, IV Titration 900 Amount Sodium Chloride 0.45% 1, 900 000 ml @ 75 mls/hr IV . [id number] [facility] Rx#:[id number] Oral 500 Output: Urine 1999 900 Uretheral (Arceo) 2000 900 Stool 1 Other: Voiding Method Indwelling Catheter Indwelling Catheter Indwelling Catheter # Bowel Movements 1 - Exam Gen: This is a 74-year-old female lying in bed, asleep although arousable , alert and oriented 2-3, well-developed, well-nourished. HEENT: Head is atraumatic, normocephalic. Pupils equal, round. Sclerae is anicteric. NECK: Supple. No JVD. No lymphadenopathy. No thyromegaly. LUNGS: Diminished breath sounds bilaterally with some scattered rhonchi and crackles noted. No intercostal retractions. Airvo now present along with nonrebreather at 15 L HEART: S1, S2 are muffled ABDOMEN: Soft. Bowel sounds are present. No masses. No tenderness. EXTREMITIES: No pedal edema. No calf tenderness. NEUROLOGICAL: Patient is awake, alert and oriented x2-3. Tremors noted. diffusely weak - Labs CBC & Chem 7: 04/21/20 06:26 04/21/20 06:26 Labs: Abnormal Lab Results - Last 24 Hours (Table) 04/21/20 04/21/20 Range/Units 06:26 06:26 RBC 3.21 L (3.80-5.40) m/uL Hgb 8.5 L (11.4-16.0) gm/dL Hct 28.5 L (34.0-46.0) % MCHC 29.7 L (31.0-37.0) g/dL RDW 17.8 H (11.5-15.5) % Neutrophils # 8.6 H (1.3-7.7) k/uL Lymphocytes # 0.5 L (1.0-4.8) k/uL BUN/Creatinine Ratio 27.50 H (12.00-20.00) Ratio Glucose 270 H (70-110) mg/dL Calcium 8.3 L (8.7-10.3) mg/dL Microbiology - Last 24 Hours (Table) 04/14/20 16:36 Blood Culture - Final Blood No Growth after 144 hours Assessment and Plan Assessment: -Acute hypoxic respiratory failure secondary to COVID-19 pneumonia. Patient maintained on azithromycin 500 which has been transitioned oral, ceftriaxone 1 g IV piggyback daily, dexamethasone 6 mg IV, vitamin C 500 mg daily, vitamin D 5000 units daily, zinc 220 mg daily, albuterol inhaler 4 times daily as needed. Pulmonary following. Patient was maintained on nasal cannula along with nonrebreather at 15 L and has been transitioned to Airvo along with nonrebreather and continues to be severely dyspneic and working to breathe. Ill-appearing and exhausted -Elevated d-dimer secondary to Covid 19. -Chronic kidney disease stage III, stable. -Hypertension -History of bilateral PE and bilateral DVT on lifelong anticoagulation with Eliquis. -Hemiparesis left side from previous CVA. -Parkinson's disease. Tremors noted -Hypothyroidism. -Seizure disorder. -Anemia of chronic kidney disease. -Chronic hypoxic respiratory failure on home O2 at 3 L nasal cannula. -Chronic sacral ulcer stage III nonhealing -Recurrent depression, anxiety and panic attacks. -History of colorectal cancer status post radiation cellulitis of sacrum. -Full code without mechanical ventilation, status was discussed with legal guardian and will continue to reassess this patient's prognosis remains poor and guarded Plan: Continue current medications. Patient to continue with IV antibiotics along with breathing inhalational treatments. She has been transitioned airvo as she continued to be hypoxic and severely dyspneic on the nonrebreather and nasal cannula 15 L. Discussed with nursing staff about weaning FiO2 as tolerated. Patient is not tolerating any form of weaning FiO2 and respiratory status continues to deteriorate. Discussed with legal guardian and would like to continue with CODE STATUS of full code without mechanical ventilation. Will continue to monitor vital signs closely. Social work following as patient is returning to [facility] once stabilized and discharged. Prognosis remains poor and guarded and will need to reevaluate CODE STATUS if patient's condition continues to deteriorate. Further recommendations to follow.
[2020-04-21] MEDS: AZITHROMYCIN 500 MG TAB PO SCH (16:54)
[2020-04-21] MEDS: SENNOSIDES-DOCUSATE SODIUM 1 EACH TAB PO SCH (20:05)
[2020-04-21] MEDS: PANTOPRAZOLE 40 MG TABLET PO SCH (20:05)
[2020-04-21] MEDS: MELATONIN 5 MG TABLET PO SCH (20:06)
[2020-04-21] MEDS: traZODone HCL 50 MG TAB PO SCH (21:10)
[2020-04-22] MEDS ORDERED: FUROSEMIDE 10 MG/ML 4 ML VIAL IV STA (00:39)
[2020-04-22] MEDS ORDERED: LABETALOL 5 MG/ML VIAL MDV IVP STA (00:40)
[2020-04-22 00:44] LABS: Glucose,Whole Blood 223 mg/dL (75-99)
[2020-04-22] MEDS ORDERED: HALOPERIDOL LACTATE 5 MG/ML 1 ML VIAL IM PRN ×3 (01:02→14:28)
[2020-04-22 01:14] LABS: ABG Base Excess 4.4 mmol/L; ABG HCO3 28 mmol/L (21-25); ABG Oxygen Saturation 75.3 % (94-97); ABG PCO2 41 mmHg (35-45); ABG PH 7.45 (7.35-7.45); ABG TCO2 30 mmol/L (19-24); Allen Test Performed? Yes
[2020-04-22 01:21] LABS: ABG PO2 41 mmHg (83-108)
--- NOTE | 2020-04-22 01:27 | XR ---
EXAM: XR Chest, 1 View CLINICAL HISTORY: ITS.REASON XR Reason: COVID TECHNIQUE: Frontal view of the chest. COMPARISON: 04/19/2020 FINDINGS: Lungs: There is less confluent opacity in the inferior aspect of the central and peripheral right midlung zone. However, there are ill- defined somewhat reticular nodular changes identified throughout the periphery of the right lung and the left upper lung zone, slightly more prominent from the previous exam. A component of underlying pulmonary vascular congestion cannot be excluded. Pleural space: The costophrenic margins are sharp without large pleural effusion. No pneumothorax. Heart: Unremarkable. No cardiomegaly. Mediastinum: Stable. No tracheal deviation. Bones/joints: Unremarkable. IMPRESSION: There is less confluent opacity in the inferior aspect of the central and peripheral right midlung zone. However, there are ill-defined somewhat reticular nodular changes identified throughout the periphery of the right lung and the left upper lung zone, slightly more prominent from the previous exam. Findings are nonspecific but are consistent with reported viral pneumonia. No developing large pleural effusion or pneumothorax.
--- NOTE | 2020-04-22 01:33 | P.EN ---
A Team Note Activated at 12:41 AM. The patient seen and examined at the bedside shortly after. Discussed the case with the RN and reviewed the chart. The patient is admitted for covid pneumonitis and had a gradually worsening hypoxia, reported SpO2 of 75-80% on Airvo and a nonrebreather mask. Upon examination, the patient is an elderly female, speaking incoherently, lung examination revealed scattered rhonchi with no rales or wheezing appreciated. Extremities examination revealed left lower extremity colder to touch than right, pale, with diminished capillary refill. Dorsalis pedis pulse not palpable on the left with 1+ on the right. Chest x-ray was ordered and was reviewed, consistent with viral pneumonia. Lasix was ordered for the patient. Discussed the case with the patient's legal guardian who noted that he wishes for the patient to be made a no code. He understands that if her condition worsens, that she should not be placed on life support or undergo CPR and be allowed to pass peacefully. He wishes for all other interventions to continue at this current time. The patient's SpO2 improved to 85% following Lasix administration. Haldol 0.5 mg IM one time dose was ordered to help with agitation. BiPAP may be difficult due to patient's significant on-going agitation. The primary team was notified by the RN. The patient has a grave prognosis.
[2020-04-22] MEDS ORDERED: HEPARIN SODIUM,PORCINE 5,000 UNIT/ML 1 ML VIAL IV PRN (02:49)
[2020-04-22] MEDS ORDERED: HEPARIN SOD,PORK IN 0.45% NACL 25,000 UNIT in 0.45% NACL 1 250ML.BAG IV SCH (03:00)
[2020-04-22] MEDS: ACETAMINOPHEN TAB 500 MG TAB PO SCH (03:12)
[2020-04-22] MEDS ORDERED: HALOPERIDOL LACTATE 5 MG/ML 1 ML VIAL IM ONE (04:22)
[2020-04-22] MEDS: FUROSEMIDE 20 MG TAB PO SCH (06:04)
[2020-04-22] MEDS: LEVOTHYROXINE 25 MCG TAB PO SCH (06:04)
[2020-04-22] MEDS: oxyCODONE-APAP 10-325MG 1 EACH TAB PO SCH ×4 (06:04→18:14)
[2020-04-22] MEDS: ALBUTEROL HFA INHALER INHALATION SCH ×3 (07:39→15:30)
[2020-04-22] MEDS: SYMBICORT 80-4.5 MCG INHALER INHALATION SCH (07:40)
[2020-04-22] MEDS: Tofacitinib Citrate [Xeljanz Xr] 11 MG Tab.Er.24h PO SCH (09:02)
[2020-04-22] MEDS: CARBIDOPA-LEVODOPA 25-100 MG 1 EACH TAB PO SCH ×2 (09:06→13:02)
[2020-04-22] MEDS: ZINC SULFATE 220 MG CAP PO SCH (09:06)
[2020-04-22] MEDS: DICYCLOMINE 10 MG CAP PO SCH (09:06)
[2020-04-22] MEDS: POTASSIUM CHLORIDE ER 20 MEQ TAB.ER PO SCH (09:06)
[2020-04-22] MEDS: levETIRAcetam 500 MG TAB PO SCH (09:06)
[2020-04-22] MEDS: LORATADINE 10 MG TAB PO SCH (09:07)
[2020-04-22] MEDS: PANTOPRAZOLE 40 MG TABLET PO SCH (09:07)
[2020-04-22] MEDS: ASCORBIC ACID 500 MG TAB PO SCH (09:07)
[2020-04-22] MEDS: GABAPENTIN 300 MG CAP PO SCH ×2 (09:07→13:02)
[2020-04-22] MEDS: atenoloL 25 MG TAB PO SCH (09:07)
[2020-04-22] MEDS: BACLOFEN 10 MG TAB PO SCH ×2 (09:07→13:02)
[2020-04-22] MEDS: CHOLECALCIFEROL 1,000 UNIT TAB PO SCH (09:07)
[2020-04-22] MEDS: busPIRone HCl 10 MG TAB PO SCH (09:07)
[2020-04-22] MEDS: DEXAMETHASONE SOD PHOSPHATE 10 MG/ML 1 ML VIAL IV SCH (09:08)
[2020-04-22] MEDS: SODIUM CHLORIDE 0.45% 1,000 ML IV SCH (10:18)
[2020-04-22] MEDS: HYDROPHILIC CREAM 180 GM TUBE TOPICAL SCH (10:36)
[2020-04-22 11:07] VITALS: BP 175/82; PULSE 78; RESP 20; TEMP 98.5
[2020-04-22] MEDS: ALPRAZolam 0.25 MG TAB PO SCH (11:18)
[2020-04-22 11:39] LABS: C Reactive Protein 18.5 mg/dL (0.0-0.8)
[2020-04-22] MEDS: FOLIC ACID 1 MG TAB PO SCH (13:02)
[2020-04-22] MEDS ORDERED: MORPHINE SULFATE 4 MG/ML SYRINGE IVP PRN (14:04)
[2020-04-22] MEDS ORDERED: LORazepam 2 MG/ML INJ IV PRN (14:28)
[2020-04-22] MEDS ORDERED: ATROPINE OPHTH SOLN 1% 5ML BTL SUBLINGUAL PRN (14:28)
[2020-04-22] MEDS ORDERED: MORPHINE SULFATE (100 MG/2 ML) 100 MG in SODIUM CHLORIDE 0.9% 100 ML IV SCH (15:00)
[2020-04-22] MEDS ORDERED: SCOPOLAMINE 1.5MG/72HR PATCH TRANSDERM SCH (15:00)
--- NOTE | 2020-04-22 15:25 | P.PN ---
Subjective Progress Note Date: 04/22/20 Acute hypoxic respiratory failure secondary to COVID-19 pneumonia. 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 Patient recently tested positive at [facility] with rapid Covid testing reported yesterday to the nurse and patient experienced increasing difficulty with breathing with hypoxia, pulse ox down in the low 80s. Patient was having shortness of breath. No chest pain or palpitations. No fever or chills. No cough. Patient was transferred to [facility] emergency center for evaluation. Patient was afebrile, heart rate 65, blood pressure 105/75, pulse ox 94% EKG was a sinus rhythm with no acute ST changes. Chest x-ray positive for pneumonia Data CBC 6.5, hemoglobin 9.1, platelet count 312. Electrolytes normal. BUN 21 and creatinine 1.28. Blood sugar 113. AST 70. LDH 1120, C-reactive protein 55.6. Lactic acid 1.1. Influenza testing negative. Subsequently, COVID-19 ordered. 04/16/2020 Patient is currently lying in bed comfortably. No complaints of chest pain or shortness of breath. Still requiring oxygen at 15 L high flow via nasal cannula. Patient has been afebrile. Patient is being continued antibiotics in the form of ceftriaxone and azithro mycin. Also continued on dexamethasone and Eliquis. Patient is a poor historian due to underlying dementia. Laboratory data reviewed. 04/17/2020 Patient is currently lying in bed comfortably. No acute distress. Still requiring 15 L high flow oxygen via nasal cannula. Chest x-ray showed mild patc hy infiltrate in the left mid and lower lung. Patient is being continued on dexamethasone, Eliquis and vitamin supplementation. Patient has been afebrile otherwise. Follow-up CBC and BMP tomorrow. Current medications reviewed. 04/18/2020 Patient is seen and evaluated and follow-up continues to be confused and pulling out IV catheter. Multiple attempts have been made by nursing staff and an order for a midline was placed. Patient continues to require 15 L high flow via nasal cannula along with a nonrebreather and needs constant redirection as she continues to try to take off the oxygen. Patient is maintained on dexamethasone and vitamin supplementation and will continue at this time. Patient also continues on IV antibiotics in the form of ceftriaxone and azithromycin. Review of systems: Unable to obtain as patient is confused 04/19/2020 Patient is seen and evaluated in follow-up and appears to be more alert and oriented today. Patient does have a sitter at the bedside she was continuing to remove her nasal cannula nonrebreather. Patient currently remains on 15 L high flow along with nonrebreather and discussed with nursing staff about weaning FiO2 as tolerated she was 97%. Repeat chest x-ray done today shows patchy density in the right upper and right lower lobe possible left upper lobe with no evidence of pneumothorax or pleural effusion noted. Patient was also noted to have low-grade fevers which responded with Tylenol. Patient is eating today and taking medications and will continue with current medication regimen. Pulmonary is following. 04/20/2020 Patient seen in follow-up continues to be severely dyspneic and was maintained on 15 L high flow along with nonrebreather at 89% saturation. Pulmonary following closely. Patient was placed on Airvo and tolerating thus far. Will continue to monitor respiratory status closely. Patient continues to be alert today although lethargic and responding appropriately to questions and commands. Patient has little oral intake although is taking medications per nursing staff. Sodium slightly improved at 141, potassium is 4.9, creatinine remains at 0.9, and blood sugars continue to be slightly elevated most likely due to steroids. Patient remains on IV antibiotics in the form of ceftriaxone and oral Zithromax. Patient is currently afebrile 04/21/2020 Patient is seen and evaluated in follow-up currently maintained on airvo at 60% along with a nonrebreather on 15 L and is currently maxed with oxygenation of 90%. Patient continues to be lethargic although is arousable and responding appropriately. Patient continues to be quite weak and lethargic and falls asleep easily. Oral intake is fairly poor and minimal at this time. Patient needs maximum assistance. Discussed with legal guardian about CODE STATUS yesterday and wishes to continue with full code without mechanical ventilation and will continue to monitor closely. Patient's prognosis is poor and showing no real improvement at this time. Will continue to monitor and readdress with legal guardian based on clinical course. 04/22/2020 Patient is seen in follow-up today and a Ateam was called on her earlier this morning her respiratory status continues to deteriorate patient remains on Airvo maxed out along with a nonrebreather at 15 L and saturating in the low 80s. Patient would not tolerate a BiPAP. Patient is becoming more anxious and restless and yelling out in pain and has been receiving pain medications. Patient is not eating. Chest x-ray was done early this morning showing an ill- defined somewhat reticular nodular change identified throughout the periphery of the right lung and left upper lung zone slightly more prominent from the previous exams along with less confluent opacity in the inferior aspect of the central peripheral right midlung zone with no developing large pleural effusion or pneumothorax noted. Patient's left lower extremity is also noted to be cold to the touch with poor pulses noted and mottling of the skin that is traveling up the extremity. Patient is not answering questions appropriately and continues to call out for help. Patient's CODE STATUS was changed with legal guardian and made a no code. Review of systems: Unable to obtain given patient's current clinical status All medications have been reviewed Objective - Vital Signs Vital signs: Vital Signs Temp 98.5 F 04/22/20 11:00 Pulse 78 04/22/20 11:00 Resp 20 04/22/20 11:00 BP 175/82 04/22/20 11:00 Pulse Ox 85 L 04/22/20 11:00 Intake & Output 04/21/20 04/22/20 04/22/20 18:59 06:59 18:59 Intake Total 900 64.58 Output Total 1901 1751 Balance -1901 900 -1686.42 Weight 83.007 kg Intake: Intake, IV Titration 900 64.58 Amount Heparin Sod,Pork in 0.45% 64.58 NaCl 25,000 unit In 0.45 % NaCl 1 250ml.bag @ 12 UNITS/KG/HR 9.961 mls/hr IV .Q24H [facility] Rx#: [id number] Sodium Chloride 0.45% 1, 900 000 ml @ 75 mls/hr IV . [id number] [facility] Rx#:[id number] Output: Urine 1900 1750 Uretheral (Arceo) 900 1750 Stool 1 1 Other: Voiding Method Indwelling Catheter Indwelling Catheter Indwelling Catheter - Exam Gen: This is a 74-year-old female lying in bed, restless and anxious, alert and oriented 1, well-developed, well-nourished. HEENT: Head is atraumatic, normocephalic. Pupils equal, round. Sclerae is anicteric. NECK: Supple. No JVD. No lymphadenopathy. No thyromegaly. LUNGS: Diminished breath sounds bilaterally with some scattered rhonchi and crackles noted. No intercostal retractions. Airvo now present along with nonrebreather at 15 L HEART: S1, S2 are muffled ABDOMEN: Soft. Bowel sounds are present. No masses. No tenderness. EXTREMITIES: No pedal edema. No calf tenderness. NEUROLOGICAL: Patient is awake, alert and oriented x1 to name. Tremors noted. diffusely weak - Labs CBC & Chem 7: 04/21/20 06:26 04/21/20 06:26 Labs: Abnormal Lab Results - Last 24 Hours (Table) 04/22/20 04/22/20 04/22/20 Range/Units 00:42 00:54 07:37 APTT (22.0-30.0) sec ABG pO2 41 L* (83-108) mmHg ABG HCO3 28 H (21-25) mmol/L ABG Total CO2 30 H (19-24) mmol/L ABG O2 Saturation 75.3 L (94-97) % POC Glucose (mg/dL) 223 H (75-99) mg/dL C-Reactive Protein 18.5 H (0.0-0.8) mg/dL 04/22/20 Range/Units 07:37 APTT 43.4 H (22.0-30.0) sec ABG pO2 (83-108) mmHg ABG HCO3 (21-25) mmol/L ABG Total CO2 (19-24) mmol/L ABG O2 Saturation (94-97) % POC Glucose (mg/dL) (75-99) mg/dL C-Reactive Protein (0.0-0.8) mg/dL Assessment and Plan Assessment: -Acute hypoxic respiratory failure secondary to COVID-19 pneumonia. Patient maintained on azithromycin 500 which has been transitioned oral, ceftriaxone 1 g IV piggyback daily, dexamethasone 6 mg IV, vitamin C 500 mg daily, vitamin D 5000 units daily, zinc 220 mg daily, albuterol inhaler 4 times daily as needed. Pulmonary following. Patient was maintained on nasal cannula along with nonrebreather at 15 L and has been transitioned to Airvo along with nonrebreather and continues to be severely dyspneic and working to breathe. Ill-appearing and exhausted, oxygen saturations continue to deteriorate and currently 81% maxed out on nonrebreather and Airvo -Elevated d-dimer secondary to Covid 19. -Chronic kidney disease stage III, stable. -Hypertension -History of bilateral PE and bilateral DVT on lifelong anticoagulation with Eliquis. -Hemiparesis left side from previous CVA. -Parkinson's disease. Tremors noted -Hypothyroidism. -Seizure disorder. -Anemia of chronic kidney disease. -Chronic hypoxic respiratory failure on home O2 at 3 L nasal cannula. -Chronic sacral ulcer stage III nonhealing -Recurrent depression, anxiety and panic attacks. -History of colorectal cancer status post radiation cellulitis of sacrum. -Full code without mechanical ventilation, status was discussed with legal guardian and will continue to reassess this patient's prognosis remains poor and guarded Plan: Continue current medications. Patient to continue with IV antibiotics along with breathing inhalational treatments. She has been transitioned airvo as she continued to be hypoxic and severely dyspneic on the nonrebreather and nasal cannula 15 L. Discussed with nursing staff about weaning FiO2 as tolerated. P atient is not tolerating oxygen well and continues to deteriorate and is maxed out on Airvo and NRB. Patient is not tolerating any form of weaning FiO2 and respiratory status continues to deteriorate. Discussed with legal guardian again today about clinical status and patient has been made a no code and will be transitioning to comfort care. Prognosis remains poor and guarded and will initiate comfort care orders an attempt to wean FiO2. Pulmonary following as well. Further recommendations to follow.
[2020-04-22] MEDS: AZITHROMYCIN 500 MG TAB PO SCH (15:39)
--- NOTE | 2020-04-22 18:14 | P.PN ---
Subjective Progress Note Date: 04/22/20 Principal diagnosis: CoVID 19 pneumonitis This is a 74-year-old female patient who resides at [facility] on the [facility]. She has a history of hypothyroidism, seizures, chronic obstructive pulmonary disease, CVA/TIA, hypertension, hyperlipidemia, rheumatoid arthritis, Parkinson's disease with tremors, anxiety/depression, panic disorder. Lifelong nonsmoker. He was brought into the emergency room today after being tested positive for CoVID and having low O2 saturations at the facility. She is seen today in consultation on the regular medical floor. She is currently awake and alert. She does have essential tremors. He is currently on 15 L high flow nasal cannula maintaining O2 saturations in the mid 90s. She's afebrile. Hemodynamically stable. Chest x-ray revealing low lung volumes. Patchy basilar density bilaterally. No sizable effusion. White count 6.5. Hemoglobin 9.1. D-dimer 0.82. Sodium 137. Potassium 4.6. Creatinine 1.28. LDH 1120. C- reactive protein 55.6. Pro-calcitonin 0.25. Influenza screen not detected. She is currently on azithromycin and ceftriaxone. Symbicort, albuterol.. Anticoagulated with Eliquis. Initiated on dexamethasone, vitamin C, vitamin D, zinc, melatonin, Pepcid. The patient is seen today 04/16/2020 in follow-up on the regular medical floor. She is currently resting on 2 L. Awake and alert in no acute distress. He is requiring 15 L high flow nasal cannula to maintain O2 saturations in the mid 90 s. She is afebrile. She remains on antibiotics in the form of ceftriaxone and azithromycin. Continued on bronchodilators. Anticoagulated with Eliquis. He remains on dexamethasone, vitamin C, vitamin D, zinc, melatonin, Pepcid The patient is seen today 04/17/2020 in follow-up on the regular medical floor. She remains awake and alert in no acute distress. He still requires 15 L high flow nasal cannula to maintain O2 saturations in the 90s. D-dimer 0.71. LDH 450. C-reactive protein 2.5. Chest x-ray continues to show mild patchy infiltrates felt the left mid and lower lung. She remains on dexamethasone, vitamin C, vitamin D, zinc, melatonin, Pepcid. Quite relieved with Eliquis. Sh e was outside the window for Remdesivir. The patient is seen today 04/22/2020 in follow-up on the regular medical floor. She is doing quite poorly. She has been on AirVo at 60 L and 90% FiO2 along with nonrebreather mask and maintaining O2 saturations in the mid 80s. She is restless. Yelling out. There was an A team called on her approximately 1:30 this morning. Arterial blood gases revealed a pO2 of 41, pCO2 of 41, pH 7.48 that was on 100% FiO2 at that time. Chest x-ray continues to reveal bilateral ill-defined reticular nodule changes felt appropriate the right lung and left upper lung zones. Family had been informed. She was made a DO NOT RESUSCITATE/DO NOT INTUBATE CODE STATUS. Objective - Vital Signs Vital signs: Vital Signs Temp 98.5 F 04/22/20 11:00 Pulse 78 04/22/20 11:00 Resp 20 04/22/20 11:00 BP 175/82 04/22/20 11:00 Pulse Ox 85 L 04/22/20 11:00 Intake & Output 04/21/20 04/22/20 04/22/20 18:59 06:59 18:59 Intake Total 900 66.994 Output Total 1901 1751 Balance -1901 900 -1684.006 Weight 83.007 kg Intake: Intake, IV Titration 900 66.994 Amount Heparin Sod,Pork in 0.45% 64.58 NaCl 25,000 unit In 0.45 % NaCl 1 250ml.bag @ 12 UNITS/KG/HR 9.961 mls/hr IV .Q24H [facility] Rx#: [id number] Morphine Sulfate (100 mg/ 2.414 2 ml) 100 mg In Sodium Chloride 0.9% 100 ml @ 1 MG/HR 1.02 mls/hr IV . Q24H [facility] Rx#:[id number] Sodium Chloride 0.45% 1, 900 000 ml @ 75 mls/hr IV . [id number] [facility] Rx#:[id number] Output: Urine 1900 1750 Uretheral (Arceo) 900 1750 Stool 1 1 Other: Voiding Method Indwelling Catheter Indwelling Catheter Indwelling Catheter - Exam GENERAL EXAM: Alert, confused, yelling out, 74-year-old female patient, Parkinson tremors, on AirVo high flow nasal cannula at XT liters and 90% FiO2, fairly comfortable in no apparent distress. HEAD: Normocephalic. EYES: Normal reaction of pupils, equal size. NOSE: Clear with pink turbinates. THROAT: No erythema or exudates. NECK: No masses, no JVD. CHEST: No chest wall deformity. LUNGS: Equal air entry with bilateral scattered rhonchi CVS: S1 and S2 normal with no audible murmur, regular rhythm. ABDOMEN: No hepatosplenomegaly, normal bowel sounds, no guarding or rigidity. SPINE: No scoliosis or deformity SKIN: Chronic sacral decubitus ulcer CENTRAL NERVOUS SYSTEM: Essential tremors, left-sided hemiparesis from previous CVA, tone is normal in all 4 extremities. EXTREMITIES: There is no peripheral edema. No clubbing, no cyanosis. Peripheral pulses are intact. - Labs CBC & Chem 7: 04/21/20 06:26 04/21/20 06:26 Labs: Abnormal Lab Results - Last 24 Hours (Table) 04/22/20 04/22/20 04/22/20 Range/Units 00:42 00:54 07:37 APTT (22.0-30.0) sec ABG pO2 41 L* (83-108) mmHg ABG HCO3 28 H (21-25) mmol/L ABG Total CO2 30 H (19-24) mmol/L ABG O2 Saturation 75.3 L (94-97) % POC Glucose (mg/dL) 223 H (75-99) mg/dL Lactate Dehydrogenase 1076 H (120-246) U/L C-Reactive Protein 18.5 H (0.0-0.8) mg/dL 04/22/20 Range/Units 07:37 APTT 43.4 H (22.0-30.0) sec ABG pO2 (83-108) mmHg ABG HCO3 (21-25) mmol/L ABG Total CO2 (19-24) mmol/L ABG O2 Saturation (94-97) % POC Glucose (mg/dL) (75-99) mg/dL Lactate Dehydrogenase (120-246) U/L C-Reactive Protein (0.0-0.8) mg/dL Assessment and Plan Assessment: 1 Acute on chronic hypoxic respiratory failure secondary to acute CoVID 19 pneumonitis, originally tested at [facility], outside the window for Remdesivir 2 Elevated d-dimer secondary to CoVID 19. On Eliquis. 3 History of bilateral PE and bilateral DVT on Eliquis in the outpatient setting 4 Chronic hypoxic respiratory failure on oxygen at 2-3 L 5 History of CVA with left-sided romi-paresis 6 Parkinson's disease with tremors 7 History of seizures 8 Hypertension 9 Chronic kidney disease stage III 10 Hypertension 11 Hypothyroidism 12 Chronic sacral ulcer stage III nonhealing 13 History of colorectal cancer status post radiation 14 History of anxiety/depression/panic attacks 15 Poor overall functional performance based on the above-mentioned multiple comorbidities, [facility] Plan: The patient was seen and evaluated by Dr. Gamble Chest x-ray and labs reviewed Her overall prognosis is quite poor He is a DO NOT RESUSCITATE/DO NOT INTUBATE CODE STATUS May consider comfort care I, the cosigning physician, performed a history & physical examination of the patient. Lungs sounds with bilateral scattered rhonchi. Maintaining good O2 saturations in the 80s on AirVo I discussed the assessment and plan of care with my nurse practitioner, Alycia Lancaster. I attest to the above note as dictated by her.
--- NOTE | 2020-04-25 11:55 | P.DS ---
Providers Date of admission: 04/14/20 18:06 Expected date of discharge: 04/22/20 Attending physician: Carolyn Delaney Consults: 04/15/20 15:27 Consult Physician Routine Consulting Provider: Michael Townsend Consult Reason/Comments: Covid pn Do you want consulting provider notified?: Yes 04/22/20 02:55 Consult Physician Urgent Consulting Provider: Samm Ovalles Consult Reason/Comments: possible LLE DVT Do you want consulting provider notified?: Yes Primary care physician: Carolyn Delaney Hospital Course: Final diagnosis -Acute hypoxic respiratory failure secondary to COVID-19 pneumonia -Elevated d-dimer secondary to Covid 19 -Chronic kidney disease stage III -Hypertension -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 -Hemiparesis left side from previous CVA. -Parkinson's disease -Hypothyroidism -Seizure disorder -Anemia of chronic kidney disease -Chronic hypoxic respiratory failure on home O2 at 3 L nasal cannula. -Chronic sacral ulcer stage III nonhealing -Recurrent depression, anxiety and panic attacks -History of colorectal cancer status post radiation cellulitis of sacrum Discharge disposition Patient has . Please refer to previous dictations for further HPI. Nursing note time of indicates 1934 Preliminary cause of Acute hypoxic respiratory failure secondary to Covid 19 pneumonia Hospital course This is a 74-year-old female who was recently admitted for [facility] as a resident there and it tested positive for Covid 19 with increasing shortness of breath and difficulty in breathing with hypoxia and was being closely monitored. Multiple medical consultations following. patient was placed on high flow oxygen at 15 L via nasal cannula and was initiated on IV antibiotics in the form of ceftriaxone along with Zithromax, dexamethasone, vitamin C and D, and zinc supplements. Patient continued to require high flow oxygen and respiratory status continued to worsen. Patient continued to have hypoxia with oxygen saturations in the 70s and 80s and at one point had become altered related to acute hypoxic respiratory failure and continued to pull the oxygen tubing and mask off and IVs out. Patient was then subsequently placed on Airvo and tolerated well and became more alert and oriented although continue to require high amounts of oxygen. Patient was eating very little and unable to tolerate being off any oxygen for any certain period of time. Patient status continued to deteriorate and CODE STATUS was discussed with legal guardian and changed to no code. Patient became more hypoxic in the 70s and was maintained on airvo along with nonrebreather with no improvement. Patient clinical status continued to deteriorate and was made comfort care per legal guardian. Legal guardian did discuss this with family members. Prognosis was extremely poor and guarded. Patient at 1935 on 04/22/2020. Please refer to previous dictations for further HPI Patient Condition at Discharge: Poor Plan - Discharge Summary Discharge Rx Participant: Yes New Discharge Prescriptions: No Action busPIRone HCL 15 mg PO BID@0900,2100 levETIRAcetam [Keppra] 500 mg PO BID@0900,2099 Levothyroxine Sodium [Synthroid] 25 mcg PO DAILY@0600 Folic Acid 1 mg PO DAILY@1300 Baclofen [Lioresal] 10 mg PO TID@0900,1300,2099 Fluticasone/Vilanterol [Breo Ellipta 100-25 Mcg Inhaler] 1 puff INHALATION RT-DAILY@0900 Nitroglycerin Sl Tabs [Nitrostat] 0.4 mg SL Q5M PRN PRN Reason: Chest Pain Acetaminophen Tab [Tylenol] 650 mg PO Q4H PRN PRN Reason: Pain Fluticasone Nasal Morton [Flonase Nasal Morton] 1 spray EA NOSTRIL BID PRN PRN Reason: Allergy Symptoms Melatonin 10 mg PO HS@2100 Tofacitinib Citrate [Xeljanz Xr] 11 mg PO DAILY@0900 Prostat Awc 30 ml PO BID@0900,2100 atenoloL [Tenormin] 25 mg PO DAILY@0900 Dicyclomine [Bentyl] 10 mg PO BID@0900,2100 Loratadine [Claritin] 10 mg PO DAILY@0900 Pantoprazole Sodium [Protonix] 40 mg PO DAILY@0600 Carbidopa-Levodopa 25-100 mg [Sinemet 25-100 mg] 1 tab PO TID@0900,1300,2100 Furosemide [Lasix] 20 mg PO DAILY@0600 Ipratropium/Albuter 20-100Mcg [Combivent Respimat 20-100Mcg Inhaler] 2 puff INHALATION RT-QID PRN PRN Reason: Shortness Of Breath Mag Hydrox/Aluminum Hyd/Simeth [Mylanta Maximum Strength Liq] 30 ml PO Q4H PRN PRN Reason: Indigestion Psyllium Husk 100% [Metamucil Packet] 6 gm PO DAILY PRN PRN Reason: Constipation Sennosides/Docusate Sodium [Senna-S 8.6-50 mg Tablet] 2 tab PO HS@2099 Apixaban [Eliquis] 5 mg PO BID@0900,2099 Gabapentin 600 mg PO TID@0900,1300,2100 #9 tab ALPRAZolam [Xanax] 0.25 mg PO BID@1300,2100 #6 tab oxyCODONE-APAP 10-325MG [Percocet 10-325 mg] 1 tab PO QID@,,17,21 traZODone HCL 150 mg PO HS@2099 Acetaminophen Tab [Tylenol] 500 mg PO DAILY@0600 Potassium Chloride [Klor-Con 20] 20 meq PO DAILY@0900 Sodium Chloride [Saline Nasal Morton] 2 spray EA NOSTRIL TID PRN PRN Reason: Nasal Congestion Discharge Medication List Baclofen [Lioresal] 10 mg PO TID@0900,1300,209902/22/16 [History] Folic Acid 1 mg PO DAILY@1300 02/22/16 [History] Levothyroxine Sodium [Synthroid] 25 mcg PO DAILY@0600 02/22/16 [History] busPIRone HCL 15 mg PO BID@0900,209902/22/16 [History] levETIRAcetam [Keppra] 500 mg PO BID@0900,209902/22/16 [History] Fluticasone/Vilanterol [Breo Ellipta 100-25 Mcg Inhaler] 1 puff INHALATION RT- DAILY@0900 05/15/18 [History] Nitroglycerin Sl Tabs [Nitrostat] 0.4 mg SL Q5M PRN 05/15/18 [History] Acetaminophen Tab [Tylenol] 650 mg PO Q4H PRN 06/13/18 [History] Fluticasone Nasal Morton [Flonase Nasal Morton] 1 spray EA NOSTRIL BID PRN 05/31 [History] Melatonin 10 mg PO HS@209906/14/18 [History] Tofacitinib Citrate [Xeljanz Xr] 11 mg PO DAILY@0900 08/05/18 [History] Dicyclomine [Bentyl] 10 mg PO BID@0900,209905/07/19 [History] Loratadine [Claritin] 10 mg PO DAILY@89905/07/19 [History] Pantoprazole Sodium [Protonix] 40 mg PO DAILY@59905/07/19 [History] Prostat Awc 30 ml PO BID@899,209905/07/19 [History] atenoloL [Tenormin] 25 mg PO DAILY@89905/07/19 [History] Apixaban [Eliquis] 5 mg PO BID@899,209901/15/20 [History] Carbidopa-Levodopa 25-100 mg [Sinemet 25-100 mg] 1 tab PO TID@0900,1299,209901/15/20 [History] Furosemide [Lasix] 20 mg PO DAILY@59901/15/20 [History] Ipratropium/Albuter 20-100Mcg [Combivent Respimat 20-100Mcg Inhaler] 2 puff INHALATION RT-QID PRN 01/15/20 [History] Mag Hydrox/Aluminum Hyd/Simeth [Mylanta Maximum Strength Liq] 30 ml PO Q4H PRN 01/15/20 [History] Psyllium Husk 100% [Metamucil Packet] 6 gm PO DAILY PRN 01/15/20 [History] Sennosides/Docusate Sodium [Senna-S 8.6-50 mg Tablet] 2 tab PO HS@209901/15/20 [History] ALPRAZolam [Xanax] 0.25 mg PO BID@1299,2099 #6 tab 01/19/20 [Rx] Gabapentin 600 mg PO TID@899,1299,2099 #9 tab 01/19/20 [Rx] Acetaminophen Tab [Tylenol] 500 mg PO DAILY@59904/14/20 [History] Potassium Chloride [Klor-Con 20] 20 meq PO DAILY@89904/14/20 [History] Sodium Chloride [Saline Nasal Morton] 2 spray EA NOSTRIL TID PRN 04/14/20 [History] oxyCODONE-APAP 10-325MG [Percocet 10-325 mg] 1 tab PO QID@09,13,17,21 04/14/20 [History] traZODone HCL 150 mg PO HS@2100 12/03/20 [History] Follow up Appointment(s)/Referral(s): Carolyn Delaney MD [Primary Care Provider] - 1-2 days Patient Instructions/Handouts: Heart Failure (DC) Discharge Disposition: STILL PT- FOR INTERIM BILLING
--- NOTE | 2020-04-26 08:20 | CDI ---
Documentation Clarification Form Date: 04/26/2020 07:59:52 AM From: Ca Abraham CCS, CCDS Admit Date: 04/14/2020 06:06:00 PM Patient Name: Aspen Mendoza Visit Number: [id number] Discharge Date: 04/22/2020 09:24:00 PM ATTENTION: The Clinical Documentation Specialists (CDI) and [facility] Coding Staff appreciate your assistance in clarifying documentation. Please respond to the clarification below the line at the bottom and electronically sign. The CDI & [facility] Coding staff will review the response and follow-up if needed. Please note: Queries are made part of the Legal Health Record. If you have any questions, please contact the author of this message via ITS. Dr. Jeovanny Vee: Heart Failure is documented in the patient's history without further specificity. No peripheral or pedal edema noted. Pulmonary vascular congestion not excluded on 04/22 CXR. History/Risk Factors: Hypertension, CKD III, CHF, Hemiparesis left side from previous CVA, Bilateral PEs & Bilateral DVTs on Eliquis, Parkinson's disease with Tremors, Hypothyroidism, Anemia of CKD, Chronic Hypoxic Respiratory Failure on Home O2, Chronic Sacral Ulcer Stage III non healing, History of Colorectal Cancer status post radiation and radiation cellulitis. Resides in Longterm. Clinical Indicators: Presented to the ED on 04/14 from half-way via EMS with SOB, previously tested positive for COVID 19. Admit with COVID 19 Pneumonia. Patient's respiratory status worsening, patient on 04/22 after being made DNR & Comfort Care by legal guardian. VS 04/14: T 98.5, P 65, R 20, BP 105/75, PO 94 10L nrb BMI: 32.4 LAB 04/14: WBC (26.4), Neut (4.6), Lymph (1.3), D Dimer 0.82^, BUN 21^, Cr 1.28^, Gluc 113^, AST 70^, Lactate Dehydrogenase 1120^, CRP 55.6^, Albumin 3.3*, Procalcitonin 0.25^. 04/14: Influenza A/B: Negative LAB 04/15: COVID Positive LAB 04/19: WBC 15.0^, Hgb 9.8*, Neut 12.90^, Anion Gap 14.30^, Glucose 182^ RAD: 04/14 CXR: Correlate for pneumonia. 04/17 CXR: Mild patchy infiltrates left mid & lower lung. 04/19 CXR: Correlate for pneumonia. 04/22 CXR: Pulmonary vascular congestion not excluded. Findings consistent with viral pneumonia. BNP: Not done Echocardiogram Results (Most Recent 05/08/2019): Mild LVH, Left ventricular systolic function normal w/EF 55-60%, Mild MR, Trace TR. Treatment: On Home dose Lasix 20 mg daily (Received 04/15), IV Lasix 04/22. In your professional opinion, can you please clarify the acuity and type of CHF if known? Heart Failure is ruled out Heart Failure is ruled in: Diastolic Heart Failure: o Acute o Chronic o Acute on Chronic Systolic & Diastolic Heart Failure: o Acute o Chronic o Acute on Chronic Heart Failure Unable to Determine Other, please specify (Last Revision: August 2017) Heart Failure is ruled out MTDD
--- NOTE | 2020-04-26 08:34 | CDI ---
Documentation Clarification Form Date: 04/26/2020 08:22:35 AM From: Ca ULISSES Abraham, CCDS Admit Date: 04/14/2020 06:06:00 PM Patient Name: Aspen Mendoza Visit Number: [id number] Discharge Date: 04/22/2020 09:24:00 PM ATTENTION: The Clinical Documentation Specialists (CDI) and [facility] Coding Staff appreciate your assistance in clarifying documentation. Please respond to the clarification below the line at the bottom and electronically sign. The CDI & [facility] Coding staff will review the response and follow-up if needed. Please note: Queries are made part of the Legal Health Record. If you have any questions, please contact the author of this message via ITS. Dr. Jeovanny Vee: Patient presented form a [facility] 04/14 with previously positive COVID test via EMS with SOB, diagnosed with COVID related pneumonia, treated with IV antibiotics, Vit C & D & Zinc, patient's respiratory condition worsened and patient on 04/22. History/Risk Factors: Hypertension, CKD III, CHF, Hemiparesis left side from previous CVA, Bilateral PEs & Bilateral DVTs on Eliquis, Parkinson's disease with Tremors, Hypothyroidism, Anemia of CKD, Chronic Hypoxic Respiratory Failure on Home O2, Chronic Sacral Ulcer Stage III non healing, History of Colorectal Cancer status post radiation and radiation cellulitis. Resides in [facility]. Clinical Indicators: Admit with COVID 19 Pneumonia. Patient's respiratory status worsening, patient on 04/22 after being made DNR & Comfort Care by legal guardian. VS 04/14: T 98.5, P 65, R 20, BP 105/75, PO 94 10L nrb VS 04/18: T 101.1^, P 88, R 18, BP 139/95, PO 88 15L high flow LAB 04/14: WBC (26.4), Neut (4.6), Lymph (1.3), D Dimer 0.82^, BUN 21^, Cr 1.28^, Gluc 113^, AST 70^, Lactate Dehydrogenase 1120^, CRP 55.6^, Albumin 3.3*, Procalcitonin 0.25^. 04/14: Influenza A/B: Negative LAB 04/15: COVID Positive LAB 04/19: WBC 15.0^, Hgb 9.8*, Neut 12.90^, Anion Gap 14.30^, Glucose 182^ 04/14 Blood Culture: negative @ 144 hours. RAD: 04/14 CXR: Correlate for pneumonia. 04/17 CXR: Mild patchy infiltrates left mid & lower lung. 04/19 CXR: Correlate for pneumonia. 04/22 CXR: Pulmonary vascular congestion not excluded. Findings consistent with viral pneumonia. Treatment 04/14: po Hexadrol, 10L nrb - vnm. 04/15: INH Symbicort, Vit D3, Vit C, Orazinc, IV Rocephin, IV Azithromycin, INH Ventolin, O2 15L nrb . 04/19 IV Decadron. O2 30L high flow. 04/20: 60L high flow. In your professional opinion, please clarify if these findings signify one of the following conditions, whether the condition is POA, and cause, if known: Sepsis o Severe Sepsis Other, please specify Unable to determine Present on Admission: Yes or No Link or clarify if there is associated (due to/with): Organ failure (Last Revision: August 2017) Sepsis MTDD
== END 2020-04-22 21:24 | disposition expired | DRG 177 ==
LOC: EC 15:34 → 4SSUR 18:06 → 6NMEDSUR 22:44
PROVIDERS: ADMIT Internal Medicine; ATTEND Internal Medicine
PROC: 05HF33Z Insertion of Infusion Device into Left Cephalic Vein, Percutaneous Approach (ICD-10-PCS; principal; 2020-04-18 14:00)
DX: U07.1 COVID-19 (principal); L89.153 Pressure ulcer of sacral region, stage 3; J12.89 Other viral pneumonia; J96.21 Acute and chronic respiratory failure with hypoxia; A41.9 Sepsis, unspecified organism; F33.9 Major depressive disorder, recurrent, unspecified; J44.0 Chronic obstructive pulmonary disease with (acute) lower respiratory infection; I13.0 Hypertensive heart and chronic kidney disease with heart failure and stage 1 through stage 4 chronic kidney disease, or unspecified chronic kidney disease; G81.94 Hemiplegia, unspecified affecting left nondominant side; E78.5 Hyperlipidemia, unspecified; E03.9 Hypothyroidism, unspecified; D63.1 Anemia in chronic kidney disease; F02.80 Dementia in other diseases classified elsewhere, unspecified severity, without behavioral disturbance, psychotic disturbance, mood disturbance, and anxiety; Z66 Do not resuscitate; Z51.5 Encounter for palliative care; Z96.643 Presence of artificial hip joint, bilateral; Z96.651 Presence of right artificial knee joint; M06.9 Rheumatoid arthritis, unspecified; F41.0 Panic disorder [episodic paroxysmal anxiety]; G20 Parkinson's disease; N18.30 Chronic kidney disease, stage 3 unspecified; G40.909 Epilepsy, unspecified, not intractable, without status epilepticus; L59.8 Other specified disorders of the skin and subcutaneous tissue related to radiation; Y84.2 Radiological procedure and radiotherapy as the cause of abnormal reaction of the patient, or of later complication, without mention of misadventure at the time of the procedure; K21.9 Gastro-esophageal reflux disease without esophagitis; I25.10 Atherosclerotic heart disease of native coronary artery without angina pectoris; G25.0 Essential tremor; G62.9 Polyneuropathy, unspecified; I50.9 Heart failure, unspecified; Z79.899 Other long term (current) drug therapy; Z79.01 Long term (current) use of anticoagulants; Z79.890 Hormone replacement therapy; Z88.5 Allergy status to narcotic agent; Z88.0 Allergy status to penicillin; Z88.2 Allergy status to sulfonamides; Z88.8 Allergy status to other drugs, medicaments and biological substances; Z88.6 Allergy status to analgesic agent; Z91.041 Radiographic dye allergy status; Z86.711 Personal history of pulmonary embolism; Z90.710 Acquired absence of both cervix and uterus; Z87.891 Personal history of nicotine dependence; Z92.3 Personal history of irradiation; Z98.42 Cataract extraction status, left eye; Z98.41 Cataract extraction status, right eye; Z86.718 Personal history of other venous thrombosis and embolism; Z82.49 Family history of ischemic heart disease and other diseases of the circulatory system; Z80.9 Family history of malignant neoplasm, unspecified; Z82.3 Family history of stroke; Z85.048 Personal history of other malignant neoplasm of rectum, rectosigmoid junction, and anus; Z99.3 Dependence on wheelchair; Z99.81 Dependence on supplemental oxygen; Z78.1 Physical restraint status
CPT/HCPCS: 36410; 36415; 36600; 71045; 76937; 80048; 80053; 82728; 82805; 83605; 83615; 83735; 84145; 85025; 85379; 85610; 85730; 86140; 87040; 87502; 87635; 93005; 94640; 99291